=== PATIENT | female | born 1980 | race Caucasian/White ===

== ENCOUNTER 2018-04-30 09:49 | Outpatient (CLI) | payer MEDICARE, MEDICAID, SELFPAY ==
--- NOTE | 2018-04-30 09:32 | DI.RAD_ITS ---
SYMPTOMS/DIAGNOSIS: ACHILLES TENDINITIS, M76.62 LEFT ANKLE: No fracture or ankle mortise widening is seen. No talar dome defect is identified. There is minimal periarticular spurring. IMPRESSION: Minimal degenerative changes.
== END 2018-04-30 10:09 ==
PROVIDERS: PCP Internal Medicine; Visit Provider Nurse Practitioner Family
DX: M76.62 Achilles tendinitis, left leg (principal); M19.072 Primary osteoarthritis, left ankle and foot
CPT/HCPCS: 73610

== ENCOUNTER 2018-05-20 15:01 | Outpatient (REF) | payer MEDICARE, MEDICAID, SELFPAY | END 2018-05-20 15:21 | LOC: NCHCN 15:01 | PROVIDERS: PCP Internal Medicine; Visit Provider Nurse Practitioner Family | DX: M25.532 Pain in left wrist (principal) | CPT/HCPCS: 84550 ==

== ENCOUNTER → 2018-06-18 08:53 | Outpatient (BNVA) | payer MEDICARE, MEDICAID, SELFPAY | PROVIDERS: PCP Internal Medicine; Referring Provider Internal Medicine; Visit Provider Student in an Organized Health Care Education/Training Program | DX: M76.62 Achilles tendinitis, left leg (principal) | CPT/HCPCS: 99204; 99214; L4361 ==

== ENCOUNTER → 2018-07-23 09:30 | Outpatient (BNVA) | payer MEDICARE, MEDICAID, SELFPAY | PROVIDERS: PCP Internal Medicine; Referring Provider Internal Medicine; Visit Provider Student in an Organized Health Care Education/Training Program | DX: M77.52 Other enthesopathy of left foot and ankle (principal); M25.572 Pain in left ankle and joints of left foot | CPT/HCPCS: 99213 ==

== ENCOUNTER 2018-08-06 01:45 | Outpatient (CLI) | payer MEDICARE, MEDICAID, SELFPAY ==
--- NOTE | 2018-08-06 10:53 | DI.MRI_ITS ---
SYMPTOMS/DIAGNOSIS: LT ACHILLES TENDINITIS MRI OF THE LEFT ANKLE: Routine noncontrast examination was performed. The Achilles tendon has a normal appearance. No evidence of a tear is seen. The peroneal tendons are unremarkable as are the extensor and flexor ankle tendons. The anterior and posterior distal tibial and fibular ligaments, anterior posterior talofibular and the calcaneofibular ligaments are all intact. The deltoid and spring ligaments are unremarkable. The muscles show normal signal and size. No significant muscular fatty fatty is seen. There is normal marrow signal. No evidence of an occult fracture or avascular necrosis. No soft tissue mass or suspicious focal fluid collection is seen. The plantar fascia has a normal appearance. IMPRESSION: 1. No evidence of an ankle ligament or tendon tear. 2. No evidence of an occult fracture.
== END 2018-08-06 02:05 ==
PROVIDERS: PCP Internal Medicine; Visit Provider Student in an Organized Health Care Education/Training Program
DX: M76.62 Achilles tendinitis, left leg (principal)
CPT/HCPCS: 73721

== ENCOUNTER 2018-08-08 19:44 | Emergency (ER) | payer MEDICARE, MEDICAID, SELFPAY ==
[2018-08-08 19:43] VITALS: BP 110/61; PULSE 65; RESP 24; TEMP 36.6; O2SAT 97
--- NOTE | 2018-08-08 20:06 | ED.GENADUL_ITS ---
Discharge Plan Disposition Patient Disposition: HOME Condition: Good Discharge Details Chief Complaint: Dizzy/Sync Clinical Impression: Nausea, vomiting and diarrhea, Syncope Reason For Visit: CELENA Primary Care Provider: Zafar Altman ED Provider: Zafar Rodriguez Home Meds and New Rx's Prescriptions: Continued citalopram 20 MG tablet 20 mg PO DAILY RF: 0 nicotine 1 EACH patch 24 hour 1 ea Transdermal DAILY RF: 0 levalbuterol tartrate [Xopenex HFA] 15 GM HFA aerosol inhaler 45 mcg Inhalation Q6H PRN RF: 0 lorazepam 1 MG tablet 1 mg PO PRN RF: 0 Discharge Instructions Instructions: Syncope (ED), Acute Nausea and Vomiting (ED) Additional Instructions: Do not take any more amoxicillin until you discuss with your primary care. Rest and take it easy over the weekend. Decrease your caffeine intake and increase your fluid intake. Return to emergency department if further syncopal events, persistent vomiting, bloody diarrhea, fever, difficulty breathing, or other concerns. Contact primary care on Saturday for follow-up. Stand Alone Forms: Work Release Referrals: Zafar Altman [Primary Care Provider] - Medical Decision Making Patient would appear to have had an allergic type reaction, however, her symptoms completely resolved on their own. Given her complaints of pruritus with syncope and GI symptoms would be classified as anaphylaxis. She did not receive any type of therapy other than fluids and symptoms have resolved on her own. Therefore, unclear to me exactly what happened. She has had amoxicillin before. She has no complaints of now. She has normal vital signs. Nursing had done EKG and labs prior to me seeing her. EKG is normal. Labs are pending. I have decided to observe for a few hours and not treat for anything at this point. Patient has remained stable here. She complains of nausea and does continue to have diarrhea but no vomiting. She is developing a little bit of a migraine headache which is not something new for her. She has been stable otherwise. Her laboratory studies are unremarkable. I am not going to treat for allergic reaction. However, I will hold the amoxicillin and have her discuss with her primary care on Saturday. May be unrelated this may just be part of a gastroenteritis. She will receive a dose of Zofran prior to discharge. Take it easy over the weekend. No more amoxicillin. Follow-up with primary care on Saturday. Return to the ED if any further allergy type symptoms, fever, persistent vomiting, other concerns. Lab Data Lab results reviewed: Yes I reviewed the patient's lab results. ECG Data Attestation: I personally reviewed and interpreted this ECG (s) as follows: Prior ECG tracings: not available for review Interpretation: Normal EKG. Sinus rhythm at 69. Normal axis and intervals. Normal ST segments. HPI General Mode of arrival: EMS . Date/Time Provider Initiated Documentation: 08/08/18 19:56 . Limitations to Documentation: no limitations . Information obtained by: patient, EMS and RN notes reviewed . HPI Narrative: Patient presents to the ED by ambulance after possible allergic reaction. Patient reports that she has been battling URI/sinus symptoms for close to 4 weeks. She was put on amoxicillin by her primary care and took her first dose today. She has been on it previously. Within about 20 minutes of taking this she started to feel itching mostly in the back of her head/neck, arms and hands. She felt hot all over. She started to feel lightheaded and nauseated. She went into the bathroom where she had vomiting and diarrhea. She felt like she was having some difficulty breathing. Apparently there was a syncopal event. On EMS arrival she was awake and alert. She had normal vital signs. She was transported here without intervention other than 500 mL's of saline. She arrives here anxious and upset but reports that all of the other symptoms have seemingly resolved on their own. She no longer has any pruritus. She no longer has nausea or dizziness. She did not feel throat swelling or shortness of breath. Related Data Home Medications Medication Instructions Recorded Confirmed citalopram 20 mg PO DAILY tab-cap NS 07/29/13 07/23/18 levalbuterol tartrate [Xopenex HFA] 45 mcg INHALATION Q6H PRN inhaler 07/29/13 07/23/18 NS nicotine 1 ea TRANSDERMAL DAILY script NS 07/29/13 07/23/18 lorazepam 1 mg PO PRN tab-cap 08/12/13 07/23/18 Allergies Allergy/AdvReac Type Severity Reaction Status Date / Time codeine Allergy Unverified 06/18/18 09:01 aspirin AdvReac Severe Anxiety, Unverified 06/18/18 09:01 sobbing NSAIDS (Non-Steroidal AdvReac GI Unverified 06/18/18 09:01 Anti-Inflamma General Stated Complaint: Dizzy/Sync BHANU: 3 Review of Systems Constitutional Denies fever(s), Denies headache(s) and Reports weakness Eyes Denies eye discharge and Denies eye pain ENT Denies headache(s), Reports nasal congestion, Denies neck pain, Reports sinus pain, Reports sinus pressure, Denies throat swelling and Denies tongue swelling Cardiovascular Denies chest pain, Denies diaphoresis, Reports syncope, Denies edema and Reports dyspnea Respiratory Denies cough, Reports dyspnea, Denies stridor and Denies wheezing Gastrointestinal Denies abdominal pain, Reports diarrhea, Reports nausea and Reports vomiting Genitourinary Denies dysuria and Denies pelvic pain Musculoskeletal Denies back pain, Denies neck pain and Denies numbness Integumentary/Breasts Reports pruritus and Denies rash Neurologic Reports syncope, Denies headache(s), Denies focal weakness, Denies numbness and Reports weakness Allergic/Immunologic Denies throat swelling, Denies tongue swelling and Denies wheezing PFSH Medical History Anxiety (Chronic) Asthma (Chronic) Depression (Chronic) Surgical History H/O laparoscopy (Inactive) Social History Smoking and Tabacco status: Current every day Exam Const General: cooperative, comfortable and no acute distress Nutritional Appearance: obese Orientation: alert and oriented x3 [facility] Head: normocephalic and atraumatic Throat: posterior oropharynx normal, uvula midline and no uvular edema Eyes Conjunctivae: conjunctivae normal Neck Neck: trachea midline and supple Resp Effort & Inspection: normal respiratory effort Auscultation: clear to auscultation bilaterally Cardio Rate: regular rate Rhythm: regular rhythm Heart Sounds: S1 normal and S2 normal GI Palpation: soft, not firm and nontender Skin General skin exam: no erythema Rashes: no rashes Neuro General: alert, oriented x3, moves all extremities, no focal motor deficits and CN's II-XI intact bilaterally Cognition: normal cognition Speech: speech normal Sensory Exam: no sensory deficits noted Extrem General: normal to inspection and no clubbing, cyanosis or edema Course Vital Signs Temperature 97.9 F 08/08/18 19:43 Pulse 65 08/08/18 19:43 Respiratory Rate 24 08/08/18 19:43 Blood Pressure 110/61 03/08/19 19:43 Pulse Oximetry 97 08/08/18 19:43 Temperature 97.9 F 08/08/18 19:43 Temperature Source Skin 08/08/18 19:43 Pulse 65 08/08/18 19:43 Respiratory Rate 24 08/08/18 19:43 Blood Pressure 110/61 08/08/18 19:43 Blood Pressure Position Sitting 08/08/18 19:43 Pulse Oximetry 97 08/08/18 19:43 Oxygen Delivery Method Room Air 08/08/18 19:43 Oxygen Flow Rate 0 08/08/18 19:43
[2018-08-08 20:13] LABS: Abs Immature Grans 0.05 k/cumm (0.0-0.09); Absolute Basophil Count 0.03 k/cumm (0.0-0.2); Absolute Eosinophil Count 0.29 k/cumm (0.0-0.7); Absolute Lymphocyte Count 4.22 k/cumm (1.2-3.4); Absolute Monocyte Count 0.44 k/cumm (0.11-0.7); Absolute Neutrophil Count 6.25 k/cumm (1.2-6.7); Basophils % 0.3; Eosinophils % 2.6; HCT 41.2 % (36.0-46.0); HGB 14.2 g/dL (12.0-15.5); Immature Grans % 0.4; Lymphocytes % 37.4; Mean Corp. HGB Concentration 34.5 g/dL (32.0-36.0); Mean Corpuscular Hemoglobin 31.3 pg (27.0-33.0); Mean Corpuscular Volume 90.7 fL (80-95); Mean Platelet Volume 9.5 fL (8.0-11.0); Monocytes % 3.9; Neutrophils % 55.4; Platelet Count 334 x1000/uL (130-400); RBC 4.54 m/cumm (4.00-5.20); RBC Distribution Width 12.9 % (11.7-14.6); White Blood Cell Count 11.28 k/cumm (4.4-10.8)
[2018-08-08 20:22] LABS: ALT 21 U/L (12-78); AST 16 U/L (15-37); Albumin 3.1 g/dL (3.4-5.0); Alkaline Phosphatase 73 U/L (46-116); Anion Gap 11.2 mmol/L (3-11); BUN 9 mg/dL (7-18); Bilirubin, Total 0.2 mg/dL (0.2-1.0); CO2 26.8 mmol/L (21.0-32.0); CREATININE 0.99 mg/dL (0.55-1.02); Calcium 8.5 mg/dL (8.5-10.1); Chloride 103 mmol/L (98-107); Glucose 113 mg/dL (70-100); Magnesium 1.8 mg/dL (1.8-2.4); Potassium 3.3 mmol/L (3.5-5.1); Sodium 141 mmol/L (136-145); Total Protein 6.4 g/dL (6.4-8.2)
[2018-08-08 20:28] LABS: Troponin I < 0.02 ng/mL (0.00-0.06)
[2018-08-08] MEDS: Ondansetron 4 MG/2 ML VIAL IVP (23:05)
[2018-08-08] MEDS: Lactated Ringers 1,000 ML 1000 ML IV (23:20)
[2018-08-09 00:09] VITALS: BP 104/61; PULSE 65; RESP 24; TEMP 36.6; O2SAT 97
== END 2018-08-09 00:09 | disposition home or self-care (01) ==
PROVIDERS: Emergency Provider Emergency Medicine; PCP Internal Medicine
DX: L29.9 Pruritus, unspecified (principal); R55 Syncope and collapse; R19.7 Diarrhea, unspecified; R11.0 Nausea; I95.9 Hypotension, unspecified; T36.0X5A Adverse effect of penicillins, initial encounter
CPT/HCPCS: 36415; 80053; 93005; 96361; 96374; 99284; 83735; 84484; 85025; 93010; 99285; J2405

== ENCOUNTER 2018-08-21 14:12 | Outpatient (REF) | payer MEDICARE, MEDICAID, SELFPAY ==
[2018-08-21 19:25] LABS: Anion Gap 9.1 mmol/L (3-11); BUN 9 mg/dL (7-18); CO2 25.9 mmol/L (21.0-32.0); CREATININE 0.76 mg/dL (0.55-1.02); Calcium 9.2 mg/dL (8.5-10.1); Chloride 104 mmol/L (98-107); Glucose 91 mg/dL (70-100); Potassium 4.3 mmol/L (3.5-5.1); Sodium 139 mmol/L (136-145)
[2018-08-21 19:54] LABS: HCT 39.3 % (36.0-46.0); HGB 13.7 g/dL (12.0-15.5); Mean Corp. HGB Concentration 34.9 g/dL (32.0-36.0); Mean Corpuscular Hemoglobin 32.2 pg (27.0-33.0); Mean Corpuscular Volume 92.3 fL (80-95); Mean Platelet Volume 9.9 fL (8.0-11.0); Platelet Count 321 x1000/uL (130-400); RBC 4.26 m/cumm (4.00-5.20); RBC Distribution Width 12.7 % (11.7-14.6); White Blood Cell Count 8.12 k/cumm (4.4-10.8)
== END 2018-08-21 14:32 ==
LOC: NCHCN 14:12
PROVIDERS: PCP Internal Medicine; Visit Provider Nurse Practitioner Family
DX: R19.7 Diarrhea, unspecified (principal); I95.9 Hypotension, unspecified
CPT/HCPCS: 80048; 85027; 84443

== ENCOUNTER 2018-12-23 00:34 | Outpatient (CLI) | payer MEDICARE, MEDICAID, SELFPAY ==
--- NOTE | 2018-12-23 11:00 | DI.US_ITS ---
SYMPTOMS/DIAGNOSIS: NECK PAIN, M54.2 ULTRASOUND EVALUATION OF THE RIGHT NECK: No evidence of a subcutaneous fluid collection is seen on the right. The visualized portions of the right common carotid artery, proximal, internal and external carotids are unremarkable. Small benign appearing lymph nodes are seen in the right neck. Incidental note is made of several thyroid nodules. Nonemergent thyroid ultrasound should be considered for further evaluation. IMPRESSION: No evidence of a soft tissue fluid collection or mass.
== END 2018-12-23 00:54 ==
PROVIDERS: PCP Internal Medicine; Visit Provider Nurse Practitioner Family
DX: M54.2 Cervicalgia (principal); R59.0 Localized enlarged lymph nodes; E04.2 Nontoxic multinodular goiter
CPT/HCPCS: 76536

== ENCOUNTER 2018-12-25 10:01 | Outpatient (CLI) | payer MEDICARE, MEDICAID, SELFPAY ==
--- NOTE | 2018-12-25 13:30 | DI.US_ITS ---
SYMPTOMS/DIAGNOSIS: THYROID NODULE, E04.1 THYROID ULTRASOUND: The right lobe of the thyroid measures 1.5 x 1.4 x 5 cm. The left lobe measures 1.3 x 1.6 x 4.9 cm. The overall thyroid echogenicity is mildly heterogeneous. There are several small hypoechoic nodules in both lobes of the thyroid, measuring less than 8 mm in size. There are no suspicious thyroid nodules. IMPRESSION: Normal-sized thyroid. There are multiple small thyroid nodules. No dominant suspicious nodule is identified.
== END 2018-12-25 10:21 ==
PROVIDERS: PCP Internal Medicine; Visit Provider Nurse Practitioner Family
DX: E04.2 Nontoxic multinodular goiter (principal)
CPT/HCPCS: 76536

== ENCOUNTER 2020-03-26 09:27 | Emergency (ER) | payer MEDICARE, MEDICAID, SELFPAY ==
[2020-03-26 09:31] VITALS: BP 119/83; PULSE 80; RESP 20; TEMP 36.6; O2SAT 99
--- NOTE | 2020-03-26 09:32 | ED.GENADUL_ITS ---
Discharge Plan Disposition Patient Disposition: HOME Condition: Good Discharge Details Clinical Impression: Strain of right trapezius muscle Primary Care Provider: Lashawn Mcnally ED Provider: Janet Cerda Home Meds and New Rx's Prescriptions: New metaxalone [Skelaxin] 800 mg tablet 800 mg PO TID PRN (Reason: muscle pain) Qty: 7 RF: 0 celecoxib [Celebrex] 200 mg capsule 200 mg PO BID PRN (Reason: pain) Qty: 14 RF: 0 Continued levalbuterol tartrate [Xopenex HFA] 15 GM HFA aerosol inhaler 45 mcg Inhalation Q6H PRN RF: 0 Discharge Instructions Instructions: Muscle Spasm (ED) Additional Instructions: Please encourage gentle stretching as discussed. Please continue to use the arm as much as possible, with the exception of activities that cause severe pain, as this will help relieve the muscle spasm. However, do not perform any heavy lifting at this may increase her discomfort. please continue with Tylenol 1000 mg 4 times daily to help with pain. Topical patches such as Salonpas or Lidoderm patches may help with discomfort. You may use the Skelaxin as needed to help with muscle spasm. Please not drive will take this medication as it can cause sedation. Keep out of reach of children. You may also use the Celebrex to help with discomfort, please use as directed. Please follow-up with your primary care in 1 week if pain is not resolved. If you develop numbness, tingling, increased pain or other new/worsening symptom please seek care urgently once again Stand Alone Forms: Work Release Referrals: Lashawn Mcnally [Primary Care Provider] - Discharge Data Discharge Date/Time-TO BE ENTERED AT DEPARTURE: 03/26/20 10:35 Medical Decision Making Patient is a 39-year-old [id number] female presented to complaint of right shoulder pain. She reports approximately 1/2 hours prior to arrival she was walking on a hill when she slipped on some mud and fell backwards landing on the right shoulder. She denies any numbness or tingling. Denies other injury the time of the incident. Indicates the upper area as area of maximal discomfort. She does trace the trapezius. She denies any pain in the elbow, wrist, hand. No previous surgeries to the shoulder. Patient status post tubal ligation. On exam, patient appears Nontoxic. She has no midline tenderness with cervical spine palpation. No step-off deformity. She has good range of motion of her neck other this does elicit some discomfort that radiates down the right trapezius but it seems quite lateral and far away from midline. She is forward to motion of the elbow, wrist, hands with no neurological deficits noted. 2+ distal pulses. Patient is unwilling to move her shoulder secondary to discomfort. She has no anterior pain. No Endy deformity. No pain over bicep insertion. No pain along the clavicle. No scapular pain. She does have some mild discomfort laterally at the glenohumeral joint. However, I the pain does seem maximal over the trapezius. She did drive himself here so we will hold off on any muscle relaxants. Will give Tylenol, Lidoderm patch obtain imaging. FINDINGS: Bones/joints: There is no evidence of acute fracture.There is no evidence of malalignment or dislocation. Soft tissues: Normal. IMPRESSION: There is no evidence of acute fracture.There is no evidence of malalignment or dislocation. Discussed his findings with the patient. I advised stretching techniques. Encouraged hydration. We discussed topical and oral options of discomfort. Patient does have a GI upset elicited with NSAIDs. However, she reports that she has been on [place] 2 inhibitors with out issue historically. Will prescribe Celebrex to help with her discomfort. We will also prescribe Skelaxin to help with muscle spasm. Return precautions were discussed. Encourage close follow- up with primary care. Advised massage heat. All of her questions and concerns were addressed and she is agreement this plan. HPI General Mode of arrival: ambulatory . Date/Time Provider Initiated Documentation: 03/26/20 09:32 . Limitations to Documentation: no limitations . Information obtained by: RN notes reviewed . History of Present Illness 39 year old F presents to the emergency department with the chief complaint of right shoulder pain, described as severe, with intensity rated at 9. Quality is described as sharp, and is localized to the right and upper extremity. P atient reports no radiation. Patient started experiencing this hour(s) (2.5) and it has been constant. Immobilization improves symptom(s), Movement worsens symptoms . Patient notes no other symptoms.. Patient did receive the following treatments prior to arrival, none Related Data Home Medications Medication Instructions Recorded Confirmed levalbuterol tartrate [Xopenex HFA] 45 mcg INHALATION Q6H PRN inhaler 07/29/13 03/26/20 NS celecoxib [Celebrex] 200 mg PO BID PRN #14 cap 03/26/20 metaxalone [Skelaxin] 800 mg PO TID PRN #7 tab 03/26/20 Previous Rx's Medication Instructions Recorded celecoxib [Celebrex] 200 mg PO BID PRN #14 cap 03/26/20 metaxalone [Skelaxin] 800 mg PO TID PRN #7 tab 03/26/20 Allergies Allergy/AdvReac Type Severity Reaction Status Date / Time codeine Allergy Unverified 03/26/20 09:36 aspirin AdvReac Severe Anxiety, Unverified 03/26/20 09:36 sobbing NSAIDS (Non-Steroidal AdvReac GI Unverified 03/26/20 09:36 Anti-Inflamma General BHANU: 3 Review of Systems Constitutional Constitutional: Reports as per HPI, Denies chills, Denies fever(s), Denies headache(s) and Denies weakness ENT Ears, Nose, Mouth, and Throat: Denies headache(s) Cardiovascular Cardiovascular: Reports as per HPI Respiratory Respiratory: Reports as per HPI and Denies cough Musculoskeletal Musculoskeletal: Reports as per HPI and Denies tingling Integumentary/Breasts Skin/Breast: Reports as per HPI, Denies rash and Denies wounds Neurologic Neurologic: Reports as per HPI, Denies headache(s), Denies tingling, Denies paresthesias and Denies weakness PFSH Medical History Anxiety Asthma Depression Surgical History H/O laparoscopy Social History Smoking/Tobacco Use Status: Current every day Tobacco Type: cigarettes Alcohol Intake: never Drug use: Never Substance use type: does not use Do you feel safe at home: Yes Do you feel safe in your relationship?: Yes Exam Const General: cooperative, healthy appearing, comfortable, no acute distress, well developed and well groomed Nutritional Appearance: average body habitus and well nourished Orientation: alert and awake [facility] Head: normal to inspection, no palpable skull fracture and atraumatic Neck Neck: normal visual inspection, full ROM, no lymphadenopathy, no meningeal signs and trachea midline Chest Chest: normal inspection of the chest Resp Effort & Inspection: normal respiratory effort, able to speak in complete sentences and no respiratory distress Auscultation: clear to auscultation bilaterally Cardio Rate: regular rate Rhythm: regular rhythm Heart Sounds: S1 normal and S2 normal Back/Spine/Pelvis Back: no CVA tenderness Cervical Spine: normal cervical lordosis, cervical ROM normal, No cervical spin al tenderness and No step off deformity Thoracic/Lumbar Spine: thoracic and lumbar spine normal to inspection and No thoracic spinal tenderness Skin General skin exam: no rashes or lesions noted Lesions: no lesions Rashes: no rashes Trauma: no lacerations or abrasions Neuro General: patient alert and patient awake Cognition: normal cognition Speech: speech normal Gait: normal gait Motor: muscle tone normal throughout Sensory Exam: no sensory deficits noted Extrem General: normal to inspection, capillary refill normal, no joint enlargement, no clubbing, cyanosis or edema and normal gait Right upper extremity: normal to inspection, normal capillary refill, no joint enlargement, shoulder/upper arm Details: normal to inspection, tenderness Location: not of the clavicle, not of the proximal humerus, not of the scapula, not of the mid-shaft humerus and not over the biceps tendon, axillary nerve sensory function normal and abnormal ROM (patient unwilling to move secondary to pain in superior aspect); no swelling, no abrasions, no lacerations, no ecchymosis, no crepitus, no penetrating wound, no deformity and no unusual warmth, elbow/forearm Details: normal to inspection, normal ROM and distal pulses intact; no tenderness, no swelling, no ecchymosis and no deformity and wrist Details: normal to inspection, normal ROM, normal vascular exam and radial pulse present; no tenderness, no swelling, no ecchymosis, no crepitus and no deformity; ROM limited Shoulder/upper arm images: 1. area of discomfort Psych Appearance: grossly normal and well kempt Mental Status: mental status grossly normal Speech and Movement: speech and movement normal
--- NOTE | 2020-03-26 09:45 | DI.RAD_ITS ---
EXAM: XR SHOULDER RT COMPLETE 2+V CLINICAL HISTORY: fall TECHNIQUE: COMPARISON: No exams were available for comparison FINDINGS: Five views were obtained. There is no evidence of acute fracture or dislocation. IMPRESSION: RADIATION DOSE DELIVERED: Total DLP
[2020-03-26] MEDS: Acetaminophen 500 MG TAB 1000 MG PO (09:54)
--- NOTE | 2020-03-26 10:17 | DI.VRAD_ITS ---
PROCEDURE INFORMATION: Exam: XR Right Shoulder Exam date and time: 03/26/2020 10:06 AM Age: 39 years old Clinical indication: Other: Fall on hill TECHNIQUE: Imaging protocol: XR Right shoulder. Views: 2 or more views. COMPARISON: No relevant prior studies available. FINDINGS: Bones/joints: There is no evidence of acute fracture.There is no evidence of malalignment or dislocation. Soft tissues: Normal. IMPRESSION: There is no evidence of acute fracture.There is no evidence of malalignment or dislocation. Dictated and Authenticated by: Quinton Kearns MD. Ordering:SCOTT Gonzales MD
[2020-03-26] MEDS: Lidocaine 5% Patch 1 PATCH TP (10:25)
== END 2020-03-26 10:35 | disposition home or self-care (01) ==
PROVIDERS: Emergency Provider Physician Assistant; PCP Nurse Practitioner Family
DX: S29.012A Strain of muscle and tendon of back wall of thorax, initial encounter (principal); W18.39XA Other fall on same level, initial encounter
CPT/HCPCS: 99283; 73030

== ENCOUNTER 2020-10-23 12:56 | Emergency (ER) | payer MEDICARE, MEDICAID, SELFPAY ==
--- NOTE | 2020-10-23 12:58 | ED.GENADUL_ITS ---
Discharge Plan Disposition Patient Disposition: HOME Condition: Stable Discharge Details Clinical Impression: Tick bite Primary Care Provider: Lashawn Mcnally ED Provider: Jillian Otto Home Meds and New Rx's Prescriptions: Continued levalbuterol tartrate [Xopenex HFA] 15 GM HFA aerosol inhaler 45 mcg Inhalation Q6H PRN RF: 0 metaxalone [Skelaxin] 800 mg tablet 800 mg PO TID PRN (Reason: muscle pain) Qty: 7 RF: 0 celecoxib [Celebrex] 200 mg capsule 200 mg PO BID PRN (Reason: pain) Qty: 14 RF: 0 Discharge Instructions Instructions: Lyme Disease (ED), Tick Bite (ED) Additional Instructions: You were given prophylaxis for Lyme disease, however it is unlikely that this tick bite will result in Lyme disease. Your headache and neck pain may be a result of a local inflammatory reaction at the tick bite site. You were given additional instructions regarding Lyme disease and what to look out for. Drink plenty of fluids and get plenty of rest. Alternate tylenol and motrin as needed and directed for pain. Follow-up with your primary care doctor in 1 week. Return to the emergency department with any worsening or new concerning symptoms fevers, body aches, chills or bull's-eye rash.. Discharge Data Discharge Date/Time-TO BE ENTERED AT DEPARTURE: 10/23/20 13:59 Medical Decision Making 40-year-old female w/ a h/o hysterectomy who presents with tick embedded in the right side of her neck that she noticed this morning. She states she thinks it has been in place for 24 hours but not longer than this . Tick appears consistent with wood tick, does not appear engorged and patient is afebrile without any evidence of bull's-eye rash. Discussed with patient that there did not appear to be significant risk factors for Lyme disease, however as she is complaining of headache and neck pain, will cover with prophylactic dose of doxycycline PO x 1. Discussed that her headache and neck pain could be due to a local inflammatory reaction. Tick was removed completely intact by the tick scoop remover. Area appeared clean and dry without evidence of cellulitis or trauma. Advised to follow up with the primary care doctor for re-evaluation. Usual and customary return precautions given prior to discharge. Medical Records Medical records reviewed: Yes I reviewed the patient's medical records. HPI General Mode of arrival: ambulatory . Date/Time Provider Initiated Documentation: 10/23/20 12:58 . Limitations to Documentation: no limitations . Information obtained by: patient . HPI Narrative: Patient is a 40-year-old female who presents with tick embedded in the right side of her neck. She thinks the tick has been there for the past 24 hours but not longer. She states she does not think it is engorged. She states she noticed it this morning. She states over the past few hours she has had some headache and neck pain. She denies any fever, bodyaches, chills, or rash. Related Data Home Medications Medication Instructions Recorded Confirmed levalbuterol tartrate [Xopenex HFA] 45 mcg INHALATION Q6H PRN inhaler 07/29/13 10/23/20 NS celecoxib [Celebrex] 200 mg PO BID PRN #14 cap 03/26/20 metaxalone [Skelaxin] 800 mg PO TID PRN #7 tab 03/26/20 10/23/20 Previous Rx's Medication Instructions Recorded celecoxib [Celebrex] 200 mg PO BID PRN #14 cap 03/26/20 metaxalone [Skelaxin] 800 mg PO TID PRN #7 tab 03/26/20 Allergies Allergy/AdvReac Type Severity Reaction Status Date / Time codeine Allergy Unverified 03/26/20 09:36 aspirin AdvReac Severe Anxiety, Unverified 03/26/20 09:36 sobbing NSAIDS (Non-Steroidal AdvReac GI Unverified 03/26/20 09:36 Anti-Inflamma General BHANU: 3 Review of Systems All systems reviewed & are unremarkable except as noted in HPI and below Constitutional Constitutional: Reports as per HPI, Denies chills and Denies fever(s) Eyes Eyes: Denies blurry vision ENT Ears, Nose, Mouth, and Throat: Denies dizziness, Denies sore throat and Denies throat swelling Cardiovascular Cardiovascular: Denies chest pain and Denies dyspnea Respiratory Respiratory: Denies cough and Denies dyspnea Gastrointestinal Gastrointestinal: Denies abdominal pain, Denies diarrhea and Denies vomiting Genitourinary Genitourinary: Denies hematuria and Denies dysuria Musculoskeletal Musculoskeletal: Denies back pain and Denies numbness Integumentary/Breasts Skin/Breast: Denies lesions and Denies rash Neurologic Neurologic: Denies dizziness, Denies localized weakness and Denies numbness Allergic/Immunologic Allergic/Immunologic: Denies throat swelling PFSH Medical History Anxiety Asthma Depression Surgical History H/O laparoscopy Social History Smoking/Tobacco Use Status: Current every day Tobacco Type: cigarettes Smoking risk assessment performed?: Yes Alcohol Intake: never Drug use: Never Substance use type: does not use Do you feel safe at home: Yes Do you feel safe in your relationship?: Yes Exam Const General: cooperative, healthy appearing and no acute distress HENMT Head: normal to inspection Mouth: oral mucosae normal Eyes General: appearance normal, both eyes and all related structures Neck Neck: normal visual inspection Neck images: 1. Tick noted embedded in the R lateral base of neck. Tick appears consistent with wood tick and does not appear engorged. There is no surrounding erythema, edema, ecchymosis, induration, fluctuance or crepitus of tissue. Resp Effort & Inspection: normal respiratory effort and able to speak in complete sentences Cardio Rate: regular rate Skin General skin exam: no rashes or lesions noted Neuro General: patient alert, patient awake and patient oriented x3 Motor: muscle tone normal throughout Extrem General: normal to inspection and full ROM Psych Appearance: grossly normal Affect: normal affect
[2020-10-23 13:00] VITALS: BP 119/78; PULSE 88; RESP 18; TEMP 36.3; O2SAT 96
[2020-10-23] MEDS: Doxycycline Hyclate 100 MG CAP 200 MG PO (13:15)
== END 2020-10-23 13:59 | disposition home or self-care (01) ==
LOC: ER 13:13
PROVIDERS: Emergency Provider Physician Assistant; PCP Nurse Practitioner Family
DX: S10.86XA Insect bite of other specified part of neck, initial encounter (principal); W57.XXXA Bitten or stung by nonvenomous insect and other nonvenomous arthropods, initial encounter; R51.9 Headache, unspecified; M54.2 Cervicalgia
CPT/HCPCS: 99283

== ENCOUNTER 2021-01-09 16:49 | Emergency (ER) | payer MEDICARE, MEDICAID, SELFPAY ==
[2021-01-09 17:04] VITALS: BP 111/63; PULSE 78; RESP 16; TEMP 36.3; O2SAT 99
--- NOTE | 2021-01-09 17:44 | ED.GENADUL_ITS ---
Discharge Plan Disposition Patient Disposition: HOME Condition: Good Discharge Details Clinical Impression: Exposure to bat without known bite, Encounter for prophylactic rabies immune globin Primary Care Provider: Lashawn Mcnally ED Provider: Bernadette Carvajal Home Meds and New Rx's Prescriptions: Continued fluoxetine 20 mg capsule 20 mg PO DAILY RF: 0 Discharge Instructions Additional Instructions: Please return for rabies vaccine on day 3, 7, and 14 Should you develop any flulike symptoms, please return for reevaluation Discharge Data Discharge Date/Time-TO BE ENTERED AT DEPARTURE: 01/09/21 18:55 Medical Decision Making Patient appears well, she will receive rabies vaccine and immunoglobulin She will return that day 3, 7, and 14, this was scheduled Discharged home asymptomatic with infusion clinic follow-up HPI General Mode of arrival: ambulatory . Date/Time Provider Initiated Documentation: 01/09/21 17:06 . Limitations to Documentation: no limitations . Information obtained by: patient . HPI Narrative: This 40-year-old female presents with report of waking up in her home 3 days ago with a bat. She called her primary care physician and was told to come to the emergency room for rabies vaccine and immunoglobulin. She is asymptomatic and otherwise feels well. She denies known bite. Related Data Home Medications Medication Instructions Recorded Confirmed fluoxetine 20 mg PO DAILY 01/09/21 01/09/21 Allergies Allergy/AdvReac Type Severity Reaction Status Date / Time amoxicillin Allergy Severe Anaphylaxis Unverified 01/09/21 17:06 codeine Allergy Unverified 03/26/20 09:36 aspirin AdvReac Severe Anxiety, Unverified 03/26/20 09:36 sobbing NSAIDS (Non-Steroidal AdvReac GI Unverified 03/26/20 09:36 Anti-Inflamma General Stated Complaint: AnimalBite BHANU: 4 Review of Systems Narrative: Review of systems negative x3 aside from where indicated in HPI PFSH Medical History Anxiety Asthma Depression Surgical History H/O laparoscopy Social History Smoking/Tobacco Use Status: Current every day Tobacco Type: cigarettes Smoking risk assessment performed?: Yes Alcohol Intake: never Drug use: Never Substance use type: does not use Do you feel safe at home: Yes Do you feel safe in your relationship?: Yes Exam Const General: healthy appearing Resp Effort & Inspection: normal respiratory effort Cardio Rate: regular rate Skin General skin exam: no rashes or lesions noted Neuro General: patient alert and patient oriented x3 Course Vital Signs Vital signs: Vital Signs Temperature 36.3 C L 01/09/21 17:04 Pulse 78 01/09/21 17:04 Respiratory Rate 16 01/09/21 17:04 Blood Pressure 111/63 01/09/21 17:04 Pulse Oximetry 99 01/09/21 17:04 Temperature 36.3 C L 01/09/21 17:04 Temperature Source Temporal Artery Scan 01/09/21 17:04 Pulse 78 01/09/21 17:04 Respiratory Rate 16 01/09/21 17:04 Respiratory Effort Non-Labored 01/09/21 17:07 Blood Pressure 111/63 01/09/21 17:04 Blood Pressure Position Sitting 01/09/21 17:04 Pulse Oximetry 99 01/09/21 17:04 Oxygen Delivery Method Room Air 01/09/21 17:04 Oxygen Flow Rate 0 01/09/21 17:04 Pain Level 0 01/09/21 17:04
[2021-01-09] MEDS: Rabies Immune Globulin 1,500 UNIT/5 ML VIAL 1668 UNITS IM (18:42)
== END 2021-01-09 18:55 | disposition home or self-care (01) ==
PROVIDERS: Emergency Provider Physician Assistant; PCP Nurse Practitioner Family
DX: F41.9 Anxiety disorder, unspecified (principal); Z20.3 Contact with and (suspected) exposure to rabies
CPT/HCPCS: 90471; 96372; 99284; 90675; 99283

== ENCOUNTER 2021-01-10 19:19 | Outpatient (REF) | payer MEDICARE, MEDICAID, SELFPAY ==
[2021-01-12 12:29] LABS: COVID-19 RT-PCR UVMMC Result Negative (Negative)
== END 2021-01-10 19:20 | disposition home or self-care (01) ==
LOC: LBN 19:19
PROVIDERS: PCP Nurse Practitioner Family; Visit Provider Student in an Organized Health Care Education/Training Program
DX: Z20.822 Contact with and (suspected) exposure to COVID-19 (principal); R09.81 Nasal congestion
CPT/HCPCS: U0003

== ENCOUNTER 2021-01-22 16:07 | Emergency (ER) | payer MEDICARE, MEDICAID, SELFPAY ==
[2021-01-22 16:09] VITALS: BP 123/54; PULSE 88; RESP 16; TEMP 36.7; O2SAT 98
--- NOTE | 2021-01-22 16:17 | W.ED.GENAD ---
Discharge Plan Disposition Patient Disposition: HOME Condition: Stable Discharge Details Clinical Impression: Headache Primary Care Provider: Lashawn Mcnally ED Provider: Jillian Otto Home Meds and New Rx's Prescriptions: Continued fluoxetine 20 mg capsule 20 mg PO DAILY RF: 0 Discharge Instructions Instructions: General Headache (ED) Additional Instructions: Drink plenty of fluids and get plenty of rest. Alternate tylenol and motrin as needed and directed for pain. Take the Compazine as needed and directed for nausea and vomiting. Call your neurologist on Saturday morning to schedule a follow-up appointment for reevaluation. Return to the emergency department with any worsening or new concerning symptoms such as worsening or persistent headaches, persistent vomiting or any other concerns. Referrals: Eugenio Hernandez [ NON-[facility] STAFF PHYSICIAN] - Discharge Data Discharge Date/Time-TO BE ENTERED AT DEPARTURE: 01/22/21 19:20 Discharge Physician: Jillian Otto Medical Decision Making 40-year-old female with a history of known right ophthalmic artery aneurysm followed by [facility] neurology presents for a brief episode of pinching right-sided temporal headache now with right occipital headache, dizziness, nausea and right facial numbness that started 1 hour ago. Review of [facility] records note that patient had an MRI angiogram of the head without contrast on 11/02/20 which noted a stable right ophthalmic artery aneurysm Patient appears slightly uncomfortable but nontoxic. Her vitals are within normal limits. She has no focal deficits on exam. No tenderness at the site of the right temporal artery. No meningeal signs. She denies thunderclap quality and the brief episode of pinching type pain does not appear consistent with subarachnoid hemorrhage. History and presentation does not appear consistent with meningitis. Differential diagnosis includes ruptured aneurysm, CVA, dehydration, electrolyte abnormality, migraine headache, tension headache, etc. we will place an IV, bolus IV fluids, screening labs, CTA head and neck and give a dose of IV Tylenol, Decadron and Compazine and reassess. Labs and imaging reviewed and unremarkable. Normal white blood cell count. Potassium 3.4. Troponin negative. CTA head and neck negative for acute findings and do not mention the ophthalmic artery aneurysm. Patient reassessed and she feels better and is requesting to go home. Case discussed with [facility] neurology --presentation does not appear consistent with subarachnoid hemorrhage and the brief episode of pinching type pain does not sound consistent with an acute neurological event. Agrees with plan for discharge to home with follow-up with neurology Dr. Hernandez as outpatient for reevaluation and consideration for repeat MRI brain. Usual and customary return precautions given prior to discharge. Medical Records Medical records reviewed: Yes I reviewed the patient's medical records. Imaging Data Radiologic Study: Radiologist's impression: CT Angiography Head With Contrast, Arteriography Exam date and time: 01/22/2021 4:50 PM Age: 40 years old Clinical indication: Pain; Headache TECHNIQUE: Imaging protocol: Computed tomography angiography of the head with contrast. Exam focused on the arteries. 3D rendering (Not supervised by radiologist): MIP and/or 3D reconstructed images were created by the technologist. COMPARISON: US soft tissue head or neck 12/23/2018 11:38 AM FINDINGS: ANTERIOR CIRCULATION: Right internal carotid artery: Intracranial segment is patent with no significant stenosis. No aneurysm. Right middle cerebral artery: No occlusion or significant stenosis. No aneurysm. Right anterior cerebral artery: No occlusion or significant stenosis. No aneurysm. Left internal carotid artery: Intracranial segment is patent with no significant stenosis. No aneurysm. Left middle cerebral artery: No occlusion or significant stenosis. No aneurysm. Left anterior cerebral artery: No occlusion or significant stenosis. No aneurysm. POSTERIOR CIRCULATION: Right vertebral artery: The intradural right vertebral artery is mildly hypoplastic which is a normal variation. No occlusion or significant stenosis. No aneurysm. Left vertebral artery: No occlusion or significant stenosis. No aneurysm. Basilar artery: No occlusion or significant stenosis. No aneurysm. Right posterior cerebral artery: No occlusion or significant stenosis. No aneurysm. Left posterior cerebral artery: P1 segment of the left posterior cerebral artery is hypoplastic which is a normal variation. Remaining branches of left posterior cerebral arteries are within normal limits. Brain: Briggs-white matter differentiation is normal. There is no mass effect or midline shift. There is no intra-axial hemorrhage. There is no extra-axial fluid collection. Cerebral ventricles: Ventricles, sulci and basal cisterns are within normal limits. Pituitary gland and sella: There is partial empty sella. Bones/joints: Unremarkable. No acute fracture. Soft tissues: Unremarkable. Paranasal sinuses: There is mucous retention cyst or polyp in the posterior cell of the left anterior ethmoidal air cells. IMPRESSION: 1. No acute intracranial abnormality. 2. No major vessel cut off or high-grade stenosis in the arteries of the [id number]. 3. No intracranial aneurysm identified. CT Angiography Neck With Contrast Exam date and time: 01/22/2021 4:50 PM Age: 40 years old Clinical indication: Pain; Headache TECHNIQUE: Imaging protocol: Computed tomography angiography of the neck with contrast. 3D rendering (Not supervised by radiologist): MIP and/or 3D reconstructed images were created by the technologist. COMPARISON: US soft tissue head or neck 12/23/2018 11:38 AM FINDINGS: Right common carotid artery: No stenosis. No dissection or occlusion. Right internal carotid artery: No stenosis of the extracranial segment. No dissection or occlusion. Right external carotid artery: No occlusion or stenosis of the origin. Left common carotid artery: No stenosis. No dissection or occlusion. Left internal carotid artery: No stenosis of the extracranial segment. No dissection or occlusion. Left external carotid artery: No occlusion or stenosis of the origin. Right vertebral artery: No stenosis. No dissection or occlusion. Left vertebral artery: Left vertebral artery is dominant. Cerebral ventricles: Mild prominence of the bilateral laryngeal ventricles noted. Thyroid: There is 6 mm nodule in the left lobe of the thyroid gland. Additional 7 mm nodule suspected in the right lobe. Correlate with the ultrasound of the thyroid gland. Soft tissues: Normal. No significant soft tissue swelling. Bones/joints: No acute fracture. IMPRESSION: No stenosis or occlusion in the internal carotid or vertebral arteries. Lab Data Lab results reviewed: Yes I reviewed the patient's lab results. Labs: Laboratory Tests Range/Units 01/22/21 01/22/21 01/22/21 16:22 16:22 16:22 WBC (4.4-10.8) 10^3/uL 10.22 RBC (3.93-5.22) 10^6/uL 4.19 Hgb (11.2-15.7) g/dL 13.2 Hct (36.0-46.0) % 38.1 MCV (80-95) fL 90.9 MCH (27.0-33.0) pg 31.5 MCHC (32.0-36.0) % 34.6 RDW (11.7-14.6) % 11.9 Plt Count (130-400) 10^3/uL 268 MPV (8.0-11.0) fL 9.2 Immature Gran % 0.2 Neutrophils % 48.7 Lymphocytes % 37.0 Monocytes % 6.4 Eosinophils % 6.7 Basophils % 1.0 Nucleated RBC % % 0 Absolute Neutrophils (1.2-6.7) 10^3/uL 4.99 Absolute Lymphocytes (1.2-3.4) 10^3/uL 3.78 H Absolute Monocytes (0.1-0.8) 10^3/uL 0.65 Absolute Eosinophils (0.0-0.7) 10^3/uL 0.68 Absolute Basophils (0.0-0.2) 10^3/uL 0.10 ESR (0-20) mm/hr 8 Sodium (136-145) mmol/L 140 Potassium (3.5-5.1) mmol/L 3.4 L Chloride (98-107) mmol/L 105 Carbon Dioxide (21.0-32.0) mmol/L 25.8 Anion Gap (3-11) mmol/L 9.2 BUN (7-18) mg/dL 7 Creatinine (0.55-1.02) mg/dL 0.9 Estimated GFR/1.73 m2 (mL/min/1.73m2) >= 60.00 Glucose (74-106) mg/dL 104 Calcium (8.5-10.1) mg/dL 8.4 L Magnesium (1.8-2.4) mg/dL 1.9 Total Bilirubin (0.2-1.0) mg/dL 0.2 AST (15-37) U/L 12 L ALT (14-59) U/L 23 Alkaline Phosphatase (46-116) U/L 72 Troponin I (<0.06) ng/mL < 0.05 C-Reactive Protein (0.0-0.3) mg/dL 0.27 Total Protein (6.4-8.2) g/dL 6.6 Albumin (3.4-5.0) g/dL 3.5 Serum HCG, Qual Range/Units 01/22/ 16:22 WBC (4.4-10.8) 10^3/uL RBC (3.93-5.22) 10^6/uL Hgb (11.2-15.7) g/dL Hct (36.0-46.0) % MCV (80-95) fL MCH (27.0-33.0) pg MCHC (32.0-36.0) % RDW (11.7-14.6) % Plt Count (130-400) 10^3/uL MPV (8.0-11.0) fL Immature Gran % Neutrophils % Lymphocytes % Monocytes % Eosinophils % Basophils % Nucleated RBC % % Absolute Neutrophils (1.2-6.7) 10^3/uL Absolute Lymphocytes (1.2-3.4) 10^3/uL Absolute Monocytes (0.1-0.8) 10^3/uL Absolute Eosinophils (0.0-0.7) 10^3/uL Absolute Basophils (0.0-0.2) 10^3/uL ESR (0-20) mm/hr Sodium (136-145) mmol/L Potassium (3.5-5.1) mmol/L Chloride (98-107) mmol/L Carbon Dioxide (21.0-32.0) mmol/L Anion Gap (3-11) mmol/L BUN (7-18) mg/dL Creatinine (0.55-1.02) mg/dL Estimated GFR/1.73 m2 (mL/min/1.73m2) Glucose (74-106) mg/dL Calcium (8.5-10.1) mg/dL Magnesium (1.8-2.4) mg/dL Total Bilirubin (0.2-1.0) mg/dL AST (15-37) U/L ALT (14-59) U/L Alkaline Phosphatase (46-116) U/L Troponin I (<0.06) ng/mL C-Reactive Protein (0.0-0.3) mg/dL Total Protein (6.4-8.2) g/dL Albumin (3.4-5.0) g/dL Serum HCG, Qual Negative HPI General Mode of arrival: ambulatory. Date/Time Provider Initiated Documentation: 01/22/21 16:17. Limitations to Documentation: no limitations. Information obtained by: patient. HPI Narrative: Patient is a 40-year-old female with a history of right ophthalmic artery aneurysm presents for a brief episode of right-sided temporal headache within the past hour now with posterior headache, dizziness, nausea and right-sided facial tingling. 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 She denies any right-sided headache at present. She does admit to mild posterior occipital pressure of 5/10. She states she feels the right side of her face is tingly and numb. She admits to nausea but denies any vomiting. She states she had been feeling fine prior to onset of this headache. She denies any recent head injury, recent illness, fever, blurry vision, unilateral extremity numbness or weakness. Related Data Home Medications Medication Instructions Recorded Confirmed fluoxetine 20 mg PO DAILY 01/09/21 01/22/21 Allergies Allergy/AdvReac Type Severity Reaction Status Date / Time amoxicillin Allergy Severe Anaphylaxis Unverified 01/22/21 16:13 codeine Allergy Unverified 01/22/21 16:13 aspirin AdvReac Severe Anxiety, Unverified 01/22/21 16:13 sobbing NSAIDS (Non-Steroidal AdvReac GI Unverified 01/22/21 16:13 Anti-Inflamma General Stated Complaint: Headache BHANU: 2 Review of Systems All systems reviewed & are unremarkable except as noted in HPI and below Constitutional Constitutional: Reports as per HPI, Denies chills, Denies fever(s) and Reports headache(s) Eyes Eyes: Denies blurry vision ENT Ears, Nose, Mouth, and Throat: Denies dizziness, Reports headache(s), Denies sore throat and Denies throat swelling Cardiovascular Cardiovascular: Denies chest pain and Denies dyspnea Respiratory Respiratory: Denies cough and Denies dyspnea Gastrointestinal Gastrointestinal: Denies abdominal pain, Denies diarrhea, Reports nausea and Denies vomiting Genitourinary Genitourinary: Denies hematuria and Denies dysuria Musculoskeletal Musculoskeletal: Denies back pain and Denies numbness Integumentary/Breasts Skin/Breast: Denies lesions and Denies rash Neurologic Neurologic: Denies dizziness, Reports headache(s), Denies localized weakness and Denies numbness Allergic/Immunologic Allergic/Immunologic: Denies throat swelling [facility], [facility] Medical History Anxiety Asthma Depression Surgical History H/O laparoscopy Social History Smoking/Tobacco Use Status: Current every day Tobacco Type: cigarettes Smoking risk assessment performed?: Yes Alcohol Intake: never Drug use: Never Substance use type: does not use Do you feel safe at home: Yes Do you feel safe in your relationship?: Yes Exam Const General: cooperative, uncomfortable and no acute distress Orientation: alert, awake and oriented x3 HENMT Head: normal to inspection, normocephalic, atraumatic, no contusions, no scalp tenderness and no temporal artery tenderness Ears: hearing grossly normal bilaterally, external ears normal and TM's normal bilaterally General nose exam: external nose normal Face and sinus: normal facial exam Mouth: oral mucosae normal Throat: posterior oropharynx normal Eyes General: appearance normal, both eyes and all related structures Pupils: PERRL EOM: EOM intact bilaterally Neck Neck: normal visual inspection and No submandibular swelling Lymphatic: no lymphadenopathy noted Chest Chest: normal inspection of the chest and no tenderness Resp Effort & Inspection: normal respiratory effort and able to speak in complete sentences Auscultation: clear to auscultation bilaterally Cardio Rate: regular rate Rhythm: regular rhythm GI Inspection: normal to inspection Palpation: soft, not firm, not rigid and nontender Auscultation: normal bowel sounds Skin General skin exam: no rashes or lesions noted Neuro General: patient alert, patient awake, patient oriented x3, gait normal, moves all extremities, no meningeal signs and no focal motor deficits Cognition: normal cognition Speech: speech normal Motor: muscle tone normal throughout, strength 5/5 throughout and no pronator drift Sensory Exam: no sensory deficits noted Extrem General: normal to inspection, full ROM, capillary refill normal, no calf tenderness bilaterally and no edema Psych Appearance: grossly normal Mental Status: mental status grossly normal Speech and Movement: speech and movement normal Affect: normal affect Course Vital Signs Vital signs: Vital Signs Temperature 98.1 F 01/22/21 16:09 Pulse 88 01/22/21 16:09 Respiratory Rate 16 01/22/21 16:09 Blood Pressure 123/54 L 01/22/21 16:09 Pulse Oximetry 98 01/22/21 16:09 Temperature 98.1 F 01/22/21 16:09 Temperature Source Skin 01/22/21 16:09 Pulse 88 01/22/21 16:09 Respiratory Rate 16 01/22/21 16:09 Respiratory Effort Non-Labored 01/22/21 16:09 Blood Pressure 123/54 L 01/22/21 16:09 Blood Pressure Position Supine 01/22/21 16:09 Pulse Oximetry 98 01/22/21 16:09 Oxygen Delivery Method Room Air 01/22/21 16:09 Oxygen Flow Rate 0 01/22/21 16:09 Pain Level 5 01/22/21 16:09
[2021-01-22 16:30] LABS: Abs Immature Grans 0.02 10^3/uL (0.0-0.06); Absolute Eosinophil Count 0.68 10^3/uL (0.0-0.7); Absolute Lymphocyte Count 3.78 10^3/uL (1.2-3.4); Absolute Monocyte Count 0.65 10^3/uL (0.1-0.8); Absolute Neutrophil Count 4.99 10^3/uL (1.2-6.7); Eosinophils % 6.7; HCT 38.1 % (36.0-46.0); HGB 13.2 g/dL (11.2-15.7); Immature Grans % 0.2; MCH 31.5 pg (27.0-33.0); MCHC 34.6 % (32.0-36.0); MCV 90.9 fL (80-95); MPV 9.2 fL (8.0-11.0); Monocytes % 6.4; Neutrophils % 48.7; Nucleated RBC 0 %; Platelet Count 268 10^3/uL (130-400); RBC 4.19 10^6/uL (3.93-5.22); RDW 11.9 % (11.7-14.6); WBC 10.22 10^3/uL (4.4-10.8)
[2021-01-22 16:34] LABS: ESR 8 mm/hr (0-20)
--- NOTE | 2021-01-22 16:45 | DI.CT_ITS ---
Exam(s) CT BRAIN NECK CTA EXAM: CT BRAIN NECK CTA CLINICAL HISTORY: headache, nausea, r/o cva. TECHNIQUE: Imaging Protocol: Axial CT angiography was performed with multi-slice acquisition and mu lti-planar and/or 3D reconstructions. CONTRAST MATERIAL: Intravenous: Omnipaque 350 Contrast volume:structured data in ml COMPARISON: No exams were available for comparison FINDINGS: CTA Neck W: Aortic arch anatomy: The aortic arch anatomy is conventional. Anterior circulation: Both common carotid arteries ascend with normal luminal diameters. There is no significant atheroscl erotic disease at the carotid bifurcations and proximal internal carotid arteries. No stenosis at th david levels. Above this level internal carotid arteries are patent in both sides the neck although so mewhat tortuous prior to entering the skull base-carotid canals. Posterior circulation: Both vertebral arteries originated conventional fashion off the subclavian arteries and there is no s ignificant stenosis in the subclavian arteries proximal to the vertebral artery takeoff points. Both vertebral arteries are patent in the foramen transverse area, with the left vertebral artery being d ominant. Both vertebral arteries contribute to the formation of the basilar artery at the skull base . No evidence of thrombosis nor dissection of the vertebral arteries. CTA Brain W: Anterior circulation: Both internal carotid arteries are patent in the skull base-carotid canals as well as within the cave rnous sinuses. Supraclinoid aspects are patent. Middle cerebral arteries are patent. Both A1 segme nts are patent. Anterior cerebral arteries are patent. No evidence of aneurysm at the level of the anterior communicating artery. Posterior circulation: Both vertebral arteries contribute to the formation of the basilar artery at the skull base. The bas ilar artery is sends with satisfactory luminal diameter. Distally gives off superior cerebellar star santiago. Above this level gives off patent posterior cerebral artery. Left posterior cerebral artery i s thin proximally and receives inflow from posterior communicating artery on the left side of the cir [id number]. Is no evidence of aneurysm of the tip of the basilar artery nor elsewhere in the [id number]. CT BRAIN: There is no evidence of intracranial hemorrhage, mass effect, or shift of midline structures. There are no extra-axial fluid collections. Ventricles are not enlarged or shifted and there is no blood w ithin the ventricular system nor within the basal cisterns. There are no ring enhancing lesions in t he brain and no abnormal meningeal enhancement. IMPRESSION: 1. No significant atherosclerotic disease in the carotid arteries is the neck. Left vertebral artery is dominant. Both vertebral arteries are patent and both vertebral arteries contribute to the forma tion of the basilar artery at the skull base. 2. Intracranial arteries are patent. No obvious intraluminal thrombus nor obvious cut off sign. No aneurysms evident 3. No ring enhancing lesions in the brain nor abnormal meningeal enhancement. RADIATION DOSE DELIVERED: 2,141.22mGy.cm Total DLP DATA REPOSITORY: All CT scans at this facility are submitted to the National Radiology Data Registry (NRDR) Dose Index Registry (DIR) with the [employer] (ACR). RADIATION OPTIMIZATION: All CT scans at this facility use at least one of these dose optimization te chniques: automated exposure control; mA and/or kV adjustment per patient size (includes targeted exa ms where dose is matched to clinical indication); or iterative reconstruction.
[2021-01-22 16:46] LABS: ALT 23 U/L (14-59); AST 12 U/L (15-37); Albumin 3.5 g/dL (3.4-5.0); Alkaline Phosphatase 72 U/L (46-116); Anion Gap 9.2 mmol/L (3-11); BUN 7 mg/dL (7-18); Bilirubin, Total 0.2 mg/dL (0.2-1.0); C-Reactive Protein 0.27 mg/dL (0.0-0.3); CO2 25.8 mmol/L (21.0-32.0); CREATININE 0.9 mg/dL (0.55-1.02); Calcium 8.4 mg/dL (8.5-10.1); Chloride 105 mmol/L (98-107); Glucose 104 mg/dL (74-106); Magnesium 1.9 mg/dL (1.8-2.4); Potassium 3.4 mmol/L (3.5-5.1); Sodium 140 mmol/L (136-145); Total Protein 6.6 g/dL (6.4-8.2)
[2021-01-22 16:47] LABS: Troponin I < 0.05 ng/mL (<0.06)
[2021-01-22] MEDS: Prochlorperazine 10 MG/2 ML VIAL IVP (17:05)
[2021-01-22] MEDS: Dexamethasone 10 MG/ML VIAL IVP (17:05)
[2021-01-22 17:15] LABS: HCG Qual (Serum) Negative
[2021-01-22] MEDS: Omnipaque 350 MG/ML 100 ML BTL IJ (17:26)
[2021-01-22] MEDS: Normal Saline Flush 10 ML SYR IVP (17:26)
[2021-01-22] MEDS: ACETAMINOPHEN 1,000 MG/100 ML BTL 400 MG IVPB (17:52)
[2021-01-22] MEDS: Normal Saline 1,000 ML 1000 ML IV (17:52)
--- NOTE | 2021-01-22 17:59 | DI.VRAD_ITS ---
PROCEDURE INFORMATION: Exam: CT Angiography Head With Contrast, Arteriography Exam date and time: 01/22/2021 4:50 PM Age: 40 years old Clinical indication: Pain; Headache TECHNIQUE: Imaging protocol: Computed tomography angiography of the head with contrast. Exam focused on the arteries. 3D rendering (Not supervised by radiologist): MIP and/or 3D reconstructed images were created by the technologist. COMPARISON: US soft tissue head or neck 12/23/2018 11:38 AM FINDINGS: ANTERIOR CIRCULATION: Right internal carotid artery: Intracranial segment is patent with no significant stenosis. No aneurysm. Right middle cerebral artery: No occlusion or significant stenosis. No aneurysm. Right anterior cerebral artery: No occlusion or significant stenosis. No aneurysm. Left internal carotid artery: Intracranial segment is patent with no significant stenosis. No aneurysm. Left middle cerebral artery: No occlusion or significant stenosis. No aneurysm. Left anterior cerebral artery: No occlusion or significant stenosis. No aneurysm. POSTERIOR CIRCULATION: Right vertebral artery: The intradural right vertebral artery is mildly hypoplastic which is a normal variation. No occlusion or significant stenosis. No aneurysm. Left vertebral artery: No occlusion or significant stenosis. No aneurysm. Basilar artery: No occlusion or significant stenosis. No aneurysm. Right posterior cerebral artery: No occlusion or significant stenosis. No aneurysm. Left posterior cerebral artery: P1 segment of the left posterior cerebral artery is hypoplastic which is a normal variation. Remaining branches of left posterior cerebral arteries are within normal limits. Brain: Briggs-white matter differentiation is normal. There is no mass effect or midline shift. There is no intra-axial hemorrhage. There is no extra-axial fluid collection. Cerebral ventricles: Ventricles, sulci and basal cisterns are within normal limits. Pituitary gland and sella: There is partial empty sella. Bones/joints: Unremarkable. No acute fracture. Soft tissues: Unremarkable. Paranasal sinuses: There is mucous retention cyst or polyp in the posterior cell of the left anterior ethmoidal air cells. IMPRESSION: 1. No acute intracranial abnormality. 2. No major vessel cut off or high-grade stenosis in the arteries of the [id number]. 3. No intracranial aneurysm identified. PROCEDURE INFORMATION: Exam: CT Angiography Neck With Contrast Exam date and time: 01/22/2021 4:50 PM Age: 40 years old Clinical indication: Pain; Headache TECHNIQUE: Imaging protocol: Computed tomography angiography of the neck with contrast. 3D rendering (Not supervised by radiologist): MIP and/or 3D reconstructed images were created by the technologist. COMPARISON: US soft tissue head or neck 12/23/2018 11:38 AM FINDINGS: Right common carotid artery: No stenosis. No dissection or occlusion. Right internal carotid artery: No stenosis of the extracranial segment. No dissection or occlusion. Right external carotid artery: No occlusion or stenosis of the origin. Left common carotid artery: No stenosis. No dissection or occlusion. Left internal carotid artery: No stenosis of the extracranial segment. No dissection or occlusion. Left external carotid artery: No occlusion or stenosis of the origin. Right vertebral artery: No stenosis. No dissection or occlusion. Left vertebral artery: Left vertebral artery is dominant. Cerebral ventricles: Mild prominence of the bilateral laryngeal ventricles noted. Thyroid: There is 6 mm nodule in the left lobe of the thyroid gland. Additional 7 mm nodule suspected in the right lobe. Correlate with the ultrasound of the thyroid gland. Soft tissues: Normal. No significant soft tissue swelling. Bones/joints: No acute fracture. IMPRESSION: No stenosis or occlusion in the internal carotid or vertebral arteries. REFERENCES: NASCET CRITERIA. The degree of internal carotid artery stenosis is based on NASCET criteria. Normal is no stenosis. Mild is less than 50% stenosis. Moderate is 50-69% stenosis. Severe is 70% to 99% stenosis. Total occlusion is no detectable patent lumen. Dictated and Authenticated by: Bjorn Cochran MD. Ordering:VALERIE Walsh MD
[2021-01-22 18:45] VITALS: BP 101/67; PULSE 64; TEMP 36.6; O2SAT 96
[2021-01-22 19:13] VITALS: BP 106/48; PULSE 54; RESP 16; O2SAT 97
[2021-01-22] MEDS: Prochlorperazine 10 MG TAB 30 MG PO (19:13)
== END 2021-01-22 19:20 | disposition home or self-care (01) ==
PROVIDERS: Emergency Provider Physician Assistant; PCP Nurse Practitioner Family
DX: R51.9 Headache, unspecified (principal); I72.8 Aneurysm of other specified arteries; R11.0 Nausea
CPT/HCPCS: 36415; 70496; 70498; 80053; 85652; 96361; 96365; 96375; 99285; 83735; 84484; 84703; 85025; 86140; 99284; J0131; J0780; J1100; J3490

== ENCOUNTER 2021-01-26 02:29 | Outpatient (RCR) | payer MEDICARE, MEDICAID, SELFPAY | END 2021-01-31 23:59 | disposition home or self-care (01) | LOC: INF 02:29 | PROVIDERS: PCP Nurse Practitioner Family; Visit Provider Physician Assistant | DX: Z20.3 Contact with and (suspected) exposure to rabies (principal); Z23 Encounter for immunization | CPT/HCPCS: 90471; 96372; 90675 ==

== ENCOUNTER 2021-01-31 01:59 | Outpatient (CLI) | payer MEDICARE, MEDICAID, SELFPAY ==
--- NOTE | 2021-01-31 | DI.US_ITS ---
Exam(s) US THYROID EXAM: US THYROID CLINICAL HISTORY: THYROID NODULE, E04.1. TECHNIQUE: Ultrasound thyroid performed using standard protocol. COMPARISON: US US thyroid from 12/25/2018 FINDINGS: ISTHMUS: 3 mm RIGHT LOBE: Size: 5.7 cc by 1.6 AP by 1.8 transverse cm Echogenicity: Normal. Vascularity: Normal. Nodules: There are multiple subcentimeter nodules in the right lobe of the thyroid gland. The larges t nodule measures 0.8 AP by 0.8 transverse by 1.2 cm craniocaudad. It is of mixed echogenicity and i s isoechoic. The margins are well-defined and contains a few echogenic foci. This is consistent wit h a TI-RADS level 4 nodule. LEFT LOBE: Size: 4.9 cc by 1.8 AP by 1.8 transverse cm Echogenicity: Normal. Vascularity: Normal. Nodules: There are multiple subcentimeter nodules in the left lobe of the thyroid gland. In the mid lobe there is a 0.6 AP by 0.8 transverse by 1.1 craniocaudad mixed composition nodule which is hypoec hoic. It has smooth margins and no internal echogenic foci. It is consistent with a TI-RADS level 3 nodule. Inferiorly, there is a 0.7 AP by 1.0 transverse by 1.1 craniocaudad nodule. This is a solid nodule which is isoechoic. There are internal echogenic foci noted. This is consistent with a TI-R ADS level 4 nodule. OTHER FINDINGS: Sonographically benign-appearing lymph are seen in the neck. IMPRESSION: Multinodular thyroid gland. DATA REPOSITORY:
== END 2021-01-31 02:19 ==
PROVIDERS: PCP Nurse Practitioner Family; Visit Provider Nurse Practitioner Family
DX: E04.2 Nontoxic multinodular goiter (principal)
CPT/HCPCS: 76536

== ENCOUNTER 2021-03-29 16:42 | Outpatient (REF) | payer MEDICARE, MEDICAID, SELFPAY ==
[2021-03-31 10:27] LABS: COVID-19 RT-PCR UVMMC Result Negative (Negative)
== END 2021-03-29 16:43 | disposition home or self-care (01) ==
LOC: NCHCN 16:42
PROVIDERS: PCP Nurse Practitioner Family; Visit Provider Nurse Practitioner Family
DX: Z20.822 Contact with and (suspected) exposure to COVID-19 (principal); J06.9 Acute upper respiratory infection, unspecified
CPT/HCPCS: U0003

== ENCOUNTER 2021-05-12 08:07 | Emergency (ER) | payer MEDICARE, MEDICAID, SELFPAY ==
[2021-05-12 08:32] VITALS: BP 109/68; PULSE 69; RESP 18; TEMP 36.9; O2SAT 96
--- NOTE | 2021-05-12 09:18 | ED.GENADUL_ITS ---
Discharge Plan Disposition Patient Disposition: HOME Condition: Stable Discharge Details Clinical Impression: Bronchitis, COVID-19 Primary Care Provider: Lashawn Mcnally ED Provider: Carlos Vaughn Home Meds and New Rx's Prescriptions: New benzonatate 200 mg capsule 200 mg PO TID PRN (Reason: cough) Qty: 30 RF: 0 prednisone 20 mg tablet 40 mg PO DAILY Qty: 8 RF: 0 Continued fluoxetine 20 mg capsule 20 mg PO DAILY RF: 0 Discharge Instructions Instructions: Acute Bronchitis (ED), Viral Syndrome (ED) Additional Instructions: Continue to monitor as discussed. If fever(100) free for 24 hours and symptoms improving patient may be released from [facility] given that it has been more than 10 days of illness. Follow up with PCP if not improving in the next 3-7 days and take meds as prescribed. Discharge Data Discharge Date/Time-TO BE ENTERED AT DEPARTURE: 05/12/21 09:40 Medical Decision Making Pt stable with normal exam beyond fatigue and mildly ill appearance. Suspect Continued Covid recovery and possible early Bronchitis due to Smoking history. plan for steroids and cough med and pt to monitor symptoms. Reassured patient about typical Covid recovery and symptoms to watch out for that would require return. HPI General Mode of arrival: ambulatory . Date/Time Provider Initiated Documentation: 05/12/21 08:09 . Limitations to Documentation: no limitations . Information obtained by: patient . History of Present Illness 40 year old F presents to the emergency department with the chief complaint of Cough, fatigue and chest thightness, described as moderate, with intensity rated at 7. Quality is described as dull, Patient reports no radiation. Patient started experiencing this day(s) (12) and it has been constant. No relieving factors improve symptom(s), Patient notes weakness. Related Data Home Medications Medication Instructions Recorded Confirmed fluoxetine 20 mg PO DAILY 01/09/21 05/12/21 benzonatate 200 mg PO TID PRN #30 cap 05/12/21 prednisone 40 mg PO DAILY #8 tab 05/12/21 Previous Rx's Medication Instructions Recorded benzonatate 200 mg PO TID PRN #30 cap 05/12/21 prednisone 40 mg PO DAILY #8 tab 05/12/21 Allergies Allergy/AdvReac Type Severity Reaction Status Date / Time amoxicillin Allergy Severe Anaphylaxis Unverified 05/12/21 08:41 codeine Allergy Unverified 05/12/21 08:41 aspirin AdvReac Severe Anxiety, Unverified 05/12/21 08:41 sobbing NSAIDS (Non-Steroidal AdvReac GI Unverified 05/12/21 08:41 Anti-Inflamma General Stated Complaint: GenMedical BHANU: 3 Review of Systems Constitutional Constitutional: Reports body ache(s), Denies fever(s), Reports lethargy, Reports malaise and Reports weakness ENT Ears, Nose, Mouth, and Throat: Denies ear discharge, Denies otalgia, Reports nasal congestion, Reports nasal discharge and Denies neck pain Cardiovascular Cardiovascular: Denies chest pain and Denies dyspnea Respiratory Respiratory: Reports cough, Reports pain with cough and Denies dyspnea Musculoskeletal Musculoskeletal: Denies joint swelling and Denies neck pain Integumentary/Breasts Skin/Breast: Denies rash Neurologic Neurologic: Reports weakness PFSH All Active Problems Tick bite (Acute) Exposure to bat without known bite (Acute) Encounter for prophylactic rabies immune globin (Acute) Headache (Acute) Bronchitis (Acute) COVID-19 (Acute) Muscular deconditioning (Acute) Retrocalcaneal bursitis (Acute) Achilles tendinitis, left leg (Chronic) Medical History Anxiety Asthma Depression Surgical History H/O laparoscopy Social History Smoking/Tobacco Use Status: Current every day Tobacco Type: cigarettes Smoking risk assessment performed?: Yes Alcohol Intake: never Drug use: Never Substance use type: does not use Do you feel safe at home: Yes Do you feel safe in your relationship?: Yes Exam Const General: cooperative, comfortable, no acute distress, anxious, disheveled and ill appearing (mild) acutely Orientation: alert and awake [facility] Head: normal to inspection, normocephalic and atraumatic Ears: hearing grossly normal bilaterally and TM's normal bilaterally General nose exam: external nose normal and nasal discharge clear Face and sinus: no erythema Mouth: oral mucosae normal, no drooling, no muffled voice and no trismus Throat: posterior oropharynx normal Neck Neck: normal visual inspection, full ROM, no lymphadenopathy, no meningeal signs, trachea midline and supple Resp Effort & Inspection: normal respiratory effort, able to speak in complete sentences, no cough and not labored Auscultation: clear to auscultation bilaterally Cardio Rate: regular rate Rhythm: regular rhythm Heart Sounds: S1 normal, S2 normal, normal S1 and S2, no click, no gallops, no murmurs and no rubs Skin General skin exam: no rashes or lesions noted and dry skin (warm) Neuro General: patient alert, patient awake, patient oriented x3, gait normal and moves all extremities Cognition: normal cognition Speech: speech normal Course Vital Signs Vital signs: Vital Signs Temperature 36.9 C 05/12/21 08:32 Pulse 69 05/12/21 08:32 Respiratory Rate 18 05/12/21 08:32 Blood Pressure 109/68 05/12/21 08:32 Pulse Oximetry 96 05/12/21 08:32 Temperature 36.9 C 05/12/21 08:32 Temperature Source Temporal Artery Scan 05/12/21 08:32 Pulse 69 05/12/21 08:32 Respiratory Rate 18 05/12/21 08:32 Blood Pressure 109/68 05/12/21 08:32 Blood Pressure Position Sitting 05/12/21 08:32 Pulse Oximetry 96 05/12/21 08:32 Oxygen Delivery Method Room Air 05/12/21 08:32 Oxygen Flow Rate 0 05/12/21 08:32
== END 2021-05-12 09:40 | disposition home or self-care (01) ==
PROVIDERS: Emergency Provider Nurse Practitioner Family; PCP Nurse Practitioner Family
DX: U07.1 COVID-19 (principal); J20.9 Acute bronchitis, unspecified; F17.210 Nicotine dependence, cigarettes, uncomplicated
CPT/HCPCS: 99283

== ENCOUNTER 2021-08-14 02:25 | Outpatient (CLI) | payer MEDICARE, MEDICAID, SELFPAY ==
[2021-08-14 10:48] LABS: BUN 10 mg/dL (7-18); CREATININE 0.7 mg/dL (0.55-1.02); Calcium 8.8 mg/dL (8.5-10.1); Chloride 104 mmol/L (98-107); Glucose 86 mg/dL (74-106); Potassium 4.2 mmol/L (3.5-5.1); Sodium 139 mmol/L (136-145); TSH (W/Ref FT4) 1.02 uIU/mL (0.36-3.74)
[2021-08-15 09:31] LABS: HIV-1/2 Ag & Ab Screen Negative (Negative)
[2021-08-15 10:03] LABS: Hepatitis C Ab w Rflx HCV PCR Negative (Negative)
== END 2021-08-14 02:26 | disposition home or self-care (01) ==
LOC: LBO 02:26
PROVIDERS: PCP Family Medicine; Visit Provider Family Medicine
DX: E04.2 Nontoxic multinodular goiter (principal); Z11.59 Encounter for screening for other viral diseases; Z13.6 Encounter for screening for cardiovascular disorders; U07.1 COVID-19; Z11.4 Encounter for screening for human immunodeficiency virus [HIV]
CPT/HCPCS: 36415; 80048; 80061; 86803; 87389; 84443

== ENCOUNTER 2021-10-26 03:12 | Outpatient (CLI) | payer MEDICARE, MEDICAID, SELFPAY ==
[2021-10-26 13:47] LABS: Magnesium 1.8 mg/dL (1.8-2.4)
[2021-10-26 22:02] LABS: CRP, High Sensitivity 1.64 mg/L (See Note); Rheumatoid Factor <8.6 IU/mL (<12.0)
[2021-10-27 14:16] LABS: ANA Interpretation Negative (Negative)
== END 2021-10-26 03:13 | disposition home or self-care (01) ==
LOC: LBO 03:12
DX: M25.50 Pain in unspecified joint (principal); M79.7 Fibromyalgia; R29.2 Abnormal reflex; F41.8 Other specified anxiety disorders
CPT/HCPCS: 36415; 86141; 83735; 86038; 86431

== ENCOUNTER 2021-12-12 02:54 | Outpatient (CLI) | payer MEDICARE, MEDICAID, SELFPAY | END 2021-12-12 02:55 | disposition home or self-care (01) | LOC: LBO 02:55 ==

== ENCOUNTER 2022-01-10 10:26 | Outpatient (CLI) | payer MEDICARE, MEDICAID, SELFPAY ==
[2022-01-10 08:14] LABS: Calculated LDL 86 mg/dL (<100); Cholesterol 157 mg/dL (<200); HDL Cholesterol 52 mg/dL (40-60); Triglyceride 99 mg/dL (<150)
== END 2022-01-10 10:27 | disposition home or self-care (01) ==
LOC: LBO 01-15 10:26
PROVIDERS: Family Medicine
DX: E04.2 Nontoxic multinodular goiter (principal); Z11.59 Encounter for screening for other viral diseases; Z13.6 Encounter for screening for cardiovascular disorders
CPT/HCPCS: 36415; 80061

== ENCOUNTER 2022-06-19 11:37 | Outpatient (REF) | payer MEDICARE, MEDICAID, SELFPAY ==
[2022-06-19 17:13] LABS: TSH 1.13 uIU/mL (0.36-3.74)
[2022-06-19 22:22] LABS: T3, Total 160 ng/dL (97-169)
== END 2022-06-19 11:38 | disposition home or self-care (01) ==
LOC: NCHCN 11:37
PROVIDERS: Visit Provider Physician Assistant Medical
DX: E04.1 Nontoxic single thyroid nodule (principal)
CPT/HCPCS: 84439; 84443; 84480

== ENCOUNTER 2022-06-29 11:56 | Emergency (ER) | payer MEDICARE, MEDICAID, SELFPAY ==
--- NOTE | 2022-06-29 12:00 | DI.RAD_ITS ---
Exam(s) XR KNEE LT 4V+ EXAM: XR KNEE LT 4V+ CLINICAL HISTORY: pain. TECHNIQUE: 2D digital imaging was performed of the left knee. Four images were obtained. Merchant, AP, lateral and PA tunnel views were obtained. COMPARISON: No exams were available for comparison FINDINGS: BONES: No acute fracture is present. No bony destructive lesion is seen. JOINTS: The knee is normally aligned. No joint effusion is seen. SOFT TISSUE: Normal. IMPRESSION: Normal radiographs of the left knee. DATA REPOSITORY: RADIATION DOSE DELIVERED:
[2022-06-29 12:03] VITALS: BP 106/77; PULSE 74; RESP 18; TEMP 36.8; O2SAT 97
--- NOTE | 2022-06-29 13:10 | W.ED.GENAD ---
Discharge Plan Disposition Patient Disposition: Home Condition: Stable Discharge Details Clinical Impression: Left knee pain Primary Care Provider: Baron Hobson ED Provider: Virgil Wright Home Meds and New Rx's Prescriptions: New methylprednisolone [Medrol (Sabas)] 4 mg tablets,dose pack See Rx Instructions .ROUTE .COMPLEX Qty: 21 0RF Rx Instructions: orally per package directions Continued fluoxetine 20 mg capsule 20 mg PO DAILY Qty: 90 3RF prednisone 20 mg tablet 40 mg PO DAILY Qty: 8 0RF albuterol sulfate [ProAir HFA] 90 mcg/actuation HFA aerosol inhaler 2 puff inhalation Q6H PRN (Reason: shortness of breath or wheezing) Qty: 6.7 0RF lorazepam 0.5 mg tablet 0.5 mg PO DAILY PRN (Reason: anxiety) Qty: 7 0RF epinephrine [EpiPen 2-Sabas] 0.3 mg/0.3 mL auto-injector 0.3 mg IM ONCE Rx Instructions: as a single dose; may repeat once sertraline 25 mg tablet 25 mg PO DAILY Label Comments: TAKE ONE TABLET BY MOUTH EVERY DAY melatonin 1 mg tablet 1 mg PO QHS PRN Discharge Instructions Instructions: Knee Pain (ED) Additional Instructions: X-ray is unremarkable. Given your NSAID allergy, a prescription of Medrol dose pack has been provided, take as directed. Unfortunately we do not have a hinged brace in the appropriate size so instead we opted for a long-leg immobilizer and crutches, use as directed, advance activity as tolerated. Rest, elevate, cool compresses every 2 hours for 20 minutes. Please watch for new or worsening symptoms and return to the ER for any concerns. Lastly, I would like you to follow-up with orthopedics in a week if symptoms not improving with conservative measures. Referrals: David Wallace MD [ [facility] STAFF PHYSICIAN] - Discharge Data Discharge Date/Time-TO BE ENTERED AT DEPARTURE: 06/29/22 14:30 Medical Decision Making 41-year-old female reports a stiff left knee for the past 4 or 5 days, used buot-iwo-vcjrjkk CBD oil and reports overall symptoms improved but now feels more distinct discomfort across the anterior-medial aspect of her knee. Pain is really not at rest, worse with movement or bearing weight. Knee appears stable. No concern for infection. Low suspicion for acute bony etiology as there is no trauma but will obtain screening x-ray. X-ray unremarkable. Emmanuel x-ray findings with patient. Patient would like a brace. Unfortunately we do not have any hinged brace that will fit her properly. Instead we will use a long-leg immobilizer, patient feels as though she would also like crutches with this. Crutches also supplied. Patient reports that she has an allergy to NSAIDs and has done well before with a Medrol Dosepak when she had a shoulder issue. We will also supply her a prescription for a Medrol Dosepak. We will provide her a referral to orthopedics. Standard discharge and return precautions were provided. Patient understands, is agreeable to this plan, and has no additional questions or concerns upon discharge. This documentation was generated using [employer] system, please disregard any oddities of phrase or misspellings. Medical Records Medical records reviewed: Yes I reviewed the patient's medical records. Imaging Data Radiologic Study: Attestation: I personally reviewed and interpreted this imaging study as follows: Imaging: X-Ray Radiologist's impression: Exam(s) XR KNEE LT 4V+ EXAM: XR KNEE LT 4V+ CLINICAL HISTORY: pain. TECHNIQUE: 2D digital imaging was performed of the left knee. Four images were obtained. Merchant,AP, lateral and PA tunnel views were obtained. COMPARISON: No exams were available for comparison FINDINGS: BONES: No acute fracture is present. No bony destructive lesion is seen. JOINTS: The knee is normally aligned. No joint effusion is seen. SOFT TISSUE: Normal. IMPRESSION: Normal radiographs of the left knee. [facility] General Mode of arrival: ambulatory. Date/Time Provider Initiated Documentation: 06/29/22 12:09. Limitations to Documentation: no limitations. Information obtained by: patient. History of Present Illness 41 year old F presents to the emergency department with the chief complaint of L knee pain, described as moderate, with intensity rated at 6. Quality is described as aching, and is localized to the left and lower extremity. Patient reports no radiation. Patient started experiencing this day(s) (5) and it has been constant. Immobilization improves symptom(s), Movement worsens symptoms . Patient notes no other symptoms.. Patient did receive the following treatments prior to arrival, none Related Data Home Medications Medication Instructions Recorded Confirmed epinephrine 0.3 mg/0.3 mL 0.3 mg IM ONCE 07/25/21 06/29/22 injection, auto-injector (EpiPen 2-Sabas) fluoxetine 20 mg capsule 20 mg PO DAILY #90 caps 08/02/21 10/14/21 albuterol sulfate 90 mcg/actuation 2 puff inhalation Q6H PRN 10/14/21 06/29/22 aerosol inhaler (ProAir HFA) shortness of breath or wheezing #6.7 grams prednisone 20 mg tablet 40 mg PO DAILY COVID #8 tabs 10/14/21 10/14/21 lorazepam 0.5 mg tablet 0.5 mg PO DAILY PRN anxiety #7 tabs 10/16/21 06/29/22 melatonin 1 mg tablet 1 mg PO QHS PRN 06/29/22 06/29/22 methylprednisolone 4 mg tablets in See Rx Instructions PO .COMPLEX 06/29/22 a dose pack (Roverrol (3dplusme)) #21 dose pk sertraline 25 mg tablet 25 mg PO DAILY 06/29/22 06/29/22 Previous Rx's Medication Instructions Recorded fluoxetine 20 mg capsule 20 mg PO DAILY #90 caps 08/02/21 albuterol sulfate 90 mcg/actuation 2 puff inhalation Q6H PRN 10/14/21 aerosol inhaler (ProAir HFA) shortness of breath or wheezing #6.7 grams prednisone 20 mg tablet 40 mg PO DAILY COVID #8 tabs 10/14/21 lorazepam 0.5 mg tablet 0.5 mg PO DAILY PRN anxiety #7 tabs 10/16/21 methylprednisolone 4 mg tablets in See Rx Instructions PO .COMPLEX 06/29/22 a dose pack (Medrol (3dplusme)) #21 dose pk Allergies Allergy/AdvReac Type Severity Reaction Status Date / Time amoxicillin Allergy Severe Anaphylaxis Unverified 06/29/22 12:06 varenicline [From Chantix] Allergy Severe Unverified 06/29/22 12:06 bupropion [From Wellbutrin] Allergy Intermediate Unverified 06/29/22 12:06 codeine Allergy Unverified 06/29/22 12:06 aspirin AdvReac Severe Anxiety, Unverified 06/29/22 12:06 sobbing NSAIDS (Non-Steroidal AdvReac GI Unverified 06/29/22 12:06 Anti-Inflamma General Stated Complaint: Orthopedic BHANU: 4 Review of Systems Constitutional Constitutional: Denies fever(s) and Denies weakness Cardiovascular Cardiovascular: Denies chest pain and Denies dyspnea Respiratory Respiratory: Denies dyspnea Musculoskeletal Musculoskeletal: Reports arthralgias, Denies joint swelling, Denies numbness, Reports stiffness and Denies tingling Integumentary/Breasts Skin/Breast: Denies rash Neurologic Neurologic: Denies numbness, Denies tingling and Denies weakness PFSH All Active Problems (Updated 06/29/22 @ 14:07 by HIEN Sainz) Left knee pain (Acute) Hyper-reflexia (Chronic) Arthralgia (Acute) Brain aneurysm (Acute) 2019, 3 mm, right ophthalmic artery, 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 followed by [facility] endocrine - Depression with anxiety (Acute) 10/2021-be associated with panic attack Migraines (Chronic) TMJ dysfunction (Acute) PTSD (post-traumatic stress disorder) (Acute) Aneurysm (Acute) Exposure to bat without known bite (Acute) 2020-possible exposure to bat in house treated with rabies vaccine and immunoglobulin COVID-19 (Acute) 05/2021 URI/bronchitis 10/2021-URI symptoms but triggering anxiety Medical History Anxiety Asthma Breast abscess recurrent Cuboid fracture left Depression Supraumbilical hernia Surgical History H/O dilation and curettage (~07/22/09) H/O laparoscopy (~07/22/09) cholecystectomy History of excision of mass (~07/15/06) paratubal cysts, excision chronic mastitis right breast- 2015 History of hernia repair (~05/28/14) umbilical Tubal ligation status Family History Mother Depression Father , 55 Kidney problem Brother , 27 Depression Son Asthma Son No problems noted. Social History Smoking/Tobacco Use Status: Former Tobacco Use Quit status: considering quitting Second Hand Exposure: Yes Smoking risk assessment performed?: Yes Alcohol Intake: never Drug use: Never Substance use type: does not use Caregiver/Support person: No Household members: children Housing: apartment Do you need help understanding health information?: Never Pets and animals: Yes Pets and animals: cat(s) and hamster(s) Sexually active: No Do you think of yourself as: straight/heterosexual Current gender identity: female What is your relationship status?: never How often do you talk on the phone with friends or family?: decline to answer How often do you get together with friends or relatives?: decline to answer How often do you attend shinto or zoroastrian services?: decline to answer Do you belong to any clubs or organized social groups?: decline to answer Panel score (0-1 are the most socially isolated patients): 0 Seatbelt use: always Helmet use: Yes Helmet use: always Drive intox or ride w/intox special needs bus driver: No Do you feel safe at home: Yes Do you feel safe in your relationship?: Yes Exam Const General: cooperative, healthy appearing, comfortable and no acute distress Orientation: alert and awake [facility] Head: normal to inspection, normocephalic and atraumatic Eyes Conjunctivae: conjunctivae normal Neck Neck: normal visual inspection, full ROM, no meningeal signs, trachea midline and supple Resp Effort & Inspection: normal respiratory effort and able to speak in complete sentences Cardio Rate: regular rate Rhythm: regular rhythm Skin General skin exam: no rashes or lesions noted Neuro General: patient alert, patient awake, moves all extremities and no focal motor deficits Cognition: normal cognition Speech: speech normal Gait: antalgic Motor: muscle tone normal throughout Sensory Exam: no sensory deficits noted Extrem General: full ROM and capillary refill normal Other: Left knee with a normal visual inspection, no obvious swelling, erythema, ecchymosis. Skin is intact. Limited range of motion both extension and flexion secondary to pain. Knee is stable but there is increased discomfort with varus and valgus stress as well as diffuse anterior medial discomfort to palpation. Negative anterior draw sign. Calf unremarkable. Normal capillary refill and dorsalis pedal pulse. Psych Appearance: grossly normal Mental Status: mental status grossly normal Course Vital Signs Vital signs: Vital Signs Temperature 36.8 C 06/29/22 12:03 Pulse 74 06/29/22 12:03 Respiratory Rate 18 06/29/22 12:03 Blood Pressure 106/77 06/29/22 12:03 Pulse Oximetry 97 06/29/22 12:03 Temperature 36.8 C 06/29/22 12:03 Temperature Source Temporal Artery Scan 06/29/22 12:03 Pulse 74 06/29/22 12:03 Respiratory Rate 18 06/29/22 12:03 Respiratory Effort Non-Labored 06/29/22 12:08 Blood Pressure 106/77 06/29/22 12:03 Blood Pressure Position Sitting 06/29/22 12:03 Pulse Oximetry 97 06/29/22 12:03 Oxygen Delivery Method Room Air 06/29/22 12:03 Oxygen Flow Rate 0 06/29/22 12:03
--- NOTE | 2022-07-02 08:35 | NUR.NOTE ---
Nursing Note: Accessed chart for [facility] billing purposes.
== END 2022-06-29 14:30 | disposition home or self-care (01) ==
PROVIDERS: Emergency Provider Physician Assistant; PCP Physician Assistant Medical
DX: M25.562 Pain in left knee (principal); J45.909 Unspecified asthma, uncomplicated; Z79.52 Long term (current) use of systemic steroids
CPT/HCPCS: 99283; 73564; 99284

== ENCOUNTER → 2022-08-30 10:53 | Outpatient (BNVA) | payer MEDICARE, MEDICAID, SELFPAY | PROVIDERS: PCP Physician Assistant Medical; Referring Provider Physician Assistant Medical; Visit Provider Student in an Organized Health Care Education/Training Program | DX: M23.92 Unspecified internal derangement of left knee (principal) | CPT/HCPCS: 99213 ==

== ENCOUNTER 2022-09-19 02:10 | Outpatient (CLI) | payer MEDICARE, MEDICAID, SELFPAY ==
--- NOTE | 2022-09-19 06:45 | DI.MRI_ITS ---
Exam(s) MR LOWER JOINT LT WO EXAM: MR LOWER JOINT LT WO CLINICAL HISTORY: pain,internal derangement lt knee, m23.92. TECHNIQUE: Multiplanar multisequence MRI was performed. COMPARISON: CR XR KNEE LT 4V+ from 06/29/2022 FINDINGS: BONES: There is no fracture or contusion pattern. There is a small subchondral cyst in the anterior a spect of the medial tibial plateau. There is also mild edema seen in the inferior lateral aspect of the patella with thinning of the articular cartilage. JOINTS: Thinning of the articular cartilage in the lateral patellar facet. No effusion is present. TENDONS: Extensor mechanism: Unremarkable. Medial retinaculum: Unremarkable. Lateral retinaculum: Unremarkable. Popliteus: Unremarkable. MUSCLES: Unremarkable. MENISCI: The medial meniscus is unremarkable. The lateral meniscus is unremarkable. SOFT TISSUES: Unremarkable. LIGAMENTS: Anterior Cruciate: Unremarkable. Posterior Cruciate: Unremarkable. Medial Collateral:Unremarkable. Lateral Collateral: Unremarkable. OTHER: IMPRESSION: 1. There is no evidence of a meniscal or ligament tear. 2. Chondromalacia involving the lateral patella. 3. No evidence of a soft tissue mass. DATA REPOSITORY:
== END 2022-09-19 02:30 ==
LOC: DI 02:11
PROVIDERS: PCP Physician Assistant Medical; Visit Provider Student in an Organized Health Care Education/Training Program
DX: M23.92 Unspecified internal derangement of left knee (principal)
CPT/HCPCS: 73721

== ENCOUNTER 2022-09-29 15:19 | Emergency (ER) | payer MEDICARE, MEDICAID, SELFPAY ==
[2022-09-29 15:22] VITALS: BP 118/58; PULSE 76; RESP 16; TEMP 36.8; O2SAT 98
--- NOTE | 2022-09-29 15:45 | DI.RAD_ITS ---
Exam(s) XR KNEE LT 3V AP,LAT,PEPITO EXAM: XR KNEE LT 3V AP,LAT,PEPITO CLINICAL HISTORY: Pain, Swelling. TECHNIQUE: 2D digital imaging was performed of the left knee. Three images were obtained. AP, late ral and PA tunnel views were obtained. COMPARISON: CR XR KNEE LT 4V+ from 06/29/2022 FINDINGS: BONES: No acute fracture is present. No bony destructive lesion is seen. JOINTS: The knee is normally aligned. No joint effusion is seen. SOFT TISSUE: Normal. IMPRESSION: Normal radiographs of the left knee. DATA REPOSITORY: RADIATION DOSE DELIVERED:
--- NOTE | 2022-09-29 15:51 | ED.GENADUL_ITS ---
Discharge Plan Disposition Patient Disposition: Home Condition: Stable Discharge Details Clinical Impression: Knee pain, left Primary Care Provider: Baron Hobson ED Provider: Mariela Barnett Home Meds and New Rx's Prescriptions: Continued fluoxetine 20 mg capsule 20 mg PO DAILY Qty: 90 3RF Patient Comments: not taking albuterol sulfate [ProAir HFA] 90 mcg/actuation HFA aerosol inhaler 2 puff inhalation Q6H PRN (Reason: shortness of breath or wheezing) Qty: 6.7 0RF lknrkfh-vfij-gdhii-oreg-capryl 100 mg-150 mg- 50 mg-150 mg capsule PO cholecalciferol (vitamin D3) 25 mcg (1,000 unit) capsule 25 mcg PO DAILY multivitamin Tablet 1 tab PO DAILY lorazepam 0.5 mg tablet 0.5 mg PO DAILY PRN (Reason: anxiety) Qty: 7 0RF Patient Comments: not taking epinephrine [EpiPen 2-Sabas] 0.3 mg/0.3 mL auto-injector 0.3 mg IM ONCE Rx Instructions: as a single dose; may repeat once cyclobenzaprine 10 mg tablet 10 mg PO PRN PRN Patient Comments: TAKE ONE TABLET BY MOUTH THREE TIMES A DAY NEEDED FOR MUSCLE SPASM. USE SPARINGLY Discharge Instructions Instructions: Knee Pain (ED) Additional Instructions: No evidence of fluid or abnormality noted on the x-ray. Please keep your appointment with orthopedics as scheduled. The MRI shows no meniscus tear. Rest ice compression elevation. Please take Tylenol or Ibuprofen with food every 4-6 hours as needed for pain and swelling. Referrals: Baron Hobson PA [Primary Care Provider] - Return if symptoms worsen Discharge Data Discharge Date/Time-TO BE ENTERED AT DEPARTURE: 09/29/22 16:54 Medical Decision Making Discussed MRI results with patient who verbalized understanding. X-ray ordered to rule out effusion ice pack ordered. X-ray within normal limits no effusion. Patient has a splint that she was instructed to use. Instructed to continue with Tylenol ibuprofen and RICE procedures and keep her upcoming appointment. She verbalized understanding. This text was generated using [employer] system, please disregard any oddities of phrase or misspellings. HPI General Mode of arrival: ambulatory . Date/Time Provider Initiated Documentation: 09/29/22 15:30 . Limitations to Documentation: no limitations . Information obtained by: RN notes reviewed and old records reviewed . HPI Narrative: 42-year-old female presents to the ER with chief complaint of left knee pain and swelling which occurred after stretching this morning. She reports feeling warm liquid going across to her knee. She recently had an MRI about 10 days ago which showed no meniscal tear but some chondromalacia of the patella. She does have a brace and has an upcoming Ortho appointment on October 04. No significant deformity, swelling there is slight warmth noted to the prepatellar area. Distal CMS is intact. She does have a past medical history of obesity, brain aneurysm Gillette's palsy bronchitis, migraines PTSD Related Data Home Medications Medication Instructions Recorded Confirmed epinephrine 0.3 mg/0.3 mL 0.3 mg IM ONCE 07/25/21 09/29/22 injection, auto-injector (EpiPen 2-Sabas) fluoxetine 20 mg capsule 20 mg PO DAILY #90 caps 08/02/21 08/30/22 albuterol sulfate 90 mcg/actuation 2 puff inhalation Q6H PRN 10/14/21 09/29/22 aerosol inhaler (ProAir HFA) shortness of breath or wheezing #6.7 grams lorazepam 0.5 mg tablet 0.5 mg PO DAILY PRN anxiety #7 tabs 10/16/21 08/30/22 cholecalciferol (vitamin D3) 25 25 mcg PO DAILY 08/30/22 09/29/22 mcg (1,000 unit) capsule multivitamin 1 tab PO DAILY 08/30/22 09/29/22 tumeric 100 mg-germán 150 mg-olive cap PO 08/30/22 08/30/22 50 mg-oreg 150 mg-caprylate capsule cyclobenzaprine 10 mg tablet 10 mg PO PRN PRN 09/29/22 09/29/22 Previous Rx's Medication Instructions Recorded fluoxetine 20 mg capsule 20 mg PO DAILY #90 caps 08/02/21 albuterol sulfate 90 mcg/actuation 2 puff inhalation Q6H PRN 10/14/21 aerosol inhaler (ProAir HFA) shortness of breath or wheezing #6.7 grams lorazepam 0.5 mg tablet 0.5 mg PO DAILY PRN anxiety #7 tabs 10/16/21 Allergies Allergy/AdvReac Type Severity Reaction Status Date / Time amoxicillin Allergy Severe Anaphylaxis Unverified 08/30/22 10:55 varenicline [From Chantix] Allergy Severe Unverified 08/30/22 10:55 bupropion [From Wellbutrin] Allergy Intermediate Unverified 08/30/22 10:55 codeine Allergy Unverified 08/30/22 10:55 aspirin AdvReac Severe Anxiety, Unverified 08/30/22 10:55 sobbing NSAIDS (Non-Steroidal AdvReac GI Unverified 08/30/22 10:55 Anti-Inflamma General Stated Complaint: Orthopedic BHANU: 4 Review of Systems All systems reviewed & are unremarkable except as noted in HPI and below Musculoskeletal Musculoskeletal: Reports arthralgias and Reports joint swelling PFSH All Active Problems (Updated 09/29/22 @ 16:32 by Mariela Barnett NP) Knee pain, left (Acute) Internal derangement of left knee (Acute) Hyper-reflexia (Chronic) Arthralgia (Acute) Brain aneurysm (Acute) 2019, 3 mm, right ophthalmic artery, 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-no interval change as of 2021-followed yearly by neurosurgery at [facility]-observed, low risk current status Gillette's palsy (Acute) 2018-resolved Bronchitis with bronchospasm (Acute) Associated with HKH-AZSAR-eluzn apart from acute infection Personal history of nicotine dependence (Acute) 08/2021- 1/2 ppd, about 15 pk yr 08/2021-quit Multinodular thyroid (Acute) 2018- [facility] at [facility] followed by [facility] endocrine - Depression with anxiety (Acute) 10/2021-be associated with panic attack Migraines (Chronic) TMJ dysfunction (Acute) PTSD (post-traumatic stress disorder) (Acute) Aneurysm (Acute) Exposure to bat without known bite (Acute) 2020-possible exposure to bat in house treated with rabies vaccine and immunoglobulin COVID-19 (Acute) 05/2021 URI/bronchitis 10/2021-URI symptoms but triggering anxiety Medical History Anxiety Asthma Breast abscess recurrent Cuboid fracture left Depression Supraumbilical hernia Surgical History H/O dilation and curettage (~07/22/09) H/O laparoscopy (~07/22/09) cholecystectomy History of excision of mass (~07/15/06) paratubal cysts, excision chronic mastitis right breast- 2015 History of hernia repair (~05/28/14) umbilical Tubal ligation status Family History Mother Depression Father , 55 Kidney problem Brother , 27 Depression Son Asthma Son No problems noted. Social History Smoking/Tobacco Use Status: Former Tobacco Use Quit status: considering quitting Second Hand Exposure: Yes Smoking risk assessment performed?: Yes Alcohol Intake: never Drug use: Never Substance use type: does not use Caregiver/Support person: No Household members: children Housing: apartment Do you need help understanding health information?: Never Pets and animals: Yes Pets and animals: cat(s) and hamster(s) Sexually active: No Do you think of yourself as: straight/heterosexual Current gender identity: female What is your relationship status?: never How often do you talk on the phone with friends or family?: decline to answer How often do you get together with friends or relatives?: decline to answer How often do you attend yarsanism or scientology services?: decline to answer Do you belong to any clubs or organized social groups?: decline to answer Panel score (0-1 are the most socially isolated patients): 0 Seatbelt use: always Helmet use: Yes Helmet use: always Drive intox or ride w/intox driver guide: No Do you feel safe at home: Yes Do you feel safe in your relationship?: Yes Exam Extrem General: normal to inspection Right upper extremity: normal to inspection Left upper extremity: normal to inspection Left lower extremity: normal to inspection, normal capillary refill and knee Details: tenderness Location: of the medial joint line and warmth Course Vital Signs Vital signs: Vital Signs Temperature 36.8 C 09/29/22 15:22 Pulse 76 09/29/22 15:22 Respiratory Rate 16 09/29/22 15:22 Blood Pressure 118/58 L 09/29/22 15:22 Pulse Oximetry 98 09/29/22 15:22 Temperature 36.8 C 09/29/22 15:22 Temperature Source Skin 09/29/22 15:22 Pulse 76 09/29/22 15:22 Respiratory Rate 16 09/29/22 15:22 Respiratory Effort Normal 09/29/22 15:30 Blood Pressure 118/58 L 09/29/22 15:22 Blood Pressure Position Sitting 09/29/22 15:22 Pulse Oximetry 98 09/29/22 15:22 Oxygen Delivery Method Room Air 09/29/22 15:22 Oxygen Flow Rate 0 09/29/22 15:22 Pain Level 5 09/29/22 15:22 Comment takes tylenol and tumeric allergy to ibuprofen 09/29/22 15:22
--- NOTE | 2022-09-29 16:29 | DI.VRAD_ITS ---
PROCEDURE INFORMATION: Exam: XR Left Knee Exam date and time: 09/29/2022 4:05 PM Age: 42 years old Clinical indication: Pain; Knee; Left TECHNIQUE: Imaging protocol: Radiologic exam of the left knee. Views: 3 views. COMPARISON: MR LOWER JOINT LT WO 09/19/2022 9:29 AM FINDINGS: Bones/joints: Normal. Soft tissues: Normal. IMPRESSION: No evidence for acute abnormality. Dictated and Authenticated by: Maureen Rueda MD. Ordering:MARIA DEL ROSARIO Sierra MD
== END 2022-09-29 16:54 | disposition home or self-care (01) ==
PROVIDERS: Emergency Provider Registered Nurse Emergency; PCP Physician Assistant Medical
DX: M25.562 Pain in left knee (principal); J45.909 Unspecified asthma, uncomplicated
CPT/HCPCS: 73562; 99283

== ENCOUNTER → 2022-10-04 10:30 | Outpatient (BNVA) | payer MEDICARE, MEDICAID, SELFPAY | PROVIDERS: PCP Physician Assistant Medical; Referring Provider Physician Assistant Medical; Visit Provider Student in an Organized Health Care Education/Training Program | DX: M23.92 Unspecified internal derangement of left knee (principal) | CPT/HCPCS: 20610; J1030 ==

== ENCOUNTER 2022-10-10 14:52 | Outpatient (REF) | payer MEDICARE, MEDICAID, SELFPAY ==
--- NOTE | 2022-10-10 14:30 | PAPFT_PTH ---
PATIENT: Holly Mcnally LOC: [facility]#:[id number] AGE/SX: 42/F ROOM: RE10/10/[address]: Baron Hobson : 1980 BED: DIS: 10/10/2022 SPEC #: [id number] RECD: 10/11/22 13:00 STATUS: EMELY RENAE #: [id number] ANDREY: 10/10/22 14:[address]: Baron Hobson DEPT: [facility] Cytology RECD BY: Tania Falcon Tissues: 1 - CX/ENDOCX FOR PAP SMEARS Procedures: PAP THIN PREP/UVM Screening HPV DNA PROBE Comments: [id number]
== END 2022-10-10 14:53 | disposition home or self-care (01) ==
LOC: NCHCN 14:52
PROVIDERS: PCP Physician Assistant Medical; Visit Provider Physician Assistant Medical
DX: Z11.51 Encounter for screening for human papillomavirus (HPV) (principal); Z01.419 Encounter for gynecological examination (general) (routine) without abnormal findings
CPT/HCPCS: 88142; 87624

== ENCOUNTER 2022-10-15 01:40 | Outpatient (CLI) | payer MEDICARE, MEDICAID, SELFPAY ==
--- NOTE | 2022-10-15 | DI.MAMMO_ITS ---
Exam(s) MAMMO SCREENING EXAM: MAMMO SCREENING CLINICAL HISTORY: SCREENING,Z12.31 TECHNIQUE: Mammograms were interpreted according to the usual protocol including computer analysis w [employer] CAD system, tomosynthesis and C-view imaging. COMPARISON: No exams were available for comparison FINDINGS: The breasts are composed of scattered fibroglandular densities, Breast Density category B. No suspicious masses or suspicious microcalcifications are seen. No skin thickening or abnormal axillary lymph nodes are seen. IMPRESSION: BI-RADS Category 1, Negative mammogram Yearly screening mammography is recommended. Breast Density - Category B, scattered fibroglandular densities. A negative radiographic report should not delay biopsy if a dominant or clinically suspicious mass is present. Up to ten percent of cancers are not identified on mammography. A negative report may reinforce clinical impression. Adenosis and dense breasts may obscure an underlying neoplasm. False positive reports average 6 to 10%. Patient will receive a letter notifying them of these results.
== END 2022-10-15 02:00 ==
LOC: DI 01:42
PROVIDERS: PCP Physician Assistant Medical; Visit Provider Physician Assistant Medical
DX: Z12.31 Encounter for screening mammogram for malignant neoplasm of breast (principal)
CPT/HCPCS: 77063; 77067

== ENCOUNTER 2022-10-19 03:03 | Outpatient (CLI) | payer MEDICARE, MEDICAID, SELFPAY ==
[2022-10-19 12:55] LABS: ALT 28 U/L (14-59); AST 19 U/L (15-37); Albumin 3.4 g/dL (3.4-5.0); Alkaline Phosphatase 68 U/L (46-116); Anion Gap 10.6 mmol/L (3-11); BUN 9 mg/dL (7-18); Bilirubin, Total 0.5 mg/dL (0.2-1.0); CO2 24.4 mmol/L (21.0-32.0); CREATININE 0.8 mg/dL (0.55-1.02); Calcium 8.9 mg/dL (8.5-10.1); Chloride 107 mmol/L (98-107); Estimated GFR 95.46 (mL/min/1.73m2); Glucose 93 mg/dL (74-106); Potassium 3.8 mmol/L (3.5-5.1); Sodium 142 mmol/L (136-145); Total Protein 7.1 g/dL (6.4-8.2); Vitamin B12 362 pg/mL (193-986)
[2022-10-19 13:02] LABS: Vitamin D 25 Total 36.1 ng/mL (30-100)
[2022-10-24 09:13] LABS: Nicotinuric Acid <5.0 ng/mL
[2022-10-24 11:00] LABS: Thiamine (Vitamin B1), WB 162 nmol/L (70-180)
== END 2022-10-19 03:04 | disposition home or self-care (01) ==
LOC: LBO 03:04
PROVIDERS: PCP Physician Assistant Medical; Visit Provider Physician Assistant Medical
DX: F41.8 Other specified anxiety disorders (principal)
CPT/HCPCS: 36415; 80053; 82306; 84591; 82607; 84425

== ENCOUNTER 2022-10-26 19:12 | Emergency (ER) | payer MEDICARE, MEDICAID, SELFPAY ==
[2022-10-26 19:27] VITALS: BP 109/65; PULSE 80; RESP 16; TEMP 37; O2SAT 97
--- NOTE | 2022-10-26 19:31 | ED.GENADUL_ITS ---
Discharge Plan Disposition Patient Disposition: Home Condition: Stable Discharge Details Clinical Impression: Tick bite Primary Care Provider: Baron Hobson ED Provider: Nguyen Jones Home Meds and New Rx's Prescriptions: Continued albuterol sulfate [ProAir HFA] 90 mcg/actuation HFA aerosol inhaler 2 puff inhalation Q6H PRN (Reason: shortness of breath or wheezing) Qty: 6.7 0RF whgqotu-ecra-hzhoe-oreg-capryl 100 mg-150 mg- 50 mg-150 mg capsule PO cholecalciferol (vitamin D3) 25 mcg (1,000 unit) capsule 25 mcg PO DAILY multivitamin Tablet 1 tab PO DAILY vitamin B complex [B Complex-Vitamin B12] Tablet 1 tab PO DAILY lavender oil Oil 1 applic miscellaneous BID-QID PRN epinephrine [EpiPen 2-Sabas] 0.3 mg/0.3 mL auto-injector 0.3 mg IM ONCE Rx Instructions: as a single dose; may repeat once cyclobenzaprine 10 mg tablet 10 mg PO PRN PRN Patient Comments: TAKE ONE TABLET BY MOUTH THREE TIMES A DAY NEEDED FOR MUSCLE SPASM. USE SPARINGLY Discharge Instructions Instructions: Tick Bite (ED) Referrals: Baron Hobson PA [Primary Care Provider] - Discharge Data Discharge Date/Time-TO BE ENTERED AT DEPARTURE: 10/26/22 19:37 Medical Decision Making <Nguyen Jones NP - Last Filed: 10/27/22 20:11> tick removed, doxy given Medical Records Medical records reviewed: Yes I reviewed the patient's medical records. <Chau Rivas MD - Last Filed: 11/07/22 17:39> Note: I did not evaluate this patient. The patient was seen, evaluated, treated and dispositioned independently by PEDRO Jones. HPI <Nguyen Jones NP - Last Filed: 10/27/22 20:11> General Mode of arrival: ambulatory . Date/Time Provider Initiated Documentation: 10/26/22 19:31 . Limitations to Documentation: no limitations . Information obtained by: patient . HPI Narrative: imbedded tick, not engorged, no bullseye. Does not know how long its been attached. No other recent illness or complaints Related Data Home Medications Medication Instructions Recorded Confirmed epinephrine 0.3 mg/0.3 mL 0.3 mg IM ONCE 07/25/21 10/26/22 injection, auto-injector (EpiPen 2-Sabas) albuterol sulfate 90 mcg/actuation 2 puff inhalation Q6H PRN 10/14/21 10/26/22 aerosol inhaler (ProAir HFA) shortness of breath or wheezing #6.7 grams cholecalciferol (vitamin D3) 25 25 mcg PO DAILY 08/30/22 10/26/22 mcg (1,000 unit) capsule multivitamin 1 tab PO DAILY 08/30/22 10/26/22 tumeric 100 mg-germán 150 mg-olive cap PO 08/30/22 10/06/22 50 mg-oreg 150 mg-caprylate capsule cyclobenzaprine 10 mg tablet 10 mg PO PRN PRN 09/29/22 10/26/22 lavender oil 1 applic miscellaneous BID-QID PRN 10/04/22 10/26/22 vitamin B complex (B 1 tab PO DAILY 10/04/22 10/26/22 Complex-Vitamin B12 tablet) Previous Rx's Medication Instructions Recorded albuterol sulfate 90 mcg/actuation 2 puff inhalation Q6H PRN 10/14/21 aerosol inhaler (ProAir HFA) shortness of breath or wheezing #6.7 grams Allergies Allergy/AdvReac Type Severity Reaction Status Date / Time amoxicillin Allergy Severe Anaphylaxis Unverified 10/26/22 19:29 varenicline [From Chantix] Allergy Severe Unverified 10/26/22 19:29 bupropion [From Wellbutrin] Allergy Intermediate Unverified 10/26/22 19:29 codeine Allergy Unverified 10/26/22 19:29 aspirin AdvReac Severe Anxiety, Unverified 10/26/22 19:29 sobbing NSAIDS (Non-Steroidal AdvReac GI Unverified 10/26/22 19:29 Anti-Inflamma General Stated Complaint: RashLesion BHANU: 4 Review of Systems <Nguyen Jones NP - Last Filed: 10/27/22 20:11> All systems reviewed & are unremarkable except as noted in HPI and below PFSH <Nguyen Jones NP - Last Filed: 10/27/22 20:11> All Active Problems (Updated 10/30/22 @ 00:05 by SHAWN GEORGE) Tick bite (Acute) Internal derangement of left knee (Acute) DEPO MEDROL 10/04/20 Hyper-reflexia (Chronic) Arthralgia (Acute) Brain aneurysm (Acute) 2019, 3 mm, right ophthalmic artery, 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-no interval change as of 2021-followed yearly by neurosurgery at [facility]-observed, low risk current status Gillette's palsy (Acute) 2018-resolved Bronchitis with bronchospasm (Acute) Associated with [id number] apart from acute infection Personal history of nicotine dependence (Acute) 08/2021- 1/2 ppd, about 15 pk yr 08/2021-quit Multinodular thyroid (Acute) 2018- US at [facility] followed by [facility] endocrine - Depression with anxiety (Acute) 10/2021-be associated with panic attack Migraines (Chronic) TMJ dysfunction (Acute) PTSD (post-traumatic stress disorder) (Acute) Aneurysm (Acute) Exposure to bat without known bite (Acute) 2020-possible exposure to bat in house treated with rabies vaccine and immunoglobulin COVID-19 (Acute) 05/2021 URI/bronchitis 10/2021-URI symptoms but triggering anxiety Medical History Anxiety Asthma Breast abscess recurrent Cuboid fracture left Depression Supraumbilical hernia Surgical History H/O dilation and curettage (~07/22/09) H/O laparoscopy (~07/22/09) cholecystectomy History of excision of mass (~07/15/06) paratubal cysts, excision chronic mastitis right breast- 2014 History of hernia repair (~05/28/14) umbilical Tubal ligation status Family History Mother Depression Father , 55 Kidney problem Brother , 27 Depression Son Asthma Son No problems noted. Social History Smoking/Tobacco Use Status: Former Tobacco Use Quit status: considering quitting Second Hand Exposure: Yes Smoking risk assessment performed?: Yes Alcohol Intake: never Drug use: Never Substance use type: does not use Caregiver/Support person: No Household members: children Housing: apartment Do you need help understanding health information?: Never Pets and animals: Yes Pets and animals: cat(s) and hamster(s) Sexually active: No Do you think of yourself as: straight/heterosexual Current gender identity: female What is your relationship status?: never How often do you talk on the phone with friends or family?: decline to answer How often do you get together with friends or relatives?: decline to answer How often do you attend alevism or latter day services?: decline to answer Do you belong to any clubs or organized social groups?: decline to answer Panel score (0-1 are the most socially isolated patients): 0 Seatbelt use: always Helmet use: Yes Helmet use: always Drive intox or ride w/intox 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: No Do you feel safe at home: Yes Do you feel safe in your relationship?: Yes Exam <Nguyen Jones NP - Last Filed: 10/27/22 20:11> Const General: cooperative, healthy appearing and comfortable Nutritional Appearance: average body habitus Orientation: alert, awake and oriented x3 Resp Effort & Inspection: normal respiratory effort Cardio Rate: regular rate Rhythm: regular rhythm GI Inspection: normal to inspection Skin General skin exam: no rashes or lesions noted Lesions: other (Tick removed by nursing) Neuro General: patient alert, patient awake and patient oriented x3 Extrem General: normal to inspection and full ROM Course <Nguyen Jones NP - Last Filed: 10/27/22 20:11> Vital Signs Vital signs: Vital Signs Temperature 37.0 C 10/26/22 19:27 Pulse 80 10/26/22 19:27 Respiratory Rate 16 10/26/22 19:27 Blood Pressure 109/65 10/26/22 19:27 Pulse Oximetry 97 10/26/22 19:27 Temperature 37.0 C 10/26/22 19:27 Temperature Source Temporal Artery Scan 10/26/22 19:27 Pulse 80 10/26/22 19:27 Respiratory Rate 16 10/26/22 19:27 Respiratory Effort Normal 10/26/22 19:27 Blood Pressure 109/65 10/26/22 19:27 Blood Pressure Position Sitting 10/26/22 19:27 Pulse Oximetry 97 10/26/22 19:27 Oxygen Delivery Method Room Air 10/26/22 19:27 Oxygen Flow Rate 0 10/26/22 19:27 Pain Level 1 10/26/22 19:27
[2022-10-26] MEDS: Doxycycline Hyclate 100 MG CAP 200 MG PO (19:40)
== END 2022-10-26 19:37 | disposition home or self-care (01) ==
PROVIDERS: Emergency Provider Nurse Practitioner Acute Care; PCP Physician Assistant Medical
DX: S40.862A Insect bite (nonvenomous) of left upper arm, initial encounter (principal); W57.XXXA Bitten or stung by nonvenomous insect and other nonvenomous arthropods, initial encounter
CPT/HCPCS: 99283

== ENCOUNTER 2023-03-24 07:53 | Emergency (ER) | payer MEDICARE, MEDICAID, SELFPAY ==
[2023-03-24 07:56] VITALS: BP 122/51; PULSE 94; RESP 14; TEMP 36.8; O2SAT 96
[2023-03-24 08:02] VITALS: RESP 14
--- NOTE | 2023-03-24 08:02 | W.ED.GENAD ---
Discharge Plan Disposition Patient Disposition: Home Condition: Good Discharge Details Clinical Impression: Edema, peripheral Primary Care Provider: Baron Hobson ED Provider: Anna Barraza Home Meds and New Rx's Prescriptions: Continued albuterol sulfate [ProAir HFA] 90 mcg/actuation HFA aerosol inhaler 2 puff inhalation Q6H PRN (Reason: shortness of breath or wheezing) Qty: 6.7 0RF pfrigrk-bojz-mfxch-oreg-capryl 100 mg-150 mg- 50 mg-150 mg capsule 1 cap PO DAILY cholecalciferol (vitamin D3) 25 mcg (1,000 unit) capsule 25 mcg PO DAILY multivitamin Tablet 1 tab PO DAILY vitamin B complex [B Complex-Vitamin B12] Tablet 1 tab PO DAILY lavender oil Oil 1 applic miscellaneous BID-QID PRN epinephrine [EpiPen 2-Sabas] 0.3 mg/0.3 mL auto-injector 0.3 mg IM ONCE Rx Instructions: as a single dose; may repeat once cyclobenzaprine 10 mg tablet 10 mg PO PRN PRN Patient Comments: TAKE ONE TABLET BY MOUTH THREE TIMES A DAY NEEDED FOR MUSCLE SPASM. USE SPARINGLY Discharge Instructions Instructions: Leg Edema (ED) Additional Instructions: Take 1, 15 mg Xarelto tomorrow morning as instructed. Call radiology after 7 AM tomorrow morning for an appointment time for your left lower extremity ultrasound. This is to rule out deep vein thrombosis in your swollen left lower leg. We will return to the ED following this for additional instructions and test results. Return sooner for severe difficulty breathing or chest discomfort. Medical Decision Making Of note, patient states that she has sensitivity to medicines and requests the ability to stay for 30 minutes after taking the Xarelto. We did talk about Xarelto side effects. She will return tomorrow for a left lower extremity ultrasound. HPI General Date/Time Provider Initiated Documentation: 03/24/23 07:57. HPI Narrative: This 42-year-old female patient presents with a chief complaint of left lower extremity swelling that is been ongoing for the past week. The patient does have a history of knee issues on the left-hand side. She has had prior surgery for same. She says there is an area of pain on her inferior lower calf but she has had this for many years. She says there is no additional pain. She does say she has had a little bit more swelling around her ankle and for this reason decided to come in. She denies chest pain or shortness of breath. She has a little bit of low back pain today that is new. She says she typically has a little bit of left hip pain and this is unchanged. The pain in her calf that is chronic is an ache, mild. Does not radiate anywhere. Related Data Home Medications Medication Instructions Recorded Confirmed epinephrine 0.3 mg/0.3 mL 0.3 mg IM ONCE 07/25/21 03/24/23 injection, auto-injector (EpiPen 2-Sabas) albuterol sulfate 90 mcg/actuation 2 puff inhalation Q6H PRN 10/14/21 03/24/23 aerosol inhaler (ProAir HFA) shortness of breath or wheezing #6.7 grams cholecalciferol (vitamin D3) 25 25 mcg PO DAILY 08/30/22 03/24/23 mcg (1,000 unit) capsule multivitamin 1 tab PO DAILY 08/30/22 03/24/23 tumeric 100 mg-germán 150 mg-olive 1 cap PO DAILY 08/30/22 03/24/23 50 mg-oreg 150 mg-caprylate capsule cyclobenzaprine 10 mg tablet 10 mg PO PRN PRN 09/29/22 03/24/23 lavender oil 1 applic miscellaneous BID-QID PRN 10/04/22 03/24/23 vitamin B complex (B 1 tab PO DAILY 10/04/22 03/24/23 Complex-Vitamin B12 tablet) Previous Rx's Medication Instructions Recorded albuterol sulfate 90 mcg/actuation 2 puff inhalation Q6H PRN 10/14/21 aerosol inhaler (ProAir HFA) shortness of breath or wheezing #6.7 grams Allergies Allergy/AdvReac Type Severity Reaction Status Date / Time amoxicillin Allergy Severe Anaphylaxis Unverified 03/24/23 08:12 varenicline [From Chantix] Allergy Severe Unverified 03/24/23 08:12 bupropion [From Wellbutrin] Allergy Intermediate Unverified 03/24/23 08:12 codeine Allergy Unverified 03/24/23 08:12 aspirin AdvReac Severe Anxiety, Unverified 03/24/23 08:12 sobbing NSAIDS (Non-Steroidal AdvReac GI Unverified 03/24/23 08:12 Anti-Inflamma General Stated Complaint: Vascular BHANU: 4 Review of Systems Constitutional Constitutional: Denies chills, Denies fever(s), Denies headache(s) and Denies weakness Eyes Eyes: Denies diplopia and Reports other (no redness) ENT Ears, Nose, Mouth, and Throat: Denies otalgia, Denies headache(s), Denies nasal congestion, Denies nasal discharge, Denies neck pain and Denies sore throat Cardiovascular Cardiovascular: Denies chest pain, Denies palpitations and Denies dyspnea Respiratory Respiratory: Denies cough and Denies dyspnea Gastrointestinal Gastrointestinal: Denies abdominal pain, Denies diarrhea, Denies nausea and Denies vomiting Genitourinary Genitourinary: Denies dysuria Musculoskeletal Musculoskeletal: Denies myalgias, Denies muscle weakness, Denies neck pain, Denies numbness and Reports other (has LLE edema) Integumentary/Breasts Skin/Breast: Denies change in pigmentation and Denies rash Neurologic Neurologic: Denies headache(s), Denies numbness and Denies weakness Endocrine Endocrine: Denies palpitations PFSH All Active Problems (Updated 03/24/23 @ 08:24 by Anna Barraza MD) Edema, peripheral (Acute) Internal derangement of left knee (Acute) DEPO MEDROL 10/04/20 Hyper-reflexia (Chronic) Arthralgia (Acute) Brain aneurysm (Acute) 2019, 3 mm, right ophthalmic artery, 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-no interval change as of 2021-followed yearly by neurosurgery at [facility]-observed, low risk current status Gillette's palsy (Acute) 2018-resolved Bronchitis with bronchospasm (Acute) Associated with [id number] apart from acute infection Personal history of nicotine dependence (Acute) 08/2021- 06/04 ppd, about 15 pk yr 08/2021-quit Multinodular thyroid (Acute) 2018- US at [facility] followed by [facility] endocrine - Depression with anxiety (Acute) 10/2021-be associated with panic attack Migraines (Chronic) TMJ dysfunction (Acute) PTSD (post-traumatic stress disorder) (Acute) Aneurysm (Acute) Exposure to bat without known bite (Acute) 2020-possible exposure to bat in house treated with rabies vaccine and immunoglobulin COVID-19 (Acute) 05/2021 URI/bronchitis 10/2021-URI symptoms but triggering anxiety Medical History Breast abscess recurrent Cuboid fracture left Supraumbilical hernia Anxiety Asthma Depression Surgical History Tubal ligation status History of hernia repair (~05/28/14) umbilical H/O dilation and curettage (~07/22/09) History of excision of mass (~07/15/06) paratubal cysts, excision chronic mastitis right breast- 2014 H/O laparoscopy (~07/22/09) cholecystectomy Family History Mother Depression Father , 55 Kidney problem Brother , 27 Depression Son Asthma Son No problems noted. Social History Smoking/Tobacco Use Status: Former Tobacco Use Quit status: considering quitting Second Hand Exposure: Yes Smoking risk assessment performed?: Yes Alcohol Intake: never Drug use: Never Substance use type: does not use Caregiver/Support person: No Household members: children Housing: apartment Do you need help understanding health information?: Never Pets and animals: Yes Pets and animals: cat(s) and hamster(s) Sexually active: No Do you think of yourself as: straight/heterosexual Current gender identity: female What is your relationship status?: never How often do you talk on the phone with friends or family?: decline to answer How often do you get together with friends or relatives?: decline to answer How often do you attend voodoo or congregational services?: decline to answer Do you belong to any clubs or organized social groups?: decline to answer Panel score (0-1 are the most socially isolated patients): 0 Seatbelt use: always Helmet use: Yes Helmet use: always Drive intox or ride w/intox regional o[employer] company driver: No Do you feel safe at home: Yes Do you feel safe in your relationship?: Yes Exam Const General: no acute distress, well developed, well groomed and not in acute distress Nutritional Appearance: well nourished Orientation: alert and oriented x3 HENMT Head: normocephalic and atraumatic Ears: external ears normal Mouth: oropharynx normal and moist mucous membranes Throat: posterior oropharynx normal Eyes Conjunctivae: conjunctivae normal Neck Neck: full ROM and supple Chest Chest: normal inspection of the chest Resp Effort & Inspection: normal respiratory effort Auscultation: clear to auscultation bilaterally Cardio Rate: regular rate Rhythm: regular rhythm Heart Sounds: no murmurs and no rubs GI Inspection: normal to inspection Palpation: soft, nontender and other (non distended) Auscultation: normal bowel sounds Skin General skin exam: no rashes or lesions noted and other (pink, warm, dry) Neuro General: patient alert, patient awake and patient oriented x3 Speech: speech normal Motor: other (MOTA) Sensory Exam: no sensory deficits noted ( Sensation intact distally bilateral lower extremities) Extrem General: normal to inspection, full ROM and pedal edema (RLE 48.5, LLE 50.5 cm calf diameter; 2 plus DP pulses B, Feet PWD) Psych Mental Status: mental status grossly normal Speech and Movement: speech and movement normal Affect: normal affect Course Vital Signs Vital signs: Vital Signs Temperature 36.8 C 03/24/23 07:56 Pulse 94 H 03/24/23 07:56 Respiratory Rate 14 03/24/23 07:56 Blood Pressure 122/51 L 03/24/23 07:56 Pulse Oximetry 96 03/24/23 07:56 Temperature 36.8 C 03/24/23 07:56 Temperature Source Oral 03/24/23 07:56 Pulse 94 H 03/24/23 07:56 Respiratory Rate 14 03/24/23 07:56 Respiratory Effort Normal, Non-Labored 03/24/23 08:01 Blood Pressure 122/51 L 03/24/23 07:56 Blood Pressure Position Sitting 03/24/23 07:56 Pulse Oximetry 96 03/24/23 07:56 Oxygen Delivery Method Room Air 03/24/23 07:56 Oxygen Flow Rate 0 03/24/23 07:56 Pain Level 2 03/24/23 07:56
--- NOTE | 2023-03-24 08:22 | NUR.NOTE ---
Pt is being referred to Diagnostic Imaging for an Ultrasound tomorrow due to Left Lower Extremity Swelling, Rule out DVT
[2023-03-24] MEDS: Rivaroxaban 15 MG TABLET 30 MG PO (08:41)
[2023-03-24 09:03] VITALS: BP 108/51; PULSE 76; RESP 16; TEMP 36.9; O2SAT 96
== END 2023-03-24 09:08 | disposition home or self-care (01) ==
PROVIDERS: Emergency Provider Emergency Medicine; PCP Physician Assistant Medical
DX: M79.605 Pain in left leg (principal); R60.0 Localized edema; G89.29 Other chronic pain
CPT/HCPCS: 99283; 99284

== ENCOUNTER 2023-03-25 09:26 | Emergency (ER) | payer MEDICARE, MEDICAID, SELFPAY ==
[2023-03-25 09:30] VITALS: BP 112/78; PULSE 60; RESP 18; TEMP 36.9; O2SAT 97
--- NOTE | 2023-03-25 10:12 | ED.GENADUL_ITS ---
Discharge Plan Disposition Patient Disposition: Home Condition: Good Discharge Details Clinical Impression: Leg swelling Primary Care Provider: Baron Hobson ED Provider: Jenny Wagner Home Meds and New Rx's Prescriptions: No Action albuterol sulfate [ProAir HFA] 90 mcg/actuation HFA aerosol inhaler 2 puff inhalation Q6H PRN (Reason: shortness of breath or wheezing) Qty: 6.7 0RF yoinvho-aqcl-vhans-oreg-capryl 100 mg-150 mg- 50 mg-150 mg capsule 1 cap PO DAILY cholecalciferol (vitamin D3) 25 mcg (1,000 unit) capsule 25 mcg PO DAILY multivitamin Tablet 1 tab PO DAILY vitamin B complex [B Complex-Vitamin B12] Tablet 1 tab PO DAILY lavender oil Oil 1 applic miscellaneous BID-QID PRN epinephrine [EpiPen 2-Sabas] 0.3 mg/0.3 mL auto-injector 0.3 mg IM ONCE Rx Instructions: as a single dose; may repeat once cyclobenzaprine 10 mg tablet 10 mg PO PRN PRN Patient Comments: TAKE ONE TABLET BY MOUTH THREE TIMES A DAY NEEDED FOR MUSCLE SPASM. USE SPARINGLY Discharge Instructions Instructions: Leg Edema (ED) Additional Instructions: Stop taking the blood thinner. Call your PCP today to schedule an appointment within one week to followup on your visit today. Return to the emergency department for new or worsening symptoms including feeling like you are going to pass out, worsening leg swelling, or if you have any other concerns. Referrals: Baron Hobson PA [Primary Care Provider] - Medical Decision Making 42yo F with hx of arthritis, fibromyalgia, PTSD, presenting after DVT ultrasound this morning; has had left leg swelling for several days, today with lightheadedness and left arm weakness. Vital signs and physical exam reassuring, normal neurologic exam. Note from ED visit yesterday reviewed; discharged with anticoagulation, ultrasound planned for today. Given lightheadedness today will check labs/EKG, though event described was positional and seems likely related to bending over. With normal neurologic exam would not further pursue CVA for subjective left arm weakness. EKG NSR, appropriate intervals, no indication of occlusive AL. Labs reviewed as below, CBC & CMP reassuring with no actionable abnormalities, normal TSH. Ultrasound result reviewed, no DVT. On reassessment she remains well appearing. Unclear etiology of symptoms, with reassuring workup here appropriate for PCP followup. Advised to discontinue anticogulation. Discharged home; discharge instructions including return precautions were reviewed with patient who verbalized understanding. All questions were answered and they are in full agreement with the plan. Medical Records Medical records reviewed: Yes I reviewed the patient's medical records. Medical records narrative: ED visit note 03/24/23 Imaging Data Radiologic Study: Imaging: Ultrasound Radiologist's impression: IMPRESSION: 1. No evidence of DVT in the left lower extremity. Lab Data Lab results reviewed: Yes I reviewed the patient's lab results. Labs: Laboratory Tests Range/Units 03/25/23 10:10 WBC (4.4-10.8) 10^3/uL 7.63 RBC (3.93-5.22) 10^6/uL 4.32 Hgb (11.2-15.7) g/dL 13.1 Hct (36.0-46.0) % 37.9 MCV (80-95) fL 88 MCH (27.0-33.0) pg 30.3 MCHC (32.0-36.0) % 34.6 RDW (11.7-14.6) % 12.4 Plt Count (130-400) 10^3/uL 249 MPV (8.0-11.0) fL 8.6 Immature Gran % 0.3 Neutrophils % 52.9 Lymphocytes % 35.1 Monocytes % 6.8 Eosinophils % 4.2 Basophils % 0.7 Nucleated RBC % (0.0-0.3) % 0.0 Absolute Neutrophils (1.2-6.7) 10^3/uL 4.04 Absolute Lymphocytes (1.2-3.4) 10^3/uL 2.68 Absolute Monocytes (0.1-0.8) 10^3/uL 0.52 Absolute Eosinophils (0.0-0.7) 10^3/uL 0.32 Absolute Basophils (0.0-0.2) 10^3/uL 0.05 Sodium (136-145) mmol/L 141 Potassium (3.5-5.1) mmol/L 3.8 Chloride (98-107) mmol/L 106 Carbon Dioxide (21.0-32.0) mmol/L 25.1 Anion Gap (3-11) mmol/L 9.9 BUN (7-18) mg/dL 8 Creatinine (0.55-1.02) mg/dL 0.7 Est GFR (CKD-EPI 2020) (mL/min/1.73m2) 112.05 Glucose (74-106) mg/dL 103 Calcium (8.5-10.1) mg/dL 9.3 Total Bilirubin (0.2-1.0) mg/dL 0.3 AST (15-37) U/L 21 ALT (14-59) U/L 45 Alkaline Phosphatase (46-116) U/L 75 Total Protein (6.4-8.2) g/dL 6.9 Albumin (3.4-5.0) g/dL 3.1 L TSH (0.36-3.74) uIU/mL 0.94 HPI General Mode of arrival: ambulatory . Date/Time Provider Initiated Documentation: 03/25/23 09:36 . Limitations to Documentation: no limitations . Information obtained by: patient . HPI Narrative: 42yo F with hx of arthritis, fibromyalgia, PTSD, presenting after DVT ultrasound this morning. Seen in this ED yesterday evening for left leg swelling and knee pain; started on blood thinner and plan for ultrasound this morning. After ultrasound presented to the ED; also reports this morning her left arm feels weak and she felt woozy when she leaned over. Leg swelling persists as well as worsened knee pain from baseline. No numbness or tingling. No syncope. No shortness of breath or chest pain. She is otherwise in her usual state of health with no fevers, chills, rash, nausea, vomiting, abdominal pain, pleuritic pain, or other concerns. Related Data Home Medications Medication Instructions Recorded Confirmed epinephrine 0.3 mg/0.3 mL 0.3 mg IM ONCE 07/25/21 03/25/23 injection, auto-injector (EpiPen 2-Sabsa) albuterol sulfate 90 mcg/actuation 2 puff inhalation Q6H PRN 10/14/21 03/25/23 aerosol inhaler (ProAir HFA) shortness of breath or wheezing #6.7 grams cholecalciferol (vitamin D3) 25 25 mcg PO DAILY 08/30/22 03/25/23 mcg (1,000 unit) capsule multivitamin 1 tab PO DAILY 08/30/22 03/25/23 tumeric 100 mg-germán 150 mg-olive 1 cap PO DAILY 08/30/22 03/25/23 50 mg-oreg 150 mg-caprylate capsule cyclobenzaprine 10 mg tablet 10 mg PO PRN PRN 09/29/22 03/25/23 lavender oil 1 applic miscellaneous BID-QID PRN 10/04/22 03/25/23 vitamin B complex (B 1 tab PO DAILY 10/04/22 03/25/23 Complex-Vitamin B12 tablet) Previous Rx's Medication Instructions Recorded albuterol sulfate 90 mcg/actuation 2 puff inhalation Q6H PRN 10/14/21 aerosol inhaler (ProAir HFA) shortness of breath or wheezing #6.7 grams Allergies Allergy/AdvReac Type Severity Reaction Status Date / Time amoxicillin Allergy Severe Anaphylaxis Unverified 03/25/23 09:33 varenicline [From Chantix] Allergy Severe Unverified 03/25/23 09:33 bupropion [From Wellbutrin] Allergy Intermediate Unverified 03/25/23 09:33 codeine Allergy Unverified 03/25/23 09:33 aspirin AdvReac Severe Anxiety, Unverified 03/25/23 09:33 sobbing NSAIDS (Non-Steroidal AdvReac GI Unverified 03/25/23 09:33 Anti-Inflamma General Stated Complaint: Recheck BHANU: 3 Review of Systems Narrative: see HPI PFSH All Active Problems (Updated 03/25/23 @ 11:01 by Jenny Wagner MD) Leg swelling (Acute) Edema, peripheral (Acute) Internal derangement of left knee (Acute) DEPO MEDROL 10/04/20 Hyper-reflexia (Chronic) Arthralgia (Acute) Brain aneurysm (Acute) 2018, 3 mm, right ophthalmic artery, 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-no interval change as of 2021-followed yearly by neurosurgery at [facility]-observed, low risk current status Gillette's palsy (Acute) 2019-resolved Bronchitis with bronchospasm (Acute) Associated with [id number] apart from acute infection Personal history of nicotine dependence (Acute) 08/2021- 1/2 ppd, about 15 pk yr 08/2021-quit Multinodular thyroid (Acute) 2019- [facility] at [facility] followed by [facility] - Depression with anxiety (Acute) 10/2021-be associated with panic attack Migraines (Chronic) TMJ dysfunction (Acute) PTSD (post-traumatic stress disorder) (Acute) Aneurysm (Acute) Exposure to bat without known bite (Acute) 2020-possible exposure to bat in house treated with rabies vaccine and immunoglobulin COVID-19 (Acute) 05/2021 URI/bronchitis 10/2021-URI symptoms but triggering anxiety Medical History Breast abscess recurrent Cuboid fracture left Supraumbilical hernia Anxiety Asthma Depression Surgical History Tubal ligation status History of hernia repair (~05/28/14) umbilical H/O dilation and curettage (~07/22/09) History of excision of mass (~07/15/06) paratubal cysts, excision chronic mastitis right breast- 2014 H/O laparoscopy (~07/22/09) cholecystectomy Family History Mother Depression Father , 55 Kidney problem Brother , 27 Depression Son Asthma Son No problems noted. Social History Smoking/Tobacco Use Status: Former Tobacco Use Quit status: considering quitting Second Hand Exposure: Yes Smoking risk assessment performed?: Yes Alcohol Intake: never Drug use: Never Substance use type: does not use Caregiver/Support person: No Household members: children Housing: apartment Do you need help understanding health information?: Never Pets and animals: Yes Pets and animals: cat(s) and hamster(s) Sexually active: No Do you think of yourself as: straight/heterosexual Current gender identity: female What is your relationship status?: never How often do you talk on the phone with friends or family?: decline to answer How often do you get together with friends or relatives?: decline to answer How often do you attend protestant or tenriism services?: decline to answer Do you belong to any clubs or organized social groups?: decline to answer Panel score (0-1 are the most socially isolated patients): 0 Seatbelt use: always Helmet use: Yes Helmet use: always Drive intox or ride w/intox transportation driver: No Do you feel safe at home: Yes Do you feel safe in your relationship?: Yes Exam Narrative Exam Narrative: General: Alert, well appearing, well nourished, in no acute distress. Head: Normocephalic, atraumatic Neck: Trachea midline, Neck supple. Cardiac: RRR, no murmurs appreciated Resp: No respiratory distress. CTAB. Abd: Soft, non-distended, nontender : No suprapubic tenderness. Extremities: No deformities. Symmetric nonpitting peripheral edema. Neuro: GCS 15. PERRL. EOMI. Fluent speech, no dysarthria. Motor- 5/5 strength symmetric bilateral upper and lower extremities Sensation- Intact to light touch and symmetric multiple dermatomes including upper and lower extremities Gait/station: Normal stance. No truncal ataxia. Steady gait with equal normal steps Course Vital Signs Vital signs: Vital Signs Temperature 36.9 C 03/25/23 09:30 Pulse 60 03/25/23 09:30 Respiratory Rate 18 03/25/23 09:30 Blood Pressure 112/78 03/25/23 09:30 Pulse Oximetry 97 03/25/23 09:30 Temperature 36.9 C 03/25/23 09:30 Temperature Source Temporal Artery Scan 03/25/23 09:30 Pulse 60 03/25/23 09:30 Respiratory Rate 18 03/25/23 09:30 Respiratory Effort Normal, Non-Labored 03/25/23 09:34 Blood Pressure 112/78 03/25/23 09:30 Blood Pressure Position Sitting 03/25/23 09:30 Pulse Oximetry 97 03/25/23 09:30 Oxygen Delivery Method Room Air 03/25/23 09:30 Oxygen Flow Rate 0 03/25/23 09:30
--- NOTE | 2023-03-25 10:15 | RT.EKG_ITS ---
APPROVED REPORT Exam: Resting ECG Reason for Exam: lightheaded Patient Location: E HR:64 bpm ECG Measurements Heart Rate 64 AXIS [place] 172 P 35 QRSd 82 QRS 65 QT 397 T 45 QTc 410 Conclusion Sinus rhythm...V-rate 60- [address] segment or T wave abnormalities to suggest occlusive PR
[2023-03-25 10:19] LABS: Abs Immature Grans 0.02 10^3/uL (0.0-0.06); Absolute Basophil Count 0.05 10^3/uL (0.0-0.2); Absolute Eosinophil Count 0.32 10^3/uL (0.0-0.7); Absolute Lymphocyte Count 2.68 10^3/uL (1.2-3.4); Absolute Monocyte Count 0.52 10^3/uL (0.1-0.8); Absolute Neutrophil Count 4.04 10^3/uL (1.2-6.7); Basophils % 0.7; Eosinophils % 4.2; HCT 37.9 % (36.0-46.0); HGB 13.1 g/dL (11.2-15.7); Immature Grans % 0.3; Lymphocytes % 35.1; MCH 30.3 pg (27.0-33.0); MCHC 34.6 % (32.0-36.0); MCV 88 fL (80-95); MPV 8.6 fL (8.0-11.0); Monocytes % 6.8; Neutrophils % 52.9; Platelet Count 249 10^3/uL (130-400); RBC 4.32 10^6/uL (3.93-5.22); RDW 12.4 % (11.7-14.6); WBC 7.63 10^3/uL (4.4-10.8)
[2023-03-25 10:43] LABS: ALT 45 U/L (14-59); AST 21 U/L (15-37); Albumin 3.1 g/dL (3.4-5.0); Alkaline Phosphatase 75 U/L (46-116); Anion Gap 9.9 mmol/L (3-11); BUN 8 mg/dL (7-18); Bilirubin, Total 0.3 mg/dL (0.2-1.0); CO2 25.1 mmol/L (21.0-32.0); CREATININE 0.7 mg/dL (0.55-1.02); Calcium 9.3 mg/dL (8.5-10.1); Chloride 106 mmol/L (98-107); Estimated GFR 112.05 (mL/min/1.73m2); Glucose 103 mg/dL (74-106); Potassium 3.8 mmol/L (3.5-5.1); Sodium 141 mmol/L (136-145); TSH (W/Ref FT4) 0.94 uIU/mL (0.36-3.74); Total Protein 6.9 g/dL (6.4-8.2)
== END 2023-03-25 11:06 | disposition home or self-care (01) ==
PROVIDERS: Emergency Provider Student in an Organized Health Care Education/Training Program; PCP Physician Assistant Medical
DX: R42 Dizziness and giddiness (principal); R22.42 Localized swelling, mass and lump, left lower limb; M79.7 Fibromyalgia; Z87.891 Personal history of nicotine dependence
CPT/HCPCS: 80053; 93005; 99283; 84443; 85025; 93010; 93971

== ENCOUNTER → 2023-03-25 12:55 | Outpatient (CLI) | payer MEDICARE, MEDICAID, SELFPAY ==
--- NOTE | 2023-03-25 | DI.US_ITS ---
Exam(s) US LOWER EXTREMITY VENOUS LT EXAM: US LOWER EXTREMITY VENOUS LT CLINICAL HISTORY: LLE EDEMA, ? DVT TECHNIQUE: Grayscale, color, and doppler imaging of the deep venous system of the left lower extremi ty was performed. COMPARISON: US US THYROID from 01/31/2021 FINDINGS: There is no evidence of intraluminal thrombus and there is normal compression and augmentation demons trated within the common femoral vein, femoral vein, and popliteal vein. In the ipsilateral calf the interrogated veins also exhibit normal compression/ augmentation properti es. The ipsilateral saphenofemoral junction is patent. IMPRESSION: 1. No evidence of DVT in the left lower extremity. DATA REPOSITORY:
== END ==
PROVIDERS: PCP Physician Assistant Medical; Visit Provider Emergency Medicine
DX: R22.42 Localized swelling, mass and lump, left lower limb (principal)
CPT/HCPCS: 93971

== ENCOUNTER 2023-07-02 09:16 | Emergency (ER) | payer MEDICARE, MEDICAID, SELFPAY ==
[2023-07-02 09:28] VITALS: BP 114/78; PULSE 77; RESP 18; TEMP 36.4; O2SAT 97
--- NOTE | 2023-07-02 09:30 | DI.RAD_ITS ---
Exam(s) XR CHEST 2V PA LATERAL EXAM: XR CHEST 2V PA LATERAL CLINICAL HISTORY: cough, eval for pneumonia. TECHNIQUE: 2D digital imaging was performed. COMPARISON: No exams were available for comparison FINDINGS: 2 views: Heart size is normal. The mediastinum is not widened. Lungs are clear. No infiltrates nor pleural effusions. IMPRESSION: No acute pulmonary findings. DATA REPOSITORY: RADIATION DOSE DELIVERED:
--- NOTE | 2023-07-02 09:30 | DI.US_ITS ---
Exam(s) US THYROID EXAM: US THYROID CLINICAL HISTORY: hx nodules, check for worsening thyroid nodules. TECHNIQUE: Ultrasound thyroid performed using standard protocol. COMPARISON: US US LOWER EXTREMITY VENOUS LT from 03/25/2023 FINDINGS: Both thyroid lobes exhibit upper normal size. There are bilateral nodules. RIGHT THYROID LOBE: Measures 1.8 cm AP x 1.6 cm wide x 4.8 cm craniocaudal There is a dominant nodule in the mid right lobe which measures 1.7 x 0.9 x 1.1 cm. Classification o f this nodule is as follows; Composition: Mixed solid cystic-1 point Echogenicity: Solid part of this nodule is relatively isoechoic to surrounding parenchyma-1 point Shape: Wider than taller-0 points Margin: Find-0 points Echogenic Foci: Noted-1 point Total Points for this nodule: 3 ACR Ti-Rads Category: TR3 This nodule can be followed ISTHMUS: Normal thickness. There are no nodules in the isthmus. LEFT THYROID LOBE: Measures 1.8 cm AP x 1.6 wide x 4.8 cm craniocaudal Multiple nodules noted in the left lobe. The 2 largest are discussed here: Nodule #1 this is at the midpole level of the left lobe. Size: Measures 1.1 x 0.7 x 1.0 cm Composition: Solid-2 points Echogenicity: Hypoechoic compared to surrounding parenchyma-2 points Shape: Wider than taller in the transverse plane-0 points Margin: Smooth-0 points Echogenic Foci: None-0 points Total points for this nodule: 4 ACR Ti-Rads Category: 4 This nodule can be followed as it measures less than 1.5 cm Nodule #2 . This nodule is located inferiorly in the left lobe. Size: Measures 1.2 x 1.1 x 1.3 cm Composition: Solid-2 points Echogenicity: Isoechoic-1 point Shape: Wider than taller in the transverse plane-0 points Margin: Irregular-2 points Echogenic Foci: None-0 points Total Points for this nodule: 5 ACR Ti-Rads Category: 4 This nodule can be followed as it measures less than 1.5 cm. LYMPH NODES: There are multiple small lymph nodes in both sides the neck. There is an enlarged lymph node measuring 3.8 x 0.7 x 1.2 cm. This corresponds to a painful area in the right-side of the neck. IMPRESSION: 1. Bilateral thyroid nodules as described above. Graded as above, none of which presently require ult rasound-guided FNA but which require appropriate follow-up repeat ultrasound in 1 year 2. There are multiple slightly enlarged lymph nodes in both sides the neck. 3. Largest lymph node is in the right-side of the neck corresponding to this patient's area of pain a nd this node measures 3.8 x 1.2 x 0.7 cm. Apparently this patient has pharyngitis Called by myself to ER provider. DATA REPOSITORY:
[2023-07-02 09:32] VITALS: BP 114/78; PULSE 77; RESP 18; TEMP 36.4; O2SAT 97
[2023-07-02] MEDS: Acetaminophen 500 MG TAB 1000 MG PO (10:18)
[2023-07-02 10:23] LABS: COVID-19 PCR Negative (Negative); Influenza A PCR Negative (Negative); Influenza B PCR Negative (Negative); RSV PCR Negative (Negative)
[2023-07-02 10:24] LABS: Source Nasopharynx
[2023-07-02 10:34] LABS: Mono Screening Negative (Negative)
--- NOTE | 2023-07-02 10:56 | ED.GENADUL_ITS ---
HPI General Date/Time Provider Initiated Documentation: 07/02/23 09:33 . HPI Narrative: 42-year-old female with a past medical history of thyroid nodules previous brain aneurysm, depression, PTSD, who presents today for evaluation of sore throat. Patient states that she has had a sore throat for the last 3 days. She has had a mild cough. Occasional fever. She admits to mild pain with swallowing and eating. Patient is regularly followed by [facility] for her thyroid nodules. No other complaints at this time. She has taken NSAIDs without significant improvement. No difficulty speaking. No difficulty controlling secretions. Related Data Home Medications Medication Instructions Recorded Confirmed epinephrine 0.3 mg/0.3 mL 0.3 mg IM ONCE 07/25/21 03/25/23 injection, auto-injector (EpiPen 2-Sabas) albuterol sulfate 90 mcg/actuation 2 puff inhalation Q6H PRN 10/14/21 03/25/23 aerosol inhaler (ProAir HFA) shortness of breath or wheezing #6.7 grams cholecalciferol (vitamin D3) 25 25 mcg PO DAILY 08/30/22 03/25/23 mcg (1,000 unit) capsule multivitamin 1 tab PO DAILY 08/30/22 03/25/23 turmeric 100 mg-germán 150 1 cap PO DAILY 08/30/22 03/25/23 mg-olive 50 mg-oreg 150 mg-capryl capsule cyclobenzaprine 10 mg tablet 10 mg PO PRN PRN 09/29/22 03/25/23 lavender oil 1 applic miscellaneous BID-QID PRN 10/04/22 03/25/23 vitamin B complex (B 1 tab PO DAILY 10/04/22 03/25/23 Complex-Vitamin B12 tablet) Previous Rx's Medication Instructions Recorded albuterol sulfate 90 mcg/actuation 2 puff inhalation Q6H PRN 10/14/21 aerosol inhaler (ProAir HFA) shortness of breath or wheezing #6.7 grams Allergies Allergy/AdvReac Type Severity Reaction Status Date / Time amoxicillin Allergy Severe Anaphylaxis Unverified 07/02/23 09:31 varenicline [From Chantix] Allergy Severe Unverified 07/02/23 09:31 bupropion [From Wellbutrin] Allergy Intermediate Unverified 07/02/23 09:31 codeine Allergy Unverified 07/02/23 09:31 aspirin AdvReac Severe Anxiety, Unverified 07/02/23 09:31 sobbing NSAIDS (Non-Steroidal AdvReac GI Unverified 07/02/23 09:31 Anti-Inflamma General Stated Complaint: GenMedical BHANU: 3 Review of Systems All systems reviewed & are unremarkable except as noted in HPI and below Exam Narrative Exam Narrative: 1.Const: Well-nourished, Well-developed, appearing stated age 2.Eyes: PERRL, no conjunctival injection, and symmetrical lids. 3.ENT: Atraumatic external nose and ears. Moist MM. Neck: Symmetric, trachea midline, No thyromegaly. Mild erythema in the posterior oropharynx. No tonsillar enlargement. Uvula is midline. No evidence peritonsillar abscess. No difficulty can drawling secretions. No evidence of angioedema. Minimal bilateral cervical lymphadenopathy, slightly worse on the right than the left. No dental abscesses noted. No evidence of Ludewig's angina. 4.CVS: +S1/S2, No murmurs or gallops. Peripheral pulses 2+ and equal in all extremities. Brisk capillary refill in all extremities. 5.RESP: Unlabored respiratory effort. Clear to auscultation bilaterally. No wheezes rales or rhonchi 6.GI: Soft, Nontender/Nondistended, No hepatosplenomegaly. No guarding or rebound. 7.MSK: Normocephalic/Atraumatic, Extremities w/o deformity or ttp No cyanosis or clubbing, Normal movement of all extremities 8.Skin: Warm, Dry. No rashes or lesions. 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 Sensation grossly intact, no focal neurologic deficits. 10.Psych: (AAO) x3. Appropriate mood and affect Course Vital Signs Vital signs: Vital Signs Temperature 36.4 C L 07/02/23 09:28 Pulse 77 07/02/23 09:28 Respiratory Rate 18 07/02/23 09:28 Blood Pressure 114/78 07/02/23 09:28 Pulse Oximetry 97 07/02/23 09:28 Temperature 36.4 C L 07/02/23 09:32 Temperature Source Temporal Artery Scan 07/02/23 09:32 Pulse 77 07/02/23 09:32 Respiratory Rate 18 07/02/23 09:32 Respiratory Effort Normal, Non-Labored 07/02/23 09:42 Respiratory Depth Normal 07/02/23 09:42 Respiratory Pattern Normal 07/02/23 09:42 Blood Pressure 114/78 07/02/23 09:32 Blood Pressure Position Sitting 07/02/23 09:32 Pulse Oximetry 97 07/02/23 09:32 Oxygen Delivery Method Room Air 07/02/23 09:32 Oxygen Flow Rate 0 07/02/23 09:32 Pain Level 2 07/02/23 10:18 Lab/Test Results Lab/Test Results: 07/02/23 10:09 Tonsil - Not Specified Group A Streptococcus Culture - Pending Laboratory Tests Range/Units 07/02/23 07/02/23 09:34 10:16 COVID-19 Source Nasopharynx SARS-CoV-2 (PCR) (Negative) Negative Monoscreen (Negative) Negative Influenza Type A (PCR) (Negative) Negative Influenza Type B (PCR) (Negative) Negative RSV (PCR) (Negative) Negative POC Strep Test-ANGEL(Rapid) Start: 07/02/23 09:37 Freq: .Rapid Strep Test Status: Active Protocol: Document 07/02/23 10:08 NOHEMI (Rec: 07/02/23 10:08 NOHEMI [id number]) Strep test-ANGEL(Rapid)-POC POC-Strep test-ANGEL (Rapid) Negative POC-Strep test-ANGEL (Rapid) Negative Medical Decision Making 42-year-old female with a past medical history of thyroid nodules previous brain aneurysm, depression, PTSD, who presents today for evaluation of sore throat. Patient states that she has had a sore throat for the last 3 days. She has had a mild cough. Occasional fever. She admits to mild pain with swallowing and eating. Patient is regularly followed by [facility] for her thyroid nodules. No other complaints at this time. She has taken NSAIDs without significant improvement. No difficulty speaking. No difficulty controlling secretions. Physical exam demonstrates mild erythema in the posterior oropharynx. No tonsillar exudate, no tonsillar enlargement. Mild to moderate erythema in the posterior oropharynx. Mild cervical lymphadenopathy bilaterally slightly worse on the right than the left. No evidence of Ludewig's angina. No meningeal signs. No stridor. No hot potato voice. No signs of difficulty controlling se cretions. No nuchal rigidity. No other abnormalities. Physical exam is concerning for pharyngitis, mono is also on the differential. Strep is also obviously of concern. With no signs of airway compromise, I do not see an indication for emergent CT scan. However with her previous thyroid nodules I did discuss further ultrasound imaging with the patient, she is requesting ultrasonography at this time. We will further evaluate her thyroid with this. However on exam I do not see any evidence of mass or lesion that is causing oropharyngeal compromise or other significant compromise. We will give NSAIDs, monitor closely and reassess. 2 PM Laboratory workup demonstrates a negative COVID, flu, RSV, Monospot screen, and strep testing. No indication for antibiotics at this time. Suspect viral etiology. Chest x-ray is negative for any evidence of pneumonia or other abnormalities. Ultrasound of the thyroid neck demonstrates lymphadenopathy bilaterally slightly worse on the right than the left, thyroid nodules are small, and do not meet criterion for additional biopsy. Patient is otherwise stable. Will give a dose of Decadron with 8 mg here, and 4 additional milligrams at home as needed tomorrow if symptoms persist (initial dosing was for 12 mg however patient requested reduced dose now and a small dose tomorrow.) Recommend continued NSAIDs at home. Discussed red flags which to return. Suspect viral pharyngitis. At this time no evidence of peritonsillar abscess, Ludewig's angina, tonsillitis, or other significant acute life-threatening etiology based on current clinical assessment and exam and history. I have extensively reviewed the treatment plan and discharge instructions with the patient. I have addressed all patient concerns at this time. The patient was made aware of what symptoms to monitor for that would warrant a return to the emergency department. Discussed the plan with the patient, they demonstrate verbal understanding and agreement with our assessment and plan at this time. The documentation in this chart was dictated using Haier dictation software. Please excuse any dictation errors. FINDINGS: 2 views: Heart size is normal. The mediastinum is not widened. Lungs are clear. No infiltrates nor pleural effusions. IMPRESSION: No acute pulmonary findings. FINDINGS: Both thyroid lobes exhibit upper normal size. There are bilateral nodules. RIGHT THYROID LOBE: Measures 1.8 cm AP x 1.6 cm wide x 4.8 cm craniocaudal There is a dominant nodule in the mid right lobe which measures 1.7 x 0.9 x 1.1 cm. Classification of this nodule is as follows; Composition: Mixed solid cystic-1 point Echogenicity: Solid part of this nodule is relatively isoechoic to surrounding parenchyma-1 point Shape: Wider than taller-0 points Margin: Find-0 points Echogenic Foci: Noted-1 point Total Points for this nodule: 3 ACR Ti-Rads Category: TR3 This nodule can be followed ISTHMUS: Normal thickness. There are no nodules in the isthmus. LEFT THYROID LOBE: Measures 1.8 cm AP x 1.6 wide x 4.8 cm craniocaudal Multiple nodules noted in the left lobe. The 2 largest are discussed here: Nodule #1 this is at the midpole level of the left lobe. Size: Measures 1.1 x 0.7 x 1.0 cm Composition: Solid-2 points Echogenicity: Hypoechoic compared to surrounding parenchyma-2 points Shape: Wider than taller in the transverse plane-0 points Margin: Smooth-0 points Echogenic Foci: None-0 points Total points for this nodule: 4 ACR Ti-Rads Category: 4 This nodule can be followed as it measures less than 1.5 cm Nodule #2 . This nodule is located inferiorly in the left lobe. Size: Measures 1.2 x 1.1 x 1.3 cm Composition: Solid-2 points Echogenicity: Isoechoic-1 point Shape: Wider than taller in the transverse plane-0 points Margin: Irregular-2 points Echogenic Foci: None-0 points Total Points for this nodule: 5 ACR Ti-Rads Category: 4 This nodule can be followed as it measures less than 1.5 cm. LYMPH NODES: There are multiple small lymph nodes in both sides the neck. There is an enlarged lymph node measuring 3.8 x 0.7 x 1.2 cm. This corresponds to a painful area in the right-side of the neck. IMPRESSION: 1. Bilateral thyroid nodules as described above. Graded as above, none of which presently require ultrasound-guided FNA but which require appropriate follow-up repeat ultrasound in 1 year 2. There are multiple slightly enlarged lymph nodes in both sides the neck. 3. Largest lymph node is in the right-side of the neck corresponding to this patient's area of pain and this node measures 3.8 x 1.2 x 0.7 cm. Apparently this patient has pharyngitis Called by myself to ER provider. 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-followed yearly by neurosurgery at [facility]-observed, low risk current status Gillette's palsy (Acute) 2018-resolved Bronchitis with bronchospasm (Acute) Associated with [id number] apart from acute infection Personal history of nicotine dependence (Acute) 08/2021- 1/2 ppd, about 15 pk yr 08/2021-quit Multinodular thyroid (Acute) 2018- [facility] endocrine - Depression with anxiety (Acute) 10/2021-be associated with panic attack Migraines (Chronic) TMJ dysfunction (Acute) PTSD (post-traumatic stress disorder) (Acute) Aneurysm (Acute) Exposure to bat without known bite (Acute) 2020-possible exposure to bat in house treated with rabies vaccine and immunoglobulin COVID-19 (Acute) 05/2021 URI/bronchitis 10/2021-URI symptoms but triggering anxiety Medical History Breast abscess recurrent Cuboid fracture left Supraumbilical hernia Anxiety Asthma Depression Surgical History Tubal ligation status History of hernia repair (~05/28/14) umbilical H/O dilation and curettage (~07/22/09) History of excision of mass (~07/15/06) paratubal cysts, excision chronic mastitis right breast- 2015 H/O laparoscopy (~07/22/09) cholecystectomy Family History Mother Depression Father , 55 Kidney problem Brother , 27 Depression Son Asthma Son No problems noted. Social History (Reviewed 07/02/23 @ 15:37 by JACQUELIN Masters Smoking/Tobacco Use Status: Former Tobacco Use Quit status: considering quitting Second Hand Exposure: Yes Smoking risk assessment performed?: Yes Alcohol Intake: never Drug use: Never Substance use type: does not use Caregiver/Support person: No Household members: children Housing: apartment Do you need help understanding health information?: Never Pets and animals: Yes Pets and animals: cat(s) and hamster(s) Sexually active: No Do you think of yourself as: straight/heterosexual Current gender identity: female What is your relationship status?: never How often do you talk on the phone with friends or family?: decline to answer How often do you get together with friends or relatives?: decline to answer How often do you attend pentecostalism or christian services?: decline to answer Do you belong to any clubs or organized social groups?: decline to answer Panel score (0-1 are the most socially isolated patients): 0 Seatbelt use: always Helmet use: Yes Helmet use: always Drive intox or ride w/intox medical driver: No Do you feel safe at home: Yes Do you feel safe in your relationship?: Yes Discharge Plan Disposition Patient Disposition: Home Discharge Details Clinical Impression: Lymphadenopathy, Pharyngitis Primary Care Provider: Baron Hobson ED Provider: Wilfred Martinez Home Meds and New Rx's Prescriptions: No Action albuterol sulfate [ProAir HFA] 90 mcg/actuation HFA aerosol inhaler 2 puff inhalation Q6H PRN (Reason: shortness of breath or wheezing) Qty: 6.7 0RF gmcgyqzi-lvpn-oflro-oreg-capry 100 mg-150 mg- 50 mg-150 mg capsule 1 cap PO DAILY cholecalciferol (vitamin D3) 25 mcg (1,000 unit) capsule 25 mcg PO DAILY multivitamin Tablet 1 tab PO DAILY vitamin B complex [B Complex-Vitamin B12] Tablet 1 tab PO DAILY lavender oil Oil 1 applic miscellaneous BID-QID PRN epinephrine [EpiPen 2-Sabas] 0.3 mg/0.3 mL auto-injector 0.3 mg IM ONCE Rx Instructions: as a single dose; may repeat once cyclobenzaprine 10 mg tablet 10 mg PO PRN PRN Patient Comments: TAKE ONE TABLET BY MOUTH THREE TIMES A DAY NEEDED FOR MUSCLE SPASM. USE SPARINGLY Discharge Instructions Instructions: Pharyngitis (ED) Additional Instructions: At this time your chest x-ray is clear and shows no evidence of pneumonia on review by the radiologist. The ultrasound of your neck shows notable stability for all of your thyroid nodules. You do have some lymph nodes which are secondary to the current mild throat infection that you have. Thankfully your strep test is negative, and there is no evidence of bacterial pharyngitis. Your symptoms are likely from a virus. COVID flu and RSV testing was negative. [place] testing was negative. I suspect it is one of the other types of viruses that is causing this. You have been given a dose of steroids which will help with the sore throat and the lymph node pain. Please continue to take 1000 mg of Tylenol every 6 hours as needed for pain. If you notice any worsening of your symptoms, or any new symptoms such as vomiting, diarrhea, fever, chills, shortness of breath, chest pain, numbness, weakness, or fainting , please return immediately to the emergency department for reevaluation. Please follow up with your primary care provider as soon as possible for reassessment and reevaluation. As always, it was a pleasure participating in your medical care today. Referrals: Baron Hobson PA [Primary Care Provider] - Discharge Data Discharge Date/Time-TO BE ENTERED AT DEPARTURE: 07/02/23 11:32
[2023-07-02] MEDS: Dexamethasone 4 MG TAB 12 MG PO (11:25)
== END 2023-07-02 11:32 | disposition home or self-care (01) ==
PROVIDERS: Emergency Provider Student in an Organized Health Care Education/Training Program; PCP Physician Assistant Medical
DX: J02.9 Acute pharyngitis, unspecified (principal); R59.1 Generalized enlarged lymph nodes; Z11.52 Encounter for screening for COVID-19; Z87.891 Personal history of nicotine dependence
CPT/HCPCS: 87637; 87880; 99285; 71046; 76536; 86308; 87081; 99284; J8540

== ENCOUNTER 2023-07-26 01:13 | Outpatient (CLI) | payer MEDICARE, MEDICAID, SELFPAY ==
[2023-08-02 15:36] LABS: Dexamethasone Suppression <1.0 ug/dL (See Note)
== END 2023-07-26 01:14 | disposition home or self-care (01) ==
LOC: LBO 01:13
PROVIDERS: PCP Physician Assistant Medical; Visit Provider Physician Assistant Medical
DX: M79.7 Fibromyalgia (principal)
CPT/HCPCS: 36415; 82533; 83036

== ENCOUNTER → 2023-09-23 04:44 | Outpatient (CLI) | payer MEDICARE, MEDICAID, SELFPAY ==
--- NOTE | 2023-09-23 11:11 | DI.RAD_ITS ---
Exam(s) XR HIP LT COMPLETE AP PELVIS EXAM: XR HIP LT COMPLETE AP PELVIS CLINICAL HISTORY: pain left hip joint m25.552. TECHNIQUE: 2D digital imaging was performed of the left hip. Three views were obtained. AP pelvis and lateral left hip views were obtained. COMPARISON: No exams were available for comparison FINDINGS: BONES: No acute fracture is present. No bony destructive lesion is seen. JOINTS: No dislocation present. The joint spaces are well maintained. SOFT TISSUE: Normal. IMPRESSION: Unremarkable radiographs of the left hip. Unremarkable radiographs of the pelvis DATA REPOSITORY: RADIATION DOSE DELIVERED:
--- NOTE | 2023-09-23 11:11 | DI.RAD_ITS ---
Exam(s) XR ANKLE LT COMPLETE EXAM: XR ANKLE LT COMPLETE CLINICAL HISTORY: PAIN LEFT ANKLE JOINT M25.572 TECHNIQUE: 2D digital imaging was performed of the left ankle. Three images were obtained. AP, lat eral and oblique views were obtained. COMPARISON: CR XR ANKLE LT COMPLETE from 04/30/2018 FINDINGS: BONES: No acute fracture is present. No bony destructive lesion is seen. There is a small plantar leticia caneal spur. There is a small enthesophyte at the posterior calcaneus. JOINTS:The ankle mortise is normally aligned. SOFT TISSUE: Normal. IMPRESSION: Calcaneal spurs. DATA REPOSITORY: RADIATION DOSE DELIVERED:
== END ==
PROVIDERS: PCP Physician Assistant Medical; Visit Provider Physician Assistant Medical
DX: M25.572 Pain in left ankle and joints of left foot (principal); M25.552 Pain in left hip
CPT/HCPCS: 73502; 73610

== ENCOUNTER 2023-10-21 09:28 | Emergency (ER) | payer MEDICARE, MEDICAID, SELFPAY ==
[2023-10-21 09:38] VITALS: BP 125/69; PULSE 68; RESP 20; TEMP 36.7; O2SAT 95
--- NOTE | 2023-10-21 09:45 | DI.RAD_ITS ---
Exam(s) XR HAND LT COMPLETE EXAM: XR HAND LT COMPLETE CLINICAL HISTORY: pain. TECHNIQUE: 2D digital imaging was performed. COMPARISON: No exams were available for comparison FINDINGS: 4 views There is no evidence of acute fracture nor subluxations. Bone density is normal. No osseous lesions . No erosions. No joint space narrowing. Also no degenerative changes at the level the carpal row bones. IMPRESSION: No acute osseous findings in the hand. DATA REPOSITORY: RADIATION DOSE DELIVERED:
--- NOTE | 2023-10-21 09:55 | ED.GENADUL_ITS ---
Discharge Plan Disposition Patient Disposition: Home Condition: Stable Discharge Details Clinical Impression: Arthralgia of hand, left Primary Care Provider: Baron Hobson ED Provider: Lul León Home Meds and New Rx's Prescriptions: New dexamethasone 4 mg tablet 10 mg PO DAILY 1 Days Qty: 3 0RF Continued albuterol sulfate [ProAir HFA] 90 mcg/actuation HFA aerosol inhaler 2 puff inhalation Q6H PRN (Reason: shortness of breath or wheezing) Qty: 6.7 0RF qalluaby-gcyt-gyysn-oreg-capry 100 mg-150 mg- 50 mg-150 mg capsule 1 cap PO DAILY cholecalciferol (vitamin D3) 25 mcg (1,000 unit) capsule 25 mcg PO DAILY multivitamin Tablet 1 tab PO DAILY vitamin B complex [B Complex-Vitamin B12] Tablet 1 tab PO DAILY lavender oil Oil 1 applic miscellaneous BID-QID PRN epinephrine [EpiPen 2-Sabas] 0.3 mg/0.3 mL auto-injector 0.3 mg IM ONCE Rx Instructions: as a single dose; may repeat once cyclobenzaprine 10 mg tablet 10 mg PO PRN PRN Patient Comments: TAKE ONE TABLET BY MOUTH THREE TIMES A DAY NEEDED FOR MUSCLE SPASM. USE SPARINGLY Discharge Instructions Additional Instructions: Your x-ray and labs did not show any concerning finding Follow-up with your primary care provider within 1 to 2 weeks Feel more ill or have any symptoms such as high fevers return to the emergency department for reevaluation HPI General Mode of arrival: ambulatory . Date/Time Provider Initiated Documentation: 10/21/23 09:29 . Limitations to Documentation: no limitations . Information obtained by: patient . History of Present Illness 43 year old F presents to the emergency department with the chief complaint of left hand discomfort, described as moderate, Quality is described as aching, Patient started experiencing this day(s) (3) and it has been constant. No relieving factors improve symptom(s), No exacerbating factors reported . Patient notes no other symptoms.. Patient did receive the following treatments prior to arrival, none Related Data Home Medications Medication Instructions Recorded Confirmed epinephrine 0.3 mg/0.3 mL 0.3 mg IM ONCE 07/25/21 10/21/23 injection, auto-injector (EpiPen 2-Sabas) albuterol sulfate 90 mcg/actuation 2 puff inhalation Q6H PRN 10/14/21 10/21/23 aerosol inhaler (ProAir HFA) shortness of breath or wheezing #6.7 grams cholecalciferol (vitamin D3) 25 25 mcg PO DAILY 08/30/22 10/21/23 mcg (1,000 unit) capsule multivitamin 1 tab PO DAILY 08/30/22 10/21/23 turmeric 100 mg-germán 150 1 cap PO DAILY 08/30/22 10/21/23 mg-olive 50 mg-oreg 150 mg-capryl capsule cyclobenzaprine 10 mg tablet 10 mg PO PRN PRN 09/29/22 10/21/23 lavender oil 1 applic miscellaneous BID-QID PRN 10/04/22 10/21/23 vitamin B complex (B 1 tab PO DAILY 10/04/22 10/21/23 Complex-Vitamin B12 tablet) dexamethasone 4 mg tablet 10 mg (2.5 x 4 mg) PO DAILY 1 day 10/21/23 #3 tabs Previous Rx's Medication Instructions Recorded albuterol sulfate 90 mcg/actuation 2 puff inhalation Q6H PRN 10/14/21 aerosol inhaler (ProAir HFA) shortness of breath or wheezing #6.7 grams dexamethasone 4 mg tablet 10 mg (2.5 x 4 mg) PO DAILY 1 day 10/21/23 #3 tabs Allergies Allergy/AdvReac Type Severity Reaction Status Date / Time amoxicillin Allergy Severe Anaphylaxis Unverified 10/21/23 10:29 varenicline [From Chantix] Allergy Severe Other (See Unverified 10/21/23 10:29 Comment) bupropion [From Wellbutrin] Allergy Intermediate Unknown Unverified 10/21/23 10:29 fluoxetine [From Prozac] Allergy Intermediate depression Unverified 10/21/23 10:29 sertraline [From Zoloft] Allergy Intermediate depression Unverified 10/21/23 10:29 codeine Allergy Other (See Unverified 10/21/23 10:29 Comment) aspirin AdvReac Severe Anxiety, Unverified 10/21/23 10:29 sobbing NSAIDS (Non-Steroidal AdvReac GI Unverified 10/21/23 10:29 Anti-Inflamma General Stated Complaint: Orthopedic BHANU: 3 Review of Systems All systems reviewed & are unremarkable except as noted in HPI and below Constitutional Constitutional: Denies chills, Denies fever(s) and Denies weakness Cardiovascular Cardiovascular: Denies chest pain and Denies dyspnea Respiratory Respiratory: Denies cough and Denies dyspnea Gastrointestinal Gastrointestinal: Denies abdominal pain, Denies nausea and Denies vomiting Musculoskeletal Musculoskeletal: Denies joint swelling Neurologic Neurologic: Denies weakness Exam Const General: no acute distress Orientation: alert HENLA Head: normal to inspection Ears: external ears normal General nose exam: external nose normal Mouth: moist mucous membranes Eyes General: appearance normal, both eyes and all related structures Neck Neck: normal visual inspection Resp Effort & Inspection: normal respiratory effort and able to speak in complete sentences Cardio Rate: regular rate Skin General skin exam: no rashes or lesions noted Neuro General: patient alert and patient oriented x3 Extrem General: full ROM and capillary refill normal Psych Mental Status: mental status grossly normal Course Vital Signs Vital signs: Vital Signs Temperature 36.7 C 10/21/23 09:38 Pulse 68 10/21/23 09:38 Respiratory Rate 20 10/21/23 09:38 Blood Pressure 125/69 10/21/23 09:38 Pulse Oximetry 95 10/21/23 09:38 Temperature 36.7 C 10/21/23 09:38 Temperature Source Temporal Artery Scan 10/21/23 09:38 Pulse 68 10/21/23 09:38 Respiratory Rate 20 10/21/23 09:38 Respiratory Effort Normal, Non-Labored 10/21/23 09:45 Blood Pressure 125/69 10/21/23 09:38 Blood Pressure Position Supine 10/21/23 09:38 Pulse Oximetry 95 10/21/23 09:38 Oxygen Delivery Method Room Air 10/21/23 09:38 Oxygen Flow Rate 0 10/21/23 09:38 Medical Decision Making 43-year-old female history of brain aneurysm, depression, who comes in with complaints of 3 days of pain in her left hand without known trauma. Denies any fevers or chills. No arm swelling. She says that her posterior and over the fifth and fourth digits primarily hurt and she says that she has to flex her fingers to keep her from hurting and when she straightens them and increase the pain. She has no weakness,. She is alert and ambulatory on arrival with a normal gait. She is holding her fingers in flexion but is able to extend them, there is no swelling of the hand, she has intact sensation, normal pulses, normal cap refill. She has normal range of motion of the wrist. She says that she has had similar episodes in the past and was diagnosed with tendinitis and does well with dexamethasone and low-dose Flexeril. Will check a metabolic panel to evaluate for electrolyte abnormalities as a cause of possible spasm. Obtain x-rays though unlikely to have fracture. No findings on exam to suggest infectious etiology given lack of erythema, warmth or swelling. Patient stable, labs and imaging unremarkable. Has had some improvement with dexamethasone. She states that Flexeril is also helped in the past which she has at home. She is stable for discharge, advised to follow-up with her PCP and return precautions given Differential Diagnosis Differential Diagnosis: Carpopedal spasm, tendinitis, carpal tunnel Imaging Data Radiologic Study: Attestation: I personally reviewed and interpreted this imaging study as follows: Imaging: X-Ray Radiologist's impression: No acute findings Lab Data Lab results reviewed: Yes I reviewed the patient's lab results. 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 of 2021-followed yearly by neurosurgery at [facility]-observed, low risk current status Gillette's palsy (Acute) 2018-resolved Bronchitis with bronchospasm (Acute) Associated with [id number] apart from acute infection Personal history of nicotine dependence (Acute) 08/2021- 1 ppd, about 15 pk yr 08/2021-quit Multinodular thyroid (Acute) 2018- US at [facility] followed by [facility] endocrine - Depression with anxiety (Acute) 10/2021-be associated with panic attack Migraines (Chronic) TMJ dysfunction (Acute) PTSD (post-traumatic stress disorder) (Acute) Aneurysm (Acute) Exposure to bat without known bite (Acute) 2020-possible exposure to bat in house treated with rabies vaccine and immunoglobulin COVID-19 (Acute) 05/2021 URI/bronchitis 10/2021-URI symptoms but triggering anxiety Medical History Breast abscess recurrent Cuboid fracture left Supraumbilical hernia Anxiety Asthma Depression Surgical History Tubal ligation status History of hernia repair (~05/28/14) umbilical H/O dilation and curettage (~07/22/09) History of excision of mass (~07/15/06) paratubal cysts, excision chronic mastitis right breast- 2014 H/O laparoscopy (~07/22/09) cholecystectomy Family History Mother Depression Father , 55 Kidney problem Brother , 27 Depression Son Asthma Son No problems noted. Social History Smoking/Tobacco Use Status: Former Tobacco Use Quit status: considering quitting Second Hand Exposure: Yes Smoking risk assessment performed?: Yes Alcohol Intake: never Drug use: Occasionally Substance use type: marijuana Details: CBD gummies Caregiver/Support person: No Household members: children Housing: apartment Do you need help understanding health information?: Never Pets and animals: Yes Pets and animals: cat(s) and hamster(s) Sexually active: No Do you think of yourself as: straight/heterosexual Current gender identity: female What is your relationship status?: never How often do you talk on the phone with friends or family?: decline to answer How often do you get together with friends or relatives?: decline to answer How often do you attend taoist or religion services?: decline to answer Do you belong to any clubs or organized social groups?: decline to answer Panel score (0-1 are the most socially isolated patients): 0 Seatbelt use: always Helmet use: Yes Helmet use: always Drive intox or ride w/intox truck driver 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
[2023-10-21] MEDS: Dexamethasone 4 MG TAB 10 MG PO (10:00)
[2023-10-21 10:25] LABS: Abs Immature Grans 0.01 10^3/uL (0.0-0.06); Absolute Basophil Count 0.05 10^3/uL (0.0-0.2); Absolute Eosinophil Count 0.34 10^3/uL (0.0-0.7); Absolute Lymphocyte Count 2.61 10^3/uL (1.2-3.4); Absolute Monocyte Count 0.52 10^3/uL (0.1-0.8); Absolute Neutrophil Count 3.42 10^3/uL (1.2-6.7); Basophils % 0.7 %; Eosinophils % 4.9 %; HCT 38.4 % (36.0-46.0); Immature Grans % 0.1 %; Lymphocytes % 37.6 %; MCH 30.2 pg (27.0-33.0); MCHC 33.9 % (32.0-36.0); MCV 89 fL (80-95); MPV 8.8 fL (8.0-11.0); Monocytes % 7.5 %; Neutrophils % 49.2 %; Platelet Count 252 10^3/uL (130-400); RDW 12.5 % (11.7-14.6); RDW-SD 40.3 fL; WBC 6.95 10^3/uL (4.4-10.8)
[2023-10-21 10:32] LABS: ALT 46 U/L (14-59); AST 27 U/L (15-37); Albumin 3.3 g/dL (3.4-5.0); Alkaline Phosphatase 86 U/L (46-116); Anion Gap 7.3 mmol/L (3-11); BUN 7 mg/dL (7-18); Bilirubin, Total 0.5 mg/dL (0.2-1.0); CO2 26.7 mmol/L (21.0-32.0); CREATININE 0.8 mg/dL (0.55-1.02); Calcium 8.7 mg/dL (8.5-10.1); Chloride 105 mmol/L (98-107); Estimated GFR 94.87 (mL/min/1.73m2); Glucose 102 mg/dL (74-106); Magnesium 1.9 mg/dL (1.8-2.4); Potassium 3.8 mmol/L (3.5-5.1); Sodium 139 mmol/L (136-145)
== END 2023-10-21 11:30 | disposition home or self-care (01) ==
PROVIDERS: Emergency Provider Emergency Medicine; PCP Physician Assistant Medical
DX: M25.542 Pain in joints of left hand (principal)
CPT/HCPCS: 80053; 99283; 73130; 83735; 85025; J8540

== ENCOUNTER 2023-11-12 11:39 | Emergency (ER) | payer MEDICARE, MEDICAID, SELFPAY ==
[2023-11-12 11:42] VITALS: BP 134/71; PULSE 115; RESP 20; TEMP 36.5; O2SAT 97
[2023-11-12 11:59] VITALS: BP 134/71; PULSE 115; RESP 20; TEMP 36.5; O2SAT 97
--- NOTE | 2023-11-12 12:00 | RT.EKG_ITS ---
APPROVED REPORT Exam: Resting ECG Reason for Exam: Tachycardia, Cramping Patient Location: E HR:98 bpm ECG Measurements Heart Rate 98 AXIS WI 167 P 28 QRSd 86 QRS 17 QT 350 T 23 QTc 446 Conclusion Sinus rhythm...normal P axis, V-rate 60- 99 Low voltage, precordial leads...precordial leads <1.0mV sinus rhythm, normal axis, normal intervals, non ischemic
[2023-11-12 12:25] LABS: Abs Immature Grans 0.03 10^3/uL (0.0-0.06); Absolute Basophil Count 0.04 10^3/uL (0.0-0.2); Absolute Eosinophil Count 0.01 10^3/uL (0.0-0.7); Absolute Lymphocyte Count 0.98 10^3/uL (1.2-3.4); Absolute Monocyte Count 0.08 10^3/uL (0.1-0.8); Basophils % 0.5 %; Eosinophils % 0.1 %; HGB 14.8 g/dL (11.2-15.7); Immature Grans % 0.4 %; Lymphocytes % 12.7 %; MCH 30.6 pg (27.0-33.0); MCHC 35.2 % (32.0-36.0); MCV 87 fL (80-95); MPV 8.9 fL (8.0-11.0); Neutrophils % 85.3 %; Platelet Count 340 10^3/uL (130-400); RBC 4.84 10^6/uL (3.93-5.22); RDW 12.4 % (11.7-14.6); RDW-SD 39.5 fL; WBC 7.74 10^3/uL (4.4-10.8)
--- NOTE | 2023-11-12 12:39 | W.ED.GENAD ---
Discharge Plan Disposition Patient Disposition: Home Condition: Stable Discharge Details Clinical Impression: Arthralgia Primary Care Provider: Baron Hobson ED Provider: Mariela Barnett Home Meds and New Rx's Prescriptions: Continued albuterol sulfate [ProAir HFA] 90 mcg/actuation HFA aerosol inhaler 2 puff inhalation Q6H PRN (Reason: shortness of breath or wheezing) Qty: 6.7 0RF cholecalciferol (vitamin D3) 25 mcg (1,000 unit) capsule 25 mcg PO DAILY lavender oil Oil 1 applic miscellaneous BID-QID PRN epinephrine [EpiPen 2-Sabas] 0.3 mg/0.3 mL auto-injector 0.3 mg IM ONCE Rx Instructions: as a single dose; may repeat once cyclobenzaprine 10 mg tablet 10 mg PO PRN PRN Patient Comments: TAKE ONE TABLET BY MOUTH THREE TIMES A DAY NEEDED FOR MUSCLE SPASM. USE SPARINGLY dexamethasone 4 mg tablet 12 mg PO DAILY PRN Patient Comments: TAKE THREE TABLETS BY MOUTH EVERY DAY FOR 1 DAYS NEEDED furosemide 20 mg tablet 20 mg PO DAILY PRN Patient Comments: TAKE ONE TABLET BY MOUTH EVERY DAY NEEDED FOR SWELLING Discharge Instructions Instructions: Swelling, Joint Pain Additional Instructions: At this time no evidence of infection, I do suspect that you have arthritis or arthralgia which is pain in her joints. Please follow-up with your primary care provider to discuss this. Continue to take your previously scheduled medications as directed. Follow up with primary care provider in 3-5 days. Return to ED sooner if any worsening or concerns. You may apply topical Voltaren cream or diclofenac which you can get [id number]. Thank you for allowing us to care for you today. Referrals: Baron Hobson PA [Primary Care Provider] - 5 days HPI General Mode of arrival: ambulatory. Date/Time Provider Initiated Documentation: 11/12/23 11:53. Limitations to Documentation: no limitations. Information obtained by: patient, RN notes reviewed and old records reviewed. HPI Narrative: 43-year-old female presents to the ER with chief complaint of muscle spasms left arm and left leg, lower back stiffness after taking furosemide on Saturday for bilateral lower extremity edema. She does take Lasix as needed as needed for edema. She is slightly tachycardic upon arrival. Other past medical history includes anxiety asthma depression, Gillette's palsy, PTSD, brain aneurysm. Related Data Home Medications Medication Instructions Recorded Confirmed epinephrine 0.3 mg/0.3 mL 0.3 mg IM ONCE 07/25/21 11/12/23 injection, auto-injector (EpiPen 2-Sabas) albuterol sulfate 90 mcg/actuation 2 puff inhalation Q6H PRN 10/14/21 11/12/23 aerosol inhaler (ProAir HFA) shortness of breath or wheezing #6.7 grams cholecalciferol (vitamin D3) 25 25 mcg PO DAILY 08/30/22 11/12/23 mcg (1,000 unit) capsule cyclobenzaprine 10 mg tablet 10 mg PO PRN PRN 09/29/22 11/12/23 lavender oil 1 applic miscellaneous BID-QID PRN 10/04/22 11/12/23 dexamethasone 4 mg tablet 12 mg PO DAILY PRN 11/12/23 11/12/23 furosemide 20 mg tablet 20 mg PO DAILY PRN 11/12/23 11/12/23 Previous Rx's Medication Instructions Recorded albuterol sulfate 90 mcg/actuation 2 puff inhalation Q6H PRN 10/14/21 aerosol inhaler (ProAir HFA) shortness of breath or wheezing #6.7 grams Allergies Allergy/AdvReac Type Severity Reaction Status Date / Time amoxicillin Allergy Severe Anaphylaxis Unverified 11/12/23 11:48 varenicline [From Chantix] Allergy Severe Other (See Unverified 11/12/23 11:48 Comment) bupropion [From Wellbutrin] Allergy Intermediate Unknown Unverified 11/12/23 11:48 fluoxetine [From Prozac] Allergy Intermediate depression Unverified 11/12/23 11:48 sertraline [From Zoloft] Allergy Intermediate depression Unverified 11/12/23 11:48 codeine Allergy Other (See Unverified 11/12/23 11:48 Comment) aspirin AdvReac Severe Anxiety, Unverified 11/12/23 11:48 sobbing NSAIDS (Non-Steroidal AdvReac GI Unverified 11/12/23 11:48 Anti-Inflamma General Stated Complaint: GenMedical BHANU: 3 Review of Systems All systems reviewed & are unremarkable except as noted in HPI and below Musculoskeletal Musculoskeletal: Reports as per HPI, Reports back pain, Reports myalgias, Reports arthralgias, Reports joint swelling, Denies numbness and Reports stiffness Integumentary/Breasts Skin/Breast: Denies rash Neurologic Neurologic: Denies numbness Exam Narrative Exam Narrative: Constitutional: Alert and oriented x3. Appears stated age. Obese body habitus. Guarded, avoids eye contact, slow to respond. Does appear anxious initially. Head: Normocephalic, no trauma. Eyes: Pupils PERRL, Red reflex noted, EOM's intact. Eyelids symmetrical without lesions, discharge, or swelling. ENT: Bilateral TM's WNL, External ear normal to inspection, no mastoid TTP, swelling, or erythema, Nasal turbinates WNL, no nasal discharge. Normal dentition, Posterior pharynx WNL, no exudate. Chest: RRR, Normal S1, S2, distal pulses intact. Resp: Lungs clear to auscultation bilaterally, no wheezes, rales, or rhonchi. Abdomen: Soft, non-distended, Normoactive bowel sounds all 4 quads. Musculoskeletal: Normal gait, Moves all 4 extremities without difficulty. Nonpitting edema noted to bilateral lower extremities, she does have her left leg wrapped. Distal CMS intact. No obvious deformity or injuries noted. Skin: No suspicious rashes or lesions. Capillary refill less than 2 sec. Neurologic: Cranial nerves II-XII intact. Alert and oriented x 3. Motor: No deficits noted. Sensory: Intact bilaterally all 4 extremities. Hematologic/Lymphatic: No ecchymosis, no lymphadenopathy. Course Vital Signs Vital signs: Vital Signs Temperature 36.5 C 11/12/23 11:42 Pulse 115 H 11/12/23 11:42 Respiratory Rate 20 11/12/23 11:42 Blood Pressure 134/71 11/12/23 11:42 Pulse Oximetry 97 11/12/23 11:42 Temperature 36.5 C 11/12/23 11:59 Temperature Source Temporal Artery Scan 11/12/23 11:59 Pulse 115 H 11/12/23 11:59 Respiratory Rate 20 11/12/23 11:59 Respiratory Effort Normal, Non-Labored 11/12/23 11:47 Blood Pressure 134/71 11/12/23 11:59 Blood Pressure Position Sitting 11/12/23 11:59 Pulse Oximetry 97 11/12/23 11:59 Oxygen Delivery Method Room Air 11/12/23 11:59 Oxygen Flow Rate 0 11/12/23 11:59 Pain Level 4 11/12/23 11:59 Lab/Test Results Lab/Test Results: Laboratory Tests Range/Units 11/12/23 12:15 WBC (4.4-10.8) 10^3/uL 7.74 RBC (3.93-5.22) 10^6/uL 4.84 Hgb (11.2-15.7) g/dL 14.8 Hct (36.0-46.0) % 42.0 MCV (80-95) fL 87 MCH (27.0-33.0) pg 30.6 MCHC (32.0-36.0) % 35.2 RDW (11.7-14.6) % 12.4 Plt Count (130-400) 10^3/uL 340 MPV (8.0-11.0) fL 8.9 Immature Gran % % 0.4 Neutrophils % % 85.3 Lymphocytes % % 12.7 Monocytes % % 1.0 Eosinophils % % 0.1 Basophils % % 0.5 Nucleated RBC % (0.0-0.3) % 0.0 Absolute Neutrophils (1.2-6.7) 10^3/uL 6.60 Absolute Lymphocytes (1.2-3.4) 10^3/uL 0.98 L Absolute Monocytes (0.1-0.8) 10^3/uL 0.08 L Absolute Eosinophils (0.0-0.7) 10^3/uL 0.01 Absolute Basophils (0.0-0.2) 10^3/uL 0.04 Medical Decision Making 43-year-old female presents to the ER with chief complaint of muscle spasms left arm and left leg, lower back stiffness after taking furosemide on Saturday for bilateral lower extremity edema. She does take Lasix as needed as needed for edema. She is slightly tachycardic upon arrival. Other past medical history includes anxiety asthma depression, Gillette's palsy, PTSD, brain aneurysm. Patient is alert and oriented and at baseline at this time. Initial labs including CBC, CMP, troponin EKG ordered. Differential diagnosis includes electrolyte imbalance, anxiety, dehydration, arthritis exacerbation. On further questioning patient denies any nausea vomiting diarrhea, she does have multiple joint tenderness does have a history of arthritis. No significant erythema or swelling noted she does have her left ankle wrapped with a MOMO hose on it which she reports makes it feel better. She is been taking Tylenol with little to no relief. Normal saline 500 cc bolus ordered for tachycardia and possible dehydration. ESR added on. Using well reevaluate and have patient follow-up with PCP. Patient to be discharged home follow-up care for the skin or visit PCP. Patient is taking dexamethasone so steroids is not indicated at this time. Patient is allergic to NSAIDs has been taking Tylenol with little to no relief. At this time we will have patient continue take the medications as previously prescribed. Instructed to take diclofenac topical cream or Voltaren gel which she can get [id number]. Tick and Lyme panel added on. This text was generated using HEXIOation system, please disregard any oddities of phrase or misspellings. Lab Data Lab results reviewed: Yes I reviewed the patient's lab results. Labs: Laboratory Tests Range/Units 11/12/23 12:15 WBC (4.4-10.8) 10^3/uL 7.74 RBC (3.93-5.22) 10^6/uL 4.84 Hgb (11.2-15.7) g/dL 14.8 Hct (36.0-46.0) % 42.0 MCV (80-95) fL 87 MCH (27.0-33.0) pg 30.6 MCHC (32.0-36.0) % 35.2 RDW (11.7-14.6) % 12.4 Plt Count (130-400) 10^3/uL 340 MPV (8.0-11.0) fL 8.9 Immature Gran % % 0.4 Neutrophils % % 85.3 Lymphocytes % % 12.7 Monocytes % % 1.0 Eosinophils % % 0.1 Basophils % % 0.5 Nucleated RBC % (0.0-0.3) % 0.0 Absolute Neutrophils (1.2-6.7) 10^3/uL 6.60 Absolute Lymphocytes (1.2-3.4) 10^3/uL 0.98 L Absolute Monocytes (0.1-0.8) 10^3/uL 0.08 L Absolute Eosinophils (0.0-0.7) 10^3/uL 0.01 Absolute Basophils (0.0-0.2) 10^3/uL 0.04 Sodium (136-145) mmol/L 138 Potassium (3.5-5.1) mmol/L 4.0 Chloride (98-107) mmol/L 102 Carbon Dioxide (21.0-32.0) mmol/L 22.0 Anion Gap (3-11) mmol/L 14.0 H BUN (7-18) mg/dL 13 Creatinine (0.55-1.02) mg/dL 1.0 Est GFR (CKD-EPI 2020) (mL/min/1.73m2) 72.58 Glucose (74-106) mg/dL 144 H Calcium (8.5-10.1) mg/dL 9.6 Magnesium (1.8-2.4) mg/dL 2.0 Total Bilirubin (0.2-1.0) mg/dL 0.4 AST (15-37) U/L 32 ALT (14-59) U/L 60 H Alkaline Phosphatase (46-116) U/L 92 Troponin I (< or =60) ng/L < 50 Total Protein (6.4-8.2) g/dL 7.9 Albumin (3.4-5.0) g/dL 3.7 Quality:SDOH Health Related Social Needs: No Data to Display PFSH All Active Problems (Updated 11/12/23 @ 14:10 by Mariela Barnett NP) Arthralgia of hand, left (Acute) Internal derangement of left knee (Acute) DEPO MEDROL 10/04/20 Hyper-reflexia (Chronic) Arthralgia (Acute) Brain aneurysm (Acute) 2019, 3 mm, right ophthalmic artery, 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-no interval change as of 2021-followed yearly by neurosurgery at [facility]-observed, low risk current status Gillette's palsy (Acute) 2019-resolved Bronchitis with bronchospasm (Acute) Associated with [id number] apart from acute infection Personal history of nicotine dependence (Acute) 08/2021- 1 ppd, about 15 pk yr 08/2021-quit Multinodular thyroid (Acute) 2019- [facility] at [facility] by [facility] endocrine - Depression with anxiety (Acute) 10/2021-be associated with panic attack Migraines (Chronic) TMJ dysfunction (Acute) PTSD (post-traumatic stress disorder) (Acute) Aneurysm (Acute) Exposure to bat without known bite (Acute) 2020-possible exposure to bat in house treated with rabies vaccine and immunoglobulin COVID-19 (Acute) 05/2021 URI/bronchitis 10/2021-URI symptoms but triggering anxiety Medical History Breast abscess recurrent Cuboid fracture left Supraumbilical hernia Anxiety Asthma Depression Surgical History Tubal ligation status History of hernia repair (~05/28/14) umbilical H/O dilation and curettage (~07/22/09) History of excision of mass (~07/15/06) paratubal cysts, excision chronic mastitis right breast- 2014 H/O laparoscopy (~07/22/09) cholecystectomy Family History Mother Depression Father , 55 Kidney problem Brother , 27 Depression Son Asthma Son No problems noted. Social History Smoking/Tobacco Use Status: Former Tobacco Use Quit status: considering quitting Second Hand Exposure: Yes Smoking risk assessment performed?: Yes Alcohol Intake: never Drug use: Occasionally Substance use type: marijuana Details: CBD gummies Caregiver/Support person: No Household members: children Housing: apartment Do you need help understanding health information?: Never Pets and animals: Yes Pets and animals: cat(s) and hamster(s) Sexually active: No Do you think of yourself as: straight/heterosexual Current gender identity: female What is your relationship status?: never How often do you talk on the phone with friends or family?: decline to answer How often do you get together with friends or relatives?: decline to answer How often do you attend restorationism or methodist services?: decline to answer Do you belong to any clubs or organized social groups?: decline to answer Panel score (0-1 are the most socially isolated patients): 0 Seatbelt use: always Helmet use: Yes Helmet use: always Drive intox or ride w/intox spike driver: No Do you feel safe at home: Yes Do you feel safe in your relationship?: Yes
[2023-11-12 12:45] LABS: ALT 60 U/L (14-59); AST 32 U/L (15-37); Albumin 3.7 g/dL (3.4-5.0); Alkaline Phosphatase 92 U/L (46-116); BUN 13 mg/dL (7-18); Bilirubin, Total 0.4 mg/dL (0.2-1.0); Calcium 9.6 mg/dL (8.5-10.1); Chloride 102 mmol/L (98-107); Estimated GFR 72.58 (mL/min/1.73m2); Glucose 144 mg/dL (74-106); Sodium 138 mmol/L (136-145); Total Protein 7.9 g/dL (6.4-8.2)
[2023-11-12 12:46] LABS: Troponin I < 50 ng/L (< or =60)
[2023-11-12] MEDS: Normal Saline 500 ML IV (13:54)
--- NOTE | 2023-11-12 14:33 | NUR.NOTE ---
Referral faxed to [facility] PCP Baron Hobson, for ER follow up-joint pain and swelling in 1 week.
[2023-11-12 14:42] VITALS: BP 116/71; PULSE 97; RESP 16; O2SAT 98
[2023-11-12 14:57] LABS: Lab Add On Test DONE
[2023-11-12 15:02] LABS: ESR 27 mm/hr (0-20)
[2023-11-14 11:59] LABS: Lyme Ab w Rflx to Lyme Confirm Negative (Negative)
[2023-11-15 23:37] LABS: Anaplasma phagocytophilum Negative (Negative); B. miyamotoi PCR Negative (Negative); Babesia divergens/MO-1 Negative (Negative); Babesia duncani Negative (Negative); Babesia microti Negative (Negative); Ehrlichia chaffeensis Negative (Negative); Ehrlichia ewingii/canis Negative (Negative); Ehrlichia muris eauclairensis Negative (Negative)
== END 2023-11-12 14:44 | disposition home or self-care (01) ==
PROVIDERS: Emergency Provider Registered Nurse Emergency; PCP Physician Assistant Medical
DX: M19.09 Primary osteoarthritis, other specified site (principal); M62.838 Other muscle spasm; Z79.899 Other long term (current) drug therapy; Z87.891 Personal history of nicotine dependence
CPT/HCPCS: 80053; 85652; 87798; 93005; 99284; 83735; 84484; 85025; 86618; 93010; 99283

== ENCOUNTER 2023-11-28 15:12 | Outpatient (REF) | payer MEDICARE, MEDICAID, SELFPAY ==
[2023-11-28 16:00] LABS: Anion Gap 12.1 mmol/L (3-11); BUN 10 mg/dL (7-18); CO2 21.9 mmol/L (21.0-32.0); Chloride 105 mmol/L (98-107); Estimated GFR 72.58 (mL/min/1.73m2); Glucose 176 mg/dL (74-106); Magnesium 2.1 mg/dL (1.8-2.4); Potassium 4.1 mmol/L (3.5-5.1); Sodium 139 mmol/L (136-145)
== END 2023-11-28 15:13 | disposition home or self-care (01) ==
LOC: NCHCN 15:12
PROVIDERS: PCP Physician Assistant Medical; Visit Provider Physician Assistant Medical
DX: M79.7 Fibromyalgia (principal); R60.0 Localized edema; R79.89 Other specified abnormal findings of blood chemistry
CPT/HCPCS: 80048; 83735

== ENCOUNTER → 2023-12-17 01:34 | Outpatient (CLI) | payer MEDICARE, MEDICAID, SELFPAY ==
--- NOTE | 2023-12-17 | DI.RAD_ITS ---
Exam(s) XR THORACIC SPINE COMPLETE EXAM: XR THORACIC SPINE COMPLETE CLINICAL HISTORY: THORACIC SPINE PAIN,M54.6. TECHNIQUE: 2D digital imaging was performed. Three views. COMPARISON: No exams were available for comparison FINDINGS: BONES: There is no fracture or destructive lesion. The vertebral bodies and posterior elements are un remarkable. ALIGNMENT: Within normal limits. DISKS: Interverebral disc spaces are maintained. Small endplate osteophytes in the mid thoracic reg ion. SOFT TISSUE: Visualized lungs are clear. Heart size is normal. IMPRESSION: Mild degenerative changes. DATA REPOSITORY: RADIATION DOSE DELIVERED:
--- OUTSIDE RECORDS SUMMARY | 2023-12-17 01:43 | XMS_ITS | Encounter Summary ---
Author Organization [facility] [place] [address] Care Team Providers Care Canadian Bacon Tier Name Role Phone Baron Hobson Primary Care Provider [phone] Encounter Details Date Type Department Care Team (Late st Contact Info) Description 11/08/2023 [place] [address] Bindu Tamayo RN Social History Tobacco Use Types Packs/Day Years Used Date Smoking Tobacco: Former Cigarettes 0.8 22 0 10/28/1998 - 10/28/2020 Smokeless Tobacco: Never Comments:smokes 8-10 cig per day Alcohol Use Standard Drinks/Week Comments Never 0 (1 standard drink = 0.6 oz pur e alcohol) Sex and Gender Information Value Date Recorded Sex Assigned at Not on file Gender Identity Not on file Sexual Orientation Not on file documented as of this encounter Miscellaneous Notes * Telephone Encounter - Bindu Tamayo RN - 11/08/2023 10:30 AM EDT Took a hot call from Holly who was returning my call. 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 She stated she does not want to see that eye Dr again. She reports that in 2020, Dr. Hernandez had her followed by an eye Dr. To monitor vision changes and she had been fine up until a couple months ago when she noticed worsening vision in right eye. Last month she went back to the eye Dr and when they covered her left eye, the vision in her right eye was so blurry that she couldn't see out it. The eye Dr at the time did not mention it a all and she reports that when using both eyes, she doesn't notice the right eye is blurry. I askedwhat her vision was like now but she was was increasingly resistant to answering my questions. She apologized for being frustrated with the whole situation. I asked again about her vision now and shesaid she could see fine because both eyes are open. I asked her to cover her left eye and tell me If the right eye is blurry, she again resisted answering the question and we abruptly got disconnected. I called back immediately and left a message to call back to further discuss what's going on withvision. documented in this encounter Plan of Treatment Upcoming Encounters Date Type Department Care Team (Late st Contact Info) Description 01/01/2024 9:10 AM EDT Office Visit Orthopaedics at [place] [phone] Clinic, Dr Alfaro Team None 01/02/2024 11:10 AM EDT Appointment MRI at [place] [phone] [place] [address] 01/02/2024 2:00 PM EDT Office Visit Neurosurgery at [place] [phone] Dennise Jaimes APRN [place], [place] [id number] 01/10/2024 11:30 AM EDT Office Visit Endocrinology at [place] [phone] Alma Delia Martinez MD [facility] [place] [address] documented as of this encounter Visit Diagnoses Not on filedocumented in this encounter Care Teams Canadian Bacon Tier Relationship Specialty Start Date End Date Baron Hobson PA [address] [place] [address] PCP - General Family Medicine 02/01/23 documented as of this encounter
--- OUTSIDE RECORDS SUMMARY | 2023-12-17 01:43 | XMS_ITS | Encounter Summary ---
Author Organization [facility] [place] [address] Care Team Providers Care Molding Engineer Name Role Phone Baron Hobson Primary Care Provider [phone] Encounter Details Date Type Department Care Team (Latest Contact Info) Description 08/14/2023 Travel Social History Tobacco Use Types Packs/Day Years [...] on file documented as of this encounter Plan of Treatment Upcoming Encounters Date Type Department Care Team (Late st Contact Info) Description 01/01/2024 9:10 AM EDT Office Visit Orthopaedics at [place] [phone] Clinic, Dr Alfaro Team None 01/02/2024 11:10 AM EDT [place]ment [place] [address] Dennise Jaimes LEAVE COORDINATOR [facility] [place] [address] 01/02/2024 2:00 PM EDT Office Visit Neurosurgery at [place] [phone] Dennise Jaimes APRN [facility] [place] [address] 01/10/2024 11:30 AM EDT Office Visit Endocr[place] [address] Alma Delia Martinez MD [facility] [place] [address] documented as of this encounter Visit Diagnoses Not on filedocumented in this encounter Care Teams Molding Engineer Relationship Specialty Start Date End Date Baron Hobson PA [address] [place] [address] PCP - General Family Medicine 02/01/23 documented as of this encounter
--- OUTSIDE RECORDS SUMMARY | 2023-12-17 01:43 | XMS_ITS | Encounter Summary ---
Author Organization [facility] Address [address] [place] [address] Care Team Providers Care Phone Manager Name Role Phone Randell Haji MD Primary Care Provider Encounter Details Date Type Department Care Team (Late st Contact Info) Description 03/25/2015 Results Only [facility] [phone] Cande Tejada MD [address] [place] [phone] Social History Tobacco Use Types Packs/Day Years Used Date Smoking Tobacco: Never Assessed Sex and Gender Information Value Date Recorded Sex Assigned at Not on file Gender Identity Choose not to disclose 13:02 EDT Sexual Orientation Not on file documented as of this encounter Plan of Treatment Upcoming Encounters Date Type Department Care Team (Late st Contact Info) Description 02/11/2024 13:15 EDT Office Visit [facility] Psychiatry - [address] [phone] October, Shabana Vera MD MPH [address] [facility] [address] [place] [phone] Laci Cheema MD [address] [place], [place] [phone] documented as of this encounter Procedures Procedure Name Priority Date/Time Associated Diagnosis Comments SURGICAL PATHOLOGY Routine 03/25/2015 8:36 EDT documented in this encounter Results * SURGICAL PATHOLOGY (03/25/2015 8:36 EDT) Pathology Report: SURGICAL PATHOLOGY REPORT Reports generated via electronic interface contain original data; however they are lacking the format of the original report. Caution should be taken when reading/interpret ing unformatted reports. Name: ? YUNG DAY ? Accession #: ? [id number] ? : ? 1980 (Age: 34) ??F ? Collect Date: ? 03/25/2015 ? Location: ? [facility] ? Receive Date: ? 03/28/2015 ? Provider: CANDE TEJADA MD Copy to: ? Final Pathologic Diagnosis: BREAST, RIGHT, EXCISIONAL BIOPSY: - Benign breast tissue with acute and chronic inflammation and reactive epithelial changes. See comment. Comment: A Brown and Brenn (B&B) stain was performed on block 1 and is negative for bacterial organisms. Control stain for B&B performed appropriately. ??(Dr. Underwood)/ljn Document reviewed and electronically signed by: HEMALATHA SAVAGE MD Report ??Date: 03/31/2015 13:54 By the signature above, the attending physician certifies that he/she has personally conducted a gross and/or microscopic examination of the described specimens and rendered or confirmed the above diagnosis. Specimen(s) Received: Chronic mastitis R breast Clinical History: Chronic mastitis Gross Description: ? Received in formalin labelled with proper patient identification (initials Y, A) and breast chronic mastitis is an unoriented friable portion of fibrofatty tissue (2.9 g, 3.2 x 2.0 x 1.4 cm). The outer surface is inked black. Sectioning reveals pink-salas firm fibrous tissue with an equal amount of yellow lobulated adipose tissue. No masses are identified. Buoy Tender sections are submitted as 1 and 2. Time removed from patient: 1010 hrs on 03/25/2015 Time in formalin: 1100 hrs on 03/25/2015 Time out of formalin: 1900 hrs on 03/28/2015 Ashwini Villa 03/28/2015 11:54 AM End of Report [facility] 03/25/2015 8:36 EDT 03/28/2015 8:36 EDT Cande Tejada MD PATHOLOGY ORDERABLES [facility] [address] [place] [address] documented in this encounter Visit Diagnoses Not on filedocumented in this encounter Care Teams Phone Manager Relationship Specialty Start Date End Date Randell Haji MD [address] [place] [address] PCP - General 04/04/11 12/12/23 documented as of this encounter
--- OUTSIDE RECORDS SUMMARY | 2023-12-17 01:43 | XMS_ITS | Encounter Summary ---
[place] [address] Care Team Providers Care Teacher Drama Name Role Phone Unknown Primary Care Provider Unavailabl e Encounter Details Date Type Department Care Team (Late st Contact Info) Description 12/27/2022 Telephone [place] [phone] Dennise Jaimes APRN [facility] [place] [address] Social History Tobacco Use Types Packs/Day Years [...] encounter Miscellaneous Notes * Telephone Encounter - Veronica Michael - 12/27/2022 9:37 AM EDT 1 yr recall entered in edh ----- Message from Dennise Jaimes APRN sent at 12/26/2022 5:48 PM EDT ----- 1 year MRA head OV with AP documented in this encounter Plan of Treatment Upcoming Encounters Date Type Department Care Team (Late st Contact Info) Description 01/01/2024 9:10 AM EDT Office [place] [phone] Clinic, Dr Alfaro Team None 01/02/2024 11:10 AM EDT Appointment MRI at [place] [address] Dennise Jaimes, SHIPPING AND RECEIVING SUPERVISOR [facility] [place] [address] 01/02/2024 2:00 PM EDT Office Visit Neurosurgery at [place] [phone] Dennise Jaimes, SHIPPING AND [place] [address] 01/10/2024 11:30 AM EDT Office Visit Endocrinology at [place] [phone] Alma Delia Martinez MD [facility] [place] [address] documented as of this encounter Visit Diagnoses Not on filedocumented in this encounter Care Teams Teacher Drama Relationship Specialty Start Date End Date Unknown None PCP - General 02/24/22 01/31/23 documented as of this encounter
--- OUTSIDE RECORDS SUMMARY | 2023-12-17 01:43 | XMS_ITS | Encounter Summary ---
Author Organization Health system Address [address] [place] [address] Care Team Providers Care Furnace Installer Name Role Phone Randell Haji MD Primary Care Provider [phone] Baron Hobson PA-C Primary Care Provider + Encounter Details Date Type Department Care Team (Late st Contact Info) Description 03/30/2021 Lab Requisition [facility] Pathology & Laboratory Medicine - [address] [phone] Outr Resulting Lab, Provider Social History Tobacco Use Types Packs/Day Years Used Date Smoking Tobacco: Never Assessed Sex and Gender Information Value Date Recorded Sex Assigned at Not on file Gender Identity Choose not to disclose 13:02 EDT Sexual Orientation Not on file documented as of this encounter Plan of Treatment Upcoming Encounters Date Type Department Care Team (Late Contact Info) Description 02/11/2024 13:15 EDT Office Visit [facility] Psychiatry - [address] [place] [address] [place], [place] [address] October, Shabana Vera MD MPH [address] [facility] [place], [address] [place] [phone] Laci Cheema MD [address] [place], [place] [address] documented as of this encounter Procedures Procedure Name Priority Date/Time Associated Diagnosis Comments ZZCOVID-19 TEST [facility] PCR Today 03/29/2021 14:30 EDT COVID-19 TESTING Routine 03/29/2021 14:3 0 EDT documented in this encounter Results * COVID-19 TEST [facility] PCR (03/29/2021 14:30 EDT) Swab ENTIRE NASOPHARYNX / Unknown 03/29/2021 14:30 EDT 03/30/2021 17:18 EDT Provider Outr Resulting Lab MICROBIOLOGY - GENERAL ORDERABLES [facility] [address] [place] [address] * COVID-19 TESTING (03/29/2021 14:30 EDT) COVID-19 rt-PCR Result Negative Negative 03/31/2021 10:18 EDT [facility] Comment: This test has not been FDA cleared or approved. This test has been authorized by FDA under an EUA for use by authorized laboratories. This test has been authorized only for detection of nucleic acid from 2019-nCoV, not for any other viruses or pathogens. This test is only authorized for the duration of the declaration that circumstances exist justifying the authorization of emergency use of in vitro diagnostic tests for detection and/or diagnosis of 2019-nCoV under section 564(b)(1) of Act, 21 U.S.C ?? 360bbb-3(b) (1), unless the authorization is terminated or revoked sooner. Negative results do not preclude 2019-nCoV infection and should not be used as the sole basis for treatment or other patient management decisions. Negative results must be combined with clinical observations, patient history, and epidemiological information. Testing was performed using the enoch SARS-CoV-2 assay ([employer] on the Enoch 6800 System Performing Lab Enoch 6800 [facility] 03/31/2021 10:18 EDT [facility] Swab 03/29/2021 14:3 0 EDT 03/30/2021 17:18 EDT Provider Outr Resulting Lab MICROBIOLOGY - GENERAL ORDERABLES [facility] [address] [place] [address] documented in this encounter Visit Diagnoses Not on filedocumented in this encounter Care Teams Furnace Installer Relationship Specialty Start Date End Date Randell Haji MD [address] [place] [address] PCP - General 04/04/11 12/12/23 Baron Hobson PA-C [address] [place] [phone] PCP - General 12/13/23 documented as of this encounter
--- OUTSIDE RECORDS SUMMARY | 2023-12-17 01:43 | XMS_ITS | Encounter Summary ---
Author Organization [facility] Address [address] [place] [address] Care Team Providers Care Animal Herder Name Role Phone Randell Haji MD Primary Care Provider [phone] Baron Hobson PA-C Primary Care Provider + Encounter Details Date Type Department Care Team (Late st Contact Info) Description 11/13/2023 Lab Requisition [facility] Pathology & Laboratory Medicine - [address] [address] Outr Resulting Lab, Provider Social History Tobacco [...] Info) Description 02/11/2024 13:15 EDT Office Visit [facility] Psychiatry - [address] [place] [address] [place], [place] [address] Gl[place], Shabana Vera MD MPH [address] [facility] [place], [address] [place] [phone] Laci Cheema MD [address] [place], [place] [address] documented as of this encounter Procedures Procedure Name Priority Date/Time Associated Diagnosis Comments LYME AB Routine 11/12/2023 12:15 EDT documented in this encounter Results * LYME AB (11/12/2023 12:15 EDT) Lyme Ab Negative Negative 11/14/2023 11:54 EDT [facility] Blood VENOUS BLOOD / Unknown 11/12/2023 12:15 EDT 11/13/2023 16:54 EDT Provider Outr Resulting Lab IMMUNOLOGY A ND SEROLOGY ORDERABLES [facility] [address] [place] [address] documented in this encounter Visit Diagnoses Not on filedocumented in this encounter Care Teams Animal Herder Relationship Specialty Start Date End Date Randell Haji MD [address] [place] [address] PCP - General 04/04/11 12/12/23 Baron Hobson PA-C [address] [place] [address] PCP - General 12/13/23 documented as of this encounter
--- OUTSIDE RECORDS SUMMARY | 2023-12-17 01:43 | XMS_ITS | Encounter Summary ---
Author Organization [facility] Address [address] [place] [address] Care Team Providers Care Efficiency Engineer Name Role Phone Unknown, Provider Primary Care Provider Encounter Details Date Type Department Care Team (Late st Contact Info) Description 07/07/2009 7:41 EST - 07/07/2009 12:38 EST Hospital Encounter [facility] Perioperative Services- [address] [address] Ryan Thompson MD [address] [facility], [address] [place] [phone] Discharge Disposition: Discharged to Other Facility Social History Tobacco Use Types Packs/Day Years Used Date Smoking Tobacco: Never Assessed Sex and Gender Information Value Date Recorded Sex Assigned at Not on file Gender Identity Choose not to disclose 4 13:02 EDT Sexual Orientation Not on file documented as of this encounter Last Filed Vital Signs Vital Sign Reading Time Taken Comments Blood Pressure 129/83 07/07/2009 1215 EST Pulse - - Temperature 37.6 ??C (99.7 ??F) 07/07/2009 1215 EST Respiratory Rate 18 07/07/2009 1215 EST Oxygen Saturation 96% 07/07/2009 1215 EST Inhaled Oxygen Concentration - - Weight - - Height - - Body Mass Index - - documented in this encounter Discharge Disposition Disposition Code Departure Means Destination Discharged to Other Facility documented in this encounter Progress Notes * Susan Meneses - 07/07/2009 1025 EST 1010--Per Dr Winters, present in PACU to see pt, no discharge instructions other than post-procedure orders. Pt to be transported via ambulance back to [facility] 1038--Dr Thomspon in to speak to pt. Pt not required to void [facility] 1100--Phone call from Dr Haji, referred to Dr Thompson fro questions re: Pt's disposition home vs. [facility] 1139--oral care given 1145--taking ice chips 1205--notified Dr Velez of headache, she will write order 1228--report to Amrita Esquivel RN of [facility] who will accompany pt in transport. IV saline locked for fluids in transit. Nose ring and pj pant returned to pt 1238--transferred out of PACU back to [facility] via ambulance service documented in this encounter Procedure Notes * Inpatient, Physician - 07/12/2009 0828 ESTAssociated Order(s): ORDERS - SCANNED * Inpatient, Physician - 07/12/2009 0828 EST * Inpatient, Physician - 07/12/2009 0828 ESTAssociated Order(s): ECG REPORT - SCANNED * Inpatient, Physician - 07/08/2009 1014 EST documented in this encounter OR Notes * Anesthesia Preprocedure Evaluation - Inpatient, Physician - 07/12/2009 0828 EST * Anesthesia Procedure Notes - Inpatient, Physician - 07/07/2009 1009 EST * Anesthesia Procedure Notes - Inpatient, Physician - 07/07/2009 0959 EST documented in this encounter Miscellaneous Notes * Scanned Note-Null - Inpatient, Physician - 07/12/2009 0828 EST * Scanned Note-Null - Inpatient, Physician - 07/12/2009 0828 EST * Brief Op Note - Inpatient, Physician - 07/12/2009 0828 EST documented in this encounter Plan of Treatment Upcoming Encounters Date Type Department Care Team (Late st Contact Info) Description 02/11/2024 13:15 EDT Office Visit [facility] Psychiatry - [address] [place] [address] [place], [place] [address] October, Shabana Vera MD MPH [address] [facility], [address] [place] [phone] Laci Cheema MD [address] [place], [place] [address] documented as of this encounter Procedures Procedure Name Priority Date/Time Associated Diagnosis Comments ECG REPORT - SCANNED 07/12/2009 8:28 EST ORDERS - SCANNED 07/12/2009 8:28 EST FL ERCP BILIARY SYSTEM 07/07/2009 9:54 EST documented in this encounter Results * ECG REPORT - SCANNED (07/12/2009 8:28 EST) 07/12/2009 8:28 EST Narrative 07/12/2009 9:57 EST Ordered by an unspecified provider. Transcriptions Inpatient, Physician - 07/12/2009 8:28 EST Physician Inpatient MD PROCEDURE/MINOR S URGICAL ORDERABLES * ORDERS - SCANNED (07/12/2009 8:28 EST) 07/12/2009 8:28 EST Narrative 07/12/2009 9:57 EST Ordered by an unspecified provider. Transcriptions Inpatient, Physician - 07/12/2009 8:28 EST Physician Inpatient MD ADMISSION ORDERAB LES * FL ERCP BILIARY SYSTEM (07/07/2009 9:54 EST) Anatomical Region Laterality Modality Other 07/07/2009 9:54 EST 07/07/2009 13:36 EST Narrative 07/07/2009 13:36 EST History/Comments: ?? Bile duct stones, obstruction s/p ERCP FL ERCP BILIARY SYSTEM. Findings: Views obtained during ERCP shows opacification of the common bile duct, the common hepatic duct and intrahepatic duct. No evidence of filling defect is seen. No obstruction is identified. Impression: No abnormality of the biliary system is seen on this study. Please correlate with operative findings. Procedure Note 07/07/2009 History/Comments: Bile duct stones, obstruction s/p ERCP FL ERCP BILIARY SYSTEM. Findings: Views obtained during ERCP shows opacification of the common bile duct, the common hepatic duct and intrahepatic duct. No evidence of filling defect is seen. No obstruction is identified. Impression: No abnormality of the biliary system is seen on this study. Please correlate with operative findings. Ryan Thompson MD IMG FLUOROSCOPY OR DERABLES documented in this encounter Visit Diagnoses Not on filedocumented in this encounter Administered Medications Inactive Administered Medications - up to 3 most recent administrations Medication Order MAR Action Action Date Dose Rate Site acetaminophen (TYLENOL) tablet 650 mg 650 mg, oral, EVERY 4 HOURS PRN, Starting on Dasha 2 at 1214, Until Dasha 210 at 1457, Pain, Routine Given 07/07/2009 12:23 EST 650 mg lactated ringers (LR) infusion at 75 mL/hr, intravenous, CONTINUOUS, Starting on Dasha 210 at 1000, Until Dasha 2/10 at 1457, Routine, Recovery (only) New Bag 07/07/2009 11:40 EST 75 mL/hr Rate Documented 07/07/2009 10:01 EST 75 mL/hr documented in this encounter Active and Recently Administered Medications Times are shown in EST. Continuous Medication Order 07/05/2009 07/06/2009 07/07/2009 lactated ringers (LR) infusion (CANCELED) at 75 mL/hr, intravenous, CONTINUOUS, Starting on Dasha 2/4/10 at 1000, Until Dasha 07/07/09 at 1457, Routine, Recovery (only) 1001 (Rate Documente d - Provider: Susan Meneses)1140 (New Bag - Provider: Susan Meneses) PRN Medication Order 07/05/2009 07/06/2009 07/07/2009 acetaminophen (TYLENOL) tablet 650 mg (CANCELED) 650 mg, oral, EVERY 4 HOURS PRN, Starting on Dasha 07/07/09 at 1214, Until Dasha 07/07/09 at 1457, Pain, Routine 1223 (Given - Provid er: Susan Meneses) documented in this encounter Orders Medications Ordered That Jerry ht Not Have Been Administered Count Last Ordered Date First Ordered Date atropine 0.1 mg/mL 10 mL syringe 0.5 mg 1 0 07/07/2009 fentanyl citrate (PF) 50 mcg /mL injection 25-100 mcg 1 07/07/2009 HYDROmorphone (PF) (DILAUDID ) 1 mg/mL injection 0.2 mg 1 07/07/2009 ibuprofen (MOTRIN) tablet 400 mg 1 07/07/19 10 naloxone (NARCAN) injection 0.2 mg 1 2009 Nursing Count Last Ordered Date First Orde red Date APPLY WARMING BLANKET 1 07/07/2009 CARDIAC MONITORING 1 07/07/2009 MONITOR AIRWAY 1 07/07/2009 NOTIFY SERVICE 1 07/07/2009 PULSE OXIMETRY 1 07/07/2009 VITAL SIGNS 1 07/07/2009 Admission Count Last Ordered Date First Orde red Date NOTIFY PPS PATIENT ARRIVAL IN PACU 1 2009 NOTIFY PPS PATIENT DISCHARGED FROM PACU 1 0 07/07/2009 documented in this encounter Care Teams Efficiency Engineer Relationship Specialty Start Date End Date Unknown, Provider, PCP - General 07/06/09 04/03/11 documented as of this encounter
--- OUTSIDE RECORDS SUMMARY | 2023-12-17 01:43 | XMS_ITS | Encounter Summary ---
Author Organization [facility] Address [address] [place] [address] Care Team Providers Care Plastics Worker Name Role Phone Randell Haji MD Primary Care Provider [phone] Baron Hobson PA-C Primary Care Provider + Encounter Details Date Type Department Care Team (Late st Contact Info) Description 06/19/[address] [facility] Pathology & Laboratory Medicine - [address] [id number] Outr Resulting Lab, Provider Social History Tobacco [...] Info) Description 02/11/2024 13:15 EDT Office Visit [facility] Psychiatry - [address] [place], [place] [address] Shabana Cody MD MPH [address] [facility], [place], [address] [place] [phone] Laci Cheema MD [address] [place], [place] [address] documented as of this encounter Procedures Procedure Name Priority Date/Time Associated Diagnosis Comments T3, TOTAL Routine 06/19/2022 11:30 EST documented in this encounter Results * T3, TOTAL (06/19/2022 11:30 EST) T3, Total 160 97 - 169 ng/dL 06/19/2022 22:19 EST [facility] Blood VENOUS BLOOD / Unknown 06/19/2022 11:30 EST 06/19/2022 21:26 EST Provider Outr Resulting Lab CHEMISTRY & BLOOD GAS ORDERABLES [facility] [address] [place] [address] documented in this encounter Visit Diagnoses Not on filedocumented in this encounter Care Teams Plastics Worker Relationship Specialty Start Date End Date Randell Haji MD [address] [place] [id number] PCP - General 04/04/11 12/12/23 Baron Hobson PA-C [address] [place] [address] PCP - General 12/13/23 documented as of this encounter
--- OUTSIDE RECORDS SUMMARY | 2023-12-17 01:43 | XMS_ITS | Data Portability ---
Author Organization [place] [facility], MAIN OFFICE [place] [address] Assessment Encounter Date Assessment Date Assessment LastModified by Organization Details LastModified Time 11/22/2021 11/22/2021 pt pto with anxiety as CC. She has two young boys- with some degree of hyperactivity- diet plays a big role in mood for all- and has strong family history of substance abuse and mental illness- methylation studies suggested but medicaid will not cover so finances are an issue to get tested- other options like 23 and me were discussed to get testing- will support methylationand get bloodwork. I spent a total of 90 minutes face to face time with this patient and 65 minutes of that time was spent in counseling and coordination of care with that patient as described in the progress note and /or: recommended diagnostic studies,rsik factor reduction,importa nce of compliance with treatment plan,and instructions for treatment and follow up. Not available 12/12/2021 16:27:50 12/27/2021 12/27/2021 pt rto for fu on labs which she failed to have done bc she forgot appt. dietr evisited, imporvements in bowels and stomach complaints resolved with dietary changes added kava for ptsd triggers to be used and advised of extra caution. Not available 01/14/2022 17:50:29 Plan of Treatment Reminders Order Date Submit Date Provider Last Modified By Organization Details Last Modified Time Details Appointments None recorded. Lab lipid panel, serum 2021 022 [facility] (Registration ), [address] [place] [address] , [place], [address], 05:00:44 homocystein e, serum or plasma 2021 022 [facility] (Registration ), [address] [place] [address] [place], [address], 3 05:00:44 lipoprotein (a), quant, serum 2021 [facility] (Registration ), [address] [place] [address] [place], [address], 3 05:00:44 HbA1c (hemoglobin A1c), blood 2021 [facility] (Registration ), [address] [place] [address] [place], [address], 3 05:00:44 vitamin D3, 25-hydroxy, serum 2021 [facility] (Registration ), [address] [place] [address] [place], [address], 3 05:00:44 vitamin B6 (pyridoxine ), plasma 2021 [facility] (Registration ), [address] [place] [address] [place], [address], 3 05:00:44 T3, free, serum or plasma 2021 [facility] (Registration ), [address] [place] [address] [place], [address], 3 05:00:44 TSH + free T4, serum 2021 [facility] (Registration ), [address] [place] [address] [place], [address], 3 05:00:44 CMP, serum or plasma 2021 [facility] (Registration ), [address] [place] [address] [place], [address], 3 05:00:44 vitamin B12 + folate, serum or blood 2021 022 [facility] (Registration ), [address] [place] [address] [place], [address], 3 05:00:44 iron + TIBC + ferritin, serum 2021 022 [facility] (Registration ), [address] [place] [address] [place], [address], 3 05:00:44 Referral None recorded. Procedures None recorded. Surgeries None recorded. Imaging None recorded. Medication Orders None recorded. Patient TargetsNo targets recorded. Patient Instructions Encounter Date Encounter Id Patient Instructions Last Modified By Organization Details Last Modified Time 11/22/2021 [id number] 1. neurotransmitter- testing with melatonin 300.00 2. pure-genomics b complex- 1 cap/day 3. bloodwork above sent to [facility]- 4. herbal anxiolytic will discuss after bloodwork- 5. pur gum as sub for regular gum- can be found at [employer] or sometimes [employer] 6. OX bile 1 cap with meals especially if fatty like hamburger or hotdog or eggs and dairy Not available 12/12/2021 16:31:39 12/27/2021 [id number] diarrhea: care instructions Not available 01/14/2022 18:35:38 1 try [facility] for finding healthier gum and continue to make dietary changes to whole foods instead of procesed or frozen packaged foods 2. kava- can potentiate the fluoxetine- take 5 drops when having anxiety or ptsd is triggered once to twice a day for minimum of 3-5 days call to report taking it- and to evaluate possible interactions with fluoxetine etc Not available 01/14/2022 18:35:36 Reason for Referral None Reported. Problems Name Status Onset Date Resolution Date Notes Provider Name and Address Organization Details Recorded Time Depressive disorder Active 11/23/19 22 Romi Eli ND [address] [place] [address], [place], [address] , [place] [facility] 11/22/2021 13:37:53 Anxiety Active 11/23/19 Romi Eli ND [address] [place] [address], [place], [address] , [facility] 11/22/2021 13:50:42 Hyperlipidemia Active 11/23/19 [address], [address] , [facility] 11/22/2021 13:51:07 Vitamin D deficiency Active 11/23/[address], [address] , [facility] 11/22/2021 13:55:38 Fatigue Active 11/23/[address], [address] , [facility] 11/22/2021 13:58:14 Numbness and tingling sensation of skin Active 11/23/[address], [address] , [facility] 11/22/2021 14:14:46 Loose stool Active 01/15/[address], [address] , [facility] 01/14/2022 17:50:44 Problem Notes None recorded. Medical Equipment None Reported. Allergies Allergen ID Allergen Name Allergen Category Reaction Reaction Severity Criticality Documentation Date Start Date Code Code System Note Provider Name and Address Organization Details Recorded Time 3822 amoxicill in medicatio n angioedem a severe high 11/22/2021 723 RxNorm passe d out, vomit ing, took to hospi gilberto- Romi [address], [address], [facility] 2 13:31:00 Medications Name Sig Start Date Stop Date Status Note LastModified by Organization Details LastModified Time benzonatate 200 mg capsule TAKE ONE CAPSULE BY MOUTH THREE TIMES A DAY NEEDED FOR COUGH 11/22 completed Not Available Not Available Not Available prednisone 20 mg tablet TAKE 2 TABLETS ORALLY ONCE DAILY active Not Available Not Available No t Available lorazepam 0.5 mg tablet TAKEONE TABLET BY MOUTH NEEDED active Not Available Not Available No t Available nicotine 21 mg/24 hr daily transdermal patch APPLY 1 PATCH TO SKIN ONCE A DAY active Not Available Not Available No t Available epinephrine 0.3 mg/0.3 mL injection, auto-inject or INJECT CONTENTS OF 1 PEN INTO THE MUSCLE ONCE SINGLE DOSE DIRECTED active Not Available Not Available No t Available albuterol sulfate HFA 90 mcg/actuati on aerosol inhaler INHALE 2 PUFFS EVERY 6 HOURS NEEDED FOR SHORTNESS OF BREATH OR WHEEZING active Not Available Not Available No t Available fluoxetine 20 mg capsule TAKE ONE CAPSULE BY MOUTH EVERY DAY active Not Available Not Available No t Available Vitals Date Recorded Body weight Body mass index (BMI) Body height Heart rate Systolic blood pressure Diastolic blood pressure Provider Name and Address Organization Details Last Updated DateTime 2 78960.9 2 g 34.4 kg/m2 160.02 cm 74 /min 90 mm[Hg] 60 mm[Hg] Romi Eli ND [address] [place] [address], [address], [facility] 2 13:28:34 Social History None recorded. Functional Status None recorded. Mental Status None recorded. Family History Nothing Reported. Medical History No medical history recorded. Gynecological HistoryNo gynecological history recorded. Obstetrics History GPAL:G 0 P 0 0 0 0 Past Encounters Encounter ID Performer Location Encounter Start Date Encounter Closed Date Diagnosis/Indication Diagnosis SNOMED-CT Code [id number] Romi Eli ND MAIN OFFICE [address] [id number] 11/22/2021 13:20:10 12/12/2021 16:31:52 Anxiety 13919068 Hyperlipid emia screening 362639361 Family his tory of diabetes mellitus type 2 853819150 Vitamin D deficiency 347 [address] Fatigue 31519726 Numbness a nd tingling sensation of skin 452983995750 [id number] Romi Eli ND MAIN OFFICE [address] [place] [address] 12/27/2021 12:42:29 01/14/2022 18:35:53 Anxiety 69821198 Loose stool 784171479 Health Concerns Section Related Observation LastModified by Organization Detai ls LastModified Time None Recorded Concern Status LastModified by Organization Details LastModified Time None Recorded Advance Directives Directive None Recorded Payers Encounter Date Sequence Insurance Name Policy Number Policy Brown Covered Member ID Brown Member ID Guarantor Name 11/22/2021 1 [facility] (MEDICAID) Holly Mcnally [id number] Holly Mcnally 12/27/2021 1 [facility] (MEDICAID) Holly Mcnally [id number] Holly Mcnally Notes Date Note Type Note Provider Name and Address Organization Details Recorded Time 11/22/2021 text/html HPI Notes: she i s changing diet and staying away from preservative free and sugar free- 1-2 months to get rid of it all preservative free chips and fresh fruit- she had a severe diarhhea and vomiting to amxicillin an dshe was told it was anxiety- and didnt beieve she lost consciousness but not she doesnt touch it if her son has to take- she has been on disability for dpression and anxiety- hospitalized for suicide once as a child she had anxiety and as both- mother didnt acknowledge it- her grandmother address for her not on meds- she was 22- \ she was put on diability after her brother diesd he was 27 and she was 27 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- meds and stopped 12 yrs ago she quit smoking in August- now she is averse to it- she chews gum alot- she got all her teeth pulled and she never got dentures she has none her teeth were rotting when her mom was 21 her mother lost all of hers- OCD and possibly other things- ptsd- now that she on flutexitine she would cry every day for months- she likes working independantly and not able to get pissed off- she gets structure- not structured with diet- she will not be hungry until 10 am wakes 3 am- she wakes a lot at 3 am ptsd and anxiety- from dad- brother committed suicide- father- triggers- 2019 porbation for 2 yrs- he goes to grandfathers with him- close to aunts and happier with him than she has full custody sleep she takes melatonin- 2 mg- it helps but doesnt cure it- 8:30/9 8pm to bed and she cant stay up past and then she cant go back to fam hx polycystic ovaries as well she gets bouts of diarhhea- she had her gallbladder out and ever since she gets loose stools especially with fats ox bile support discussed Romi Eli ND [address] [facility], [place], [address], [facility] 12/12/2021 16:31:42 12/27/2021 text/html HPI Notes: arslan rogers is much better and has nt had the need to take oxbile she is taking b- vitamins she feels better when she takes them- she will do really good for a week Jan 05 she made a new appt for bloodwork- it was not done for todays appt she is eatign more homecooked meals- bowels are less loose when she eats this way she tried an alternative to dairy and is made her stmoach upset so she will NOT be stopping- coffee increases anxiety so she is trying to quit- she needs a better gum still she will keep looking- she was velarian root- she was having trauma and ptsd induced from her childrens dad- velarian helped but after 3 noghts of it she got headache and cramps- space case she says she took 2 caps and were 550plus milligrams they recommended 4 caps and she took 2 herbs seem to make her have side effects- less is more for her- she us currently off lorazpam she hasnt gone back to docotr to refill- discussed possible interactions and to stop if put back on lorazepam Romi Eli ND [address] [facility], [place], [address], [facility] 01/14/2022 18:35:43 OBGyn Episode No OBEpisode recorded.
--- OUTSIDE RECORDS SUMMARY | 2023-12-17 01:43 | XMS_ITS | Encounter Summary ---
Author Organization [facility] [place] [address] Care Team Providers Care Client Relations Representative Name Role Phone Baron Hobson Primary Care Provider [phone] Reason for Referral * Physical Therapy (Routine) - Authorized Specialty Diagnoses / Procedures Referred By Contac t Referred To Contact Physical Therapy Diagnoses Patellofemoral arthritis of right knee Dmtiriy Earl MD [facility] [address] [place] [address] Referral ID Status Reason Start Date Expiration Date Visits Requested Visits Authorized [id number] Authorized Evaluate and Treat 08/14/2023 02/10/2024 12 12 Reason for Visit * Reason Comments Establish Care NXR LEFT KNEE PAIN NO INJURY 2ND OPINON * Consultation (Routine) - Authorized Specialty Diagnoses / Procedures Referred By Jesika maddox Referred To Contact Orthopaedics Diagnoses Left knee pain, unspecified chronicity Baron Hobson PA [address] [place] [address] [facility] [address] [place] [phone] Referral ID Status Reason Start Date Expiration Date Visits Requested Visits Authorized [id number] Authorized Second Opinion PCP Updated and/or Approved 02/01/2023 02/01/2024 12 12 Encounter Details Date Type Department Care Team (Latest Contact Info) Description 08/14/2023 10:40 AM EDT Office [place] [address] Clinic, Dr Youngblood Team None Patellofemoral arthritis of right knee Social History Tobacco Use Types Packs/Day Years [...] on file documented as of this encounter Progress Notes * Dmitriy Earl MD - 08/14/2023 10:40 AM EDT Images from the original note were not included. Department of Orthopaedics Division of Adult Joint Reconstructive Surgery Subjective: RE: Holly Mcnally CC: Chief Complaint Patient presents with Establish Care NXR LEFT KNEE PAIN NO INJURY 2ND OPINON DIAGNOSIS: RIGHT knee patellofemoral arthritis ARTHROPLASTY PROCEDURES: (mm/dd/yyyy: left/right procedure, hospital, surgeon) None Holly Mcnally was referred from HIEN Sung [address] [place] [id number] HISTORY OF PRESENT ILLNESS: Holly Mcnally who is a 42 y.o. female who has a history of approximately 3 years of right knee pain which started insidiously. She denies any inciting event. She states she noted more knee pain whenshe would walk about a half a mile to the [facility]. It is worse with excessive knee flexion and with increasing activity level. She had previously trialed a steroid injection and occasionally Tylenol which have helped mildly. She did a brief course of physical therapy, but did not go consistently, and states difficulty in her relationship with the PT provider that limited her ability to continue the treatment. She states that she has been struggling with depression for many years, including during the prior PT attempt, and she lacked the motivation that she felt she needed in order to benefit from the PT. She is currently on disability due to mental health comorbidities and lives at home with her children. Anti-inflammatory medication history: None, Tylenol Home exercise/activities: walking Ambulatory capacity: greater than 6 blocks Assistive devices: not using a cane or other assistive device Stair climbing: alternating feet Physical therapy: Yes , brief trial with lack of adherence per pt Weight gain/loss: has been stable Tried or Using a Brace: No Corticosteroid injections, Genicular nerve block, and/or viscosupplementation: Cortisone Patient denies fevers, chills, night sweats, nausea, or vomiting. She does not endorse a history ofDVT/PE or clotting disorder. QUESTIONNAIRE RESPONSES: 09/16/2018 General Health, Prior Treatments, PreExisting Condition, Health Habits, About You PROMIS-10 General Health Fair PROMIS-10 Quality of Life Good PROMIS-10 Physical Health Fair PROMIS-10 Mental Health Good PROMIS-10 Social Activity Good PROMIS-10 Everyday Activities Completely PROMIS-10 Pain 7 PROMIS-10 Fatigue Severe PROMIS-10 Social Roles Fair PROMIS-10 Anxious or Depressed Always PROMIS PHYSICAL SCORE (range 16-68) 37.4 PROMIS MENTAL SCORE (range 21-68) 38.8 Treatments Tried Heat and ice therapy Brace Physical therapy Medicines applied on the skin (topical) Acetaminophen (e.g. Tylenol) Over the counter anti-inflammatory drugs (e.g Advil, Aspirin, Aleve) Alzheimers or dementia No Cirrohosis or liver disease No HIV/AIDS No Pain in more than one joint in legs Yes Back or neck pain Yes Heart attack No Heart failure No Unclog/bypass leg arteries No Asthma Yes Take medication for asthma Yes Stomach ulcers/peptic ulcer disease No Diabetes No Poor kidney function No Rheumatic condtions Yes Take medications for rheumatic conditions Yes Cancer No Weight (lbs) 215 Height (feet) 5 feet Height (Inches) 3 BMI 38.08 (Obese) Ever used tobacco products Yes Tobacco frequency Daily or almost daily WHO - Tobacco Advice 6 (You are at risk of health and other problems from your current pattern of tobacco use.) Ever used alcoholic beverages Yes Alcohol frequency Never WHO - Alcohol Advice 0 (You are at low risk of health and other problems from your current pattern of use.) Live Alone No Marital situation Living with significant other Schooling Some college or 2 - year degree Combined Household Income $20,000 to less than $25,000 # People Supported 4 Taiwanese, , No, not Taiwanese// Race White Health Literacy Extremely Currently working Yes Current job situation Part-time for other reasons Employment status before injury Other Returned to previous employment Yes Working at same capacity as before injury No Spending time in inpatient rehab facility No Rate overall condition today 4 No data to display No data to display ALLERGIES: Allergies Allergen Reactions Amoxicillin Nausea And Vomiting Passed out Aspirin Other Reaction(s): Anxiety, sobbing Prozac [Fluoxetine] Anxiety Zoloft [Sertraline] Anxiety Worsen her mood symptoms Asa Buff (Mag Carb-Al Glyc) [Aspirin, Buffered] Anxiety Codeine Nausea Only Nsaids (Non-Steroidal Anti-Inflammatory Drug) Palpitations Allergies to metals: No SOCIAL HISTORY: reports that she quit smoking about 2 years ago. Her smoking use included cigarettes. She has a 16.50 pack-year smoking history. She has never used smokeless tobacco. She reports thatshe does not drink alcohol and does not use drugs. 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 There is not a family history of bleeding or anesthetic complications. Family History Problem Relation Age of Onset Cancer Maternal Aunt Cancer Maternal Grandmother Osteoporosis Neg Hx REVIEW OF SYSTEMS: A detailed review of systems was performed and is as reviewed with the patient and indicated in thechart. Review of Systems Constitutional: Negative. HENT: Negative. Eyes: Negative. Respiratory: Negative. Negative for shortness of breath. Cardiovascular: Negative for chest pain. Gastrointestinal: Negative. Genitourinary: Negative. Musculoskeletal: Positive for joint pain. Skin: Negative. Neurological: Negative. Endo/Heme/Allergies: Negative. Psychiatric/Behavioral: Negative. All other systems reviewed and are negative. Patient denies fevers, chills, night sweats, nausea, or vomiting. Objective: VITALS: BP Readings from Last 1 Encounters: 01/04/23 104/64 Pulse Readings from Last 1 Encounters: 01/04/23 83 There is no height or weight on file to calculate BMI. PHYSICAL EXAMINATION: Constitution: Holly Mcnally sits in the clinic today alert, appears stated age, and cooperative. She is alert and oriented. I have made the following determinations: Walks with a Normal gait. Knee Exam: RIGHT Prior surgery on this joint: No Knee ROM: Extension:0 Flexion: 120 Alignment: 0-4 degrees Neutral Stability: A/P Translation <5mm. Varus (lateral stability) <5mm Valgus (medial stability) <5mm Extension La degrees or less Patella Tracking: Normal Skin Integrity: Normal Pulses Palpable: Right PT: Yes Right DP:Yes Motor/Sensory: Distal Motor: Normal Distal Sensory: Normal Quadriceps Strength: 5 Knee Effusion: None. Ecchymosis: none Patella: Patellar apprehension test: negative Patellar compression test: positive Tenderness: None IMAGING: I personally reviewed and interpreted the radiographs obtained on 09/2022: X-RAYS: AP, lateral views of the RIGHT knee(s) demonstrate(s) mild valgus angular deformity, mild Patella-Femoral joint space narrowing with subchondral sclerosis. No fractures. RI right knee 09/2022-subchondral cyst in the medial tibial plateau, significant thinning of the cartilage within the lateral patellar facet with mild surrounding edema suggestive of degenerative joint disease. Mild hypoplasia of the lateral femoral condyle. No fractures. REVIEW OF OUTSIDE RECORDS: None Assessment & Plan: IMPRESSION: Ms. Mcnally is a 42 y.o. year old female with mild osteoarthritis of her RIGHT knee patellofemoral joint. We discussed both the natural history and the treatment options with the patient at length today, including both non-operative and operative measures. We reviewed the multiple treatment options available to her for this condition and the hurtful but non-harmful nature of arthritis. Both operative and nonoperative options were discussed as well as the pure elective nature of each. I reviewed the concept of the arthritis ladder with its step-ricks approach, rising in invasiveness based on either previous response or symptom severity/impact on lifestyle. We discussed in more consistent trial of conservative measures with physical therapy in particular and this agapito was very much in agreement with this. She feels she did not trial physical therapy adequately in the past as above. We discussed different points of emphasis during physical therapy including core strengthening, hip abductor strengthening, quad and hamstring strengthening, balance andproprioception, and developing a home exercise treatment regimen for her to continue outside of theoffice. We also discussed trialing Tylenol and anti-inflammatory medications, the latter of which she is unable to use per her PCP, however she will try using Tylenol as needed as well. She will callto schedule follow-up appointment as needed in the future after trialing physical therapy for several months. Potential barriers to total joint arthroplasty: -BMI > 40: No There is no height or weight on file to calculate BMI. -Active Tobacco use: No -Diabetes with hemoglobin A1C > 7.5: No -Other comorbid conditions: See above MEDICAL DECISION MAKING and PLAN: -Trial of physical therapy and OTC pain medications as above for treatment of R knee patellofemoraldegenerative joint disease. PT ordered and prescription provided to patient in clinic today. -Patient to call and schedule follow-up as needed in the future Dmitriy Earl MD 08/14/23 08/14/23 * Llu Youngblood MD - 08/14/2023 10:40 AM EDT I saw and evaluated the patient. I was integral in formulating the plan as outlined. LUL YOUNGBLOOD MD * Lul Youngblood MD - 08/14/2023 10:40 AM EDT I saw and evaluated the patient. I was integral in formulating the plan as outlined. LUL YOUNGBLOOD MD documented in this encounter Plan of Treatment Upcoming Encounters Date Type Department Care Team (Late st Contact Info) Description 01/01/2024 9:10 AM EDT Office [place] [address] Clinic, Dr Youngblood Team None 01/02/2024 11:10 AM ED[place] [phone] [place] [address] 01/02/2024 2:00 PM EDT Office [place] [phone] Dennise Jaimes APRN [facility] [place] [address] 01/10/2024 11:30 AM EDT Office [place] [address] Alma Delia Martinez MD [facility] [place] [address] Scheduled Referrals Name Type Priority Associated Diagnoses Orde r Schedule Referral to Physical Therapy Outpatient Referral Routine Patellofemoral arthritis of right knee Ordered: 08/14/2023 documented as of this encounter Visit Diagnoses Diagnosis Patellofemoral arthritis of right knee documented in this encounter Care Teams Client Relations Representative Relationship Specialty Start Date End Date Baron Hobson PA [address] [place] [address] PCP - General Family Medicine 02/01/23 documented as of this encounter
--- OUTSIDE RECORDS SUMMARY | 2023-12-17 01:43 | XMS_ITS | Encounter Summary ---
Author Organization [facility] [place] [address] Care Team Providers Care Valve Lapper Name Role Phone Baron Hobson Primary Care Provider [phone] Encounter Details Date Type Department Care Team (Late st Contact Info) Description 02/01/2023 Transcribe Orders eDH Incoming Referrals [phone] Baron Hobson PA [address] [place] [address] Social History Tobacco Use Types Packs/Day Years [...] 9:10 AM EDT Office [place] [phone] Dr Angelina Travis Team None 01/02/2024 11:10 AM [place] [phone] Dennise Jaimes APRN [facility] [place] [address] 01/02/2024 2:00 PM EDT Office [place] [address] Dennise Jaimes APRN [facility] [place] [address] 01/10/2024 11:30 AM EDT Office [place] [phone] Alma Delia Martinez MD [facility] [place] [address] documented as of this encounter Visit Diagnoses Not on filedocumented in this encounter Care Teams Valve Lapper Relationship Specialty Start Date End Date Baron Hobson PA [address] [place] [address] PCP - General Family Medicine 02/01/23 documented as of this encounter
--- OUTSIDE RECORDS SUMMARY | 2023-12-17 01:43 | XMS_ITS | Encounter Summary ---
Author Organization [facility] Address [address] [place] [address] Care Team Providers Care Document Management Specialist Name Role Phone Randell Haji MD Primary Care Provider [phone] Baron Hobson PA-C Primary Care Provider + Encounter Details Date Type Department Care Team (Late st Contact Info) Description 08/14/2021 Lab Requisition [facility] Pathology & Laboratory Medicine - [address] [phone] Outr Resulting Lab, Provider Social History Tobacco [...] Info) Description 02/11/2024 13:15 EDT Office Visit [facility] Psychiatry - [address] [place], [place] [address] Glo, Shabana Vera MD MPH 111 [facility], [place], [address] [place] [phone] Laci Cheema MD [address] [place], [place] [address] documented as of this encounter Procedures Procedure Name Priority Date/Time Associated Diagnosis Comments HEPATITIS C AB W REFLEX TO HCV RNA BY PCR Routine 08/14/2021 9:35 EDT documented in this encounter Results * HEPATITIS C AB W REFLEX TO HCV RNA BY PCR (08/14/2021 9:35 EDT) Hep C Antibody Negative Negative 08/15/2021 9:58 EDT [facility] Blood VENOUS BLOOD / Unknown 08/14/2021 9:35 EDT 08/14/2021 17:03 EDT Provider Outr Resulting Lab CHEMISTRY & BLOOD GAS ORDERABLES [facility] [address] [place] [address] documented in this encounter Visit Diagnoses Not on filedocumented in this encounter Care Teams Document Management Specialist Relationship Specialty Start Date End Date Randell Haji MD [address] [place] [address] PCP - General 04/04/11 12/12/23 Baron Hobson PA-C [address] [place] [address] PCP - General 12/13/23 documented as of this encounter
--- OUTSIDE RECORDS SUMMARY | 2023-12-17 01:43 | XMS_ITS | Encounter Summary ---
Author Organization [facility] Address [address] [place] [address] Care Team Providers Care Vapor Coater Name Role Phone Randell Haji MD Primary Care Provider [phone] Baron Hobson PA-C Primary Care Provider + Encounter Details Date Type Department Care Team (Late st Contact Info) Description 01/10/[address] [facility] Pathology & Laboratory Medicine - [address] [address] Outr Resulting Lab, Provider Social History Tobacco [...] Info) Description 02/11/2024 13:[address] [facility] Psychiatry - [address] [place] [address] [place], [place] [address] October, Shabana Vera MD MPH 111 [facility], [place], [address] [place] [phone] Laci Cheema MD [address] [place], [place] [address] documented as of this encounter Procedures Procedure Name Priority Date/Time Associated Diagnosis Comments ZZCOVID-19 TEST [facility] PCR Today 01/10/2021 14:30 EDT COVID-19 TESTING Routine 01/10/2021 14:3 0 EDT documented in this encounter Results * COVID-19 TEST [facility] PCR (01/10/2021 14:30 EDT) Swab ENTIRE NASOPHARYNX / Unknown 01/10/2021 14:30 EDT 01/11/2021 15:40 EDT Provider Outr Resulting Lab MICROBIOLOGY - GENERAL ORDERABLES [facility] [address] [place] [address] * COVID-19 TESTING (01/10/2021 14:30 EDT) COVID-19 rt-PCR Result Negative Negative 01/12/2021 12:23 EDT [facility] Comment: This test has [...] performed using the enoch SARS-CoV-2 assay ([facility] on the Enoch 6800 System Performing Lab [facility] [address] [facility] 01/12/2021 12:23 EDT [facility] Swab 01/10/2021 14:3 0 EDT 01/11/2021 15:40 EDT Provider Outr Resulting Lab MICROBIOLOGY - GENERAL ORDERABLES [facility] [address] [place] [address] documented in this encounter Visit Diagnoses Not on filedocumented in this encounter Care Teams Vapor Coater Relationship Specialty Start Date End Date Randell Haji MD [address] [place] [address] PCP - General 04/04/11 12/12/23 Baron Hobson PA-C [address] [place] [address] PCP - General 12/13/23 documented as of this encounter
--- OUTSIDE RECORDS SUMMARY | 2023-12-17 01:43 | XMS_ITS | Clinical Summary ---
Author Organization [facility] Address [address] [place] [address] Care Team Providers Care Credit Department Manager Name Role Phone Baron Hobson PA-C Primary Care Provider + Allergies No known active allergies Medications No known medications Encounters Date Type Department Care Team Description 11/13/2023 Lab Requisition [facility] Pathology & Laboratory Medicine - [address] [id number] Outr Resulting Lab, Provider from Last 3 Months Social History Tobacco Use Types Packs/Day Years Used Date Smoking Tobacco: Never Assessed Sex and Gender Information Value Date Recorded Sex Assigned at Not on file Gender Identity Choose not to disclose 13:02 EDT Sexual Orientation Not on file Last Filed Vital Signs Vital Sign Reading Time Taken Comments Blood Pressure 129/83 07/07/2009 1215 EST Pulse - - Temperature 37.6 ??C (99.7 ??F) 07/07/2009 1215 EST Respiratory Rate 18 07/07/2009 1215 EST Oxygen Saturation 96% 07/07/2009 1215 EST Inhaled Oxygen Concentration - - Weight - - Height - - Body Mass Index - - Plan of Treatment Upcoming Encounters Date Type Department Care Team (Late st Contact Info) Description 02/11/2024 13:15 EDT Office Visit [facility] Psychiatry - [address] [address] Shabana Cody MD MPH 111 [facility], [place], [address] [place] [phone] Laci Cheema MD [address] [place], [place] [address] Health Maintenance Due Date Last Done Comments Hepatitis B Vaccine (1 of 3 - 19+ 3-dose series) 09/07 COVID-19 Vaccine (2022-24 season) 2023 Hepatitis C Screen Completed 08/14/2021 Procedures Procedure Name Priority Date/Time Associated Diagnosis Comments LYME AB Routine 11/12/2023 12:15 EDT HEPATITIS C AB W REFLEX TO HCV RNA BY PCR Routine 08/14/2021 9:35 EDT from Last 3 Months or Most Recently Relevant to Health Maintenance Results * LYME AB (11/12/2023 12:15 EDT) Lyme Ab Negative Negative 11/14/2023 11:54 EDT [facility] Blood VENOUS BLOOD / Unknown 11/12/2023 12:15 EDT 11/13/2023 16:54 EDT Provider Outr Resulting Lab IMMUNOLOGY A ND SEROLOGY ORDERABLES Performing Organization Address City/[facility]/ZIP Co de Phone Number [facility] [address] [place] [address] * HEPATITIS C AB W REFLEX TO HCV RNA BY PCR (08/14/2021 9:35 EDT) Hep C Antibody Negative Negative 08/15/2021 9:58 EDT [facility] Blood VENOUS BLOOD / Unknown 08/14/2021 9:35 EDT 08/14/2021 17:03 EDT Provider Outr Resulting Lab CHEMISTRY & BLOOD GAS ORDERABLES [facility] [address] [place] [address] from Last 3 Months or Most Recently Relevant to Health Maintenance Care Teams Credit Department Manager Relationship Specialty Start Date End Date Baron Hobson PA-C [address] [place] [phone] PCP - General 12/13/23
--- OUTSIDE RECORDS SUMMARY | 2023-12-17 01:43 | XMS_ITS | Encounter Summary ---
Author Organization [facility] Address [address] [place] [address] Care Team Providers Care Outpatient Interviewing Clerk Name Role Phone Randell Haji MD Primary Care Provider [phone] Encounter Details Date Type Department Care Team (Latest Contact Info) Description 03/25/2015 9:52 EDT - 03/25/2015 23:59 EDT Hospital Encounter [address] [address] Unknown, Provider, Discharge Disposition: Home or Self Care Social History Tobacco Use Types Packs/Day Years Used Date Smoking Tobacco: Never Assessed Sex and Gender Information Value Date Recorded Sex Assigned at Not on file Gender Identity Choose not to disclose 13:02 EDT Sexual Orientation Not on file documented as of this encounter Discharge Disposition Disposition Code Departure Means Destination Home or Self Alf documented in this encounter Plan of Treatment Upcoming Encounters Date Type Department Care Team (Late st Contact Info) Description 02/11/2024 13:15 EDT Office Visit [facility] Psychiatry [address] [address] May, Shabana Vera MD MPH 111 [facility], [place], [address] [place] [address] Laci Cheema MD [address] [place] [address] documented as of this encounter Visit Diagnoses Not on filedocumented in this encounter Care Teams Outpatient Interviewing Clerk Relationship Specialty Start Date End Date Randell Haji MD [address] [place] [address] PCP - General 04/04/11 12/12/23 documented as of this encounter
--- OUTSIDE RECORDS SUMMARY | 2023-12-17 01:43 | XMS_ITS | Encounter Summary ---
Author Organization [facility] Address [address] [place] [address] Care Team Providers Care Platform Attendant Name Role Phone Randell Haji MD Primary Care Provider Baron Hobson PA-C Primary Care Provider + Encounter Details Date Type Department Care Team (Late st Contact Info) Description 07/26/2023 Lab Requisition [facility] Pathology & Laboratory Medicine - [address] [id number] Outr Resulting Lab, Provider Social History Tobacco [...] Info) Description 02/11/2024 13:15 EDT Office Visit [facility] Psychiatry - [address] [place], [place] [address] Shabana Cody MD MPH [address] [facility] [place], [address] [place] [phone] Laci Cheema MD [address] [place], [place] [address] documented as of this encounter Procedures Procedure Name Priority Date/Time Associated Diagnosis Comments DEXAMETHASONE SUPPRESSION TEST Routine 07/26/2023 8:05 EST documented in this encounter Results * DEXAMETHASONE SUPPRESSION TEST (07/26/2023 8:05 EST) Dexamethasone Supp <1.0 See Note ug/dL 07/26/2023 18:13 EST [facility] Comment: Reference Range: >= 1.8 ug/dL = non-suppression < 1.8 ug/dL = suppression (normal) Blood VENOUS BLOOD / Unknown 07/26/2023 8:05 EST 07/26/2023 17:18 EST Narrative [facility] - 07/26/2023 18:13 EST The results of this assay can be falsely elevated due to the consumption of Biotin. Provider Outr Resulting Lab CHEMISTRY & BLOOD GAS ORDERABLES [facility] [address] [place] [address] documented in this encounter Visit Diagnoses Not on filedocumented in this encounter Care Teams Platform Attendant Relationship Specialty Start Date End Date Randell Haji MD [address] [place] [address] PCP - General 04/04/11 12/12/23 Baron Hobson PA-C [address] [place] [address] PCP - General 12/13/23 documented as of this encounter
--- OUTSIDE RECORDS SUMMARY | 2023-12-17 01:43 | XMS_ITS | Encounter Summary ---
[place] [address] Care Team Providers Care Mayonnaise Mixer Name Role Phone Baron Hobson Primary Care Provider [phone]- [phone] Reason for Referral * Consultation (Routine) - Authorized Specialty Diagnoses / Procedures Referred By Jesika t Referred To Contact Orthopaedics Diagnoses Left knee pain, unspecified chronicity Baron Hobson PA [address] [place] [address] [facility] [address] [place] [phone] Referral ID Status Reason Start Date Expiration Date Visits Requested Visits Authorized [id number] Authorized Second Opinion PCP Updated and/or Approved 02/01/2023 02/01/2024 12 12 Encounter Details Date Type Department Care Team (Latest Contact Info) Description 02/01/2023 Transcribe Orders eDH Incoming Referrals [phone] Baron Hobson PA [address] [place], [place] [address] Left knee pain, unspecified chronicity Social History Tobacco Use Types Packs/Day Years [...] 9:10 AM EDT Office Visit Orthopaedics at [place] [phone] Clinic, Dr Alfaro Team None 01/02/2024 11:10 AM EDT Appointment MRI at [address], [place] [address] 01/02/2024 2:00 PM EDT Office Visit Neurosurgery at [place] [phone] [address], [place] [address] 01/10/2024 11:30 AM EDT Office Visit Endocrinology at [place] [address] Alma Delia Martinez MD [facility] [place] [address] Scheduled Referrals Name Type Priority Associated Diagnoses Orde r Schedule Referral to Orthopaedics Outpatient Referral Routine Left knee pain, unspecified chronicity Ordered: 02/01/2023 documented as of this encounter Visit Diagnoses Diagnosis Left knee pain, unspecified chronicity documented in this encounter Care Teams Mayonnaise Mixer Relationship Specialty Start Date End Date Baron Hobson PA [address] [place] [address] PCP - General Family Medicine 02/01/23 documented as of this encounter
--- OUTSIDE RECORDS SUMMARY | 2023-12-17 01:43 | XMS_ITS | Encounter Summary ---
Author Organization [facility] Address [facility] [place] [address] Care Team Providers Care Spa Experience Coordinator Name Role Phone Unknown Primary Care Provider Unavailabl e Encounter Details Date Type Department Care Team (Late st Contact Info) Description 01/04/2023 10:30 AM EDT Office [place] [phone] Darwin Noel MD [facility] [place] [address] Thyroid nodule (Primary Dx) Social History Tobacco Use Types Packs/Day Years [...] Sign Reading Time Taken Comments Blood Pressure 104/64 01/04/2023 10:05 AM EDT Pulse 83 01/04/2023 10:05 AM EDT Temperature - - Respiratory Rate - - Oxygen Saturation 99% 01/04/2023 10: 05 AM EDT Inhaled Oxygen Concentration - - Weight 104.9 kg (231 lb 3.2 oz) 023 10:05 AM EDT Height 162.6 cm (5' 4) 01/04/2023 10:0 5 AM EDT Body Mass Index 39.69 01/04/2023 10:05 AM EDT documented in this encounter Progress Notes * Darwin Noel MD - 01/04/2023 10:30 AM EDT Images from the original note were not included. Endocrinology Outpatient Follow up Name of patient: Holly Mcnally : 1980 Date of visit: 01/04/23 Reason for follow up: thyroid nodule Plan from previous office note on 09/05/21 from Hector Navas DO 40-year-old female presents for evaluation of thyroid nodules. She also has symptoms of decreased appetite with associated weight loss and cold intolerance. She reports that she recently has had thyroid labs checked but we do not have a copy of these. We will try to obtain these from [facility]. Bedside ultrasound today reveals bilateral mixed solid/cystic nodules in either which FNA criteria. Please see separate ultrasound report for details. Recommend repeat ultrasound in 1 year to assess stability. -Repeat thyroid ultrasound in 1 year. A note will be sent to the referring provider Return to clinic in 12 months Interval History: Patient felt that she has a lot of anxiety and depression. She was recently diagnosed with bipolar disorder. Patient felt tired. Gained 30 lbs in a year. Atco something stuck in her throat. Denied dysphagia. Has some intermittent L leg swelling. Denied any neck swelling, neck pain, persistent hoarseness, difficulty breathing. Summary: Holly Mcnally is a 42 y.o. female with significant PMH anxiety/depression, fibromyalgia, and bipolar disorder, here in endocrinology clinic for follow up of thyroid nodule. She does not recall how it was first discovered. She does not have significant compressive symptoms. There is family history of thyroid cancer in her grandmother. She has not been exposed to any radiation that she knows of. Total T3 was 160 in Jun 2022. Thyroid nodule measurement Date R thyroid nodule L thyroid nodule 09/05/2021 Inferior pole 1.1 x 0.6 x 0.7 cm TR4 Mid-inferior pole 1.1 x 0.8 x 1.2 cm TR3 0.6 x 0.2 x 0.5 cm TR4 01/04/2022 Inferior pole 1.2 x 0.7 x 1.0 cm TR4 Superior pole 0.6 x 0.4 x 0.6 cm (spongiform) Mid-inferior pole 1.0 x 0.7 x 1.0 cm TR4 Inferior 0.7 x 0.3 x 0.8 cm TR4 Physical Exam: BP 104/64 Pulse 83 Ht 162.6 cm (5' 4) Wt 104.9 kg (231 lb 3.2 oz) SpO2 99% BMI 39.69 kg/m?? General appearance: No apparent distress, resting comfortably in chair. HEENT: Moist mucous membranes, Neck supple, no palpable thyroid nodule CVS: normal heart rate, regular rhythm Pulmonary: equal chest expansion, no audible wheezing GI: Abdomen soft, no tenderness to palpation, non-distended. Derm: no hyperpigmentation, acanthosis nigricans, ulcers. Neuro: Grossly non focal. MSK: no leg edema Social History: Social History Socioeconomic History Marital status: Single Spouse name: Not on file Number of children: Not on file Years of education: Not on file Highest education level: Not on file Occupational History Not on file Tobacco Use Smoking status: Former Packs/day: 0.75 Years: 22.00 Pack years: 16.50 Types: Cigarettes Quit date: 10/28/2020 Years since quittin.1 Smokeless tobacco: Never Tobacco comments: smokes 8-10 cig per day Vaping Use Vaping Use: Never used Substance and Sexual Activity Alcohol use: Never Drug use: Never Sexual activity: Not on file Other Topics Concern Not on file Social History Narrative Not on file Social Determinants of Health Financial Resource Strain: Not on file Food Insecurity: Not on file Transportation Needs: Not on file Physical Activity: Not on file Housing Stability: Not on file PMH: Past Medical History: Diagnosis Date Anxiety Asthma Bronchitis Cerebral aneurysm Depression Headache PTSD (post-traumatic stress disorder) Family History: Family History Problem Relation Age of Onset Cancer Maternal Aunt Cancer Maternal Grandmother Osteoporosis Neg Hx Allergies: Allergies Allergen Reactions Amoxicillin Nausea And Vomiting Passed out Aspirin Other Reaction(s): Anxiety, sobbing Prozac [Fluoxetine] Anxiety Zoloft [Sertraline] Anxiety Worsen her mood symptoms Asa Buff (Mag Carb-Al Glyc) [Aspirin, Buffered] Anxiety Codeine Nausea Only Nsaids (Non-Steroidal Anti-Inflammatory Drug) Palpitations Current Medications: multivit-min/ferrous fumarate (MULTI VITAMIN ORAL) UNABLE TO FIND albuteroL 90 mcg/actuation HFA Aerosol Inhaler b complex vitamins Capsule ascorbic acid, Vitamin C, (Vitamin C) 250 mg Tablet EPINEPHrine 0.3 mg/0.3 mL Auto-Injector FLUoxetine (PROzac) 20 mg Capsule Xopenex HFA 45 mcg/actuation HFA Aerosol Inhaler Recent Imaging and Labs: Thyroid US 01/04/23 There are 3 TR4 nodules that increases in size comparing to the previous US but do not meet criteria for FNA. No suspicious cervical LN. R thyroid nodule L mid-inferior pole nodule L inferior pole nodule Assessment and Plan: Holly Mcnally is a 42 y.o. female with significant PMH anxiety/depression, fibromyalgia, and bipolar disorder, here in endocrinology clinic for follow up of thyroid nodules. Thyroid nodules Patient has 3 TR4 nodules on both thyroid glands. The nodule size increases over a year but not reaching the cut off for FNA biopsy. We will get the TFT today for baseline as patient felt fatigue andgained weight. We recommend repeat thyroid US in 1 year. - TSH - f/u in 1 year for thyroid US Thank you for allowing us to provide care for your patient. D/W Dr. Adali Noel MD [facility] PGY-5, Fellow Pager #[phone] * Darwin Noel MD - 01/04/2023 10:30 AM EDT ENDOCRINOLOGY THYROID ULTRASOUND REPORT Patient:Holly Mcnally, [id number] Date of exam: 01/04/2023 Indication: thyroid nodules Comparison: thyroid US 09/05/2021 Performed by: Darwin Noel MD Real time images of the thyroid gland were obtained using a BK US machine. All measurements are given as Longitudinal/Sagittal x AP x Transverse. Right Lobe: The right lobe measures 2.5 x 1.6 x 1.9 cm, with heterogeneous echotexture. There is a nodule measuring 1.2 x 0.7 x 1.0 cm, located in the lower pole with the following sonographic pattern: solid hypo echogenicity Ill-defined margins Comet-tail intra-nodular calcifications Wider than tall shape Perinodular blood flow on color doppler Based on TIRADS classification, this nodule represents a TR4 moderately suspicious nodule. Left Lobe: The left lobe measures >3.8 x 1.6 x 1.8 cm, with heterogeneous echotexture. There are 3 nodules. #1 nodule measuring 0.6 x 0.4 x 0.6 cm, located in the upper pole with the following sonographic pattern: spongiform Based on TIRADS classification, this nodule represents a TR1 benign nodule. #2 nodule measuring 1.0 x 0.7 x 1.0 cm, located in the mid-lower pole with the following sonographic pattern: solid hypo echogenicity smooth margins Comet-tail intra-nodular calcifications Wider than tall shape perinodular blood flow on color doppler Based on TIRADS classification, this nodule represents a TR4 moderately suspicious nodule. #3 nodule measuring 0.7 x 0.3 x 0.8 cm, located in the lower pole with the following sonographic pattern: solid hypo echogenicity smooth margins no intra-nodular calcifications Wider than tall shape perinodular blood flow on color doppler Based on TIRADS classification, this nodule represents a TR4 moderately suspicious nodule. Date R thyroid nodule L thyroid nodule 09/05/2021 Inferior pole 1.1 x 0.6 x 0.7 cm TR4 Mid-inferior pole 1.1 x 0.8 x 1.2 cm TR3 0.6 x 0.2 x 0.5 cm TR4 01/04/2022 Inferior pole 1.2 x 0.7 x 1.0 cm TR4 Superior pole 0.6 x 0.4 x 0.6 cm (spongiform) Mid-inferior pole 1.0 x 0.7 x 1.0 cm TR4 Inferior 0.7 x 0.3 x 0.8 cm TR4 Isthmus: The isthmus measures 0.4cm. Lateral neck: I examined the lateral neck regions and saw no morphologically abnormal lymph nodes Impression: There are 3 TR4 nodules that increases in size comparing to the previous US but do not meet criteria for FNA. No suspicious cervical LN. Recommendation: Repeat thyroid US in 1 year. Darwin Noel MD [facility] PGY-4, Fellow Pager #[phone] * EchtFrancisca MD - 01/04/2023 10:30 AM EDT Patient seen with Dr. Noel. I agree with the assessment and plan as documented and was involved in all medical decision making. Based on imaging, do not need to FNA her thyroid nodules but recommend repeat ultrasound in 1 year. Francisca Bro MD Director Of Product Marketingintegrated pest management technician Endocrinology Section [facility] documented in this encounter Plan of Treatment Upcoming Encounters Date Type Department Care Team (Late st Contact Info) Description 01/01/2024 9:10 AM EDT Office Visit Orthopaedics at [place] [phone] Clinic, Dr Alfaro Team None 01/02/2024 11:10 AM EDT Appointment MRI at [place] [id number], [place] [address] 01/02/2024 2:00 PM EDT Office Visit Neurosurgery at [place] [phone] [place] [address] 01/10/2024 11:30 AM EDT Office Visit Endocrinology at [place] [phone] Alma Delia Martinez MD [facility] [place] [address] documented as of this encounter Procedures Procedure Name Priority Date/Time Associated Diagnosis Comments HC VENIPUNCTURE Routine 01/04/2023 11:24 AM EDT Thyroid nodule documented in this encounter Results * TSH Morgan (01/04/2023 11:24 AM EDT) TSH 1.46 0.27 - 4.20 mcIU/mL [facility] Comment: Reference Interval (mcIU/mL): Females: ??First Trimester: 0.23-3.88 ??Second Trimester: 0.22-3.90 ??Third Trimester: 0.44-4.66 Blood 01/04/2023 11:2 4 AM EDT 01/04/2023 11:49 AM EDT Narrative Resulting Agency Comment Spec In Lab Francisca Bro MD CHEMISTRY ORDERABLES [facility] [place] [address] documented in this encounter Visit Diagnoses Diagnosis Thyroid nodule- Primary Nontoxic uninodular goiter documented in this encounter Care Teams Spa Experience Coordinator Relationship Specialty Start Date End Date Unknown None PCP - General 02/24/22 01/31/23 documented as of this encounter
--- OUTSIDE RECORDS SUMMARY | 2023-12-17 01:43 | XMS_ITS | Encounter Summary ---
Author Organization [facility] [place] [address] Care Team Providers Care Cat Dog Or Other Pet Groomer Name Role Phone Baron Hobson Primary Care Provider [phone]- [phone] Reason for Referral * Psychiatric (Routine) - Closed Specialty Diagnoses / Procedures Referred By Contac t Referred To Contact Psychiatry Diagnoses JODIE (generalized anxiety disorder) Post-traumatic stress disorder, unspecified Depression, unspecified depression type Baron Hobson PA [address] [place] [address] [facility] [address] [place] [phone] Referral ID Status Reason Start Date Expiration Date V isits Requested Visits Authorized [id number] Closed Consult, Test & Treat PCP Updated and/or Approved 02/01/2023 02/01/2024 6 6 Encounter Details Date Type Department Care Team (Latest Contact Info) Description 02/01/2023 Transcribe Orders eDH Incoming Referrals [phone] Baron Hobson PA [address] [place] [address] JODIE (generalized anxiety disorder); Post-traumatic stress disorder, unspecified; Depression, unspecified depression type Social History Tobacco Use Types Packs/Day Years [...] 9:10 AM EDT Office Visit Orthopaedics at [place] [address] Clinic, Dr Alfaro Team None 01/02/2024 11:10 AM EDT Appointment MRI at [place] [address] [address], [place] [address] 01/02/2024 2:00 PM EDT Office Visit Neurosurgery at [place] [address] [address], [place] [address] 01/10/2024 11:30 AM EDT Office Visit Endocrinology at [place] [address] [address] [facility] [place] [address] Scheduled Referrals Name Type Priority Associated Diagnoses Orde r Schedule Referral to Psychiatry Outpatient Referral Routine JODIE (generalized anxiety disorder) Post-traumatic stress disorder, unspecified Depression, unspecified depression type Ordered: 02/01/2023 documented as of this encounter Visit Diagnoses Diagnosis JODIE (generalized anxiety disorder) Generalized anxiety disorder Post-traumatic stress disorder, unspecified Depression, unspecified depression type documented in this encounter Care Teams Cat Dog Or Other Pet Groomer Relationship Specialty Start Date End Date Baron Hobson PA [address] [place] [address] PCP - General Family Medicine 02/01/23 documented as of this encounter
--- OUTSIDE RECORDS SUMMARY | 2023-12-17 01:43 | XMS_ITS | Encounter Summary ---
Author Organization [facility] [place] [address] Care Team Providers Care Content Director Name Role Phone Baron Hobson Primary Care Provider +1- [phone] Encounter Details Date Type Department Care Team (Late st Contact Info) Description 11/08/2023 Telephone [place] [address] Bindu Tamayo RN Social History Tobacco Use [...] Encounter - Bindu Tamayo RN - 11/08/2023 10:02 AM EDT Copied from [facility] #[id number]. Topic: Specialty Dept CRMs - Triage >> Nov 08, 2023 8:49 AM Ronaldo Momin wrote: Triage Message Specialist: Dennise Jaimes Relationship (if other than patient-full name): Patient Symptom: Vision changes Has patient experienced symptom before NA If patient has experienced symptom before, when was the last time this occurred 1 month ago Is patient currently having symptom Yes When did symptom begin 1 month ago Additional Comments: Patient called stating she saw her eye doctor last month and has vision changes in her right eye as she could not see the screen very well. Patient was put in reading glasses butvision is still not correct. Patient would like a referral to the eye clinic at if possible. Please contact at [phone]. documented in this encounter Plan of Treatment Upcoming Encounters Date Type Department Care Team (Late st Contact Info) Description 01/01/2024 9:10 AM EDT Office Visit Orthopaedics at [place] [address] Clinic, Dr Alfaro Team None 01/02/2024 11:10 AM EDT Appointment MRI at [place] [address] [address], [place] [address] 01/02/2024 2:00 PM EDT Office Visit Neurosurgery at [place] [address] [address], [place] [address] 01/10/2024 11:30 AM EDT Office [place] [address] Alma Delia Martinez MD [facility] [place] [address] documented as of this encounter Visit Diagnoses Not on filedocumented in this encounter Care Teams Content Director Relationship Specialty Start Date End Date Baron Hobson PA [address] [place] [address] PCP - General Family Medicine 02/01/23 documented as of this encounter
--- OUTSIDE RECORDS SUMMARY | 2023-12-17 01:43 | XMS_ITS | Encounter Summary ---
Author Organization [facility] Address [address] [place] [address] Care Team Providers Care Barometers Calibrator Name Role Phone Randell Haji MD Primary Care Provider [phone] Baron Hobson PA-C Primary Care Provider + Encounter Details Date Type Department Care Team (Late st Contact Info) Description 10/26/2021 Lab Requisition [facility] Pathology & Laboratory Medicine - [address] [address] Outr Resulting Lab, Provider Social History Tobacco [...] Info) Description 02/11/2024 13:15 EDT Office Visit [facility] Psychiatry - [address] [place], [place] [address] Shabana Cody MD MPH 111 [facility] [place], [address] [place] [phone] Laci Cheema MD [address] [place], [place] [address] documented as of this encounter Procedures Procedure Name Priority Date/Time Associated Diagnosis Comments RHEUMATOID FACTOR Routine 10/26/2021 11: 35 EDT HIGH SENSITIVITY C-REACTIVE PROTEIN (CARDIOVASCULAR DISEASE) Routine 10/26/2021 11:35 EDT ANTI NUCLEAR AB (UZIEL), IFA Routine 10/26/2021 11:35 EDT documented in this encounter Results * RHEUMATOID FACTOR (10/26/2021 11:35 EDT) [facility] Rheumatoid Factor <8.6 <12.0 IU/mL 10/26/2021 21:56 EDT [facility] Blood VENOUS BLOOD / Unknown 10/26/2021 11:35 EDT 10/26/2021 21:35 EDT Provider Outr Resulting Lab CHEMISTRY & BLOOD GAS ORDERABLES Performing Organization Address [facility] Co de Phone Number [facility] [address] [place] [address] * ANTI NUCLEAR AB (UZIEL), IFA (10/26/2021 11:35 EDT) [facility] UZIEL Interpretation Negative Negative 2021 14:10 EDT [facility] Comment: Cytoplasmic Pattern Noted, Reticular/Mitochondrion-like No titer performed, UZIEL Screen is negative. Blood VENOUS BLOOD / Unknown 10/26/2021 11:35 EDT 10/26/2021 21:35 EDT Narrative [facility] - 10/27/2021 14:10 EDT Results were obtained with the INOVA NOVA Lite HEp-2 UZIEL Kit by indirect immunofluorescence. Provider Outr Resulting Lab IMMUNOLOGY A ND SEROLOGY ORDERABLES Performing Organization Address [facility] Co de Phone Number [facility] [address] [place] [address] * HIGH SENSITIVITY C-REACTIVE PROTEIN (CARDIOVASCULAR DISEASE) (10/26/2021 11:35 EDT) [facility] High Sensitivity CRP 1.64 See Note mg/L 10/26/2021 21:56 EDT [facility] Comment: Reference Range: ??Low Risk: ? <1.0 mg/L ??Average Risk: ?? 1.0 - 3.0 mg/L ??High Risk: ?>3.0 mg/L ??Indeterminate*: >10.0 mg/L ??*May be an indication of another source of inflammation or infection Blood VENOUS BLOOD / Unknown 10/26/2021 11:35 EDT 10/26/2021 21:35 EDT Provider Outr Resulting Lab CHEMISTRY & BLOOD GAS ORDERABLES [facility] [address] [place] [address] documented in this encounter Visit Diagnoses Not on filedocumented in this encounter Care Teams Barometers Calibrator Relationship Specialty Start Date End Date Randell Haji MD [address] [place] [address] PCP - General 04/04/11 12/12/23 Baron Hobson PA-C [address] [place] [address] PCP - General 12/13/23 documented as of this encounter
--- OUTSIDE RECORDS SUMMARY | 2023-12-17 01:43 | XMS_ITS | Encounter Summary ---
Author Organization [facility] [place] [address] Care Team Providers Care Molecular Genetic Pathologist Name Role Phone Baron Hobson Primary Care Provider [phone] Encounter Details Date Type Department Care Team (Late st Contact Info) Description 07/02/2023 Telephone [place] [address] Darwin Noel MD [facility] [place] [address] Social History Tobacco Use Types Packs/Day Years [...] encounter Miscellaneous Notes * Telephone Encounter - Agatha Betts RN - 07/02/2023 9:02 AM EST Called and spoke with patient, states that she woke up 3 times in the middle of the night having SOB/labored breathing. Patient states she is having a difficult time swallowing. Patient states that she was on her way to the ED. Author let patient know that was the correct course of action, she should get evaluated at nearest ED. Patient states that she is almost there. * Telephone Encounter - Jeniffer Martinez - 07/02/2023 8:47 AM EST Spoke with Patient. She was having shortness of breath. Tenderness on neck. Issues swallowing. Patient stated she was going to [facility] ED. documented in this encounter Plan of Treatment Upcoming Encounters Date Type Department Care Team (Late st Contact Info) Description 01/01/2024 9:10 AM EDT Office [place] [address] Clinic, Dr Alfaro Team None 01/02/2024 11:10 AM EDT Appointment MRI at [place] [phone] Dennise Jaimes, [place] [address] 01/02/2024 2:00 PM EDT Office Visit Neurosurgery at [place] [phone] Dennise Jaimes, [place] [address] 01/10/2024 11:30 AM EDT Office [place] [phone] Alma Delia Martinez MD [facility] [place] [address] documented as of this encounter Visit Diagnoses Not on filedocumented in this encounter Care Teams Molecular Genetic Pathologist Relationship Specialty Start Date End Date Baron Hobson PA [address] [place] [address] PCP - General Family Medicine 02/01/23 documented as of this encounter
--- OUTSIDE RECORDS SUMMARY | 2023-12-17 01:43 | XMS_ITS | Encounter Summary ---
Author Organization [facility] [place] [place] [address] Care Team Providers Care Stretch Press Operator Name Role Phone Baron Hosbon Primary Care Provider [phone]- [phone] Encounter Details Date Type Department Care Team (Late st Contact Info) Description 09/30/2023 [place] [phone] Eugenio Tee, RN Social History Tobacco Use Types Packs/Day [...] encounter Miscellaneous Notes * Telephone Encounter - Eugenio Tee RN - 09/30/2023 9:33 AM EDT Copied from [facility] #[id number]. Topic: Specialty Dept CRMs - Generic Call >> Sep 30, 2023 8:52 AM Orquidea Nunez wrote: Specialist: Dennise Jaimes APRN Relationship (if other than patient-full name): Holly Mcnally Reason for Call: patient is scheduled for her annual follow up, on 01-02-24, is requesting medicationfor the MRI sedation and asking if a script can be sent to [facility], [address] [place] [address] , patient also has a question about WHEN to take the medication, pleasesend instructions through her [facility] portal, patient has someone driving her to this appointment. documented in this encounter Plan of Treatment Upcoming Encounters Date Type Department Care Team (Late st Contact Info) Description 01/01/2024 9:10 AM EDT Office Visit Orthopaedics at [place] [address] Clinic, Dr Alfaro Team None 01/02/2024 11:10 AM EDT [place] [address] Dennise Jaimes, [facility] [place] [address] 01/02/2024 2:00 PM EDT Office Visit Neurosurgery at [place] [address] Dennise Jaimes, [facility] [place] [address] 01/10/2024 11:30 AM EDT Office Visit [place] [address] Alma Delia Martinez MD [facility] [place] [address] documented as of this encounter Visit Diagnoses Not on filedocumented in this encounter Care Teams Stretch Press Operator Relationship Specialty Start Date End Date Baron Hobson PA [address] [place] [address] PCP - General Family Medicine 02/01/23 documented as of this encounter
--- OUTSIDE RECORDS SUMMARY | 2023-12-17 01:43 | XMS_ITS | Encounter Summary ---
Author Organization [facility] Address [address] [place] [address] Care Team Providers Care Nonprofit Director Name Role Phone Randell Haji MD Primary Care Provider [phone] Baron Hobson PA-C Primary Care Provider + Encounter Details Date Type Department Care Team (Latest Contact Info) Description 10/12/2022 Lab Requisition [facility] Pathology & Laboratory Medicine - [facility] [address] [place] [address] Baron Hobson PA-C [address] [place] [address] Encounter for gynecological examination (general) (routine) without abnormal findings Social History Tobacco Use Types Packs/Day Years [...] Info) Description 02/11/2024 13:15 EDT Office Visit [facility] Psychiatry - [address] [id number] October, Shabana Vera MD MPH [address] [facility], [place], [address] [place] [address] Laci Cheema MD [address] [place], [place] [address] documented as of this encounter Procedures Procedure Name Priority Date/Time Associated Diagnosis Comments PAP TEST Today 10/10/2022 14:30 EDT Encounter for gynecological examination (general) (routine) without abnormal findings HPV DNA DETECTION WITH GENOTYPING, PCR Today 10/10/2022 14:30 EDT Encounter for gynecological examination (general) (routine) without abnormal findings documented in this encounter Results * HUMAN PAPILLOMAVIRUS (HPV) DETECTION-HIGH RISK TYPES (10/10/2022 14:30 EDT) HPV other High Risk types, PCR Negative Negative 10/24/2022 16:42 EDT [facility] Comment:No E6 or E7 mRNA is detected from HPV types 16,18,31,33,35,39,45,51,52,56,58,59,66, and 68 by dealer compliance representative mediated amplification. Papanicolaou smear specimen (specimen) CERVIX UTERI STRUCTURE / Unknown 10/10/2022 14:30 EDT 10/23/2022 16:36 EDT Baron Hobson PA-C MICROBIOLOGY - G ENERAL ORDERABLES [facility] [address] [place] [address] * PAP TEST (10/10/2022 14:30 EDT) Specimens A. Cervix and/or Endocervix , ThinPrep Imaging System with Manual Evaluation 10/24/2022 16:42 EDT [facility] Specimen Adequacy Satisfactory for Evaluation - transformation zone component present 10/24/2022 16:42 EDT [facility] General Categorization Negative for intraepithelial lesion or malignancy 10/24/2022 16:42 EDT [facility] Descriptive Diagnosis Reactive cellular changes associated with inflammation present (includes repair). 10/24/2022 16:42 EDT [facility] Attestation By the signature below, the attending physician certifies that they have personally conducted a gross and/or microscopic examination of the described specimens and rendered or confirmed the above diagnosis. 10/24/2022 16:42 EDT [facility] at 1641 Clinical History See below 10/25/19 16:42 EDT [facility] HPV The result for the Human Papillomavirus (HPV) Detection-High Risk Types is Negative. No E6 or E7 mRNA is detected from HPV types 16,18,31,33,35,39 ,45,51,52,56,58,5 9,66, and 68 by dealer compliance representative mediated amplification.Santa ting was performed on specimen [id number] and was resulted on 10/24/2022 1641 EDT by SARA, LAB INSTRUMENT RESULTS IN 10/24/2022 16:42 EDT [facility] Performing Lab [facility] 10/24/2022 16:42 EDT [facility] Scanned Images 10/24/2022 16:42 EDT [facility] Papanicolaou smear specimen (specimen) CERVIX UTERI STRUCTURE / Unknown 10/10/2022 14:30 EDT 10/12/2022 12:37 EDT Baron Hobson PA-C PATHOLOGY ORDERA JACQUELINE [facility] [address] [place] [address] documented in this encounter Visit Diagnoses Diagnosis Encounter for gynecological examination (general) (routine) without abnormal findings documented in this encounter Care Teams Nonprofit Director Relationship Specialty Start Date End Date Randell Haji MD [address] [place] [address] PCP - General 04/04/11 12/12/23 Baron Hobson PA-C [address] [place] [address] PCP - General 12/13/23 documented as of this encounter
--- OUTSIDE RECORDS SUMMARY | 2023-12-17 01:43 | XMS_ITS | Encounter Summary ---
Author Organization [facility] [place] [address] Care Team Providers Care Lobbyist Name Role Phone Baron Hobson Primary Care Provider [phone] Encounter Details Date Type Department Care Team (Late st Contact Info) Description 07/02/2023 Telephone [place] [address] Darwin Noel MD [facility] [place] [address] Social History Tobacco Use Types Packs/Day Years [...] encounter Miscellaneous Notes * Telephone Encounter - Darwin Nole MD - 07/02/2023 2:47 PM EST Return pt call Patient had SOB, difficult breathing and swallowing. She went to the ED and was diagnosed with cold. US neck was normal. She was prescribed steroid for 3 days. She will see if it improves her symptoms. documented in this encounter Plan of Treatment Upcoming Encounters Date Type Department Care Team (Late st Contact Info) Description 01/01/2024 9:10 AM EDT Office Visit Orthopaedics at [place] [address] Clinic, Dr Alfaro Team None 01/02/2024 11:10 AM EDT Appointment MRI at [address] Dennise Jaimes, [facility] [address] 01/02/2024 2:00 PM EDT Office Visit Neurosurgery at [place] [address] Dennise Jaimes, [facility] [address] 01/10/2024 11:30 AM EDT Office [place] [address] Alma Delia Martinez MD [facility] [place] [address] documented as of this encounter Visit Diagnoses Not on filedocumented in this encounter Care Teams Lobbyist Relationship Specialty Start Date End Date Baron Hobson PA [address] [place] [address] PCP - General Family Medicine 02/01/23 documented as of this encounter
--- OUTSIDE RECORDS SUMMARY | 2023-12-17 01:43 | XMS_ITS | Encounter Summary ---
[place] [address] Care Team Providers Care Production Utility Worker Name Role Phone Unknown Primary Care Provider Unavailabl e Reason for Referral * Diagnostic Test (Routine) - Authorized Specialty Diagnoses / Procedures Referred By Jesika maddox Referred To Contact Radiology Diagnoses Aneurysm of ophthalmic artery Procedures MRI Angiogram Head wo Contrast (Generic) [place] [address] [place] [address] Referral ID Status Reason Start Date Expiration Date Visits Requested Visits Authorized [id number] Authorized Specialty Service Requested 12/21/2022 06/23/2024 1 1 Encounter Details Date Type Department Care Team (Late st Contact Info) Description 12/21/2022 1:00 PM EDT [place] [address] [place] [address] Aneurysm of ophthalmic artery Social History Tobacco Use Types Packs/Day Years [...] Sign Reading Time Taken Comments Blood Pressure 103/61 12/21/2022 12:53 PM EDT Pulse 81 12/21/2022 12:53 PM EDT Temperature 36.7 ??C (98 ??F) 12/21/2022 12: 53 PM EDT Respiratory Rate 18 12/21/2022 12:5 3 PM EDT Oxygen Saturation 97% 12/21/2022 12: 53 PM EDT Inhaled Oxygen Concentration - - Weight 105.6 kg (232 lb 12.8 oz) 2022 12:53 PM EDT Height 162.6 cm (5' 4) 12/21/2022 12:5 3 PM EDT Body Mass Index 39.96 12/21/2022 12:53 PM EDT documented in this encounter Progress Notes * Dennise Jaimes, MOLECULAR TECHNOLOGIST - 12/21/2022 1:00 PM EDT ASSESSMENT/PLAN: 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 Characteristics of aneurysm that can be concerning for hemorrhage or growth are family history of cerebral aneurysm, cigarette smoking, hypertension, and size/shape/location of aneurysm. You do not have any of these characteristics in your aneurysm. For an aneurysm of this size, the risk of hemorrhage is approximately 1% every 5 years. In this case, the treatment risk tends to outweigh the risk of aneurysm. You do not need to change your lifestyle or avoid activities because of the aneurysm. While it is extremely unlikely, you should seek emergent attention at your local ER for a sudden, severe headache that is unlike any other you've had before. This headache is often accompanied by neck pain, light sensitivity, and/or nausea and vomiting. We will repeat your MRA in 1 year at [facility]. Please feel free to call in the meantime with any questions or concerning symptoms. I reviewed the imaging studies with the patient. I noted the finding on the left could represent ananeurysm or infundibulum. I distinguished the two clarifying that the former is a pathologic entitywhile the latter is a normal anatomic variant. Regardless of the exact nature of the finding, I noted that the management at this time is the same: continued imaging surveillance. I recommended a follow-up in 1 year with a repeat MRA. 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 Cerebral angiogram 2019, broad necked, would require flow diverting stent. Followed with serial MRA by Dr. Hernandez. 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 Facial droop Chronic pain of left ankle Chronic mastitis of right breast HISTORY: Holly Mcnally Returns in followup with MRA. Feels well with no symptoms referable to aneurysm. Has been happy with observation due to concerns for risk with treatment. PHYSICAL EXAM: No acute distress Awake, Alert, Interactive Pupils equal and reactive Moving all extremities with full strength Gait independent and stable IMAGING & OTHER RESULTS: MRA head today personally reviewed. 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 Characteristics of aneurysm that can be concerning for hemorrhage or growth are family history of cerebral aneurysm, cigarette smoking, hypertension, and size/shape/location of aneurysm. You do not have any of these characteristics in your aneurysm. For an aneurysm of this size, the risk of hemorrhage is approximately 1% every 5 years. In this case, the treatment risk tends to outweigh the risk of aneurysm. You do not need to change your lifestyle or avoid activities because of the aneurysm. While it is extremely unlikely, you should seek emergent attention at your local ER for a sudden, severe headache that is unlike any other you've had before. This headache is often accompanied by neck pain, light sensitivity, and/or nausea and vomiting. We will repeat your MRA in 1 year at [facility]. Please feel free to call in the meantime with any questions or concerning symptoms. I reviewed the imaging studies with the patient. I noted the finding on the left could represent ananeurysm or infundibulum. I distinguished the two clarifying that the former is a pathologic entitywhile the latter is a normal anatomic variant. Regardless of the exact nature of the finding, I noted that the management at this time is the same: continued imaging surveillance. I recommended a follow-up in 1 year with a repeat MRA. documented in this encounter Plan of Treatment Upcoming Encounters Date Type Department Care Team (Late st Contact Info) Description 01/01/2024 9:10 AM EDT Office Visit Orthopaedics at [place] [phone] Clinic, Dr Alfaro Team None 01/02/2024 11:10 AM [place] [phone] [place] [address] 01/02/2024 2:00 PM EDT Office Visit Neurosurgery at [place] [phone] [place] [address] 01/10/2024 11:30 AM EDT Office [place] [address] Alma Delia Martinez MD [facility] [place] [address] Scheduled Orders Name Type Priority Associated Diagnoses Orde r Schedule MRI Angiogram Head wo Contrast (Generic) Imaging Routine Aneurysm of ophthalmic artery Expected: 12/22/2023, Expires: 06/23/2024 documented as of this encounter Visit Diagnoses Diagnosis Aneurysm of ophthalmic artery Cerebral aneurysm, nonruptured documented in this encounter Care Teams Production Utility Worker Relationship Specialty Start Date End Date Unknown None PCP - General 02/24/22 01/31/23 documented as of this encounter
--- OUTSIDE RECORDS SUMMARY | 2023-12-17 01:43 | XMS_ITS | Clinical Summary ---
Author Organization [facility] Address [facility] [place] [address] Care Team Providers Care Business Integration Manager Name Role Phone Baron Hobson Primary Care Provider [phone]- [phone] Allergies Active Allergy Reactions Criticality Noted Date Comments Amoxicillin Nausea And Vomiting High 09/16/2018 Passed out Aspirin, Buffered 10/07/2015 Anxiety Aspirin High 03/26/2020 Other Reaction(s): Anxiety, sobbing Codeine Nausea Only 10/07/2015 Nsaids (Non-Steroidal Anti-Inflammatory Drug) Palpitations 10/07/2015 Fluoxetine Anxiety High 12/21/2022 Sertraline Anxiety High 12/21/2022 Worsen her mood symptoms Medications Medication Sig Dispensed Refills Start Date End Date Status Xopenex HFA 45 mcg/actuation HFA Aerosol Inhaler as needed. 10/08/2019 Active ascorbic acid, Vitamin C, (Vitamin C) 250 mg Tablet Take 250 mg by mouth as needed. When remembered Active albuteroL 90 mcg/actuation HFA Aerosol Inhaler INHALE 2 PUFFS EVERY 6 HOURS NEEDED FOR SHORTNESS OF BREATH OR WHEEZING 10/14/2021 Active b complex vitamins Capsule Take 1 capsule by mouth daily. Active EPINEPHrine 0.3 mg/0.3 mL Auto-Injector as needed. Active multivit-min/ferrous fumarate (MULTI VITAMIN ORAL) Take by mouth daily. Active UNABLE TO FIND 2 times daily. Calm aid.. Active cyclobenzaprine (Flexeril) 5 mg tablet Take 5 mg by mouth nightly as needed (PRN). 05/07/2023 Active diazePAM (Valium) 5 mg tablet 1 tablet 1 hour prior to MRI. Repeat dose with 1 tablet at time of MRI, for total dose of 10mg. 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 Cerebral angiogram 2019, broad necked, would require flow diverting stent. Followed with serial MRA by Dr. Hernandez. 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 Assessment & Plan (12/21/2022 1:45 PM EDT): Your aneurysm has not changed. Characteristics of [...] repeat your MRA in 1 year at [facility]. Please feel free to call in the meantime with any questions or concerning symptoms. I reviewed the imaging studies with the patient. I noted the finding on the left could represent an aneurysm or infundibulum. I distinguished the two clarifying that the former is a pathologic entity while the latter is a normal anatomic variant. Regardless of the exact nature of the finding, I noted that the management at this time is the same: continued imaging surveillance. I recommended a follow-up in 1 year with a repeat MRA. 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 Question of small infundibulum on the L, which we will continue to monitor. Infundibulum is a normal variant, and does not pose risk of rupture. If a true aneurysm on the L, then risk is similar to that on the right and treatment risk of any aneurysms seen on today's scan is higher than aneurysm itself. Repeat MRA 1 year. Facial droop 10/03/2018 Chronic pain of left ankle 09/19/2018 Chronic mastitis of right breast 10/07/2015 Encounters Date Type Department Care Team Description 11/08/2023 [place] [address] Bindu Tamayo RN 11/08/2023 [place] [address] Bindu Tamayo RN 09/30/2023 [place] [address] Eugenio Tee RN from Last 3 Months Family History Medical History Relation Comments Cancer Maternal Aunt Cancer Maternal Grandmother Osteoporosis Neg Hx Relation Status Comments Maternal Aunt Maternal Grandmother Social History Tobacco Use Types Packs/Day Years Used Date Smoking Tobacco: Former Cigarettes 0.8 22 0 10/28/1998 - 10/28/2020 Smokeless Tobacco: Never Tobacco Cessation:Ready to Q uit: Yes; Counseling Given: Yes Comments:smokes 8-10 cig per day Alcohol Use Standard Drinks/Week Comments Never 0 (1 standard drink = 0.6 oz pur e alcohol) Sex and Gender Information Value Date Recorded Sex Assigned at Not on file Gender Identity Not on file Sexual Orientation Not on file Last Filed Vital Signs Vital Sign Reading Time Taken Comments Blood Pressure 104/64 01/04/2023 10:05 AM EDT Pulse 83 01/04/2023 10:05 AM EDT Temperature 36.7 ??C (98 ??F) 12/21/2022 12:53 PM EDT Respiratory Rate 18 12/21/2022 12:53 PM EDT Oxygen Saturation 99% 01/04/2023 10:05 AM EDT Inhaled Oxygen Concentration - - Weight 111.1 kg (245 lb) 09/30/2023 8:38 AM EDT Height 160 cm (5' 3) 09/30/2023 8:38 AM EDT Body Mass Index 43.4 09/30/2023 8:38 AM EDT Plan of Treatment Upcoming Encounters Date Type Department Care Team (Late st Contact Info) Description 01/01/2024 9:10 AM EDT Office [place] [address] Clinic, Dr Alfaro Team None 01/02/2024 11:10 AM [place] [address] Dennise Jaimes, OPTICAL WORKER [facility] [place] [address] 01/02/2024 2:00 PM EDT Office [place] [address] Dennise Jaimes, [place] [address] 01/10/2024 11:30 AM EDT Office [place] [address] Alma Delia Martinez MD [facility] [place] [address] Health Maintenance Due Date Last Done Comments Pneumococcal Vaccine: At-Risk 5-64yrs (1 of 2 - PCV) 0 1988 HIV screen 2000 Hepatitis C Screening 2000 Lipid Screening 2000 Hepatitis B vaccine (0-59 yrs) (1) 2001 Tdap adult 2001 Tetanus vaccine 2001 HPV test 2012 PAP Smear 2012 Breast Cancer Share Decision Needed 2022 Breast Cancer screening 2022 10/07/2015 Diabetes Screening (HgbA1C or Glucose) 2022 Covid-19 Vaccine ( - 2022-24 season) 2023 Influenza (Flu) vaccine (1 o f 1 - Influenza standard series) 02/02/2024 Procedures Procedure Name Priority Date/Time Associated Diagnosis Comments BASIC METABOLIC PANEL (NON-FASTING) STAT 08/12/2018 3:45 PM EDT MAMMO 2D DIGITAL DIAG AKOSUA WITH CAD BILATERAL Routine 10/07/2015 12:51 PM EDT Breast pain from Last 3 Months or Most Recently Relevant to Health Maintenance Results * (ABNORMAL) Basic Metabolic Panel (non-fasting) (08/12/2018 3:45 PM EDT) Glucose Lvl 85 65 - 199 mg/dL [facility] Comment:Diabetes: >=200 mg/d L plus symptoms BUN 7(L) 8 - 18 mg/dL [facility] Creatinine 0.75 0.70 - 1.20 mg/dL [facility] Sodium 143 135 - 145 mmol/L [facility] Potassium 3.9 3.5 - 5.0 mmol/L [facility] Comment: Please note: ??Patients with WBC >100,000 may have falsely elevated Potassium levels. ??For accurate Potassium quantification in these patients send serum separator tube (gold top) for subsequent determinations. ??Contact the Clinical Chemistry Laboratory if there are any questions. Chloride 103 98 - 107 mmol/L [facility] CO2 26 22 - 31 mmol/L [facility] Anion Gap 14 5 - 15 mmol/L [facility] Calcium 10.0 8.5 - 10.5 mg/dL [facility] Estimated GFR 103 >=60 mL/min/1. 73 m?? [facility] Comment: The eGFR was calculated using the CKD-EPI equation. As with all creatinine based estimates of kidney function, eGFR values calculated with the CKD-EPI equation are not accurate in patients with acute kidney failure, extremes of body mass or the acutely ill. [email or web address]/[email or web address] eGFR 120 >=60 mL/min/1. 73 m?? [facility] Comment: The eGFR was calculated using the CKD-EPI equation. As with all creatinine based estimates of kidney function, eGFR values calculated with the CKD-EPI equation are not accurate in patients with acute kidney failure, extremes of body mass or the acutely ill. [email or web address]/[email or web address] Blood specimen (specimen) 08/12/2018 3:45 PM EDT 08/12/2018 4:15 PM EDT Narrative Resulting Agency Comment Spec In Lab Nathaniel Venegas MD CHEMISTRY ORDERABLES [facility] [place] [address] * Mammo Diag Akosua Bilateral (10/07/2015 12:51 PM EDT) Anatomical Region Laterality Modality Breast Bilateral Mammography Impressions 10/07/2015 1:46 PM EDT IMPRESSION: Left breast: BI-RADS 2, benign findings. Right breast: BI-RADS 2, benign findings. Summary BI-RADS: BI-RADS 2, benign findings. RECOMMENDATION: Any further workup to be governed by the clinical scenario. Annual screening mammography in the average risk patient to begin at age 40. If new or localizing symptoms/concern, repeat imaging may be obtained. NOTE: These findings and recommendations were discussed with the patient who concurs. Narrative 10/07/2015 1:46 PM EDT DIAGNOSTIC MAMMOGRAPHY OF THE BILATERAL BREASTS CLINICAL HISTORY: breast pain ??- h/o abscess and mastits.. ??Bilateral nonfocal nonspecific breast pain. Secondary to patient inability to localize pain, and absence of focal findings, no BB was placed. TECHNIQUE AND VIEWS OBTAINED: Images acquired with direct digital capture Bilateral 2-D/3-D digital mammography. ??Tomographic imaging was performed. The exam was evaluated by CAD version 8.3.17. COMPARISONS: None, baseline imaging. BREAST DENSITY: There are scattered areas of fibroglandular density FINDINGS: Left breast: Normal intramammary lymph node. No suspicious calcifications, mass, distortion. Right breast: No suspicious mass, distortion, calcifications. Normal intramammary lymph nodes, and lymph nodes of the right axilla. Melissa Lehman MD IMG MAMMO ORDERABLE S from Last 3 Months or Most Recently Relevant to Health Maintenance Advance Directives * Full Code (Latest Code Status on File) Date Activated Date Inactivated Comments 10/07/2018 7:16 AM 10/08/2018 4:48 AM Question Answer Comments Does patient have capacity to make decision: Yes Care Teams Business Integration Manager Relationship Specialty Start Date End Date Baron Hobson PA [address] [place] [address] PCP - General Family Medicine 02/01/23
--- OUTSIDE RECORDS SUMMARY | 2023-12-17 01:43 | XMS_ITS | Encounter Summary ---
[place] [address] Care Team Providers Care Integration Analyst Name Role Phone Unknown Primary Care Provider Unavailabl e Reason for Referral * Diagnostic Test (Routine) - Closed Specialty Diagnoses / Procedures Referred By Contac t Referred To Contact Radiology Diagnoses Aneurysm of ophthalmic artery Procedures MRI Angiogram Head wo Contrast (Generic) [place] [address] [place] [address] Referral ID Status Reason Start Date Expiration Date V isits Requested Visits Authorized [id number] Closed Specialty Service Requested 11/24/2021 05/26/2023 1 1 Reason for Visit * Diagnostic Test (Routine) - Closed Specialty Diagnoses / Procedures Referred By Contac t Referred To Contact Radiology Diagnoses Aneurysm of ophthalmic artery Procedures MRI Angiogram Head wo Contrast (Generic) [place] [address] [place] [address] Referral ID Status Reason Start Date Expiration Date V isits Requested Visits Authorized [id number] Closed Specialty Service Requested 11/24/2021 05/26/2023 1 1 Encounter Details Date Type Department Care Team (Latest Contact Info) Description 12/21/2022 11:10 AM EDT - 12/21/2022 11:59 PM EDT Hospital [place] [address] Dennise Jaimes APRN [facility] [place] [address] Aneurysm of ophthalmic artery Discharge Disposition: Home Social History Tobacco Use Types Packs/Day Years [...] on file documented as of this encounter Medications at Time of Discharge Medication Sig Dispensed Refills Start Date End Date albuteroL 90 mcg/actuation HFA Aerosol Inhaler INHALE 2 PUFFS EVERY 6 HOURS NEEDED FOR SHORTNESS OF BREATH OR WHEEZING 10/14/2021 b complex vitamins Capsule Take 1 capsule by mouth daily. ascorbic acid, Vitamin C, (Vitamin C) 250 mg Tablet Take 250 mg by mouth as needed. When remembered EPINEPHrine 0.3 mg/0.3 mL Auto-Injector as needed. Xopenex HFA 45 mcg/actuation HFA Aerosol Inhaler as needed. 10/08/2019 FLUoxetine (PROzac) 20 mg Capsule 1 capsule daily. 06/24/2019 08/14/2023 documented as of this encounter Plan of Treatment Upcoming Encounters Date Type Department Care Team (Late st Contact Info) Description 01/01/2024 9:10 AM EDT Office [place] [address] Clinic, Dr Alfaro Team None 01/02/2024 11:10 AM [place] [address] Dennise Jaimes NAVIGATION TEACHER [facility] [place] [address] 01/02/2024 2:00 PM EDT Office [place] [address] [place] [address] 01/10/2024 11:30 AM EDT Office [place] [phone] Alma Delia Martinez MD [facility] [place] [address] documented as of this encounter Procedures Procedure Name Priority Date/Time Associated Diagnosis Comments MRI HEAD ANGIOGRAM WO CONTRAST Routine 12/21/2022 12:08 PM EDT Aneurysm of ophthalmic artery documented in this encounter Results * MRI Angiogram Head wo Contrast (Generic) (12/21/2022 12:08 PM EDT) Anatomical Region Laterality Modality Head Magnetic Resonan ce Impressions 12/21/2022 6:39 PM EDT Stable appearance of right ophthalmic origin aneurysm. Thank you for letting us participate in the care of this patient. ??If you are a health care provider and have any questions regarding this report, please contact the number below. ??For patients who have questions please contact the health home health care coordinator that requested your imaging first. ? Electronically signed by: Nazario Cedillo MD, [facility] ([phone]), at 12/21/2022 6:39 PM Narrative 12/21/2022 6:39 PM EDT EXAMINATION: MRI ANGIOGRAM HEAD WO CONTRAST (GENERIC) CLINICAL HISTORY: Cerebral aneurysm, follow-up R ophthalmic artery aneurysm, possible LICA infundibulum/aneurysm, eval for change TECHNIQUE: MRA of the head performed without contrast. 3-D MIP reconstructions were created. Additional 3-D surface shaded volume rendered targeted reformatted images were performed by myself on the workstation. COMPARISON:. MRA of the cerebral arteries performed on 11/24/2021 and prior angiogram of 10/07/2017. I also have available a MRA study from 11/02/2020 FINDINGS:The posterior circulation shows no abnormalities. Left internal carotid artery, anterior cerebral, middle cerebral and ophthalmic arteries are normal in appearance. Anterior communicator is normal. Posterior communicating arteries are normal. The right internal carotid artery reveals a aneurysm at the origin of the ophthalmic as seen on axial image 71 series 3. There is approximately 3.5 mm in length and 2 mm across its base. It appears generally unchanged from the previous exam. The middle cerebral arteries are normal in appearance bilaterally Procedure Note Nazario Cedillo MD - 12/21/2022 EXAMINATION: MRI ANGIOGRAM HEAD WO CONTRAST (GENERIC) CLINICAL HISTORY: Cerebral aneurysm, follow-up R ophthalmic artery aneurysm, possible LICA infundibulum/aneurysm, evalfor change TECHNIQUE: MRA of the head performed without contrast. 3-D MIP reconstructions were created. Additional 3-D surface shaded volume rendered targetedreformatted images were performed by myself on the workstation. COMPARISON:. MRA of the cerebral arteries performed on 11/24/2021 andprior angiogram of 10/07/2017. I also have available a MRA study from 11/02/2020 FINDINGS:The posterior circulation shows no abnormalities. Left internal carotid artery, anterior cerebral, middle cerebral andophthalmic arteries are normal in appearance. Anterior communicator is normal.Posterior communicating arteries are normal. The right internal carotid artery reveals a aneurysm at the origin ofthe ophthalmic as seen on axial image 71 series 3. There is approximately 3.5mm in length and 2 mm across its base. It appears generally unchanged from the previous exam. The middle cerebral arteries are normal in appearance bilaterally IMPRESSION Stable appearance of right ophthalmic origin aneurysm. Thank you for letting us participate in the care of this patient. If youare a health care provider and have any questions regarding this report,please contact the number below. For patients who have questions please contactthe health home health care coordinator that requested your imaging first. Dennise Jaimes NAVIGATION TEACHER IMG MRI ORDERABLES documented in this encounter Visit Diagnoses Diagnosis Aneurysm of ophthalmic artery Cerebral aneurysm, nonruptured documented in this encounter Care Teams Integration Analyst Relationship Specialty Start Date End Date Unknown None PCP - General 02/24/22 01/31/23 documented as of this encounter
--- OUTSIDE RECORDS SUMMARY | 2023-12-17 01:43 | XMS_ITS | Encounter Summary ---
[place] [address] Care Team Providers Care Trimmer Sawyer Name Role Phone Unknown Primary Care Provider Unavailabl e Encounter Details Date Type Department Care Team (Latest Contact Info) Description 12/21/2022 Travel Social History Tobacco Use Types Packs/Day [...] 9:10 AM EDT Office Visit Orthopaedics at [place] [phone] Clinic, Dr Alfaro Team None 01/02/2024 11:10 AM EDT Appointment MRI at [place] [phone] Dennise Jaimes MANAGER SOCIAL RESPONSIBILITY [facility] [place] [address] 01/02/2024 2:00 PM EDT Office Visit Neurosurgery at [place] [phone] Dennise Jaimes MANAGER SOCIAL RESPONSIBILITY [facility] [place] [address] 01/10/2024 11:30 AM EDT Office [place] [address] Alma Delia Martinez MD [facility] [place] [address] documented as of this encounter Visit Diagnoses Not on filedocumented in this encounter Care Teams Trimmer Sawyer Relationship Specialty Start Date End Date Unknown None PCP - General 02/24/22 01/31/23 documented as of this encounter
--- OUTSIDE RECORDS SUMMARY | 2023-12-17 01:43 | XMS_ITS | Encounter Summary ---
Author Organization [facility] Address [address] [place] [address] Care Team Providers Care 2Nd Pressman Name Role Phone Unknown, Provider Primary Care Provider Encounter Details Date Type Department Care Team (Late st Contact Info) Description 03/15/2011 Results Only Imaging [facility] [phone] Boubacar Hough MD [address] [place] [address] [address] [place], [place] [id number] Social History Tobacco Use Types Packs/Day Years [...] Info) Description 02/11/2024 13:15 EDT Office Visit [facility] Psychiatry - [address] [id number] October, Shabana Vera MD MPH [address] [facility] [address] [place] [address] Laci Cheema MD [address] [place], [place] [phone] documented as of this encounter Procedures Procedure Name Priority Date/Time Associated Diagnosis Comments ALF ULTRASCREEN (INCLUDES SEQUENTIAL SCREEN) 04/04/2011 16:12 EDT documented in this encounter Results * ALF ULTRASCREEN (04/04/2011 16:12 EDT) Anatomical Region Laterality Modality Other 04/04/2011 16:1 2 EDT 04/04/2011 16:48 EDT Narrative 04/04/2011 16:48 EDT Indication: Nuchal translucency screening. History: Age: 30 years. : 2 Para: 0. Previous pregnancies: Abortions: 1. LMP not known. Current : Pre- data: Weight 205 lbs. Height 5 ft 4 ins. BMI 35.2. Dating: Earlier Assessment on: 02/23/2011 EDC: 10/15/2011 GA by earlier assessment: 12w2d Current Scan on: 04/04/2011 EDC: 10/12/2011 GA by current scan: 12w5d Best Overall Assessment: 04/04/2011 EDC: 10/15/2011 Assessed GA: 12w2d The calculation of the gestational age by current scan was based on CRL. The Best Overall Assessment is based on an earlier assessment on 02/23/2011. First Trimester Scan: Etienne gestation. Biometry: CRL 63.8 mm 76th% 12w5d (11w5d to 13w5d) NT 1.60 mm heart activity: Present. heart rate: 159 bpm. Summary of Ultrasound Findings: Transabdominal US. U/S machine: [employer] 9. U/S view: limited by adiposity. Maternal Structures: Right Ovary: Normal w/ simple cyst. Cysts Right Ovary: Cyst 1: Mean value: 36 mm. D1: 33 mm. D2: 35 mm. D3: 39 mm. Volume: 24 ml. Simple cyst. Left Ovary: not examined. Report Summary: Impression: NOTE: This study was ordered as an NT ONLY so maternal and anatomy assessments were not performed. [id number] Nuchal translucency measurement This is a etienne gestation. Nuchal translucency is 1.6 mm. Omphalocele is not present. Note that ACOG Practice Bulletin 77 points out that the inclusion of second trimester serum markers improve detection rates for Down syndrome; however if you wish to combine second trimester analytes, you must send the serum to [facility] at 15-16 weeks'. They will reanalyze the results including both first and second trimester serum as well as nuchal translucency and maternal age. If you do not wish to include second trimester serum for aneuploidy screening, you may still send serum to [facility] for MSAFP alone to screen for neural tube defects and other obstetrics outcomes associated with an elevated MSAFP. A fingerstick blood specimen was collected today for Combined First Trimester Screening. The results should be available in about a week. Recommendations: Follow-up as clinically indicated. Growth Overview: Date GA BPD [mm] HC [mm] AC [mm] FL [mm] HUM [mm] EFW GP 04/04/2011 12 + 2 ... ... ... ... ... ... ... Procedure Note 04/04/2011 Indication: Nuchal translucency screening. History: Age: 30 years. : 2 Para: 0. Previous pregnancies: Abortions: 1. LMP not known. Current : Pre- data: Weight 205 lbs. Height 5 ft 4 ins. BMI 35.2. Dating: Earlier Assessment on: 02/23/2011 EDC: 10/15/2011 GA by earlier assessment: 12w2d Current Scan on: 04/04/2011 EDC: 10/12/2011 GA by current scan: 12w5d Best Overall Assessment: 04/04/2011 EDC: 10/15/2011 Assessed GA: 12w2d The calculation of the gestational age by current scan was based on CRL. The Best Overall Assessment is based on an earlier assessment on 02/23/2011. First Trimester Scan: Etienne gestation. Biometry: CRL 63.8 mm 76th% 12w5d (11w5d to 13w5d) NT 1.60 mm heart activity: Present. heart rate: 159 bpm. Summary of Ultrasound Findings: Transabdominal US. U/S machine: [employer] 9. U/S view: limited by adiposity. Maternal Structures: Right Ovary: Normal w/ simple cyst. Cysts Right Ovary: Cyst 1: Mean value: 36 mm. D1: 33 mm. D2: 35 mm. D3: 39 mm. Volume: 24 ml. Simple cyst. Left Ovary: not examined. Report Summary: Impression: NOTE: This study was ordered as an NT ONLY so maternal and anatomy assessments were not performed. [address]15 Nuchal translucency measurement This is a etienne gestation. Nuchal translucency is 1.6 mm. Omphalocele is not present. Note that ACOG Practice Bulletin 77 points out that the inclusion of second trimester serum markers improve detection rates for Down syndrome; however if you wish to combine second trimester analytes, you must send the serum to [facility] at 15-16 weeks'. They will reanalyze the results including both first and second trimester serum as well as nuchal translucency and maternal age. If you do not wish to include second trimester serum for aneuploidy screening, you may still send serum to [facility] for MSAFP alone to screen for neural tube defects and other obstetrics outcomes associated with an elevated MSAFP. A fingerstick blood specimen was collected today for Combined First Trimester Screening. The results should be available in about a week. Recommendations: Follow-up as clinically indicated. Growth Overview: Date GA BPD [mm] HC [mm] AC [mm] FL [mm] HUM [mm] EFW GP 04/04/2011 12 + 2 ... ... ... ... ... ... ... Boubacar Hough MD IMG ALF ORDERABLE S documented in this encounter Visit Diagnoses Not on filedocumented in this encounter Care Teams 2Nd Pressman Relationship Specialty Start Date End Date Unknown, Provider, PCP - General 07/06/09 04/03/11 documented as of this encounter
--- OUTSIDE RECORDS SUMMARY | 2023-12-17 01:43 | XMS_ITS | Referral Summary ---
Author Organization [facility] Address [address] [place] [address] Care Team Providers Care Esthetician Makeup Artist Name Role Phone Baron Hobson PA-C Primary Care Provider + Encounters Date Type Department Care Team Description 11/13/2023 Lab Requisition [facility] Pathology & Laboratory Medicine - [address] [address] Outr Resulting Lab, Provider from Last 3 Months Allergies No known active allergies Medications No known medications Social History Tobacco Use Types Packs/Day Years [...] 02/11/2024 13:15 EDT Office Visit [facility] Psychiatry - [address] [phone] Shabana Cody MD MPH 111 [facility] [place], Level [address] [place] [phone] Laci Cheema MD [address] [place] [address] Procedures Procedure Name Priority Date/Time Associated Diagnosis Comments LYME AB Routine 11/12/2023 12:15 EDT HEPATITIS C AB W REFLEX TO HCV RNA BY PCR Routine 08/14/2021 9:35 EDT from Last 3 Months or Most Recently Relevant to Health Maintenance Results * LYME AB (11/12/2023 12:15 EDT) Lyme Ab Negative Negative 11/14/2023 11:54 EDT [facility] Blood VENOUS BLOOD / Unknown 11/12/2023 12:15 EDT 11/13/2023 16:54 EDT Provider Outr Resulting Lab IMMUNOLOGY A ND SEROLOGY ORDERABLES Performing Organization Address [facility]/ZIP Co de Phone Number [facility] [address] [place] [address] * HEPATITIS C AB W REFLEX TO HCV RNA BY PCR (08/14/2021 9:35 EDT) Hep C Antibody Negative Negative 08/15/2021 9:58 EDT [facility] Blood VENOUS BLOOD / Unknown 08/14/2021 9:35 EDT 08/14/2021 17:03 EDT Provider Outr Resulting Lab CHEMISTRY & BLOOD GAS ORDERABLES Performing Organization Address [facility]/ZIP Co de Phone Number [facility] [address] [place] [address] from Last 3 Months or Most Recently Relevant to Health Maintenance Care Teams Esthetician Makeup Artist Relationship Specialty Start Date End Date Baron Hobson PA-C [address] [place] [phone] PCP - General 12/13/23
--- OUTSIDE RECORDS SUMMARY | 2023-12-17 01:43 | XMS_ITS | Encounter Summary ---
Author Organization [facility] Address [address] [place] [address] Care Team Providers Care Layer Out Name Role Phone Randell Haji MD Primary Care Provider [phone] Baron Hobson PA-C Primary Care Provider + Encounter Details Date Type Department Care Team (Late st Contact Info) Description 08/14/2021 Lab Requisition [facility] Pathology & Laboratory Medicine - [address] [address] Outr Resulting Lab, Provider Social History Tobacco [...] Info) Description 02/11/2024 13:15 EDT Office Visit [facility] Psychiatry - [address] [place] [address] [place], [place] [address] Shabana Cody MD MPH 111 [facility], [place], [address] [place] [phone] Laci Cheema MD [address] [place], [place] [address] documented as of this encounter Procedures Procedure Name Priority Date/Time Associated Diagnosis Comments HIV 1/2 ANTIGEN AND ANTIBODY, 4TH GENERATION Routine 08/14/2021 9:35 EDT documented in this encounter Results * HIV 1/2 ANTIGEN AND ANTIBODY, 4TH GENERATION (08/14/2021 9:35 EDT) HIV 1 and 2 Antibody/p24 Antigen, 4th Generation Negative Negative 08/15/2021 9:26 EDT [facility] Comment:If acute HIV-1 infec tion is suspected in a high risk patient, submit plasma specimen for HIV-1 RNA quantitation test. Blood VENOUS BLOOD / Unknown 08/14/2021 9:35 EDT 08/14/2021 17:02 EDT Narrative [facility] - 08/15/2021 9:26 EDT Fourth Generation assay performed on the Lexaraaur XPT. Provider Outr Resulting Lab IMMUNOLOGY A ND SEROLOGY ORDERABLES [facility] [address] [place] [address] documented in this encounter Visit Diagnoses Not on filedocumented in this encounter Care Teams Layer Out Relationship Specialty Start Date End Date Randell Haji MD [address] [place] [address] PCP - General 04/04/11 12/12/23 Baron Hobson PA-C [address] [place] [address] PCP - General 12/13/23 documented as of this encounter
--- OUTSIDE RECORDS SUMMARY | 2023-12-17 01:43 | XMS_ITS | Encounter Summary ---
Author Organization [facility] Address [address] [place] [address] Care Team Providers Care Chenille Machine Operator Name Role Phone Randell Haji MD Primary Care Provider [phone] Encounter Details Date Type Department Care Team (Late st Contact Info) Description 04/04/2011 - 04/04/2011 23:59 EDT Hospital Encounter [address] [address] Amira Steen MD [address] [place] [address] 4 [place] [phone] Social History Tobacco Use Types Packs/Day Years Used Date Smoking Tobacco: Never Assessed Sex and Gender Information Value Date Recorded Sex Assigned at Not on file Gender Identity Choose not to disclose 13:02 EDT Sexual Orientation Not on file documented as of this encounter Miscellaneous Notes * Scanned Note-Null - Deli Clerk, Scan - 04/05/2011 1100 EDT documented in this encounter Plan of Treatment Upcoming Encounters Date Type Department Care Team (Late st Contact Info) Description 02/11/2024 13:15 EDT Office Visit [facility] Psychiatry - [address] [address] Shabana Cody MD MPH 111 [facility] 4 [place] [phone] Laci Cheema MD [address] [place] [phone] documented as of this encounter Visit Diagnoses Not on filedocumented in this encounter Care Teams Chenille Machine Operator Relationship Specialty Start Date End Date Randell Haji MD [address] [place], [place] [address] PCP - General 04/04/11 12/12/23 documented as of this encounter
--- OUTSIDE RECORDS SUMMARY | 2023-12-17 01:43 | XMS_ITS | Encounter Summary ---
Author Organization [facility] Address [address] [place] [address] Care Team Providers Care Gynecologist Name Role Phone Unknown, Provider Primary Care Provider Encounter Details Date Type Department Care Team (Late st Contact Info) Description 03/15/2011 Results Only [facility] Laboratory Services - [facility] ([facility]) [address] [place], [place] [address] Rachelle Hough MD [address] [place] [address] 2 [place], [place] [id number] Social History Tobacco Use Types Packs/Day Years [...] Info) Description 02/11/2024 13:15 EDT Office Visit [facility] Psychiatry - [address] [address] May, Shabana Vera MD MPH 111 [facility], [address] [place] [phone] Laci Cheema MD [address] [place], [place] [address] documented as of this encounter Procedures Procedure Name Priority Date/Time Associated Diagnosis Comments PAP TEST- RESULT ONLY Routine 03/15/2011 0:00 EDT documented in this encounter Results * PAP TEST- RESULT ONLY (03/15/2011 0:00 EDT) Pathology Report: CYTOPATHOLOGY REPORT Reports generated via electronic interface contain original data; however they are lacking the format of the original report. Caution should be taken when reading/interpreti ng unformatted reports. Name: ? YOUNG, YUNG ? Accession #: ? [id number] : ? 1980 (Age: 30) ??F ?Collect Date: ? 03/15/2011 Location: ? [facility] ? Receive Date: ? 03/16/2011 Provider: ?RACHELLE HOUGH MD Copy to: ? Specimen/Source: ?Pap Test, Cervix/Endocervix, ThinPrep Imaging System with manual evaluation Last Menstrual Period: ? 12/2010 Menstrual/Pregnanc y Status: ? Other: ? Additional clinical information: pap WNL 12/04 ? SPECIMEN ADEQUACY ? Satisfactory for Evaluation - transformation zone component present GENERAL CATEGORIZATION ? Negative for Intraepithelial Lesion or Malignancy ? Document reviewed and electronically signed by: ? WILL Mcguire(ASCP) ? Report Date: ??03/23/2011 09:18 End of Report DESIREE MONTIEL 03/15/2011 03/16/2011 Rachelle Hough MD PATHOLOGY ORDERABLES DESIREE MONTIEL [address] [place] [address] documented in this encounter Visit Diagnoses Not on filedocumented in this encounter Care Teams Gynecologist Relationship Specialty Start Date End Date Unknown, Provider, PCP - General 07/06/09 04/03/11 documented as of this encounter
--- OUTSIDE RECORDS SUMMARY | 2023-12-17 01:43 | XMS_ITS | Encounter Summary ---
[place] [address] Care Team Providers Care Carriage Setter Name Role Phone Unknown Primary Care Provider Unavailabl e Encounter Details Date Type Department Care Team (Latest Contact Info) Description 01/04/2023 Travel Social History Tobacco Use Types Packs/Day [...] 9:10 AM EDT Office Visit Orthopaedics at [place] [phone] Clinic, Dr Alfaro Team None 01/02/2024 11:10 AM EDT Appointment MRI at [place] [phone] Dennise Jaimes CERTIFIED [facility] [place] [address] 01/02/2024 2:00 PM EDT Office Visit Neurosurgery at [place] [phone] Dennise Jaimes CERTIFIED [facility] [place] [address] 01/10/2024 11:30 AM EDT Office [place] [address] Alma Delia Martinez MD [facility] [place] [address] documented as of this encounter Visit Diagnoses Not on filedocumented in this encounter Care Teams Carriage Setter Relationship Specialty Start Date End Date Unknown None PCP - General 02/24/22 01/31/23 documented as of this encounter
--- OUTSIDE RECORDS SUMMARY | 2023-12-17 01:43 | XMS_ITS | Encounter Summary ---
Author Organization [facility] Address [address] [place] [address] Care Team Providers Care Leather Leveler Name Role Phone Randell Haji MD Primary Care Provider [phone] Encounter Details Date Type Department Care Team (Late st Contact Info) Description 06/16/2014 Results Only [facility] Laboratory Services - [facility] ([facility]) [address] [place], [place] [address] Rachelle Hough MD [address] [place] [address] 2 [place], [place] [phone] Social History Tobacco Use Types Packs/Day Years [...] 02/11/2024 13:15 EDT Office Visit [facility] Psychiatry - [address] [address] Shabana Cody MD MPH 111 [facility] [place], [address] [place] [phone] Laci Cheema MD [address] [place], [place] [address] documented as of this encounter Procedures Procedure Name Priority Date/Time Associated Diagnosis Comments SURGICAL PATHOLOGY Routine 06/16/2014 8:15 EST documented in this encounter Results * SURGICAL PATHOLOGY (06/16/2014 8:15 EST) Pathology Report: SURGICAL PATHOLOGY REPORT Reports generated via electronic interface contain original data; however they are lacking the format of the original report. Caution should be taken when reading/interpret ing unformatted reports. Name: ? YOUNG, YUNG ? Accession #: ? [id number] ? : ? 1980 (Age: 33) ??F ? Collect Date: ? 06/16/2014 ? Location: ? [facility] ? Receive Date: ? 06/17/2014 ? Provider: RACHELLE HOUGH MD Copy to: ? Final Pathologic Diagnosis: A. FALLOPIAN TUBE, LEFT, SALPINGECTOMY: - ??Fallopian tube with no significant pathologic features. See comment. B. FALLOPIAN TUBE, RIGHT, SALPINGECTOMY: - ??Fallopian tube with no significant pathologic features. See comment. Comment: The fallopian tube tissue has been submitted entirely for microscopic evaluation. Document reviewed and electronically signed by: GENET DE LA O MD Report ??Date: 06/22/2014 17:22 By the signature above, the attending physician certifies that he/she has personally conducted a gross and/or microscopic examination of the described specimens and rendered or confirmed the above diagnosis. Specimen(s) Received: A. ??L fallopian tube B. ??R fallopian tube Clinical History: Desires sterilization; risk reduction for ovarian CA Gross Description: A. ?Received in formalin labelled with proper patient identification (initials Y, A) and left fallopian tube is a fimbriated fallopian tube (8.0 cm in length x 0.5 cm in diameter), without associated ovary. ??The serosa is randall-purple and smooth. ??Sectioning reveals a randall-white cut surface with a pinpoint lumen throughout. ??Entirely submitted in A1-A5. B. ?Received in formalin labelled with proper patient identification (initials Y, A) and right fallopian tube is a fimbriated fallopian tube (7.0 cm in length x 0.5 cm in diameter), without associated ovary. ??The serosa is randall-purple and smooth. ??Sectioning reveals a randall-white cut surface with a pinpoint lumen throughout. ??Entirely submitted in B1-B5. Veda Mary 06/17/2014 09:59 AM End of Report [facility] 06/16/2014 8:15 EST 06/17/2014 8:15 EST Rachelle Hough MD PATHOLOGY ORDERABLES Performing Organization Address City/State/[facility] Co de Phone Number [facility] [address] [place] [address] documented in this encounter Visit Diagnoses Not on filedocumented in this encounter Care Teams Leather Leveler Relationship Specialty Start Date End Date Randell Haji MD [address] [place] [address] PCP - General 04/04/11 12/12/23 documented as of this encounter
--- OUTSIDE RECORDS SUMMARY | 2023-12-17 01:43 | XMS_ITS | Encounter Summary ---
Author Organization [facility] Address [address] [place] [address] Care Team Providers Care Puppy Trainer Name Role Phone Randell Haji MD Primary Care Provider [phone] Encounter Details Date Type Department Care Team (Late st Contact Info) Description 06/10/2014 Results Only [facility] Laboratory Services - [facility] ([facility]) [address] [place], [place] [address] Rachelle Hough MD [address] [place] [address] 2 [place], [place] [phone] Social History Tobacco Use Types Packs/Day Years [...] Info) Description 02/11/2024 13:15 EDT Office Visit [facility] Psychiatry - [address] [address] Shabana Cody MD MPH 111 [facility], [address] [place] [phone] Laci Cheema MD [address] [place], [place] [address] documented as of this encounter Procedures Procedure Name Priority Date/Time Associated Diagnosis Comments PAP TEST- RESULT ONLY Routine 06/10/2014 0:00 EST documented in this encounter Results * PAP TEST- RESULT ONLY (06/10/2014 0:00 EST) Pathology Report: CYTOPATHOLOGY REPORT Reports generated via electronic interface contain original data; however they are lacking the format of the original report. Caution should be taken when reading/interpreti ng unformatted reports. Name: ? YOUNG, YUNG ? Accession #: ? [id number] ? : ? 1980 (Age: 33) ??F ?Collect Date: ? 06/10/2014 ? Location: ? [facility] ? Receive Date: ? 06/14/2014 ? Provider: RACHELLE HOUGH MD Copy to: ? Final Report SPECIMEN ADEQUACY ? Satisfactory for Evaluation - transformation zone component present GENERAL CATEGORIZATION ? Negative for Intraepithelial Lesion or Malignancy ?? Last Menstrual Period: 04/24/14 Delivery Menstrual/Pregnanc y Status: ??Post Other: Additional clinical information: Previous Paps WNL: 12/04, 03/13 Specimen/Source: ??Pap Test, Cervix/Endocervix, ThinPrep Imaging System with manual evaluation Document reviewed and electronically signed by: ? WILL Miranda(ASCP) ? Report ??Date: 06/17/2014 10:14 HPV with Pap Test ? Date Ordered: ? 06/17/2014 ? Status: ?? Signed Out ?Date Complete: ? 06/21/2014 ? By: ??System Interface ? Date Reported: ? 06/21/2014 ? Interpretation RESULT: Negative for HPV. No E6 or E7 mRNA is detected from HPV types 16,18,31,33,35, 39,45,51,52,56,58, 59,66, and 68 by toll settlement clerk mediated amplification. Comments Document reviewed and electronically signed by: ? System Interface ? Report date: 06/21/2014 By the signature above, the attending physician certifies that he/she has personally conducted a gross and/or microscopic examination of the described specimens and rendered or confirmed the above diagnosis. End of Report [facility] 06/10/2014 06/14/2014 Rachelle Hough MD PATHOLOGY ORDERABLES Performing Organization Address City/State/[facility] Co de Phone Number [facility] [address] [place] [address] documented in this encounter Visit Diagnoses Not on filedocumented in this encounter Care Teams Puppy Trainer Relationship Specialty Start Date End Date Randell Haji MD [address] [place] [address] PCP - General 04/04/11 12/12/23 documented as of this encounter
--- OUTSIDE RECORDS SUMMARY | 2023-12-17 01:43 | XMS_ITS | Encounter Summary ---
Author Organization [facility] Address [address] [place] [address] Care Team Providers Care Event Crew Technician Name Role Phone Unknown, Provider Primary Care Provider Encounter Details Date Type Department Care Team (Late st Contact Info) Description 12/24/2003 Results Only [facility] - Maple conversion [address] [place] [address] Saurav Barker, BUSHING PRESS OPERATOR Social History Tobacco Use Types Packs/Day Years [...] Info) Description 02/11/2024 13:15 EDT Office Visit [facility] Psychiatry - [address] [address] October, Shabana Vera MD MPH 111 [facility] Level [address] [place] [phone] Laci Cheema MD [address] [place], [place] [address] documented as of this encounter Procedures Procedure Name Priority Date/Time Associated Diagnosis Comments CYTOPATHOLOGY Routine 12/24/2003 0:00 EDT documented in this encounter Results * CYTOPATHOLOGY (12/24/2003 0:00 EDT) Pathology Report: CYTOPATHOLOGY REPORT Reports generated via electronic interface contain original data; however they are lacking the format of the original report. Caution should be taken when reading/interpreti ng unformatted reports. Name: ? YUNG MCNALLY ? Accession #: ? [id number] : ? 1980 (Age: 23) ??F ?Collect Date: ? 12/24/2003 Location: ? [facility] ? Receive Date: ? 12/27/2003 Provider: ?SAURAV BARKER APRN Copy to: ? Specimen/Source: ?ThinPrep Pap Test, Cervix/Endocervix Last Menstrual Period: ? 04/27/03 Hormonal/Contracep tive Status: ? Yes Other: ? HPVA - HPV testing requested if ASC-US on the current ThinPrep Pap test. ? SPECIMEN ADEQUACY ? Satisfactory for Evaluation - transformation zone component present GENERAL CATEGORIZATION ? Negative for Intraepithelial Lesion or Malignancy INTERPRETATION ? Shift in delisa present suggestive of bacterial vaginosis. ? Document reviewed and electronically signed by: ? WILL Simpson(ASCP) ? Report Date: ??12/29/2003 07:30 End of Report DESIREE MONTIEL 12/24/2003 12/27/2003 Saurav Barker APRN PATHOLOGY ORDER ANA DESIREE MONTIEL [address] [place] [address] documented in this encounter Visit Diagnoses Not on filedocumented in this encounter Care Teams Event Crew Technician Relationship Specialty Start Date End Date Unknown, Provider, PCP - General 07/06/09 04/03/11 documented as of this encounter
--- OUTSIDE RECORDS SUMMARY | 2023-12-17 01:44 | XMS_ITS | Encounter Summary ---
Author Organization [facility] [place] [address] Care Team Providers Care Public Utilities Sales Representative Name Role Phone Terri Thrasher NAMRATA Primary Care Provider + Encounter Details Date Type Department Care Team (Late st Contact Info) Description 09/24/2018 12:10 AM EDT Ancillary Procedure [place] [address] Huang Nicole MD [facility] [place] [address] Social History Tobacco Use Types Packs/Day Years Used Date Smoking Tobacco: Every Day Cigarettes 0.8 22 Smokeless Tobacco: Never Comments:smokes 8-10 cig per [...] 9:10 AM EDT Office [place] [address] Clinic, Dr Alfaro Team None 01/02/2024 11:10 [place] [address] [place] [address] 01/02/2024 2:00 PM EDT [place] [address] Dennise Jaimes APRN [facility] [place] [address] 01/10/2024 11:30 AM EDT Office [place] [phone] [facility] [place] [address] documented as of this encounter Procedures Procedure Name Priority Date/Time Associated Diagnosis Comments FILM LIBRARY STORAGE ONLY ULTRASOUND STUDY Routine 09/24/2018 12:10 AM EDT documented in this encounter Results * Film Library- Storage Only Ultrasound Study (09/24/2018 12:10 AM EDT) Narrative [facility] - 11/07/2018 10:31 AM EDT This exam is auto-finalizing. It's purpose is for storage only. Huang Nicole MD IMG FILM LIBRARY ORD ERABLES [place], [place] documented in this encounter Visit Diagnoses Not on filedocumented in this encounter Care Teams Public Utilities Sales Representative Relationship Specialty Start Date End Date Terri Thrasher APRN PCP - General Family Medicine 08/01/18 02/14/21 documented as of this encounter
--- OUTSIDE RECORDS SUMMARY | 2023-12-17 01:44 | XMS_ITS | Encounter Summary ---
Author Organization [facility] [place] [address] Care Team Providers Care Envelope Machine Adjuster Name Role Phone Unknown Primary Care Provider Unavailabl e Encounter Details Date Type Department Care Team (Late st Contact Info) Description 06/29/2022 Ancillary Procedure [place] [address] Baron Hobson PA [address] [place], [place] [address] Social History Tobacco Use Types Packs/Day Years [...] 9:10 AM EDT Office [place] [address] [address] Angelina Travis Team None 01/02/2024 11:10 [place] [address] Dennise Jaimes APRN [facility] [place] [address] 01/02/2024 2:00 PM EDT [place] [address] Dennise Jaimes APRN [facility] [place] [address] 01/10/2024 11:30 AM EDT Office [place] [phone] Alma Delia Martinez MD [facility] [place] [address] documented as of this encounter Procedures Procedure Name Priority Date/Time Associated Diagnosis Comments FILM LIBRARY STORAGE ONLY DX KNEE Routine 06/29/2022 12:00 AM EST documented in this encounter Results * Film Library- Storage Only DX Knee (06/29/2022 12:00 AM EST) Narrative [facility] - 02/11/2023 5:05 AM EDT This exam is auto-finalizing. It's purpose is for storage only. Baron STANFORD IMManish FILM LIBRARY O RDERABLES [place], [place] documented in this encounter Visit Diagnoses Not on filedocumented in this encounter Care Teams Envelope Machine Adjuster Relationship Specialty Start Date End Date Unknown None PCP - General 02/24/22 01/31/23 documented as of this encounter
--- OUTSIDE RECORDS SUMMARY | 2023-12-17 01:44 | XMS_ITS | Encounter Summary ---
Author Organization [facility] [place] [address] Care Team Providers Care Ur Coordinator Name Role Phone Terri Thrasher NAMRATA Primary Care Provider + Encounter Details Date Type Department Care Team (Late st Contact Info) Description 01/22/2021 6:45 PM EDT Ancillary Procedure [place] [address] Timmy Altman MD [facility] [address] [place] [address] Social History Tobacco Use Types Packs/Day Years [...] 9:10 AM EDT Office [place] [address] [address] Angelina Travis Team None 01/02/2024 11:10 AM EDT [place] [address] [place] [address] 01/02/2024 2:00 PM EDT Office [place] [address] Dennise Jaimes APRN [facility] [address] 01/10/2024 11:30 AM EDT Office [place] [address] Alma Delia Martinez MD [facility] [place] [address] documented as of this encounter Procedures Procedure Name Priority Date/Time Associated Diagnosis Comments FILM LIBRARY STORAGE ONLY CT HEAD AND SPINE Routine 01/22/2021 6:43 PM EDT documented in this encounter Results * Film Library- Storage Only CT Head And Spine (01/22/2021 6:43 PM EDT) Narrative [facility] - 01/22/2021 6:43 PM EDT This exam is auto-finalizing. It's purpose is for storage only. Timmy Altman MD IMG FILM LIBRARY ORD ERABLES [place], [place] documented in this encounter Visit Diagnoses Not on filedocumented in this encounter Care Teams Ur Coordinator Relationship Specialty Start Date End Date Terri Thrasher APRN PCP - General Family Medicine 08/01/18 02/14/21 documented as of this encounter
--- OUTSIDE RECORDS SUMMARY | 2023-12-17 01:44 | XMS_ITS | Encounter Summary ---
Author Organization [facility] [place] [address] Care Team Providers Care It Service Manager Name Role Phone Terri Thrasher NAMRATA Primary Care Provider + Reason for Visit * Reason Comments Nicotine Dependence Encounter Details Date Type Department Care Team (Late st Contact Info) Description 10/10/2018 Telephone Thoracic Surgery [facility] [place] [address] Dot Garcia APRN [facility] [place] [address] Nicotine Dependence Social History Tobacco Use Types Packs/Day Years [...] encounter Miscellaneous Notes * Telephone Encounter - Dot Garcia APRN - 10/10/2018 2:53 PM EDT Call to discuss smoking cessation. Holly reports that she tried the patch for about a week and found that it wasn't helpful. She continues to smoke approximately 8-10 cigarettes per day. She also states that she tried the inhaler a couple of times but noted a funny taste in her mouth. She did not use the patch and inhaler at the same time and I encouraged her to try using both together. She voiced understanding and agreed to try. I also encouraged her to use the inhaler a few more times to see if the taste changed as an initial side effect of the inhaler can be a burning sensation which decreases after several uses. We also discussed keeping busy around the house with cleaning, drinking water and using the pop-topwater bottles, focusing on the positive aspects of quitting smoking, and rewarding herself for evenlittle victories. She still has the goal of quitting by her grandmother's birthday, October 29 and I encouraged her that this goal is still possible. She has a follow up appointment scheduled with Lenore Thompson on 10/28/18 and I encouraged her to call in the interim with any questions or concerns. Dot Garcia APRN 10/10/2018 documented in this encounter Plan of Treatment Upcoming Encounters Date Type Department Care Team (Late st Contact Info) Description 01/01/2024 9:10 AM EDT Office Visit Orthopaedics at [address] Clinic, Dr Alfaro Team None 01/02/2024 11:10 AM EDT Appointment MRI at [place] [address] Dnenise Jaimes [employer] [address] 01/02/2024 2:00 PM EDT Office Visit Neurosurgery at [place] [address] [place] [address] 01/10/2024 11:30 AM EDT Office Visit Endocrinology at [place] [phone] Alma Delia Martinez MD [facility] [place] [address] documented as of this encounter Visit Diagnoses Not on filedocumented in this encounter Care Teams It Service Manager Relationship Specialty Start Date End Date Terri Thrasher APRN PCP - General Family Medicine 08/01/18 02/14/21 documented as of this encounter
--- OUTSIDE RECORDS SUMMARY | 2023-12-17 01:44 | XMS_ITS | Encounter Summary ---
[place] [address] Care Team Providers Care Psychologist Personnel Name Role Phone Terir Thrasher APRN Primary Care Provider + Reason for Referral * Diagnostic Test (Routine) - Closed Specialty Diagnoses / Procedures Referred By Contjose t Referred To Contact Radiology Diagnoses Cerebral aneurysm without rupture Procedures MRI Angiogram Head wo Contrast (Generic) Eugenio Hernandez MD [facility] [place] [address] [place] [address] Referral ID Status Reason Start Date Expiration Date V isits Requested Visits Authorized [id number] Closed Specialty Service Requested 11/12/2019 05/13/2021 1 1 Reason for Visit * Reason Comments Follow-up Encounter Details Date Type Department Care Team (Late st Contact Info) Description 11/11/2019 3:30 PM EDT Office [place] [address] Eugenio Hernandez MD [facility] [place] [address] Cerebral aneurysm without rupture Social History Tobacco Use Types Packs/Day Years [...] Sign Reading Time Taken Comments Blood Pressure 102/58 11/11/2019 3:14 PM EDT Pulse 85 11/11/2019 3:14 PM EDT Temperature - - Respiratory Rate - - Oxygen Saturation - - Inhaled Oxygen Concentration - - Weight - - Height - - Body Mass Index - - documented in this encounter Progress Notes * Eugenio Hernandez MD - 11/11/2019 3:30 PM EDT Interventional Neuroradiology Clinic Office Note Note Author: Eugenio Hernandez MD Chief Complaint: Cerebral aneurysm History of present illness: Holly Mcnally is a 39 y.o. woman with an unruptured intracranial aneurysm. The aneurysm was discovered in 2018. It was studied with cerebral angiography at that time. Shehas been doing well with no interval subarachnoid hemorrhage or new neurological symptoms. Current Outpatient Medications on File Prior to Visit Medication Sig Dispense Refill ??? busPIRone (Buspar) 5 mg Tablet 1 tablet daily. ??? FLUoxetine (PROzac) 20 mg Capsule 1 capsule daily. ??? Xopenex HFA 45 mcg/actuation HFA Aerosol Inhaler as needed. ??? cyclobenzaprine (FLEXERIL) 5 mg Tablet Take 1 tablet by mouth nightly. 30 tablet 0 ??? gabapentin (NEURONTIN) 100 mg Capsule 100 mg AM 200 mg HS (Patient not taking: Reported on 11/11/2019) 90 capsule 12 ??? nicotine (NICODERM CQ) 21 mg/24 [address] 1 patch onto the skin daily. See package instructions (Patient not taking: Reported on 11/11/2019) 28 patch 0 ??? nicotine (NICOTROL) 10 mg Cartridge Inhale 1 puff into the lungs as needed for Smoking cessation (No more than 16 cartridges per day). (Patient not taking: Reported on 10/28/2018) 1 each 2 No current facility-administered medications on file prior to visit. Allergies Allergen Reactions ??? Amoxicillin Nausea And Vomiting Passed out ??? Asa Buff (Mag Carb-Al Glyc) [Aspirin, Buffered] Anxiety ??? Codeine Nausea Only ??? Nsaids (Non-Steroidal Anti-Inflammatory Drug) Palpitations Most Recent Vitals: 11/11/19 1514 BP: 102/58 Pulse: 85 Imaging studies: MR angiography shows that the right ophthalmic aneurysm is unchanged in size and configuration, measuring 3.4 mm The radiologist's report from today describes a left ophthalmic aneurysm. When I review the study Ithink this is most likely the ophthalmic artery itself or an infundibulum. 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 Plan: Next follow-up MRA in 1 year. Of this 10 minute visit, 10 minutes was spent in counseling and coordination of care. documented in this encounter Plan of Treatment Upcoming Encounters Date Type Department Care Team (Late st Contact Info) Description 01/01/2024 9:10 AM EDT Office Visit [place] [phone] Clinic, Dr Alfaro Team None 01/02/2024 11:10 AM EDT Appointment MRI at [place] [phone] Dennise Ja[place] [address] 01/02/2024 2:00 PM EDT Office [place] [phone] [place] [address] 01/10/2024 11:30 AM EDT Office Visit Endocrinology at [place] [phone] Alma Delia Martinez MD [facility] [place] [address] documented as of this encounter Results * MRI Angiogram Head wo Contrast (Generic) (11/02/2020 3:33 PM EDT) Anatomical Region Laterality Modality Head Magnetic Resonan ce Impressions 11/02/2020 3:49 PM EDT Stable right ophthalmic artery aneurysm Thank you for letting us participate in the care of this patient. ??If you are a health care provider and have any questions regarding this report, please contact the number below. ??For patients who have questions please contact the health career and transition teacher that requested your imaging first. ? Electronically signed by: Nazario Cedillo MD, [facility] ([phone]), at 11/02/2020 3:49 PM Narrative 11/02/2020 3:49 PM EDT EXAMINATION: MRI ANGIOGRAM HEAD WO CONTRAST (GENERIC) CLINICAL HISTORY: Cerebral aneurysm, follow-up right ophthalmic aneurysm surveillance. Incl. noncon SPACE TECHNIQUE: MRA of the head performed without contrast. 3-D MIP reconstructions were created. Evaluation of mid and axial data images. COMPARISON: Previous MRA 11/11/2019, previous angiogram performed on 11/11/2019 FINDINGS: Some motion artifact limiting the study however the modoc of Garcia is fairly well visualized. The small ophthalmic artery aneurysm on the left appears generally unchanged in size or contour, it measures approximate 3.5 mm in length by 2.5 mm in transverse diameter. The ophthalmic artery arises from the tip of the aneurysm. Considering technical factors this is entirely unchanged since previous exam. Mild prominence is noted at the origin of left ophthalmic artery likely an infundibulum. Evaluation of the middle cerebral arteries and branches is normal. Anterior cerebral arteries and anterior communicating arteries are normal in appearance. There are no posterior communicating aneurysms. Evaluation of the vertebral basilar system reveals no aneurysm. No major occlusion is seen there is no vascular malformation Procedure Note Nazario Cedillo MD - 11/02/2020 EXAMINATION: MRI ANGIOGRAM HEAD WO CONTRAST (GENERIC) CLINICAL HISTORY: Cerebral aneurysm, follow-up right ophthalmic aneurysm surveillance. Incl. noncon SPACE TECHNIQUE: MRA of the head performed without contrast. 3-D MIP reconstructions were created. Evaluation of mid and axial data images. COMPARISON: Previous MRA 11/11/2019, previous angiogram performed on 11/11/2019 FINDINGS: Some motion artifact limiting the study however the modoc of Garcia isfairly well visualized. The small ophthalmic artery aneurysm on the leftappears generally unchanged in size or contour, it measures approximate 3.5 mm inlength by 2.5 mm in transverse diameter. The ophthalmic artery arises from thetip of the aneurysm. Considering technical factors this is entirely unchanged since previousexam. Mild prominence is noted at the origin of left ophthalmic artery likelyan infundibulum. Evaluation of the middle cerebral arteries and branches is normal.Anterior cerebral arteries and anterior communicating arteries are normal inappearance. There are no posterior communicating aneurysms. Evaluation of the vertebral basilar system reveals no aneurysm. No major occlusion is seen there is no vascular malformation IMPRESSION Stable right ophthalmic artery aneurysm Thank you for letting us participate in the care of this patient. If youare a health care provider and have any questions regarding this report,please contact the number below. For patients who have questions please contactthe health career and transition teacher that requested your imaging first. Electronically signed by: Nazario Cedillo MD, [facility]([phone]), at 11/02/2020 3:49 PM Eugenio Hernandez MD IMG MRI ORDERABLES documented in this encounter Visit Diagnoses Diagnosis Cerebral aneurysm without rupture Cerebral aneurysm, nonruptured Cerebral aneurysm without rupture Cerebral aneurysm, nonruptured documented in this encounter Care Teams Psychologist Personnel Relationship Specialty Start Date End Date Terri Thrasher APRN PCP - General Family Medicine 08/01/18 02/14/21 documented as of this encounter
--- OUTSIDE RECORDS SUMMARY | 2023-12-17 01:44 | XMS_ITS | Encounter Summary ---
[place] [address] Care Team Providers Care Pecan Cleaner Name Role Phone Claudia Belle APRN Primary Care Provider Reason for Referral * Consultation (Routine) - Denied Specialty Diagnoses / Procedures Referred By Jesika t Referred To Contact Rheumatology Diagnoses Pain in joint, multiple sites Abnormal reflex Claudia Belle APRN [address] [place] [address] [facility] [address] [place] [phone] Referral ID Status Reason Start Date Expiration Date V isits Requested Visits Authorized [id number] Denied Consult, Test & Treat 11/13/2021 11/13/2022 6 0 Encounter Details Date Type Department Care Team (Late st Contact Info) Description 11/13/2021 Transcribe Orders eDH Incoming Referrals [phone] Claudia Belle APRN [address] [place], [place] [id number] Pain in joint, multiple sites; Abnormal reflex Social History Tobacco Use Types Packs/Day Years [...] 9:10 AM EDT Office Visit Orthopaedics at [place] [phone] Clinic, Dr Alfaro Team None 01/02/2024 11:10 AM EDT Appointment MRI at [address] Dennise Jaimes, FLIGHT ENGINEER PERFORMANCE QUALIFIED [facility] [place] [address] 01/02/2024 2:00 PM EDT Office Visit Neurosurgery at [place] [phone] Dennise Jaimes, FLIGHT ENGINEER [employer] [address] 01/10/2024 11:30 AM EDT Office Visit Endocrinology at [place] [address] Alma Delia Martinez MD [facility] [place] [address] Scheduled Referrals Name Type Priority Associated Diagnoses Order Schedule Referral to Rheumatology Outpatient Referral Routine Pain in joint, multiple sites Abnormal reflex Ordered: 11/13/2021 documented as of this encounter Visit Diagnoses Diagnosis Pain in joint, multiple sites Abnormal reflex documented in this encounter Care Teams Pecan Cleaner Relationship Specialty Start Date End Date Claudia Belle APRN [address] [place] [address] PCP - General Family Medicine 11/11/21 02/23/22 documented as of this encounter
--- OUTSIDE RECORDS SUMMARY | 2023-12-17 01:44 | XMS_ITS | Encounter Summary ---
[place] [address] Care Team Providers Care Clinical Rn Liaison Name Role Phone Barbra Claudia Gabriel APRN Primary Care Provider [phone] Reason for Referral * Diagnostic Test (Routine) - Closed Specialty Diagnoses / Procedures Referred By Jesika maddox Referred To Contact Radiology Diagnoses Cerebral aneurysm Procedures MRI Angiogram Head wo Contrast (Generic) [place] [address] [place] [address] Referral ID Status Reason Start Date Expiration Date V isits Requested Visits Authorized [id number] Closed Specialty Service Requested 10/11/2021 04/12/2023 1 1 Reason for Visit * Diagnostic Test (Routine) - Closed Specialty Diagnoses / Procedures Referred By Contac t Referred To Contact Radiology Diagnoses Cerebral aneurysm Procedures MRI Angiogram Head wo Contrast (Generic) [place] [address] [place] [address] Referral ID Status Reason Start Date Expiration Date V isits Requested Visits Authorized [id number] Closed Specialty Service Requested 10/11/2021 04/12/2023 1 1 Encounter Details Date Type Department Care Team (Latest Contact Info) Description 11/24/2021 9:07 AM EDT - 11/24/2021 9:10 AM EDT [place] [address] Dennise Jaimes APRN [facility] [place] [address] Cerebral aneurysm Discharge Disposition: Home Social History Tobacco Use [...] FOR SHORTNESS OF BREATH OR WHEEZING 10/14/2021 ascorbic acid, Vitamin C, (Vitamin C) 250 mg Tablet Take 250 mg by mouth as needed. When remembered Xopenex HFA 45 mcg/actuation HFA Aerosol Inhaler as needed. 10/08/2019 LORazepam (Ativan) 0.5 mg Tablet TAKEONE TABLET BY MOUTH NEEDED 10/16/2021 12/21/2022 FLUoxetine (PROzac) 20 mg Capsule 1 capsule daily. 06/24/2019 08/14/2023 documented as of this encounter Progress Notes * Hans Ochoa LPN - 11/24/2021 9:20 AM EDT MRI PRE-SEDATION ASSESSMENT NOTE NAME: Holly Contreras Young AGE: 41 y.o. : 1980 [address] [facility] [address] Female [phone] (home) Telephone Information: Claudia Belle APRN No primary care provider on file. Allergies Allergen Reactions ??? Amoxicillin Nausea And Vomiting Passed out ??? Asa Buff (Mag Carb-Al Glyc) [Aspirin, Buffered] Anxiety ??? Codeine Nausea Only ??? Nsaids (Non-Steroidal Anti-Inflammatory Drug) Palpitations Date/Time of call: November 20, 2021/11:50 AM/ PREVIOUS MRI SCAN? Yes, w/o sedation HEIGHT: WEIGHT: SCHEDULED SCAN: MRI HEAD ANGIOGRAM WO CONTRAST [[id number]] Order Questions Answers Where will study be performed? [facility] Radiology [120] Is the patient ? Unknown SUBJECTIVE: Clautrophobia CAN YOU LAY FLAT? Yes AIRWAY/BREATHING ISSUES? No DO YOU HAVE ANY INVOLUNTARY MOVEMENTS? No DO YOU HAVE ANY PAIN? No DO YOU TAKE PAIN MED ON A DAILY BASIS? No ASSESSMENT: OK for PO sedation PLAN: Valium 5-10 mg PO ordered (CHRISTINA ) You must have a class a regional truck driver present when you check in. This patient has been informed that they require a class a regional truck driver to drive them home after this procedure. In the absence of a class a regional truck driver, IR will not be able to sedate for your scan. Pt verbalized understanding of these instructions during the pre-procedure education via phone. Yes Name of class a regional truck driver: Phone number: PRIOR SCAN DATE/S SEDATION TYPE SUCCESSFUL 10/07/18 Diagnostic Cerebral Arteriogram Interventional Radiology ?? [facility] [place] Unknown ?? 11/11/19 MRI Head wo ? 11/24/21 MRI head wo?Valium 5mg PO x 2 ? Revised 10/29/17 documented in this encounter Plan of Treatment Upcoming Encounters Date Type Department Care Team (Late st Contact Info) Description 01/01/2024 9:10 AM EDT Office [place] [address] [address] Angelina Travis Team None 01/02/2024 11:10 AM [place] [address] Dennise Jaimes APRN [facility] [place] [address] 01/02/2024 2:00 PM EDT [place] [phone] Dennise Jaimes APRN [facility] [place] [address] 01/10/2024 11:30 AM EDT Office [place] [address] Alma Delia Martinez MD [facility] [place] [address] documented as of this encounter Procedures Procedure Name Priority Date/Time Associated Diagnosis Comments MRI HEAD ANGIOGRAM WO CONTRAST Routine 11/24/2021 11:20 AM EDT Cerebral aneurysm documented in this encounter Results * MRI Angiogram Head wo Contrast (Generic) (11/24/2021 11:20 AM EDT) Anatomical Region Laterality Modality Head Magnetic Resonan ce Impressions 11/24/2021 2:42 PM EDT Stable right ophthalmic aneurysm. Stable tiny left ophthalmic aneurysm versus infundibulum. Continued follow-up is advised Thank you for letting us participate in the care of this patient. ??If you are a health care provider and have any questions regarding this report, please contact the number below. ??For patients who have questions please contact the health nursing care attendant that requested your imaging first. ? Narrative 11/24/2021 2:42 PM EDT EXAMINATION: MRI ANGIOGRAM HEAD WO CONTRAST (GENERIC) CLINICAL HISTORY: right opthalmic aneurysm TECHNIQUE: MRA of the head performed without contrast. 3-D MIP reconstructions were created. 3-D [id number]. Axial high-resolution T1 imaging through the [place] band of Garcia was also performed COMPARISON: Previous MRA 11/02/2020 11/11/2019 and 10/17/2018 cerebral angiogram. 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 I have measured it on transverse 3-D [id number] data images. It measures about 4 mm in length and 3.3 mm in diameter at its neck it appears unchanged in morphology when compared with the prior study of 11/02/2020 as well as the study of 11/11/2019. Small aneurysm versus infundibulum of the origin of left ophthalmic artery is again identified measuring about 2 mm in diameter. Continued follow-up is advised. No new aneurysms are evident. The anterior communicating artery and posterior communicating arteries appear normal. Middle cerebral trifurcations and posterior circulation shows no additional aneurysms. Procedure Note Nazario Cedillo MD - 11/24/2021 EXAMINATION: MRI ANGIOGRAM HEAD WO CONTRAST (GENERIC) CLINICAL HISTORY: right opthalmic aneurysm TECHNIQUE: MRA of the head performed without contrast. 3-D MIP reconstructions were created. 3-D [id number]. Axial high-resolution T1 imaging through thecircle of Garcia was also performed COMPARISON: Previous MRA 11/02/2020 11/11/2019 and 10/17/2018 cerebral angiogram. FINDINGS: Again noted is a small aneurysm at the origin of the right ophthalmicartery. I have measured it on transverse 3-D ohnc-he-fikfmu data images. It measuresabout 4 mm in length and 3.3 mm in diameter at its neck it appears unchangedin morphology when compared with the prior study of 11/02/2020 as well as thestudy of 11/11/2019. Small aneurysm versus infundibulum of the origin of left ophthalmic artery is again identified measuring about 2 mm in diameter. Continued follow-up is advised. No new aneurysms are evident. The anterior communicating artery andposterior communicating arteries appear normal. Middle cerebral trifurcations and posterior circulation shows no additional aneurysms. IMPRESSION Stable right ophthalmic aneurysm. Stable tiny left ophthalmic aneurysm versus infundibulum. Continuedfollow-up is advised Thank you for letting us participate in the care of this patient. If youare a health care provider and have any questions regarding this report,please contact the number below. For patients who have questions please contactthe health nursing care attendant that requested your imaging first. Dennise Jaimes APRN IMG MRI ORDERABLES documented in this encounter Visit Diagnoses Diagnosis Cerebral aneurysm Cerebral aneurysm, nonruptured documented in this encounter Administered Medications Inactive Administered Medications - up to 3 most recent administrations Medication Order MAR Action Action Date Dose Rate Site diazePAM (Valium) tablet 5 mg 5 mg, Oral, EVERY 30 MIN PRN, 2 doses, Starting on Sat11/24/21 at 0705, Until Sat11/24/21 at 1028, Anxiety, Minimal Sedation per Department of Radiology Adult Minimal Sedation Guidelines: Give 50 minutes prior to scan., Angio/IR (Day of Procedure), Routine Given 11/24/2021 10:28 AM EDT 5 mg Given 11/24/2021 9:45 AM EDT 5 mg documented in this encounter Care Teams Clinical Rn Liaison Relationship Specialty Start Date End Date Claudia Belle APRN [address] [place] [address] PCP - General Family Medicine 11/11/21 02/23/22 documented as of this encounter
--- OUTSIDE RECORDS SUMMARY | 2023-12-17 01:44 | XMS_ITS | Encounter Summary ---
Author Organization [facility] [place] [address] Care Team Providers Care Bushing Press Operator Name Role Phone Terri Thrasher NAMRATA Primary Care Provider + Encounter Details Date Type Department Care Team (Late st Contact Info) Description 09/24/2018 Ancillary Procedure [place] [phone] Huang Nicole MD [facility] [place] [address] Social History Tobacco Use Types Packs/Day Years [...] [place] [address] Dennise Jaimes APRN [facility] [place] [address] 01/02/2024 2:00 PM EDT Office [place] [address] Dennise Jaimes APRN [facility] [address] 01/10/2024 11:30 AM EDT Office [place] [phone] Alma Delia Martinez MD [facility] [place] [address] documented as of this encounter Procedures Procedure Name Priority Date/Time Associated Diagnosis Comments FILM LIBRARY STORAGE ONLY MR HEAD Routine 09/24/2018 12:00 AM EDT documented in this encounter Results * Film Library- Storage Only MR Head (09/24/2018 12:00 AM EDT) Narrative [facility] - 11/07/2018 10:16 AM EDT This exam is auto-finalizing. It's purpose is for storage only. Huang Nicole MD IMG FILM LIBRARY ORD ERABLES [place], [place] documented in this encounter Visit Diagnoses Not on filedocumented in this encounter Care Teams Bushing Press Operator Relationship Specialty Start Date End Date Terri Thrasher APRN PCP - General Family Medicine 08/01/18 02/14/21 documented as of this encounter
--- OUTSIDE RECORDS SUMMARY | 2023-12-17 01:44 | XMS_ITS | Encounter Summary ---
Author Organization [facility] [place] [address] Care Team Providers Care Kennel Aide Name Role Phone Lashawn Mcnally APRN Primary Care Provider Reason for Visit * Consultation (Routine) - Closed Specialty Diagnoses / Procedures Referred By Jesika maddox Referred To Contact Endocrinology Diagnoses Nontoxic single thyroid nodule BILAT THYROID NODULES Lashawn Mcnally APRN [address] [place] [address] [facility] [address] [place] [address] Referral ID Status Reason Start Date Expiration Date V isits Requested Visits Authorized [id number] Closed Consult, Test & Treat Connection Center PCP Updated and/or Approved 02/07/2021 02/07/2022 12 12 Encounter Details Date Type Department Care Team (Late st Contact Info) Description 09/05/2021 11:00 AM EDT Office Visit [place] [address] Hector Navas, [facility] [place] [address] Multinodular goiter Social History Tobacco Use Types Packs/Day Years [...] Sign Reading Time Taken Comments Blood Pressure 103/43 09/05/2021 10:57 AM EDT Pulse 80 09/05/2021 10:57 AM EDT Temperature 37.4 ??C (99.4 ??F) 09/05/2021 10:57 AM E DT Respiratory Rate - - Oxygen Saturation 100% 09/05/2021 10:57 AM EDT Inhaled Oxygen Concentration - - Weight - - Height 162.6 cm (5' 4) 09/05/2021 10:57 AM EDT Body Mass Index - - documented in this encounter Progress Notes * Hector Navas, DO - 09/05/2021 11:00 AM EDT Images from the original note were not included. Ms. Holly Mcnally is an 40 y.o. female who presents in consultation for chief complaint of thyroidnodules Referred by: Lashawn Mcnally APRN 40-year-old female presents for evaluation thyroid nodule. She does not recall how it was first discovered. She does not have significant compressive symptoms. She has some cold intolerance, some decreased appetite with weight loss and fatigue. There is family history of thyroid cancer in her grandmother. She has not been exposed to any radiation that she knows of. Do not have thyroid function labs recently but she reports she thinks these were done just last month at [facility]. Review of Systems: Review of Systems Constitutional: Positive for appetite change, fatigue and unexpected weight change. HENT: Negative for trouble swallowing. Cardiovascular: Negative for palpitations. Gastrointestinal: Negative for constipation and diarrhea. Endocrine: Positive for cold intolerance. Negative for heat intolerance. Genitourinary: Negative for menstrual problem. Neurological: Negative for tremors. Past Medical History: Diagnosis Date ??? Anxiety ??? Asthma ??? Bronchitis ??? Cerebral aneurysm ??? Depression ??? Headache ??? PTSD (post-traumatic stress disorder) Past Surgical History: Procedure Laterality Date ??? BREAST CYST EXCISION Right mar 2015 duct removal ??? CHOLECYSTECTOMY ??? DILATION AND CURETTAGE OF UTERUS ??? HERNIA REPAIR ??? IR ARTERIOGRAM CEREBRAL 10/07/2018 IR Arteriogram Cerebral 10/07/2018 Eugenio Hernandez MD [facility] INTERVENTIONL RAD Social History Socioeconomic History ??? Marital status: Single Spouse name: Not on file ??? Number of children: Not on file ??? Years of education: Not on file ??? Highest education level: Not on file Occupational History ??? Not on file Tobacco Use ??? Smoking status: Former Smoker Packs/day: 0.75 Years: 22.00 Pack years: 16.50 Types: Cigarettes Quit date: 10/28/2020 Years since quittin.8 ??? Smokeless tobacco: Never Used ??? Tobacco comment: smokes 8-10 cig per day Vaping Use ??? Vaping Use: Never used Substance and Sexual Activity ??? Alcohol use: Never ??? Drug use: Never ??? Sexual activity: Not on file Other Topics Concern ??? Not on file Social History Narrative ??? Not on file Social Determinants of Health Financial Resource Strain: Not on file Food Insecurity: Not on file Transportation Needs: Not on file Physical Activity: Not on file Housing Stability: Not on file Family History Problem Relation Age of Onset ??? Cancer Maternal Aunt ??? Cancer Maternal Grandmother ??? Osteoporosis Neg Hx Current Outpatient Medications: ??? multivitamin (THERAGRAN) Tablet, Take 1 tablet by mouth daily. When you remember, Disp: , Rfl: ??? FLUoxetine (PROzac) 20 mg Capsule, 1 capsule daily., Disp: , Rfl: ??? Xopenex HFA 45 mcg/actuation HFA Aerosol Inhaler, as needed., Disp: , Rfl: ??? ascorbic acid, Vitamin C, (Vitamin C) 250 mg Tablet, Take 250 mg by mouth daily. When remembered, Disp: , Rfl: ??? busPIRone (Buspar) 5 mg Tablet, 1 tablet daily., Disp: , Rfl: ??? gabapentin (NEURONTIN) 100 mg Capsule, 100 mg AM 200 mg HS (Patient not taking: No sig reported), Disp: 90 capsule, Rfl: 12 ??? cyclobenzaprine (FLEXERIL) 5 mg Tablet, Take 1 tablet by mouth nightly. (Patient not taking: Nosig reported), Disp: 30 tablet, Rfl: 0 ??? nicotine (NICODERM CQ) 21 mg/24 hr Patch 24 hr, Place 1 patch onto the skin daily. See package instructions (Patient not taking: No sig reported), Disp: 28 patch, Rfl: 0 ??? nicotine (NICOTROL) 10 mg Cartridge, Inhale 1 puff into the lungs as needed for Smoking cessation (No more than 16 cartridges per day). (Patient not taking: No sig reported), Disp: 1 each, Rfl: 2 Allergies Allergen Reactions ??? Amoxicillin Nausea And Vomiting Passed out ??? Asa Buff (Mag Carb-Al Glyc) [Aspirin, Buffered] Anxiety ??? Codeine Nausea Only ??? Nsaids (Non-Steroidal Anti-Inflammatory Drug) Palpitations Physical Exam: Patient Vitals for the past 24 hrs: Temp Pulse BP SpO2 09/05/21 1057 37.4 ??C (99.4 ??F) 80 103/43 100 % General: no acute distress, pleasant, sitting comfortably Eyes: no lid lag; normal eye movements Neck: no supraclavicular fat pads; no thyroid enlargement or palpable masses Lymphatic: no palpable cervical lymph nodes Respiratory: symmetrical chest expansion, breathing comfortably on room air without audible wheeze or stridor Cardiovascular: RRR Musculoskeletal: moving all 4 extremities normally. normal female musculature Skin: normal temperature/texture, no jaundice or pallor Neurological: no tremors, normal gait Psychological: alert/oriented to person, place, time; normal affect; memory intact; normal judgement/insight Radiology Studies: Assessment / Plan: 40-year-old female presents for evaluation of thyroid nodules. She also has symptoms of decreased appetite with associated weight loss and cold intolerance. She reports that she recently has had thyroid labs checked but we do not have a copy of these. We will try to obtain these from [facility]. Bedside ultrasound today reveals bilateral mixed solid/cystic nodules in either which FNA criteria. Please see separate ultrasound report for details. Recommend repeat ultrasound in 1 year to assess stability. -Repeat thyroid ultrasound in 1 year. A note will be sent to the referring provider Return to clinic in 12 months Discussed with attending physician, Dr. Sharp. It was a pleasure to be involved in the care of Holly Mcnally. If you have any questions about themanagement and treatment plan as outlined above, or if I can be of further assistance, please do not hesitate to contact me. Sincerely, Hector Navas, DO Endocrinology Fellow * Hector Navas DO - 09/05/2021 11:00 AM EDT Images from the original note were not included. ENDOCRINOLOGY THYROID ULTRASOUND REPORT Patient:Holly Mcnally, [id number] Date of exam: 09/06/2021 Indication: thyroid nodule Comparison: 01/31/21 Performed by: Hector Navas DO, Real time images of the thyroid gland were obtained using a [employer] US machine. All measurements are given as Longitudinal/Sagittal x AP x Transverse. Right Lobe: The right lobe measures 3.9cm x 1.6cm x 1.8cm. Right sided nodule: Isthmus: The isthmus measures 3mm. Left Lobe: The left lobe measures 4cm x 1.3cm x 1.2cm. Lateral neck: I examined the lateral neck regions and saw no morphologically abnormal lymph nodes. Impression: Right-sided nodule: 1.1cm x 0.6cm x 0.7cm Solid, hypoechoic, wider than tall, ill-defined borders, no calcifications. TR4 Left-sided nodule 1: 1.1cm x 0.8cm x 1.2cm mixed cystic and solid, hypoechoic, wider than tall, smooth border, no calcifications. TR3 Left-sided nodule 2: 0.6cm x 0.2cm x 0.5cm solid, hypoechoic, wider than tall, ill-defined border, no calcifications. TR 4 Multiple nodules as above, not currently meeting FNA criteria. Recommend follow- up ultrasound in 1 year. Discussed with attending, Dr. Sharp. * Yokasta Sharp MD - 09/05/2021 11:00 AM EDT Patient seen and seen and evaluated by me and Dr. Navas. I agree with her above assessment and plan. Thyroid nodules do not meet FNA criteria and TFTs are P (will be sending over). Other as per fellow. Yokasta Sharp MD Professor documented in this encounter Plan of Treatment Upcoming Encounters Date Type Department Care Team (Late st Contact Info) Description 01/01/2024 9:10 AM EDT Office [place] [address] Clinic, Dr Alfaro Team None 01/02/2024 11:10 AM [place] [address] Dennise Jaimes, [facility] [place] [address] 01/02/2024 2:00 PM EDT Office [place] [address] Dennise Jaimes, [place] [address] 01/10/2024 11:30 AM EDT Office [place] [address] Alma Delia Martinez MD [facility] [place] [address] documented as of this encounter Visit Diagnoses Diagnosis Multinodular goiter Nontoxic multinodular goiter documented in this encounter Care Teams Kennel Aide Relationship Specialty Start Date End Date Lashawn Mcnally APRN [address] [place] [address] PCP - General Family Medicine 02/15/21 11/10/21 documented as of this encounter
--- OUTSIDE RECORDS SUMMARY | 2023-12-17 01:44 | XMS_ITS | Encounter Summary ---
[place] [address] Care Team Providers Care Detailer School Photographs Name Role Phone Terri Thrasher NAMRATA Primary Care Provider + Reason for Referral * Diagnostic Test (Routine) - Closed Specialty Diagnoses / Procedures Referred By Jesika maddox Referred To Contact Radiology Diagnoses Cerebral aneurysm without rupture Procedures MRI Angiogram Head wo Contrast (Generic) [facility] [address] [place] [address] [facility] [place] [address] Referral ID Status Reason Start Date Expiration Date V isits Requested Visits Authorized [id number] Closed Specialty Service Requested 08/17/2019 02/16/2021 1 1 Encounter Details Date Type Department Care Team (Late st Contact Info) Description 08/17/2019 Orders [place] [address] Mallory Delgado RN Cerebral aneurysm without rupture Social History Tobacco [...] 9:10 AM EDT Office Visit [place] [address] Clinic, Dr Alfaro Team None 01/02/2024 11:10 AM [place] [address] Dennise Jaimes, FAMILY CENTERED SPECIALIST [facility] [place] [address] 01/02/2024 2:00 PM EDT Office Visit Neurosurgery at [place] [phone] Dennise Jaimes, [place] [address] 01/10/2024 11:30 AM EDT Office Visit [place] [address] Alma Delia Martinez MD [facility] [place] [address] documented as of this encounter Results * MRI Angiogram Head wo Contrast (Generic) (11/11/2019 2:00 PM EDT) Anatomical Region Laterality Modality Head Magnetic Resonan ce Impressions 11/11/2019 3:32 PM EDT Stable bilateral ophthalmic artery origin aneurysms, 4 mm on the right and 2 mm on the left. Thank you for letting us participate in the care of this patient. For questions regarding this report, please contact the number below. ? Electronically signed by: Lillian Farnsworth [facility] ([phone]), at 11/11/2019 3:32 PM Narrative 11/11/2019 3:32 PM EDT EXAMINATION: MRI ANGIOGRAM HEAD WO CONTRAST (GENERIC) CLINICAL HISTORY: Cerebral aneurysm, follow-up. right ophthalmic aneurysm TECHNIQUE: MRA of the head performed without contrast. 3-D MIP reconstructions were created. COMPARISON: MRA head 09/24/2018 FINDINGS: Stable 4 mm aneurysm at the origin of the right ophthalmic artery. Stable 2 mm aneurysm at the origin of the left ophthalmic artery. No additional aneurysm. No vascular malformation, significant arterial stenosis, or arterial cut off. Procedure Note Lillian Farnsworth MD - 11/11/2019 EXAMINATION: MRI ANGIOGRAM HEAD WO CONTRAST (GENERIC) CLINICAL HISTORY: Cerebral aneurysm, follow-up. right ophthalmicaneurysm TECHNIQUE: MRA of the head performed without contrast. 3-D MIP reconstructions were created. COMPARISON: MRA head 09/24/2018 FINDINGS: Stable 4 mm aneurysm at the origin of the right ophthalmic artery. Stable 2 mm aneurysm at the origin of the left ophthalmic artery. No additional aneurysm. No vascular malformation, significant arterialstenosis, or arterial cut off. IMPRESSION Stable bilateral ophthalmic artery origin aneurysms, 4 mm on the right and2 mm on the left. Thank you for letting us participate in the care of this patient. Forquestions regarding this report, please contact the number below. Electronically signed by: ROSETTA Tavares [facility] ([phone]),at 11/11/2019 3:32 PM Eugenio Hernandez MD IMG MRI ORDERABLES documented in this encounter Visit Diagnoses Diagnosis Cerebral aneurysm without rupture Cerebral aneurysm, nonruptured Cerebral aneurysm without rupture Cerebral aneurysm, nonruptured documented in this encounter Care Teams Detailer School Photographs Relationship Specialty Start Date End Date Terri Thrasher APRN PCP - General Family Medicine 08/01/18 02/14/21 documented as of this encounter
--- OUTSIDE RECORDS SUMMARY | 2023-12-17 01:44 | XMS_ITS | Encounter Summary ---
[place] [address] Care Team Providers Care Parts Back Counter Man Name Role Phone Terri Thrasher NAMRATA Primary Care Provider + Encounter Details Date Type Department Care Team (Latest Contact Info) Description 10/07/2018 6:30 AM EDT Laboratory Appointment Lab at [place] [phone] Pre-op testing; Facial droop; Aneurysm Social History Tobacco Use Types Packs/Day Years [...] 9:10 AM EDT Office [place] [address] Clinic, Dr Alfaro Team None 01/02/2024 11:10 [place] [address] Dnenise Jaimes PIANO BENCH ASSEMBLER [facility] [place] [address] 01/02/2024 2:00 PM EDT [place] [address] [place] [address] 01/10/2024 11:30 AM EDT Office [place] [address] Alma Delia Martinez MD [facility] [place] [address] documented as of this encounter Procedures Procedure Name Priority Date/Time Associated Diagnosis Comments APTT STAT 10/07/2018 6:35 AM EDT PROTHROMBIN TIME STAT 10/07/2018 6:35 AM EDT Aneurysm Pre-op testing PLATELET COUNT STAT 10/07/2018 6:35 AM EDT Pre-op testing Facial droop documented in this encounter Results * APTT (10/07/2018 6:35 AM EDT) PTT 29 25 - 37 sec [facility] Comment: The PTT is NOT appropriate for heparin monitoring. Use the Anti-Xa level for heparin monitoring (HEP UFH) or LMWH monitoring (HEP LMW). A PTT less than 37 seconds generally indicates adequate hemostasis. Blood specimen (specimen) Venous Draw / Unknown 10/07/2018 6:35 AM EDT 10/07/2018 7:10 AM EDT Narrative Resulting Agency Comment Spec In Lab Carlos Meraz DO HEMATOLOGY ORDERABLE S [facility] [place] [address] * Prothrombin Time (10/07/2018 6:35 AM EDT) PT 9.9 9.4 - 12.5 sec [facility] INR 0.9 [facility] Comment: An INR <2.0 indicates adequate procoagulant activity for hemostasis in most patients without underlying bleeding disorders, though the INR may not adequately reflect hemostatic capacity in patients with liver disease and synthetic impairment. The recommended target INR range for therapeutic anticoagulation is 2.0 ? 3.0 for most applications, though lower and higher ranges may be appropriate depending on clinical circumstances. Blood specimen (specimen) 10/07/2018 6:35 AM EDT 10/07/2018 7:10 AM EDT Narrative Resulting Agency Comment Spec In Lab Eugenio Hernandez MD HEMATOLOGY ORDERABLE S [facility] [place] [address] * Platelet count (10/07/2018 6:35 AM EDT) Platelets 292 145 - 357 x10(3)/mc L [facility] Plat Immature % 1.5 0.0 - 7.4 % [facility] Comment: Limitation of the Immature Platelet Fraction (IPF)-May be less reliable when the platelet count is less than 26j263/uL due to statistical imprecision. The IPF value provides an assessment of the Bone Marrow production status. ??It is useful in differentiating Thrombocytopenia caused by platelet destruction/consumption versus decreased production. It also helps to determine the imminent release of platelets and can be therefore a helpful parameter in Chemotherapy and Bone marrow transplant patients. ELEVATED IPF value: ?? When the bone marrow is in a state of over production such as when increased destruction and consumption are the underlying issue. ?? When the marrow is recovering post chemotherapy or bone marrow transplant. LOW to NORMAL IPF value: ?? When the bone marrow in not responding and is in a decreased state of production. References: [employer] The Clinical Value of the Immature Platelet Fraction (IPF) in Cell Recovery Document Number [id number] 11/2010 [employer] The Role of the Immature Platelet Fraction (IPF) in the Differential Diagnosis of Thrombocytopenia, Document [id number] V05 P014 Blood specimen (specimen) 10/07/2018 6:35 AM EDT 10/07/2018 7:10 AM EDT Narrative Resulting Agency Comment Spec In Lab Eugenio Hernandez MD HEMATOLOGY ORDERABLE S [facility] [place] [address] documented in this encounter Visit Diagnoses Diagnosis Pre-op testing Preoperative examination, unspecified Facial droop Facial weakness Aneurysm Aneurysm of unspecified site documented in this encounter Care Teams Parts Back Counter Man Relationship Specialty Start Date End Date Terri Thrasher, [employer]SEMBLER PCP - General Family Medicine 08/01/18 02/14/21 documented as of this encounter
--- OUTSIDE RECORDS SUMMARY | 2023-12-17 01:44 | XMS_ITS | Encounter Summary ---
Author Organization [facility] [place] [address] Care Team Providers Care Nursing Assistant Name Role Phone Terri Thrahser NAMRATA Primary Care Provider + Reason for Referral * Consultation (Routine) - Closed Specialty Diagnoses / Procedures Referred By Contac t Referred To Contact Thoracic Surgery Diagnoses Nicotine dependence, cigarettes, uncomplicated Tobacco abuse counseling Eugenio Hernandez MD [facility] [place] [address] Dot Garcia V SUPERVISOR LAUN[employer] [facility] [place] [address] Referral ID Status Reason Start Date Expiration Date V isits Requested Visits Authorized [id number] Closed Consult, Test & Treat 09/03/2018 09/03/2019 1 1 Reason for Visit * Reason Comments Advice Only Right infundibulum v s 4mm outpouching on CTA * Consultation (Routine) - Closed Specialty Diagnoses / Procedures Referred By Contac t Referred To Contact Neurosurgery Diagnoses Right infundibulum vs 4mm outpouching on CTA without corresponding symptoms. Mil Darby MD [facility] [place] [address] Eugenio Hernandez MD [facility] [place] [address] Referral ID Status Reason Start Date Expiration Date V isits Requested Visits Authorized [id number] Closed Consult, Test & Treat 08/12/2018 08/12/2019 1 1 Encounter Details Date Type Department Care Team (Late st Contact Info) Description 09/03/2018 1:00 PM EDT Office Visit Neurosurgery at [facility] [place] [address] Eugenio Hernandez MD [facility] DR [place] [address] Nicotine dependence, cigarettes, uncomplicated; Tobacco abuse counseling; Cerebral aneurysm without rupture Social History Tobacco Use Types Packs/Day Years Used Date Smoking Tobacco: Every Day Cigarettes Smokeless Tobacco: Never Comments:smokes 4-5 cig per day Alcohol Use Standard Drinks/Week Comments Never 0 (1 standard drink = 0.6 oz pur e alcohol) Sex and Gender Information Value Date Recorded Sex Assigned at Not on file Gender Identity Not on file Sexual Orientation Not on file documented as of this encounter Last Filed Vital Signs Vital Sign Reading Time Taken Comments Blood Pressure 118/70 09/03/2018 12:05 PM EDT Pulse 83 09/03/2018 12:05 PM EDT Temperature - - Respiratory Rate - - Oxygen Saturation - - Inhaled Oxygen Concentration - - Weight 99.2 kg (218 lb 11.1 oz) 019 12:05 PM EDT Height 162.6 cm (5' 4) 09/03/2018 12:0 5 PM EDT Body Mass Index 37.54 09/03/2018 12:05 PM EDT documented in this encounter Patient Instructions * Patient Instructions* Eugenio Hernandez MD - 09/03/2018 1:00 PM EDT Tobacco Treatment: Nicotine Replacement Instructions Nicotine patch instructions: Place the patch on your skin in an area that has a minimal amount of hair, typically between the neck and waist or upper arms. Avoid placing it over scars or tattoos. Change the place where you put it on your skin daily. Remove the patch each morning and replace with a new patch. Fold the patch in half, with the sticky sides in and dispose of it safely, keeping it out of reach of children or pets. Some patients experience nightmares or bad dreams on the patch. If this happens you should remove the patch at bedtime and just replace it each morning. The nicotine patch releases a constant amount of nicotine in the body. The nicotine dissolves rightthrough the skin and enters the body. Less nicotine is obtained through the patch than in cigarettes. The patch does NOT contain all the tars and poisonous gases that are found in cigarettes. Side effects from wearing the patch can include: headaches, dizziness, upset stomach, weakness, blurred vision, vivid dreams, mild itching and burning on the skin, and diarrhea. Wearing the nicotine patch decreases the chances of suffering from several of the major smoking withdrawal symptoms such as tenseness, irritability, drowsiness and lack of concentration. The nicotine patch can be combined with other Nicotine Replacement Therapy products such as Nicotine gum or lozenges. Ask your healthcare provider about combination therapy to increase your chances of successfully quitting tobacco for good! The US Food and Drug Administration has recently released a statement that there are no significantrisks associated with the use of Nicotine Replacement Therapy products for longer than the labeled number of weeks of use. If you are still having strong cravings to smoke or are struggling to quit completely while using the Nicotine patch talk with your healthcare provider for additional help. Nicotine gum instructions: Nicotine gum must be used properly in order to be effective. Nicotine from Nicotine gum is absorbedthrough the mucous membranes in your mouth at a certain acidity or pH level. Therefore do not eat or drink anything but water for 15 minutes prior to or during use. It should be chewed until a peppery sensation is felt in the mouth and then parked between the cheek and gum until that sensation is gone, then begin chewing again until the peppery feeling comes back again, parking and chewing as described until all of the peppery sensation has gone from the gum. This may take 20-30 minutes. Try tonot swallow the saliva or it may cause an upset stomach. The gum is to be disposed of carefully in the trash where no pets or young children could get ahold of it, as there is always a small amount of nicotine left in the remains of the gum and could sicken a child or pet. The nicotine gum comes in two strengths, 2 mg and 4 mg. You should use the 2 mg gum if you smoke your first cigarette more than 30 minutes after waking. You should use the 4 mg gum if you smoke your first cigarette less than 30 minutes after waking. Chew enough Nicotine gum to reduce withdrawal symptoms, usually starting by chewing a piece of gum every 1-2 hours for the first few days after quitting. Common side effects from Nicotine gum include mouth soreness, hiccups, upset stomach, jaw ache. These usually do not last long and can be reduced or eliminated by correct use of the gum. Nicotine gum can be combined with Nicotine patches for increased chances of successfully quitting tobacco for good! The US Food and Drug Administration has recently released a statement that there are no significantrisks associated with the use of Nicotine Replacement Therapy products for longer than the labeled number of weeks of use. Maximum dosage is 24 pieces of Nicotine gum/24 hours. Nicotine lozenge instructions: Nicotine lozenges must be used properly in order to be effective. Nicotine from the lozenge is absorbed through the mucous membranes in your mouth at a certain acidity or pH level. Therefore do not eat or drink anything but water for 15 minutes prior to or during use. Place the nicotine lozenge on the tongue or between the cheek and the jaw. Allow the lozenge to dissolve. Do not bite, chew or swallow whole or in pieces. Do not work the lozenge like a hard candy or you may create too much saliva and swallow this extra liquid which may upset your stomach. The most common side effects from Nicotine lozenges are nausea, hiccups and heartburn. This can be reduced by following the instructions for proper use. Nicotine lozenges come in two strengths, 2 mg and 4 mg. You should use the 2 mg lozenge if you smoke your first cigarette more than 30 minutes after waking. You should use the 4 mg lozenge if you smoke your first cigarette less than 30 minutes after waking. Nicotine lozenges can be combined with Nicotine patches for increased chances of successfully quitting tobacco for good! The US Food and Drug Administration has recently released a statement that there are no significantrisks associated with the use of Nicotine Replacement Therapy products for longer than the labeled number of weeks of use. Maximum dose is 20 lozenges/24 hours. Nicotine inhaler instructions: One dose of nicotine from the inhaler consists of a puff or inhalation. Each cartridge delivers a total of 4 mg of nicotine over 80 inhalations. The recommended dosage is 6-16 cartridges a day. The nicotine is delivered in the form of an inhaler. Nicotine from the inhaler is absorbed through the mucous membranes in your mouth at a certain acidity or pH level. Therefore do not eat or drink anything but water for 15 minutes prior to or during use. Delivery of nicotine from the inhaler declines significantly at temperatures below 40 degrees F. Incold weather, the inhaler and cartridges should be kept in an inside pocket or other warm area. Common side effects include local irritation in the mouth and throat. Coughing and runny nose can also occur. These are generally mild and decline with continued use. The US Food and Drug Administration has recently released a statement that there are no significantrisks associated with the use of Nicotine Replacement Therapy products for longer than the labeled number of weeks of use. References: Treating Tobacco Use and Dependence, Clinical Practice Guideline 2008 Update, U.S. Department of Health and Human Services, October 2007 U.S. Food and Drug Administration Recommendations, revised directions for use of Nicotine Replacement Therapy , September 02, 2012: https://www.federalregister.gov/articles//2013-02192/modifications-to- pvpwsgwg-zs-zrwcwnip-cwfkifliohj-kintlxm-kajgapxf-ofc-cejx-fev-zpqgysu-pjhtl-bes documented in this encounter Progress Notes * Eugenio Hernandez MD - 09/03/2018 1:00 PM EDT Interventional Neuroradiology Clinic Initial Visit Office Note Note Author: Eugenio Hernandez MD Chief Complaint: Cerebral aneurysm History of present illness: Holly Mcnally is a 37 y.o. woman with an unruptured cerebral aneurysm,referred for evaluation and possible treatment. The aneurysm was initially discovered on a CTA obtained for evaluation of headache and dizziness. She has not suffered any known subarachnoid hemorrhage or experienced thunderclap headache. FHx: Father with PCKD Allergies Allergen Reactions ??? Asa Buff (Mag Carb-Al Glyc) [Aspirin, Buffered] Anxiety ??? Codeine Nausea Only ??? Nsaids (Non-Steroidal Anti-Inflammatory Drug) Palpitations Physical exam: Most Recent Vitals: 09/03/18 1205 BP: 118/70 Pulse: 83 Alert, pleasant in no acute distress. Alert, oriented x 3 Speech fluent Normal naming, repetition Imaging studies: CTA shows a right-sided 4 mm aneurysm arising both in the carotid cave and in close proximity to a low ophthalmic artery. Its neck measures 3-4 mm. The ophthalmic artery origin is difficult to ascertain with certainty. 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 The estimated 5-year riskof rupture for such an aneurysm is less than 1% every 5 years. We discussed the natural history and treatment options for this aneurysm, including clip occlusion and coil embolization. We discussed the nature of endovascular coiling and its relative merits. Withthis particular aneurysm, coil embolization would be preferred if it is feasible. Risk of longstanding morbidity or mortality with endovascular treatment is approximately 3%. We discussed the specific treatment risks for endovascular options (including bleeding in the head, stroke, , damage toblood vessels, device malfunction, bleeding at groin, infection, adverse reaction to medications). It is not clear whether the ophthalmic artery arises from the aneurysm or its base and this may affect feasiblility of coiling. We could do cerebral angiogram under moderate sedation first or do the procedure with GA and proceed to coiling immediately if feasible in just one procedure. It is likelythat a stent will be needed Either treatment or surveillance are reasonable here. We discussed the many factors that go into making this difficult decision. For surveillance we would do yearly MRA at first. She is a smoker and we discussed the risks of smoking on aneurysm behavior. She is interested in smoking cessation Plan: She will consider her options and call us Smoking cessation Of this 40 minute visit, 40 minutes was spent in counseling and coordination of care. documented in this encounter Plan of Treatment Upcoming Encounters Date Type Department Care Team (Late st Contact Info) Description 01/01/2024 9:10 AM EDT Office [place] [address] Clinic, Dr Alfaro Team None 01/02/2024 11:10 AM [place] [phone] Dennise Jaimes APRN [facility] [place] [address] 01/02/2024 2:00 PM EDT [place] [address] Dennise Jaimes APRN [facility] [place] [address] 01/10/2024 11:30 AM EDT Office [place] [address] Alma Delia Martinez MD [facility] [place] [address] Scheduled Referrals Name Type Priority Associated Diagnoses Orde r Schedule Referral to Smoking Cessation Program Outpatient Referral Routine Nicotine dependence, cigarettes, uncomplicated Tobacco abuse counseling Ordered: 09/03/2018 documented as of this encounter Visit Diagnoses Diagnosis Nicotine dependence, cigarettes, uncomplicated Tobacco abuse counseling Counseling on substance use and abuse Cerebral aneurysm without rupture Cerebral aneurysm, nonruptured documented in this encounter Care Teams Nursing Assistant Relationship Specialty Start Date End Date Terri Thrasher APRN PCP - General Family Medicine 08/01/18 02/14/21 documented as of this encounter
--- OUTSIDE RECORDS SUMMARY | 2023-12-17 01:44 | XMS_ITS | Encounter Summary ---
[facility] Organization [facility] [place] [address] Care Team Providers Care Mallet Cutter Name Role Phone Terri Thrasher GOLF PLAYER ASSISTANT Primary Care Provider + Encounter Details Date Type Department Care Team (Late st Contact Info) Description 09/23/2018 [place] [address] Veronica Michael Social History Tobacco Use Types Packs/Day Years [...] encounter Miscellaneous Notes * Telephone Encounter - Mallory Delgado - 09/25/2018 9:13 AM EDT Relayed the following message from Dr. Hernandez to Holly: Not related to aneurysm. Hope its gone by now. If persisting, would recommend urgent visit to pcp or trip to ER. * Telephone Encounter - Mallory Delgado - 09/23/2018 4:31 PM EDT Date of Call: 09/23/2018 Person Calling: Holly Patient: Holly Mcnally : 1980 Patient ID : [id number] y.o. female, patient of Dr. Hernandez. Reason for call: Symptoms Subjective: Holly calls today w/ lip numbness, face twitching and eye with pulse and twitch. She states these symptoms began yesterday. She denies a headache or other neurological deficits. Assessment/Plan: I have sent a message to Dr. Hernandez asking if he could advise re. Her symptoms. In the meantime I let her know that if she develops a headache or any neurological deficits she needs to go to her local ED for evaluation. She verbalized an understanding of this * Telephone Encounter - Veronica Michael - 09/23/2018 3:52 PM EDT Caller: Patient If not the patient: Name of caller: Relationship to patient: Personal Rep on file?: Best time to reach caller: ILA Best number to reach caller: Reason for call: Pt LM on my old phone stating she has lip numbness, face twitching and eye with pulse and twitch. She is scheduled for 10/[address] Hernandez. Please call to discuss Recent Surgery?: no If before 4:00 pm: Inform caller that the typical expectation for a call back is within 1-2 hours. If after 4:00 pm: Inform caller that if the nurse does not call back by the end of the day, they will be called in the AM of the next business day. documented in this encounter Plan of Treatment Upcoming Encounters Date Type Department Care Team (Late st Contact Info) Description 01/01/2024 9:10 AM EDT Office [place] [phone] Clinic, Dr Alfaro Team None 01/02/2024 11:10 AM [place] [phone] Dennise Jaimes APRN [facility] [place] [address] 01/02/2024 2:00 PM EDT [place] [address] [place] [address] 01/10/2024 11:30 AM EDT Office [place] [address] Alma Delia Martinez MD [facility] [place] [address] documented as of this encounter Visit Diagnoses Not on filedocumented in this encounter Care Teams Mallet Cutter Relationship Specialty Start Date End Date Terri Thrasher APRN PCP - General Family Medicine 08/01/18 02/14/21 documented as of this encounter
--- OUTSIDE RECORDS SUMMARY | 2023-12-17 01:44 | XMS_ITS | Encounter Summary ---
Author Organization [facility] [place] [address] Care Team Providers Care Single Corner Cutter Name Role Phone Terri Thrasher NAMRATA Primary Care Provider + Encounter Details Date Type Department Care Team (Late st Contact Info) Description 09/24/2018 [place] [address] Candace Hollingsworth LOAD TEST MECHANIC [facility] [place] [address] Social History Tobacco Use Types Packs/Day Years [...] encounter Miscellaneous Notes * Telephone Encounter - Candace Hollingsworth APRN - 09/24/2018 2:08 AM EDT Telephone note: Called by Nguyen Jones KEY ENTRY OPERATOR regarding patient Holly Mcnally. Patient had presented to [facility] with c/o headache with visual disturbance (black dots) and RIGHT facial droop. No other neuro deficits. At time of call PEDRO Jones reported that facial droop was improving. Patient was recently diagnosed with a 4 mm aneurysm arising both in the carotid cave and in close proximity to a low ophthalmic artery. She is scheduled for an angiogram on 10/[address] CT performed and is negative for hemorrhage. Case discussed with Dr. Ojeda, with the following recommendations: Perform lumbar puncture to assess for xanthochromia. If positive, we would bring patient in, if negative patient would require a stroke work up. Maintain BP <140 Hold anticoagulation/antiplatelets therapys (not currently on any) KEY ENTRY OPERATOR Robert was agreeable with this plan. We are available for any further questions or concerns. Candace Hollingsworth APRN documented in this encounter Plan of Treatment Upcoming Encounters Date Type Department Care Team (Late st Contact Info) Description 01/01/2024 9:10 AM EDT Office Visit Orthopaedics at [place] [phone] Clinic, Dr Alfaro Team None 01/02/2024 11:10 AM EDT Appointment MRI at [place] [phone] [place] [address] 01/02/2024 2:00 PM EDT Office Visit Neurosurgery at [place] [phone] Dennise Jaimes APRN [place], [place] [id number] 01/10/2024 11:30 AM EDT Office [place] [address] Alma Delia Martinez MD [facility] [place] [address] documented as of this encounter Visit Diagnoses Not on filedocumented in this encounter Care Teams Single Corner Cutter Relationship Specialty Start Date End Date Terri Thrasher APRN PCP - General Family Medicine 08/01/18 02/14/21 documented as of this encounter
--- OUTSIDE RECORDS SUMMARY | 2023-12-17 01:44 | XMS_ITS | Encounter Summary ---
[place] [address] Care Team Providers Care Communication Analyst Name Role Phone Lashawn Mcnally NAMRATA Primary Care Provider [phone] Encounter Details Date Type Department Care Team (Late st Contact Info) Description 01/23/2021 [place] [address] Susan Lees Social History Tobacco Use Types Packs/Day Years [...] encounter Miscellaneous Notes * Telephone Encounter - Susan Lees - 01/23/2021 8:25 AM EDT Caller: Patient Best number to reach caller: [phone] Reason for call: On and off pain in right zoroastrian and neck, pressure in head, right side of head is hot/ not normal Seen yesterday in [facility] ED for similar sx- see Dr. Altman's note Recent Surgery?: no documented in this encounter Plan of Treatment Upcoming Encounters Date Type Department Care Team (Late st Contact Info) Description 01/01/2024 9:10 AM EDT Office [place] [address] Clinic, Dr Alfaro Team None 01/02/2024 11:10 AM EDT Appointment MRI at [place] [address] Dennise Jaimes, [facility] [place] [address] 01/02/2024 2:00 PM EDT Office Visit Neurosurgery at [place] [address] Dennise Jaimes, [facility] [place] [address] 01/10/2024 11:30 AM EDT Office Visit Endocrinology at [place] [phone] Alma Delia Martinez MD [facility] [place] [address] documented as of this encounter Visit Diagnoses Not on filedocumented in this encounter Care Teams Communication Analyst Relationship Specialty Start Date End Date Lashawn Mcnally APRN [address] [place] [address] PCP - General Family Medicine 02/15/21 11/10/21 documented as of this encounter
--- OUTSIDE RECORDS SUMMARY | 2023-12-17 01:44 | XMS_ITS | Encounter Summary ---
Author Organization Formerly [facility] [place] [address] Care Team Providers Care Boiler Water Tester Name Role Phone Terri Thrasher Kartik OTT Primary Care Provider + Reason for Visit * Reason Comments Nicotine Dependence * Consultation (Routine) - Closed Specialty Diagnoses / Procedures Referred By Contjose t Referred To Contact Thoracic Surgery Diagnoses Nicotine dependence, cigarettes, uncomplicated Tobacco abuse counseling Eugenio Hernandez MD [facility] [place] [address] Dot Garcia [place] [address] Referral ID Status Reason Start Date Expiration Date V isits Requested Visits Authorized [id number] Closed Consult, Test & Treat 09/03/2018 09/03/2019 1 1 Encounter Details Date Type Department Care Team (Late st Contact Info) Description 09/16/2018 12:30 PM EDT Office Visit Thoracic Surgery at [facility] [place] [phone] Dot Garcia V TIRE S[place]TER [place] [address] Nicotine dependence, cigarettes, uncomplicated; Tobacco abuse counseling Social History Tobacco Use Types Packs/Day Years Used Date Smoking Tobacco: Every Day Cigarettes 0.8 22 Smokeless Tobacco: Never Tobacco Cessation:Ready to Q [...] Sign Reading Time Taken Comments Blood Pressure 115/66 09/16/2018 12:39 PM EDT Pulse 78 09/16/2018 12:39 PM EDT Temperature 36.6 ??C (97.9 ??F) 09/16/2018 12:39 PM E DT Respiratory Rate 18 09/16/2018 12:39 PM EDT Oxygen Saturation 99% 09/16/2018 12:39 PM EDT Inhaled Oxygen Concentration - - Weight 100.7 kg (222 lb) 09/16/2018 12:39 PM EDT Height 160 cm (5' 2.99) 09/16/2018 12:39 PM EDT Body Mass Index 39.34 09/16/2018 12:39 PM EDT documented in this encounter Patient Instructions * Patient Instructions* Dot Garcia APRN - 09/16/2018 12:30 PM EDT Tobacco Treatment: Nicotine Replacement Instructions [...] Nicotine Replacement Therapy , September 02, 2012: https://www.federalregister.gov/articles//2013-70498/modifications-to- myawuekp-lx-lqestmmj-jcmyhciexrt-gcesbmz-rxezysqy-yoj-rnvs-uix-olfxutw-mftxt-lrf documented in this encounter Progress Notes * Dot Garcia APRN - 09/16/2018 12:30 PM EDT Thoracic Surgery - Tobacco Cessation Consultation Dot Garcia APRN [place] [address] FAX: HPI: Holly Mcnally is a 38 y.o. female who is being seen today for tobacco cessation. Type of tobacco used: () Smokeless tobacco () e-cigarette (x)Cigarettes Brand currently smoking: Axel Elias Current amount: 0.5 ppd (weaned down from 0.75 ppd last week) Age initiated: 16 yrs Years smoked: 22 Most/least smoked: 0.5-0.75 ppd Previous quit attempts and methods: tried Chantix once but reported significant mood swings and feelings of anger, has also tried gum (unable to chew because she does not have teeth) and lozenges butreport significant burning sensation using 2 mg and 4 mg Most recent quit attempt: currently trying to wean down and using the 14 mg nicotine patch for the last week, she reports cravings still significant while using the 14 mg patch Are there other smokers in the home: yes, fiance Are there children in the home: yes, two boys (6 and 8) What will be different this time: I don't want to Positive aspects of smoking: helps with anxiety, anger, and bad time, my crutch Negative aspects of smoking: its going to kill me, kids, smell, taste Reasons for quitting: Kids, health Concerns about quitting: making it over the mental part of quitting smoking Concerns about weight gain: yes Triggers for smoking: driving, first thing in AM, stress/PTSD Ready to set a quit date: Yes, [birth year] (grandma's birthday) Readiness: - Importance scale: 10 (kids, brain aneurysm, poor circulation, lungs) - Confidence scale: 5 (need something to get passed that hold) Support systems include: arnoldo who is also trying to quit She denies f/c/n/v/SOB/CP. She was recently started on the 14 mg Nicotine patch per her neurosurgeon, Dr Hernandez due to recent diagnosis for cerebral aneurysm. Medications: Current Outpatient Medications on File Prior to Visit Medication Sig Dispense Refill ??? [DISCONTINUED] nicotine (NICODERM CQ) 14 mg/[address] 1 patch onto the skin daily. 28 patch 0 No current facility-administered medications on file prior to visit. Allergies: Allergies Allergen Reactions ??? Amoxicillin Nausea And Vomiting Passed out ??? Asa Buff (Mag Carb-Al Glyc) [Aspirin, Buffered] Anxiety ??? Codeine Nausea Only ??? Nsaids (Non-Steroidal Anti-Inflammatory Drug) Palpitations Past Medical History: Patient Active Problem List Diagnosis Date Noted ??? Chronic mastitis of right breast 10/07/2015 History reviewed. No pertinent past medical history. Past Surgical History: Past Surgical History: Procedure Laterality Date ??? BREAST CYST EXCISION Right mar 2015 duct removal Social History: Social History Socioeconomic History ??? Marital status: Single Spouse name: Not on file ??? Number of children: Not on file ??? Years of education: Not on file ??? Highest education level: Not on file Occupational History ??? Not on file Social Needs ??? Financial resource strain: Not on file ??? Food insecurity: Worry: Not on file Inability: Not on file ??? Transportation needs: Medical: Not on file Non-medical: Not on file Tobacco Use ??? Smoking status: Current Every Day Smoker Packs/day: 0.75 Years: 22.00 Pack years: 16.50 Types: Cigarettes ??? Smokeless tobacco: Never Used ??? Tobacco comment: smokes 8-10 cig per day Substance and Sexual Activity ??? Alcohol use: Never Frequency: Never ??? Drug use: Never ??? Sexual activity: Not on file Lifestyle ??? Physical activity: Days per week: Not on file Minutes per session: Not on file ??? Stress: Not on file Relationships ??? Social connections: Talks on phone: Not on file Gets together: Not on file Attends anabaptist service: Not on file Active member of club or organization: Not on file Attends meetings of clubs or organizations: Not on file Relationship status: Not on file ??? Intimate partner violence: Fear of current or ex partner: Not on file Emotionally abused: Not on file Physically abused: Not on file Forced sexual activity: Not on file Other Topics Concern ??? Not on file Social History Narrative ??? Not on file REVIEW OF SYSTEMS: General: Denies fatigue, weight loss, chills, night sweats Neuro: Positive for cerebral aneurysm, Denies current seizure disorder or history of seizures, tremor, paresthesias Psychiatric: Positive for anxiety, depression, PTSD, Denies thoughts of suicide in the past, substance abuse, previous hallucinations, history of eating disorders, other psychiatric diagnoses Cardiovascular: Denies arrythmias, chest pain, palpitations Respiratory: Positive for productive cough, shortness of breath, asthma, Denies wheezing, stridor, hemoptysis, recent respiratory infection GI: Denies nausea, vomiting, diarrhea, constipation, abdominal pain, changes in bowel habits or appetite : Denies urgency, frequency, dysuria, polyuria, denies CKD Hematologic: Denies history of DVT, PE, petechiae Endocrine: Denies diabetes mellitus, denies thyroid disease, other endocrine disorder. Musculoskeletal: Denies fractures, arthritis Integument: Denies skin cancer, rash, new or changing skin lesions Physical Exam: BP 115/66 (Patient Position: Sitting) Pulse 78 Temp 36.6 ??C (97.9 ??F) (Temporal) Resp 18 Ht 160 cm (5' 2.99) Wt 100.7 kg (222 lb) SpO2 99% BMI 39.34 kg/m?? General Appearance: Alert, cooperative, no distress, appears stated age, obese Nk: Supple, symmetrical, trachea midline Lungs: Non-labored breathing on RA Heart: Appears well perfused Extremities: Extremities normal, atraumatic, no cyanosis or edema Assessment: NICOTINE DEPENDENCE ? 0 Points 1Points 2 Points 3 Points Score 1.How soon after you wake do you smoke your first cigarette? After 60 minutes 31-60 minutes minutes 6-30 minutes Within 5 minutes 2 2. Do you find it difficult to refrain from smoking in places where it is forbidden [facility] No Yes ? 0 3. Which cigarette would you hate to give up ? All others The first one in the morning ? 0 4. How many cigarette do you smoke a day ? 10 or less 11-20 21-30 30 or more 1 Do you smoke more frequently during the first hour after waking than the rest of the day? No Yes ? 0 6. Do you smoke if you are so ill that you are in bed all day ? No Yes ? 0 ?? Fagerstrom Score: 3 ?? Classification: ?? 0-2 Very low 3-4 Low 5 Moderate 6-7 High 8-10 Very high Holly Mcnally is a 38 y.o. female seen today for smoking cessation counseling. She is currently smoking 0.5 ppd and does wish to quit at this time. I reviewed the physiology of addiction as well as apparent health risks specific for her including her cerebral aneurysm. I discussed the options for treatment including NRT, Zyban and Chantix. I reviewed possible side effects of therapy. I stressed that medication alone is not optimum but used in conjunction with behavioral counseling will add to success for cessation. Behavioral counseling in addition to pharmacotherapy recommendations were given. Behavioral counseling includes deep breathing, drinking water, delaying, weaning down number of cigarettes per day, and identifying small changes that she can make daily. The patient has opted forstarting 21 mg Nicotine patch for continuous replacement and Nicotrol inhaler as needed from cravings. Stage of Change: Precontemplation: Contemplation: X Preparation: Action: Maintenance: CO level: 13 ppm A Tobacco Treatment packet was given and reviewed with the patient which included the 4D's, Set Yourself Free, When Smokers Quit, the Lung Cancer Screening Information Toolkit, and local resources. 60 minutes were spent with this patient in counseling for tobacco cessation. Plan: Quit Date: 10/29/18 1. Start 21 mg Nicotine patch for continuous replacement and Nicotrol inhaler as needed from cravings, discussed how to use and side effects 2. Discussed behavioral change including deep breathing, drinking water, delaying, weaning down number of cigarettes per day, and identifying small changes that she can make daily 3. 30 minutes of exercise daily 4. Call with any questions or concerns 5. Follow up in 5 weeks, call in 2 weeks to follow up via phone Dot Garcia APRN 09/16/18 Thoracic Surgery - Tobacco Cessation [facility] documented in this encounter Plan of Treatment Upcoming Encounters Date Type Department Care Team (Late st Contact Info) Description 01/01/2024 9:10 AM EDT Office Visit Orthopaedics at [place] [phone] Clinic, Dr Alfaro Team None 01/02/2024 11:10 AM EDT Appointment MRI at [address] Dennise Jaimes TIRE SORTER [facility] [place] [address] 01/02/2024 2:00 PM EDT Office Visit Neurosurgery at [place] [phone] Dennise Ja[place] [address] 01/10/2024 11:30 AM EDT Office Visit Endocrinology at [place] [phone] Alma Delia Martinez MD [facility] [place] [address] documented as of this encounter Visit Diagnoses Diagnosis Nicotine dependence, cigarettes, uncomplicated Tobacco abuse counseling Counseling on substance use and abuse documented in this encounter Care Teams Boiler Water Tester Relationship Specialty Start Date End Date Terri Thrasher APRN PCP - General Family Medicine 08/01/18 02/14/21 documented as of this encounter
--- OUTSIDE RECORDS SUMMARY | 2023-12-17 01:44 | XMS_ITS | Encounter Summary ---
Author Organization [facility] [place] [address] Care Team Providers Care State Auditor Name Role Phone Unknown Primary Care Provider Unavailabl e Encounter Details Date Type Department Care Team (Late st Contact Info) Description 09/19/2022 Ancillary Procedure [place] [address] Baron Hobson PA [address] [place], [place] [address] Social History Tobacco Use Types Packs/Day Years [...] 9:10 AM EDT Office [place] [address] Dr Angelina Travis Team None 01/02/2024 11:10 AM [place] [address] Dennise Jaimes APRN [facility] [place] [address] 01/02/2024 2:00 PM EDT Office [place] [address] Dennies Jaimes APRN [facility] [place] [address] 01/10/2024 11:30 AM EDT Office [place] [phone] [facility] [place] [address] documented as of this encounter Procedures Procedure Name Priority Date/Time Associated Diagnosis Comments FILM LIBRARY STORAGE ONLY MR KNEE Routine 09/19/2022 12:00 AM EDT documented in this encounter Results * Film Library- Storage Only MR Knee (09/19/2022 12:00 AM EDT) Narrative [facility] [place] - 02/11/2023 5:05 AM EDT This exam is auto-finalizing. It's purpose is for storage only. Baron STANFORD IMManish FILM LIBRARY O RDERABLES [place], [place] documented in this encounter Visit Diagnoses Not on filedocumented in this encounter Care Teams State Auditor Relationship Specialty Start Date End Date Unknown None PCP - General 02/24/22 01/31/23 documented as of this encounter
--- OUTSIDE RECORDS SUMMARY | 2023-12-17 01:44 | XMS_ITS | Encounter Summary ---
Author Organization [facility] [place] [address] Care Team Providers Care Sweat Box Attendant Name Role Phone UliLashawn NAMRATA Primary Care Provider [phone] Encounter Details Date Type Department Care Team (Late st Contact Info) Description 04/18/2021 Telephone Neurosurgery at [facility] [place] [phone] Adelso Maravilla Social History Tobacco Use Types Packs/Day Years [...] encounter Miscellaneous Notes * Telephone Encounter - Inocencia Tom RN - 04/18/2021 9:30 AM EST Holly Contreras Uli [id number] Caller: Holly Reason for call: c/o pain off and on in temporal area She has a small right ophthalmic aneurysm discovered in 2019 which hasn't changed per her last MRA done in November 2020. I explained that her aneurysm isn't the cause of the pain in the temporal area and that if it ruptures she would describe having the worst headache of her life. She denies any visual changes. Holly expressed concern with having an aneurysm and feels the pain is a tension headache. Plan: Holly knows to seek emergency care with a sudden severe headache and to notify us if she hasany visual changes. * Telephone Encounter - Adelso Maravilla - 04/18/2021 9:22 AM EST Caller: Patient Best number to reach caller: [phone] Reason for call: Patient calling to advise she has pain in her right restorationism (location of aneurysm) that goes down into her jaw and neck. This is the 2nd or 3rd time this has happened. Recent Surgery?: No documented in this encounter Plan of Treatment Upcoming Encounters Date Type Department Care Team (Late st Contact Info) Description 01/01/2024 9:10 AM EDT Office Visit Orthopaedics at [place] [phone] Clinic, Dr Alfaro Team None 01/02/2024 11:10 AM [place] [address] Dennise Jaimes APRN [facility] [place] [address] 01/02/2024 2:00 PM EDT Office Visit Neurosurgery at [place] [phone] [place] [address] 01/10/2024 11:30 AM EDT Office [place] [phone] Alma Delia Martinez MD [facility] [place] [address] documented as of this encounter Visit Diagnoses Not on filedocumented in this encounter Care Teams Sweat Box Attendant Relationship Specialty Start Date End Date Lashawn Mcnally APRN [address] [place] [address] PCP - General Family Medicine 02/15/21 11/10/21 documented as of this encounter
--- OUTSIDE RECORDS SUMMARY | 2023-12-17 01:44 | XMS_ITS | Encounter Summary ---
Author Organization [facility] [place] [address] Care Team Providers Care Story Editor Name Role Phone Terri Thrasher APRN Primary Care Provider + Encounter Details Date Type Department Care Team (Late st Contact Info) Description 09/04/2018 [place] [address] Veronica Michael Social History Tobacco Use Types [...] * Telephone Encounter - Veronica Michael - 09/08/2018 12:23 PM EDT Scheduling pt for 5/[address] Hernandez, I have requested orders and nicotine patch and plavix needs to be called into [facility] in [place]. Can you put in order too for angio? Veronica Soria * Telephone Encounter - Veronica Michael - 09/04/2018 9:13 AM EDT Spoke to pt she would like to proceed with angio and embo, needs plavix called into [facility] as well requesting order from Dr. Hernandez for 5/6. * Telephone Encounter - Jesi Lunsford - 09/04/2018 9:02 AM EDT [facility] [place] * Telephone Encounter - Veronica Michael - 09/04/2018 8:54 AM EDT LM for pt to call back with which pharmacy she uses. Eugenio Hernandez MD Sent: SatSeptember 03, 2018 ??2:49 PM To: Veronica Michael ?? Message Want to refer to smoking cessation (order placed). I can order nicotine patch but I forgot to get her pharmacy. Can you call her and find that out -- and let her know I put in the smoking cessation referral documented in this encounter Plan of Treatment Upcoming Encounters Date Type Department Care Team (Late st Contact Info) Description 01/01/2024 9:10 AM EDT Office Visit Orthopaedics at [place] [phone] Clinic, Dr Alfaro Team None 01/02/2024 11:10 AM EDT Appointment MRI at [place] [phone] Dennise Jaimes [facility] [place] [address] 01/02/2024 2:00 PM EDT Office [place] [phone] [place] [address] 01/10/2024 11:30 AM EDT Office Visit Endocrinology at [address] Alma Delia Martinez MD [facility] [place] [address] documented as of this encounter Visit Diagnoses Not on filedocumented in this encounter Care Teams Story Editor Relationship Specialty Start Date End Date Terri Thrasher APRN PCP - General Family Medicine 08/01/18 02/14/21 documented as of this encounter
--- OUTSIDE RECORDS SUMMARY | 2023-12-17 01:44 | XMS_ITS | Encounter Summary ---
Author Organization [facility] [place] [address] Care Team Providers Care Cigar Packer And Picker Name Role Phone Unknown Primary Care Provider Unavailabl e Encounter Details Date Type Department Care Team (Late st Contact Info) Description 09/29/2022 Ancillary Procedure [place] [address] Baron Hobson PA [address] [place], [place] [address] Social History Tobacco Use Types Packs/Day Years [...] 9:10 AM EDT Office [place] [address] Dr Angelina Travis Team None 01/02/2024 11:10 AM [place] [address] Dennise Jaimes APRN [facility] [place] [address] 01/02/2024 2:00 PM EDT Office [place] [address] Dennise Jaimes APRN [facility] [place] [address] 01/10/2024 11:30 AM EDT Office [place] [address] Alma Delia Martinez MD [facility] [place] [address] documented as of this encounter Procedures Procedure Name Priority Date/Time Associated Diagnosis Comments FILM LIBRARY STORAGE ONLY DX KNEE Routine 09/29/2022 12:00 AM EDT documented in this encounter Results * Film Library- Storage Only DX Knee (09/29/2022 12:00 AM EDT) Narrative [facility] - 02/11/2023 5:05 AM EDT This exam is auto-finalizing. It's purpose is for storage only. Baron ST[facility] IM[facility]ish FILM LIBRARY O RDERABLES [place], [place] documented in this encounter Visit Diagnoses Not on filedocumented in this encounter Care Teams Cigar Packer And Picker Relationship Specialty Start Date End Date Unknown None PCP - General 02/24/22 01/31/23 documented as of this encounter
--- OUTSIDE RECORDS SUMMARY | 2023-12-17 01:44 | XMS_ITS | Encounter Summary ---
[place] [address] Care Team Providers Care Glass Crusher Name Role Phone Lashawn Mcnally APRN Primary Care Provider [phone] Reason for Referral * Diagnostic Test (Routine) - Closed Specialty Diagnoses / Procedures Referred By Jesika t Referred To Contact Radiology Diagnoses Cerebral aneurysm Procedures MRI Angiogram Head wo Contrast (Generic) [place] [address] [place] [address] Referral ID Status Reason Start Date Expiration Date V isits Requested Visits Authorized [id number] Closed Specialty Service Requested 10/11/2021 04/12/2023 1 1 Encounter Details Date Type Department Care Team (Late Contact Info) Description 10/10/2021 Orders [place] [address] Vanessa Frost RN Anterior cerebral artery aneurysm; Cerebral aneurysm Social History Tobacco Use Types Packs/Day Years [...] 9:10 AM EDT Office [place] [address] Clinic, Dr Alfaro Team None 01/02/2024 11:10 AM EDT [place] [address] Dennise Jaimes, RADIOLOGY DIRECTOR [facility] [place] [address] 01/02/2024 2:00 PM EDT Office Visit [place] [address] Dennise Jaimes, RADIOLOGY DIRECTOR [facility] [place] [address] 01/10/2024 11:30 AM EDT Office [place] [address] Alma Delia Martinez MD [facility] [place] [address] documented as of this encounter Results * [...] who have questions please contact the health human services care specialist that requested your imaging first. ? Electronically signed by: Nazario Cedillo MD, [facility] ([phone]), at 11/24/2021 2:42 PM Narrative 11/24/2021 2:42 PM EDT EXAMINATION: MRI ANGIOGRAM HEAD WO CONTRAST (GENERIC) CLINICAL HISTORY: right opthalmic aneurysm TECHNIQUE: MRA of the head performed without contrast. 3-D MIP reconstructions were created. 3-D pvjp-ff-qmcaqz. Axial high-resolution T1 imaging through [facility] was also performed COMPARISON: Previous MRA 11/02/2020 11/11/2019 and 10/17/2018 cerebral angiogram. 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 I have measured it on transverse 3-D hqsv-kv-higacy data images. It measures about 4 mm [...] contrast. 3-D MIP reconstructions were created. 3-D kwtj-yv-puzjfu. Axial high-resolution T1 imaging [facility] was also performed COMPARISON: Previous MRA 11/02/2020 11/11/2019 and 10/17/2018 cerebral angiogram. FINDINGS: Again noted is a small aneurysm at the origin of the right ophthalmicartery. I have measured it on transverse 3-D wwej-eg-yfgyee data images. It measuresabout 4 mm in [...] patients who have questions please contactthe health human services care specialist that requested your imaging first. Electronically signed by: Nazario Cedillo MD, [facility]([phone]), at 11/24/2021 2:42 PM Dennise Jaimes RADIOLOGY DIRECTOR IMG MRI ORDERABLES documented in this encounter Visit Diagnoses Diagnosis Anterior cerebral artery aneurysm Cerebral aneurysm, nonruptured Cerebral aneurysm Cerebral aneurysm, nonruptured Cerebral aneurysm Cerebral aneurysm, nonruptured documented in this encounter Care Teams Glass Crusher Relationship Specialty Start Date End Date Lashawn Mcnally APRN [address] [place] [address] PCP - General Family Medicine 02/15/21 11/10/21 documented as of this encounter
--- OUTSIDE RECORDS SUMMARY | 2023-12-17 01:44 | XMS_ITS | Encounter Summary ---
Author Organization [facility] [place] [address] Care Team Providers Care Maintenance Millwright Name Role Phone Terri Thrasher APRN Primary Care Provider + Encounter Details Date Type Department Care Team (Late st Contact Info) Description 11/02/2020 3:30 PM EDT Office [place] [phone] Eugenio Hernandez MD [facility] DR DIAGNOSTIC [place] [address] Cerebral aneurysm without rupture Social History Tobacco [...] Sign Reading Time Taken Comments Blood Pressure 97/56 11/02/2020 3:25 PM EDT Pulse 53 11/02/2020 3:25 PM EDT Temperature 36.7 ??C (98 ??F) 11/02/2020 3:25 PM EDT Respiratory Rate - - Oxygen Saturation - - Inhaled Oxygen Concentration - - Weight 97.5 kg (215 lb) 11/02/2020 3:25 PM EDT r eported Height 162.6 cm (5' 4) 11/02/2020 3:25 PM EDT r eported Body Mass Index 36.9 11/02/2020 3:25 PM EDT documented in this encounter Progress Notes * Eugenio Hernandez MD - 11/02/2020 3:30 PM EDT Interventional Neuroradiology Clinic Office Note Note Author: Eugenio Hernandez MD Chief Complaint: Cerebral aneurysm History of present illness: Holly Mcnally is a 40 y.o. woman with an unruptured intracranial aneurysm. The aneurysm was discovered in 2018. The last followup imaging study was in 2019 and showed no change. She has been doing well with no interval subarachnoid hemorrhage. She has intermittently hada sensation of painless pulsing behind her right eye. Current Outpatient Medications on File Prior to Visit Medication Sig Dispense Refill ??? busPIRone (Buspar) 5 mg Tablet 1 tablet daily. ??? FLUoxetine (PROzac) 20 mg Capsule 1 capsule daily. ??? Xopenex HFA 45 mcg/actuation HFA Aerosol Inhaler as needed. ??? gabapentin (NEURONTIN) 100 mg Capsule 100 mg AM 200 mg HS (Patient not taking: Reported on 11/11/2019) 90 capsule 12 ??? cyclobenzaprine (FLEXERIL) 5 mg Tablet Take 1 tablet by mouth nightly. 30 tablet 0 ??? nicotine (NICODERM CQ) 21 mg/24 [...] Only ??? Nsaids (Non-Steroidal Anti-Inflammatory Drug) Palpitations No data found. Imaging studies: MR angiography shows that the right ophthalmic aneurysm is unchanged in size and configuration. 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 We had done a catheter angiogram shortly after its discovery and this showed that the ophthalmic artery arises from the aneurysm base. The aneurysm is very broad- necked. Treatment with flow-diverting stent is possible with a roughly 90% chance of success and 3% chance of complication. However the natural history of a stable small aneurysm at this site is also good with a roughly 0.4% risk of rupture every 5 years. We discussed these considerations at length. Understandably she has worries over both options. For now we will continue to pursue surveillance but she will call if her situation or thoughts change. Plan: Next follow-up MRA in 1 year documented in this encounter Plan of Treatment Upcoming Encounters Date Type Department Care Team (Late st Contact Info) Description 01/01/2024 9:10 AM EDT Office [place] [address] Clinic, Dr Alfaro Team None 01/02/2024 11:10 AM [place] [address] [place] [address] 01/02/2024 2:00 PM EDT Office [place] [address] [place] [address] 01/10/2024 11:30 AM EDT Office Visit Endocrinology at [place] [phone] Alma Delia Martinez MD [facility] [place] [address] documented as of this encounter Visit Diagnoses Diagnosis Cerebral aneurysm without rupture Cerebral aneurysm, nonruptured documented in this encounter Care Teams Maintenance Millwright Relationship Specialty Start Date End Date Terri Thrasher APRN PCP - General Family Medicine 08/01/18 02/14/21 documented as of this encounter
--- OUTSIDE RECORDS SUMMARY | 2023-12-17 01:44 | XMS_ITS | Encounter Summary ---
Author Organization [facility] [place] [address] Care Team Providers Care Executive Services Administrator Name Role Phone Terri Thrasher NAMRATA Primary Care Provider + Encounter Details Date Type Department Care Team (Late st Contact Info) Description 09/24/2018 12:05 AM EDT Ancillary Procedure [place] [address] Huang Nicole MD [facility] [place] [address] Social History Tobacco Use Types Packs/Day Years [...] 9:10 AM EDT Office [place] [address] Clinic, Dr Alfaro Team None 01/02/2024 11:10 AM ED[place] [address] [place] [address] 01/02/2024 2:00 PM EDT Office [place] [address] Dennise Jaimes APRN [facility] [place] [address] 01/10/2024 11:30 AM EDT Office [place] [phone] Alma Delia Martinez MD [facility] [place] [address] documented as of this encounter Procedures Procedure Name Priority Date/Time Associated Diagnosis Comments FILM LIBRARY STORAGE ONLY MR HEAD Routine 09/24/2018 12:05 AM EDT documented in this encounter Results * Film Library- Storage Only MR Head (09/24/2018 12:05 AM EDT) Narrative [facility] - 11/07/2018 10:29 AM EDT This exam is auto-finalizing. It's purpose is for storage only. Huang Nicole MD IMG FILM LIBRARY ORD ERABLES [place], [place] documented in this encounter Visit Diagnoses Not on filedocumented in this encounter Care Teams Executive Services Administrator Relationship Specialty Start Date End Date Terri Thrasher APRN PCP - General Family Medicine 08/01/18 02/14/21 documented as of this encounter
--- OUTSIDE RECORDS SUMMARY | 2023-12-17 01:44 | XMS_ITS | Encounter Summary ---
[place] [address] Care Team Providers Care Pad Making Machine Operator Name Role Phone Terri Thrasher NAMRATA Primary Care Provider + Reason for Referral * Diagnostic Test (Routine) - Closed Specialty Diagnoses / Procedures Referred By Jesika maddox Referred To Contact Radiology Diagnoses Cerebral aneurysm without rupture Procedures IR Arteriogram Cerebral [facility] [address] [place] [address] [facility] [place] [address] Referral ID Status Reason Start Date Expiration Date V isits Requested Visits Authorized [id number] Closed Specialty Service Requested 09/08/2018 09/08/2019 1 1 Encounter Details Date Type Department Care Team (Late st Contact Info) Description 09/08/2018 Orders [place] [address] Mallory Delgado RN Cerebral aneurysm [...] AM EDT Office Visit [place] [address] Clinic, Dr Alfaro Team None 01/02/2024 11:10 AM EDT Appointment MRI at [place] [phone] Dennise Jaimes, SILVICULTURE PROFESSOR [facility] [place] [place] [address] 01/02/2024 2:00 PM EDT Office Visit Neurosurgery at [place] [phone] Dennise Jaimes, [place] [address] 01/10/2024 11:30 AM EDT Office Visit [place] [address] Alma Delia Martinez MD [facility] [place] [address] documented as of this encounter Results * IR Arteriogram Cerebral (10/07/2018 9:08 AM EDT) Anatomical Region Laterality Modality X-Ray Angiograph y Impressions 10/21/2018 5:57 PM EDT Small ??broad-necked aneurysm arising at the ophthalmic origin, with the ophthalmic artery arising from the dome.. Thank you for letting us participate in the care of this patient. For questions regarding this report, please contact the number below. ? Narrative 10/21/2018 5:57 PM EDT EXAMINATION: IR ARTERIOGRAM CEREBRAL CLINICAL HISTORY: unruptured cerebral aneurysm; Exam/Procedure requested: Dx. angiogram TECHNIQUE: OPERATORS: Dr. Chriss Munoz, Dr. Aman Mcleod, Dr. Eugenio Hernandez. Dr. Hernandez present for the entire procedure. PROCEDURE: 1. Cerebral angiogram. 2. Mynx closure of femoral access ANESTHESIA: Moderate sedation performed using split doses of Versed and fentanyl during the continuous monitoring of patient vital signs by angiography nursing. I was present during the intraservice time as documented by the IR Nurse. EBL: <20 ml CONTRAST: Approximately 40 mL Visipaque-320. RADIATION EXPOSURE: A-plane 155 mGy; B plane 17 mGy. MATERIALS: Micropuncture set, 0.035 125 cm Glidewire, 0.035 inch J-wire, 5 [place] sheath, 5Fr vert catheter, Mynx vascular closure device. TECHNIQUE: The patient was brought to the angiography suite. The right groin was sterilely prepped and draped. Using micropuncture set, the femoral artery was accessed and the 5 [place] pinnacle sheath was placed, and double flushed. 5 Burund[place] vert catheter was positioned in the descending aorta over the 3 J-wire, the wire was removed, and the catheter connected to continuous heparinized saline infusion. Catheter was advanced over the aortic arch using the Glidewire, and the right internal carotid artery was selected, biplane and rotational angiography performed. Roadmap angiogram of the right common femoral artery was then performed through the sheath. The sheath was removed with successful deployment of Mynx vascular closure device. FINDINGS: RIGHT INTERNAL CAROTID ARTERY INJECTION: Intracranial internal carotid artery is normal in caliber. Arising at the origin of the ophthalmic artery is a 3 mm aneurysm. This aneurysm has a very broad base with the ophthalmic artery origin arising from the dome of the aneurysm. MCA, JERED, and branches are normal. Common femoral artery roadmap injection: Visualized common femoral artery is normal in caliber. Puncture is above the bifurcation. Procedure Note Eugenio Hernandez MD - 10/21/2018 EXAMINATION: IR ARTERIOGRAM CEREBRAL CLINICAL HISTORY: unruptured cerebral aneurysm; Exam/Procedure requested:Dx. angiogram TECHNIQUE: OPERATORS: Dr. Chriss Munoz, Dr. Aman Mcleod, Dr. Eugenio Hernandez.Dr. Hernandez present for the entire procedure. PROCEDURE: 1. Cerebral angiogram. 2. Mynx closure of femoral access ANESTHESIA: Moderate sedation performed using split doses of Versed andfentanyl during the continuous monitoring of patient vital signs by angiographynursing. I was present during the intraservice time as documented by the IR Nurse. EBL: <20 ml CONTRAST: Approximately 40 mL Visipaque-320. RADIATION EXPOSURE: A-plane 155 mGy; B plane 17 mGy. MATERIALS: Micropuncture set, 0.035 125 cm Glidewire, 0.035 inch J-wire,5 [place] sheath, 5Fr vert catheter, Mynx vascular closure device. TECHNIQUE: The patient was brought to the angiography suite. The rightgroin was sterilely prepped and draped. Using micropuncture set, the femoral arterywas accessed and the 5 Burundian pinnacle sheath was placed, and double flushed.5 Burundian vert catheter was positioned in the descending aorta over the 3J-wire, the wire was removed, and the catheter connected to continuousheparinized saline infusion. Catheter was advanced over the aortic arch using theGlidewire, and the right internal carotid artery was selected, biplane androtational angiography performed. Roadmap angiogram of the right common femoralartery was then performed through the sheath. The sheath was removed withsuccessful deployment of Mynx vascular closure device. FINDINGS: RIGHT INTERNAL CAROTID ARTERY INJECTION: Intracranial internal carotidartery is normal in caliber. Arising at the origin of the ophthalmic artery is a 3mm aneurysm. This aneurysm has a very broad base with the ophthalmic arteryorigin arising from the dome of the aneurysm. MCA, JERED, and branches are normal. Common femoral artery roadmap injection: Visualized common femoral arteryis normal in caliber. Puncture is above the bifurcation. IMPRESSION Small broad-necked aneurysm arising at the ophthalmic origin, with the ophthalmic artery arising from the dome.. Thank you for letting us participate in the care of this patient. Forquestions regarding this report, please contact the number below. Eugenio Hernandez MD IMG IR ORDERABLES documented in this encounter Visit Diagnoses Diagnosis Cerebral aneurysm without rupture Cerebral aneurysm, nonruptured Pre-op testing Preoperative examination, unspecified Facial droop Facial weakness Cerebral aneurysm without rupture Cerebral aneurysm, nonruptured documented in this encounter Care Teams Pad Making Machine Operator Relationship Specialty Start Date End Date Terri Thrasher, SILVICULTURE PROFESSOR PCP - General Family Medicine 08/01/18 02/14/21 documented as of this encounter
--- OUTSIDE RECORDS SUMMARY | 2023-12-17 01:44 | XMS_ITS | Encounter Summary ---
Author Organization [facility] [place] [address] Care Team Providers Care Carpet Floor Layer Apprentice Name Role Phone Terri Thrasher NAMRATA Primary Care Provider + Encounter Details Date Type Department Care Team (Late st Contact Info) Description 09/08/2018 Telephone Neurosurgery at [facility] [place] [address] Jenny Ferrara Social History Tobacco Use Types Packs/Day Years [...] * Telephone Encounter - Mallory Delgado - 09/08/2018 12:43 PM EDT I called Holly back. She states Saturday she began to develop a headache w/ nausea. She has recently cut back on her caffeine consumption. She was drinking 3 cups of coffee in the AM and an afternoon large cup of coffees in the afternoon. She cut back to 2 cups in the AM and a small cup in the afternoon. We recommended aslower taper off of caffeine and see how she does. Also recommended increasing her fluid intake (h20) and adding Tylenol if necessary. She is trying to decide if she should proceed with just angio or with coiling and will speak with Dr. Hernandez about this. I have asked Dr. Hernandez what strength nicotine patch he would like ordered for Holly. * Telephone Encounter - Jenny Ferrara - 09/08/2018 11:26 AM EDT Caller: Patient If not the patient: Name of caller: Relationship to patient: Personal Rep on file?: Best time to reach caller: Not between 12:30 and 1pm - picking up son from school Best number to reach caller: [phone] Reason for call: Pt called to inquire if should wait until Angio is complete prior to scheduling coiling. Also, pt experiencing headaches and nausea and light headedness = please call and discuss. Recent Surgery?: no If before 4:00 pm: [...] 9:10 AM EDT Office Visit Orthopaedics at [address] Clinic, Dr Alfaro Team None 01/02/2024 11:10 AM EDT Appointment MRI at [place] [phone] Dennise Jaimes TRAVEL CONSULTANT [facility] [place] [address] 01/02/2024 2:00 PM EDT Office [place] [address] Dennise Jaimes [place] [address] 01/10/2024 11:30 AM EDT Office Visit Endocrinology at [place] [phone] Alma Delia Martinez MD [facility] [place] [address] documented as of this encounter Visit Diagnoses Not on filedocumented in this encounter Care Teams Carpet Floor Layer Apprentice Relationship Specialty Start Date End Date Terri Thrasher APRN PCP - General Family Medicine 08/01/18 02/14/21 documented as of this encounter
--- OUTSIDE RECORDS SUMMARY | 2023-12-17 01:44 | XMS_ITS | Encounter Summary ---
[place] [address] Care Team Providers Care Landscape Manager Name Role Phone Claudia vance Nery OTT Primary Care Provider [phone] Reason for Visit * Diagnostic Test (Routine) - Closed Specialty Diagnoses / Procedures Referred By Jesika maddox Referred To Contact Radiology Diagnoses Cerebral aneurysm Procedures MRI Angiogram Head wo Contrast (Generic) [place] [address] [place] [address] Referral ID Status Reason Start Date Expiration Date V isits Requested Visits Authorized [id number] Closed Specialty Service Requested 10/11/2021 04/12/2023 1 1 Encounter Details Date Type Department Care Team (Latest Contact Info) Description 11/24/2021 9:11 AM EDT - 11/24/2021 11:59 PM EDT Hospital [place] [address] [place] [address] Discharge Disposition: Home Social History Tobacco Use [...] 9:10 AM EDT Office [place] [address] Clinic, Dr Alfaro Team None 01/02/2024 11:10 AM EDT Appointment MRI at [address] [place] [address] 01/02/2024 2:00 PM EDT Office [place] [address] [place] [address] 01/10/2024 11:30 AM EDT Office Visit Endocrinology at [place] [phone] Alma Delia Martinez MD [facility] [place] [address] documented as of this encounter Procedures Procedure [...] who have questions please contact the health customer care representative that requested your imaging first. ? Electronically signed by: Nazario Cedillo MD, [facility] ([phone]), at 11/24/2021 2:42 PM Narrative 11/24/2021 2:42 PM EDT EXAMINATION: MRI ANGIOGRAM HEAD WO CONTRAST (GENERIC) CLINICAL HISTORY: right opthalmic aneurysm TECHNIQUE: MRA of the head performed without contrast. 3-D MIP reconstructions were created. 3-D [id number]-pctfui. Axial high-resolution T1 imaging through the [place] [facility] [place] was also performed COMPARISON: Previous MRA 11/02/2020 11/11/2019 and 10/17/2018 cerebral angiogram. 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 I have measured it on transverse 3-D [id number] data images. It measures about 4 mm [...] contrast. 3-D MIP reconstructions were created. 3-D chtt-ee-htaped. Axial high-resolution T1 imaging through [facility] [place] was also performed COMPARISON: Previous MRA 11/02/2020 11/11/2019 and 10/17/2018 cerebral angiogram. FINDINGS: Again noted is a small aneurysm at the origin of the right ophthalmicartery. I have measured it on transverse 3-D [id number] data images. It measuresabout 4 mm in [...] patients who have questions please contactthe health customer care representative that requested your imaging first. Electronically signed by: Nazario Cedillo MD, [facility]([phone]), at 11/24/2021 2:42 PM Dennise Jaimes APRN [facility] MRI ORDERABLES documented in this encounter Visit Diagnoses Not on filedocumented in this encounter Care Teams Landscape Manager Relationship Specialty Start Date End Date Claudia Belle APRN [address] [place] [address] PCP - General Family Medicine 11/11/21 02/23/22 documented as of this encounter
--- OUTSIDE RECORDS SUMMARY | 2023-12-17 01:44 | XMS_ITS | Encounter Summary ---
Author Organization Formerly [facility] Address [facility] [place] [address] Care Team Providers Care Wine Steward Name Role Phone Terri Thrasher NAMRATA Primary Care Provider + Reason for Referral * Chiropractic (Routine) - Specialty Diagnoses / Procedures Referred By Jesika maddox Referred To Contact Diagnoses Cervicogenic headache Huang Nicole MD [facility] [place] [address] Referral ID Status Reason Start Date Expiration Date V isits Requested Visits Authorized [id number] Consult, Test & Treat 10/28/2018 04/26/2019 1 1 Reason for Visit * Consultation (Routine) - Closed Specialty Diagnoses / Procedures Referred By Jesika t Referred To Contact Neurology Mil Darby MD [facility] [place] [address] [facility] Neurology [address] [place] [phone] Referral ID Status Reason Start Date Expiration Date V isits Requested Visits Authorized [id number] Closed Consult, Test & Treat 08/12/2018 08/12/2019 1 1 Encounter Details Date Type Department Care Team (Late st Contact Info) Description 10/28/2018 9:45 AM EDT Office [place] [address] Huang Nicole MD [facility] [place] [address] Cervicogenic headache; Gillette palsy; Brain aneurysm Social History Tobacco Use Types Packs/Day [...] as of this encounter Progress Notes * Huang Nicole MD - 10/28/2018 9:45 AM EDT NEUROLOGY CLINIC Formerly [facility] [place] [address] 10/28/2018 Patient name: Holly Mcnally Date of : 1980 Referring provider: Mil Darby MD [facility] [place] [address] HISTORY ?? REASON FOR REFERRAL/CHIEF COMPLAINT: Headache HISTORY OF PRESENTING COMPLAINTS: She was seen in ED in August with headaches and dizziness. She had a CTA done which showed an ICA aneurysm. She saw Dr. Hernandez, hand angiogram done and was found to have 3 mm aneurysm and is planned viraj monitoring. She had a Gillette's palsy in last week on September.She had MRI / CT Scan and ultrasound at [facility] . She feels test results were normal. She still has some symptoms. Her muscles on R side of face still feels painful and spastic. She feels a black dot in the field of her vision on right eye. It resolves when right eye is closed. Her vision is blurry. She still has headaches. Its mostly in the frontal region. She has history of migraines in the past since school years. She gets nauseous and tired during hermigraine episodes. Headaches are happening almost on a daily basis at this time. Takes tylenol or ibuprofen for headaches. She feels pulsing in her eye. PMHx: Past Medical History: Diagnosis Date ??? Anxiety ??? Asthma ??? Bronchitis ??? Cerebral aneurysm ??? Depression ??? Headache ??? PTSD (post-traumatic stress disorder) Migraines. CTS Past Surgical History: Procedure Laterality Date ??? BREAST CYST EXCISION Right mar 2015 duct removal ??? CHOLECYSTECTOMY ??? DILATION AND CURETTAGE OF UTERUS ??? HERNIA REPAIR ??? IR ARTERIOGRAM CEREBRAL 10/07/2018 IR Arteriogram Cerebral 10/07/[address] [facility] INTERVENTIONL RAD Family History: Family History Problem Relation Age of Onset ??? Cancer Maternal Aunt ??? Cancer Maternal Grandmother ??? Osteoporosis Neg Hx No family history of neurologic problems. Father had PCKD Social History: reports that she has been smoking cigarettes. She has a 16.50 pack-year smoking history. She has never used smokeless tobacco. She reports that she does not drink alcohol or use drugs. No flowsheet data found. 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 Smokes 8 cigarettes a day. No alcohol. Lives with 2 children and Review of systems: Constitutional: No fever/chills, fatigue+ Eyes: +vision problems ENT: No nasal symptoms. Ringing in ears + Cardiovascular: No chest pain or palpitations Respiratory: No cough or shortness of breath Gastrointestinal: No nausea, vomiting, diarrhea or constipation Genitourinary: No dysuria, no incontinence Hematologic: No bleeding or bruising Endocrine: No heat or cold intolerance Musculoskeletal: + Joint pains Integumentary: No skin rashes. Neurologic: See HPI Psychiatric: No depression, normal sleep Allergy/ Immunology: Allergy as documented. [x] Review of systems otherwise negative Medications: Current Outpatient Medications on File Prior to Visit Medication Sig Dispense Refill ??? nicotine (NICODERM CQ) 21 mg/24 hr [address] 1 patch onto the skin daily. See package instructions 28 patch 0 ??? nicotine (NICOTROL) 10 mg Cartridge Inhale 1 puff into the lungs as needed for Smoking cessation (No more than 16 cartridges per day). 1 each 2 No current facility-administered medications on file prior to visit. Allergies: Allergies Allergen Reactions ??? Amoxicillin Nausea And Vomiting Passed out ??? Asa Buff (Mag Carb-Al Glyc) [Aspirin, Buffered] Anxiety ??? Codeine Nausea Only ??? Nsaids (Non-Steroidal Anti-Inflammatory Drug) Palpitations EXAMINATION ?? Vitals: There were no vitals taken for this visit. General Examination: Appearance: alert, no distress ENT, Throat: oral mucosa moist. Cardiovascular: Rate regular, S1S2 normal, no murmur Respiratory: Symmetric expansion, lungs clear to auscultation Gastrointestinal: Abdomen soft, nontender Extremity: no edema Skin: No rashes noted Neurological Examination o Higher functions: - Speech: fluent, no aphasia/dysarthria or dysphonia - Alert and oriented. o Cranial Nerves - II-XII: Pupils bilaterally equal and symmetric conjugate gaze, reacting to light. No ptosis/nystagmus. Vision normal. No field deficits. EOMI. Resolving Igllette's palsy R . No weakness of jaw/uvula/ palate - Fundus: Normal vessels and disc margins. o Reflexes - +2 Bilaterally biceps, BR and knee o Motor and Coordination - Normal tone, bulk strength and coordination of right and left sided muscles o Sensory - Normal sensations bilaterally. o Skull and Spine/ Gait - Neck paraspinal tenderness and occipital neuralgia worse on R side. - Cervicogenic dizziness precipitated - Normal gait - Tandem: Minimal imbalance. ?? LABS AND IMAGING ?? Labs GENERAL THYROID: No results found for: TSH, Q7JAHFF, FREET4, TT4, THYROIDAB, THGAB FolateNo results found for: SFOLATE ESRNo results found for: SEDRATE CRPNo results found for: CRP B12No results found for: LDTITGDZ32 CKNo results found for: CK Angiotensin ConvertaseNo results found for: YESENIA INFECTIONS HIVNo results found for: HIV12 HEPATITIS PANELNo results found for: HAV, HEPBSAB, HBEAG, HEPBSAG, HEPCAB AUTOIMMUNE PANEL ANANo results found for: UZIEL DSDNANo results found for: DNAABDS Jef results found for: DAHLIA C3,C4, COMPLEMENTSNo results found for: C3, C4 CARDIOLIPIN, LUPUSNo components found for: CARDIOLIPINANTIBODY, LUPUS, ANTICOAGULANT CELIAC: TTG, GLIADIN, ENDOMYSIALNo components found for: TTRANSGLUTAMINASEANTIBODY ANTIGLIADINANTIBODY VASCULITIS: C,P,ANCA, MPONo results found for: PANCA, CANCA, MYELOP, PR3AB NMONo components found for: NEUROMYELITISOPTICAANTIBODY MG: ACHRAB, Anit MuSK, LEMSNo components found for: ACETYLCHOLINERECEPTORABBINDING, LEMSANTIBODY, ANTISKELETALMUSCLEANTIBODY CRYOGLOBULINSNo components found for: CRYOGLOBULINS METABOLIC CERULOPLASMINNo components found for: CERULOPLASMIN BETA 2 MICROGLOBULINNo results found for: B2MG No results found for: TPROTEINPEP, ALBELECT, ALPHA1, ALPHA2, GAMMAGLOB, APB1 CORTISOLNo results found for: CORTISOL LDH No results found for: LDH NUTRITIONAL VITAMIN DNo results found for: 25OHVITD PRE ALBUMINNo results found for: PREALBUMIN FERRITINNo results found for: IRON COPPERNo results found for: COPPER PERIPHERAL NEUROPATHY HEMOGLOBIN A1CNo results found for: HA1C LIPID PROFILENo results found for: CHLPL, HDL, CHOLHDL, TRIG, LDLCHOL, LDLDIRECT JODIE 65No results found for: PPT18HT ANTI GM1,ANTI SGPG, MAG@RESUFAST (MAGAUTOAB,SGPG,MAGWB,GM1AB)@ HEAVY METAL SCREENNo results found for: LEAD, ARSENIC METHYLMLONIC ACIDNo results found for: METHYLMAL IgA, IGG No results found for: IGA, IGG CSF PANEL No results found for: NUCCELMANCSF, RBCCSFCT, SEGSCSF, LYMPHSCSF, NUMCELLCTCSF, CSFGLUC, CSFPROTEIN, XANTHOCHROM, MCSBFTYPE, MCS, CSFIGGINDEX, LYMEAB, VDRLSCRNCSF, OLIGOCSF, HSVDNA, ARBOWNILECSF, ENTVPCR, VZVPCR PARANEOPLASTIC PANEL No results found for: PARANEOINTRP, ANNA1, ANNA2, ANNA3, AGNA1, PCA1, PCA2, PCATYPETR, AMPHIPHYSIN,ROYW6TBI, STRIATMSCLAB, CACHABPQTYPE, CACHABNTYPE, ACHRBINDAB, NEUROKCHAB, NMDARECEPTOR, [id number] THROMBOSIS HOMEOCYSTEINENo results found for: HOMOCYSTEINE THROMBOSIS PANELNo results found for: ACAIGM, [id number] FACTOR V LEIDEN No components found for: FACTORVLEIDEN PROTEIN C,SNo components found for: PROTEINC, PROTEINS ANTITHROMBIN IIINo components found for: ANTITHROMBINIII Miscellaneous Send outsNo results found for: MISCSENDOUT, MISCMAYO IR Angiogram: 3 mm R ICA aneurysm CT Head: Unremarkable. ASSESSMENT, PLAN & RECOMMENDATIONS ?? ASSESSMENT: 38 Y F with history of migraines, depression, 3mm cerebral aneurysm referred for evaluation of headaches and dizziness. 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 She has vision problem in R eye. On evaluation she has resolving R facial nerve palsy with Gillette's phenomenon. She has R occipital neuralgia and neck paraspinal muscle tenderness. Prior CT head unremarkable. IR angiogram verified 3 mm aneurysm. We do not have reports of recent MRI and othertesting done at [facility]. IMPRESSION: ?? Cervicogenic headaches and migraines ?? R Gillette's Palsy ?? Cerebral aneurysm. PLAN/RECOMMENDATIONS: Headaches and dizziness seems cervicogenic in nature She was given referral for chiropractic therapy of neck. Flexeril HS, Gabapentin 100 AM/ 200 mg HS ordered to help with the symptoms. Neck massages, local applicants, exercises, warmth etc advised. Cerebral aneurysm planned to be followed up through interventional radiology Will try and obtain recent imaging and labs from [facility]. Will consider additional testing as needed based on it. Follow up in 3 months. Huang Nicole MD Department of Neurology [facility] documented in this encounter Plan of Treatment Upcoming Encounters Date Type Department Care Team (Late st Contact Info) Description 01/01/2024 9:10 AM EDT Office [place] [address] Clinic, Dr Alfaro Team None 01/02/2024 11:10 AM EDT [place] [address] Dennise Jaimes APRN [facility] [place] [address] 01/02/2024 2:00 PM EDT Office [place] [address] Dennise Jaimes APRN [facility] [place] [address] 01/10/2024 11:30 AM EDT Office Visit [place] [address] Alma Delia Martinez MD [facility] [place] [address] Scheduled Referrals Name Type Priority Associated Diagnoses Order Schedule Referral to Chiropractic Outpatient Referral Routine Cervicogenic headache Ordered: 10/28/2018 documented as of this encounter Visit Diagnoses Diagnosis Cervicogenic headache Headache Gillette palsy Gillette's palsy Brain aneurysm Cerebral aneurysm, nonruptured documented in this encounter Care Teams Wine Steward Relationship Specialty Start Date End Date Terri Thrasher, MONOMER RECOVERY SUPERVISOR PCP - General Family Medicine 08/01/18 02/14/21 documented as of this encounter
--- OUTSIDE RECORDS SUMMARY | 2023-12-17 01:44 | XMS_ITS | Encounter Summary ---
Author Organization [facility] [place] [address] Care Team Providers Care Concrete Stone Finishing Supervisor Name Role Phone Terri Thrasher COMMERCIAL HVAC TECHNICIAN Primary Care Provider + Encounter Details Date Type Department Care Team (Late st Contact Info) Description 05/22/2019 [place] [address] Jenny Ferrara Social History Tobacco Use Types [...] encounter Miscellaneous Notes * Telephone Encounter - Kasey Mark - 08/18/2019 1:43 PM EDT Scheduled patient and mailed reminder card. * Telephone Encounter - Kasey Mark - 08/17/2019 11:21 AM EDT Spoke with patient and reviewed new safety questions. Ok to schedule in October and call with details. RN, Order expires prior to expected date of appt (10/10/19), please change. * Telephone Encounter - Jenny Ferrara - 05/22/2019 10:25 AM EST Pt called to schedule = updated safety ?s ~~~~~~~~~~~~~~~~~~~~~~~~~~~~~~~~ Wed @ 11 or 11:30am start time for MRI Scheduled when available - call pt to confirm prior to sending appt card Postpone until 07/04/19 - CTE schedule in eDH documented in this encounter Plan of Treatment Upcoming Encounters Date Type Department Care Team (Late st Contact Info) Description 01/01/2024 9:10 AM EDT Office Visit Orthopaedics at [place] [address] Clinic, [address] Alfaro Team None 01/02/2024 11:10 AM EDT Appointment MRI at [place] [address] Dennise Jaimes [employer] [place] [address] 01/02/2024 2:00 PM EDT Office Visit Neurosurgery at [place] [address] [place] [address] 01/10/2024 11:30 AM EDT Office Visit Endocrinology at [place] [phone] Alma Delia Martinez MD [facility] DR ENDOCRINOLOGY [place] [address] documented as of this encounter Visit Diagnoses Not on filedocumented in this encounter Care Teams Concrete Stone Finishing Supervisor Relationship Specialty Start Date End Date Terri Thrasher APRN PCP - General Family Medicine 08/01/18 02/14/21 documented as of this encounter
--- OUTSIDE RECORDS SUMMARY | 2023-12-17 01:44 | XMS_ITS | Encounter Summary ---
[place] [address] Care Team Providers Care Assembler Metal Building Name Role Phone Claudia Belle NAMRATA Primary Care Provider [phone] Encounter Details Date Type Department Care Team (Late st Contact Info) Description 11/24/2021 Telephone [place] [address] Dennise Jaimes APRN [facility] [place] [address] Social History Tobacco Use Types Packs/Day Years [...] * Telephone Encounter - Veronica Michael - 11/24/2021 3:40 PM EDT ----- Message from Dennise Jaimes APRN sent at 11/24/2021 3:28 PM EDT ----- MRA head 1 year documented in this encounter Plan of Treatment Upcoming Encounters Date Type Department Care Team (Late st Contact Info) Description 01/01/2024 9:10 AM EDT Office [place] [address] Clinic, Dr Alfaro Team None 01/02/2024 11:10 AM EDT Appointment MRI at [place] [address] Dennise Jaimes, OYSTER PICKER [facility] [place] [address] 01/02/2024 2:00 PM EDT Office Visit Neurosurgery at [place] [address] Dennise Jaimes, [place] [address] 01/10/2024 11:30 AM EDT Office [place] [address] Alma Delia Martinez MD [facility] [place] [address] documented as of this encounter Visit Diagnoses Not on filedocumented in this encounter Care Teams Assembler Metal Building Relationship Specialty Start Date End Date Claudia Belle APRN [address] [place] [address] PCP - General Family Medicine 11/11/21 02/23/22 documented as of this encounter
--- OUTSIDE RECORDS SUMMARY | 2023-12-17 01:44 | XMS_ITS | Encounter Summary ---
Author Organization [facility] Address [facility] [place] [address] Care Team Providers Care Cook Pressure Name Role Phone Terri Thrasher NAMRATA Primary Care Provider + Encounter Details Date Type Department Care Team (Late st Contact Info) Description 01/22/2021 Notes Only Neurology at [facility] [address] [place] [address] Timmy Altman MD [facility] [place] [address] Social History Tobacco Use Types Packs/Day Years [...] as of this encounter Progress Notes * Timmy Altman MD - 01/22/2021 6:41 PM EDT [facility] Neurology Skin Grader Attending Neurologist note This note is to document a telephone conversation I had with: Dr. Jillian Otto From [facility] On Holly Mcnally 40 y.o. 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 Previously seen in consultation by Dr. Eugenio Hernandez. Most recently seen November 11, 2019 with plan for no intervention and repeat MRA in 1 year. 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 The pain lasted for approximately 5 seconds then abated. It did recur. Subsequently the patient had some low-grade pressure in her head. There was some associated nausea and dizziness. At one point there was tingling in the right face. Routine blood work was normal. ESR and CRP were normal. Patient was hemodynamically stable. Neurological exam was nonfocal. Facial sensation was intact. CT of the head did not reveal any acute changes. 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 There was no mention of the aneurysm on the report. The images nor report were not available for my review. The plan by the referring provider was for discharge home and for patient to contact her provider at [facility], Dr. Eugenio Hernandez, tomorrow. Question(s) from referring provider: Any other recommendations? Impressions: Based on description this is unlikely a thunderclap headache. It is reassuring that the CT and CTA head and neck did not reveal any acute abnormalities. I do not have an answer as to why the aneurysmwas not seen on the most recent CTA study. As previously commented on by Dr. Hernandez the abnormality may represent an infundibulum thus not felt to be an abnormality by the current reading radiologist.I also could not exclude a thrombosed aneurysm. Recommendations: I would not have any further recommendations at the present time. I agree with the plan as outlinedby the referring provider. I will copy the patient's provider here at [facility] with this note. The referring physician was satisfied with the impressions and recommendations. Please note that I have not seen, examined, or evaluated this patient in person or via a video system. Therefore, my impressions and recommendations are based solely on the information received from the referring provider. Jax Altman MD Department of Neurology [facility] documented in this encounter Plan of Treatment Upcoming Encounters Date Type Department Care Team (Late st Contact Info) Description 01/01/2024 9:10 AM EDT Office Visit [place] [address] Clinic, Dr Alfaro Team None 01/02/2024 11:10 AM EDT Appointment MRI at [place] [address] Dennise Jaimes CORPORATE VP ADVERTISING & [employer] [facility] [place] [address] 01/02/2024 2:00 PM EDT Office Visit Neurosurgery at [place] [address] Dennise Jaimes, [place] [address] 01/10/2024 11:30 AM EDT Office Visit Endocrinology at [place] [phone] Alma Delia Martinez MD [facility] [place] [address] documented as of this encounter Visit Diagnoses Not on filedocumented in this encounter Care Teams Cook Pressure Relationship Specialty Start Date End Date Terri Thrasher APRN PCP - General Family Medicine 08/01/18 02/14/21 documented as of this encounter
--- OUTSIDE RECORDS SUMMARY | 2023-12-17 01:44 | XMS_ITS | Encounter Summary ---
Author Organization [facility] [place] [address] Care Team Providers Care Architectural Job Captain Name Role Phone Lashawn Mcnally NAMRATA Primary Care Provider [phone] Encounter Details Date Type Department Care Team (Late st Contact Info) Description 10/10/2021 Telephone Neurosurgery at [facility] [place] [address] Delma Jaimes Social History Tobacco Use Types Packs/Day Years [...] encounter Miscellaneous Notes * Telephone Encounter - Frank Lou - 10/13/2021 4:18 PM EDT LM for pt to confirm appt details MRA Head scheduled on 11/24/2021 to coordinate with 1 yr OV with ALP Mailed appt card Closing encounter * Telephone Encounter - Delma Jaimes - 10/11/2021 11:54 AM EDT Pt returning call to schedule 1yr ov, Cerebral aneurysm without rupture, MRA prior. Screening questions answered, Email sent to to schedule MRA per current protocol. Please verify if a PA is needed then schedule 1yr TOV/OV w/ALP with an early arrival time 09:30am and no appts on , , 31 of October and , , , 21 of November. * Telephone Encounter - Delma Jaimes - 10/10/2021 8:26 AM EDT Caller: Patient Best time to reach caller: Any Best number to reach caller: [phone] Reason for call: Pt calling to schedule appt w/Dr. Hernandez. States that provider requests yearly monitoring. Please advise scheduling instructions. Recent Surgery?: No If before 4:00 pm: Inform caller that the typical expectation for a call back is within 1-2 hours. documented in this encounter Plan of Treatment Upcoming Encounters Date Type Department Care Team (Late st Contact Info) Description 01/01/2024 9:10 AM EDT Office Visit Orthopaedics at [place] [phone] Clinic, Dr Alfaro Team None 01/02/2024 11:10 AM [place] [address] Dennise Jaimes [place] [address] 01/02/2024 2:00 PM EDT Office Visit Neurosurgery at [place] [phone] Dennise Jaimes DIRECT[place] [address] 01/10/2024 11:30 AM EDT Office Visit Endocrinology at [place] [phone] Alma Delia Martinez MD [facility] [address] documented as of this encounter Visit Diagnoses Not on filedocumented in this encounter Care Teams Architectural Job Captain Relationship Specialty Start Date End Date Lashawn Mcnally APRN [address] [place] [address] PCP - General Family Medicine 02/15/21 11/10/21 documented as of this encounter
--- OUTSIDE RECORDS SUMMARY | 2023-12-17 01:44 | XMS_ITS | Encounter Summary ---
Author Organization [place] [address] Care Team Providers Care Algologist Name Role Phone Terri Thrasher NAMRATA Primary Care Provider + Reason for Referral * Diagnostic Test (Routine) - Closed Specialty Diagnoses / Procedures Referred By Contac t Referred To Contact Radiology Diagnoses Cerebral aneurysm without rupture Procedures MRI Angiogram Head wo Contrast (Generic) [facility] Neurosurgery [address] [place] [phone] [place] [address] Referral ID Status Reason Start Date Expiration Date V isits Requested Visits Authorized [id number] Closed Specialty Service Requested 08/17/2019 02/16/2021 1 1 Reason for Visit * Diagnostic Test (Routine) - Closed Specialty Diagnoses / Procedures Referred By Contac t Referred To Contact Radiology Diagnoses Cerebral aneurysm without rupture Procedures MRI Angiogram Head wo Contrast (Generic) [facility] Neurosurgery [address] [place] [phone] [place] [address] Referral ID Status Reason Start Date Expiration Date V isits Requested Visits Authorized [id number] Closed Specialty Service Requested 08/17/2019 02/16/2021 1 1 Encounter Details Date Type Department Care Team (Latest Contact Info) Description 11/11/2019 12:13 PM EDT - 11/11/2019 11:59 PM EDT Hospital [place] [address] Eugenio Hernandez MD [facility] [place] [address] Cerebral aneurysm without rupture Discharge Disposition: Home Social History Tobacco Use [...] Sig Dispensed Refills Start Date End Date Xopenex HFA 45 mcg/actuation HFA Aerosol Inhaler as needed. 10/08/2019 FLUoxetine (PROzac) 20 mg Capsule 1 capsule daily. 06/24/2019 08/14/2023 documented as of this encounter Plan of Treatment Upcoming Encounters Date Type Department Care Team (Late st Contact Info) Description 01/01/2024 9:10 AM EDT Office Visit Orthopaedics at [place] [phone] Clinic, Dr Alfaro Team None 01/02/2024 11:10 [place] [address] Dennise Jaimes MULTI SENSOR OPERATOR [facility] [place] [address] 01/02/2024 2:00 PM EDT [place] [address] Dennise Jaimes MULTI SENSOR OPERATOR [facility] [place] [address] 01/10/2024 11:30 AM EDT Office Visit Endocrinology at [place] [phone] Alma Delia Martinez MD [facility] [place] [address] documented as of this encounter Procedures Procedure Name Priority Date/Time Associated Diagnosis Comments MRI HEAD ANGIOGRAM WO CONTRAST Routine 11/11/2019 2:00 PM EDT Cerebral aneurysm without rupture documented in this encounter Results * MRI [...] the number below. ? Electronically signed by: ROSETTA Tavares [facility] ([phone]), at 11/11/2019 3:32 PM Narrative 11/11/2019 3:32 [...] number below. Electronically signed by: ROSETTA Tavares [facility] ([phone]),at 11/11/2019 3:32 PM Eugenio Hernandez MD IMG MRI ORDERABLES documented in this encounter Visit Diagnoses Diagnosis Cerebral aneurysm without rupture Cerebral aneurysm, nonruptured documented in this encounter Care Teams Algologist Relationship Specialty Start Date End Date Terri Thrasher APRN PCP - General Family Medicine 08/01/18 02/14/21 documented as of this encounter
--- OUTSIDE RECORDS SUMMARY | 2023-12-17 01:44 | XMS_ITS | Encounter Summary ---
Author Organization [facility] [place] [address] Care Team Providers Care Instructor Product Inspection Name Role Phone Terri Thrasher NAMRATA Primary Care Provider + Encounter Details Date Type Department Care Team (Late st Contact Info) Description 10/07/2018 Orders [place] [address] Eugenio Hernandez MD [facility] [place] [address] Cerebral aneurysm without rupture Social [...] 9:10 AM EDT Office [place] [address] Clinic, Dr Alfaro Team None 01/02/2024 11:10 AM [place] [address] Dennise Jaimes APRN [facility] [place] [address] 01/02/2024 2:00 PM EDT Office [place] [address] Dennise Jaimes APRN [facility] [place] [address] 01/10/2024 11:30 AM EDT Office [place] [phone] Alma Delia Martinez MD [facility] [place] [address] documented as of this encounter Visit Diagnoses Diagnosis Cerebral aneurysm without rupture Cerebral aneurysm, nonruptured documented in this encounter Care Teams Instructor Product Inspection Relationship Specialty Start Date End Date Terri Thrasher, NAMRATA PCP - General Family Medicine 08/01/18 02/14/21 documented as of this encounter
--- OUTSIDE RECORDS SUMMARY | 2023-12-17 01:44 | XMS_ITS | Encounter Summary ---
Author Organization [facility] [place] [address] Care Team Providers Care Cordwainer Name Role Phone Terri Thrasher WIND TURBINE ERECTOR Primary Care Provider + Encounter Details Date Type Department Care Team (Late st Contact Info) Description 09/09/2018 Telephone [place] [address] Veronica Michael Social History Tobacco Use Types [...] Telephone Encounter - Veronica Michael - 09/23/2018 3:51 PM EDT Pt called back 09/22 unable to make 09/26 angiogram scheduled for 10/07. * Telephone Encounter - Veronica Michael - 09/22/2018 11:00 AM EDT LM for pt stating angio will have to be canceled for tomorrow, 09/23 rescheduled to Saturday, 09/26 at 8:50 arrival for 9:50 procedure. * Telephone Encounter - Veronica Michael - 09/10/2018 9:57 AM EDT Spoke to patient scheduled for 09/23, letter sent to pt. * Telephone Encounter - Michael, Veronica G - 09/09/2018 11:10 AM EDT Images from the original note were not included. LM for pt to call back to reschedule angio. Eugenio Hernandez MD Fogg, Meredith L, RN; Veronica Michael; Yelitza Nicole Neurosurgery Nurse Caller: Unspecified (5 days ago, ??8:54 AM) ?? For nicotine patch dose, we should start with 14 mg (recommended for 1/2 ppd) She would like to proceed with just angiogram first. We can keep that Saturday she's been offered or move it to another day. I warned her we might move it and she's fine with that. I did tell her we'd call with a final time. The angiogram can be done with moderate sedation. For aspirin, she got anxiety. I'm going to have her try a 1/2 dose (40) mg for a day then 81 mg each day in the week preceding the angiogram. No need for Plavix for just the angiogram. Mohsen documented in this encounter Plan of Treatment Upcoming Encounters Date Type Department Care Team (Late st Contact Info) Description 01/01/2024 9:10 AM EDT Office Visit [place] [phone] Clinic, Dr Alfaro Team None 01/02/2024 11:10 AM EDT [place] [phone] Dennise Jaimes APRN [facility] [place] [address] 01/02/2024 2:00 PM EDT Office [place] [phone] [place] [address] 01/10/2024 11:30 AM EDT Office Visit [place] [phone] Alma Delia Martinez MD [facility] [place] [address] documented as of this encounter Visit Diagnoses Not on filedocumented in this encounter Care Teams Cordwainer Relationship Specialty Start Date End Date Terri Thrasher APRN PCP - General Family Medicine 08/01/18 02/14/21 documented as of this encounter
--- OUTSIDE RECORDS SUMMARY | 2023-12-17 01:44 | XMS_ITS | Encounter Summary ---
Author Organization Formerly [facility] [place] [address] Care Team Providers Care Sanitation Supervisor Name Role Phone Terri Thrasher NAMRATA Primary Care Provider + Encounter Details Date Type Department Care Team (Late st Contact Info) Description 09/23/2018 9:10 PM EDT Ancillary Procedure [place] [address] Leif Hoffman MD [facility] [place] [address] Social History Tobacco Use Types Packs/Day Years [...] 9:10 AM EDT Office [place] [address] Thaddeus, Dr Alfaro Team None 01/02/2024 11:10 [place] [address] [place] [address] 01/02/2024 2:00 PM EDT [place] [address] Dennise Jaimes APRN [facility] [place] [address] 01/10/2024 11:30 AM EDT [place] [phone] Alma Delia Martinez MD [facility] [place] [address] documented as of this encounter Procedures Procedure Name Priority Date/Time Associated Diagnosis Comments FILM LIBRARY STORAGE ONLY CT HEAD Routine 09/23/2018 9:05 PM EDT documented in this encounter Results * Film Library- Storage Only CT Head (09/23/2018 9:05 PM EDT) Narrative [facility] - 09/23/2018 9:05 PM EDT This exam is auto-finalizing. It's purpose is for storage only. Leif Hoffman MD IMG FILM LIBRARY ORD ERABLES [place], [place] documented in this encounter Visit Diagnoses Not on filedocumented in this encounter Care Teams Sanitation Supervisor Relationship Specialty Start Date End Date Terri Thrasher APRN PCP - General Family Medicine 08/01/18 02/14/21 documented as of this encounter
--- OUTSIDE RECORDS SUMMARY | 2023-12-17 01:44 | XMS_ITS | Encounter Summary ---
Author Organization [facility] [place] [address] Care Team Providers Care Sports Nutritionist Name Role Phone Terri Thrasher FEATURE WRITER Primary Care Provider + Reason for Visit * Reason Comments Establish Care NXR Shean Heller Pa in second Opinion * Consultation (Routine) - Closed Specialty Diagnoses / Procedures Referred By Jesika maddox Referred To Contact Orthopaedics Diagnoses LONG STANDING HX OF LEF TSIDED WRIST PAIN, DX WITH DE QUERVAIN'S TENSYNOVITIS Terri Thrasher, FEATURE WRITER [address] [place] [address] [facility] Orthopaedics [address] [place] [phone] Referral ID Status Reason Start Date Expiration Date V isits Requested Visits Authorized [id number] Closed Consult, Test & Treat [facility] 08/01/2018 08/01/2019 1 1 Encounter Details Date Type Department Care Team (Late st Contact Info) Description 09/16/2018 10:20 AM EDT Office [place] [address] Chronic pain of left ankle Social History Tobacco Use Types Packs/Day Years [...] Time Taken Comments Blood Pressure 115/66 09/16/2018 10:13 AM EDT Pulse 78 09/16/2018 10:13 AM EDT Temperature - - Respiratory Rate - - Oxygen Saturation - - Inhaled Oxygen Concentration - - Weight 100.9 kg (222 lb 6.4 oz) 019 10:13 AM EDT Height 160 cm (5' 3) 09/16/2018 10:13 AM EDT Body Mass Index 39.4 09/16/2018 10:13 AM EDT documented in this encounter Progress Notes * Lyndsey Daigle MD - 09/16/2018 10:20 AM EDT PATIENT NAME: Holly Mcnally DATE OF VISIT: 09/16/18 CHIEF COMPLAINT: left posterior ankle pain HPI: Patient is a pleasant 38-year-old female who comes to clinic today with chief complaint of left posterior and lateral ankle pain. The patient reports that she was walking upstairs in March of last year when she felt a pop. She noticed that her posterior ankle above the calcaneal area of the Achilles was red and swollen. She notes that since then is gotten better but she still has pain. She has tried icing, Tylenol, has used a boot, and now wears a lace up ankle brace as needed. She notes thatshe did try physical therapy but that she feels it is making her ankle pain worse. The patient alsodoes endorse diffuse ankle pain. She notes that she feels she may have gout at her first MTP as well as it occasionally becomes swollen and red. This is not currently bothering her. She does also endorse sensation of ankle instability, causing her to wear an ankle brace. Denies any numbness or tingling. Hx cuboid fracture in Jun 2014 Social History: Current tobacco use - 1/2 ppd No alcohol use Works in [employer] Lives in [place], [place]. PMH: Patient Active Problem List Diagnosis Code ??? Chronic mastitis of right breast N60.11 ROS: as per HPI OBJECTIVE: Most Recent Vitals: 09/16/18 1013 BP: 115/66 Pulse: 78 Exam: General: NAD, well appearing LLE: Negative fernandez test (plantarflexion intact) No significant swelling. Anterior distal tibia ecchymosis. Motor intact and no sig pain with eversion and inversion. Mild TTP at Achilles calcaneal insertion. Radiology: No new MRI from earlier this month demonstrates intact Achilles Tendon, No significant edema at insertion.No occult fracture noted. ASSESSMENT and PLAN: 38 y.o. female is here with left ankle pain diffusely and at the calcaneal insertion. Intact plantarflexion and MRI demonstrates intact Achilles tendon. We discussed the patient's clinical exam as well as imaging findings. We discussed that fortunately the patient does not have what appears to be amechanical issue with her ankle-the Achilles is intact and there was no occult fracture identified on MRI. Unfortunately this means that her pain may be coming from irritation that we cannot see on imaging. Additionally we discussed that at this point there we do not see a need for surgical intervention. We would recommend continued conservative therapy as the patient has been doing. Patient reports some improvement with Velcro ankle brace. She does know what appears to be right sided trochanteric bursitis when wearing the walking boot to the brace may be a better option. We also discussed shoe inserts to help protect her heel where she is having some pain plantarly. We also discussed the utility of NSAIDs for pain. Finally we did recommend that she continue doing eccentric physical therapy strengthening exercises. All questions were answered. Lyndsey Daigle MD * Marcial Loera MD - 09/16/2018 10:20 AM EDT I saw the patient in conjunction with Dr. Daigle and agree with her assessment and plan. MRI reveals no significant abnormality of the Achilles, though this is her source of pain. She has been doing PT with eccentric strengthening, But it has been painful and she has had difficulty making progres s. Unfortunately, beyond continued PT, boot immobilization, and antiinflammatories I do not see an anatomic abnormality on imaging or physical exam that I think surgery would make better. I reassuredher that in many cases this will improve with time and the continued interventions she has been purs uing. documented in this encounter Plan of Treatment Upcoming Encounters Date Type Department Care Team (Late st Contact Info) Description 01/01/2024 9:10 AM EDT Office Visit Orthopaedics at [place] [address] Clinic, [address] Alfaro Team None 01/02/2024 11:10 AM EDT Appointment MRI at [address] Dennise Jaimes, FEATURE WRITER [facility] [place] [address] 01/02/2024 2:00 PM EDT Office Visit Neurosurgery at [facility] [place] [address] Dennise Jaimes, FEATURE WRITER [facility] [place] [address] 01/10/2024 11:30 AM EDT Office [place] [address] Alma Delia Martinez MD [facility] DR ENDOCRINOLOGY [place] [address] documented as of this encounter Visit Diagnoses Diagnosis Chronic pain of left ankle documented in this encounter Care Teams Sports Nutritionist Relationship Specialty Start Date End Date Terri Thrasher APRN PCP - General Family Medicine 08/01/18 02/14/21 documented as of this encounter
--- OUTSIDE RECORDS SUMMARY | 2023-12-17 01:44 | XMS_ITS | Encounter Summary ---
Author Organization [facility] [place] [address] Care Team Providers Care Blocking Machine Operator Second Name Role Phone Unknown Primary Care Provider Unavailabl e Encounter Details Date Type Department Care Team (Late st Contact Info) Description 10/04/2022 Telephone [place] [address] Juliet Gutierres RN Social History Tobacco Use Types Packs/Day [...] encounter Miscellaneous Notes * Telephone Encounter - Juliet Gutierres RN - 10/04/2022 1:46 PM EDT Pt called saying that she has a nodule on her right side but is now feeling something on her left side. She has an appt coming up and wants to know if you can do an ultrasound on it then? documented in this encounter Plan of Treatment Upcoming Encounters Date Type Department Care Team (Late st Contact Info) Description 01/01/2024 9:10 AM EDT Office [place] [phone] Clinic, Dr Alfaro Team None 01/02/2024 11:10 AM EDT [place] [phone] [place] [address] 01/02/2024 2:00 PM EDT Office [place] [address] [facility] [place] [address] 01/10/2024 11:30 AM EDT Office Visit Endocrinology at [place] [phone] Alma Delia Martinez MD [facility] [place] [address] documented as of this encounter Visit Diagnoses Not on filedocumented in this encounter Care Teams Blocking Machine Operator Second Relationship Specialty Start Date End Date Unknown None PCP - General 02/24/22 01/31/23 documented as of this encounter
--- OUTSIDE RECORDS SUMMARY | 2023-12-17 01:44 | XMS_ITS | Encounter Summary ---
[place] [address] Care Team Providers Care Seasonal Sales Associate Name Role Phone Lashawn Mcnally NAMRATA Primary Care Provider [phone] Encounter Details Date Type Department Care Team (Late st Contact Info) Description 02/20/2021 Orders [place] [address] Poncho De La Cruz MD [facility] [place] [address] Thyroid nodule Social History Tobacco Use Types Packs/Day Years [...] 9:10 AM EDT Office [place] [address] [address] Angelina Travis Team None 01/02/2024 11:10 AM [place] [address] [place] [address] 01/02/2024 2:00 PM EDT Office [place] [address] [place] [address] 01/10/2024 11:30 AM EDT Office [place] [phone] Alma Delia Martinez MD [facility] [place] [address] documented as of this encounter Visit Diagnoses Diagnosis Thyroid nodule Nontoxic uninodular goiter documented in this encounter Care Teams Seasonal Sales Associate Relationship Specialty Start Date End Date Lashawn Mcnally APRN [address] [place] [address] PCP - General Family Medicine 02/15/21 11/10/21 documented as of this encounter
--- OUTSIDE RECORDS SUMMARY | 2023-12-17 01:44 | XMS_ITS | Encounter Summary ---
[place] [address] Care Team Providers Care Snorkelling Instructor Name Role Phone Terri Thrasher NAMRATA Primary Care Provider + Reason for Referral * Diagnostic Test (Routine) - Closed Specialty Diagnoses / Procedures Referred By Contac t Referred To Contact Radiology Diagnoses Cerebral aneurysm without rupture Procedures IR Arteriogram Cerebral [facility] Neuro[facility] [address] [place] [phone] [facility] [place] [address] Referral ID Status Reason Start Date Expiration Date V isits Requested Visits Authorized [id number] Closed Specialty Service Requested 09/08/2018 09/08/2019 1 1 Reason for Visit * Diagnostic Test (Routine) - Closed Specialty Diagnoses / Procedures Referred By Contac t Referred To Contact Radiology Diagnoses Cerebral aneurysm without rupture Procedures IR Arteriogram Cerebral [facility] Neuro[facility] [address] [place] [phone] [facility] [place] [address] Referral ID Status Reason Start Date Expiration Date V isits Requested Visits Authorized [id number] Closed Specialty Service Requested 09/08/2018 09/08/2019 1 1 Encounter Details Date Type Department Care Team (Latest Contact Info) Description 10/07/2018 6:41 AM EDT - 10/07/2018 11:59 PM EDT Hospital [place] [address] Eugenio Hernandez MD [facility] DR DIAGNOST[place] [address] Pre-op testing; Facial droop; Cerebral aneurysm without rupture Discharge Disposition: Home [...] Sign Reading Time Taken Comments Blood Pressure 109/48 10/07/2018 11:22 AM EDT Pulse 72 10/07/2018 8:50 AM EDT Temperature 35.8 ??C (96.4 ??F) 10/07/2018 9:04 AM ED T Respiratory Rate 16 10/07/2018 11:22 AM EDT Oxygen Saturation 95% 10/07/2018 11:22 AM EDT Inhaled Oxygen Concentration - - Weight - - Height - - Body Mass Index - - documented in this encounter Discharge Instructions * Discharge Instructions* Jaiden Ojeda RN - 10/07/2018 8:39 AM EDT [facility] Interventional Radiology Post Angiography Instructions Procedure: Diagnostic Cerebral Angiogram Puncture Site: Right groin Date: 10/07/2018 Physician: MD Hernandez; MD Mcleod; MD Munoz 1. At home we advise you to rest quietly in bed or on the couch with your hip straight until the next morning. Until the next morning you may get up only to go to the bathroom. 2. Resume your previous diet. Drink 6-8 ounces of fluid per hour for the next 8 hours. Avoid alcoholic or caffeinated beverages for 24 hours. 3. Avoid strenuous activity for the next 48 hours, particularly in the next 24 hours. Stair climbing should be kept to a minimum. Do not lift objects heavier than 10-15 pounds for the next 48 hours Avoid straining for bowel movements as you can pop open the clot that has formed on the artery. 4. If you develop bulging under the skin or bleeding at the puncture site, put direct pressure on the puncture site for 15 minutes and call your doctor. If the bleeding persists, reapply pressure, and go to your local Emergency Department. 5. If you notice a sudden change in the feeling (numbness, tingling and/or pain) of your leg on theside of the puncture call your doctor. 6. You may develop a bruise at the puncture site. This should go away within a week to 10 days. If a bulge develops after the first three days, call your doctor or the Radiology/Vascular Department here. Report signs of infection (redness, swelling, discharge, soreness, or fever) to your doctor. 7. Leave the bandage on for 24-48 hours. You may shower the following day after the procedure. You should NOT swim or tub bathe for [address] for 24 hours after the procedure. Do not sign any important documents or smoke unattended for 24 hours. You may return to work with the above restrictions on . XXX 9. If you have any questions or concerns, please call Interventional Radiology Department at until 6pm. After 6pm, or on weekends or hoildays, call and ask for the resident care aide ribbon cutter. OR Vascular Department at until 4:45pm. After 4:45pm call and ask for the Vascular resident ribbon cutter. 10. If you are a diabetic and take Metformin or Janumet, Do not take it for 2 days after the procedure. XX You have received medication during your procedure to help lesson anxiety and keep you comfortable and which affects judgement and reaction time. We recommend that you do not drive, operate equipment, sign any important documents, or smoke unattended for 24 hours following your procedure. Because of the sedation please be careful on stairs, as you may be unsteady on your feet. You may resume your regular diet as tolerated. IV site -- slight redness, or tenderness is normal, you can use a warm compress. If tenderness and redness increases or foul drainage occurs, please contact your M. D. Revised 06/17/15 documented in this encounter Progress Notes * Lul Munoz MD - 10/07/2018 8:57 AM EDT INTERVENTIONAL RADIOLOGY BRIEF PROCEDURE NOTE Patient Name: Yung Mcnally : 1980 Case Date: 10/07/2018 Operators: Attending: Shani Hernandez Fellow: Tammy Indication: Patient is a 37 y.o. 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 Name of Procedure Performed: Diagnostic cerebral angiography Brief description of the procedure: ?? R MEDIA CONSULTANT OUTSIDE SALES access ?? R ICA selection and cerebral angiography Findings of the procedure: ?? 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 Right leg straight and head of bed <30 degrees x 2 hrs. 2. Discharge to home when meets recovery criteria. FULL PROCEDURE NOTE TO FOLLOW IN IMAGE REPORT Associated attestation - Eugenio Hernandez MD - 10/07/2018 8:20 PM EDT Findings of small right ophthalmic aneurysm discussed with patient and family. Ophthalmic artery arises directly from dome of wide necked 2 x 3 mm aneurysm. This makes endovascular treatment inadvisable. Since it is small, risk of rupture is very low. I have recommended surveillance. Although the aneurysm does make her anxious, she understands and is OK with this plan. MRA in 1 year. * Jaiden Ojeda RN - 10/07/2018 7:45 AM EDT To procedure room 4 via stretcher. Onto table in supine position. All monitors, O2, safety strap inplace. Med's per protocol. Angio only post procedure: Time sheath removed: 0847 Side: RIght Closure device used: Mynx Hematoma present? No Site release time: 08 Anticipated up time: 1051 * Jaiden Ojeda RN - 10/07/2018 7:38 AM EDT ANGIO NURSING DATABASE ?? Name: YUNG MCNALLY Date of : 1980 AGE: 38 y.o. ?? Address: [place] [address] (home) Mobile: Telephone Information: ?? Referring Provider: Eugenio Hernandez REASON FOR VISIT: Diagnostic cerebral angiogram Order Questions Answers Where will study be performed? [facility] [120] Is the patient on anticoagulant / anitplatelet therapy ? Aspirin Reason for exam and clinical history: unruptured cerebral aneurysm Exam/Procedure requested: Dx. angiogram Is the patient ? Unknown ? Allergies Allergen Reactions ??? Amoxicillin Nausea And Vomiting ? Passed out ? Asa Buff (Mag Carb-Al Glyc) [Aspirin, Buffered] ? Anxiety ??? Codeine Nausea Only ??? Nsaids (Non-Steroidal Anti-Inflammatory Drug) Palpitations ? Pertinent PMH: Patient Active Problem List Diagnosis Code ??? Chronic mastitis of right breast N60.11 ? Pertinent PSH: Past??Surgical??History Past Surgical History: Procedure Laterality Date ??? BREAST CYST EXCISION Right mar 2015 ?? duct removal ??? CHOLECYSTECTOMY ? DILATION AND CURETTAGE OF UTERUS ? HERNIA REPAIR ? Date/Procedure Meds given/comments 10/07/2018 Diagnostic Cerebral ?? Fentanyl 125 mcg IV; Versed 1 mg IV; Pt tolerated the procedure very well. ? Laboratory Results: Lab Results Component Value Date ?? CREATININE 0.75 08/12/2018 Lab Results Component Value Date ?? K 3.9 08/12/2018 ?? Lab Results Component Value Date ?? PLATELET 311 08/12/2018 ? Medications: Prior to Admission medications Medication Sig Start Date End Date Taking? Authorizing Provider nicotine (NICODERM CQ) 21 mg/24 hr [address] 1 patch onto the skin daily. See package instructions 09/16/18 ? Dot Garcia APRN nicotine (NICOTROL) 10 mg Cartridge Inhale 1 puff into the lungs as needed for Smoking cessation (No more than 16 cartridges per day). 09/16/18 ? Dot Garcia APRN ? * Lul Munoz MD - 10/07/2018 7:16 AM EDT INTERVENTIONAL RADIOLOGY FOCUSED H&P: Procedure: The patient's history and physical exam have been reviewed and completed. There has been no interval change from that of the pre-operative history and physical exam done within the last 30 days. Physical Exam: Cardiovascular: Regular, Normal Vascular: 2+ femoral pulses, dopplerable pedal pulses Neuro: AOx3, R facial drop (Gillette's palsy), patient reported right sided weakness (both baseline) The planned procedure (and sedation plan if appropriate) , its benefits and risks, and alternativeswere discussed with the patient. The patient consented to the procedure. PRE-SEDATION ASSESSMENT: Sedation Plan: moderate (conscious sedation) ASA: 2: Patient with mild systemic disease Mallampati: II: tonsillar pillars are blocked by the tongue Confirm NPO status: Yes History of anesthetic complications: No Current medications reviewed: Yes Allergies reviewed: Yes documented in this encounter Plan of Treatment Upcoming Encounters Date Type Department Care Team (Late st Contact Info) Description 01/01/2024 9:10 AM EDT Office [place] [address] Thaddeus, Dr Alfaro Team None 01/02/2024 11:10 AM [place] [phone] Dennise Jaimes APRN [facility] [place] [address] 01/02/2024 2:00 PM EDT [place] [phone] Dennise Jaimes APRN [facility] [place] [address] 01/10/2024 11:30 AM EDT Office [place] [address] Alma Delia Martinez MD [facility] [place] [address] documented as of this encounter Procedures Procedure Name Priority Date/Time Associated Diagnosis Comments IR ARTERIOGRAM CEREBRAL Routine 10/07/2018 9:08 AM EDT Cerebral aneurysm without rupture documented in this encounter Results * IR Arteriogram Cerebral [...] 125 cm Glidewire, 0.035 inch J-wire, 5 [place] sheath, 5Fr vert catheter, Mynx vascular closure device. TECHNIQUE: The patient was brought to the angiography suite. The right groin was sterilely prepped and draped. Using micropuncture set, the femoral artery was accessed and the 5 [place] pinnacle sheath was placed, and double flushed. 5 [place] vert catheter was positioned in the descending [...] 0.035 125 cm Glidewire, 0.035 inch J-wire,5 [place] sheath, 5Fr vert catheter, Mynx vascular closure device. TECHNIQUE: The patient was brought to the angiography suite. The rightgroin was sterilely prepped and draped. Using micropuncture set, the femoral arterywas accessed and the 5 [place] pinnacle sheath was placed, and double flushed.5 [place] vert catheter was positioned in the descending [...] the number below. Electronically signed by: ROSETTA Galaviz [facility]([phone]), at 10/21/2018 5:57 PM Eugenio Hernandez MD IMG IR ORDERABLES * Platelet count (10/07/2018 6:35 AM EDT) Platelets 292 145 - 357 x10(3)/mc L [facility] Plat Immature % 1.5 0.0 - 7.4 % [facility] Comment: Limitation of the Immature Platelet Fraction (IPF)-May be less reliable when the platelet count is less than 70x085/uL due to statistical imprecision. The IPF value [...] in a decreased state of production. References: [employer] The Clinical Value of the Immature Platelet Fraction (IPF) in Cell Recovery Document Number 10-1143 11/2010 [employer] The Role of the Immature Platelet Fraction (IPF) in the Differential Diagnosis of Thrombocytopenia, Document [id number] V05 P0514 Blood specimen (specimen) 10/07/2018 6:35 AM EDT 10/07/2018 7:10 AM EDT Narrative Resulting Agency Comment Spec In Lab Eugenio Hernandez MD HEMATOLOGY ORDERABLE S Performing Organization Address City/State/[facility] Co de Phone Number [facility] [place] [address] documented in this encounter Visit Diagnoses Diagnosis Pre-op testing Preoperative examination, unspecified Facial droop Facial weakness Cerebral aneurysm without rupture Cerebral aneurysm, nonruptured documented in this encounter Administered Medications Inactive Administered Medications - up to 3 most recent administrations Medication Order MAR Action Action Date Dose Rate Site acetaminophen (TYLENOL) 325 mg tablet 1 dose, Starting on Sat10/07/18 at 0921, Until Sat10/07/18 at 0930, EMELI RAMOS: cabinet override acetaminophen (TYLENOL) tablet 750 mg 750 mg, Oral, EVERY 6 HOURS PRN, Starting on Sat10/07/18 at 0909, Until Sat10/08/18 at 0443, Pain, Maximum dose of acetaminophen is 4000 mg from all sources in 24 hours., Routine Given 10/07/2018 9:30 AM EDT 650 mg fentaNYL (PF) 50 mcg/mL injection 1 dose, Starting on Sat10/07/18 at 0738, Until Sat10/07/18 at 0755, JAIDEN OJEDA: cabinet override fentaNYL 50 mcg/mL multi-dose injection 25-50 mcg, Intravenous, EVERY 5 MIN PRN, Starting on Sat10/07/18 at 0742, Until Sat10/07/18 at 1135, Pain, per unit protocol, - Start dose 50 mcg (reduce dose to 25 mcg if history of sedation sensitivity). - Titration dose 25-50 mcg IV, (based on patient response) every 3 minutes PRN, to maintain procedural pain less than 2 per pain Scale. Maximum dose: 50 mcg/dose, 250 mcg/hour For use in Interventional Radiology (IR) only for procedural sedation with direct provider supervision and verbal order., Angio/IR (Intra-Procedure), Routine Given 10/07/2018 8:20 AM EDT 25 mcg Given 10/07/2018 8:10 AM EDT 25 mcg Given 10/07/2018 8:05 AM EDT 25 mcg iodixanol (VISIPAQUE) 320 mg iodine/mL injection 150 mL 150 mL, Intra-arterial, ONCE PRN, 1 dose, Starting on Sat10/07/18 at 0805, Until Sat10/07/18 at 0908, Per Protocol, Angio/IR (Intra-Procedure), Routine Given 10/07/2018 9:08 AM EDT 40 mLs lidocaine (XYLOCAINE) 10 mg/mL (1 %) injection 10 mg 10 mg, Subcutaneous, ONCE, 1 dose, On Sat10/07/18 at 0800, For use in Interventional Radiology (IR) only for procedure with direct provider supervision and verbal order., Angio/IR (Intra-Procedure), Routine Given 10/07/2018 8:06 AM EDT 10 mg midazolam (PF) (VERSED) 1 mg/mL injection 1 dose, Starting on Sat10/07/18 at 0738, Until Sat10/07/18 at 0755, JAIDEN OJEDA: cabinet override midazolam (PF) (VERSED) multi-dose injection 0.5-1 mg 0.5-1 mg, Intravenous, EVERY 3 MIN PRN, Starting on Sat10/07/18 at 0742, Until Sat10/07/18 at 1135, Sleep, - Start dose; 1 mg (Reduce dose to 0.5 mg if history of sedation sensitivity). - Titration dose: 0.5 mg - 1 mg (based on patient response) every 3 minutes PRN to obtain RASS score of -3. Maximum dose: 1 mg per dose, 5 mg/hour. For use in Interventional Radiology (IR) only for procedural sedation with direct provider supervision and verbal order., Angio/IR (Intra-Procedure), Routine Given 10/07/2018 8:00 AM EDT 0.5 mg Given 10/07/2018 7:55 AM EDT 0.5 mg sodium chloride 0.9 % flush 5 mL 5 mL, Intravenous, EVERY 12 HOURS, First dose on Sat10/07/18 at 0800, Until Discontinued, Day of Surgery (Day of Procedure), Routine Given 10/07/2018 8:00 AM EDT 5 mLs documented in this encounter Care Teams Snorkelling Instructor Relationship Specialty Start Date End Date Terri Thrasher, NAMRATA PCP - General Family Medicine 08/01/18 02/14/21 documented as of this encounter
--- OUTSIDE RECORDS SUMMARY | 2023-12-17 01:44 | XMS_ITS | Encounter Summary ---
[place] [address] Care Team Providers Care Feed Mixer Name Role Phone Barbra Claudia Gabriel APRN Primary Care Provider [phone] Reason for Referral * Diagnostic Test (Routine) - Closed Specialty Diagnoses / Procedures Referred By Jesika t Referred To Contact Radiology Diagnoses Aneurysm of ophthalmic artery Procedures MRI Angiogram Head wo Contrast (Generic) [place] [address] [place] [address] Referral ID Status Reason Start Date Expiration Date V isits Requested Visits Authorized [id number] Closed Specialty Service Requested 11/24/2021 05/26/2023 1 1 Encounter Details Date Type Department Care Team (Late st Contact Info) Description 11/24/2021 1:00 PM EDT [place] [phone] [place] [address] Aneurysm of ophthalmic artery Social [...] Sign Reading Time Taken Comments Blood Pressure 101/68 11/24/2021 12:47 PM EDT Pulse 82 11/24/2021 12:47 PM EDT Temperature 37.2 ??C (98.9 ??F) 11/24/2021 12:47 PM E DT Respiratory Rate 18 11/24/2021 12:47 PM EDT Oxygen Saturation 98% 11/24/2021 12:47 PM EDT Inhaled Oxygen Concentration - - Weight 88 kg (194 lb) 11/24/2021 12:47 PM EDT Height 162.6 cm (5' 4) 11/24/2021 12:47 PM EDT Body Mass Index 33.3 11/24/2021 12:47 PM EDT documented in this encounter Patient Instructions * Patient Instructions* Dennise Jaimes APRN - 11/24/2021 3:28 PM EDT Hi Holly, You will see on the radiology report that there is mention of infundibulum versus tiny aneurysm on the left side. This is not an uncommon finding. Infundibulums are normal variants that can look likeaneurysm, but they have no risk of rupture. It may have been seen today (and not previously) because of the image quality or the position of your head. It is not a concerning finding and we will justmonitor it as we have your aneurysm. Please let me know any questions. Sincerely, Dennise documented in this encounter Progress Notes * Dennise Jaimes APRN - 11/24/2021 1:00 PM EDT CHIEF COMPLAINT (in bold): Patient Active Problem List Diagnosis ??? 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 Cerebral angiogram 2019, broad necked, would require flow diverting stent. Followed with serial MRA by Dr. Hernandez. ??? Facial droop ??? Chronic pain of left ankle ??? Chronic mastitis of right breast HISTORY: Holly Mcnally Establishing care from Dr. Hernandez, who she last saw 11/2020. Returns in scheduled 1 year followup with MRA. No new headaches or concerns referable to aneurysm. PHYSICAL EXAM: No acute distress Awake, Alert, Interactive No drift Moving all extremities with full strength IMAGING & OTHER RESULTS: MRA head from today personally reviewed. Stable R ophthalmic artery aneurysm. Radiology report reviewed; indicates tiny aneurysm v. Infundibulum L ICA. ASSESSMENT/PLAN: Aneurysm of ophthalmic artery Clinically and radiographically stable R ophthalmic artery [...] than aneurysm itself. Repeat MRA 1 year. documented in this encounter Miscellaneous Notes * Assessment & Plan Note - Dennise Jaimes APRN - 11/24/2021 3:23 PM EDT Associated Problem(s): Aneurysm of ophthalmic artery Clinically and radiographically stable R ophthalmic artery [...] than aneurysm itself. Repeat MRA 1 year. documented in this encounter Plan of Treatment Upcoming Encounters Date Type Department Care Team (Late st Contact Info) Description 01/01/2024 9:10 AM EDT [place] [address] [address] Angelina Travis Team None 01/02/2024 11:10 [place] [address] Dennise Jaimes APRN [facility] [place] [address] 01/02/2024 2:00 PM EDT [place] [address] Dennise Jaimes APRN [facility] [place] [address] 01/10/2024 11:30 AM EDT Office [place] [address] Alma Delia Martinez MD [facility] DR [place] [address] documented as of this encounter [...] who have questions please contact the health healthcare interpreter that requested your imaging first. ? Electronically signed by: Nazario Cedillo MD, [facility] ([phone]), at 12/21/2022 6:39 PM Narrative 12/21/2022 6:39 [...] patients who have questions please contactthe health healthcare interpreter that requested your imaging first. Dennise Jaimes APRN IMG MRI ORDERABLES documented in this encounter Visit Diagnoses Diagnosis Aneurysm of ophthalmic artery Cerebral aneurysm, nonruptured Aneurysm of ophthalmic artery Cerebral aneurysm, nonruptured documented in this encounter Care Teams Feed Mixer Relationship Specialty Start Date End Date Claudia Belle APRN [address] [place] [address] [address] [facility] [address] [place] [address] PCP - General Family Medicine 11/11/21 02/23/22 documented as of this encounter
--- OUTSIDE RECORDS SUMMARY | 2023-12-17 01:44 | XMS_ITS | Encounter Summary ---
[place] [address] Care Team Providers Care Cotton Grower Name Role Phone Terri Thrasher NAMRATA Primary Care Provider + Reason for Referral * Diagnostic Test (Routine) - Closed Specialty Diagnoses / Procedures Referred By Jesika maddox Referred To Contact Radiology Diagnoses Cerebral aneurysm without rupture Procedures MRI Angiogram Head wo Contrast (Generic) Eugenio Hernandez MD [facility] [place] [address] [place] [address] Referral ID Status Reason Start Date Expiration Date V isits Requested Visits Authorized [id number] Closed Specialty Service Requested 11/12/2019 05/13/2021 1 1 Reason for Visit * Diagnostic Test (Routine) - Closed Specialty Diagnoses / Procedures Referred By Contac t Referred To Contact Radiology Diagnoses Cerebral aneurysm without rupture Procedures MRI Angiogram Head wo Contrast (Generic) Eugenio Hernandez MD [facility] [place] [address] [place] [address] Referral ID Status Reason Start Date Expiration Date V isits Requested Visits Authorized [id number] Closed Specialty Service Requested 11/12/2019 05/13/2021 1 1 Encounter Details Date Type Department Care Team (Latest Contact Info) Description 11/02/2020 1:31 PM EDT - 11/02/2020 11:59 PM EDT Hospital Encounter MRI at [place] [id number] Eugenio Hernandez MD [facility] [place] [address] Cerebral aneurysm without rupture Discharge Disposition: Home [...] 9:10 AM EDT Office Visit Orthopaedics at [place] [phone] Clinic, Dr Alfaro Team None 01/02/2024 11:10 AM [place] [address] Dennise Jaimes APRN [facility] [place] [address] 01/02/2024 2:00 PM EDT Office Visit Neurosurgery at [place] [phone] Dennise Jaimes [place] [address] 01/10/2024 11:30 AM EDT Office [place] [address] Alma Delia Martinez MD [facility] [place] [address] documented as of this encounter Procedures Procedure Name Priority Date/Time Associated Diagnosis Comments MRI HEAD ANGIOGRAM WO CONTRAST Routine 11/02/2020 3:33 PM EDT Cerebral aneurysm without rupture documented [...] who have questions please contact the health pediatric critical care nurse that requested your imaging first. ? Electronically signed by: Nazario Cedillo MD, [facility] ([phone]), at 11/02/2020 3:49 PM Narrative 11/02/2020 3:49 [...] motion artifact limiting the study however the [place] is fairly well visualized. The [...] motion artifact limiting the study however the [place] isfairly well visualized. The small [...] patients who have questions please contactthe health pediatric critical care nurse that requested your imaging first. Electronically signed by: Nazario Cedillo MD, [facility]([phone]), at 11/02/2020 3:49 PM Eugenio Hernandez MD IMG MRI ORDERABLES documented in this encounter Visit Diagnoses Diagnosis Cerebral aneurysm without rupture Cerebral aneurysm, nonruptured documented in this encounter Care Teams Cotton Grower Relationship Specialty Start Date End Date Terri Thrasher APRN PCP - General Family Medicine 08/01/18 02/14/21 documented as of this encounter
--- OUTSIDE RECORDS SUMMARY | 2023-12-17 01:44 | XMS_ITS | Encounter Summary ---
[facility] [place] [address] Care Team Providers Care Medical Instrument Cable Fabricator Name Role Phone Terri Thrasher NAMRATA Primary Care Provider + Encounter Details Date Type Department Care Team (Late st Contact Info) Description 10/28/2018 11:30 AM EDT Office Visit [place] [address] Romi Thompson Cigarette nicotine dependence without complication Social History Tobacco Use Types Packs/Day Years [...] Sign Reading Time Taken Comments Blood Pressure 107/68 10/28/2018 11:08 AM EDT Pulse 76 10/28/2018 11:08 AM EDT Temperature 37 ??C (98.6 ??F) 10/28/2018 11:08 AM EDT Respiratory Rate 18 10/28/2018 11:08 AM EDT Oxygen Saturation 99% 10/28/2018 11:08 AM EDT Inhaled Oxygen Concentration - - Weight 100.2 kg (221 lb) 10/28/2018 11:08 AM EDT Height 163 cm (5' 4.17) 10/28/2018 11:08 AM EDT Body Mass Index 37.73 10/28/2018 11:08 AM EDT documented in this encounter Progress Notes * Romi Thompson A - 10/28/2018 11:30 AM EDT Thoracic Surgery - Tobacco Cessation Consultation JARETH Aguero (Kate) [place] [phone] FAX: HPI: Holly Mcnally is a 38 y.o. female who is being seen today for tobacco cessation. Type of tobacco used: () Smokeless tobacco () e-cigarette (X)Cigarettes Brand currently smoking: [place] Current amount: 10 ppd Age initiated: 17 yrs Years smoked:16.5 Previous quit attempts and methods: none Are there children in the home: yes Positive aspects of smoking:It's comforting. Negative aspects of smoking: Impairing circulation Reasons for quitting: kids and health Concerns about quitting: afraid what will happen when she doesn't have her thing He/She denies f/c/n/v/SOB/CP. CO level: 22 ppm 15 minutes were spent with this patient in counseling for tobacco cessation. Plan: Quit Date: Does not have a quit date. 4. Call with any questions or concerns Holly is afraid to quit. She has the nictotrol inhaler and the nicotine patch. I encouraged her to make some practice attempts and begin the process of tapering when she feels comfortable. I also advised her to use the inhaler as her crutch, instead of tobacco. I described the process for using the inhaler and explained that nothing will feel like smoking, with the exception of the inhaler. She is reluctant to begin the process and setting a date is adding to her stress level. I have asked her to email me to report how she's doing and then plan to set up an appointment when she returns in February. She is in agreement. I will email her to begin the conversation. Romi Thompson 10/28/18 Thoracic Surgery - Tobacco Cessation [facility] documented in this encounter Plan of Treatment Upcoming Encounters Date Type Department Care Team (Late st Contact Info) Description 01/01/2024 9:10 AM EDT Office Visit Orthopaedics at [place] [address] Clinic, Dr Alfaro Team None 01/02/2024 11:10 AM EDT Appointment MRI at [place] [address] Dennise Jaimes APRN [facility] [place] [address] 01/02/2024 2:00 PM EDT Office Visit Neurosurgery at [place] [address] [place] [address] 01/10/2024 11:30 AM EDT Office Visit Endocrinology at [place] [address] Alma Delia Martinez MD [facility] [place] [address] documented as of this encounter Visit Diagnoses Diagnosis Cigarette nicotine dependence without complication Tobacco use disorder documented in this encounter Care Teams Medical Instrument Cable Fabricator Relationship Specialty Start Date End Date Terri Thrasher APRN PCP - General Family Medicine 08/01/18 02/14/21 documented as of this encounter
--- OUTSIDE RECORDS SUMMARY | 2023-12-17 01:45 | XMS_ITS | Encounter Summary ---
Author Organization [facility] [place] [address] Care Team Providers Care Director Of Sports Medicine Name Role Phone Randell Haji MD Primary Care Provider [phone] Reason for Visit * Reason Onset Date Comments Follow-up 10/13/2015 Encounter Details Date Type Department Care Team (Late st Contact Info) Description 10/13/2015 Telephone [place] [address] Shabana Rmoo APRN [facility] [place] [address] Follow-up Social History Tobacco Use Types Packs/Day Years Used Date Smoking Tobacco: Every Day Comments:smokes 4-5 cig per day Sex and Gender Information Value Date Recorded Sex Assigned at Not on file Gender Identity Not on file Sexual Orientation Not on file documented as of this encounter Miscellaneous Notes * Telephone Encounter - Shabana Romo APRN - 10/13/2015 10:05 AM EDT Holly called to discuss follow up after her imaging was normal. She is relieved and understands the importance of early treatment with new infections and smoking cessation. She agrees and will call me in the future with any new concerns. documented in this encounter Plan of Treatment Upcoming Encounters Date Type Department Care Team (Late st Contact Info) Description 01/01/2024 9:10 AM EDT Office Visit [place] [address] Clinic, Dr Alfaro Team None 01/02/2024 11:10 AM EDT Appointment MRI at [place] [phone] Dennise Jaimes, [place] [address] 01/02/2024 2:00 PM EDT Office Visit Neurosurgery at [place] [phone] Dennise Jaimes, [place] [address] 01/10/2024 11:30 AM EDT Office Visit [place] [address] Alma Delia Martinez MD [facility] [place] [address] documented as of this encounter Visit Diagnoses Not on filedocumented in this encounter Care Teams Director Of Sports Medicine Relationship Specialty Start Date End Date Randell Haji MD [address] [place] [phone] PCP - General 04/25/10 07/31/18 documented as of this encounter
--- OUTSIDE RECORDS SUMMARY | 2023-12-17 01:45 | XMS_ITS | Encounter Summary ---
[place] [address] Care Team Providers Care Landing Man Name Role Phone Randell Haji MD Primary Care Provider [phone] Encounter Details Date Type Department Care Team (Late st Contact Info) Description 09/15/2015 Orders Only Hematology and Oncology at [place] [phone] Shabana Romo [facility] [place] [address] Breast pain Social History Tobacco Use Types Packs/Day Years [...] 9:10 AM EDT Office Visit Orthopaedics at [place] [phone] Clinic, Dr Alfaro Team None 01/02/2024 11:10 [place] [address] Dennise Jaimes [facility] [place] [address] 01/02/2024 2:00 PM EDT Office Visit Neurosurgery at [place] [phone] Dennise Jaimes SENIOR QUALITY TECHNICIAN [place] [address] 01/10/2024 11:30 AM EDT [place] [address] Alma Delia Martinez MD [facility] [place] [address] documented as of this encounter Visit Diagnoses Diagnosis Breast pain Mastodynia documented in this encounter Care Teams Landing Man Relationship Specialty Start Date End Date Randell Haji MD [address] [place] [phone] PCP - General 04/25/10 07/31/18 documented as of this encounter
--- OUTSIDE RECORDS SUMMARY | 2023-12-17 01:45 | XMS_ITS | Encounter Summary ---
Author Organization [facility] [place] [address] Care Team Providers Care Jewel Stringer Name Role Phone Terri Thrasher APRN Primary Care Provider + Reason for Referral * Consultation (Routine) - Closed Specialty Diagnoses / Procedures Referred By Contac t Referred To Contact Neurology Mil Darby MD [facility] [place] [address] [facility] [address] [place] [id number] Referral ID Status Reason Start Date Expiration Date V isits Requested Visits Authorized [id number] Closed Consult, Test & Treat 08/12/2018 08/12/2019 1 1 * Consultation (Routine) - Closed Specialty Diagnoses / Procedures Referred By Contac t Referred To Contact Neurosurgery Diagnoses Right infundibulum vs 4mm outpouching on CTA without corresponding symptoms. Mil Darby MD [facility] [place] [address] Eugenio Hernandez MD [facility] DIAGNOST[place] [address] Referral ID Status Reason Start Date Expiration Date V isits Requested Visits Authorized [id number] Closed Consult, Test & Treat 08/12/2018 08/12/2019 1 1 Reason for Visit * Reason Comments Dizziness Encounter Details Date Type Department Care Team (Late st Contact Info) Description 08/12/2018 4:33 PM EDT - 08/12/2018 11:26 PM EDT Emergency Emergency Department [facility] [place] [address] Nathaniel Venegas MD [facility] DR [place]ER[place] [address] Dizziness Discharge Disposition: Home Social History Tobacco Use [...] Sign Reading Time Taken Comments Blood Pressure 117/77 08/12/2018 11:00 PM EDT Pulse 80 08/12/2018 3:33 PM EDT Temperature 36.8 ??C (98.2 ??F) 08/12/2018 11:25 PM E DT Respiratory Rate 18 08/12/2018 3:33 PM EDT Oxygen Saturation 97% 08/12/2018 11:00 PM EDT Inhaled Oxygen Concentration - - Weight 96.2 kg (212 lb) 08/12/2018 12:54 PM EDT Height 162.6 cm (5' 4) 08/12/2018 12:54 PM EDT Body Mass Index 36.39 08/12/2018 12:54 PM EDT documented in this encounter Discharge Instructions * Discharge Instructions* Mil Darby MD - 08/12/2018 11:05 PM EDT You were seen in the emergency department for your dizziness and headaches. You had a CT scan of the arteries in your brain which show what looks like a infundibulum which can be a normal variant in your brains vessels. Otherwise the CT scan of your head was normal and reassuring. Additionally your laboratory workup is normal and reassuring. You are being referred to neurologic interventional radiology for follow-up on this CT imaging finding as well as neurology to continue to talk about your headaches and dizziness. If you have worsening of your symptoms please return to the emergency department. * Attachments The following attachments cannot be sent through Care Everywhere. * Dizziness ([place]) * Migraine Headache ([place]) documented in this encounter ED Notes * Dianna Olivas NRP - 08/12/2018 7:55 PM EDT Pt returned from CT. * Wilfred Hu RN - 08/12/2018 7:[address] Venegas at bedside * Mil Darby MD - 08/12/2018 6:18 PM EDT Holly Mcnally is an 37 y.o. female who presents to the ED with: Chief Complaint Patient presents with ??? Dizziness I saw this patient 08/12/2018 at ~ 6:18 PM HPI Holly Mcnally is a 37 y.o. female with a PMH significant for migraines, tobacco abuse who presentsto the Emergency Department with progressively worsening intermittent headaches as well as feeling off balance which she describes as tipsy. She does not describe the room spinning around her. Additionally she had a syncopal episode on Saturday for which she was evaluated outside hospital. She was given fluids and IV medications and then discharged home. She does not think that she had any neuroimaging. Since this time she has not gotten markedly worse but she is gradually worsened and has not noticed any improvement. She states that she had migraines in her early 20s but this is different. She states that she does not always feel off balance but occasionally feels like she is wobbly whenshe walks in a straight line. No blurring of her vision or diplopia however she does intermittentlyblack dots in her left eye. Additionally she feels some occasional throbbing behind her left eye.No syncopal episodes since Saturday. She did not have any chest pain or shortness of breath precedingor proceeding this episode. She is status post bilateral tubal ligation. Last menstrual period was mid July. No abdominal cramping. Social History Socioeconomic History ??? Marital status: Single Spouse name: Not on file ??? Number of children: Not on file ??? Years of education: Not on file ??? Highest education level: Not on file Social Needs ??? Financial resource strain: Not on file ??? Food insecurity - worry: Not on file ??? Food insecurity - inability: Not on file ??? Transportation needs - medical: Not on file ??? Transportation needs - non-medical: Not on file Occupational History ??? Not on file Tobacco Use ??? Smoking status: Current Every Day Smoker Packs/day: 0.50 Types: Cigarettes ??? Smokeless tobacco: Never Used ??? Tobacco comment: smokes 4-5 cig per day Substance and Sexual Activity ??? Alcohol use: Never Frequency: Never ??? Drug use: Never ??? Sexual activity: Not on file Other Topics Concern ??? Not on file Social History Narrative ??? Not on file Review of Systems: Review of Systems Constitutional: Negative for appetite change, diaphoresis and fever. HENT: Negative for hearing loss and sore throat. Eyes: Negative for photophobia and pain. Respiratory: Negative for chest tightness and shortness of breath. Cardiovascular: Negative for chest pain. Gastrointestinal: Negative for abdominal pain. Endocrine: Negative for cold intolerance. Genitourinary: Negative for dysuria. Musculoskeletal: Negative for myalgias and neck pain. Skin: Negative for pallor and rash. Neurological: Positive for dizziness, weakness, light-headedness and headaches. Psychiatric/Behavioral: Negative for confusion. Vital Signs: Patient Vitals for the past 24 hrs: BP Temp Temp src Pulse Resp SpO2 Height Weight 08/12/18 1533 120/86 37 ??C (98.6 ??F) Oral 80 18 97 % -- -- 08/12/18 1254 134/81 36.9 ??C (98.4 ??F) Oral 87 20 97 % 162.6 cm (5' 4) 96.2 kg (212 lb) I have reviewed the vital signs, which demonstrates afebrile, vital signs stable. Physical Exam: Physical Exam Constitutional: She is oriented to person, place, and time. She appears well- developed and well-nourished. No distress. Well-appearing female sitting in no apparent distress. HENT: Head: Normocephalic and atraumatic. Eyes: Pupils are equal, round, and reactive to light. Conjunctivae and EOM are normal. Fundoscopic exam: The right eye shows no papilledema. The left eye shows no papilledema. Neck: Neck supple. Cardiovascular: Normal rate, regular rhythm, normal heart sounds and intact distal pulses. Exam reveals no gallop and no friction rub. No murmur heard. Pulmonary/Chest: Effort normal. No respiratory distress. She has wheezes ( diffuse high pitched expiratory wheezes). Abdominal: Soft. Bowel sounds are normal. She exhibits no distension. There is no tenderness. Musculoskeletal: Normal range of motion. She exhibits no edema. Neurological: She is alert and oriented to person, place, and time. MS: AAOx4, clear language, no dysarthria, follows commands CN: PERRL, EOMI, visual vieira full Facial sensation intact, no facial asymmetry Hearing intact to finger rub Palate elevates symmetrically, tongue protrudes midline SCM and trap strength intact Motor: Normal bulk and tone. UE: 5/5 R, 5/5 L Arm abduction at shoulder 5/5 R, 5/5 L Elbow extension 5/5 R, 5/5 L Elbow flexion 5/5 R, 5/5 [employer] Chair LE: 5/5 R, 5/5 L Hip flexion 5/5 R, 5/5 L Knee extension 5/5 R, 5/5 L Knee flexion 5/5 R, 5/5 L Foot dorsiflexion 5/5 R, 5/5 L Foot plantar flexion Sensation: Intact to light touch, temperature, and vibration throughout Reflexes: Toes - R down, L down Coordination: Finger to nose intact, no dysmetria Rapid alternating movements & finger tapping smooth and symmetric Heel-lambert intact No tremor Gait: Stable, steady Skin: Skin is warm and dry. She is not diaphoretic. Psychiatric: She has a normal mood and affect. Her behavior is normal. Nursing note and vitals reviewed. ED Course: - Patient was evaluated and discussed with Dr. Venegas - Medications, allergies and past medical history reviewed - Nursing notes and vital signs reviewed ED Course as of Aug 13 205 Tue Aug 12, 2018 182 Glucose Lvl: 85 1820 Sodium: 143 0 Potassium: 3.9 0 Chloride: 103 0 POC Urine HCG: Negative 1820 Per oscar note at 12:53 patient ambulating with steady gait 1821 Normal sinus rhythm, normal axis, FL, QRS and QTC are within normal limits. There is no evidence of arrhythmia or ischemic changes. EKG 12 Lead Wed Aug 13, 2018202 Culture Reflexed: No 0204 4 mm outpouching of the right ophthalmic artery origin, question aneurysm versus infundibulum. Normal CTA neck CT Angiogram Carotids & [place] - Medications and fluid administered: Medications acetaminophen (TYLENOL) tablet 1,000 mg (1,000 mg Oral Given 08/12/181832) lactated Ringers 1,000 mL IV bolus ( Intravenous Stopped 08/12/182102) iohexol (OMNIPAQUE) 350 mg/mL solution 0-200 mL (120 mLs Intravenous Given 08/12/181944) - I have reviewed the labs, which are significant for: Recent Results (from the past 24 hour(s)) POCT urine Result Value Ref Range POC Urine HCG Negative Negative - Negative POC Control Internal Controls Acceptable Urinalysis with reflex Culture Result Value Ref Range Glucose UA Negative Negative mg/dL Protein UA Negative Negative mg/dL Bilirubin UA Negative Negative mg/dL Urobilinogen UA Normal Normal mg/dL pH UA 6.0 5.0 - 8.0 Blood UA Small (A) Negative mg/dL Ketones UA Negative Negative mg/dL Nitrite UA Negative Negative Leukocytes UA Negative Negative mcL Appearance UA Clear Clear Spec Paia UA 1.013 1.002 - 1.030 Color UA Yellow Yellow Culture Reflexed No Urinalysis Microscopic Exam Result Value Ref Range RBC UA 3 0 - 4 /HPF WBC UA 0 0 - 5 /HPF Basic Metabolic Panel (non-fasting) Result Value Ref Range Glucose Lvl 85 65 - 199 mg/dL BUN 7 (L) 8 - 18 mg/dL Creatinine 0.75 0.70 - 1.20 mg/dL Sodium 143 135 - 145 mmol/L Potassium 3.9 3.5 - 5.0 mmol/L Chloride 103 98 - 107 mmol/L CO2 26 22 - 31 mmol/L Anion Gap 14 5 - 15 mmol/L Calcium 10.0 8.5 - 10.5 mg/dL eGFR 103 >=60 mL/min/1.73 m?? eGFR 120 >=60 mL/min/1.73 m?? Hemogram Result Value Ref Range WBC 10.0 (H) 4.0 - 9.5 x10(3)/mcL RBC 4.70 4.00 - 5.21 x10(6)/mcL Hemoglobin 14.5 11.7 - 15.5 gm/dL Hematocrit 42.4 35.7 - 45.8 % MCV 90.2 82.6 - 94.4 fL MCH 30.9 27.1 - 32.0 pg MCHC 34.2 31.7 - 35.0 gm/dL Platelets 311 145 - 357 x10(3)/mcL RDWSD 40.9 37.0 - 46.0 fL RDWCV 12.5 11.5 - 14.1 % MPV 9.2 7.6 - 12.9 fL nRBC % Auto 0.0 % nRBC Abs Auto 0.000 0.000 - 0.000 x10(3)/mcL Differential, Automated Result Value Ref Range Neutrophils % 46.9 % Neutr Abs (ANC) 4.68 1.70 - 6.10 x10(3)/mcL Lymphocytes % 38.9 % Lymphocytes Abs 3.9 (H) 0.9 - 3.2 x10(3)/mcL Monocytes % 6.9 % Monocyte Abs 0.7 0.3 - 0.9 x10(3)/mcL Eosinophils % 6.1 % Eosinophils Abs 0.6 (H) 0.0 - 0.4 x10(3)/mcL Basophils % 0.9 % Basophils Abs 0.1 0.0 - 0.1 x10(3)/mcL Immature Gran % 0.30 % Saima Gran Abs 0.03 0.00 - 0.04 x10(3)/mcL Blue Tube HOLD Result Value Ref Range Blue Hold Sample in lab. - I have reviewed the imaging, which is significant for: CT Angiogram Carotids & [place] Final Result 4 mm outpouching of the right ophthalmic artery origin, question aneurysm versus infundibulum. Normal CTA neck. Thank you for letting us participate in the care of this patient. For questions regarding this report, please contact the number below. Head wo Contrast (Generic) Final Result No acute hemorrhage or mass effect. Thank you for letting us participate in the care of this patient. For questions regarding this report, please contact the number below. - I have reviewed the EKG, which is significant for: As above Assessment and Plan: MDM: In the ED patient does not complain of headache more than 2 out of 10. This resolved with Tylenol. Based on the fact that she has had multiple ED visits and worsening of her symptoms as well as perceived gait disturbance more so with tandem gait walking on her toes on my initial assessment I have ordered a CT CTA of her head to assess for intracranial pathology including posterior circulation abnormalities. She had the findings listed above which do not correspond to her symptoms. I spoke with Carmen Vang from the neurosurgery service about the findings on the patient's CTA. She reviewed these with her team and they recommend outpatient follow-up with neuro interventional radiology as well as neurology follow-up for the patient's nondescript symptoms but do not feel that there is any needfor intervention or further workup at this time based on the findings of her CTA. The patient subsequently was able to ambulate several times during the ED with steady gait. She has some resolution of her headache. She is comfortable with the plan to go home and follow-up with neuro interventional r adiology as well as neurology and patient basis. She will take Tylenol for headaches in the meantime. In the setting of syncope I considered: High Risk Features: 1. Age of the patient (elderly at greater risk) 2. Syncope during exertion 3. Family history of sudden The [place] Syncope Rule: 1. History of CHF 2. Hct<30 3. EKG abnormalities 4. Present SOB 5. SBP<90 [place] Syncope Criteria, ([facility] Emerg Med. 2005;47(5):455-6. Epub 2005Jun 20.): Cardiac arrhythmias/EKG abnormalities considered: 1. ACS: No ST changes 2. Tachy-faiza: No blocks 3. WPW: No delta wave 4. [place]: No RSR'; R-bundle appearance 5. HCM: No LVH; needle Qs/ T-wave inversions 6. Short/ Long QT: 300 < QTc < 500; no family hx 7. Arrhythmogenic Right Ventricular Dysplasia: No epsilon wave, no inverted Ts in anterior precordium Patient denied personal and family history of heart disease as well as family history of sudden cardiac . Syncope was nonexertional which is reassuring. She has been advised to seek medical careif she has another syncopal episode. I do not think that any further syncope workup needs to be done here as she is Alfredito been evaluated at another ED after having a syncopal episode and has not had another one since. She may need further outpatient workup including echocardiogram on an outpatient basis. This is been communicated to the patient who agrees. I spoke with the patient at length about the diagnostic uncertainty surrounding her symptoms as well as the possible next steps. While I do not feel that she is currently demonstrating emergent pathology necessitating further workup in the ED or admission to the hospital I am not sure what is causing her symptoms. We discussed a plan to manage her symptoms as well as discussed in depth return precautions so that she knows when she should contact health care provider in response to worrisome changes. All questions were answered for the patient prior to discharge. Return precautions were verbally discussed with the patient. The patient expressed understanding that they could come back to the ED at any time and agreed to the follow-up plan. Plan: - Discharge home - Follow up with PCP -Referral to neurology and neuro interventional radiology - Return precautions were discussed with the pt Mil Darby MD EM Resident, PGY-2 08/12/18 6:18 PM Mil Darby MD Resident 08/13/18 0209 Associated attestation - Nathaniel Venegas MD - 08/14/2018 1:04 PM EDT ED ATTENDING ATTESTATION NOTE The patient was seen in conjunction with Dr. Darby, the resident physician. I have independently performed the calixto portions of the history and physical exam. I have reviewed all diagnostic studies personally including labs showing an unremarkable CBC and electolytes, imaging studies showing no acute intracranial pathology and EKG showing SB with no acute ST or Tw abnormalities. I have discussed the details of the case with the resident and agree with the assessment and plan as described in theresident note above unless noted otherwise below. Brief Summary: 37 yo f who presents with a variety of somewhat non-specific symptoms of intermittent mild SCHNEIDER, fogginess, and unsteady gait. On my exam, she was non-toxic and well appearing. I foundno abnormalities on my independent neuro exam including CN 2-8 grossly intact; no VF deficits; normal motor/sensory exam and DTRs, normal MANUEL and normal gait. Her discs were sharp. Based on the history, physical exam, and CT scan I see nothing to suggest that this is due to meningitis, encephalitis, abscess temporal arteritis, a subarachnoid hemorrhage, IIH, or another acute intracranial emergency such as a subdural or epidural hematoma. As a result, I feel it is appropriate for this patient viraj discharged with precautions for which to return. I feel that the abnormality read on her CTA is an incidental finding not related to her current symptomatology. The patient was informed of our impression and current diagnosis. They were given an opportunity to have their questions answered. Theywere provided with relevant discharge instructions and recommendations with respect to need and timing of outpatient follow-up. documented in this encounter Miscellaneous Notes * Med Student Progress Note - Amira Oseguera - 08/12/2018 5:53 PM EDT ED NOTE Holly Mcnally is an 37 y.o. female who presents to the ED with: Chief Complaint Patient presents with ??? Dizziness I saw this patient 08/12/2018 at ~ 5:53 PM HPI Holly Mcnally is a 37 y.o. female with PMH significant for asthma, depression, anxiety, arthritis who presents to the Emergency Department with complaints of lightheadedness and headache. She has been lightheaded, tipsy, and off balance for 1-2 weeks. She describes feeling unsteady onher feet and having a pre syncopal episode 3 days ago while standing. She has also had daily headaches described as pain and pressure at her skull base with pulsating behind her L eye for the same duration as her lightheadedness symptoms. She has been taking 2 tabs of tylenol and 4 advil once or twice daily for her headaches which helps somewhat. She does have a history of migraines, but this headache is different. She reports some black spots in her vision today and endorses some intermittent nausea. She reports an episode of syncope w/ amnesia to the event on Saturday where she fell in the bathroom hitting her head on the floor and reports LOC x1 minute per her s/o who was present. However, she attributes this episode to a reaction to amoxicillin which she had from PCP for sinusitis. This episode was accompanied by burning in her hands, dizziness, and vomiting after she regained consciousness. She was seen in the ED at [facility] and received IV fluids, reports that she had hypotension there to 80/40. Her sx resolved within about 30 minutes. Denies any recent trauma preceding the onset of these symptoms and no new medications. Has had chronic sinusitis and cough since June. No recent fevers or chills. No vomiting except one episode onFriday as described above, no diarrhea, numbness, weakness, or tingling. She is sexually active with her , no contraception but had tubes tied. LMP was mid July. Social Lives in [facility] w/ and 2 children (7 and 4). Tobacco: 0.5ppd x20 years EtOH: none Recreational drugs: none Review of Symptoms: General: No fever, chills, malaise HEENT: No sore throat, +nasal congestion (not new) +headache +retroorbital pain Visual Acuity: L eye 20/20, R eye 20/15 Neck: No neck pain Pulm: No SOB, no hemoptysis +cough (not new) Card: No chest pain Abd: No abd pain, vomiting +nausea : No dysuria, urgency Skin: No rashes, wounds Neuro: No weakness, numbness +lightheadedness +balance problems MSK: No back pain, joint pain Psych: No confusion Physical Exam: Nursing notes and vitals were reviewed Most Recent Vitals: 08/12/18 1533 BP: 120/86 Pulse: 80 Resp: 18 Temp: 37 ??C (98.6 ??F) SpO2: 97% I have reviewed the vital signs, which demonstrate: normal vital signs General: Well appearing, mildly anxious, no acute distress HEENT: PERRLA, EOMI, moist mucous membranes, no teeth, anicteric/non injected sclera, oropharynx w/out erythema/exudate Neck: Supple, no midline ttp Pulm: mild scattered wheezes in L lower lung field, otherwise clear without crackles, normal WOB Cardiac: regular rate and rhythm, no murmurs/gallops Abd: soft, ND, non tender, no rebound/guarding Skin: No rashes or petechiae Neuro: A&O x 3, CN2-12 intact, 5/5 strength bilaterally in upper and lower extremities, normal kbayia-in-choa bilaterally, mild intention tremor close to target, intact heel to lambert bilaterally, slow gait, negative romberg w/out pronator drift. Moving all extremities appropriately and no focal deficits MSK: No lower extremity swelling or tenderness Psych: Normal mood, thought and affect ED Course: Medications, allergies and past medical history reviewed Labwork was reviewed by me: Recent Results (from the past 24 hour(s)) POCT urine Result Value Ref Range POC Urine HCG Negative Negative - Negative POC Control Internal Controls Acceptable Urinalysis with reflex Culture Result Value Ref Range Glucose UA Negative Negative mg/dL Protein UA Negative Negative mg/dL Bilirubin UA Negative Negative mg/dL Urobilinogen UA Normal Normal mg/dL pH UA 6.0 5.0 - 8.0 Blood UA Small (A) Negative mg/dL Ketones UA Negative Negative mg/dL Nitrite UA Negative Negative Leukocytes UA Negative Negative mcL Appearance UA Clear Clear Spec Paia UA 1.013 1.002 - 1.030 Color UA Yellow Yellow Culture Reflexed No Urinalysis Microscopic Exam Result Value Ref Range RBC UA 3 0 - 4 /HPF WBC UA 0 0 - 5 /HPF Basic Metabolic Panel (non-fasting) Result Value Ref Range Glucose Lvl 85 65 - 199 mg/dL BUN 7 (L) 8 - 18 mg/dL Creatinine 0.75 0.70 - 1.20 mg/dL Sodium 143 135 - 145 mmol/L Potassium 3.9 3.5 - 5.0 mmol/L Chloride 103 98 - 107 mmol/L CO2 26 22 - 31 mmol/L Anion Gap 14 5 - 15 mmol/L Calcium 10.0 8.5 - 10.5 mg/dL eGFR 103 >=60 mL/min/1.73 m?? eGFR 120 >=60 mL/min/1.73 m?? Hemogram Result Value Ref Range WBC 10.0 (H) 4.0 - 9.5 x10(3)/mcL RBC 4.70 4.00 - 5.21 x10(6)/mcL Hemoglobin 14.5 11.7 - 15.5 gm/dL Hematocrit 42.4 35.7 - 45.8 % MCV 90.2 82.6 - 94.4 fL MCH 30.9 27.1 - 32.0 pg MCHC 34.2 31.7 - 35.0 gm/dL Platelets 311 145 - 357 x10(3)/mcL RDWSD 40.9 37.0 - 46.0 fL RDWCV 12.5 11.5 - 14.1 % MPV 9.2 7.6 - 12.9 fL nRBC % Auto 0.0 % nRBC Abs Auto 0.000 0.000 - 0.000 x10(3)/mcL Differential, Automated Result Value Ref Range Neutrophils % 46.9 % Neutr Abs (ANC) 4.68 1.70 - 6.10 x10(3)/mcL Lymphocytes % 38.9 % Lymphocytes Abs 3.9 (H) 0.9 - 3.2 x10(3)/mcL Monocytes % 6.9 % Monocyte Abs 0.7 0.3 - 0.9 x10(3)/mcL Eosinophils % 6.1 % Eosinophils Abs 0.6 (H) 0.0 - 0.4 x10(3)/mcL Basophils % 0.9 % Basophils Abs 0.1 0.0 - 0.1 x10(3)/mcL Immature Gran % 0.30 % Saima Gran Abs 0.03 0.00 - 0.04 x10(3)/mcL Blue Tube HOLD Result Value Ref Range Blue Hold Sample in lab. EKG was reviewed by me: Sinus bradycardia (59) with no acute ST or T wave changes Imaging EXAMINATION: CT ANGIOGRAM CAROTIDS AND [place] OF [place] ?? FINDINGS: CTA neck: Great vessel origins are widely patent. Subclavian arteries are normal. Bilateral common and internal carotid arteries are normal course and caliber. The vertebral arteries are normal. ?? CTA HEAD: 4 mm outpouching at the origin of the right ophthalmic artery. Probable infundibulum of the left ophthalmic artery origin. The MCAs, director of food and nutrition services, and ACAs are normal. Complete [place] of [place]. Intradural vertebral arteries, basilar artery, and hemorrhage branches are normal... ?? IMPRESSION 4 mm outpouching of the right ophthalmic artery origin, question aneurysm versus Infundibulum. Normal CTA neck. ?? EXAMINATION: CT HEAD WO CONTRAST (GENERIC) ?? FINDINGS: No acute hemorrhage, mass, mass effect. The ventricles and extra axial spaces are normal. The calvarium and extra calvarial soft tissues are unremarkable. Bilateral maxillary sinus mucosal disease. ?? IMPRESSION No acute hemorrhage or mass effect. ?? MDM: Holly Mcnally is a 37 y.o. female who presents to the Emergency Department with complaints of new onset lightheadedness, feeling off balance, and headache x 2 weeks. Story is concerning for intracranial pathology such as Idiopathic Intracranial Hypertension but her neuro exam is non focal and optic disk margins were sharp on fundoscopic exam by attending. Other things to r/o are intracranial mass, aneurysm, cva. With 2 weeks of worsening symptoms and this being her 2nd ED visit will get CTH and angiogram to r/o these possibilities. Other etiologies to consider include atypical migraine headache, orthostatic hypotension, cardiac arrythmia. Normal EKG and BP while in the ED today. She does have a hx of migraine headaches. CTH was negative except for b/l maxillary sinus disease. 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 Visual acuity was normal. Consulted neurosurgery who recommended outpatient follow up with Neuro IR for further evaluation/management of this ophthalmic artery abnormality and referral to neurology for headaches. She was amenable to this plan. Return precautions were verbally discussed with the patient. The patient expressed understanding that they could come back to the ED at any time and agreed to the follow-up plan. Diagnosis: headache Plan: - Discharge home - please drink lots of fluids - outpatient referral to Neurology - outpatient referral to Neuro IR - Follow up with PCP within 1-2 days - Return Precautions discussed with patient Associated attestation - Nathaniel Venegas MD - 08/14/2018 1:05 PM EDT ED ATTENDING NOTE: This note was written by a medical student participating in this patient's care. The student's noteis reviewed for educational purposes. The medical student note is not used for clinical or billing purposes. My cosignature attests to my educational involvement with the student and is not an endorsement of the clinical validity of the note. * ED Triage - Wilfred Hu RN - 08/12/2018 12:53 PM EDT C/o migraine, dizziness, and fatigue since Saturday. Endorses nausea, denies VD. Denies SOB. Ambulating with steady gait. A+O, skin PWD. documented in this encounter Plan of Treatment Upcoming Encounters Date Type Department Care Team (Late st Contact Info) Description 01/01/2024 9:10 AM EDT Office Visit Orthopaedics at [place] [phone] Clinic, Dr Alfaro Team None 01/02/2024 11:10 AM [place] [address] Dennise Jaimes, [place] [address] 01/02/2024 2:00 PM EDT [place] [address] Dennise Jaimes, [place] [address] 01/10/2024 11:30 AM EDT [place] [address] Alma Delia Martinez MD [facility] [place] [address] Scheduled Referrals Name Type Priority Associated Diagnoses Order Schedule Referral to Neuro Interventional Radiology Outpatient Referral Routine Ordered: 08/12/2018 Referral to Neurology Outpatient Referral Routine Ordered: 08/12/2018 documented as of this encounter Procedures Procedure Name Priority Date/Time Associated Diagnosis Comments CT CAROTIDS AND [place] W CONTRAST STAT 08/12/2018 7:[address] HEAD WO CONTRAST (GENERIC) STAT 08/12/2018 7:57 PM EDT EKG 12-LEAD STAT 08/12/2018 4:19 PM EDT HEMOGRAM STAT 08/12/2018 3:45 PM EDT DIFFERENTIAL, AUTOMATED STAT 08/12/2018 3:45 PM EDT BLUE TUBE HOLD STAT 08/12/2018 3:45 PM EDT CBC (WITH DIFF) STAT 08/12/2018 3:45 PM EDT BASIC METABOLIC PANEL (NON-FASTING) STAT 08/12/2018 3:45 PM EDT URINALYSIS MICROSCOPIC EXAM STAT 08/12/2018 3:43 PM EDT URINALYSIS WITH REFLEX CULTURE STAT 08/12/2018 3:43 PM EDT POCT URINE STAT 08/12/2018 documented in this encounter Results * CT Angiogram Carotids & [place] of [place] (08/12/2018 7:57 PM EDT) Anatomical Region Laterality Modality Neck, Head Computed Tomogra phy Impressions 08/12/2018 8:40 PM EDT 4 mm outpouching of the right ophthalmic artery origin, question aneurysm versus infundibulum. Normal CTA neck. Thank you for letting us participate in the care of this patient. For questions regarding this report, please contact the number below. ? Narrative 08/12/2018 8:40 PM EDT EXAMINATION: CT ANGIOGRAM CAROTIDS AND [place] CLINICAL HISTORY: patient off balance, unable to perform tandem gait, slight right dysmetria with finger to nose, ?posterior circulation abnormality TECHNIQUE: CTA of the head and neck performed after the intravenous administration of 65 cc of Omnipaque 350. MIP and 3-D volumetric reconstructions were created. COMPARISON: None FINDINGS: CTA neck: Great vessel origins are widely patent. Subclavian arteries are normal. Bilateral common and internal carotid arteries are normal course and caliber. The vertebral arteries are normal. CTA HEAD: 4 mm outpouching at the origin of the right ophthalmic artery. Probable infundibulum of the left ophthalmic artery origin. The MCAs, director of food and nutrition services, and ACAs are normal. Complete [place] of [place]. Intradural vertebral arteries, basilar artery, and hemorrhage branches are normal... Procedure Note Mily De Anda MD - 08/12/2018 EXAMINATION: CT ANGIOGRAM CAROTIDS AND [place] CLINICAL HISTORY: patient off balance, unable to perform tandem gait,slight right dysmetria with finger to nose, ?posterior circulation abnormality TECHNIQUE: CTA of the head and neck performed after the intravenous administration of65 cc of Omnipaque 350. MIP and 3-D volumetric reconstructions were created. COMPARISON: None FINDINGS: CTA neck: Great vessel origins are widely patent. Subclavian arteriesare normal. Bilateral common and internal carotid arteries are normal courseand caliber. The vertebral arteries are normal. CTA HEAD: 4 mm outpouching at the origin of the right ophthalmic artery. Probable infundibulum of the left ophthalmic artery origin. The MCAs,director of food and nutrition services, and ACAs are normal. Complete [place] of [place]. Intradural vertebralarteries, basilar artery, and hemorrhage branches are normal... IMPRESSION 4 mm outpouching of the right ophthalmic artery origin, question aneurysmversus infundibulum. Normal CTA neck. Thank you for letting us participate in the care of this patient. Forquestions regarding this report, please contact the number below. Nathaniel Venegas MD [facility] ORDERABLES * CT Head wo Contrast (Generic) (08/12/2018 7:57 PM EDT) Anatomical Region Laterality Modality Head Computed Tomogra phy Impressions 08/12/2018 8:34 PM EDT No acute hemorrhage or mass effect. Thank you for letting us participate in the care of this patient. For questions regarding this report, please contact the number below. ? Narrative 08/12/2018 8:34 PM EDT EXAMINATION: CT HEAD WO CONTRAST (GENERIC) CLINICAL HISTORY: off balance, worsening headache TECHNIQUE: CT head performed without intravenous contrast administration. COMPARISON: None FINDINGS: No acute hemorrhage, mass, mass effect. The ventricles and extra axial spaces are normal. The calvarium and extra calvarial soft tissues are unremarkable. Bilateral maxillary sinus mucosal disease. Procedure Note Mily De Anda MD - 08/12/2018 EXAMINATION: CT HEAD WO CONTRAST (GENERIC) CLINICAL HISTORY: off balance, worsening headache TECHNIQUE: CT head performed without intravenous contrast administration. COMPARISON: None FINDINGS: No acute hemorrhage, mass, mass effect. The ventricles and extra axialspaces are normal. The calvarium and extra calvarial soft tissues areunremarkable. Bilateral maxillary sinus mucosal disease. IMPRESSION No acute hemorrhage or mass effect. Thank you for letting us participate in the care of this patient. Forquestions regarding this report, please contact the number below. Nathaniel Venegas MD IMG CT ORDERABLES * EKG 12 Lead (08/12/2018 4:19 PM EDT) Ventricular rate 59 BPM MUSE SYSTEM Atrial Rate 59 BPM MUSE SYSTEM P-R Interval 150 ms MUSE SYSTEM QRS Duration 84 ms MUSE SYSTEM Q-T Interval 394 ms MUSE SYSTEM QTC Calculated (Bezet) 390 ms MUSE SYSTEM Calculated P [place] 27 degrees MUSE SYSTEM Calculated R [place] 27 degrees MUSE SYSTEM Calculated T [place] 29 degrees MUSE SYSTEM INTERPRETATION Sinus bradycardia Otherwise normal ECG No previous ECGs available Confirmed by MD CHANDRIKA, DERREK ([id number]) on 08/12/2018 11:07:51 PM MUSE SYSTEM 08/12/2018 4:19 PM EDT 08/12/2018 11:07 PM EDT Nathaniel Venegas MD ECG ORDERABLES Performing Organization Address City/[facility]/ZIP Co de Phone Number MUSE SYSTEM * Blue Tube HOLD (08/12/2018 3:45 PM EDT) Pathologist [facility] Blue Hold Sample in lab. [facility] Blood specimen (specimen) Venous Draw / Unknown 08/12/2018 3:45 PM EDT 08/12/2018 4:15 PM EDT Mack Kirk MD HEMATOLOGY ORDERABLE S [facility] [place] [place] [address] * (ABNORMAL) Differential, Automated (08/12/2018 3:45 PM EDT) Pathologist [facility] Neutrophils % 46.9 % [facility] Neutr Abs (ANC) 4.68 1.70 - 6.10 x10(3)/mc L [facility] Lymphocytes % 38.9 % [facility] Lymphocytes Abs 3.9(H) 0.9 - 3.2 x10(3)/mc L [facility] Monocytes % 6.9 % [facility] Monocyte Abs 0.7 0.3 - 0.9 x10(3)/mc L [facility] Eosinophils % 6.1 % [facility] Eosinophils Abs 0.6(H) 0.0 - 0.4 x10(3)/[facility] Basophils % 0.9 % [facility] Basophils Abs 0.1 0.0 - 0.1 x10(3)/[facility] LABORATORY Immature Gran % 0.30 % [facility] Comment: Immature granulocytes(IG's)percentage and absolute count will include metamyelocytes, myelocytes, and promyelocytes. Blood smears from CBCs yielding IG's will be scanned manually for concordance. If this scan disagrees with the automated IG or if promyelocytes are noted, a manual differential will be performed. Saima Gran Abs 0.03 0.00 - 0.04 x10(3)/[facility] LAB[facility] Blood specimen (specimen) 08/12/2018 3:45 PM EDT 08/12/2018 4:15 PM EDT Narrative Resulting Agency Comment Spec In Lab Mack Kirk MD HEMATOLOGY ORDERABLE S [facility] [place] [address] * (ABNORMAL) Hemogram (08/12/2018 3:45 PM EDT) WBC 10.0(H) 4.0 - 9.5 x10(3)/[facility] RBC 4.70 4.00 - 5.21 x10(6)/[facility] Hemoglobin 14.5 11.7 - 15.5 gm/dL [facility] Hematocrit 42.4 35.7 - 45.8 % [facility] MCV 90.2 82.6 - 94.4 fL [facility] MCH 30.9 27.1 - 32.0 pg [facility] MCHC 34.2 31.7 - 35.0 gm/dL [facility] Platelets 311 145 - 357 x10(3)/[facility] RDWSD 40.9 37.0 - 46.0 [facility] RDWCV 12.5 11.5 - 14.1 % [facility] MPV 9.2 7.6 - 12.9 [facility] nRBC % Auto 0.0 % [facility] nRBC Abs Auto 0.000 0.000 - 0.000 x10(3)/[facility] Blood specimen (specimen) 08/12/2018 3:45 PM EDT 08/12/2018 4:15 PM EDT Narrative Resulting Agency Comment Spec In Lab Mack Kirk MD HEMATOLOGY ORDERABLE S [facility] [place] [address] * (ABNORMAL) Basic Metabolic Panel (non-fasting) (08/12/2018 3:45 PM EDT) Glucose Lvl 85 65 - 199 mg/dL [facility] Comment:Diabetes: >=200 mg/d L plus symptoms BUN 7(L) 8 - 18 mg/dL [facility] Creatinine 0.75 0.70 - 1.20 mg/dL [facility] Sodium 143 135 - 145 mmol/L [facility] Potassium 3.9 3.5 - 5.0 mmol/L [facility] Comment: Please note: ??Patients with WBC >100,000 may have falsely elevated Potassium levels. ??For accurate Potassium quantification in these patients send serum separator tube (gold top) for subsequent determinations. ??Contact the Clinical Chemistry Laboratory if there are any questions. Chloride 103 98 - 107 mmol/L [facility] CO2 26 22 - 31 mmol/L [facility] Anion Gap 14 5 - 15 mmol/L [facility] Calcium 10.0 8.5 - 10.5 mg/dL [facility] Estimated GFR 103 >=60 mL/min/1. 73 m?? [facility] Comment: The eGFR was calculated using the CKD-EPI equation. As with all creatinine based estimates of kidney function, eGFR values calculated with the CKD-EPI equation are not accurate in patients with acute kidney failure, extremes of body mass or the acutely ill. http://[facility] [place] eGFR 120 >=60 mL/min/1. 73 m?? [facility] Comment: The eGFR was calculated using the CKD-EPI equation. As with all creatinine based estimates of kidney function, eGFR values calculated with the CKD-EPI equation are not accurate in patients with acute kidney failure, extremes of body mass or the acutely ill. http://[facility] Blood specimen (specimen) 08/12/2018 3:45 PM EDT 08/12/2018 4:15 PM EDT Narrative Resulting Agency Comment Spec In Lab Nathaniel Venegas MD CHEMISTRY ORDERABLES [facility] [place] [address] * Urinalysis Microscopic Exam (08/12/2018 3:43 PM EDT) RBC UA 3 0 - 4 /HPF [facility] WBC UA 0 0 - 5 /HPF [facility] Urine specimen obtained by clean catch procedure (specimen) 08/12/2018 3:43 PM EDT 08/12/2018 4:18 PM EDT Narrative Resulting Agency Comment Spec In Lab Mack Kirk MD URINE ORDERABLES [facility] [place] [address] * (ABNORMAL) Urinalysis with reflex Culture (08/12/2018 3:43 PM EDT) Glucose UA Negative Negative mg/dL [facility] Protein UA Negative Negative mg/dL [facility] Bilirubin UA Negative Negative mg/dL [facility] Comment: Clinical correlation required for positive Urine Bilirubin results as false positive may occur with some drugs and drug related products. If a false positive is suspected a serum total bilirubin should be considered if clinically indicated. Urobilinogen UA Normal Normal mg/dL M [facility] pH UA 6.0 5.0 - 8.0 [facility] Blood UA Small(A) Negative mg/dL [facility] Ketones UA Negative Negative mg/dL [facility] Nitrite UA Negative Negative [facility] Leukocytes UA Negative Negative mcL MAR Y [facility] Appearance UA Clear Clear [facility] Spec Paia UA 1.013 1.002 - 1.030 [facility] Color UA Yellow Yellow [facility] Culture Reflexed No [facility] Urine specimen obtained by clean catch procedure (specimen) 08/12/2018 3:43 PM EDT 08/12/2018 4:18 PM EDT Narrative Resulting Agency Comment Spec In Lab Nathaniel Venegas MD URINE ORDERABLES [facility] [place] [address] * POCT urine (08/12/2018) POC Urine HCG Negative Negative - Negative POC Control Internal Controls Acceptable 08/12/2018 Nathaniel Venegas MD POINT OF CARE TEST O RDERABLES documented in this encounter Visit Diagnoses Diagnosis Dizziness Dizziness and giddiness documented in this encounter Administered Medications Inactive Administered Medications - up to 3 most recent administrations Medication Order MAR Action Action Date Dose Rate Site acetaminophen (TYLENOL) tablet 1,000 mg 1,000 mg, Oral, ONCE, 1 dose, On Sat08/12/18 at 1809, Maximum dose of acetaminophen is 4000 mg from all sources in 24 hours., STAT Given 08/12/2018 6:33 PM EDT 1,000 mg iohexol (OMNIPAQUE) 350 mg/mL solution 0-200 mL 0-200 mL, Intravenous, ONCE PRN, 1 dose, Starting on e 08/12/18 at 1944, Until Sat08/12/18 at 1945, Per Protocol, Warning Vesicant/Irritant Medication , Radiology Contrast, Routine Given 08/12/2018 7:45 PM EDT 120 mLs lactated Ringers 1,000 mL IV bolus at 2,000 mL/hr, Intravenous, ONCE, 1 dose, On Sat08/12/18 at 1856 New Bag 08/12/2018 6:56 PM EDT 2000 mL/hr documented in this encounter Active and Recently Administered Medications Due to Daylight Saving Time, this section may contain times in both EST and EDT. Scheduled Medication Order 08/10/2018 08/11/2018 08/12/2018 acetaminophen (TYLENOL) tablet 1,000 mg (COMPLETED) 1,000 mg, Oral, ONCE, 1 dose, On Sat08/12/18 at 1809, Maximum dose of acetaminophen is 4000 mg from all sources in 24 hours., STAT 1833 (Given - Provid er: Joan Palencia, NANYC) lactated Ringers 1,000 mL IV bolus (COMPLETED) at 2,000 mL/hr, Intravenous, ONCE, 1 dose, On e 08/12/18 at 1856 1856 (New Bag - Prov ider: Wilfred Hu RN)2103 (Stopped - Provider: Dianna Olivas NRP) sodium chloride 0.9% 500 mL IV bolus Intravenous, ONCE, 1 dose, On Sat08/12/18 at 1809 1903 (Not Given - Pr ovider: Joan Palencia RN - Reason: See comment - Comment: LR ordered) PRN Medication Order 08/10/2018 08/11/2018 08/12/2018 iohexol (OMNIPAQUE) 350 mg/mL solution 0-200 mL (COMPLETED) 0-200 mL, Intravenous, ONCE PRN, 1 dose, Starting on e 08/12/18 at 1944, Until Sat08/12/18 at 1945, Per Protocol, Warning Vesicant/Irritant Medication , Radiology Contrast, Routine 1944 (Given - Provid er: Jamal Brady) documented in this encounter Care Teams Jewel Stringer Relationship Specialty Start Date End Date Terri Thrasher APRN PCP - General Family Medicine 08/01/18 02/14/21 documented as of this encounter
--- OUTSIDE RECORDS SUMMARY | 2023-12-17 01:45 | XMS_ITS | Encounter Summary ---
Author Organization [facility] [place] [address] Care Team Providers Care [employer] Principal Name Role Phone Randell Haji MD Primary Care Provider Encounter Details Date Type Department Care Team (Late st Contact Info) Description 06/08/2016 Ancillary Procedure [place] [address] Eh Brunner PA [address] [place], [place] [id number] Social History Tobacco Use Types Packs/Day Years [...] 9:10 AM EDT Office [place] [address] Clinic, Dr Alfaro Team None 01/02/2024 11:10 AM [place] [address] Dennise Jaimes MACHINE [facility] [place] [address] 01/02/2024 2:00 PM EDT [place] [address] [place] [address] 01/10/2024 11:30 AM EDT Office [place] [address] Alma Delia Martinez MD [facility] [place] [address] documented as of this encounter Procedures Procedure Name Priority Date/Time Associated Diagnosis Comments FILM LIBRARY STORAGE ONLY DX WRIST Routine 06/08/2016 12:00 AM EST documented in this encounter Results * Film Library- Storage Only DX Wrist (06/08/2016 12:00 AM EST) Narrative RAD - 08/05/2018 2:05 PM EST This exam is for storage only and is auto-finalizing. Eh [facility] FILM LIBRARY ORD ERABLES [place], [place] documented in this encounter Visit Diagnoses Not on filedocumented in this encounter Care Teams [employer] Estate [employer] Principal Relationship Specialty Start Date End Date Randell Haji MD [address] [place] [phone] PCP - General 04/25/10 07/31/18 documented as of this encounter
--- OUTSIDE RECORDS SUMMARY | 2023-12-17 01:45 | XMS_ITS | Encounter Summary ---
Author Organization [facility] [place] [address] Care Team Providers Care Quality Assurance Advisor Name Role Phone Randell Haji MD Primary Care Provider [phone] Reason for Visit * Reason Comments Follow-up Encounter Details Date Type Department Care Team (Late st Contact Info) Description 02/27/2017 11:00 AM EDT Office Visit [place] [address] Shabana Romo SAFETY DEPOSIT CLERK [facility] [address] Chronic mastitis, unspecified laterality Social History Tobacco Use Types Packs/Day Years Used Date Smoking Tobacco: Every Day Comments:smokes 4-5 cig per day Sex and Gender Information Value Date Recorded Sex Assigned at Not on file Gender Identity Not on file Sexual Orientation Not on file documented as of this encounter Progress Notes * Shabana Romo APRN - 02/27/2017 11:00 AM EDT Ms. Mcnally is a 36 y.o. year-old patient who returns today to evaluate right breast pain in the faceof right gary ductal mastitis. Her pain has been present for several weeks and is in her lateral right breast and felt superiorly at 1200, radiating centrally. She had another episode of mastitis in October, successfully treated with Abx. She is trying to quit smoking,on the patch but she is still smoking, hoping to start wellbutrin. She is very frustrated and wants a mammogram. Worried that her mgm and mat aunt have breast cancer. Her mother has not had breast cancer. I met Holly in October of 2015 to discuss management of care home right gary ductal mastitis. On exam she had no sign of active infection and her imaging was normal. She is an active smoker andwas counseled about smoking cessation as it relates to gary ductal mastitis recurrance. (By way of history, about a year ago she developed fullness in her right breast which prompted her to apply pressure to her right nipple. She was able to express yellow discharge. She then developed a painful, red mass adjacent to the areolar. Over the course of the year she was treated off and on with antibiotics, I&D and warm compresses. When her symptoms did not improve she was referred toa surgeon ( Dr Tejada) who ( according to the pt) underwent right breast gary areolar excision ofthe infected tissue (?duct excision). Despite surgery her symptoms have not completely resolved and she has had several infections since surgery) Reproductive History:P2 , had her first child at the age of 31 and Did nurse her children. Menarche began at 14.Her LMP was 2 weeks ago. HRT/OC: none Family History: Negative for ovarian cancer. 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 She does smoke (she andher plan to quit). Past Medical History: Anxiety, depression, PTSD Past Surgical History: right breast WLE/?duct excision 2014 Physical Exam: She looks well and is in no apparent distress. Her skin is anicteric with good turgor. Sclera are anicteric. Her head and neck are without masses or adenopathy. Her arms have good ROM without any evidence of lymphedema. Her breasts are symmetric. Her nipples are everted. There is no axillary adenopathy on the right or the left. There are no skin changes or dimpling noted in either breast. The right breast is notable for generally homogenous breast tissue. Along the inferior edge of the areolar there is a well healed incision with slight tethering. Adjacent to that there are two pin holes,no drainage, erythema or fluctuance.The remainder of the breast tissue is soft,without masses. Her left breast exam is similar in character to her right breast,without discrete masses. Assessment: Clinical breast exam notable for fibrocystic breast tissue with history and physical findings consistent with gary ductal mastitis and two fistula tracts.. Quiescent today. Pain multifactoral: scar,hormonal, large breast size and musculoskeletal. May benefit from duct excision. No indication for breast imaging today. Plan: I have discussed my assessment and recommendations with Ms. Mcnally to include occasional self-breast exams and annual clinical breast exams. I will refer her to surgery to discuss duct excision. We discussed the role of smoking in the development and persistence of gary ductal mastitis. She understands that without smoking cessation, she has at least a 50% chance of have recurrent symptoms despite surgical intervention. This risk will drop to 10-20% if she does stop smoking. She does agree to speak with her mother about updates on her family history and that her mother could consider an appt with genetics. Ms. Mcnally agrees to this plan. Randell Haji MD documented in this encounter Plan of Treatment Upcoming Encounters Date Type Department Care Team (Late st Contact Info) Description 01/01/2024 9:10 AM EDT Office Visit Orthopaedics at [place] [phone] Clinic, Dr Alfaro Team None 01/02/2024 11:10 AM EDT Appointment MRI at [address] Dennise Jaimes APRN [facility] [place] [address] 01/02/2024 2:00 PM EDT Office [place] [address] [place] [address] 01/10/2024 11:30 AM EDT Office Visit Endocrinology at [place] [phone] Alma Delia Martinez MD [facility] [place] [address] documented as of this encounter Visit Diagnoses Diagnosis Chronic mastitis, unspecified laterality documented in this encounter Care Teams Quality Assurance Advisor Relationship Specialty Start Date End Date Randell Haji MD [address] [place] [phone] PCP - General 04/25/10 07/31/18 documented as of this encounter
--- OUTSIDE RECORDS SUMMARY | 2023-12-17 01:45 | XMS_ITS | Encounter Summary ---
Author Organization [facility] [place] [address] Care Team Providers Care Berry Grower Name Role Phone Nathen Duffy MD Primary Care Provider [phone] Reason for Visit * Reason Comments Breast Problem * Consultation (Routine) - Closed Specialty Diagnoses / Procedures Referred By Contac t Referred To Contact Hematology and Oncology Diagnoses Breast pain Nathen Duffy MD [address] [place] [phone] [facility] [address] [place] [address] Referral ID Status Reason Start Date Expiration Date Visits Re quested Visits Authorized [id number] Closed 09/15/2015 09/14/2016 1 1 Encounter Details Date Type Department Care Team (Late st Contact Info) Description 10/07/2015 11:00 AM EDT Office Visit [place] [phone] Shabana Romo, RAILROAD SHOP INSPECTOR [facility] [place] [address] Chronic mastitis of right breast Social History Tobacco Use Types Packs/Day Years Used Date Smoking Tobacco: Every Day Comments:smokes 4-5 cig per day Sex and Gender Information Value Date Recorded Sex Assigned at Not on file Gender Identity Not on file Sexual Orientation Not on file documented as of this encounter Last Filed Vital Signs Vital Sign Reading Time Taken Comments Blood Pressure 119/76 10/07/2015 10:28 AM EDT Pulse 79 10/07/2015 10:28 AM EDT Temperature - - Respiratory Rate 16 10/07/2015 10:28 AM EDT Oxygen Saturation 99% 10/07/2015 10:28 AM EDT Inhaled Oxygen Concentration - - Weight 103 kg (227 lb 1.2 oz) 10/07/2015 10:28 A M EDT Height 162.5 cm (5' 3.98) 10/07/2015 10:28 AM E DT Body Mass Index 39.01 10/07/2015 10:28 AM EDT documented in this encounter Progress Notes * Shabana Romo, RAILROAD SHOP INSPECTOR - 10/07/2015 12:45 PM EDT Ms. Mcnally is a 35 y.o. year-old patient who I am seeing at the request of Dr Denney to evaluate chronic right mastitis. By way of history, about a year ago she developed fullness in her right breast which prompted her to apply pressure to her right nipple. She was able to express yellow discharge. She then developed apainful, red mass adjacent to the areolar. Over the course of the year she was treated off and on with antibiotics, I&D and warm compresses. When her symptoms did not improve she was referred to a surgeon ( Dr Tejada) who ( according to the pt) underwent right breast gary areolar excision of the infected tissue (?duct excision). Despite surgery her symptoms have not resolved and she has had at least one infection since surgery,last time she was on antibiotics was a few weeks ago. She has never had breast imaging as part of her work up. She is scheduled for imaging at later today. Today she says that her breast is on the quiet side but she remains frustrated by the chronic and unpredictable nature of this problem. She still feels a lump near the scar. She denies any newskin changes, new breast masses, breast trauma or bloody nipple discharge. She does not have a history of cystic breast tissue and has not had cysts aspirated or breast biopsies in the past. She does occasional self-breast exams. Weight stable. She has no new or concerning complaints of fatigue, cardiovascular or respiratory symptoms. All other ROS are negative. Reproductive History:P2 , had her first child at the age of 31 and Did nurse her children. Menarche began at 14.Her LMP was 2 weeks ago. HRT/OC: none Family History: Negative for ovarian cancer. Positive for breast cancer: mgm in her 70's Social History: She is at home with her kids/disabled/PTSD/anxiety/depression. She does smoke (she and her plan to quit). Past Medical History: Anxiety, [...] with slight tethering. Adjacent to that there is fullness under the areolar.The remainder of the breast tissue is soft,without masses. Her left breast exam is similar in character to her right breast,without discrete masses. Assessment: Clinical breast exam notable for fibrocystic breast tissue with history and physical findings consistent with gary ductal mastitis. Quiescent today but will obtain imaging to rule out a possible undrained fluid collection and or a solid component. Plan: I have discussed my assessment and recommendations with Ms. Mcnally to include occasional self-breast exams and annual clinical breast exams. I will call her after her breast imaging which will be done later today to further evaluate findingon physical exam. Will have her outside mammogram reviewed at [facility]. Surgical follow up based on outcome of imaging. We discussed the role of smoking in the development and persistence of gary ductal mastitis. She understands that without smoking cessation, she has at least a 50% chance of have recurrent symptoms despite surgical intervention. This risk will drop to 10-20% if she does stop smoking. Ms. Mcnally agrees to this plan. NATHEN DUFFY MD documented in this encounter Plan of Treatment Upcoming Encounters Date Type Department Care Team (Late st Contact Info) Description 01/01/2024 9:10 AM EDT Office [place] [address] Clinic, Dr Alfaro Team None 01/02/2024 11:10 AM EDT Appointment MRI at [place] [address] Dennise Jaimes, RAILROAD SHOP INSPECTOR [facility] [place] [address] 01/02/2024 2:00 PM EDT Office Visit Neurosurgery at [place] [address] Dennise Jaimes, [place] [address] 01/10/2024 11:30 AM EDT Office [place] [address] Alma Delia Martinez MD [facility] [place] [address] documented as of this encounter Visit Diagnoses Diagnosis Chronic mastitis of right breast documented in this encounter Care Teams Berry Grower Relationship Specialty Start Date End Date Nathen Duffy MD [address] [place] [phone] PCP - General 04/25/10 07/31/18 documented as of this encounter
--- OUTSIDE RECORDS SUMMARY | 2023-12-17 01:45 | XMS_ITS | Encounter Summary ---
Author Organization Formerly [facility] [place] [address] Care Team Providers Care Music Therapy Specialist Name Role Phone Randell Haji MD Primary Care Provider [phone] Reason for Visit * Reason Onset Date Comments Follow-up 10/12/2015 Encounter Details Date Type Department Care Team (Late st Contact Info) Description 10/12/2015 Telephone [place] [address] Shabana Romo APRN [facility] [place] [address] Follow-up Social History Tobacco Use Types Packs/Day Years Used Date Smoking Tobacco: Every Day Comments:smokes 4-5 cig per day Sex and Gender Information Value Date Recorded Sex Assigned at Not on file Gender Identity Not on file Sexual Orientation Not on file documented as of this encounter Miscellaneous Notes * Telephone Encounter - Shabana Romo APRN - 10/12/2015 8:16 AM EDT I have made several calls to Holly to discuss follow up,without any success. I have left a message asking her to call me with any questions and have recommended PRN surgical follow up. She has my number and my business card should she wish to contact me. documented in this encounter Plan of Treatment Upcoming Encounters Date Type Department Care Team (Late st Contact Info) Description 01/01/2024 9:10 AM EDT Office [place] [address] Clinic, Dr Alfaro Team None 01/02/2024 11:10 AM EDT Appointment MRI at [place] [address] Dennise Jaimes, MEDIA RELATIONS ASSOCIATE [facility] [place] [address] 01/02/2024 2:00 PM EDT Office Visit Neurosurgery at [place] [address] Dennise Jaimes, [place] [address] 01/10/2024 11:30 AM EDT Office Visit Endocrinology at [place] [phone] Alma Delia Martinez MD [facility] [place] [address] documented as of this encounter Visit Diagnoses Not on filedocumented in this encounter Care Teams Music Therapy Specialist Relationship Specialty Start Date End Date Randell Haji MD [address] [place] [phone] PCP - General 04/25/10 07/31/18 documented as of this encounter
--- OUTSIDE RECORDS SUMMARY | 2023-12-17 01:45 | XMS_ITS | Encounter Summary ---
Author Organization [facility]ly [facility] [place] [address] Care Team Providers Care Service Parts Driver Name Role Phone Randell Haji MD Primary Care Provider [phone] Encounter Details Date Type Department Care Team (Late st Contact Info) Description 04/30/2018 Ancillary Procedure [place]iology [place] [phone] Terri Thrasher, PLANT PHYSIOLOGIST [address] [place] [address] Social History Tobacco Use Types Packs/Day Years [...] 9:10 AM EDT Office [place] [address] Clinic, Dr Alfaro Team None 01/02/2024 11:10 AM ED[place] [address] Dennise Jaimes APRN [facility] [place] [address] 01/02/2024 2:00 PM EDT Office [place] [address] Dennise [place] [address] 01/10/2024 11:30 AM EDT Office [place] [address] Alma Delia Martinez MD [facility] [place] [address] documented as of this encounter Procedures Procedure Name Priority Date/Time Associated Diagnosis Comments FILM LIBRARY STORAGE ONLY DX ANKLE Routine 04/30/2018 12:00 AM EST documented in this encounter Results * Film Library- Storage Only DX Ankle (04/30/2018 12:00 AM EST) Narrative RAD - 08/05/2018 2:00 PM EST This exam is for storage only and is auto-finalizing. Terri Thrasher APRN IMG FILM LIBRARY ORD ERABLES [place], [place] documented in this encounter Visit Diagnoses Not on filedocumented in this encounter Care Teams Service Parts Driver Relationship Specialty Start Date End Date Randell Haji MD [address] [place] [phone] PCP - General 04/25/10 07/31/18 documented as of this encounter
--- OUTSIDE RECORDS SUMMARY | 2023-12-17 01:45 | XMS_ITS | Encounter Summary ---
Author Organization [facility] [place] [address] Care Team Providers Care Container Repairer Name Role Phone Terri Thrasher NAMRATA Primary Care Provider + Encounter Details Date Type Department Care Team (Latest Contact Info) Description 08/12/2018 10:45 AM EDT - 08/12/2018 4:32 PM EDT Hospital Encounter XRay at [address] [place] [phone] Jaden Richter MD [facility] [place] [address] Left wrist pain Discharge Disposition: Home Social History Tobacco Use [...] 9:10 AM EDT Office [place] [address] Clinic, Dr Alfaro Team None 01/02/2024 11:10 AM [place] [address] [place] [address] 01/02/2024 2:00 PM EDT Office [place] [address] Dennise Jaimes APRN [facility] NEUROSURGERY [place], [place] [phone] 01/10/2024 11:30 AM EDT Office [place] [address] Alma Delia Martinez MD [facility] [place] [address] documented as of this encounter Procedures Procedure Name Priority Date/Time Associated Diagnosis Comments XR WRIST 3 VIEWS LEFT Routine 08/12/2018 11:25 AM EDT Left wrist pain documented in this encounter Results * XR Wrist Complete Min 3 views Left (Generic) (08/12/2018 11:25 AM EDT) Anatomical Region Laterality Modality Left Digital Radiogra phy Impressions 08/12/2018 1:28 PM EDT 1. ??No fracture seen. 2. ??Scapholunate interval at upper limits of normal. If concern for ligament injury remains high, consider additional radiographic view or cross-sectional imaging. Thank you for letting us participate in the care of this patient. For questions regarding this report, please contact the number below. ? Narrative 08/12/2018 1:28 PM EDT EXAMINATION: XR WRIST COMPLETE MIN 3 VIEWS LEFT (GENERIC) CLINICAL HISTORY: chronic left wrist pain, , ??entered by ordering service TECHNIQUE: 3 views left wrist COMPARISON: Radiographs June 08, 2016 FINDINGS: Bones: No fractures seen. Joints: Normal alignment and no dislocation. The scapholunate interval is at upper limits of normal, 3 mm. More prominent on today's exam than 2017. Soft tissues: Normal. Procedure Note Leena Parker MD - 08/12/2018 EXAMINATION: XR WRIST COMPLETE MIN 3 VIEWS LEFT (GENERIC) CLINICAL HISTORY: chronic left wrist pain, , entered by orderingservice TECHNIQUE: 3 views left wrist COMPARISON: Radiographs June 08, 2016 FINDINGS: Bones: No fractures seen. Joints: Normal alignment and no dislocation. The scapholunate interval is at upper limits of normal, 3 mm. Moreprominent on today's exam than 2017. Soft tissues: Normal. IMPRESSION 1. No fracture seen. 2. Scapholunate interval at upper limits of normal. If concern forligament injury remains high, consider additional radiographic view orcross-sectional imaging. Thank you for letting us participate in the care of this patient. Forquestions regarding this report, please contact the number below. Jaden Richter MD IMG DX ORDERABLES documented in this encounter Visit Diagnoses Diagnosis Left wrist pain Pain in joint, forearm documented in this encounter Care Teams Container Repairer Relationship Specialty Start Date End Date Terri Thrasher APRN PCP - General Family Medicine 08/01/18 02/14/21 documented as of this encounter
--- OUTSIDE RECORDS SUMMARY | 2023-12-17 01:45 | XMS_ITS | Encounter Summary ---
Author Organization [facility] [place] [address] Care Team Providers Care Dry Pan Operator Name Role Phone Terri Thrasher APRN Primary Care Provider + Encounter Details Date Type Department Care Team (Late st Contact Info) Description 08/06/2018 Ancillary Procedure [place] [address] Terri Thrasher, SENIOR SOLUTIONS ENGINEER [address] [place] [address] Social History Tobacco Use Types Packs/Day Years [...] 9:10 AM EDT Office [place] [address] Clinic, Dr Alfaro Team None 01/02/2024 11:10 [place] [address] [place] [address] 01/02/2024 2:00 PM EDT Office Visit Neurosurgery at [place] [phone] [place] [address] 01/10/2024 11:30 AM EDT Office [place] [address] Alma Delia Martinez MD [facility] [place] [address] documented as of this encounter Procedures Procedure Name Priority Date/Time Associated Diagnosis Comments FILM LIBRARY STORAGE ONLY MR ANKLE Routine 08/06/2018 12:00 AM EST documented in this encounter Results * Film Library- Storage Only MR Ankle (08/06/2018 12:00 AM EST) Narrative [facility] - 08/11/2018 3:05 AM EDT This exam is for storage only and is auto-finalizing. Terri Thrasher APRN Man[facility] FILM LIBRARY ORD ERABLES [place], [place] documented in this encounter Visit Diagnoses Not on filedocumented in this encounter Care Teams Dry Pan Operator Relationship Specialty Start Date End Date Terri Thrasher APRN PCP - General Family Medicine 08/01/18 02/14/21 documented as of this encounter
--- OUTSIDE RECORDS SUMMARY | 2023-12-17 01:45 | XMS_ITS | Encounter Summary ---
Author Organization [facility] [place] [address] Care Team Providers Care Pad Making Machine Operator Name Role Phone Randell Haji MD Primary Care Provider [phone] Encounter Details Date Type Department Care Team (Latest Contact Info) Description 10/07/2015 12:31 PM EDT - 10/07/2015 11:59 PM EDT Hospital [place] [address] Melissa Lehman MD [facility] [place] [address] Breast pain Discharge Disposition: Home Social History Tobacco [...] 9:10 AM EDT Office [place] [address] Clinic, Dr Alfaro Team None 01/02/2024 11:10 AM [place] [address] Dennise Jaimes APRN [facility] [place] [place] [address] 01/02/2024 2:00 PM EDT [place] [phone] [place] [address] 01/10/2024 11:30 AM EDT Office [place] [address] Alma Delia Martinez MD [facility] DR ENDOCRINOLOGY DEPT [place], [place] [phone] documented as of this encounter Procedures Procedure Name Priority Date/Time Associated Diagnosis Comments MAMMO 2D DIGITAL DIAG KENDELL WITH CAD BILATERAL Routine 10/07/2015 12:51 PM EDT Breast pain documented in this encounter Results * Mammo Diag Kendell Bilateral (10/07/2015 12:51 PM EDT) Anatomical Region [...] Melissa Lehman MD IMG MAMMO ORDERABLE S documented in this encounter Visit Diagnoses Diagnosis Breast pain Mastodynia documented in this encounter Care Teams Pad Making Machine Operator Relationship Specialty Start Date End Date Randell Haji MD [address] [place] [phone] PCP - General 04/25/10 07/31/18 documented as of this encounter
--- OUTSIDE RECORDS SUMMARY | 2023-12-17 01:45 | XMS_ITS | Encounter Summary ---
Author Organization [facility] Address [place] [address] Care Team Providers Care Bottom Loader Name Role Phone Terri Thrasher CAMPUS REP Primary Care Provider + Reason for Visit * Reason Comments Establish Care left wrist pain * Consultation (Routine) - Closed Specialty Diagnoses / Procedures Referred By Jesika maddox Referred To Contact Orthopaedics Diagnoses Achilles tendinitis, left leg LEFT ACHILLES TENDINITIS Terri Thrasher, CAMPUS REP [address] [place] [address] [facility] [address] [place] [phone] Referral ID Status Reason Start Date Expiration Date V isits Requested Visits Authorized [id number] Closed Consult, Test & Treat Connection Center 08/01/2018 08/01/2019 1 1 Encounter Details Date Type Department Care Team (Late st Contact Info) Description 08/12/2018 11:00 AM EDT Office Visit [place] [phone] Agatha Barragan PA [facility] [place] [address] Carpal tunnel syndrome on left Social History Tobacco Use Types Packs/Day Years [...] Reading Time Taken Comments Blood Pressure 118/70 08/12/2018 11:38 AM EDT Pulse 94 08/12/2018 11:38 AM EDT Temperature - - Respiratory Rate - - Oxygen Saturation - - Inhaled Oxygen Concentration - - Weight 98 kg (216 lb) 08/12/2018 11:38 AM EDT me asured Height 162.6 cm (5' 4) 08/12/2018 11:38 AM EDT verbal Body Mass Index 37.08 08/12/2018 11:38 AM EDT documented in this encounter Progress Notes * Agatha Barragan PA - 08/12/2018 11:00 AM EDT PATIENT NAME: Holly Mcnally AGE: 37 y.o. MR#: [id number] DATE OF VISIT: 08/12/2018 CHIEF COMPLAINT: New pt, left sided chronic wrist pain HISTORY OF PRESENT ILLNESS: Ms. Mcnally is a 37 y.o. female who comes into clinic today for evaluation of the left nondominant wrist. She reports that this pain has been present since high school with no known trauma though she does admit to a sprain of the ring and small finger during middle school in which she was placed in a wooden splint and wrap. She describes pain at the basilar joint as well as pain in the small through middle finger. She does experience some numbness and tingling into the middle through the small finger. This is most significant on wakening in the morning. 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 Past medical history: Patient Active Problem List Diagnosis Date Noted ??? Chronic mastitis of right breast 10/07/2015 Medications: No current outpatient medications on file. Allergies: Allergies Allergen Reactions ??? Asa Buff (Mag Carb-Al Glyc) [Aspirin, Buffered] Anxiety ??? Codeine Nausea Only ??? Nsaids (Non-Steroidal Anti-Inflammatory Drug) Palpitations Social history: Social History Tobacco Use ??? Smoking status: Current Every Day Smoker Packs/day: 0.50 Types: Cigarettes ??? Smokeless tobacco: Never Used ??? Tobacco comment: smokes 4-5 cig per day Substance Use Topics ??? Alcohol use: Never Frequency: Never Review of systems: No chest pain or shortness of breath No fevers, night sweats or chills Vital signs: Most Recent Vitals: 08/12/18 1138 BP: 118/70 Pulse: 94 Physical exam: Ms. Mcnally is a 37 y.o. female who is alert and oriented. She is in no acute discomfort and is resting comfortably in the exam room. Wrist extension: 75?? Wrist flexion: 80?? Radial deviation: 20?? Ulnar deviation: 30?? Palpation: Tenderness noted about the IP: No tenderness, swelling, bony enlargement DIP 2-5: No tenderness, swelling, bony enlargement PIP 2-5: No tenderness, swelling, bony enlargement MCP 2-5: No swelling, squeeze test results in no pain MCP 1, No swelling. Pain with palpation as well as with grind test Palmar fascia: No nodularity noted Flexor tendon: No localized tenderness over the A1 verena, no cyst formation Demonstrates ability to open and close hand smoothly Strength: Demonstrates ability to resist flexion and extension of MCP, PIP, DIP and isolation Call Center Operator strength: Comparable to contralateral side + tinnels at the wrist. Neuro: Median: pad of 2cd digit intact to sensation, finger PIP flexion, index DIP flexion; motor intact Radial: dorsal aspect of thenar eminence intact to sensation; thumb extension, motor intact Ulnar: pad of 5th, intact to sensation, finger abduction: motor intact Imaging studies: No fracture or dislocation noted.Moderate joint space narrowing of the basilar joint. 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 We had a long discussion regarding the nature of Holly Mcnally's chief complaint. We reviewed the imaging together which is described above. Clinically Holly Mcnally has good ROM however discomfortabout the basilar joint with palpation as well as with the grind test. She also has a positive Tinel's of the wrist. We discussed management with NSAIDs if she is able to take these, paraffin wax baths as well as splinting at night for the carpal tunnel. I have placed an order for a volar wrist splint. This plan was discussed with the patient and they are in agreement. All of the patient's questions were answered. The patient understand to contact us if they have any other questions or concerns. FU: TANYA Barragan PA-C The above dictation was made with voice recogonition software documented in this encounter Plan of Treatment Upcoming Encounters Date Type Department Care Team (Late st Contact Info) Description 01/01/2024 9:10 AM EDT Office Visit Orthopaedics at [place] [phone] Clinic, Dr Alfaro Team None 01/02/2024 11:10 AM EDT Appointment MRI at [place] [phone] Dennise Jaimes CAMPUS REP [facility] [place] [address] 01/02/2024 2:00 PM EDT Office Visit Neurosurgery at [place] [phone] Dennise Jaimes, CAMPUS REP [facility] [place] [address] 01/10/2024 11:30 AM EDT Office Visit Endocrinology at [place] [phone] Alma Delia Martinez MD [facility] [place] [address] documented as of this encounter Visit Diagnoses Diagnosis Carpal tunnel syndrome on left Carpal tunnel syndrome documented in this encounter Care Teams Bottom Loader Relationship Specialty Start Date End Date Terri Thrasher APRN PCP - General Family Medicine 08/01/18 02/14/21 documented as of this encounter
--- OUTSIDE RECORDS SUMMARY | 2023-12-17 01:45 | XMS_ITS | Encounter Summary ---
Author Organization [facility] [place] [address] Care Team Providers Care Web Development Instructor Name Role Phone Randell Haij MD Primary Care Provider [phone] Encounter Details Date Type Department Care Team (Late st Contact Info) Description 02/11/2017 Telephone [place] [address] Lola Kumar Social History Tobacco Use Types Packs/Day Years Used Date Smoking Tobacco: Every Day Comments:smokes 4-5 cig per day Sex and Gender Information Value Date Recorded Sex Assigned at Not on file Gender Identity Not on file Sexual Orientation Not on file documented as of this encounter Miscellaneous Notes * Telephone Encounter - Lola Kumar - 02/11/2017 2:20 PM EDT Today I left 2nd message requesting call back to schedule appt. documented in this encounter Plan of Treatment Upcoming Encounters Date Type Department Care Team (Late st Contact Info) Description 01/01/2024 9:10 AM EDT Office [place] [address] Clinic, Dr Alfaro Team None 01/02/2024 11:10 [place] [address] [place] [address] 01/02/2024 2:00 PM EDT [place] [address] Dennise Jaimes APRN [facility] [place] [address] 01/10/2024 11:30 AM EDT Office [place] [phone] Alma Delia Martinez MD [facility] DR [place] [address] documented as of this encounter Visit Diagnoses Not on filedocumented in this encounter Care Teams Web Development Instructor Relationship Specialty Start Date End Date Randell Haji MD [address] [place] [phone] PCP - General 04/25/10 07/31/18 documented as of this encounter
--- NOTE | 2023-12-17 11:32 | DI.RAD_ITS ---
Exam(s) XR LUMBAR SPINE COMPLETE EXAM: XR LUMBAR SPINE COMPLETE CLINICAL HISTORY: LOW BACK PAIN, M54.50. TECHNIQUE: 2D digital imaging was performed. Five views. COMPARISON: No exams were available for comparison FINDINGS: BONES: No fracture or destructive lesion. Vertebral body heights are maintained. Mild facet hypertro phy identified at L4-5 and L5-S1.. DISKS: Intervertebral disc spaces are maintained. Small endplate osteophytes. ALIGNMENT: Lumbar spinal alignment is within normal limits. SOFT TISSUE: Right upper quadrant surgical clips. Metallic densities are to related to hernia repair noted in the upper pelvis. IMPRESSION: Mild degenerative changes. DATA REPOSITORY: RADIATION DOSE DELIVERED:
== END ==
PROVIDERS: PCP Physician Assistant Medical; Visit Provider Physician Assistant Medical
DX: M54.6 Pain in thoracic spine (principal); M54.50 Low back pain, unspecified
CPT/HCPCS: 72072; 72110

== ENCOUNTER → 2024-01-06 02:22 | Outpatient (CLI) | payer MEDICARE, MEDICAID, SELFPAY ==
--- OUTSIDE RECORDS SUMMARY | 2024-01-06 02:34 | XMS_ITS | Data Portability ---
Author Organization [place] - [facility], MAIN OFFICE [place] [address] Assessment Encounter Date Assessment Date Assessment LastModified [...] recorded. Lab lipid panel, serum 2021 022 [facility] (Registration ), [address] [place] [address] , [place], [address], 05:00:44 homocystein e, serum or plasma 2021 022 [facility] (Registration ), [address] [place] [address] [place], [address], 3 05:00:44 lipoprotein (a), quant, serum 2021 [facility] (Registration ), [address] [place] [address] [place], [address], 3 05:00:44 HbA1c (hemoglobin A1c), blood 2021 [facility] (Registration ), [address] [place] [address] [place], [address], 3 05:00:44 vitamin D3, 25-hydroxy, serum 2021 [facility] (Registration ), [address] [place] [address] [place], [address], 3 05:00:44 vitamin B6 (pyridoxine ), plasma 2021 [facility] (Registration ), [address] [place] [address] [place], [address], 3 05:00:44 T3, free, serum or plasma 2021 [facility] (Registration ), [address] [place] [address] [place], [address], 3 05:00:44 TSH + free T4, serum 2021 [facility] (Registration ), [address] [place] [address] [place], [address], 3 05:00:44 CMP, serum or plasma 2021 [facility] (Registration ), [address] [place] [address] [place], [address], 3 05:00:44 vitamin B12 + folate, serum or blood 2021 022 [facility] (Registration ), [address] [place] [address] [place], [address], 3 05:00:44 iron + TIBC + ferritin, serum 2021 022 [facility] (Registration ), [address] [place] [address] [place], [address], 3 05:00:44 Referral None recorded. Procedures None recorded. Surgeries None recorded. Imaging None recorded. Medication Orders None recorded. Patient TargetsNo targets recorded. Patient Instructions Encounter Date Encounter Id Patient Instructions Last Modified By Organization Details Last Modified Time 11/22/2021 [id number] 1. neurotransmitter- testing with melatonin 300.00 2. pure-genomics b complex- 1 cap/day 3. bloodwork above sent to [facility]- 4. herbal anxiolytic will discuss after bloodwork- 5. pur gum as sub for regular gum- can be found at [email or web address] or sometimes [employer] 6. OX bile 1 cap with meals especially if fatty like hamburger or hotdog or eggs and dairy Not available 12/12/2021 16:31:39 12/27/2021 [id number] diarrhea: care instructions Not available 01/14/2022 18:35:38 1 try [facility] for finding healthier gum and continue to [...] disorder Active 11/23/19 22 Romi Eli ND [address] [place] [address], [place], [address] , [place] - [facility] [employer] [facility] 11/22/2021 13:37:53 Anxiety Active 11/23/19 Romi Eli ND [address] [place] [address], [place], [address] , formerly [facility] 11/22/2021 13:50:42 Hyperlipidemia Active 11/23/19 Romi Eli [address], [address] , [facility] 11/22/2021 13:51:07 Vitamin D deficiency Active 11/23/[address], [address] , [facility] 11/22/2021 13:55:38 Fatigue Active 11/23/[address], [address] , [facility] 11/22/2021 13:58:14 Numbness and tingling sensation of skin Active 11/23/[address], [address] , [facility] 11/22/2021 14:14:46 Loose stool Active 01/15/[address], [address] , [facility] 01/14/2022 17:50:44 Problem Notes None recorded. Medical Equipment None Reported. Allergies Allergen ID Allergen Name Allergen Category Reaction Reaction Severity Criticality Documentation Date Start Date Code Code System Note Provider Name and Address Organization Details Recorded Time 3822 amoxicill in medicatio n angioedem a severe high 11/22/2021 723 RxNorm passe d out, vomit ing, took to hospi gilberto- Romi [address], [address], [facility] 2 13:31:00 Medications Name Sig [...] Address Organization Details Last Updated DateTime 2 01902.9 2 g 34.4 kg/m2 160.02 cm 74 /min 90 mm[Hg] 60 mm[Hg] Romi Eli ND [address] [place] [address], [address], [facility] 2 13:28:34 Social History None recorded. Functional Status None recorded. Mental Status None recorded. Family History Nothing Reported. Medical History No medical history recorded. Gynecological HistoryNo gynecological history recorded. Obstetrics History GPAL:G 0 P 0 0 0 0 Past Encounters Encounter ID Performer Location Encounter Start Date Encounter Closed Date Diagnosis/Indication Diagnosis SNOMED-CT Code [id number] Romi Eli ND MAIN OFFICE [address] [place] [id number] 11/22/2021 13:20:10 12/12/2021 16:31:52 Anxiety 52984417 Hyperlipid emia screening 177988170 Family his tory of diabetes mellitus type 2 862790045 Vitamin D deficiency 347 70339 Fatigue 08322854 Numbness a nd tingling sensation of skin 942266816361 [id number] Romi Eli ND MAIN OFFICE [address] [place] [id number] 12/27/2021 12:42:29 01/14/2022 18:35:53 Anxiety 51360420 Loose stool 820963575 Health Concerns Section Related Observation LastModified by Organization Detai ls LastModified Time None Recorded Concern Status LastModified by Organization Details LastModified Time None Recorded Advance Directives Directive None Recorded Payers Encounter Date Sequence Insurance Name Policy Number Policy Brown Covered Member ID Brown Member ID Guarantor Name 11/22/2021 1 [facility] (MEDICAID) Holly Mcnally [id number] Holly Mcnally 12/27/2021 1 [facility] (MEDICAID) Holly Mcnally [id number] Holly Mcnally Notes Date Note Type Note [...] was 27 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
--- OUTSIDE RECORDS SUMMARY | 2024-01-06 02:34 | XMS_ITS | Encounter Summary ---
Author Organization [facility] [place] [address] Care Team Providers Care Urology Physician Assistant Name Role Phone Baron Hobson Primary Care Provider [phone] Encounter Details Date Type Department Care Team (Late st Contact Info) Description 07/02/2023 Telephone [place] [address] Darwin Noel MD [facility] [place] [address] Social History Tobacco Use Types Packs/Day Years [...] Miscellaneous Notes * Telephone Encounter - Darwin Noel MD - 07/02/2023 2:47 PM EST Return [...] Care Team (Late st Contact Info) Description 01/10/2024 11:30 AM EDT Office Visit Endocrinology at [address] Alma Delia Martinez MD [facility] [place] [address] 01/17/2024 11:50 AM EDT Appointment MRI at [place] [phone] Dennise Jaimes, [facility] [place] [address] 01/17/2024 1:40 PM EDT Office [place] [address] Dennise Jaimes, [facility] [place] [address] 02/26/2024 11:00 AM EDT Office Visit Orthopaedics at [place] [phone] Clinic, Dr Alfaro Team None documented as of this encounter Visit Diagnoses Not on filedocumented in this encounter Care Teams Urology Physician Assistant Relationship Specialty Start Date End Date Baron Hobson PA [address] [place] [address] PCP - General Family Medicine 02/01/23 documented as of this encounter
--- OUTSIDE RECORDS SUMMARY | 2024-01-06 02:34 | XMS_ITS | Encounter Summary ---
Author Organization [facility] Address [address] [place] [address] Care Team Providers Care Customer Assistance Representative Name Role Phone Randell Haji MD Primary Care Provider [phone] Encounter Details Date Type Department Care Team (Late st Contact Info) Description 06/16/2014 Results Only [facility] [place] Laboratory Services - [facility] [address] [place], [place] [address] Rachelle Hough MD [address] [place] [address] 2 [place], [place] [phone] Social History Tobacco Use Types Packs/Day Years [...] Info) Description 02/11/2024 13:15 EDT Office Visit [facility] [place] Psychiatry - [address] [phone] Shabana Cody MD MPH 111 [facility] [place], [address] [place] [phone] Laci Cheema MD [address] [place], [place] [address] documented as of this encounter Procedures Procedure [...] ? YOUNG, YUNG ? Accession #: ? [id number] ? : ? 1980 (Age: 33) ??F [...] Mary 06/17/2014 09:59 AM End of Report [facility] 06/16/2014 8:15 EST 06/17/2014 8:15 EST Rachelle Hough MD PATHOLOGY ORDERABLES Performing Organization Address City/State/[facility] Co de Phone Number [facility] [address] [place] [address] documented in this encounter Visit Diagnoses Not on filedocumented in this encounter Care Teams Customer Assistance Representative Relationship Specialty Start Date End Date Randell Haji MD [address] [place] [address] PCP - General 04/04/11 12/12/23 documented as of this encounter
--- OUTSIDE RECORDS SUMMARY | 2024-01-06 02:34 | XMS_ITS | Encounter Summary ---
Author Organization [facility] Address [address] [place] [address] Care Team Providers Care Rn Womens Health Name Role Phone Randell Haji MD Primary Care Provider [phone] Baron Hobson PA-C Primary Care Provider + Encounter Details Date Type Department Care Team (Late st Contact Info) Description 03/30/2021 Lab Requisition [facility] Pathology & Laboratory Medicine - [address] [id number] Outr Resulting Lab, Provider Social History Tobacco [...] Info) Description 02/11/2024 13:15 EDT Office Visit [facility] Psychiatry - [address] [place], [place] [address] October, Shabana Vera MD MPH [address] [facility], [place], [address] [place] [phone] Laci Cheema MD [address] [place], [place] [address] documented as of this encounter Procedures Procedure Name Priority Date/Time Associated Diagnosis Comments ZZCOVID-19 TEST [facility] PCR Today 03/29/2021 14:30 EDT COVID-19 TESTING Routine 03/29/2021 14:3 0 EDT documented in this encounter Results * COVID-19 TEST [facility] PCR (03/29/2021 14:30 EDT) Swab ENTIRE NASOPHARYNX / Unknown 03/29/2021 14:30 EDT 03/30/2021 17:18 EDT Provider Outr Resulting Lab MICROBIOLOGY - GENERAL ORDERABLES [facility] [address] [place] [address] * COVID-19 TESTING (03/29/2021 14:30 EDT) COVID-19 rt-PCR Result Negative Negative 03/31/2021 10:18 EDT [facility] Comment: This test has not [...] performed using the enoch SARS-CoV-2 assay ([employer] on the Enoch 6800 System Performing Lab Enoch 6800 [facility] 03/31/2021 10:18 EDT [facility] Swab 03/29/2021 14:3 0 EDT 03/30/2021 17:18 EDT Provider Outr Resulting Lab MICROBIOLOGY - GENERAL ORDERABLES [facility] [address] [place] [address] documented in this encounter Visit Diagnoses Not on filedocumented in this encounter Care Teams Rn Womens Health Relationship Specialty Start Date End Date Randell Haji MD [address] [place] [address] PCP - General 04/04/11 12/12/23 Baron Hobson PA-C [address] [place] [address] PCP - General 12/13/23 documented as of this encounter
--- OUTSIDE RECORDS SUMMARY | 2024-01-06 02:34 | XMS_ITS | Encounter Summary ---
Author Organization [facility] Address [address] [place] [address] Care Team Providers Care Director Ship Name Role Phone Randell Haji MD Primary Care Provider [phone] Encounter Details Date Type Department Care Team (Late st Contact Info) Description 03/25/[address] [facility] [phone] Cande Tejada MD [address] [place] [phone] Social History Tobacco Use Types Packs/Day [...] Description 02/11/2024 13:[address] [facility] Psychiatry - [address] [phone] October, Shabana Vera MD MPH [address] [facility] [address] [place] [phone] Laci Cheema MD [address] [place] [address] documented as of this encounter Procedures Procedure [...] ? YUNG DAY ? Accession #: ? [id number] ? : ? 1980 (Age: 34) ??F [...] lobulated adipose tissue. No masses are identified. Nitroglycerin Distributor sections are submitted as 1 and 2. Time removed from patient: 1010 hrs on 03/25/2015 Time in formalin: 1100 hrs on 03/25/2015 Time out of formalin: 1900 hrs on 03/28/2015 Ashwini Villa 03/28/2015 11:54 AM End of Report [facility] 03/25/2015 8:36 EDT 03/28/2015 8:36 EDT Cande Tejada MD PATHOLOGY ORDERABLES [facility] [address] [place] [address] documented in this encounter Visit Diagnoses Not on filedocumented in this encounter Care Teams Director Ship Relationship Specialty Start Date End Date Randell Haji MD [address] [place] [address] PCP - General 04/04/11 12/12/23 documented as of this encounter
--- OUTSIDE RECORDS SUMMARY | 2024-01-06 02:34 | XMS_ITS | Encounter Summary ---
Author Organization [facility] Address [address] [place] [address] Care Team Providers Care Nanotechnologist Name Role Phone Randell Haji MD Primary Care Provider [phone] Encounter Details Date Type Department Care Team (Late st Contact Info) Description 04/04/2011 - 04/04/2011 23:59 EDT Hospital Encounter [address] [address] Amira Steen MD [address] [place] [address] [address] [place] [phone] Social History Tobacco Use Types Packs/Day Years Used Date Smoking Tobacco: Never Assessed Sex and Gender Information Value Date Recorded Sex Assigned at Not on file Gender Identity Choose not to disclose 13:02 EDT Sexual Orientation Not on file documented as of this encounter Miscellaneous Notes * Scanned Note-Null - Configuration Analyst, Scan - 04/05/2011 1100 EDT documented in this encounter Plan of Treatment Upcoming Encounters Date Type Department Care Team (Late st Contact Info) Description 02/11/2024 13:15 EDT Office Visit [facility] Psychiatry - S [address] [address] Shabana Cody MD MPH 111 [facility] 4 [place] [phone] Laci Cheema MD [address] [place] [address] documented as of this encounter Visit Diagnoses Not on filedocumented in this encounter Care Teams Nanotechnologist Relationship Specialty Start Date End Date Randell Haji MD [address] [place], [place] [address] PCP - General 04/04/11 12/12/23 documented as of this encounter
--- OUTSIDE RECORDS SUMMARY | 2024-01-06 02:34 | XMS_ITS | Encounter Summary ---
Author Organization [facility] [place] [address] Care Team Providers Care Post Framer Name Role Phone aBron Hobson Primary Care Provider [phone] Encounter Details Date Type Department Care Team (Late st Contact Info) Description 02/01/2023 Transcribe Orders eDH Incoming Referrals [phone] Baron Hobson PA [address] [place] [address] Social History Tobacco Use Types [...] 11:30 AM EDT Office [place] [address] Alma Delia Martinez MD [facility] ENDOCRINOLOGY DEPT [place], [place] [id number] 01/17/2024 11:50 AM EDT [place] [phone] Dennise Jaimes APRN [facility] [place] [address] 01/17/2024 1:40 PM EDT Office [place] [address] Dennise Jaimes APRN [facility] [place] [address] 02/26/2024 11:00 AM EDT Office [place] [address] Clinic, Dr Alfaro Team None documented as of this encounter Visit Diagnoses Not on filedocumented in this encounter Care Teams Post Framer Relationship Specialty Start Date End Date Baron Hobson [address] [place] [address] PCP - General Family Medicine 02/01/23 documented as of this encounter
--- OUTSIDE RECORDS SUMMARY | 2024-01-06 02:34 | XMS_ITS | Encounter Summary ---
[place] [address] Care Team Providers Care Lace Roller Operator Name Role Phone Baron Hobson Primary Care Provider [phone]- [phone] Reason for Referral * Consultation (Routine) - Authorized Specialty Diagnoses / Procedures Referred By Jesika t Referred To Contact Orthopaedics Diagnoses Left knee pain, unspecified chronicity Baron Hobson PA [address] [place] [address] [facility] Orthopaedics [address] [place] [phone] Referral ID Status Reason Start Date Expiration Date Visits Requested Visits Authorized [id number] Authorized Second Opinion PCP Updated and/or Approved 02/01/2023 02/01/2024 12 12 Encounter Details Date Type Department Care Team (Latest Contact Info) Description 02/01/2023 Transcribe Orders eDH Incoming Referrals [phone] Baron Hobson PA [address] [place], [place] [address] Left knee pain, unspecified chronicity Social History [...] 11:30 AM EDT Office Visit Endocrinology at [place] [phone] Alma Delia Martinez MD [facility] [place] [address] 01/17/2024 11:50 AM EDT Appointment MRI at [address] Dennise Jaimes, [facility] [place] [address] 01/17/2024 1:40 PM EDT Office [place] [address] Dennise Jaimes, [facility] [place] [address] 02/26/2024 11:00 AM EDT Office Visit Orthopaedics at [place] [phone] Clinic, Dr Alfaro Team None Scheduled Referrals Name Type Priority Associated Diagnoses Orde r Schedule Referral to Orthopaedics Outpatient Referral Routine Left knee pain, unspecified chronicity Ordered: 02/01/2023 documented as of this encounter Visit Diagnoses Diagnosis Left knee pain, unspecified chronicity documented in this encounter Care Teams Lace Roller Operator Relationship Specialty Start Date End Date Baron Hobson PA [address] [place] [address] PCP - General Family Medicine 02/01/23 documented as of this encounter
--- OUTSIDE RECORDS SUMMARY | 2024-01-06 02:34 | XMS_ITS | Encounter Summary ---
Author Organization [facility] Address [address] [place] [address] Care Team Providers Care Machine Operator Hop Worker Name Role Phone Randell Haji MD Primary Care Provider [phone] Baron Hobson PA-C Primary Care Provider + Encounter Details Date Type Department Care Team (Late st Contact Info) Description 08/14/2021 Lab Requisition [facility] Pathology & Laboratory Medicine - [address] [address] Outr Resulting Lab, Provider Social History Tobacco [...] Info) Description 02/11/2024 13:15 EDT Office Visit [facility] Psychiatry - [address] [place] [address] [place], [place] [address] Shabana Cody MD MPH 111 [facility], Level [address] [place] [phone] Laci Cheema MD [address] [place], [place] [address] documented as of this encounter Procedures Procedure Name Priority Date/Time Associated Diagnosis Comments HIV 1/2 ANTIGEN AND ANTIBODY, 4TH GENERATION Routine 08/14/2021 9:35 EDT documented in this encounter Results * HIV 1/2 ANTIGEN AND ANTIBODY, 4TH GENERATION (08/14/2021 9:35 EDT) HIV 1 and 2 Antibody/p24 Antigen, 4th Generation Negative Negative 08/15/2021 9:26 EDT [facility] Comment:If acute HIV-1 infec tion is suspected in a high risk patient, submit plasma specimen for HIV-1 RNA quantitation test. Blood VENOUS BLOOD / Unknown 08/14/2021 9:35 EDT 08/14/2021 17:02 EDT Narrative [facility] - 08/15/2021 9:26 EDT Fourth Generation assay performed on the [employer] XPT. Provider Outr Resulting Lab IMMUNOLOGY A ND SEROLOGY ORDERABLES [facility] [address] [place] [address] documented in this encounter Visit Diagnoses Not on filedocumented in this encounter Care Teams Machine Operator Hop Worker Relationship Specialty Start Date End Date Randell Haji MD [address] [place] [address] PCP - General 04/04/11 12/12/23 Baron Hobson PA-C [address] [place] [address] PCP - General 12/13/23 documented as of this encounter
--- OUTSIDE RECORDS SUMMARY | 2024-01-06 02:34 | XMS_ITS | Encounter Summary ---
Author Organization [facility] [place] [address] Care Team Providers Care Aeronautical Drafter Name Role Phone Baron Hobson Primary Care Provider [phone]- [phone] Encounter Details Date Type Department Care Team (Late st Contact Info) Description 11/08/2023 Telephone [place] [address] Bindu Tamayo RN Social History Tobacco Use [...] 11:30 AM EDT Office [place] [address] Alma Delia Martinez MD [facility] [place] [address] 01/17/2024 11:50 AM EDT Appointment MRI at [address]1000 Dennise Jaimes [facility] [address] 01/17/2024 1:40 PM EDT Office Visit Neurosurgery at [address]1000 Dennise Jaimes STEEL LOADER [facility] [place] [address] 02/26/2024 11:00 AM EDT Office Visit Orthopaedics at [place] [phone] Clinic, Dr Alfaro Team None documented as of this encounter Visit Diagnoses Not on filedocumented in this encounter Care Teams Aeronautical Drafter Relationship Specialty Start Date End Date Baron Hobson PA [address] [place] [address] PCP - General Family Medicine 02/01/23 documented as of this encounter
--- OUTSIDE RECORDS SUMMARY | 2024-01-06 02:34 | XMS_ITS | Encounter Summary ---
Author Organization [facility] Address [address] [place] [address] Care Team Providers Care Warehouse Director Name Role Phone Randell Haji MD Primary Care Provider [phone] Encounter Details Date Type Department Care Team (Late st Contact Info) Description 06/10/2014 Results Only [facility] Laboratory Services - [facility] [address] [place], [place] [address] Rachelle Hough MD [address] [place] [address] 2 [place], [place] [id number] Social History Tobacco Use Types Packs/Day Years [...] [facility] Psychiatry - [address] 251751 Shabana Cody MD MPH 111 [facility], Level [address] [place] [phone] Laci Cheema MD [address] [place], [place] [address] documented as of this encounter Procedures Procedure [...] types 16,18,31,33,35, 39,45,51,52,56,58, 59,66, and 68 by hooker inspector mediated amplification. Comments Document reviewed and electronically signed by: ? System Interface ? Report date: 06/21/2014 By the signature above, the attending physician certifies that he/she has personally conducted a gross and/or microscopic examination of the described specimens and rendered or confirmed the above diagnosis. End of Report [facility] 06/10/2014 06/14/2014 Rachelle Hough MD PATHOLOGY ORDERABLES Performing Organization Address City/State/[facility] Co de Phone Number [facility] [address] [place] [address] documented in this encounter Visit Diagnoses Not on filedocumented in this encounter Care Teams Warehouse Director Relationship Specialty Start Date End Date Randell Haji MD [address] [place] [address] PCP - General 04/04/11 12/12/23 documented as of this encounter
--- OUTSIDE RECORDS SUMMARY | 2024-01-06 02:34 | XMS_ITS | Encounter Summary ---
Author Organization [facility] [place] [address] Care Team Providers Care Oleomargarine Maker Name Role Phone Baron Hobson Primary Care Provider [phone] Reason for Referral * Physical Therapy (Routine) - Authorized Specialty Diagnoses / Procedures Referred By Contac t Referred To Contact Physical Therapy Diagnoses Patellofemoral arthritis of right knee Dmitriy Earl MD [facility] [place] [address] Referral ID Status Reason Start Date Expiration Date Visits Requested Visits Authorized [id number] Authorized Evaluate and Treat 08/14/2023 02/10/2024 12 12 Reason for Visit * Reason Comments Establish Care NXR LEFT KNEE PAIN NO INJURY 2ND OPINON * Consultation (Routine) - Authorized Specialty Diagnoses / Procedures Referred By Jesika maddox Referred To Contact Orthopaedics Diagnoses Left knee pain, unspecified chronicity Baron Hobson PA [address] [place] [address] [facility] [address] [place] [phone] Referral ID Status Reason Start Date Expiration Date Visits Requested Visits Authorized [id number] Authorized Second Opinion PCP Updated and/or Approved 02/01/2023 02/01/2024 12 12 Encounter Details Date Type Department Care Team (Latest Contact Info) Description 08/14/2023 10:40 AM EDT Office [place] [address] Clinic, Dr Youngblood Team None Patellofemoral arthritis [...] was referred from HIEN Sung [address] [place] [address] HISTORY OF PRESENT ILLNESS: Holly Mcnally who is a 42 y.o. female who has a history of approximately 3 years of right knee pain which started insidiously. She denies any inciting event. She states she noted more knee pain whenshe would walk about a half a mile to the [facility]. It is worse with excessive knee flexion [...] less than $25,000 # People Supported 4 Cypriot, , No, not Cypriot// Race White Health Literacy Extremely Currently working [...] IR Arteriogram Cerebral 10/07/2018 Eugenio Hernandez MD [facility] INTERVENTIONL RAD FAMILY HISTORY: Family history [...] future Dmitriy Earl MD 08/14/23 08/14/23 * Lul Youngblood MD - 08/14/2023 10:40 [...] 11:30 AM EDT Office [place] [address] Alma Delia Martinez MD [facility] [place] [address] 01/17/2024 11:50 [place] [address] Dennise Jaimes, MANAGER [employer] [facility] [place] [address] 01/17/2024 1:40 PM EDT [place] [address] Dennise Jaimes, [facility] [place] [address] 02/26/2024 11:00 AM EDT Office [place] [address] Clinic, Dr Youngblood Team None Scheduled Referrals Name Type Priority Associated Diagnoses Orde r Schedule Referral to Physical Therapy Outpatient Referral Routine Patellofemoral arthritis of right knee Ordered: 08/14/2023 documented as of this encounter Visit Diagnoses Diagnosis Patellofemoral arthritis of right knee documented in this encounter Care Teams Oleomargarine Maker Relationship Specialty Start Date End Date Baron Hobson PA [address] [place] [address] PCP - General Family Medicine 02/01/23 documented as of this encounter
--- OUTSIDE RECORDS SUMMARY | 2024-01-06 02:34 | XMS_ITS | Encounter Summary ---
Author Organization [facility] [place] [address] Care Team Providers Care Real Estate Valuer Name Role Phone Baron Hobson Primary Care Provider [phone]- [phone] Encounter Details Date Type Department Care Team (Late st Contact Info) Description 07/02/2023 Tele[place] [address] Darwin Noel MD [facility] [place] [address] Social History Tobacco Use Types Packs/Day Years [...] swallowing. Patient stated she [facility] to [facility] ED. documented in this encounter Plan of Treatment Upcoming Encounters Date Type Department Care Team (Late st Contact Info) Description 01/10/2024 11:30 AM EDT Office [place] [address] Alma Delia Martinez MD [facility] [place] [address] 01/17/2024 11:50 AM EDT Appointment MRI at [place] [phone] Dennise Jaimes, [facility] [place] [address] 01/17/2024 1:40 PM EDT Office Visit Neurosurgery at [place] [phone] Dennise Jaimes [facility] [place] [address] 02/26/2024 11:00 AM EDT Office [place] [address] Clinic, Dr Alfaro Team None documented as of this encounter Visit Diagnoses Not on filedocumented in this encounter Care Teams Real Estate Valuer Relationship Specialty Start Date End Date Baron Hobson PA [address] [place] [address] PCP - General Family Medicine 02/01/23 documented as of this encounter
--- OUTSIDE RECORDS SUMMARY | 2024-01-06 02:34 | XMS_ITS | Encounter Summary ---
Author Organization [facility] [place] [address] Care Team Providers Care Matrix Drier Tender Name Role Phone Baron Hobson Primary Care Provider [phone] Reason for Referral * Psychiatric (Routine) - Closed Specialty Diagnoses / Procedures Referred By Contac t Referred To Contact Psychiatry Diagnoses JODIE (generalized anxiety disorder) Post-traumatic stress disorder, unspecified Depression, unspecified depression type Baron Hobson PA [address] [place] [address] [facility] [address] [place] [phone] Referral ID Status Reason Start Date Expiration Date V isits Requested Visits Authorized [id number] Closed Consult, Test & Treat PCP Updated and/or Approved 02/01/2023 02/01/2024 6 6 Encounter Details Date Type Department Care Team (Latest Contact Info) Description 02/01/2023 Transcribe Orders eDH Incoming Referrals [phone] Baron Hobson PA [address] [place] [address] JODIE (generalized anxiety disorder); Post-traumatic [...] 11:30 AM EDT Office Visit Endocrinology at [place] [address] Alma Delia Martinez MD [facility] [place] [address] 01/17/2024 11:50 AM EDT Appointment MRI at [address]1000 Dennise Jaimes, [facility] [place] [address] 01/17/2024 1:40 PM EDT Office Visit Neurosurgery at [place] [address] Dennise Jaimes, [facility] [place] [address] 02/26/2024 11:00 AM EDT Office Visit Orthopaedics at [place] [address] Clinic, Dr Alfaro Team None Scheduled Referrals [...] type documented in this encounter Care Teams Matrix Drier Tender Relationship Specialty Start Date End Date Baron Hobson PA [address] [place] [address] PCP - General Family Medicine 02/01/23 documented as of this encounter
--- OUTSIDE RECORDS SUMMARY | 2024-01-06 02:34 | XMS_ITS | Clinical Summary ---
Author Organization [facility] Address [address] [place] [address] Care Team Providers Care Grievance And Appeals Specialist Name Role Phone Baron Hobson PA-C Primary Care Provider + Allergies No known active allergies Medications No known medications Encounters Date Type Department Care Team Description 11/13/2023 Lab Requisition [facility] Pathology & Laboratory Medicine - [address] [id number] Outr Resulting Lab, Provider from Last 3 [...] Info) Description 02/11/2024 13:15 EDT Office Visit [facility] Psychiatry - S [address] [address] Shabana Cody MD MPH 111 [facility] [place], Level [address] [place] [phone] Laci Cheema MD [address] [place], [place] [address] Health Maintenance Due Date Last Done Comments [...] Lyme Ab Negative Negative 11/14/2023 11:54 EDT [facility] Blood VENOUS BLOOD / Unknown 11/12/2023 12:15 EDT 11/13/2023 16:54 EDT Provider Outr Resulting Lab IMMUNOLOGY A ND SEROLOGY ORDERABLES Performing Organization Address City/[facility]/ZIP Co de Phone Number [facility] [address] [place] [address] * HEPATITIS C AB W REFLEX TO HCV RNA BY PCR (08/14/2021 9:35 EDT) Hep C Antibody Negative Negative 08/15/2021 9:58 EDT [facility] Blood VENOUS BLOOD / Unknown 08/14/2021 9:35 EDT 08/14/2021 17:03 EDT Provider Outr Resulting Lab CHEMISTRY & BLOOD GAS ORDERABLES [facility] [address] [place] [address] from Last 3 Months or Most Recently Relevant to Health Maintenance Care Teams Grievance And Appeals Specialist Relationship Specialty Start Date End Date Baron Hobson PA-C [address] [place] [phone] PCP - General 12/13/23
--- OUTSIDE RECORDS SUMMARY | 2024-01-06 02:34 | XMS_ITS | Encounter Summary ---
Author Organization [facility] Address [address] [place] [address] Care Team Providers Care Supply Aide Name Role Phone Randell Haji MD Primary Care Provider [phone] Baron Hobson PA-C Primary Care Provider + Encounter Details Date Type Department Care Team (Late st Contact Info) Description 11/13/2023 Lab Requisition [facility] Pathology & Laboratory Medicine - [address] [address] Outr Resulting Lab, Provider Social History Tobacco [...] Info) Description 02/11/2024 13:15 EDT Office Visit [facility] Psychiatry - [address] [place] [address] [place], [place] [address] Shabana Cody MD MPH 111 [facility] [place], Level 4 [place] [phone] Laci Cheema MD [address] [place], [place] [address] documented as of this encounter Procedures Procedure Name Priority Date/Time Associated Diagnosis Comments LYME AB Routine 11/12/2023 12:15 EDT documented in this encounter Results * LYME AB (11/12/2023 12:15 EDT) Lyme Ab Negative Negative 11/14/2023 11:54 EDT [facility] Blood VENOUS BLOOD / Unknown 11/12/2023 12:15 EDT 11/13/2023 16:54 EDT Provider Outr Resulting Lab IMMUNOLOGY A ND SEROLOGY ORDERABLES [facility] [address] [place] [address] documented in this encounter Visit Diagnoses Not on filedocumented in this encounter Care Teams Supply Aide Relationship Specialty Start Date End Date Randell Haji MD [address] [place] [address] PCP - General 04/04/11 12/12/23 Baron Hobson PA-C [address] [place] [address] PCP - General 12/13/23 documented as of this encounter
--- OUTSIDE RECORDS SUMMARY | 2024-01-06 02:34 | XMS_ITS | Encounter Summary ---
Author Organization [facility] [place] [address] Care Team Providers Care Semiconductor Bonder Name Role Phone Baron Hobson Primary Care Provider [phone] Encounter Details Date Type Department Care Team (Late st Contact Info) Description 11/08/2023 [place] [address] Bindu Tamayo RN Social History Tobacco Use [...] - 11/08/2023 10:02 AM EDT Copied from [facility] #[id number]. Topic: Specialty Dept CRMs - Triage >> [...] clinic at if possible. Please contact at [phone]. documented in this encounter Plan of Treatment Upcoming Encounters Date Type Department Care Team (Late st Contact Info) Description 01/10/2024 11:30 AM EDT Office Visit Endocrinology at [place] [phone] Alma Delia Martinez MD [facility] [place] [address] 01/17/2024 11:50 AM EDT Appointment MRI at [place] [phone] Dennise Jaimes, [facility] [place] [address] 01/17/2024 1:40 PM EDT Office Visit Neurosurgery at [address]1000 Dennise Jaimes, [facility] [place] [address] 02/26/2024 11:00 AM EDT Office Visit Orthopaedics at [place] [address] Clinic, Dr Alfaro Team None documented as of this encounter Visit Diagnoses Not on filedocumented in this encounter Care Teams Semiconductor Bonder Relationship Specialty Start Date End Date Baron Hobson PA [address] [place] [address] PCP - General Family Medicine 02/01/23 documented as of this encounter
--- OUTSIDE RECORDS SUMMARY | 2024-01-06 02:34 | XMS_ITS | Encounter Summary ---
Author Organization [facility] Address [address] [place] [address] Care Team Providers Care Chemical Packager Name Role Phone Randell Haji MD Primary Care Provider [phone] Baron Hobson PA-C Primary Care Provider + Encounter Details Date Type Department Care Team (Late st Contact Info) Description 06/19/2022 Lab Requisition [facility] Pathology & Laboratory Medicine - [address] [id number] Outr Resulting Lab, Provider Social History Tobacco [...] Info) Description 02/11/2024 13:15 EDT Office Visit [facility] Psychiatry - [address] [place], [place] [address] Shabana Cody MD MPH 111 [facility], [place], Level 4 [place] [phone] Laci Cheema MD [address] [place], [place] [address] documented as of this encounter Procedures Procedure Name Priority Date/Time Associated Diagnosis Comments T3, TOTAL Routine 06/19/2022 11:30 EST documented in this encounter Results * T3, TOTAL (06/19/2022 11:30 EST) T3, Total 160 97 - 169 ng/dL 06/19/2022 22:19 EST [facility] Blood VENOUS BLOOD / Unknown 06/19/2022 11:30 EST 06/19/2022 21:26 EST Provider Outr Resulting Lab CHEMISTRY & BLOOD GAS ORDERABLES [facility] [address] [place] [address] documented in this encounter Visit Diagnoses Not on filedocumented in this encounter Care Teams Chemical Packager Relationship Specialty Start Date End Date Randell Haji MD [address] [place] [address] PCP - General 04/04/11 12/12/23 Baron Hobson PA-C [address] [place] [address] PCP - General 12/13/23 documented as of this encounter
--- OUTSIDE RECORDS SUMMARY | 2024-01-06 02:34 | XMS_ITS | Encounter Summary ---
Author Organization [facility] [place] [address] Care Team Providers Care Manager Art Name Role Phone Baron Hobson Primary Care Provider [phone] Encounter Details Date Type Department Care Team (Late st Contact Info) Description 09/30/2023 [place] [phone] Eugenio Tee, RN Social History Tobacco Use [...] - 09/30/2023 9:33 AM EDT Copied from [facility] #[id number]. Topic: Specialty Dept CRMs - Generic Call >> Sep 30, 2023 8:52 AM Orquidea Nunez wrote: Specialist: Dennise Jaimes APRN Relationship (if other than patient-full name): Holly Mcnally Reason for Call: patient is scheduled for her annual follow up, on 01-02-24, is requesting medicationfor the MRI sedation and asking if a script can be sent to [facility], [address] [place] [address] , patient also has a question about WHEN to take the medication, pleasesend instructions through her [facility] portal, patient has someone driving her to this appointment. documented in this encounter Plan of Treatment Upcoming Encounters Date Type Department Care Team (Late st Contact Info) Description 01/10/2024 11:30 AM EDT Office Visit Endocrinology at [place] [phone] Alma Delia Martinez MD [facility] [place] [address] 01/17/2024 11:50 AM EDT Appointment MRI at [address] Dennise Jaimes, [facility] [place] [address] 01/17/2024 1:40 PM EDT Office Visit Neurosurgery at [address] Dennise Jaimes, [facility] [place] [address] 02/26/2024 11:00 AM EDT Office Visit Orthopaedics at [place] [phone] Clinic, Dr Alfaro Team None documented as of this encounter Visit Diagnoses Not on filedocumented in this encounter Care Teams Manager Art Relationship Specialty Start Date End Date Baron Hobson PA [address] [place] [address] PCP - General Family Medicine 02/01/23 documented as of this encounter
--- OUTSIDE RECORDS SUMMARY | 2024-01-06 02:34 | XMS_ITS | Encounter Summary ---
Author Organization [facility] Address [address] [place] [address] Care Team Providers Care Electric Motor Assembler Name Role Phone Randell Haji MD Primary Care Provider [phone] Baron Hobson PA-C Primary Care Provider + Encounter Details Date Type Department Care Team (Late st Contact Info) Description 01/10/2021 Lab Requisition [facility] Pathology & Laboratory Medicine - [address] [id number] Outr Resulting Lab, Provider Social History Tobacco [...] Info) Description 02/11/2024 13:15 EDT Office Visit [facility] Psychiatry - [address] [place], [place] [address] October, Shabana Vera MD MPH 111 [facility], [place], [address] [place] [phone] Laci Cheema MD [address] [place], [place] [address] documented as of this encounter Procedures Procedure Name Priority Date/Time Associated Diagnosis Comments ZZCOVID-19 TEST [facility] PCR Today 01/10/2021 14:30 EDT COVID-19 TESTING Routine 01/10/2021 14:3 0 EDT documented in this encounter Results * COVID-19 TEST [facility] PCR (01/10/2021 14:30 EDT) Swab ENTIRE NASOPHARYNX / Unknown 01/10/2021 14:30 EDT 01/11/2021 15:40 EDT Provider Outr Resulting Lab MICROBIOLOGY - GENERAL ORDERABLES [facility] [address] [place] [address] * COVID-19 TESTING (01/10/2021 14:30 EDT) COVID-19 rt-PCR Result Negative Negative 01/12/2021 12:23 EDT [facility] Comment: This test has [...] performed using the enoch SARS-CoV-2 assay ([employer] on the Enoch 6800 System Performing Lab Enoch 6800 [facility] 01/12/2021 12:23 EDT [facility] Swab 01/10/2021 14:3 0 EDT 01/11/2021 15:40 EDT Provider Outr Resulting Lab MICROBIOLOGY - GENERAL ORDERABLES [facility] [address] [place] [address] documented in this encounter Visit Diagnoses Not on filedocumented in this encounter Care Teams Electric Motor Assembler Relationship Specialty Start Date End Date Randell Haji MD [address] [place] [address] PCP - General 04/04/11 12/12/23 Baron Hobson PA-C [address] [place] [address] PCP - General 12/13/23 documented as of this encounter
--- OUTSIDE RECORDS SUMMARY | 2024-01-06 02:34 | XMS_ITS | Encounter Summary ---
Author Organization [facility] Address [address] [place] [address] Care Team Providers Care Drywall Stripper Helper Name Role Phone Unknown, Provider Primary Care Provider Encounter Details Date Type Department Care Team (Late st Contact Info) Description 03/15/2011 Results Only [facility] Laboratory Services - [facility] [address] [place], [place] [address] Rachelle Hough MD [address] [place] [address] 2 [place], [place] [phone] Social History Tobacco Use Types Packs/Day Years [...] Office Visit [facility] Psychiatry - [address] [address] May, Shabana Vera MD MPH 111 [facility], [address] [place] [phone] Laci Cheema MD [address] [place], [place] [address] documented as of this encounter Procedures Procedure [...] ? YOUNG, YUNG ? Accession #: ? [id number] : ? 1980 (Age: 30) ??F ?Collect [...] Hough MD PATHOLOGY ORDERABLES DESIREE MONTIEL [address] [place] [address] documented in this encounter Visit Diagnoses Not on filedocumented in this encounter Care Teams Drywall Stripper Helper Relationship Specialty Start Date End Date Unknown, Provider, PCP - General 07/06/09 04/03/11 documented as of this encounter
--- OUTSIDE RECORDS SUMMARY | 2024-01-06 02:34 | XMS_ITS | Encounter Summary ---
Author Organization [facility] Address [address] [place] [address] Care Team Providers Care Magazine Designer Name Role Phone Unknown, Provider Primary Care Provider Encounter Details Date Type Department Care Team (Late st Contact Info) Description 12/24/2003 Results Only [facility] [address] [place] [address] Saurav Barker, DRIVER'S LICENSE REVIEWING OFFICER Social History Tobacco Use Types Packs/Day Years [...] 13:15 EDT Office Visit [facility] Psychiatry - [address] [address] October, Shabana Vera MD MPH 111 [facility] Level [address] [place] [phone] Laci Cheema MD [address] [place], [place] [address] documented as of this encounter Procedures Procedure [...] ? YUNG MCNALLY ? Accession #: ? [id number] : ? 1980 (Age: 23) ??F ?Collect [...] APRN PATHOLOGY ORDER ANA DESIREE MONTIEL [address] [place] [address] documented in this encounter Visit Diagnoses Not on filedocumented in this encounter Care Teams Magazine Designer Relationship Specialty Start Date End Date Unknown, Provider, PCP - General 07/06/09 04/03/11 documented as of this encounter
--- OUTSIDE RECORDS SUMMARY | 2024-01-06 02:34 | XMS_ITS | Referral Summary ---
Author Organization [facility] Address [address] [place] [address] Care Team Providers Care Baggagemaster Name Role Phone Baron Hobson PA-C Primary Care Provider + Encounters Date Type Department Care Team Description 11/13/2023 Lab Requisition [facility] Pathology & Laboratory Medicine - [address] [address] Outr Resulting Lab, Provider from Last 3 [...] Info) Description 02/11/2024 13:15 EDT Office Visit [facility] Psychiatry - [address] [address] Shabana Cody MD MPH 111 [facility] [place], Level [address] [place] [phone] Laci Cheema MD [address] [place] [address] Procedures Procedure Name Priority Date/Time Associated Diagnosis Comments LYME AB Routine 11/12/2023 12:15 EDT HEPATITIS C AB W REFLEX TO HCV RNA BY PCR Routine 08/14/2021 9:35 EDT from Last 3 Months or Most Recently Relevant to Health Maintenance Results * LYME AB (11/12/2023 12:15 EDT) Lyme Ab Negative Negative 11/14/2023 11:54 EDT [facility] Blood VENOUS BLOOD / Unknown 11/12/2023 12:15 EDT 11/13/2023 16:54 EDT Provider Outr Resulting Lab IMMUNOLOGY A ND SEROLOGY ORDERABLES Performing Organization Address [facility]/ZIP Co de Phone Number [facility] [address] [place] [address] * HEPATITIS C AB W REFLEX TO HCV RNA BY PCR (08/14/2021 9:35 EDT) Hep C Antibody Negative Negative 08/15/2021 9:58 EDT [facility] Blood VENOUS BLOOD / Unknown 08/14/2021 9:35 EDT 08/14/2021 17:03 EDT Provider Outr Resulting Lab CHEMISTRY & BLOOD GAS ORDERABLES Performing Organization Address [facility]/ZIP Co de Phone Number [facility] [address] [place] [address] from Last 3 Months or Most Recently Relevant to Health Maintenance Care Teams Baggagemaster Relationship Specialty Start Date End Date Baron Hobson PA-C [address] [place] [phone] PCP - General 12/13/23
--- OUTSIDE RECORDS SUMMARY | 2024-01-06 02:34 | XMS_ITS | Encounter Summary ---
Author Organization [facility] [place] [address] Care Team Providers Care Farm Reporter Name Role Phone Baron Hobson Primary Care Provider [phone] Encounter Details Date Type Department Care Team [...] 11:30 AM EDT Office [place] [phone] Al[place] Delia Martinez MD [facility] [place] [address] 01/17/2024 11:50 [place] [address] Dennise Jaimes APRN [facility] [place] [address] 01/17/2024 1:40 PM EDT [place] [phone] Dennise Jaimes APRN [facility] [place] [address] 02/26/2024 11:00 AM EDT Office [place] [phone] Clinic, Dr Alfaro Team None documented as of this encounter Visit Diagnoses Not on filedocumented in this encounter Care Teams Farm Reporter Relationship Specialty Start Date End Date Baron Hboson PA [address] [place] [address] PCP - General Family Medicine 02/01/23 documented as of this encounter
--- OUTSIDE RECORDS SUMMARY | 2024-01-06 02:34 | XMS_ITS | Encounter Summary ---
Author Organization [facility] Address [address] [place] [address] Care Team Providers Care Customer Service Cashier Name Role Phone Unknown, Provider Primary Care Provider [phone] Encounter Details Date Type Department Care Team (Late st Contact Info) Description 07/07/2009 7:41 EST - 07/07/2009 12:38 EST Hospital Encounter [facility] Perioperative Services- [address] [address] Ryan Thompson MD [address] [facility], [address] [place] [phone] Discharge Disposition: Discharged to Other Facility Social [...] back to [facility] 1038--Dr Thompson in to speak to pt. Pt not [...] Info) Description 02/11/2024 13:15 EDT Office Visit [facility] Psychiatry - [address] [place] [address] [place], [place] [address] October, Shabana Vera MD MPH 111 [facility], [address] [place] [phone] Laci Cheema MD 111 [place], [place] [address] documented as of this encounter Procedures Procedure [...] 07/07/2009 documented in this encounter Care Teams Customer Service Cashier Relationship Specialty Start Date End Date Unknown, Provider, PCP - General 07/06/09 04/03/11 documented as of this encounter
--- OUTSIDE RECORDS SUMMARY | 2024-01-06 02:34 | XMS_ITS | Encounter Summary ---
Author Organization [facility] Address [address] [place] [address] Care Team Providers Care Mending Carrier Name Role Phone Randell Haji MD Primary Care Provider [phone] Baron Hobson PA-C Primary Care Provider + Encounter Details Date Type Department Care Team (Late st Contact Info) Description 08/14/2021 Lab Requisition [facility] Pathology & Laboratory Medicine - [address] [address] Outr Resulting Lab, Provider Social History Tobacco [...] Info) Description 02/11/2024 13:15 EDT Office Visit [facility] Psychiatry - [address] [place] [address] [place], [place] [address] October, Shabana Vera MD MPH 111 [facility] [place], Level [address] [place] [phone] Laci Cheema MD [address] [place], [place] [address] documented as of this encounter Procedures Procedure Name Priority Date/Time Associated Diagnosis Comments HEPATITIS C AB W REFLEX TO HCV RNA BY PCR Routine 08/14/2021 9:35 EDT documented in this encounter Results * HEPATITIS C AB W REFLEX TO HCV RNA BY PCR (08/14/2021 9:35 EDT) Hep C Antibody Negative Negative 08/15/2021 9:58 EDT [facility] Blood VENOUS BLOOD / Unknown 08/14/2021 9:35 EDT 08/14/2021 17:03 EDT Provider Outr Resulting Lab CHEMISTRY & BLOOD GAS ORDERABLES [facility] [address] [place] [address] documented in this encounter Visit Diagnoses Not on filedocumented in this encounter Care Teams Mending Carrier Relationship Specialty Start Date End Date Randell Haji MD [address] [place] [address] PCP - General 04/04/11 12/12/23 Baron Hobson PA-C [address] [place] [address] PCP - General 12/13/23 documented as of this encounter
--- OUTSIDE RECORDS SUMMARY | 2024-01-06 02:34 | XMS_ITS | Encounter Summary ---
Author Organization [facility] Address [address] [place] [address] Care Team Providers Care Truck Cleaner Name Role Phone Randell Haji MD Primary Care Provider [phone] Baron Hobson PA-C Primary Care Provider + Encounter Details Date Type Department Care Team (Latest Contact Info) Description 10/12/2022 Lab Requisition [facility] Pathology & Laboratory Medicine - [facility] [address] [place] [address] Baron Hobson PA-C [address] [place] [address] Encounter for gynecological examination (general) (routine) without [...] Description 02/11/2024 13:15 EDT Office Visit [facility] Psychiatry - S [address] [address] October, Shabana Vera MD MPH 111 [facility] [place], Level [address] [place] [address] Laci Cheema MD [address] [place], [place] [address] documented as of this encounter Procedures Procedure [...] types, PCR Negative Negative 10/24/2022 16:42 EDT [facility] Comment:No E6 or E7 mRNA is detected from HPV types 16,18,31,33,35,39,45,51,52,56,58,59,66, and 68 by evp mediated amplification. Papanicolaou smear specimen (specimen) CERVIX UTERI STRUCTURE / Unknown 10/10/2022 14:30 EDT 10/23/2022 16:36 EDT Baron Hobson PA-C MICROBIOLOGY - G ENERAL ORDERABLES [facility] [address] [place] [address] * PAP TEST (10/10/2022 14:30 EDT) Specimens A. Cervix and/or Endocervix , ThinPrep Imaging System with Manual Evaluation 10/24/2022 16:42 EDT [facility] Specimen Adequacy Satisfactory for Evaluation - transformation zone component present 10/24/2022 16:42 EDT [facility] General Categorization Negative for intraepithelial lesion or malignancy 10/24/2022 16:42 EDT [facility] Descriptive Diagnosis Reactive cellular changes associated with inflammation present (includes repair). 10/24/2022 16:42 EDT [facility] Attestation By the signature below, the attending physician certifies that they have personally conducted a gross and/or microscopic examination of the described specimens and rendered or confirmed the above diagnosis. 10/24/2022 16:42 EDT [facility] at 1641 Clinical History See below 10/25/19 16:42 EDT [facility] HPV The result for the Human Papillomavirus (HPV) Detection-High Risk Types is Negative. No E6 or E7 mRNA is detected from HPV types 16,18,31,33,35,39 ,45,51,52,56,58,5 9,66, and 68 by evp mediated amplification.Santa ting was performed on specimen [id number] and was resulted on 10/24/2022 1641 EDT by SARA, LAB INSTRUMENT RESULTS IN 10/24/2022 16:42 EDT [facility] Performing Lab [facility] 10/24/2022 16:42 EDT [facility] Scanned Images 10/24/2022 16:42 EDT [facility] Papanicolaou smear specimen (specimen) CERVIX UTERI STRUCTURE / Unknown 10/10/2022 14:30 EDT 10/12/2022 12:37 EDT Baron Hobson PA-C PATHOLOGY ORDERA JACQUELINE [facility] [address] [place] [address] documented in this encounter Visit Diagnoses Diagnosis Encounter for gynecological examination (general) (routine) without abnormal findings documented in this encounter Care Teams Truck Cleaner Relationship Specialty Start Date End Date Randell Haji MD [address] [place] [address] PCP - General 04/04/11 12/12/23 Baron Hobson PA-C [address] [place] [address] PCP - General 12/13/23 documented as of this encounter
--- OUTSIDE RECORDS SUMMARY | 2024-01-06 02:34 | XMS_ITS | Encounter Summary ---
Author Organization [facility] Address [address] [place] [address] Care Team Providers Care Safety Sitter Name Role Phone Randell Haji MD Primary Care Provider [phone] Encounter Details Date Type Department Care Team (Latest Contact Info) Description 03/25/2015 9:52 EDT - 03/25/2015 23:59 EDT Hospital Encounter [address] [address] Unknown, Provider, Discharge Disposition: Home or Self Care Social History Tobacco Use Types Packs/Day Years Used Date Smoking Tobacco: Never Assessed Sex and Gender Information Value Date Recorded Sex Assigned at Not on file Gender Identity Choose not to disclose 13:02 EDT Sexual Orientation Not on file documented as of this encounter Discharge Disposition Disposition Code Departure Means Destination Home or Self Assisted documented in this encounter Plan of Treatment Upcoming Encounters Date Type Department Care Team (Late st Contact Info) Description 02/11/2024 13:15 EDT Office Visit [facility] Psychiatry [address] [address] May, Shabana Vera MD MPH 111 [facility] [place], [address] [place] [address] Laci Cheema MD [address] [place] [address] documented as of this encounter Visit Diagnoses Not on filedocumented in this encounter Care Teams Safety Sitter Relationship Specialty Start Date End Date Randell Haji MD [address] [place] [address] PCP - General 04/04/11 12/12/23 documented as of this encounter
--- OUTSIDE RECORDS SUMMARY | 2024-01-06 02:34 | XMS_ITS | Encounter Summary ---
Author Organization [facility] Address [address] [place] [address] Care Team Providers Care Clinical Editor Name Role Phone Randell Haji MD Primary Care Provider [phone] Baron Hobson PA-C Primary Care Provider + Encounter Details Date Type Department Care Team (Late st Contact Info) Description 10/26/2021 Lab Requisition [facility] Pathology & Laboratory Medicine - [address] [id number] Outr Resulting Lab, Provider Social History Tobacco [...] Info) Description 02/11/2024 13:15 EDT Office Visit [facility] Psychiatry - [address] [place], [place] [address] Shabana Cody MD MPH 111 [facility], [place], [address] [place] [phone] Laci Cheema MD [address] [place], [place] [address] documented as of this encounter Procedures Procedure Name Priority Date/Time Associated Diagnosis Comments RHEUMATOID FACTOR Routine 10/26/2021 11: 35 EDT HIGH SENSITIVITY C-REACTIVE PROTEIN (CARDIOVASCULAR DISEASE) Routine 10/26/2021 11:35 EDT ANTI NUCLEAR AB (UZIEL), IFA Routine 10/26/2021 11:35 EDT documented in this encounter Results * RHEUMATOID FACTOR (10/26/2021 11:35 EDT) [facility] Rheumatoid Factor <8.6 <12.0 IU/mL 10/26/2021 21:56 EDT [facility] Blood VENOUS BLOOD / Unknown 10/26/2021 11:35 EDT 10/26/2021 21:35 EDT Provider Outr Resulting Lab CHEMISTRY & BLOOD GAS ORDERABLES Performing Organization Address [facility] Co de Phone Number [facility] [address] [place] [address] * ANTI NUCLEAR AB (UZIEL), IFA (10/26/2021 11:35 EDT) [facility] UZIEL Interpretation Negative Negative 2021 14:10 EDT [facility] Comment: Cytoplasmic Pattern Noted, Reticular/Mitochondrion-like No titer performed, UZIEL Screen is negative. Blood VENOUS BLOOD / Unknown 10/26/2021 11:35 EDT 10/26/2021 21:35 EDT Narrative [facility] - 10/27/2021 14:10 EDT Results were obtained with the INOVA NOVA Lite HEp-2 UZIEL Kit by indirect immunofluorescence. Provider Outr Resulting Lab IMMUNOLOGY A ND SEROLOGY ORDERABLES Performing Organization Address [facility] Co de Phone Number [facility] [address] [place] [address] * HIGH SENSITIVITY C-REACTIVE PROTEIN (CARDIOVASCULAR DISEASE) (10/26/2021 11:35 EDT) [facility] High Sensitivity CRP 1.64 See Note mg/L 10/26/2021 21:56 EDT [facility] Comment: Reference Range: ??Low Risk: ? <1.0 mg/L ??Average Risk: ?? 1.0 - 3.0 mg/L ??High Risk: ?>3.0 mg/L ??Indeterminate*: >10.0 mg/L ??*May be an indication of another source of inflammation or infection Blood VENOUS BLOOD / Unknown 10/26/2021 11:35 EDT 10/26/2021 21:35 EDT Provider Outr Resulting Lab CHEMISTRY & BLOOD GAS ORDERABLES [facility] [address] [place] [address] documented in this encounter Visit Diagnoses Not on filedocumented in this encounter Care Teams Clinical Editor Relationship Specialty Start Date End Date Randell Haji MD [address] [place] [address] PCP - General 04/04/11 12/12/23 Baron Hobson PA-C [address] [place] [address] PCP - General 12/13/23 documented as of this encounter
--- OUTSIDE RECORDS SUMMARY | 2024-01-06 02:34 | XMS_ITS | Encounter Summary ---
Author Organization [facility] Address [address] [place] [address] Care Team Providers Care Farm Machinery Mechanic Name Role Phone Randell Haji MD Primary Care Provider [phone] Baron Hobson PA-C Primary Care Provider + Encounter Details Date Type Department Care Team (Late st Contact Info) Description 07/26/2023 Lab Requisition [facility] Pathology & Laboratory Medicine - [address] [address] Outr Resulting Lab, Provider Social History Tobacco [...] Info) Description 02/11/2024 13:15 EDT Office Visit [facility] Psychiatry - [address] [place], [place] [address] Shabana Cody MD MPH 111 [facility], [place], [address] [place] [phone] Laci Cheema MD [address] [place], [place] [address] documented as of this encounter Procedures Procedure Name Priority Date/Time Associated Diagnosis Comments DEXAMETHASONE SUPPRESSION TEST Routine 07/26/2023 8:05 EST documented in this encounter Results * DEXAMETHASONE SUPPRESSION TEST (07/26/2023 8:05 EST) Dexamethasone Supp <1.0 See Note ug/dL 07/26/2023 18:13 EST [facility] Comment: Reference Range: >= 1.8 ug/dL = non-suppression < 1.8 ug/dL = suppression (normal) Blood VENOUS BLOOD / Unknown 07/26/2023 8:05 EST 07/26/2023 17:18 EST Narrative [facility] - 07/26/2023 18:13 EST The results of this assay can be falsely elevated due to the consumption of Biotin. Provider Outr Resulting Lab CHEMISTRY & BLOOD GAS ORDERABLES [facility] [address] [place] [address] documented in this encounter Visit Diagnoses Not on filedocumented in this encounter Care Teams Farm Machinery Mechanic Relationship Specialty Start Date End Date Randell Haji MD [address] [place] [address] PCP - General 04/04/11 12/12/23 Baron Hobson PA-C [address] [place] [address] PCP - General 12/13/23 documented as of this encounter
--- OUTSIDE RECORDS SUMMARY | 2024-01-06 02:34 | XMS_ITS | Clinical Summary ---
Author Organization [facility] Address [facility] [place] [address] Care Team Providers Care Construction Project Assistant Name Role Phone Baron Hobson Primary Care Provider [phone] Allergies Active Allergy Reactions Criticality Noted Date [...] repeat your MRA in 1 year at [facility]. Please feel free to call in the [...] Care Team Description 11/08/2023 [place] [address] Bindu Tamayo RN 11/08/2023 [place] [address] Bindu Tamayo RN from Last 3 Months Family History [...] 11:30 AM EDT Office [place] [address] Alma Delia Martinez MD [facility] [place] [address] 01/17/2024 11:50 [place] [address] Dennise Jaimes, [facility] [place] [address] 01/17/2024 1:40 PM EDT [place] [address] Dennise Jaimes, [facility] [place] [address] 02/26/2024 11:00 AM EDT Office [place] [address] Clinic, Dr Alfaro Team None Health Maintenance Due Date Last Done Comments [...] or Glucose) 2022 Covid-19 Vaccine ( - season) 2023 Influenza (Flu) vaccine (1 o f 1 - Influenza standard series) 02/02/2024 Procedures Procedure Name Priority Date/Time Associated Diagnosis Comments BASIC METABOLIC PANEL STAT 08/12/2018 3:45 PM EDT MAMMO 2D DIGITAL DIAG KENDELL WITH CAD BILATERAL Routine 10/07/2015 12:51 PM EDT Breast pain from Last 3 Months or Most Recently Relevant to Health Maintenance Results * (ABNORMAL) Basic Metabolic Panel (non-fasting) (08/12/2018 3:45 PM EDT) Glucose 85 65 - 199 mg/dL [facility] Comment:Diabetes: >=200 mg/d L plus symptoms Blood Urea Nitrogen 7(L) 8 - 18 mg/dL [facility] Creatinine 0.75 0.70 - 1.20 mg/dL [facility] Sodium 143 135 - 145 mmol/L [facility] Potassium 3.9 3.5 - 5.0 mmol/L [facility] Comment: Please note: ??Patients with WBC >100,000 may have falsely elevated Potassium levels. ??For accurate Potassium quantification in these patients send serum separator tube (gold top) for subsequent determinations. ??Contact the Clinical Chemistry Laboratory if there are any questions. Chloride 103 98 - 107 mmol/L [facility] Carbon Dioxide 26 22 - 31 mmol/L [facility] Anion Gap 14 5 - 15 mmol/L [facility] Calcium 10.0 8.5 - 10.5 mg/dL [facility] Est Glomerular Filtration Rate 103 >=60 mL/min/1. 73 m?? [facility] Comment: The eGFR was calculated using the CKD-EPI equation. As with all creatinine based estimates of kidney function, eGFR values calculated with the CKD-EPI equation are not accurate in patients with acute kidney failure, extremes of body mass or the acutely ill. http://[employer]/[facility] eGFR 120 >=60 mL/min/1. 73 m?? [facility] Comment: The eGFR was calculated using the CKD-EPI equation. As with all creatinine based estimates of kidney function, eGFR values calculated with the CKD-EPI equation are not accurate in patients with acute kidney failure, extremes of body mass or the acutely ill. http://[employer]/[facility] Blood specimen (specimen) 08/12/2018 3:45 PM EDT 08/12/2018 4:15 PM EDT Narrative Resulting Agency Comment Spec In Lab Nathaniel Venegas MD CHEMISTRY ORDERABLES [facility] [place] [address] * Mammo Diag Kendell Bilateral (10/07/2015 12:51 [...] capacity to make decision: Yes Care Teams Construction Project Assistant Relationship Specialty Start Date End Date Baron Hobson PA [address] [place] [address] PCP - General Family Medicine 02/01/23
--- OUTSIDE RECORDS SUMMARY | 2024-01-06 02:34 | XMS_ITS | Encounter Summary ---
Author Organization [facility] [place] [address] Care Team Providers Care Hide Salter Name Role Phone Unknown Primary Care Provider [...] 11:30 AM EDT Office Visit Endocrinology at [place] [phone] Alma Delia Martinez MD [facility] [place]OCRINOLOG[place] [address] 01/17/2024 11:50 AM EDT Appointment MRI at [place] [phone] Dennise Jaimes APRN [facility] [place] [address] 01/17/2024 1:40 PM EDT Office Visit Neurosurgery at [place] [phone] Dennise Jaimes APRN [facility] [place] [place] [address] 02/26/2024 11:00 AM EDT Office [place] [address] Clinic, Dr Alfaro Team None documented as of this encounter Visit Diagnoses Not on filedocumented in this encounter Care Teams Hide Salter Relationship Specialty Start Date End Date Unknown None PCP - General 02/24/22 01/31/23 documented as of this encounter
--- OUTSIDE RECORDS SUMMARY | 2024-01-06 02:34 | XMS_ITS | Encounter Summary ---
Author Organization [facility] Address [facility] [place] [address] Care Team Providers Care Inbound Customer Service Agent Name Role Phone Unknown Primary Care Provider Unavailabl e Encounter Details Date Type Department Care Team (Late st Contact Info) Description 01/04/2023 10:30 AM EDT Office [place] [phone] Darwin Noel MD [facility] DR ENDOCRINOLOG[place] [address] Thyroid nodule (Primary Dx) Social History Tobacco [...] We will try to obtain these from [facility]. Bedside ultrasound today reveals bilateral mixed solid/cystic [...] tired. Gained 30 lbs in a year. [place] something stuck in her throat. Denied dysphagia. [...] your patient. D/W Dr. Adali Noel MD [facility] Endocrinology PGY-5, Fellow Pager #[phone] * Darwin Noel MD - 01/04/2023 10:30 AM EDT ENDOCRINOLOGY THYROID ULTRASOUND REPORT Patient:Holly Mcnally, [id number] Date of exam: 01/04/2023 Indication: thyroid nodules [...] US in 1 year. Darwin Noel MD [facility] Endocrinology PGY-4, Fellow Pager #[phone] * EchtFrancisca MD - 01/04/2023 10:30 AM EDT Patient seen with Dr. Noel. I agree with the assessment and plan as documented and was involved in all medical decision making. Based on imaging, do not need to FNA her thyroid nodules but recommend repeat ultrasound in 1 year. Francisca Bro MD [employer] Salvage Processorventilator specialist Endocrinology Section [facility] documented in this encounter Plan of Treatment Upcoming Encounters Date Type Department Care Team (Late st Contact Info) Description 01/10/2024 11:30 AM EDT Office Visit Endocrinology at [place] [phone] Alma Delia Martinez MD [facility] [place] [address] 01/17/2024 11:50 AM EDT Appointment MRI at [place] [phone] Dennise Jaimes, [facility] [place] [address] 01/17/2024 1:40 PM EDT Office Visit Neurosurgery at [place] [phone] Dennise Jaimes, [facility] [place] [address] 02/26/2024 11:00 AM EDT Office Visit Orthopaedics at [place] [phone] Clinic, Dr Alfaro Team None documented as of this encounter Procedures Procedure Name Priority Date/Time Associated Diagnosis Comments TSH CASCADE Routine 01/04/2023 11:24 AM EDT Thyroid nodule documented in this encounter Results * TSH [place] (01/04/2023 11:24 AM EDT) Thyroid Stimulating Hormone 1.46 0.27 - 4.20 mcIU/mL [facility] Comment: Reference Interval (mcIU/mL): Females: ??First Trimester: 0.23-3.88 ??Second Trimester: 0.22-3.90 ??Third Trimester: 0.44-4.66 Blood 01/04/2023 11:2 4 AM EDT 01/04/2023 11:49 AM EDT Narrative Resulting Agency Comment Spec In Lab Francisca Bro MD CHEMISTRY ORDERABLES [facility] [place] [address] documented in this encounter Visit Diagnoses Diagnosis Thyroid nodule- Primary Nontoxic uninodular goiter documented in this encounter Care Teams Inbound Customer Service Agent Relationship Specialty Start Date End Date Unknown None PCP - General 02/24/22 01/31/23 documented as of this encounter
--- OUTSIDE RECORDS SUMMARY | 2024-01-06 02:34 | XMS_ITS | Encounter Summary ---
Author Organization [facility] Address [address] [place] [address] Care Team Providers Care Optomechanical Technician Name Role Phone Unknown, Provider Primary Care Provider Encounter Details Date Type Department Care Team (Late st Contact Info) Description 03/15/2011 Results Only Imaging [facility] [phone] Boubacar Hough MD [address] [place] [address] [address] [place], [place] [phone] Social History Tobacco Use Types Packs/Day Years [...] Info) Description 02/11/2024 13:15 EDT Office Visit [facility] Psychiatry - [address] [phone] October, Shabana Vera MD MPH 111 [facility] Level 4 [place] [address] Laci Cheema MD [address] [place], [place] [phone] documented as of this encounter Procedures Procedure Name Priority Date/Time Associated Diagnosis Comments SHELTER ULTRASCREEN (INCLUDES SEQUENTIAL SCREEN) 04/04/2011 16:12 EDT documented in this encounter Results * SHELTER ULTRASCREEN (04/04/2011 16:12 EDT) Anatomical Region Laterality [...] of Ultrasound Findings: Transabdominal US. U/S machine: Suvaco 9. U/S view: limited by adiposity. Maternal Structures: Right Ovary: Normal w/ simple cyst. Cysts Right Ovary: Cyst 1: Mean value: 36 mm. D1: 33 mm. D2: 35 mm. D3: 39 mm. Volume: 24 ml. Simple cyst. Left Ovary: not examined. Report Summary: Impression: NOTE: This study was ordered as an NT ONLY so maternal and anatomy assessments were not performed. [id number] Nuchal translucency measurement This is a etienne [...] screening, you may still send serum to [facility] for MSAFP alone to screen for neural [...] of Ultrasound Findings: Transabdominal US. U/S machine: Suvaco 9. U/S view: limited by adiposity. Maternal Structures: Right Ovary: Normal w/ simple cyst. Cysts Right Ovary: Cyst 1: Mean value: 36 mm. D1: 33 mm. D2: 35 mm. D3: 39 mm. Volume: 24 ml. Simple cyst. Left Ovary: not examined. Report Summary: Impression: NOTE: This study was ordered as an NT ONLY so maternal and anatomy assessments were not performed. [id number] Nuchal translucency measurement This is a etienne [...] screening, you may still send serum to [facility] for MSAFP alone to screen for neural [...] ... ... ... Boubacar Hough MD IMG SHELTER ORDERABLE S documented in this encounter Visit Diagnoses Not on filedocumented in this encounter Care Teams Optomechanical Technician Relationship Specialty Start Date End Date Unknown, Provider, PCP - General 07/06/09 04/03/11 documented as of this encounter
--- OUTSIDE RECORDS SUMMARY | 2024-01-06 02:35 | XMS_ITS | Encounter Summary ---
Author Organization [facility] [place] [address] Care Team Providers Care Seam Feller Name Role Phone Unknown Primary Care Provider Unavailabl e Encounter Details Date Type Department Care Team (Late st Contact Info) Description 12/27/2022 [place] [address] Dennise Jaimes APRN [facility] [place] [address] Social History Tobacco Use Types Packs/Day Years [...] 11:30 AM EDT Office [place] [address] Alma Delia Martinez MD [facility] DR [place] [address] 01/17/2024 11:50 AM EDT Appointment MRI at [address] Dennise Jaimes, SENIOR COLDFUSION DEVELOPER [facility] [place] [address] 01/17/2024 1:40 PM EDT [place] [address] Dennise Jaimes, SENIOR COLDFUSION DEVELOPER [facility] [place] [address] 02/26/2024 11:00 AM EDT Office Visit Orthopaedics at [place] [phone] Clinic, Dr Alfaro Team None documented as of this encounter Visit Diagnoses Not on filedocumented in this encounter Care Teams Seam Feller Relationship Specialty Start Date End Date Unknown None PCP - General 02/24/22 01/31/23 documented as of this encounter
--- OUTSIDE RECORDS SUMMARY | 2024-01-06 02:35 | XMS_ITS | Encounter Summary ---
[place] [address] Care Team Providers Care Gaming Table Operator Name Role Phone BarbraLucasClaudiatony Gabriel APRN Primary Care Provider [phone] Reason for Referral * Diagnostic Test (Routine) - Closed Specialty Diagnoses / Procedures Referred By Janisac t Referred To Contact Radiology Diagnoses Cerebral aneurysm Procedures MRI Angiogram Head wo Contrast (Generic) Dennise Jaimes APRN [facility] [place] [address] [place] [address] Referral ID Status Reason Start Date Expiration Date V isits Requested Visits Authorized [id number] Closed Specialty Service Requested 10/11/2021 04/12/2023 1 1 Reason for Visit * Diagnostic Test (Routine) - Closed Specialty Diagnoses / Procedures Referred By Contac t Referred To Contact Radiology Diagnoses Cerebral aneurysm Procedures MRI Angiogram Head wo Contrast (Generic) Dennise Jaimes APRN [facility] [place] [address] [place] [address] Referral ID Status Reason Start Date Expiration Date V isits Requested Visits Authorized [id number] Closed Specialty Service Requested 10/11/2021 04/12/2023 1 1 Encounter Details Date Type Department Care Team (Latest Contact Info) Description 11/24/2021 9:07 AM EDT - 11/24/2021 9:10 AM EDT Hospital Encounter MRI at [facility] [place] [place] [address] Dennise Jaimes APRN [facility] [place] [address] Cerebral aneurysm Discharge Disposition: Home Social History [...] 41 y.o. : 1980 [address] [facility] [address] Female [phone] (home) Telephone Information: Claudia Belle APRN No primary care provider on file. Allergies Allergen Reactions ??? Amoxicillin Nausea And Vomiting Passed out ??? Asa Buff (Mag Carb-Al Glyc) [Aspirin, Buffered] Anxiety ??? Codeine Nausea Only ??? Nsaids (Non-Steroidal Anti-Inflammatory Drug) Palpitations Date/Time of call: November 20, 2021/11:50 AM/ PREVIOUS MRI SCAN? Yes, w/o sedation HEIGHT: WEIGHT: SCHEDULED SCAN: MRI HEAD ANGIOGRAM WO CONTRAST [[id number]] Order Questions Answers Where will study be performed? [facility] Radiology [120] Is the patient ? Unknown SUBJECTIVE: Clautrophobia CAN YOU LAY FLAT? Yes AIRWAY/BREATHING ISSUES? No DO YOU HAVE ANY INVOLUNTARY MOVEMENTS? No DO YOU HAVE ANY PAIN? No DO YOU TAKE PAIN MED ON A DAILY BASIS? No ASSESSMENT: OK for PO sedation PLAN: Valium 5-10 mg PO ordered (CHRISTINA ) You must have a special needs bus driver present when you check in. This patient has been informed that they require a special needs bus driver to drive them home after this procedure. In the absence of a special needs bus driver, IR will not be able to sedate for your scan. Pt verbalized understanding of these instructions during the pre-procedure education via phone. Yes Name of special needs bus driver: Phone number: PRIOR SCAN DATE/S SEDATION TYPE SUCCESSFUL 10/07/18 Diagnostic Cerebral Arteriogram Interventional Radiology ?? [facility] [place] Unknown ?? 11/11/19 MRI Head wo ? 11/24/21 MRI head wo?Valium 5mg PO x 2 ? Revised 10/29/17 documented in this encounter Plan of Treatment Upcoming Encounters Date Type Department Care Team (Late st Contact Info) Description 01/10/2024 11:30 AM EDT Office [place] [phone] Alma Delia Martinez MD [facility] [place] [address] 01/17/2024 11:50 AM ED[place] [phone] Dennise Jaimes APRN [facility] [place] [address] 01/17/2024 1:40 PM EDT Office [place] [address] Dennise Jaimes APRN [facility] [place] [address] 02/26/2024 11:00 AM EDT Office [place] [address] Clinic, Dr Alfaro Team None [...] questions please contact the health customer care consultant that requested your imaging first. ? Narrative 11/24/2021 2:42 PM EDT EXAMINATION: MRI ANGIOGRAM HEAD WO CONTRAST (GENERIC) CLINICAL HISTORY: right opthalmic aneurysm TECHNIQUE: MRA of the head performed without contrast. 3-D MIP reconstructions were created. 3-D estx-kf-ohukcu. Axial high-resolution T1 imaging through the [place] [facility] [place] was also performed COMPARISON: Previous MRA 11/02/2020 11/11/2019 and 10/17/2018 cerebral angiogram. 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 I have measured it on transverse 3-D fnza-wi-ecuivc data images. It measures about 4 mm [...] contrast. 3-D MIP reconstructions were created. 3-D npkx-fb-oxutyk. Axial high-resolution T1 imaging through the[place] [facility] [place] was also performed COMPARISON: Previous MRA 11/02/2020 11/11/2019 and 10/17/2018 cerebral angiogram. FINDINGS: Again noted is a small aneurysm at the origin of the right ophthalmicartery. I have measured it on transverse 3-D mibz-vm-ysglsv data images. It measuresabout 4 mm in [...] have questions please contactthe health customer care consultant that requested your imaging first. Dennise Jaimes [...] mg documented in this encounter Care Teams Gaming Table Operator Relationship Specialty Start Date End Date Claudia Belle APRN [address] [place] [address] [place] [address] PCP - General Family Medicine 11/11/21 02/23/22 documented as of this encounter
--- OUTSIDE RECORDS SUMMARY | 2024-01-06 02:35 | XMS_ITS | Encounter Summary ---
Author Organization [facility] [place] [address] Care Team Providers Care Handbag Stitcher Name Role Phone Terri Thrasher NAMRATA Primary Care Provider + Encounter Details Date Type Department Care Team (Late st Contact Info) Description 09/24/2018 [place] [address] Candace Hollingsworth JOB FORWARDER [facility] [place] [address] Social History Tobacco Use Types Packs/Day Years [...] EDT Telephone note: Called by Nguyen Jones ECONOMIC FORECASTER regarding patient Holly Mcnally. Patient had presented to [facility] with c/o headache with visual disturbance (black [...] Hold anticoagulation/antiplatelets therapys (not currently on any) ECONOMIC FORECASTER Robert was agreeable with this plan. We are available for any further questions or concerns. Candace Hollingsworth APRN documented in this encounter Plan of Treatment Upcoming Encounters Date Type Department Care Team (Late st Contact Info) Description 01/10/2024 11:30 AM EDT Office Visit Endocrinology at [place] [phone] Alma Delia Martinez MD [facility] [place] [address] 01/17/2024 11:50 AM [place] [address] Dennise Jaimes [facility] [address] 01/17/2024 1:40 PM EDT Office Visit Neurosurgery at [place] [phone] Dennise Jaimes JOB FORWARDER [facility] [place] [address] 02/26/2024 11:00 AM EDT Office [place] [phone] Clinic, Dr Alfaro Team None documented as of this encounter Visit Diagnoses Not on filedocumented in this encounter Care Teams Handbag Stitcher Relationship Specialty Start Date End Date Terri Thrasher APRN PCP - General Family Medicine 08/01/18 02/14/21 documented as of this encounter
--- OUTSIDE RECORDS SUMMARY | 2024-01-06 02:35 | XMS_ITS | Encounter Summary ---
Author Organization [facility] [place] [address] Care Team Providers Care Filenet Architect Name Role Phone Terri Thrasher NAMRATA Primary Care Provider + Encounter Details Date Type Department Care Team (Late st Contact Info) Description 10/07/2018 [place] [address] Eugenio Hernandez MD [facility] [place] [address] Cerebral aneurysm without rupture Social [...] 11:30 AM EDT Office [place] [address] Alma Delia Martinez MD [facility] [place] [address] 01/17/2024 11:50 [place] [address] Dennise Jaimes APRN [facility] [address] 01/17/2024 1:40 PM EDT [place] [phone] Dennise Jaimes APRN [facility] [address] 02/26/2024 11:00 AM EDT Office [place] [phone] Clinic, Dr Alfaro Team None documented as of this encounter Visit Diagnoses Diagnosis Cerebral aneurysm without rupture Cerebral aneurysm, nonruptured documented in this encounter Care Teams Filenet Architect Relationship Specialty Start Date End Date Terri Thrasher APRN PCP - General Family Medicine 08/01/18 02/14/21 documented as of this encounter
--- OUTSIDE RECORDS SUMMARY | 2024-01-06 02:35 | XMS_ITS | Encounter Summary ---
Author Organization [facility] [place] [address] Care Team Providers Care Bilingual Research Interviewer Name Role Phone Lashawn Mcnally NAMRATA Primary Care Provider [phone] Encounter Details Date Type Department Care Team (Late st Contact Info) Description 02/20/2021 Orders [place] [phone] Poncho De La Cruz MD [facility] ENDOCRINOLOGY [place], [place] [phone] Thyroid nodule Social History Tobacco Use Types [...] 11:30 AM EDT Office [place] [address] Alma Delia Martinez MD [facility] [place] [address] 01/17/2024 11:50 [place] [address] Jaimes, Dennise L, [facility] [place] [address] 01/17/2024 1:40 PM EDT [place] [phone] Dennise Jaimes [facility] [place] [address] 02/26/2024 11:00 AM EDT Office [place] [phone] Clinic, Dr Alfaro Team None documented as of this encounter Visit Diagnoses Diagnosis Thyroid nodule Nontoxic uninodular goiter documented in this encounter Care Teams Bilingual Research Interviewer Relationship Specialty Start Date End Date Lashawn Mcnally APRN [address] [place] [address] PCP - General Family Medicine 02/15/21 11/10/21 documented as of this encounter
--- OUTSIDE RECORDS SUMMARY | 2024-01-06 02:35 | XMS_ITS | Encounter Summary ---
Author Organization [facility] [place] [address] Care Team Providers Care Dietitian Consultant Name Role Phone Terri Thrasher NAMRATA Primary Care Provider + Encounter Details Date Type Department Care Team (Late st Contact Info) Description 09/24/2018 Ancillary Procedure [place] [phone] Huang Nicole MD [facility] [place] [address] Social History Tobacco Use Types Packs/Day Years [...] 11:30 AM EDT Office [place] [phone] Alma Delia Martinez MD [facility] ENDOCRINOLOGY DEPT [place], [place] [phone] 01/17/2024 11:50 [place] [address] Dennise Jaimes APRN [facility] [place] [address] 01/17/2024 1:40 PM EDT [place] [address] Dennise Jaimes, FIELD RING ASSEMBLER [facility] [place] [address] 02/26/2024 11:00 AM EDT Office [place] [address] Clinic, Dr Alfaro Team None documented as of this encounter Procedures Procedure Name Priority Date/Time Associated Diagnosis Comments FILM LIBRARY STORAGE ONLY MR HEAD Routine 09/24/2018 12:00 AM EDT documented in this encounter Results * Film Library- Storage Only MR Head (09/24/2018 12:00 AM EDT) Narrative [facility] - 11/07/2018 10:16 AM EDT This exam is auto-finalizing. It's purpose is for storage only. Huang Nicole MD IMG FILM LIBRARY ORD ERABLES [place], [place] documented in this encounter Visit Diagnoses Not on filedocumented in this encounter Care Teams Dietitian Consultant Relationship Specialty Start Date End Date Terri Thrasher, FIELD RING ASSEMBLER PCP - General Family Medicine 08/01/18 02/14/21 documented as of this encounter
--- OUTSIDE RECORDS SUMMARY | 2024-01-06 02:35 | XMS_ITS | Encounter Summary ---
Author Organization [facility] [place] [address] Care Team Providers Care Lace Machine Operator Name Role Phone Terri Thrasher NAMRATA Primary Care Provider + Encounter Details Date Type Department Care Team (Late st Contact Info) Description 09/24/2018 12:10 AM EDT Ancillary Procedure [place] [phone] Haung Nicole MD [facility] [place] [address] Social History Tobacco Use Types Packs/Day Years [...] 11:30 AM EDT Office [place] [phone] Alma Delia Martinez MD [facility] [address] 01/17/2024 11:50 [place] [address] Dennise Jiames APRN [facility] [address] 01/17/2024 1:40 PM EDT [place] [address] Dennise Jaimes OUTPATIENT SCHEDULER [facility] [place] [address] 02/26/2024 11:00 AM EDT Office [place] [address] Clinic, Dr Alfaro Team None documented as of this encounter Procedures Procedure Name Priority Date/Time Associated Diagnosis Comments FILM LIBRARY STORAGE ONLY ULTRASOUND STUDY Routine 09/24/2018 12:10 AM EDT documented in this encounter Results * Film Library- Storage Only Ultrasound Study (09/24/2018 12:10 AM EDT) Narrative [facility] - 11/07/2018 10:31 AM EDT This exam is auto-finalizing. It's purpose is for storage only. Huang Nicole MD IMG FILM LIBRARY ORD ERABLES [place], [place] documented in this encounter Visit Diagnoses Not on filedocumented in this encounter Care Teams Lace Machine Operator Relationship Specialty Start Date End Date Terri Thrasher APRN PCP - General Family Medicine 08/01/18 02/14/21 documented as of this encounter
--- OUTSIDE RECORDS SUMMARY | 2024-01-06 02:35 | XMS_ITS | Encounter Summary ---
Author Organization [facility] [address] Care Team Providers Care Hydraulic Strainer Operator Name Role Phone Terri Thrasher APRN Primary Care Provider + Encounter Details Date Type Department Care Team (Late st Contact Info) Description 11/02/2020 3:30 PM EDT [place] [phone] Eugenio Hernandez MD [facility] [place] [address] Cerebral aneurysm without rupture Social History Tobacco [...] 11:30 AM EDT Office Visit Endocrinology at [place] [phone] Alma Delia Martinez MD [facility] [place] [address] 01/17/2024 11:50 AM EDT Appointment MRI at [address] Dennise Jaimes SERVICE OBSERVER [facility] [place] [address] 01/17/2024 1:40 PM EDT Office Visit Neurosurgery at [address] Dennise Jaimes SERVICE OBSERVER [facility] [place] [address] 02/26/2024 11:00 AM EDT Office Visit Orthopaedics at [place] [phone] Clinic, Dr Alfaro Team None documented as of this encounter Visit Diagnoses Diagnosis Cerebral aneurysm without rupture Cerebral aneurysm, nonruptured documented in this encounter Care Teams Hydraulic Strainer Operator Relationship Specialty Start Date End Date Terri Thrasher APRN PCP - General Family Medicine 08/01/18 02/14/21 documented as of this encounter
--- OUTSIDE RECORDS SUMMARY | 2024-01-06 02:35 | XMS_ITS | Encounter Summary ---
Author [facility] [place] [address] Care Team Providers Care Clinical Resource Coordinator Name Role Phone Terri Thrasher [employer] DEAN Primary Care Provider + Encounter Details Date Type Department Care Team (Late st Contact Info) Description 09/23/2018 [place] [address] Veronica Michael Social History Tobacco Use Types [...] 11:30 AM EDT Office [place] [address] Alma Delia Martinez MD [facility] [place] [address] 01/17/2024 11:50 [place] [address] Dennise Jaimes APRN [facility] [address] 01/17/2024 1:40 PM EDT [place] [address] Dennise Jaimes APRN [facility] [place] [address] 02/26/2024 11:00 AM EDT Office [place] [address] Clinic, Dr Alfaro Team None documented as of this encounter Visit Diagnoses Not on filedocumented in this encounter Care Teams Clinical Resource Coordinator Relationship Specialty Start Date End Date Terri Thrasher APRN PCP - General Family Medicine 08/01/18 02/14/21 documented as of this encounter
--- OUTSIDE RECORDS SUMMARY | 2024-01-06 02:35 | XMS_ITS | Encounter Summary ---
[place] [address] Care Team Providers Care Service Manager Name Role Phone Claudia vance Nery OTT Primary Care Provider [phone] Reason for Visit * Diagnostic Test (Routine) - Closed Specialty Diagnoses / Procedures Referred By Jesika maddox Referred To Contact Radiology Diagnoses Cerebral aneurysm Procedures MRI Angiogram Head wo Contrast (Generic) Dennise Jaimes APRN [facility] [place] [address] [place] [address] Referral ID Status Reason Start Date Expiration Date V isits Requested Visits Authorized [id number] Closed Specialty Service Requested 10/11/2021 04/12/2023 1 1 Encounter Details Date Type Department Care Team (Latest Contact Info) Description 11/24/2021 9:11 AM EDT - 11/24/2021 11:59 PM EDT Hospital [place] [address] Dennise Jaimes APRN [facility] [place] [address] Discharge Disposition: Home Social History Tobacco Use [...] 11:30 AM EDT Office [place] [address] Alma Delia Martinez MD [facility] [place] [address] 01/17/2024 11:50 [place] [address] Dennise Jaimes APRN [facility] [place] [address] 01/17/2024 1:40 PM EDT Office Visit Neurosurgery at [place] [phone] Dennise Jaimes APRN [facility] [place] [address] 02/26/2024 11:00 AM EDT Office Visit Orthopaedics at [place] [phone] Clinic, Dr Alfaro Team None documented as [...] have questions please contact the health healthcare consulting manager that requested your imaging first. ? Electronically signed by: Nazario Cedillo MD, [facility] ([phone]), at 11/24/2021 2:42 PM Narrative 11/24/2021 2:42 PM EDT EXAMINATION: MRI ANGIOGRAM HEAD WO CONTRAST (GENERIC) CLINICAL HISTORY: right opthalmic aneurysm TECHNIQUE: MRA of the head performed without contrast. 3-D MIP reconstructions were created. 3-D [id number]. Axial high-resolution T1 imaging through the [place] was also performed COMPARISON: Previous MRA 11/02/2020 11/11/2019 and 10/17/2018 cerebral angiogram. 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 I have measured it on transverse 3-D hjjw-[id number] data images. It measures about 4 mm [...] contrast. 3-D MIP reconstructions were created. 3-D fhsc-ft-fpkaco. Axial high-resolution T1 imaging through the[place] was also performed COMPARISON: Previous MRA 11/02/2020 11/11/2019 and 10/17/2018 cerebral angiogram. FINDINGS: Again noted is a small aneurysm at the origin of the right ophthalmicartery. I have measured it on transverse 3-D wyhi-qu-gaigpu data images. It measuresabout 4 mm in [...] who have questions please contactthe health healthcare consulting manager that requested your imaging first. Electronically signed by: Nazario Cedillo MD, [facility]([phone]), at 11/24/2021 2:42 PM Dennise Jaimes APRN [facility] ORDER[facility] documented in this encounter Visit Diagnoses Not on filedocumented in this encounter Care Teams Service Manager Relationship Specialty Start Date End Date Claudia Belle APRN [address] [place] [address] PCP - General Family Medicine 11/11/21 02/23/22 documented as of this encounter
--- OUTSIDE RECORDS SUMMARY | 2024-01-06 02:35 | XMS_ITS | Encounter Summary ---
Author Organization [facility] [place] [address] Care Team Providers Care Business Banking Manager Name Role Phone Lashawn Mcnally APRN Primary Care Provider [phone] Reason for Visit * Consultation (Routine) - Closed Specialty Diagnoses / Procedures Referred By Jesika maddox Referred To Contact Endocrinology Diagnoses Nontoxic single thyroid nodule BILAT THYROID NODULES Lashawn Mcnally APRN [address] [place] [address] [facility] Endocrinology [address] [place] [address] Referral ID Status Reason Start Date Expiration Date V isits Requested Visits Authorized [id number] Closed Consult, Test & Treat Connection [facility] PCP Updated and/or Approved 02/07/2021 02/07/2022 12 12 Encounter Details Date Type Department Care Team (Late st Contact Info) Description 09/05/2021 11:00 AM EDT Office Visit [place] [address] Hector Navas, [facility] [place] [address] Multinodular goiter Social History Tobacco Use Types [...] these were done just last month at [facility]. Review of Systems: Review of Systems [...] IR Arteriogram Cerebral 10/07/2018 Eugenio Hernandez MD [facility] RAD Social History Socioeconomic History ??? [...] We will try to obtain these from [facility]. Bedside ultrasound today reveals bilateral mixed [...] included. ENDOCRINOLOGY THYROID ULTRASOUND REPORT Patient:Holly Mcnally, [id number] Date of exam: 09/06/2021 Indication: thyroid nodule Comparison: 01/31/21 Performed by: Hector Navas DO, Real time images of the thyroid gland were obtained using a Hachiko US machine. All measurements are given as [...] 11:30 AM EDT Office Visit Endocrinology at [place] [phone] Alma Delia Martinez MD [facility] [place] [address] 01/17/2024 11:50 AM EDT Appointment MRI at [place] [phone] Dennise Jaimes, [facility] [place] [address] 01/17/2024 1:40 PM EDT Office Visit Neurosurgery at [place] [phone] Dennise Jaimes, [facility] [place] [address] 02/26/2024 11:00 AM EDT Office Visit Orthopaedics at [place] [phone] Clinic, Dr Alfaro Team None documented as of this encounter Visit Diagnoses Diagnosis Multinodular goiter Nontoxic multinodular goiter documented in this encounter Care Teams Business Banking Manager Relationship Specialty Start Date End Date Lashawn Mcnally APRN [address] [place] [address] PCP - General Family Medicine 02/15/21 11/10/21 documented as of this encounter
--- OUTSIDE RECORDS SUMMARY | 2024-01-06 02:35 | XMS_ITS | Encounter Summary ---
Author Organization [facility] [place] [address] Care Team Providers Care Hoop Cutter Name Role Phone Lashawn Mcnally NAMRATA Primary Care Provider [phone] Encounter Details Date Type Department Care Team (Late st Contact Info) Description 10/10/2021 Telephone Neurosurgery at [facility] [place] [address] Delma Jaimes Social History Tobacco Use Types [...] caller: Any Best number to reach caller: [phone] Reason for call: Pt calling to schedule [...] 11:30 AM EDT Office Visit Endocrinology at [place] [phone] Alma eDlia Martinez MD [facility] [place] [address] 01/17/2024 11:50 [place] [address] Dennise Jaimes APRN [facility] [place] [address] 01/17/2024 1:40 PM EDT Office Visit Neurosurgery at [place] [phone] Dennise Jaimes APRN [facility] [place] [address] 02/26/2024 11:00 AM EDT Office [place] [address] Clinic, Dr Alfaro Team None documented as of this encounter Visit Diagnoses Not on filedocumented in this encounter Care Teams Hoop Cutter Relationship Specialty Start Date End Date Lashawn Mcnally APRN [address] [place] [address] PCP - General Family Medicine 02/15/21 11/10/21 documented as of this encounter
--- OUTSIDE RECORDS SUMMARY | 2024-01-06 02:35 | XMS_ITS | Encounter Summary ---
Author Organization [facility] [place] [address] Care Team Providers Care Product Transfer Pumper Name Role Phone Unknown Primary Care Provider Unavailabl e Encounter Details Date Type Department Care Team (Late st Contact Info) Description 10/04/2022 Telephone [place] [address] Juleit Gutierres RN Social History Tobacco Use Types [...] 11:30 AM EDT Office [place] [address] Alma Delia Martinez MD [facility] [place] [address] 01/17/2024 11:50 AM EDT [place] [address] Dennise Jaimes, [facility] [place] [address] 01/17/2024 1:40 PM EDT Office Visit Neurosurgery at [place] [phone] Dennise Jaimes, [facility] [place] [address] 02/26/2024 11:00 AM EDT Office Visit Orthopaedics at [place] [phone] Clinic, Dr Alfaro Team None documented as of this encounter Visit Diagnoses Not on filedocumented in this encounter Care Teams Product Transfer Pumper Relationship Specialty Start Date End Date Unknown None PCP - General 02/24/22 01/31/23 documented as of this encounter
--- OUTSIDE RECORDS SUMMARY | 2024-01-06 02:35 | XMS_ITS | Encounter Summary ---
[place] [address] Care Team Providers Care Swimming Instructor Name Role Phone Unknown Primary Care Provider Unavailabl e Reason for Referral * Diagnostic Test (Routine) - Authorized Specialty Diagnoses / Procedures Referred By Jesika maddox Referred To Contact Radiology Diagnoses Aneurysm of ophthalmic artery Procedures MRI Angiogram Head wo Contrast (Generic) Dennise Jaimes APRN [facility] [place] [place] [address] [place] [address] Referral ID Status Reason Start Date Expiration Date Visits Requested Visits Authorized [id number] Authorized Specialty Service Requested 12/21/2022 06/23/2024 1 1 Encounter Details Date Type Department Care Team (Late st Contact Info) Description 12/21/2022 1:00 PM EDT [place] [address] Dennise Jaimes APRN [facility] [place] [place] [address] Aneurysm of ophthalmic artery Social [...] this encounter Progress Notes * Dennise Jaimes, BATTER SCALER - 12/21/2022 1:00 PM EDT ASSESSMENT/PLAN: Aneurysm [...] repeat your MRA in [address] [facility]. Please feel free to call in the [...] repeat your MRA in [address] [facility]. Please feel free to call in the [...] 11:30 AM EDT Office Visit Endocrinology at [place] [phone] Alma Delia Martinez MD [facility] [place] [address] 01/17/2024 11:50 AM [place] [address] Dennise Jaimes APRN [facility] [place] [address] 01/17/2024 1:40 PM EDT Office [place] [address] Dennise Jaimes APRN [facility] [place] [address] 02/26/2024 11:00 AM EDT Office [place] [address] Clinic, Dr Alfaro Team None Scheduled Orders Name Type Priority Associated Diagnoses Orde r Schedule MRI Angiogram Head wo Contrast (Generic) Imaging Routine Aneurysm of ophthalmic artery Expected: 12/22/2023, Expires: 06/23/2024 documented as of this encounter Visit Diagnoses Diagnosis Aneurysm of ophthalmic artery Cerebral aneurysm, nonruptured documented in this encounter Care Teams Swimming Instructor Relationship Specialty Start Date End Date Unknown None PCP - General 02/24/22 01/31/23 documented as of this encounter
--- OUTSIDE RECORDS SUMMARY | 2024-01-06 02:35 | XMS_ITS | Encounter Summary ---
[place] [address] Care Team Providers Care Supervisor Product Inspection Name Role Phone Unknown Primary Care Provider Unavailabl e Reason for Referral * Diagnostic Test (Routine) - Closed Specialty Diagnoses / Procedures Referred By Contac t Referred To Contact Radiology Diagnoses Aneurysm of ophthalmic artery Procedures MRI Angiogram Head wo Contrast (Generic) Dennise Jaimes APRN [facility] [place] [address] [place] [address] Referral ID Status Reason Start Date Expiration Date V isits Requested Visits Authorized [id number] Closed Specialty Service Requested 11/24/2021 05/26/2023 1 1 Reason for Visit * Diagnostic Test (Routine) - Closed Specialty Diagnoses / Procedures Referred By Contac t Referred To Contact Radiology Diagnoses Aneurysm of ophthalmic artery Procedures MRI Angiogram Head wo Contrast (Generic) Dennise Jaimes APRN [facility] [place] [address] [place] [address] Referral ID Status Reason Start Date Expiration Date V isits Requested Visits Authorized [id number] Closed Specialty Service Requested 11/24/2021 05/26/2023 1 1 Encounter Details Date Type Department Care Team (Latest Contact Info) Description 12/21/2022 11:10 AM EDT - 12/21/2022 11:59 PM EDT [place] [phone] Dennise Jaimes APRN [facility] [place] [address] Aneurysm of ophthalmic artery Discharge Disposition: Home [...] Sig Dispensed Refills Start Date End Date EPINEPHrine 0.3 mg/0.3 mL Auto-Injector as needed. albuteroL 90 mcg/actuation HFA Aerosol Inhaler INHALE [...] 11:30 AM EDT Office [place] [phone] Alma Delia Martinez MD [facility] [place] [address] 01/17/2024 11:50 [place] [address] Dennise Jaimes APRN [facility] [place] [address] 01/17/2024 1:40 PM EDT Office [place] [address] Dennise Jaimes APRN [facility] [place] [address] 02/26/2024 11:00 AM EDT Office [place] [address] Clinic, Dr Alfaro Team None [...] who have questions please contact the health direct care provider that requested your imaging first. ? Narrative 12/21/2022 6:39 PM EDT EXAMINATION: MRI [...] patients who have questions please contactthe health direct care provider that requested your imaging first. Dennise Jaimes POWER TRUCK DRIVER IMG MRI ORDERABLES documented in this encounter Visit Diagnoses Diagnosis Aneurysm of ophthalmic artery Cerebral aneurysm, nonruptured documented in this encounter Care Teams Supervisor Product Inspection Relationship Specialty Start Date End Date Unknown None PCP - General 02/24/22 01/31/23 documented as of this encounter
--- OUTSIDE RECORDS SUMMARY | 2024-01-06 02:35 | XMS_ITS | Encounter Summary ---
Author Organization [facility] [place] [address] Care Team Providers Care Ore Crushing Dust Collector Name Role Phone Terri Thrasher NAMRATA Primary Care Provider + Encounter Details Date Type Department Care Team (Latest Contact Info) Description 10/07/2018 6:30 AM EDT Laboratory Appointment Lab at [place] [phone] Pre-op testing; Facial droop; Aneurysm Social History [...] 11:30 AM EDT Office [place] [address] Alma Delia Martinez MD [facility] [place] [address] 01/17/2024 11:50 AM [place] [address] Dennise Jaimes APRN [facility] [place] [address] 01/17/2024 1:40 PM EDT Office [place] [address] Dennise Jaimes, LOAN COUNSELOR [facility] [place] [address] 02/26/2024 11:00 AM EDT Office [place] [address] Clinic, Dr Alfaro Team None documented as of this encounter Procedures Procedure Name Priority Date/Time Associated Diagnosis Comments APTT STAT 10/07/2018 6:35 AM EDT PROTHROMBIN TIME STAT 10/07/2018 6:35 AM EDT Aneurysm Pre-op testing PLATELET COUNT STAT 10/07/2018 6:35 AM EDT Pre-op testing Facial droop documented in this encounter Results * APTT (10/07/2018 6:35 AM EDT) Partial Thromboplastin Time 29 25 - 37 sec [facility] HEMATOLOGY ORDERABLE S [facility] [place] [address] * Prothrombin Time (10/07/2018 6:35 AM EDT) Prothrombin Time 9.9 9.4 - 12.5 sec [facility] International Normalization Ratio 0.9 [facility] Comment: An INR <2.0 indicates [...] HEMATOLOGY ORDERABLE S [facility] [place] [address] * Platelet count (10/07/2018 6:35 AM EDT) Platelet 292 145 - 357 x10(3)/mc L [facility] Immature Plt % 1.5 0.0 - 7.4 % [facility] Comment: Limitation of the Immature Platelet Fraction (IPF)-May be less reliable when the platelet count is less than 96b616/uL due to statistical imprecision. The IPF value [...] in a decreased state of production. References: [employer] The Clinical Value of the Immature Platelet Fraction (IPF) in Cell Recovery Document Number 10-1143 11/2010 [employer] The Role of the Immature Platelet Fraction (IPF) in the Differential Diagnosis of Thrombocytopenia, Document [id number] V05 P05/14 Blood specimen (specimen) 10/07/2018 6:35 AM EDT 10/07/2018 7:10 AM EDT Narrative Resulting Agency Comment Spec In Lab Eugenio Hernandez MD HEMATOLOGY ORDERABLE S [facility] [place] [address] documented in this encounter Visit Diagnoses Diagnosis Pre-op testing Preoperative examination, unspecified Facial droop Facial weakness Aneurysm Aneurysm of unspecified site documented in this encounter Care Teams Ore Crushing Dust Collector Relationship Specialty Start Date End Date Terri Thrasher, LOAN COUNSELOR PCP - General Family Medicine 08/01/18 02/14/21 documented as of this encounter
--- OUTSIDE RECORDS SUMMARY | 2024-01-06 02:35 | XMS_ITS | Encounter Summary ---
Author Organization [facility] Address [facility] [place] [address] Care Team Providers Care Soil Science Teacher Name Role Phone Terri Thrasher NAMRATA Primary Care Provider + Reason for Referral * Chiropractic (Routine) - Specialty Diagnoses / Procedures Referred By Jesika maddox Referred To Contact Diagnoses Cervicogenic headache Huang Nicole MD [facility] [place] [address] Referral ID Status Reason Start Date Expiration Date V isits Requested Visits Authorized [id number] Consult, Test & Treat 10/28/2018 04/26/2019 1 1 Reason for Visit * Consultation (Routine) - Closed Specialty Diagnoses / Procedures Referred By Jesika t Referred To Contact Neurology Mil Darby MD [facility] [place] [address] [facility] [address] [place] [phone] Referral ID Status Reason Start Date Expiration Date V isits Requested Visits Authorized [id number] Closed Consult, Test & Treat 08/12/2018 08/12/2019 1 1 Encounter Details Date Type Department Care Team (Late st Contact Info) Description 10/28/2018 9:45 AM EDT Office [place] [address] Huang Nicole MD [facility] [place] [place] [address] Cervicogenic headache; Gillette palsy; Brain aneurysm Social [...] - 10/28/2018 9:45 AM EDT NEUROLOGY CLINIC [facility] [place] [address] 10/28/2018 Patient name: Holly Mcnally Date of : 1980 Referring provider: Mil Darby MD [facility] [place] [address] HISTORY ?? REASON FOR REFERRAL/CHIEF COMPLAINT: Headache [...] MRI / CT Scan and ultrasound at [facility] . She feels test results were normal. 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 Smokes 8 cigarettes a day. No alcohol. [...] Vision normal. No field deficits. EOMI. Resolving Gillette's palsy R . No weakness of jaw/uvula/ [...] GENERAL THYROID: No results found for: TSH, P7PFCPO, FREET4, TT4, THYROIDAB, THGAB FolateNo results found for: SFOLATE ESRNo results found for: SEDRATE CRPNo results found for: CRP B12No results found for: DZHGWSSE50 CKNo results found for: CK Angiotensin ConvertaseNo [...] LDLCHOL, LDLDIRECT JODIE 65No results found for: USB40QW ANTI GM1,ANTI SGPG, MAG@RESUFAST (MAGAUTOAB,SGPG,MAGWB,GM1AB)@ HEAVY METAL [...] ANNA1, ANNA2, ANNA3, AGNA1, PCA1, PCA2, PCATYPETR, AMPHIPHYSIN,IZRH1KTG, STRIATMSCLAB, CACHABPQTYPE, CACHABNTYPE, ACHRBINDAB, NEUROKCHAB, NMDARECEPTOR, QQL63CD THROMBOSIS HOMEOCYSTEINENo results found for: HOMOCYSTEINE THROMBOSIS PANELNo results found for: ACAIGM, [id number] FACTOR V LEIDEN No components found for: [...] of recent MRI and othertesting done at [facility]. IMPRESSION: ?? Cervicogenic headaches and migraines ?? [...] and obtain recent imaging and labs from [facility]. Will consider additional testing as needed based on it. Follow up in 3 months. Huang Nicole MD Department of Neurology [facility] documented in this encounter Plan of Treatment Upcoming Encounters Date Type Department Care Team (Late st Contact Info) Description 01/10/2024 11:30 AM EDT Office Visit [place] [phone] Alma Delia Martinez MD [facility] [place] [address] 01/17/2024 11:50 AM EDT [place] [address] Dennise Jaimes APRN [facility] [place] [address] 01/17/2024 1:40 PM EDT Office [place] [address] Dennise Jaimes, COTTON EXPERT [facility] [place] [address] 02/26/2024 11:00 AM EDT Office Visit [place] [phone] Clinic, Dr Alfaro Team None Scheduled Referrals Name Type Priority Associated Diagnoses Order Schedule Referral to Chiropractic Outpatient Referral Routine Cervicogenic headache Ordered: 10/28/2018 documented as of this encounter Visit Diagnoses Diagnosis Cervicogenic headache Headache Gillette palsy Gillette's palsy Brain aneurysm Cerebral aneurysm, nonruptured documented in this encounter Care Teams Soil Science Teacher Relationship Specialty Start Date End Date Terri Thrasher APRN PCP - General Family Medicine 08/01/18 02/14/21 documented as of this encounter
--- OUTSIDE RECORDS SUMMARY | 2024-01-06 02:35 | XMS_ITS | Encounter Summary ---
[place] [address] Care Team Providers Care Business Center Manager Name Role Phone Terri Thrasher NAMRATA Primary Care Provider + Reason for Referral * Diagnostic Test (Routine) - Closed Specialty Diagnoses / Procedures Referred By Jesika maddox Referred To Contact Radiology Diagnoses Cerebral aneurysm without rupture Procedures IR Arteriogram Cerebral [facility] Neurosurgery [address] [place] [address] [facility] [place] [address] Referral ID Status Reason Start Date Expiration Date V isits Requested Visits Authorized [id number] Closed Specialty Service Requested 09/08/2018 09/08/2019 1 1 Encounter Details Date Type Department Care Team (Late st Contact Info) Description 09/08/2018 Orders [place] [address] Mallory Delgado RN Cerebral aneurysm [...] 11:30 AM EDT Office [place] [phone] Alma Delia Martinez MD [facility] [place] [address] 01/17/2024 11:50 AM [place] [address] Dennise Jaimes, CRYSTALLIZER OPERATOR [facility] [place] [address] 01/17/2024 1:40 PM EDT Office [place] [address] Dennise Jaimes, [facility] [place] [place] [address] 02/26/2024 11:00 AM EDT Office [place] [address] Clinic, Dr Alfaro Team None documented as of this encounter Results * [...] 125 cm Glidewire, 0.035 inch J-wire, 5 [place] sheath, 5Fr vert catheter, Mynx vascular closure device. TECHNIQUE: The patient was brought to the angiography suite. The right groin was sterilely prepped and draped. Using micropuncture set, the femoral artery was accessed and the 5 [place] pinnacle sheath was placed, and double flushed. 5 [place] vert catheter was positioned in the descending [...] 0.035 125 cm Glidewire, 0.035 inch J-wire,5 [place] sheath, 5Fr vert catheter, Mynx vascular closure device. TECHNIQUE: The patient was brought to the angiography suite. The rightgroin was sterilely prepped and draped. Using micropuncture set, the femoral arterywas accessed and the 5 [place] pinnacle sheath was placed, and double flushed.5 [place] vert catheter was positioned in the descending [...] nonruptured documented in this encounter Care Teams Business Center Manager Relationship Specialty Start Date End Date Terri Thrasher, CRYSTALLIZER OPERATOR PCP - General Family Medicine 08/01/18 02/14/21 documented as of this encounter
--- OUTSIDE RECORDS SUMMARY | 2024-01-06 02:35 | XMS_ITS | Encounter Summary ---
Author Organization [facility] [place] [address] Care Team Providers Care Automatic Lehr Operator Name Role Phone Terri Thrasher FLOOR COVERING LAYER Primary Care Provider + Encounter Details Date Type Department Care Team (Late st Contact Info) Description 09/09/2018 Telephone [place] [address] Veronica Michael Social History Tobacco Use Types [...] sent to pt. * Telephone Encounter - Veronica Michael Manish - 09/09/2018 11:10 AM EDT Images from [...] 11:30 AM EDT Office [place] [address] Alma Delia Martinez MD [facility] [place] [address] 01/17/2024 11:50 AM ED[place] [address] Dennise Jaimes APRN [facility] [place] [address] 01/17/2024 1:40 PM EDT Office [place] [address] Dennise Jaimes APRN [facility] [place] [address] 02/26/2024 11:00 AM EDT Office [place] [address] Clinic, Dr Alfaro Team None documented as of this encounter Visit Diagnoses Not on filedocumented in this encounter Care Teams Automatic Lehr Operator Relationship Specialty Start Date End Date Terri Thrasher APRN PCP - General Family Medicine 08/01/18 02/14/21 documented as of this encounter
--- OUTSIDE RECORDS SUMMARY | 2024-01-06 02:35 | XMS_ITS | Encounter Summary ---
Author Organization [facility] [place] [address] Care Team Providers Care Order Detailer Name Role Phone Terri Thrasher ARCHITECTURE TECHNICIAN Primary Care Provider + Reason for Visit * Reason Comments Establish Care NXR Shena Heller Pa in second Opinion * Consultation (Routine) - Closed Specialty Diagnoses / Procedures Referred By Jesika maddox Referred To Contact Orthopaedics Diagnoses LONG STANDING HX OF LEF TSIDED WRIST PAIN, DX WITH DE QUERVAIN'S TENSYNOVITIS Terri Thrasher, ARCHITECTURE TECHNICIAN [address] [place] [address] [facility] Orthopa[facility]ics [address] [place] [phone] Referral ID Status Reason Start Date Expiration Date V isits Requested Visits Authorized [id number] Closed Consult, Test & Treat Connection Center 08/01/2018 08/01/2019 1 1 Encounter Details Date Type Department Care Team (Late st Contact Info) Description 09/16/2018 10:20 AM EDT Office [place] [address] Chronic pain of left ankle [...] 1/2 ppd No alcohol use Works in [employer] Lives in [place], [place]. PMH: Patient Active Problem List Diagnosis [...] 11:30 AM EDT Office Visit [place] [address] Alma Delia Martinez MD [facility] [place] [address] 01/17/2024 11:50 AM EDT Appointment MRI at [place] [phone] Dennise Jaimes, ARCHITECTURE TECHNICIAN [facility] [place] [address] 01/17/2024 1:40 PM EDT Office [place] [address] Dennise Jaimes, ARCHITECTURE TECHNICIAN [facility] [place] [address] 02/26/2024 11:00 AM EDT Office Visit [place] [address] Clinic, Dr Alfaro Team None documented as of this encounter Visit Diagnoses Diagnosis Chronic pain of left ankle documented in this encounter Care Teams Order Detailer Relationship Specialty Start Date End Date Terri Thrasher APRN PCP - General Family Medicine 08/01/18 02/14/21 documented as of this encounter
--- OUTSIDE RECORDS SUMMARY | 2024-01-06 02:35 | XMS_ITS | Encounter Summary ---
[place] [address] Care Team Providers Care Flatwork Tier Name Role Phone Terri Thrasher NAMRATA Primary Care Provider + Reason for Referral * Diagnostic Test (Routine) - Closed Specialty Diagnoses / Procedures Referred By Jesika maddox Referred To Contact Radiology Diagnoses Cerebral aneurysm without rupture Procedures MRI Angiogram Head wo Contrast (Generic) Eugenio Hernandez MD [facility] [place] [address] [place] [address] Referral ID Status Reason Start Date Expiration Date V isits Requested Visits Authorized [id number] Closed Specialty Service Requested 11/12/2019 05/13/2021 1 1 Reason for Visit * Diagnostic Test (Routine) - Closed Specialty Diagnoses / Procedures Referred By Contac t Referred To Contact Radiology Diagnoses Cerebral aneurysm without rupture Procedures MRI Angiogram Head wo Contrast (Generic) Eugenio Hernandez MD [facility] [place] [address] [place] [address] Referral ID Status Reason Start Date Expiration Date V isits Requested Visits Authorized [id number] Closed Specialty Service Requested 11/12/2019 05/13/2021 1 1 Encounter Details Date Type Department Care Team (Latest Contact Info) Description 11/02/2020 1:31 PM EDT - 11/02/2020 11:59 PM EDT Hospital Encounter MRI at [address] Eugenio Hernandez MD [facility] [place] [address] Cerebral aneurysm without rupture Discharge Disposition: Home [...] 11:30 AM EDT Office Visit Endocrinology at [address] Alma Delia Martinez MD [facility] [place] [address] 01/17/2024 11:50 AM EDT [place] [address] Dennise Jaimes APRN [facility] [place] [address] 01/17/2024 1:40 PM EDT Office Visit Neurosurgery at [place] [phone] Dennise Jaimes APRN [facility] [place] [address] 02/26/2024 11:00 AM EDT Office Visit [place] [address] Clinic, Dr Alfaro Team None [...] please contact the health home health care physician that requested your imaging first. ? Narrative 11/02/2020 3:49 PM EDT EXAMINATION: MRI ANGIOGRAM HEAD WO CONTRAST (GENERIC) CLINICAL HISTORY: Cerebral aneurysm, follow-up right ophthalmic aneurysm surveillance. Incl. noncon SPACE TECHNIQUE: MRA of the head performed without contrast. 3-D MIP reconstructions were created. Evaluation of mid and axial data images. COMPARISON: Previous MRA 11/11/2019, previous angiogram performed on 11/11/2019 FINDINGS: Some motion artifact limiting the study however the [place] is fairly well visualized. The [...] motion artifact limiting the study however the [place] isfairly well visualized. The small [...] questions please contactthe health home health care physician that requested your imaging first. Eugenio Hernandez MD IMG MRI ORDERABLES documented in this encounter Visit Diagnoses Diagnosis Cerebral aneurysm without rupture Cerebral aneurysm, nonruptured documented in this encounter Care Teams Flatwork Tier Relationship Specialty Start Date End Date Terri Thrasher APRN PCP - General Family Medicine 08/01/18 02/14/21 documented as of this encounter
--- OUTSIDE RECORDS SUMMARY | 2024-01-06 02:35 | XMS_ITS | Encounter Summary ---
[place] [address] Care Team Providers Care Machine I Engraver Name Role Phone Lashawn Mcnally NAMRATA Primary Care Provider [phone] Encounter Details Date Type Department Care Team (Late st Contact Info) Description 01/23/2021 Tele[place] [address] Susan Lees Social History Tobacco [...] Caller: Patient Best number to reach caller: [phone] Reason for call: On and off pain in right quaker and neck, pressure in head, right side of head is hot/ not normal Seen yesterday in [facility] ED for similar sx- see Dr. Altman's note Recent Surgery?: no documented in this encounter Plan of Treatment Upcoming Encounters Date Type Department Care Team (Late st Contact Info) Description 01/10/2024 11:30 AM EDT Office [place] [address] Alma Delia Martinez MD [facility] [place] [address] 01/17/2024 11:50 AM EDT Appointment MRI at [place] [address] Dennise Jaimes, [facility] [place] [address] 01/17/2024 1:40 PM EDT Office Visit Neurosurgery at [place] [address] Dennise Jaimes, [facility] [place] [address] 02/26/2024 11:00 AM EDT Office Visit Orthopaedics at [place] [address] Clinic, Dr Alfaro Team None documented as of this encounter Visit Diagnoses Not on filedocumented in this encounter Care Teams Machine I Engraver Relationship Specialty Start Date End Date Lashawn Mcnally APRN [address] [place] [address] PCP - General Family Medicine 02/15/21 11/10/21 documented as of this encounter
--- OUTSIDE RECORDS SUMMARY | 2024-01-06 02:35 | XMS_ITS | Encounter Summary ---
Author Organization [facility] [place] [address] Care Team Providers Care Patented Hogshead Assembler Name Role Phone Terri Thrasher NAMRATA Primary Care Provider + Encounter Details Date Type Department Care Team (Late st Contact Info) Description 09/23/2018 9:10 PM EDT Ancillary Procedure [place] [phone] Leif Hoffman MD [facility] [place] [address] Social History Tobacco Use Types Packs/Day Years [...] 11:30 AM EDT Office Visit [place] [phone] Alma Delia Martinez MD [facility] [place] [address] 01/17/2024 11:50 AM EDT [place] [phone] Dennise Jaimes APRN [facility] [place] [address] 01/17/2024 1:40 PM EDT Office [place] [address] Dennise Jaimes, MILL ROLL OPERATOR [facility] [place] [address] 02/26/2024 11:00 AM EDT Office [place] [address] Clinic, Dr Alfaro Team None documented as of this encounter Procedures Procedure Name Priority Date/Time Associated Diagnosis Comments FILM LIBRARY STORAGE ONLY CT HEAD Routine 09/23/2018 9:05 PM EDT documented in this encounter Results * Film Library- Storage Only CT Head (09/23/2018 9:05 PM EDT) Narrative [facility] - 09/23/2018 9:05 PM EDT This exam is auto-finalizing. It's purpose is for storage only. Leif Hoffman MD IMG FILM LIBRARY ORD ERABLES [place], [place] documented in this encounter Visit Diagnoses Not on filedocumented in this encounter Care Teams Patented Hogshead Assembler Relationship Specialty Start Date End Date Terri Thrasher APRN PCP - General Family Medicine 08/01/18 02/14/21 documented as of this encounter
--- OUTSIDE RECORDS SUMMARY | 2024-01-06 02:35 | XMS_ITS | Encounter Summary ---
Author Organization [facility] [place] [address] Care Team Providers Care Welt Stitch Cleaner Name Role Phone Terri Thrasher SURVEYOR HYDROGRAPHIC Primary Care Provider + Encounter Details Date Type Department Care Team (Late st Contact Info) Description 05/22/2019 [place] [address] Jenny Ferrara Social History Tobacco Use Types [...] 11:30 AM EDT Office [place] [address] Alma Delia Martinez MD [facility] [place] [address] 01/17/2024 11:50 [place] [address] Dennise Jaimes [facility] [place] [address] 01/17/2024 1:40 PM EDT Office Visit Neurosurgery at [place] [phone] Dennise Jaimes [facility] [place] [address] 02/26/2024 11:00 AM EDT Office Visit Orthopaedics at [place] [phone] Clinic, Dr Alfaro Team None documented as of this encounter Visit Diagnoses Not on filedocumented in this encounter Care Teams Welt Stitch Cleaner Relationship Specialty Start Date End Date Terri Thrasher APRN PCP - General Family Medicine 08/01/18 02/14/21 documented as of this encounter
--- OUTSIDE RECORDS SUMMARY | 2024-01-06 02:35 | XMS_ITS | Encounter Summary ---
Author Organization [facility] [address] Care Team Providers Care Location Manager Name Role Phone Terri Thrasher NAMRATA Primary Care Provider + Reason for Visit * Reason Comments Nicotine Dependence Encounter Details Date Type Department Care Team (Late st Contact Info) Description 10/10/2018 Telephone [place] [address] Dot Garcia APRN [facility] [place] [address] Nicotine Dependence Social History Tobacco Use Types [...] EDT Office Visit Endocrinology at [place] [phone] Alma Delia Martinez MD [facility] [place] [address] 01/17/2024 11:50 AM EDT Appointment MRI at [place] [phone] Dennise Jaimes APRN [facility] [place] [address] 01/17/2024 1:40 PM EDT Office Visit Neurosurgery at [place] [phone] Dennise Jaimes APRN [facility] [place] [address] 02/26/2024 11:00 AM EDT Office Visit Orthopaedics at [place] [phone] Clinic, Dr Alfaro Team None documented as of this encounter Visit Diagnoses Not on filedocumented in this encounter Care Teams Location Manager Relationship Specialty Start Date End Date Terri Thrasher, NAMRATA PCP - General Family Medicine 08/01/18 02/14/21 documented as of this encounter
--- OUTSIDE RECORDS SUMMARY | 2024-01-06 02:35 | XMS_ITS | Encounter Summary ---
Author Organization [facility] [place] [address] Care Team Providers Care Municipal Clerk Name Role Phone Terri Thrasher NAMRATA Primary Care Provider + Reason for Referral * Diagnostic Test (Routine) - Closed Specialty Diagnoses / Procedures Referred By Contac t Referred To Contact Radiology Diagnoses Cerebral aneurysm without rupture Procedures MRI Angiogram Head wo Contrast (Generic) [facility] Neurosurgery [address] [place] [phone] [place] [address] Referral ID Status Reason Start Date Expiration Date V isits Requested Visits Authorized [id number] Closed Specialty Service Requested 08/17/2019 02/16/2021 1 1 Reason for Visit * Diagnostic Test (Routine) - Closed Specialty Diagnoses / Procedures Referred By Contac t Referred To Contact Radiology Diagnoses Cerebral aneurysm without rupture Procedures MRI Angiogram Head wo Contrast (Generic) [facility] Neurosurgery [address] [place] [phone] [place] [address] Referral ID Status Reason Start Date Expiration Date V isits Requested Visits Authorized [id number] Closed Specialty Service Requested 08/17/2019 02/16/2021 1 1 Encounter Details Date Type Department Care Team (Latest Contact Info) Description 11/11/2019 12:13 PM EDT - 11/11/2019 11:59 PM EDT Hospital [place] [address] Eugenio Hernandez MD [facility] [place] [address] Cerebral aneurysm without rupture Discharge Disposition: Home [...] 11:30 AM EDT Office Visit Endocrinology at [place] [phone] Alma Delia Martinez MD [facility] [place] [address] 01/17/2024 11:50 AM EDT [place] [phone] Dennise Jaimes APRN [facility] [place] [address] 01/17/2024 1:40 PM EDT Office Visit Neurosurgery at [place] [phone] Dennise Jaimes APRN [facility] [place] [place] [address] 02/26/2024 11:00 AM EDT Office Visit Orthopaedics at [place] [phone] Clinic, Dr Alfaro Team None documented as [...] please contact the number below. ? Narrative 11/11/2019 3:32 PM EDT EXAMINATION: MRI [...] number below. Electronically signed by: ROSETTA Tavares [facility] ([phone]),at 11/11/2019 3:32 PM Eugenio Hernandez MD IMG MRI ORDERABLES documented in this encounter Visit Diagnoses Diagnosis Cerebral aneurysm without rupture Cerebral aneurysm, nonruptured documented in this encounter Care Teams Municipal Clerk Relationship Specialty Start Date End Date Terri Thrasher APRN PCP - General Family Medicine 08/01/18 02/14/21 documented as of this encounter
--- OUTSIDE RECORDS SUMMARY | 2024-01-06 02:35 | XMS_ITS | Encounter Summary ---
Author Organization [facility] [place] [address] Care Team Providers Care Silk Conditioner Name Role Phone Terri Thrasher NAMRATA Primary Care Provider + Encounter Details Date Type Department Care Team (Late st Contact Info) Description 10/28/2018 11:30 AM EDT Office Visit [place] [address] Romi Thompson Cigarette nicotine dependence without complication [...] - Tobacco Cessation Consultation JARETH Aguero (Kate) [place], [place] [address] FAX: HPI: Holly Mcnally is a 38 y.o. female who is being seen today for tobacco cessation. Type of tobacco used: () Smokeless tobacco () e-cigarette (X)Cigarettes Brand currently smoking: Axel Current amount: 10 ppd Age initiated: 17 [...] Thompson 10/28/18 Thoracic Surgery - Tobacco Cessation [facility] documented in this encounter Plan of Treatment Upcoming Encounters Date Type Department Care Team (Late st Contact Info) Description 01/10/2024 11:30 AM EDT Office Visit Endocrinology at [place] [phone] Alma Delia Martinez MD [facility] [place] [address] 01/17/2024 11:50 [place] [address] Dennise Jaimes, OIL FIELD EQUIPMENT MECHANIC [facility] [place] [address] 01/17/2024 1:40 PM EDT Office [place] [address] Dennise Jaimes, OIL FIELD EQUIPMENT MECHANIC [facility] [place] [address] 02/26/2024 11:00 AM EDT Office Visit Orthopaedics at [place] [phone] Clinic, Dr Alfaro Team None documented as of this encounter Visit Diagnoses Diagnosis Cigarette nicotine dependence without complication Tobacco use disorder documented in this encounter Care Teams Silk Conditioner Relationship Specialty Start Date End Date Terri Thrasher APRN PCP - General Family Medicine 08/01/18 02/14/21 documented as of this encounter
--- OUTSIDE RECORDS SUMMARY | 2024-01-06 02:35 | XMS_ITS | Encounter Summary ---
Author Organization [facility] Address [facility] [place] [address] Care Team Providers Care Municipal Bond Trader Name Role Phone Terri Thrasher NAMRATA Primary Care Provider + Encounter Details Date Type Department Care Team (Late st Contact Info) Description 01/22/2021 Notes Only Neurology at [facility] [address] [place] [address] Timmy Altman MD [facility] [place] [address] Social History Tobacco Use Types Packs/Day Years [...] Altman MD - 01/22/2021 6:41 PM EDT [facility] Conservation Coordinator Attending Neurologist note This note is to document a telephone conversation I had with: Dr. Jillian Otto From [facility] On Holly Mcnally 40 y.o. female 1980 [id number] Information Received: 40-year-old female with known left [...] for patient to contact her provider at [facility], Dr. Eugenio Hernandez, tomorrow. Question(s) from referring [...] will copy the patient's provider here at [facility] with this note. The referring physician was satisfied with the impressions and recommendations. Please note that I have not seen, examined, or evaluated this patient in person or via a video system. Therefore, my impressions and recommendations are based solely on the information received from the referring provider. Jax Altman MD Department of Neurology [facility] documented in this encounter Plan of Treatment Upcoming Encounters Date Type Department Care Team (Late st Contact Info) Description 01/10/2024 11:30 AM EDT Office [place] [phone] Alma Delia Martinez MD [facility] [place] [address] 01/17/2024 11:50 AM EDT Appointment MRI at [address] Dennise Jaimes, NAMRATA [facility] [place] [address] 01/17/2024 1:40 PM EDT Office Visit Neurosurgery at [address] Dennise Jaimes, NAMRATA [facility] [place] [address] 02/26/2024 11:00 AM EDT Office Visit Orthopaedics at [place] [phone] Clinic, Dr Alfaro Team None documented as of this encounter Visit Diagnoses Not on filedocumented in this encounter Care Teams Municipal Bond Trader Relationship Specialty Start Date End Date Terri Thrasher APRN PCP - General Family Medicine 08/01/18 02/14/21 documented as of this encounter
--- OUTSIDE RECORDS SUMMARY | 2024-01-06 02:35 | XMS_ITS | Encounter Summary ---
[place] [address] Care Team Providers Care Seating Captain Name Role Phone Terri Thrasher NAMRATA Primary Care Provider + Reason for Referral * Diagnostic Test (Routine) - Closed Specialty Diagnoses / Procedures Referred By Contac t Referred To Contact Radiology Diagnoses Cerebral aneurysm without rupture Procedures IR Arteriogram Cerebral [facility] Neurosurgery [address] [place] [phone] [facility] [address] Referral ID Status Reason Start Date Expiration Date V isits Requested Visits Authorized [id number] Closed Specialty Service Requested 09/08/2018 09/08/2019 1 1 Reason for Visit * Diagnostic Test (Routine) - Closed Specialty Diagnoses / Procedures Referred By Contac t Referred To Contact Radiology Diagnoses Cerebral aneurysm without rupture Procedures IR Arteriogram Cerebral [facility] Neurosurgery [address] [place] [phone] [facility] [address] Referral ID Status Reason Start Date Expiration Date V isits Requested Visits Authorized [id number] Closed Specialty Service Requested 09/08/2018 09/08/2019 1 1 Encounter Details Date Type Department Care Team (Latest Contact Info) Description 10/07/2018 6:41 AM EDT - 10/07/2018 11:59 PM EDT Hospital [place] [address] Eugenio Hernandez MD [facility] [place] [address] Pre-op testing; Facial droop; Cerebral aneurysm without [...] Ojeda RN - 10/07/2018 8:39 AM EDT [facility] Interventional Radiology Post Angiography Instructions Procedure: [...] or hoildays, call and ask for the vice president sales accounting professional. OR Vascular Department at until 4:45pm. After 4:45pm call and ask for the Vascular resident accounting professional. 10. If you are a diabetic and [...] Brief description of the procedure: ?? R COMMUNICATIONS SENIOR ASSOCIATE access ?? R ICA selection and cerebral [...] : 1980 AGE: 38 y.o. ?? Address: [place] [address] (home) Mobile: Telephone Information: ?? Referring Provider: Eugenio Hernandez REASON FOR VISIT: Diagnostic cerebral angiogram Order Questions Answers Where will study be performed? [facility] [120] Is the patient on anticoagulant [...] EDT Office [place] [address] Alma Delia Martinez MD [facility] [place] [address] 01/17/2024 11:50 AM [place] [address] Dennise Jaimes APRN [facility] [place] [address] 01/17/2024 1:40 PM EDT Office Visit [facility] [place] [address] Dennise Jaimes, ASSOCIATE PROFESSOR OF MANAGEMENT [facility] [place] [address] 02/26/2024 11:00 AM EDT Office Visit Orthopaedics [...] the number below. ? Electronically signed by: Eugenio Hernandez [facility] ([phone]), at 10/21/2018 5:57 PM Narrative 10/21/2018 5:57 PM EDT EXAMINATION: IR [...] 125 cm Glidewire, 0.035 inch J-wire, 5 Welsh Byron sheath, 5Fr vert catheter, Mynx vascular closure device. TECHNIQUE: The patient was brought to the angiography suite. The right groin was sterilely prepped and draped. Using micropuncture set, the femoral artery was accessed and the 5 Welsh pinnacle sheath was placed, and double flushed. 5 Welsh vert catheter was positioned in the descending [...] 0.035 125 cm Glidewire, 0.035 inch J-wire,5 Welsh Byron sheath, 5Fr vert catheter, Mynx vascular closure device. TECHNIQUE: The patient was brought to the angiography suite. The rightgroin was sterilely prepped and draped. Using micropuncture set, the femoral arterywas accessed and the 5 Welsh pinnacle sheath was placed, and double flushed.5 Welsh vert catheter was positioned in the descending [...] number below. Electronically signed by: ROSETTA Galaviz [facility]([phone]), at 10/21/2018 5:57 PM Eugenio Hernandez MD IMG IR ORDERABLES * Platelet count (10/07/2018 6:35 AM EDT) Platelet 292 145 - 357 x10(3)/mc L [facility] Immature Plt % 1.5 0.0 - 7.4 % [facility] Comment: Limitation of the Immature Platelet Fraction (IPF)-May be less reliable when the platelet count is less than 99w939/uL due to statistical imprecision. The IPF value [...] in a decreased state of production. References: [employer] The Clinical Value of the Immature Platelet Fraction (IPF) in Cell Recovery Document Number 10-1143 11/2010 [employer] The Role of the Immature Platelet Fraction (IPF) in the Differential Diagnosis of Thrombocytopenia, Document MKT-10-1209 V05 P0514 Blood specimen (specimen) 10/07/2018 6:35 AM EDT 10/07/2018 7:10 AM EDT Narrative Resulting Agency Comment Spec In Lab Eugenio Hernandez MD HEMATOLOGY ORDERABLE S Performing Organization Address City/State/[facility] Co de Phone Number [facility] [place] [address] documented in this encounter Visit Diagnoses Diagnosis [...] mLs documented in this encounter Care Teams Seating Captain Relationship Specialty Start Date End Date Terri Thrasher, NAMRATA PCP - General Family Medicine 08/01/18 02/14/21 documented as of this encounter
--- OUTSIDE RECORDS SUMMARY | 2024-01-06 02:35 | XMS_ITS | Encounter Summary ---
Author Organization [facility] [place] [address] Care Team Providers Care Furniture Upholsterer Name Role Phone Terri Thrasher NAMRATA Primary Care Provider + Encounter Details Date Type Department Care Team (Late st Contact Info) Description 09/24/2018 12:05 AM EDT Ancillary Procedure [place] [phone] Huang Nicole MD [facility] [place] [address] Social History Tobacco Use Types Packs/Day Years [...] AM EDT Office Visit [place] [phone] Alma Delia Martinez MD [facility] [place] [address] 01/17/2024 11:50 AM EDT [place] [address] Dennise Jaimes APRN [facility] [place] [address] 01/17/2024 1:40 PM EDT Office [place] [address] Dennise Jaimes CHARGE HAND [facility] NEUROSURGERY [place], [place] [phone] 02/26/2024 11:00 AM EDT Office Visit [place] [address] Clinic, Dr Alfaro Team None documented as of this encounter Procedures Procedure Name Priority Date/Time Associated Diagnosis Comments FILM LIBRARY STORAGE ONLY MR HEAD Routine 09/24/2018 12:05 AM EDT documented in this encounter Results * Film Library- Storage Only MR Head (09/24/2018 12:05 AM EDT) Narrative [facility] - 11/07/2018 10:29 AM EDT This exam is auto-finalizing. It's purpose is for storage only. Huang Nicole MD IMG FILM LIBRARY ORD ERABLES [place], [place] documented in this encounter Visit Diagnoses Not on filedocumented in this encounter Care Teams Furniture Upholsterer Relationship Specialty Start Date End Date Terri Thrasher APRN PCP - General Family Medicine 08/01/18 02/14/21 documented as of this encounter
--- OUTSIDE RECORDS SUMMARY | 2024-01-06 02:35 | XMS_ITS | Encounter Summary ---
Author Organization [facility] [place] [address] Care Team Providers Care Critical Care Paramedic Name Role Phone Terri Thrasher APRN Primary Care Provider + Encounter Details Date Type Department Care Team (Late st Contact Info) Description 01/22/2021 6:45 PM EDT Ancillary Procedure [place] [phone] Timmy Altman MD [facility] [address] [place] [address] Social History Tobacco Use Types Packs/Day Years [...] 11:30 AM EDT Office [place] [address] Alma Delia Martinez MD [facility] [place] [address] 01/17/2024 11:50 [place] [address] Dennise Jaimes APRN [facility] [place] [address] 01/17/2024 1:40 PM EDT [place] [phone] Dennise Jaimes APRN [facility] [place] [address] 02/26/2024 11:00 AM EDT Office [place] [address] Clinic, Dr Alfaro Team None documented as of this encounter Procedures Procedure Name Priority Date/Time Associated Diagnosis Comments FILM LIBRARY STORAGE ONLY CT HEAD AND SPINE Routine 01/22/2021 6:43 PM EDT documented in this encounter Results * Film Library- Storage Only CT Head And Spine (01/22/2021 6:43 PM EDT) Narrative [facility] - 01/22/2021 6:43 PM EDT This exam is auto-finalizing. It's purpose is for storage only. Timmy Altman MD IMG FILM LIBRARY ORD ERABLES [place], [place] documented in this encounter Visit Diagnoses Not on filedocumented in this encounter Care Teams Critical Care Paramedic Relationship Specialty Start Date End Date Terri Thrasher APRN PCP - General Family Medicine 08/01/18 02/14/21 documented as of this encounter
--- OUTSIDE RECORDS SUMMARY | 2024-01-06 02:35 | XMS_ITS | Encounter Summary ---
Author Organization [facility] [place] [address] Care Team Providers Care Barge Hand Name Role Phone Claudia vance NAMRATA Primary Care Provider [phone] Encounter Details Date Type Department Care Team (Late st Contact Info) Description 11/24/2021 Telephone [place] [address] Dennise Jaimes APRN [facility] [place] [address] Social History Tobacco Use Types Packs/Day Years [...] 11:30 AM EDT Office Visit [place] [phone] Alma Delia Martinez MD [facility] DR ENDOCRIN[place] [address] 01/17/2024 11:50 AM EDT Appointment MRI at [place] [address] Dennise Jaimes, ERECTING CRANE OPERATOR [facility] [place] [address] 01/17/2024 1:40 PM EDT Office Visit Neurosurgery at [place] [address] Dennise Jaimes, [facility] [place] [address] 02/26/2024 11:00 AM EDT Office Visit Orthopaedics at [place] [address] Clinic, Dr Alfaro Team None documented as of this encounter Visit Diagnoses Not on filedocumented in this encounter Care Teams Barge Hand Relationship Specialty Start Date End Date Claudia Belle APRN [address] [place] [address] PCP - General Family Medicine 11/11/21 02/23/22 documented as of this encounter
--- OUTSIDE RECORDS SUMMARY | 2024-01-06 02:35 | XMS_ITS | Encounter Summary ---
[place] [address] Care Team Providers Care Basic Acoustic Analyst Name Role Phone Lashawn Mcnally APRN Primary Care Provider [phone] Reason for Referral * Diagnostic Test (Routine) - Closed Specialty Diagnoses / Procedures Referred By Jesika t Referred To Contact Radiology Diagnoses Cerebral aneurysm Procedures MRI Angiogram Head wo Contrast (Generic) Dennise Jaimes APRN [facility] [place] [address] [place] [address] Referral ID Status Reason Start Date Expiration Date V isits Requested Visits Authorized [id number] Closed Specialty Service Requested 10/11/2021 04/12/2023 1 1 Encounter Details Date Type Department Care Team (Late Contact Info) Description 10/10/2021 [place] [address] Vanessa Frost RN Anterior cerebral [...] 11:30 AM EDT Office Visit Endocrinology at [place] [phone] Alma Delia Martinez MD [facility] [place] [address] 01/17/2024 11:50 AM EDT Appointment MRI at [place] [phone] Dennise Jaimes, [facility] [place] [address] 01/17/2024 1:40 PM EDT Office [place] [address] Dennise Jaimes, [facility] [place] [address] 02/26/2024 11:00 AM EDT Office [place] [address] Clinic, Dr Alfaro Team None [...] who have questions please contact the health care transition coordinator that requested your imaging first. ? Electronically signed by: Nazario Cedillo MD, [facility] ([phone]), at 11/24/2021 2:42 PM Narrative 11/24/2021 2:42 PM EDT EXAMINATION: MRI ANGIOGRAM HEAD WO CONTRAST (GENERIC) CLINICAL HISTORY: right opthalmic aneurysm TECHNIQUE: MRA of the head performed without contrast. 3-D MIP reconstructions were created. 3-D dnkh-el-axpgon. Axial high-resolution T1 imaging through the [place] was also performed COMPARISON: Previous MRA 11/02/2020 11/11/2019 and 10/17/2018 cerebral angiogram. 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 I have measured it on transverse 3-D zpuk-xn-ybjhjn data images. It measures about 4 mm [...] contrast. 3-D MIP reconstructions were created. 3-D wrou-uz-qjidyw. Axial high-resolution T1 imaging through the[place] was also performed COMPARISON: Previous MRA 11/02/2020 11/11/2019 and 10/17/2018 cerebral angiogram. FINDINGS: Again noted is a small aneurysm at the origin of the right ophthalmicartery. I have measured it on transverse 3-D bvws-na-nqdput data images. It measuresabout 4 mm in [...] patients who have questions please contactthe health care transition coordinator that requested your imaging first. Electronically signed by: Nazario Cedillo MD, [facility]([phone]), at 11/24/2021 2:42 PM Dennise Jaimes LEAD PROGRAMMER IMG MRI ORDERABLES documented in this encounter Visit Diagnoses Diagnosis Anterior cerebral artery aneurysm Cerebral aneurysm, nonruptured Cerebral aneurysm Cerebral aneurysm, nonruptured Cerebral aneurysm Cerebral aneurysm, nonruptured documented in this encounter Care Teams Basic Acoustic Analyst Relationship Specialty Start Date End Date Lashawn Mcnally APRN [address] [place] [address] PCP - General Family Medicine 02/15/21 11/10/21 documented as of this encounter
--- OUTSIDE RECORDS SUMMARY | 2024-01-06 02:35 | XMS_ITS | Encounter Summary ---
Author Organization [facility] [place] [address] Care Team Providers Care Drawbridge Operator Name Role Phone UliLashawn NAMRATA Primary Care Provider [phone] Encounter Details Date Type Department Care Team (Late st Contact Info) Description 04/18/2021 Telephone Neurosurgery at [facility] [place] [phone] Adelso Maravilla Social History Tobacco Use Types [...] 04/18/2021 9:30 AM EST Holly Contreras Uli [id number] Caller: Holly Reason for call: c/o [...] hasany visual changes. * Telephone Encounter - Kmken Adelso L - 04/18/2021 9:22 AM EST Caller: Patient Best number to reach caller: [phone] Reason for call: Patient calling to advise she has pain in her right voodoo (location of aneurysm) that goes down into her jaw and neck. This is the 2nd or 3rd time this has happened. Recent Surgery?: No documented in this encounter Plan of Treatment Upcoming Encounters Date Type Department Care Team (Late st Contact Info) Description 01/10/2024 11:30 AM EDT Office Visit Endocrinology at [place] [phone] Alma Delia Martinez MD [facility] [place] [address] 01/17/2024 11:50 AM EDT Appointment MRI at [address] Dennise Jaimes [facility] [place] [address] 01/17/2024 1:40 PM EDT [place] [address] Dennise Jaimes SKILLED LABOR [facility] [place] [address] 02/26/2024 11:00 AM EDT Office Visit Orthopaedics at [place] [phone] Clinic, Dr Alfaro Team None documented as of this encounter Visit Diagnoses Not on filedocumented in this encounter Care Teams Drawbridge Operator Relationship Specialty Start Date End Date Lashawn Mcnally APRN [address] [place] [address] PCP - General Family Medicine 02/15/21 11/10/21 documented as of this encounter
--- OUTSIDE RECORDS SUMMARY | 2024-01-06 02:35 | XMS_ITS | Encounter Summary ---
[place] [address] Care Team Providers Care Toggle Press Folder And Feeder Name Role Phone Claudia Belle APRN Primary Care Provider [phone] Reason for Referral * Consultation (Routine) - Denied Specialty Diagnoses / Procedures Referred By Jesika t Referred To Contact Rheumatology Diagnoses Pain in joint, multiple sites Abnormal reflex Claudia Belle APRN [address] [place] [address] [facility] Rheumatology [address] [place] [phone] Referral ID Status Reason Start Date Expiration Date V isits Requested Visits Authorized [id number] Denied Consult, Test & Treat 11/13/2021 11/13/2022 6 0 Encounter Details Date Type Department Care Team (Late st Contact Info) Description 11/13/2021 Transcribe Orders eDH Incoming Referrals [phone] Claudia Belle APRN [address] [place], [place] [id number] Pain in joint, multiple sites; Abnormal reflex [...] 11:30 AM EDT Office Visit Endocrinology at [place] [phone] Alma Delia Martinez MD [facility] [place] [address] 01/17/2024 11:50 AM EDT Appointment MRI at [place] [address] Dennise Jaimes, [facility] [place] [address] 01/17/2024 1:40 PM EDT Office Visit Neurosurgery at [place] [address] Dennise Jaimes, [facility] [place] [address] 02/26/2024 11:00 AM EDT Office Visit Orthopaedics at [place] [phone] Clinic, Dr Alfaro Team None Scheduled Referrals Name Type Priority Associated Diagnoses Order Schedule Referral to Rheumatology Outpatient Referral Routine Pain in joint, multiple sites Abnormal reflex Ordered: 11/13/2021 documented as of this encounter Visit Diagnoses Diagnosis Pain in joint, multiple sites Abnormal reflex documented in this encounter Care Teams Toggle Press Folder And Feeder Relationship Specialty Start Date End Date Claudia Belle APRN [address] [place] [address] [address] [place] [address] PCP - General Family Medicine 11/11/21 02/23/22 documented as of this encounter
--- OUTSIDE RECORDS SUMMARY | 2024-01-06 02:35 | XMS_ITS | Encounter Summary ---
[place] [address] Care Team Providers Care Supervisor Production Department Name Role Phone Terri Thrasher NAMRATA Primary Care Provider + Reason for Referral * Diagnostic Test (Routine) - Closed Specialty Diagnoses / Procedures Referred By Jesika maddox Referred To Contact Radiology Diagnoses Cerebral aneurysm without rupture Procedures MRI Angiogram Head wo Contrast (Generic) [facility] [address] [place] [address] [facility] [place] [address] Referral ID Status Reason Start Date Expiration Date V isits Requested Visits Authorized [id number] Closed Specialty Service Requested 08/17/2019 02/16/2021 1 1 Encounter Details Date Type Department Care Team (Late st Contact Info) Description 08/17/2019 Orders [place] [address] Mallory Delgado RN Cerebral aneurysm [...] 11:30 AM EDT Office Visit [place] [phone] Alma Delia Martinez MD [facility] [place] [address] 01/17/2024 11:50 AM EDT Appointment MRI at [place] [phone] Dennise Jaimes, [employer] [facility] [place] [address] 01/17/2024 1:40 PM EDT Office Visit Neurosurgery at [place] [phone] Dennise Jaimes, [facility] [place] [address] 02/26/2024 11:00 AM EDT Office Visit [place] [address] Clinic, Dr Alfaro Team None [...] below. ? Electronically signed by: Lillian Farnsworth [facility] ([phone]), at 11/11/2019 3:32 PM Narrative 11/11/2019 3:32 [...] number below. Electronically signed by: ROSETTA Tavares [facility] ([phone]),at 11/11/2019 3:32 PM Eugenio Hernandez MD IMG MRI ORDERABLES documented in this encounter Visit Diagnoses Diagnosis Cerebral aneurysm without rupture Cerebral aneurysm, nonruptured Cerebral aneurysm without rupture Cerebral aneurysm, nonruptured documented in this encounter Care Teams Supervisor Production Department Relationship Specialty Start Date End Date Terri Thrasher APRN PCP - General Family Medicine 08/01/18 02/14/21 documented as of this encounter
--- OUTSIDE RECORDS SUMMARY | 2024-01-06 02:35 | XMS_ITS | Encounter Summary ---
Author Organization [facility] [place] [address] Care Team Providers Care Title Examiner Name Role Phone Unknown Primary Care Provider Unavailabl e Encounter Details Date Type Department Care Team (Late st Contact Info) Description 09/19/2022 Ancillary Procedure [place]iology [place] [address] Baron Hobson PA [address] [place], [place] [address] Social History Tobacco Use Types Packs/Day Years [...] 11:30 AM EDT Office [place] [address] Alma Delia Martinez MD [facility] [place] [address] 01/17/2024 11:50 AM [place] [address] Dennise Jaimes APRN [facility] [place] [address] 01/17/2024 1:40 PM EDT Office [place] [address] Dennise Jaimes APRN [facility] [place] [address] 02/26/2024 11:00 AM EDT Office [place] [address] Clinic, Dr Alfaro Team None documented as of this encounter Procedures Procedure Name Priority Date/Time Associated Diagnosis Comments FILM LIBRARY STORAGE ONLY MR KNEE Routine 09/19/2022 12:00 AM EDT documented in this encounter Results * Film Library- Storage Only MR Knee (09/19/2022 12:00 AM EDT) Narrative [facility] - 02/11/2023 5:05 AM EDT This exam is auto-finalizing. It's purpose is for storage only. Baron STANFORD IMManish FILM LIBRARY O RDERABLES [place], [place] documented in this encounter Visit Diagnoses Not on filedocumented in this encounter Care Teams Title Examiner Relationship Specialty Start Date End Date Unknown None PCP - General 02/24/22 01/31/23 documented as of this encounter
--- OUTSIDE RECORDS SUMMARY | 2024-01-06 02:35 | XMS_ITS | Encounter Summary ---
[place] [address] Care Team Providers Care Auxiliary Engineer Name Role Phone Terri Thrasher APRN Primary Care Provider + Reason for Referral * Diagnostic Test (Routine) - Closed Specialty Diagnoses / Procedures Referred By Contjose t Referred To Contact Radiology Diagnoses Cerebral aneurysm without rupture Procedures MRI Angiogram Head wo Contrast (Generic) Eugenio Hernandez MD [facility] [place] [address] [place] [address] Referral ID Status Reason Start Date Expiration Date V isits Requested Visits Authorized [id number] Closed Specialty Service Requested 11/12/2019 05/13/2021 1 1 Reason for Visit * Reason Comments Follow-up Encounter Details Date Type Department Care Team (Late st Contact Info) Description 11/11/2019 3:30 PM EDT Office [place] [address] Eugenio Hernandez MD [facility] [place] [address] Cerebral aneurysm without rupture Social [...] 11:30 AM EDT Office Visit Endocrinology at [place] [phone] Alma Delia Martienz MD [facility] [place] [address] 01/17/2024 11:50 AM [place] [address] Dennise Jaimes [facility] [place] [address] 01/17/2024 1:40 PM EDT Office Visit Neurosurgery at [place] [phone] Dennise Jaimes [facility] [place] [address] 02/26/2024 11:00 AM EDT Office Visit Orthopaedics at [place] [phone] Clinic, Dr Alfaro Team None documented as [...] who have questions please contact the health adult live in caregiver that requested your imaging first. ? Electronically signed by: Nazario Cedillo MD, [facility] ([phone]), at 11/02/2020 3:49 PM Narrative 11/02/2020 3:49 [...] motion artifact limiting the study however the [place] is fairly well visualized. The [...] motion artifact limiting the study however the [place] isfairly well visualized. The small [...] patients who have questions please contactthe health adult live in caregiver that requested your imaging first. Eugenio Hernandez MD IMG MRI ORDERABLES documented in this encounter Visit Diagnoses Diagnosis Cerebral aneurysm without rupture Cerebral aneurysm, nonruptured Cerebral aneurysm without rupture Cerebral aneurysm, nonruptured documented in this encounter Care Teams Auxiliary Engineer Relationship Specialty Start Date End Date Terri Thrasher APRN PCP - General Family Medicine 08/01/18 02/14/21 documented as of this encounter
--- OUTSIDE RECORDS SUMMARY | 2024-01-06 02:35 | XMS_ITS | Encounter Summary ---
[place] [address] Care Team Providers Care Customer Experience Associate Name Role Phone Claudia vance Nery OTT Primary Care Provider [phone] Reason for Referral * Diagnostic Test (Routine) - Closed Specialty Diagnoses / Procedures Referred By Jesika t Referred To Contact Radiology Diagnoses Aneurysm of ophthalmic artery Procedures MRI Angiogram Head wo Contrast (Generic) Dennise Jaimes APRN [facility] [place] [address] [place] [address] Referral ID Status Reason Start Date Expiration Date V isits Requested Visits Authorized [id number] Closed Specialty Service Requested 11/24/2021 05/26/2023 1 1 Encounter Details Date Type Department Care Team (Late st Contact Info) Description 11/24/2021 1:00 PM EDT [place] [address] Dennise Jaimes APRN [facility] [place] [address] Aneurysm of ophthalmic artery Social History Tobacco [...] 11:30 AM EDT [place] [address] Alma Delia Martinez MD [facility] [place] [address] 01/17/2024 11:50 [place] [address] Dennise Jaimes, PRESCHOOL TEACHER ASSISTANT [facility] [place] [address] 01/17/2024 1:40 PM EDT [place] [address] Dennise Jaimes APRN [facility] [place] [address] 02/26/2024 11:00 AM EDT [place] [address] Clinic, Dr Alfaro Team None [...] who have questions please contact the health acute care nurse that requested your imaging first. ? Narrative [...] patients who have questions please contactthe health acute care nurse that requested your imaging first. Dennise Jaimes APRN IMG MRI ORDERABLES documented in this encounter Visit Diagnoses Diagnosis Aneurysm of ophthalmic artery Cerebral aneurysm, nonruptured Aneurysm of ophthalmic artery Cerebral aneurysm, nonruptured documented in this encounter Care Teams Customer Experience Associate Relationship Specialty Start Date End Date Claudia Belle APRN [address] [place] [address] [address] [facility] [[email or web address] [address] [place] [address] PCP - General Family Medicine 11/11/21 02/23/22 documented as of this encounter
--- OUTSIDE RECORDS SUMMARY | 2024-01-06 02:35 | XMS_ITS | Encounter Summary ---
Author Organization [facility] [place] [address] Care Team Providers Care Senior Electronics Technician Name Role Phone Unknown Primary Care Provider Unavailabl e Encounter Details Date Type Department Care Team (Late st Contact Info) Description 09/29/2022 Ancillary Procedure [place] [address] Baron Hobson PA [address] [place], [place] [address] Social History Tobacco Use Types Packs/Day Years [...] 11:30 AM EDT Office [place] [address] Alma Delia Martinez MD [facility] [place] [address] 01/17/2024 11:50 AM [place] [address] Dennise Jaimes APRN [facility] [place] [address] 01/17/2024 1:40 PM EDT Office [place] [address] Dennise Jaimes APRN [facility] [place] [address] 02/26/2024 11:00 AM EDT Office [place] [address] Clinic, Dr Alfaro Team None documented as of this encounter Procedures Procedure Name Priority Date/Time Associated Diagnosis Comments FILM LIBRARY STORAGE ONLY DX KNEE Routine 09/29/2022 12:00 AM EDT documented in this encounter Results * Film Library- Storage Only DX Knee (09/29/2022 12:00 AM EDT) Narrative [facility] - 02/11/2023 5:05 AM EDT This exam is auto-finalizing. It's purpose is for storage only. Baron DORADO FILM LIBRARY O RDERABLES [place], [place] documented in this encounter Visit Diagnoses Not on filedocumented in this encounter Care Teams Senior Electronics Technician Relationship Specialty Start Date End Date Unknown None PCP - General 02/24/22 01/31/23 documented as of this encounter
--- OUTSIDE RECORDS SUMMARY | 2024-01-06 02:35 | XMS_ITS | Encounter Summary ---
Author Organization [facility] [place] [address] Care Team Providers Care Account Services Coordinator Name Role Phone Unknown Primary Care Provider Unavailabl e Encounter Details Date Type Department Care Team (Late st Contact Info) Description 06/29/2022 Ancillary Procedure [place] [address] Baron Hobson PA [address] [place], [place] [address] Social History Tobacco Use Types Packs/Day Years [...] 11:30 AM EDT Office [place] [address] Alma Delia Martinez MD [facility] [place] [address] 01/17/2024 11:50 AM [place] [address] Dennise Jaimes APRN [facility] [place] [address] 01/17/2024 1:40 PM EDT Office [place] [address] Dennise Jaimes APRN [facility] [place] [address] 02/26/2024 11:00 AM EDT Office [place] [address] Clinic, Dr Alfaro Team None documented as of this encounter Procedures Procedure Name Priority Date/Time Associated Diagnosis Comments FILM LIBRARY STORAGE ONLY DX KNEE Routine 06/29/2022 12:00 AM EST documented in this encounter Results * Film Library- Storage Only DX Knee (06/29/2022 12:00 AM EST) Narrative [facility] - 02/11/2023 5:05 AM EDT This exam is auto-finalizing. It's purpose is for storage only. Baron STANFORD IMManish FILM LIBRARY O RDERABLES [place], [place] documented in this encounter Visit Diagnoses Not on filedocumented in this encounter Care Teams Account Services Coordinator Relationship Specialty Start Date End Date Unknown None PCP - General 02/24/22 01/31/23 documented as of this encounter
--- OUTSIDE RECORDS SUMMARY | 2024-01-06 02:35 | XMS_ITS | Encounter Summary ---
Author Organization [facility] [place] [address] Care Team Providers Care Audio Recording Engineer Name Role Phone Terri Thrasher NAMRATA Primary Care Provider + Reason for Visit * Reason Comments Nicotine Dependence * Consultation (Routine) - Closed Specialty Diagnoses / Procedures Referred By Contac t Referred To Contact Thoracic Surgery Diagnoses Nicotine dependence, cigarettes, uncomplicated Tobacco abuse counseling Eugenio Hernandez MD [facility] DI[place] [address] Dot Garcia APRN [facility] CARDIOTHORACIC [place] [address] Referral ID Status Reason Start Date Expiration Date V isits Requested Visits Authorized [id number] Closed Consult, Test & Treat 09/03/2018 09/03/2019 1 1 Encounter Details Date Type Department Care Team (Late st Contact Info) Description 09/16/2018 12:30 PM EDT Office [place] [address] Dot Garcia APRN [facility] CARDIOTHORACIC [place] [address] Nicotine dependence, cigarettes, uncomplicated; Tobacco abuse counseling [...] Nicotine Replacement Therapy , September 02, 2012: https://www.federalregister.gov/articles//2013-38976/modifications-to- pavrixgp-mo-mnjtmcnr-aeadcnmvscb-diyfumb-ngovyxhr-hpi-iyth-tvt-qeavqvd-ycxqd-ghm documented in this encounter Progress Notes * Dot Garcia APRN - 09/16/2018 12:30 PM EDT Thoracic Surgery - Tobacco Cessation Consultation Dot Garcia APRN [place] [address] FAX: HPI: Holly Mcnally is a 38 [...] file Gets together: Not on file Attends hindu service: Not on file Active member of [...] in places where it is forbidden ex [facility] No Yes ? 0 3. Which cigarette [...] APRN 09/16/18 Thoracic Surgery - Tobacco Cessation [facility] documented in this encounter Plan of Treatment Upcoming Encounters Date Type Department Care Team (Late st Contact Info) Description 01/10/2024 11:30 AM EDT Office Visit Endocrinology at [place] [phone] Alma Delia Martinez MD [facility] [place] [address] 01/17/2024 11:50 AM EDT Appointment MRI at [place] [phone] Dennise Jaimes [facility] [place] [address] 01/17/2024 1:40 PM EDT Office Visit Neurosurgery at [place] [phone] Dennise Jaimes [facility] [place] [address] 02/26/2024 11:00 AM EDT Office Visit Orthopaedics at [place] [phone] Clinic, Dr Alfaro Team None documented as of this encounter Visit Diagnoses Diagnosis Nicotine dependence, cigarettes, uncomplicated Tobacco abuse counseling Counseling on substance use and abuse documented in this encounter Care Teams Audio Recording Engineer Relationship Specialty Start Date End Date Terri Thrasher APRN PCP - General Family Medicine 08/01/18 02/14/21 documented as of this encounter
--- OUTSIDE RECORDS SUMMARY | 2024-01-06 02:35 | XMS_ITS | Encounter Summary ---
Author Organization [facility] [place] [address] Care Team Providers Care Tube Operator Name Role Phone Unknown Primary Care Provider [...] 11:30 AM EDT Office Visit Endocrinology at [place] [phone] Alma Delia Martinez MD [facility] [place] [address] 01/17/2024 11:50 AM EDT Appointment MRI at [place] [phone] Dennise Jaimes APRN [facility] [place] [address] 01/17/2024 1:40 PM EDT Office Visit Neurosurgery at [place] [phone] Dennise Jaimes APRN [facility] [place] [address] 02/26/2024 11:00 AM EDT Office [place] [address] Clinic, Dr Alfaro Team None documented as of this encounter Visit Diagnoses Not on filedocumented in this encounter Care Teams Tube Operator Relationship Specialty Start Date End Date Unknown None PCP - General 02/24/22 01/31/23 documented as of this encounter
--- OUTSIDE RECORDS SUMMARY | 2024-01-06 02:36 | XMS_ITS | Encounter Summary ---
Author Organization [facility] [place] [address] Care Team Providers Care Hat Lining Paster Name Role Phone Terri Thrasher NAMRATA Primary Care Provider + Encounter Details Date Type Department Care Team (Late st Contact Info) Description 09/08/2018 Telephone [place] [address] Jenny Ferrara Social History Tobacco Use Types [...] from school Best number to reach caller: [phone] Reason for call: Pt called to inquire [...] 11:30 AM EDT Office Visit Endocrinology at [place] [address] Alma Delia Martinez MD [facility] [place] [address] 01/17/2024 11:50 [place] [phone] Dennise Jaimes APRN [facility] [place] [address] 01/17/2024 1:40 PM EDT Office Visit Neurosurgery at [address] Dennise Jaimes APRN [facility] [place] [address] 02/26/2024 11:00 AM EDT Office Visit [place] [phone] Clinic, Dr Alfaro Team None documented as of this encounter Visit Diagnoses Not on filedocumented in this encounter Care Teams Hat Lining Paster Relationship Specialty Start Date End Date Terri Thrasher APRN PCP - General Family Medicine 08/01/18 02/14/21 documented as of this encounter
--- OUTSIDE RECORDS SUMMARY | 2024-01-06 02:36 | XMS_ITS | Encounter Summary ---
Author Organization [facility] [place] [address] Care Team Providers Care Manager Of Global Name Role Phone Randell Haji MD Primary Care Provider [phone] Reason for Visit * Reason Comments Follow-up Encounter Details Date Type Department Care Team (Late st Contact Info) Description 02/27/2017 11:00 AM EDT Office [place] [address] Shabana Romo AIR TRANSPORTATION PROVIDER [facility] [place] [address] Chronic mastitis, unspecified laterality Social History Tobacco [...] October of 2015 to discuss management of mcc right gary ductal mastitis. 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 She does smoke (she andher plan [...] EDT Office Visit Endocrinology at [place] [phone] Alma Delia Martinez MD [facility] [place] [address] 01/17/2024 11:50 AM EDT Appointment MRI at [place] [phone] Dennise Jaimes APRN [facility] [place] [address] 01/17/2024 1:40 PM EDT Office Visit Neurosurgery at [place] [phone] Dennise Jaimes APRN [facility] [place] [address] 02/26/2024 11:00 AM EDT Office Visit Orthopaedics at [place] [phone] Clinic, Dr Alfaro Team None documented as of this encounter Visit Diagnoses Diagnosis Chronic mastitis, unspecified laterality documented in this encounter Care Teams Manager Of Global Relationship Specialty Start Date End Date Randell Haji MD [address] [place] [phone] PCP - General 04/25/10 07/31/18 documented as of this encounter
--- OUTSIDE RECORDS SUMMARY | 2024-01-06 02:36 | XMS_ITS | Encounter Summary ---
Author Organization [facility] [place] [address] Care Team Providers Care Cutting Tool Sharpener Name Role Phone Randell Haji MD Primary Care Provider [phone] Encounter Details Date Type Department Care Team (Latest Contact Info) Description 10/07/2015 12:31 PM EDT - 10/07/2015 11:59 PM EDT Hospital [place] [address] Melissa Lehman MD [facility] [place] [address] Breast pain Discharge Disposition: Home Social History [...] 11:30 AM EDT Office Visit Endocrinology at [place] [phone] Alma Delia Martinez MD [facility] [place] [address] 01/17/2024 11:50 [place] [address] Dennise Jaimes APRN [facility] [place] [address] 01/17/2024 1:40 PM EDT [place] [address] Dennise Jaimes APRN [facility] [place] [address] 02/26/2024 11:00 AM EDT Office [place] [address] Clinic, Dr Alfaro Team None [...] Mastodynia documented in this encounter Care Teams Cutting Tool Sharpener Relationship Specialty Start Date End Date Randell Haji MD [address] [place] [phone] PCP - General 04/25/10 07/31/18 documented as of this encounter
--- OUTSIDE RECORDS SUMMARY | 2024-01-06 02:36 | XMS_ITS | Encounter Summary ---
Author Organization [facility] Address [facility] [place] [address] Care Team Providers Care Welder Tool And Die Name Role Phone Terri Thrasher WASTEWATER ENGINEER Primary Care Provider + Reason for Visit * Reason Comments Establish Care left wrist pain * Consultation (Routine) - Closed Specialty Diagnoses / Procedures Referred By Jesika maddox Referred To Contact Orthopaedics Diagnoses Achilles tendinitis, left leg LEFT ACHILLES TENDINITIS Terri Thrasher, WASTEWATER ENGINEER [address] [place] [address] [facility] Orthopaedics [address] [place] [phone] Referral ID Status Reason Start Date Expiration Date V isits Requested Visits Authorized [id number] Closed Consult, Test & Treat Connection Center 08/01/2018 08/01/2019 1 1 Encounter Details Date Type Department Care Team (Late st Contact Info) Description 08/12/2018 11:00 AM EDT Office [place] [phone] Agatha Barragan PA [facility] [place] [address] Carpal tunnel syndrome on left Social History [...] NAME: Holly Mcnally AGE: 37 y.o. MR#: [id number] DATE OF VISIT: 08/12/2018 CHIEF COMPLAINT: New [...] extension of MCP, PIP, DIP and isolation Freezer Worker strength: Comparable to contralateral side + tinnels [...] 11:30 AM EDT Office [place] [phone] Alma Delia Martinez MD [facility] [place] [address] 01/17/2024 11:50 AM EDT Appointment MRI at [place] [phone] Dennise Jaimes, [facility] [address] 01/17/2024 1:40 PM EDT Office Visit Neurosurgery at [place] [phone] Dennise Jaimes, [facility] [place] [address] 02/26/2024 11:00 AM EDT Office Visit Orthopaedics at [place] [phone] Clinic, Dr Alfaro Team None documented as of this encounter Visit Diagnoses Diagnosis Carpal tunnel syndrome on left Carpal tunnel syndrome documented in this encounter Care Teams Welder Tool And Die Relationship Specialty Start Date End Date Terri Thrasher APRN PCP - General Family Medicine 08/01/18 02/14/21 documented as of this encounter
--- OUTSIDE RECORDS SUMMARY | 2024-01-06 02:36 | XMS_ITS | Encounter Summary ---
Author Organization [facility] [place] [address] Care Team Providers Care Administrative Services Coordinator Name Role Phone Terri Thrasher NAMRATA Primary Care Provider + Reason for Referral * Consultation (Routine) - Closed Specialty Diagnoses / Procedures Referred By Contac t Referred To Contact Thoracic Surgery Diagnoses Nicotine dependence, cigarettes, uncomplicated Tobacco abuse counseling Eugenio Hernandez MD [facility] [place] [address] Dot Garcia APRN [facility] [place] [address] Referral ID Status Reason Start Date Expiration Date V isits Requested Visits Authorized [id number] Closed Consult, Test & Treat 09/03/2018 09/03/2019 1 1 Reason for Visit * Reason Comments Advice Only Right infundibulum v s 4mm outpouching on CTA * Consultation (Routine) - Closed Specialty Diagnoses / Procedures Referred By Contac t Referred To Contact Neurosurgery Diagnoses Right infundibulum vs 4mm outpouching on CTA without corresponding symptoms. Mil Darby MD [facility] [place] [address] Eugenio Hernandez MD [facility] [place] [address] Referral ID Status Reason Start Date Expiration Date V isits Requested Visits Authorized [id number] Closed Consult, Test & Treat 08/12/2018 08/12/2019 1 1 Encounter Details Date Type Department Care Team (Late st Contact Info) Description 09/03/2018 1:00 PM EDT Office Visit Neurosurgery at [facility] [place] [address] Eugenio Hernandez MD [facility] [place] [address] Nicotine dependence, cigarettes, uncomplicated; Tobacco abuse counseling; [...] Nicotine Replacement Therapy , September 02, 2012: https://www.federalregister.gov/articles//2013-00741/modifications-to- bkgpwmba-oy-miqeexmg-nicqmdkhrzr-rvtjyrv-ybrfrwfb-nxl-wekf-aps-iymuxwb-aqhbz-wev documented in this encounter Progress Notes * Eugenio Hernandez MD - 09/03/2018 1:00 PM EDT Interventional Neuroradiology Clinic Initial Visit Office Note Note Author: Eugneio Hernandez MD Chief Complaint: Cerebral aneurysm History [...] 11:30 AM EDT Office [place] [address] Alma Delia Martinez MD [facility] [place] [address] 01/17/2024 11:50 [place] [address] Jaimes, Dennise L, [facility] [place] [address] 01/17/2024 1:40 PM EDT Office [place] [phone] Dennise Jaimes, [facility] [place] [address] 02/26/2024 11:00 AM EDT Office [place] [phone] Clinic, Dr Alfaro Team None Scheduled Referrals [...] nonruptured documented in this encounter Care Teams Administrative Services Coordinator Relationship Specialty Start Date End Date Terri Thrasher APRN PCP - General Family Medicine 08/01/18 02/14/21 documented as of this encounter
--- OUTSIDE RECORDS SUMMARY | 2024-01-06 02:36 | XMS_ITS | Encounter Summary ---
Author Organization [facility] [place] [address] Care Team Providers Care Anthropometrist Name Role Phone Terri Thrasher APRN Primary Care Provider + Encounter Details Date Type Department Care Team (Late st Contact Info) Description 09/04/2018 Telephone [place] [address] Veronica Michael Social History Tobacco Use Types [...] to be called into [facility] in [place]. Can you put in order too for angio? Veronica Soria * Telephone Encounter - Veronica Michael - 09/04/2018 9:13 AM EDT Spoke to pt she would like to proceed with angio and embo, needs plavix called into [facility] as well requesting order from Dr. Hernandez for 5/6. * Telephone Encounter - Jesi Lunsford - 09/04/2018 9:02 AM EDT [facility] [place] * Telephone Encounter - Veronica Michael [...] 11:30 AM EDT Office Visit [place] [address] Alma Delia Martinez MD [facility] [place] [address] 01/17/2024 11:50 AM EDT [place] [address] Dennise Jaimes APRN [facility] [place] [address] 01/17/2024 1:40 PM EDT Office [place] [phone] Dennise Jaimes APRN [facility] [place] [address] 02/26/2024 11:00 AM EDT Office Visit [place] [address] Clinic, Dr Alfaro Team None documented as of this encounter Visit Diagnoses Not on filedocumented in this encounter Care Teams Anthropometrist Relationship Specialty Start Date End Date Terri Thrasher APRN PCP - General Family Medicine 08/01/18 02/14/21 documented as of this encounter
--- OUTSIDE RECORDS SUMMARY | 2024-01-06 02:36 | XMS_ITS | Encounter Summary ---
Author Organization [facility] [place] [address] Care Team Providers Care Scroll Saw Operator Name Role Phone Randell Haji MD Primary Care Provider [phone] Encounter Details Date Type Department Care Team (Late st Contact Info) Description 02/11/2017 Telephone [place] [phone] Lola Kumar Social History Tobacco Use Types [...] 11:30 AM EDT Office [place] [phone] Alma Delia Martinez MD [facility] [place] [address] 01/17/2024 11:50 AM [place] [address] Jaimes, Dennise L, [facility] [place] [address] 01/17/2024 1:40 PM EDT Office [place] [phone] Dennise Jaimes, [facility] [place] [address] 02/26/2024 11:00 AM EDT Office [place] [address] Clinic, Dr Alfaro Team None documented as of this encounter Visit Diagnoses Not on filedocumented in this encounter Care Teams Scroll Saw Operator Relationship Specialty Start Date End Date Randell Haji MD [address] [place] [phone] PCP - General 04/25/10 07/31/18 documented as of this encounter
--- OUTSIDE RECORDS SUMMARY | 2024-01-06 02:36 | XMS_ITS | Encounter Summary ---
Author Organization [facility] [place] [address] Care Team Providers Care Coastal Tug Mate Name Role Phone Terri Thrasher APRN Primary Care Provider + Encounter Details Date Type Department Care Team (Late st Contact Info) Description 08/06/2018 Ancillary Procedure [place] [phone] Terri Thrasher, NAMRATA [address] [place] [address] Social History Tobacco Use Types Packs/Day Years [...] 11:30 AM EDT Office Visit Endocr[place]ology [place] [phone] Alma Delia Martinez MD [facility] [place] [address] 01/17/2024 11:50 AM EDT Appointment [place] [address] Dennise Jaimes APRN [facility] [place] [address] 01/17/2024 1:40 PM EDT Office Visit Neurosurgery [place] [address] Dennise Jaimes APRN [facility] [place] [address] 02/26/2024 11:00 AM EDT Office Visit Orthopaedics [place] [address] Clinic, Dr Alfaro Team None documented as of this encounter Procedures Procedure Name Priority Date/Time Associated Diagnosis Comments FILM LIBRARY STORAGE ONLY MR ANKLE Routine 08/06/2018 12:00 AM EST documented in this encounter Results * Film Library- Storage Only MR Ankle (08/06/2018 12:00 AM EST) Narrative RAD - 08/11/2018 3:05 AM EDT This exam is for storage only and is auto-finalizing. Terri Thrasher APRN [facility] FILM LIBRARY ORD ERABLES [place], [place] documented in this encounter Visit Diagnoses Not on filedocumented in this encounter Care Teams Coastal Tug Mate Relationship Specialty Start Date End Date Terri Thrasher APRN PCP - General Family Medicine 08/01/18 02/14/21 documented as of this encounter
--- OUTSIDE RECORDS SUMMARY | 2024-01-06 02:36 | XMS_ITS | Encounter Summary ---
Author Organization [place] [address] Care Team Providers Care Cord Cutter Name Role Phone Nathen Duffy MD Primary Care Provider [phone] Reason for Visit * Reason Comments Breast Problem * Consultation (Routine) - Closed Specialty Diagnoses / Procedures Referred By Contac t Referred To Contact Hematology and Oncology Diagnoses Breast pain Nathen Duffy MD [address] [place] [phone] [facility] On[facility] [address] [place] [address] Referral ID Status Reason Start Date Expiration Date Visits Re quested Visits Authorized [id number] Closed 09/15/2015 09/14/2016 1 1 Encounter Details Date Type Department Care Team (Late st Contact Info) Description 10/07/2015 11:00 AM EDT Office [place] [phone] Shabana Romo, ORCHID TRANSPLANTER [facility] [place] [address] Chronic mastitis of right breast Social History [...] this encounter Progress Notes * Shabana Romo, ORCHID TRANSPLANTER - 10/07/2015 12:45 PM EDT Ms. Mcnally [...] Will have her outside mammogram reviewed at [facility]. Surgical follow up based on outcome of [...] 11:30 AM EDT Office [place] [address] Alma Delia Martinez MD [facility] [place] [address] 01/17/2024 11:50 AM EDT Appointment MRI at [place] [address] Dennise Jaimes, [facility] [place] [address] 01/17/2024 1:40 PM EDT Office Visit Neurosurgery at [place] [address] Dennise Jaimes, [facility] [place] [address] 02/26/2024 11:00 AM EDT Office Visit Orthopaedics at [place] [address] Clinic, Dr Alfaro Team None documented as of this encounter Visit Diagnoses Diagnosis Chronic mastitis of right breast documented in this encounter Care Teams Cord Cutter Relationship Specialty Start Date End Date Nathen Duffy MD [address] [place] [phone] PCP - General 04/25/10 07/31/18 documented as of this encounter
--- OUTSIDE RECORDS SUMMARY | 2024-01-06 02:36 | XMS_ITS | Encounter Summary ---
Author Organization [facility] [place] [address] Care Team Providers Care Business Management Consultant Name Role Phone Terri Thrasher APRN Primary Care Provider + Encounter Details Date Type Department Care Team (Latest Contact Info) Description 08/12/2018 10:45 AM EDT - 08/12/2018 4:32 PM EDT Hospital Encounter XRay at [address] [place] [phone] Jaden Richter MD [facility] [place] [address] Left wrist pain Discharge Disposition: Home Social [...] 11:30 AM EDT Office Visit [place] [address] Alma Delia Martinez MD [facility] [place] [address] 01/17/2024 11:50 AM EDT [place] [address] Dennise Jaimes BAR ROLLER [facility] [place] [address] 01/17/2024 1:40 PM EDT Office [place] [phone] Dennise Jaimes BAR ROLLER [facility] [place] [address] 02/26/2024 11:00 AM EDT Office [place] [address] Clinic, Dr Alfaro Team None [...] forearm documented in this encounter Care Teams Business Management Consultant Relationship Specialty Start Date End Date Terri Thrasher APRN PCP - General Family Medicine 08/01/18 02/14/21 documented as of this encounter
--- OUTSIDE RECORDS SUMMARY | 2024-01-06 02:36 | XMS_ITS | Encounter Summary ---
Author Organization [facility] [place] [address] Care Team Providers Care Theatrical Trouper Name Role Phone Randell Haji MD Primary Care Provider [phone] Reason for Visit * Reason Onset Date Comments Follow-up 10/13/2015 Encounter Details Date Type Department Care Team (Late st Contact Info) Description 10/13/2015 Telephone [place] [address] Shabana Romo APRN [facility] [place] [address] Follow-up Social History Tobacco Use Types Packs/Day [...] 11:30 AM EDT Office Visit [place] [address] Alma Delia Martinez MD [facility] [place] [address] 01/17/2024 11:50 AM EDT [place] [address] Dennise Jaimes, NURSE HEAD [facility] [place] [address] 01/17/2024 1:40 PM EDT Office [place] [address] Dennise Jaimes, [facility] [place] [address] 02/26/2024 11:00 AM EDT Office Visit Orthopaedics at [place] [phone] Clinic, Dr Alfaro Team None documented as of this encounter Visit Diagnoses Not on filedocumented in this encounter Care Teams Theatrical Trouper Relationship Specialty Start Date End Date Randell Haji MD [address] [place] [phone] PCP - General 04/25/10 07/31/18 documented as of this encounter
--- OUTSIDE RECORDS SUMMARY | 2024-01-06 02:36 | XMS_ITS | Encounter Summary ---
Author Organization [facility] [place] [address] Care Team Providers Care Window Machine Operator Name Role Phone Randell Haji MD Primary Care Provider [phone] Reason for Visit * Reason Onset Date Comments Follow-up 10/12/2015 Encounter Details Date Type Department Care Team (Late st Contact Info) Description 10/12/2015 Telephone [place] [address] Shabana Romo APRN [facility] [place] [address] Follow-up Social History Tobacco Use Types Packs/Day [...] 11:30 AM EDT Office [place] [phone] Alma Delia Martinez MD [facility] [place] [address] 01/17/2024 11:50 AM EDT Appointment MRI at [place] [address] Dennise Jaimes, LAW FIRM RECEPTIONIST [facility] [place] [address] 01/17/2024 1:40 PM EDT Office Visit Neurosurgery at [place] [address] Dennise Jaimes, [facility] [place] [address] 02/26/2024 11:00 AM EDT Office Visit Orthopaedics at [address] Clinic, Dr Alfaro Team None documented as of this encounter Visit Diagnoses Not on filedocumented in this encounter Care Teams Window Machine Operator Relationship Specialty Start Date End Date Randell Haji MD [address] [place] [phone] PCP - General 04/25/10 07/31/18 documented as of this encounter
--- OUTSIDE RECORDS SUMMARY | 2024-01-06 02:36 | XMS_ITS | Encounter Summary ---
Author Organization [facility] [place] [address] Care Team Providers Care Hardscape Foreman Name Role Phone Terri Thrasher APRN Primary Care Provider + Reason for Referral * Consultation (Routine) - Closed Specialty Diagnoses / Procedures Referred By Contac t Referred To Contact Neurology Mil Darby MD [facility] [place] [address] [facility] Neurology [address] [place] [phone] Referral ID Status Reason Start Date Expiration Date V isits Requested Visits Authorized [id number] Closed Consult, Test & Treat 08/12/2018 08/12/2019 1 1 * Consultation (Routine) - Closed Specialty Diagnoses / Procedures Referred By Contac t Referred To Contact Neurosurgery Diagnoses Right infundibulum vs 4mm outpouching on CTA without corresponding symptoms. Mil Darby MD [facility] [place] [address] Eugenio Hernandez MD [facility] [place] [address] Referral ID Status Reason Start Date Expiration Date V isits Requested Visits Authorized [id number] Closed Consult, Test & Treat 08/12/2018 08/12/2019 1 1 Reason for Visit * Reason Comments Dizziness Encounter Details Date Type Department Care Team (Late st Contact Info) Description 08/12/2018 4:33 PM EDT - 08/12/2018 11:26 PM EDT Emergency Emergency Department [facility] [place] [address] Nathaniel Venegas MD [facility] [place] [address] Dizziness Discharge Disposition: Home Social History Tobacco [...] be sent through Care Everywhere. * Dizziness (Belarusian) * Migraine Headache (Belarusian) documented in this encounter ED Notes * [...] L Elbow flexion 5/5 R, 5/5 L Personnel Research Psychologist LE: 5/5 R, 5/5 L Hip flexion [...] gait 1821 Normal sinus rhythm, normal axis, [place], QRS and QTC are within normal limits. There is no evidence of arrhythmia or ischemic changes. EKG 12 Lead Wed Aug 13, 2018202 Culture Reflexed: No 0204 4 mm outpouching of the right ophthalmic artery origin, question aneurysm versus infundibulum. Normal CTA neck CT Angiogram [place] & [place] - Medications and fluid administered: [...] Negative mcL Appearance UA Clear Clear Spec [place] UA 1.013 1.002 - 1.030 Color UA [...] is significant for: CT Angiogram [place] & [place] Final Result 4 mm outpouching [...] exertion 3. Family history of sudden The [place] Syncope Rule: 1. History of CHF 2. Hct<30 3. EKG abnormalities 4. Present SOB 5. SBP<90 [place] Syncope Criteria, ([facility]astity Emerg Med. 2005;47(5):455-6. Epub [...] Return precautions were discussed with the pt iMl Darby MD EM Resident, PGY-2 08/12/18 6:18 [...] She was seen in the ED at [facility] and received IV fluids, reports that she [...] LMP was mid July. Social Lives in [facility]) w/ and 2 children (7 and 4). [...] bilaterally in upper and lower extremities, normal wccrcy-au-cvya bilaterally, mild intention tremor close to target, [...] Negative mcL Appearance UA Clear Clear Spec [place] UA 1.013 1.002 - 1.030 Color UA [...] changes Imaging EXAMINATION: CT ANGIOGRAM [place] AND [place] ?? FINDINGS: CTA neck: Great vessel origins are widely patent. Subclavian arteries are normal. Bilateral common and internal carotid arteries are normal course and caliber. The vertebral arteries are normal. ?? CTA HEAD: 4 mm outpouching at the origin of the right ophthalmic artery. Probable infundibulum of the left ophthalmic artery origin. The MCAs, real estate account executive, and ACAs are normal. Complete [place]. Intradural vertebral arteries, basilar artery, [...] acute hemorrhage or mass effect. ?? MDM: Hloly Mcnally is a 37 y.o. female who [...] 11:30 AM EDT Office Visit Endocrinology at [place] [phone] Alma Delia Martinez MD [facility] [place] [address] 01/17/2024 11:50 AM EDT Appointment MRI at [place] [phone] Dennise Jaimes, [facility] [place] [address] 01/17/2024 1:40 PM EDT [place] [address] Dennise Jaimes, [facility] [place] [address] 02/26/2024 11:00 AM EDT Office Visit Orthopaedics at [place] [phone] Clinic, Dr Alfaro Team None Scheduled Referrals Name Type Priority Associated Diagnoses Order Schedule Referral to Neuro Interventional Radiology Outpatient Referral Routine Ordered: 08/12/2018 Referral to Neurology Outpatient Referral Routine Ordered: 08/12/2018 documented as of this encounter Procedures Procedure Name Priority Date/Time Associated Diagnosis Comments CT CAROTIDS AND [place] W CONTRAST STAT 08/12/2018 7:[address] HEAD WO CONTRAST (GENERIC) STAT 08/12/2018 7:57 PM EDT EKG 12-LEAD STAT 08/12/2018 4:19 PM EDT HEMOGRAM STAT 08/12/2018 3:45 PM EDT DIFFERENTIAL, AUTOMATED STAT 08/12/2018 3:45 PM EDT BLUE TUBE HOLD STAT 08/12/2018 3:45 PM EDT CBC (WITH DIFF) STAT 08/12/2018 3:45 PM EDT BASIC METABOLIC PANEL STAT 08/12/2018 3:45 PM EDT URINALYSIS MICROSCOPIC EXAM STAT 08/12/2018 3:43 PM EDT URINALYSIS WITH REFLEX CULTURE STAT 08/12/2018 3:43 PM EDT POCT URINE STAT 08/12/2018 documented in this encounter Results * CT Angiogram [place] (08/12/2018 7:57 PM EDT) Anatomical Region Laterality Modality Neck, Head Computed Tomogra phy Impressions 08/12/2018 8:40 PM EDT 4 mm outpouching of the right ophthalmic artery origin, question aneurysm versus infundibulum. Normal CTA neck. Thank you for letting us participate in the care of this patient. For questions regarding this report, please contact the number below. ? Electronically signed by: Mily De Anda [facility] ([phone]), at 08/12/2018 8:40 PM Narrative 08/12/2018 8:40 PM EDT EXAMINATION: CT ANGIOGRAM [place] AND [place] CLINICAL HISTORY: patient off balance, [...] the left ophthalmic artery origin. The MCAs, real estate account executive, and ACAs are normal. Complete [place]. Intradural vertebral arteries, basilar artery, and hemorrhage branches are normal... Procedure Note Mily De Anda MD - 08/12/2018 EXAMINATION: CT ANGIOGRAM [place] CLINICAL HISTORY: patient off balance, [...] of the left ophthalmic artery origin. The MCAs,real estate account executive, and ACAs are normal. Complete [place]. Intradural vertebralarteries, basilar artery, and hemorrhage branches are normal... IMPRESSION 4 mm outpouching of the right ophthalmic artery origin, question aneurysmversus infundibulum. Normal CTA neck. Thank you for letting us participate in the care of this patient. Forquestions regarding this report, please contact the number below. Nathaniel Venegas MD IMG CT ORDERABLES * CT Head wo Contrast (Generic) (08/12/2018 7:57 PM EDT) Anatomical Region Laterality Modality Head Computed Tomogra phy Impressions 08/12/2018 8:34 PM EDT No acute hemorrhage or mass effect. Thank you for letting us participate in the care of this patient. For questions regarding this report, please contact the number below. ? Electronically signed by: Mily De Anda [facility] ([phone]), at 08/12/2018 8:34 PM Narrative 08/12/2018 8:34 PM EDT EXAMINATION: CT [...] (Bezet) 390 ms MUSE SYSTEM Calculated P [place] 27 degrees MUSE SYSTEM Calculated R [place] 27 degrees MUSE SYSTEM Calculated T [place] 29 degrees MUSE SYSTEM INTERPRETATION Sinus bradycardia Otherwise normal ECG No previous ECGs available Confirmed by MD CHANDRIKA, DERREK ([id number]) on 08/12/2018 11:07:51 PM MUSE SYSTEM 08/12/2018 4:19 PM EDT 08/12/2018 11:07 PM EDT Nathaniel Venegas MD ECG ORDERABLES Performing Organization Address City/[facility]/ZIP Co de Phone Number MUSE SYSTEM * Blue Tube HOLD (08/12/2018 3:45 PM EDT) Pathologist [facility] Blue Hold Sample in lab. [facility] Blood specimen (specimen) Venous Draw / Unknown 08/12/2018 3:45 PM EDT 08/12/2018 4:15 PM EDT Mack Kirk MD HEMATOLOGY ORDERABLE S [facility] [place] [address] * (ABNORMAL) Differential, Automated (08/12/2018 3:45 PM EDT) Pathologist [facility] Neutrophil % 46.9 % [facility] Neutrophil Absolute 4.68 1.70 - 6.10 x10(3)/mc L [facility] Lymph % 38.9 % [facility] Lymphocytes Abs 3.9(H) 0.9 - 3.2 x10(3)/mc L [facility] Monocyte % 6.9 % [facility] Monocyte Abs 0.7 0.3 - 0.9 x10(3)/mc L [facility] Eos % 6.1 % [facility] Eosinophils Abs 0.6(H) 0.0 - 0.4 x10(3)/ L [facility] Basophil % 0.9 % [facility] Baso Absolute 0.1 0.0 - 0.1 x10(3)/ L [facility] Immature Gran % 0.30 % [facility] Comment: Immature granulocytes(IG's)percentage and absolute count will include metamyelocytes, myelocytes, and promyelocytes. Blood smears from CBCs yielding IG's will be scanned manually for concordance. If this scan disagrees with the automated IG or if promyelocytes are noted, a manual differential will be performed. Immature Gran Absolute 0.03 0.00 - 0.04 x10(3)/[facility] Blood specimen (specimen) 08/12/2018 3:45 PM EDT 08/12/2018 4:15 PM EDT Narrative Resulting Agency Comment Spec In Lab Mack Kirk MD HEMATOLOGY ORDERABLE S [facility] [place] [address] * (ABNORMAL) Hemogram (08/12/2018 3:45 PM EDT) White Blood Cell 10.0(H) 4.0 - 9.5 x10(3)/ L [facility] Red Blood Cell 4.70 4.00 - 5.21 x10(6)/ L [facility] Hemoglobin 14.5 11.7 - 15.5 gm/dL [facility] Hematocrit 42.4 35.7 - 45.8 % [facility] Mean Cell Volume 90.2 82.6 - 94.4 fL [facility] Mean Cell Hemoglobin 30.9 27.1 - 32.0 pg [facility] Mean Cell Hemoglobin Concentration 34.2 31.7 - 35.0 gm/dL [facility] Platelet 311 145 - 357 x10(3)/mc L [facility] RDW Standard Deviation 40.9 37.0 - 46.0 fL [facility] RDW coefficient of variation 12.5 11.5 - 14.1 % [facility] Mean Platelet Volume 9.2 7.6 - 12.9 fL [facility] NRBC% auto 0.0 % [facility] NRBC Absolute 0.000 0.000 - 0.000 x10(3)/mc L [facility] Blood specimen (specimen) 08/12/2018 3:45 PM EDT 08/12/2018 4:15 PM EDT Narrative Resulting Agency Comment Spec In Lab Mack Kirk MD HEMATOLOGY ORDERABLE S Performing Organization Address City/State/[facility] Co de Phone Number [facility] [place] [address] * (ABNORMAL) Basic Metabolic Panel (non-fasting) (08/12/2018 3:45 PM EDT) Glucose 85 65 - 199 mg/dL [facility] Comment:Diabetes: >=200 mg/d L plus symptoms Blood Urea Nitrogen 7(L) 8 - 18 mg/dL [facility] Creatinine 0.75 0.70 - 1.20 mg/dL [facility] Sodium 143 135 - 145 mmol/L [facility] Potassium 3.9 3.5 - 5.0 mmol/L [facility] Comment: Please note: ??Patients with WBC >100,000 may have falsely elevated Potassium levels. ??For accurate Potassium quantification in these patients send serum separator tube (gold top) for subsequent determinations. ??Contact the Clinical Chemistry Laboratory if there are any questions. Chloride 103 98 - 107 mmol/L [facility] Carbon Dioxide 26 22 - 31 mmol/L [facility] Anion Gap 14 5 - 15 mmol/L [facility] Calcium 10.0 8.5 - 10.5 mg/dL [facility] Est Glomerular Filtration Rate 103 >=60 mL/min/1. 73 m?? [facility] Comment: The eGFR was calculated using the CKD-EPI equation. As with all creatinine based estimates of kidney function, eGFR values calculated with the CKD-EPI equation are not accurate in patients with acute kidney failure, extremes of body mass or the acutely ill. http://[employer]/[facility]nkf eGFR 120 >=60 mL/min/1. 73 m?? [facility] Comment: The eGFR was calculated using the CKD-EPI equation. As with all creatinine based estimates of kidney function, eGFR values calculated with the CKD-EPI equation are not accurate in patients with acute kidney failure, extremes of body mass or the acutely ill. http://[employer]/[facility] Blood specimen (specimen) 08/12/2018 3:45 PM EDT 08/12/2018 4:15 PM EDT Narrative Resulting Agency Comment Spec In Lab Nathaniel Venegas MD CHEMISTRY ORDERABLES Performing Organization Address City/[facility]/ZIP Co de Phone Number [facility] [place] [address] * Urinalysis Microscopic Exam (08/12/2018 3:43 PM EDT) RBC, Urine 3 0 - 4 /HPF [facility] WBC, Urine 0 0 - 5 /HPF [facility] Urine specimen obtained by clean catch procedure (specimen) 08/12/2018 3:43 PM EDT 08/12/2018 4:18 PM EDT Narrative Resulting Agency Comment Spec In Lab Mack Kirk MD URINE ORDERABLES Performing Organization Address City/[facility]/ZIP Co de Phone Number [facility] [place] [address] * (ABNORMAL) Urinalysis with reflex Culture (08/12/2018 3:43 PM EDT) Glucose, Urine Dipstick Negative Negative mg/dL [facility] Protein, Urine Dipstick Negative Negative mg/dL [facility] Bilirubin, Urine Dipstick Negative Negative mg/dL [facility] Comment: Clinical correlation required for positive Urine Bilirubin results as false positive may occur with some drugs and drug related products. If a false positive is suspected a serum total bilirubin should be considered if clinically indicated. Urobilinogen, Urine Dipstick Normal Normal mg/dL [facility] pH, Urn (dipstick) 6.0 5.0 - 8.0 [facility] Blood, Urine Dipstick Small(A) Negative mg/dL [facility] Ketone, Urine Dipstick Negative Negative mg/dL [facility] Nitrite, Urine Dipstick Negative Negative [facility] Leukocytes, Urine Dipstick Negative Negative [facility] Appearance, Urine Dipstick Clear Clear [facility] Specific [place] Urine Automated 1.013 1.002 - 1.030 [facility] Color, Urine Dipstick Yellow Yellow [facility] Reflex to Culture No [facility] Urine specimen obtained by clean catch procedure (specimen) 08/12/2018 3:43 PM EDT 08/12/2018 4:18 PM EDT Narrative Resulting Agency Comment Spec In Lab Nathaniel Venegas MD URINE ORDERABLES [facility] [place] [place] [address] * POCT urine (08/12/2018) POC Urine HCG [...] 1,000 mg, Oral, ONCE, 1 dose, On e 08/12/18 at 1809, Maximum dose of acetaminophen is 4000 mg from all sources in 24 hours., STAT Given 08/12/2018 6:33 PM EDT 1,000 mg iohexol (OMNIPAQUE) 350 mg/mL solution 0-200 mL 0-200 mL, Intravenous, ONCE PRN, 1 dose, Starting on e 08/12/18 at 1944, Until e 08/12/18 at 1945, Per Protocol, Warning Vesicant/Irritant Medication [...] 1,000 mg, Oral, ONCE, 1 dose, On e 08/12/18 at 1809, Maximum dose of acetaminophen is 4000 mg from all sources in 24 hours., STAT 1833 (Given - Provid er: Joan Palencia RN) lactated Ringers 1,000 mL IV bolus (COMPLETED) at 2,000 mL/hr, Intravenous, ONCE, 1 dose, On e 08/12/18 at 1856 1856 (New Bag - Prov ider: Wilfred Hu RN)2103 (Stopped - Provider: Dianna Olivas NRP) sodium chloride 0.9% 500 mL IV bolus Intravenous, ONCE, 1 dose, On e 08/12/18 at 1809 1903 (Not Given - Pr ovider: Joan Palencia RN - Reason: See comment - Comment: LR ordered) PRN Medication Order 08/10/2018 08/11/2018 08/12/2018 iohexol (OMNIPAQUE) 350 mg/mL solution 0-200 mL (COMPLETED) 0-200 mL, Intravenous, ONCE PRN, 1 dose, Starting on Sat08/12/18 at 1944, Until Tu08/12/18 at 194, Per Protocol, Warning Vesicant/Irritant Medication , Radiology Contrast, Routine 1944 (Given - Provid er: Jamal Brady) documented in this encounter Care Teams Hardscape Foreman Relationship Specialty Start Date End Date Terri Thrasher APRN PCP - General Family Medicine 08/01/18 02/14/21 documented as of this encounter
--- OUTSIDE RECORDS SUMMARY | 2024-01-06 02:36 | XMS_ITS | Encounter Summary ---
Author Organization [facility] [place] [address] Care Team Providers Care Cell Operation Supervisor Name Role Phone Randell Haji MD Primary Care Provider [phone] Encounter Details Date Type Department Care Team (Late st Contact Info) Description 06/08/2016 Ancillary Procedure [place] [phone] Eh Brunner PA [address] [place], [place] [address] Social History Tobacco Use Types Packs/Day Years [...] 11:30 AM EDT Office [place] [phone] Alma Delia Martinez MD [facility] [place] [address] 01/17/2024 11:50 [place] [phone] Dennise Jaimes APRN [facility] [place] [address] 01/17/2024 1:40 PM EDT [place] [phone] Dennise Jaimes, SIXTH GRADE TEACHER [facility] [place] [address] 02/26/2024 11:00 AM EDT [place] [address] Clinic, Dr Alfaro Team None [...] Eh [facility] FILM LIBRARY ORD ERABLES [place], [place] documented in this encounter Visit Diagnoses Not on filedocumented in this encounter Care Teams Cell Operation Supervisor Relationship Specialty Start Date End Date Randell Haji MD [address] [place] [phone] PCP - General 04/25/10 07/31/18 documented as of this encounter
--- OUTSIDE RECORDS SUMMARY | 2024-01-06 02:36 | XMS_ITS | Encounter Summary ---
Author Organization [facility] [place] [address] Care Team Providers Care Construction Project Engineer Name Role Phone Randell Haji MD Primary Care Provider [phone] Encounter Details Date Type Department Care Team (Late st Contact Info) Description 09/15/2015 Orders Only Hematology and Oncology at [place] [phone] Shabana Romo [facility] [place] [address] Breast pain Social History Tobacco Use Types [...] 11:30 AM EDT Office Visit Endocrinology at [place] [phone] Alma Delia Martinez MD [facility] [place] [address] 01/17/2024 11:50 AM EDT Appointment MRI at [place] [phone] Dennise Jaimes [facility] [place] [address] 01/17/2024 1:40 PM EDT Office [place] [address] Dennise Jaimes APRN [facility] [place] [address] 02/26/2024 11:00 AM EDT Office [place] [phone] Clinic, Dr Alfaro Team None documented as of this encounter Visit Diagnoses Diagnosis Breast pain Mastodynia documented in this encounter Care Teams Construction Project Engineer Relationship Specialty Start Date End Date Randell Haji MD [address] [place] [phone] PCP - General 04/25/10 07/31/18 documented as of this encounter
--- OUTSIDE RECORDS SUMMARY | 2024-01-06 02:36 | XMS_ITS | Encounter Summary ---
Author Organization [facility] [place] [address] Care Team Providers Care Crop Specialist Name Role Phone Randell Haji MD Primary Care Provider [phone] Encounter Details Date Type Department Care Team (Late st Contact Info) Description 04/30/2018 Ancillary Procedure [place] [phone] Terri Thrasher, DESIGN TECHNICIAN [address] [place] [phone] Social History Tobacco Use Types Packs/Day Years [...] 11:30 AM EDT Office [place] [phone] Alma Delia Martinez MD [facility] [place] [address] 01/17/2024 11:50 [place] [address] Dennise Jaimes, DESIGN TECHNICIAN [facility] [place] [address] 01/17/2024 1:40 PM EDT [place] [address] Dennise Jaimes APRN [facility] [place] [address] 02/26/2024 11:00 AM EDT Office [place] [address] Clinic, Dr Alfaro Team None [...] Thrasher APRN IMG FILM LIBRARY ORD ERABLES [place], [place] documented in this encounter Visit Diagnoses Not on filedocumented in this encounter Care Teams Crop Specialist Relationship Specialty Start Date End Date Randell Haji MD [address] [place] [phone] PCP - General 04/25/10 07/31/18 documented as of this encounter
--- NOTE | 2024-01-06 11:55 | DI.RAD_ITS ---
Exam(s) XR FOOT LT COMPLETE EXAM: XR FOOT LT COMPLETE CLINICAL HISTORY: Left foot pain,m79.672. TECHNIQUE: 2D digital imaging was performed. COMPARISON: CR XR FOOT RT COMPLETE from 01/06/2024 FINDINGS: 3 views No evidence of acute fracture or diastasis of the Lisfranc joint. Bone density is normal. No osseou s lesions nor erosions evident. Tiny inferior calcaneal spur noted. There is dorsal soft tissue swe lling over the metatarsals but no fractures. No radiopaque foreign body. IMPRESSION: No acute osseous findings in the foot. DATA REPOSITORY: RADIATION DOSE DELIVERED:
--- NOTE | 2024-01-06 11:55 | DI.RAD_ITS ---
Exam(s) XR FOOT RT COMPLETE EXAM: XR FOOT RT COMPLETE CLINICAL HISTORY: Right foot pain,m79.671. TECHNIQUE: 2D digital imaging was performed. COMPARISON: CR XR FOOT LT COMPLETE from 01/06/2024 FINDINGS: 3 views No evidence of fracture or diastasis of the Lisfranc joint. Great toe metatarsophalangeal joint appe ars unremarkable. Bone density normal. No osseous lesions. No erosions at the articulations of the foot. IMPRESSION: No acute osseous findings in the foot. DATA REPOSITORY: RADIATION DOSE DELIVERED:
== END ==
PROVIDERS: PCP Physician Assistant Medical; Visit Provider Podiatrist
DX: M79.672 Pain in left foot (principal); M79.671 Pain in right foot
CPT/HCPCS: 73630

== ENCOUNTER → 2024-01-27 12:44 | Outpatient (BNVA) | payer MEDICARE, MEDICAID, SELFPAY | PROVIDERS: PCP Physician Assistant Medical; Referring Provider Physician Assistant Medical; Visit Provider Podiatrist | DX: M25.572 Pain in left ankle and joints of left foot (principal); M76.72 Peroneal tendinitis, left leg; M72.2 Plantar fascial fibromatosis; M67.02 Short Achilles tendon (acquired), left ankle | CPT/HCPCS: 99213 ==

== ENCOUNTER 2024-01-29 02:01 | Outpatient (CLI) | payer MEDICARE, MEDICAID, SELFPAY ==
--- OUTSIDE RECORDS SUMMARY | 2024-01-29 02:20 | XMS_ITS | Encounter Summary ---
Author Organization [facility] [place] [address] Care Team Providers Care Computer System Specialist Name Role Phone Baron Hobson Primary Care Provider [phone]- [phone] Encounter Details Date Type Department Care Team (Late st Contact Info) Description 11/08/2023 Telephone [place] [address] Bindu Tamayo RN Social History Tobacco Use [...] 10:02 AM EDT Copied from [facility] #[id number]. Topic: Specialty Dept CRMs - Triage >> [...] clinic at if possible. Please contact at [phone]. documented in this encounter Plan of Treatment Upcoming Encounters Date Type Department Care Team (Late st Contact Info) Description 02/26/2024 10:10 AM EDT Appointment MRI at [place] [phone] Dennise Jaimes, [facility] [address] 02/26/2024 11:00 AM EDT Office Visit Orthopaedics at [place] [phone] Clinic, Dr Alfaro Team None 03/05/2024 9:40 AM EDT TH Visit (TeleHealth) Neurosurgery at [place] [phone] Dennise Jaimes, [facility] [address] documented as of this encounter Visit Diagnoses Not on filedocumented in this encounter Care Teams Computer System Specialist Relationship Specialty Start Date End Date Baron Hobson PA [address] [place] [address] PCP - General Family Medicine 02/01/23 documented as of this encounter
--- OUTSIDE RECORDS SUMMARY | 2024-01-29 02:20 | XMS_ITS | Encounter Summary ---
Author Organization [facility] [place] [address] Care Team Providers Care Histology Tech Name Role Phone Baron Hobson Primary Care Provider [phone]- [phone] Encounter Details Date Type Department Care Team (Late st Contact Info) Description 02/01/2023 Transcribe Orders eDH Incoming Referrals [phone] Baron Hobson PA [address] [place] [address] Social History Tobacco Use Types [...] 02/26/2024 10:10 [place] [phone] Dennise Jaimes APRN [facility] [place] [address] 02/26/2024 11:00 AM EDT Office [place] [address] Thaddeus, Dr Alfaro Team None 03/05/2024 9:40 AM EDT TH Visit (TeleHealth) [place] [address] Dennise Jaimes APRN [facility] [place] [address] documented as of this encounter Visit Diagnoses Not on filedocumented in this encounter Care Teams Histology Tech Relationship Specialty Start Date End Date Baron Hobson PA [address] [place] [address] PCP - General Family Medicine 02/01/23 documented as of this encounter
--- OUTSIDE RECORDS SUMMARY | 2024-01-29 02:20 | XMS_ITS | Encounter Summary ---
Author Organization [facility] Address [address] [place] [address] Care Team Providers Care Health Director Name Role Phone Randell Haji MD Primary Care Provider [phone] Encounter Details Date Type Department Care Team (Late st Contact Info) Description 04/04/2011 - 04/04/2011 23:59 EDT Hospital Encounter [address] [address] Amira Steen MD [address] [facility], [address] [place] [phone] Social History Tobacco Use Types Packs/Day Years Used Date Smoking Tobacco: Never Assessed Sex and Gender Information Value Date Recorded Sex Assigned at Not on file Gender Identity Choose not to disclose 13:02 EDT Sexual Orientation Not on file documented as of this encounter Miscellaneous Notes * Scanned Note-Null - Healthcare Risk Control Consultant, Scan - 04/05/2011 1100 EDT documented in this encounter Plan of Treatment Upcoming Encounters Date Type Department Care Team (Late st Contact Info) Description 02/11/2024 13:15 EDT Office Visit [facility] Psychiatry - [address] [phone] Zafar Sutton MD [address] [place] [address], [address] [place] [phone] Jax Brown MD [address] [place] [phone] documented as of this encounter Visit Diagnoses Not on filedocumented in this encounter Care Teams Health Director Relationship Specialty Start Date End Date Randell Haji MD [address] [place] [address] PCP - General 04/04/11 12/12/23 documented as of this encounter
--- OUTSIDE RECORDS SUMMARY | 2024-01-29 02:20 | XMS_ITS | Encounter Summary ---
Author Organization [facility] [place] [address] Care Team Providers Care Laborer Shellfish Processing Name Role Phone Unknown Primary Care Provider Unavailabl e Encounter Details Date Type Department Care Team (Late st Contact Info) Description 12/27/2022 [place] [address] Dennise Jaimes APRN [facility] [place] [address] Social History Tobacco Use Types [...] 02/26/2024 10:10 [place] [address] Dennise Jaimes, [facility] [place] [address] 02/26/2024 11:00 AM EDT [place] [phone] Clinic, Dr Alfaro Team None 03/05/2024 9:40 AM EDT TH Visit (TeleHealth) [place] [address] Dennise Jaimes, [facility] [place] [address] documented as of this encounter Visit Diagnoses Not on filedocumented in this encounter Care Teams Laborer Shellfish Processing Relationship Specialty Start Date End Date Unknown None PCP - General 02/24/22 01/31/23 documented as of this encounter
--- OUTSIDE RECORDS SUMMARY | 2024-01-29 02:20 | XMS_ITS | Encounter Summary ---
Author Organization [facility] [place] [address] Care Team Providers Care Automation Engineer Name Role Phone Baron Hobson Primary Care Provider [phone] Encounter Details Date Type Department Care Team [...] 02/26/2024 10:10 AM [place] [address] Dennise Jaimes APRN [facility] [place] [address] 02/26/2024 11:00 AM EDT Office [place] [address] Clinic, Dr Alfaro Team None 03/05/2024 9:40 AM EDT TH Visit (TeleHealth) [place] [address] Dennise Jaimes APRN [facility] [place] [address] documented as of this encounter Visit Diagnoses Not on filedocumented in this encounter Care Teams Automation Engineer Relationship Specialty Start Date End Date Baron Hobson PA [address] [place] [address] PCP - General Family Medicine 02/01/23 documented as of this encounter
--- OUTSIDE RECORDS SUMMARY | 2024-01-29 02:20 | XMS_ITS | Encounter Summary ---
Author Organization [facility] Address [address] [place] [address] Care Team Providers Care Gym Manager Name Role Phone Unknown, Provider Primary Care Provider [phone] Encounter Details Date Type Department Care Team (Late st Contact Info) Description 03/15/2011 Results Only Imaging [facility] [phone] Boubacar Hough MD [address] [place] [address] [address] [place], [place] [phone] Social History Tobacco Use Types Packs/Day Years [...] Info) Description 02/11/2024 13:15 EDT Office Visit [facility] Psychiatry - S [address] 7[address] Zafar Sutton MD [address] [place] [address], [address] [place] [address] Jax Brown MD [address] [place] [address] documented as of this encounter Procedures Procedure Name Priority Date/Time Associated Diagnosis Comments GROUP HOME ULTRASCREEN (INCLUDES SEQUENTIAL SCREEN) 04/04/2011 16:12 EDT documented in this encounter Results * GROUP HOME ULTRASCREEN (04/04/2011 16:12 EDT) Anatomical Region Laterality [...] of Ultrasound Findings: Transabdominal US. U/S machine: [employer] 9. U/S view: limited by adiposity. Maternal Structures: Right Ovary: Normal w/ simple cyst. Cysts Right Ovary: Cyst 1: Mean value: 36 mm. D1: 33 mm. D2: 35 mm. D3: 39 mm. Volume: 24 ml. Simple cyst. Left Ovary: not examined. Report Summary: Impression: NOTE: This study was ordered as an NT ONLY so maternal and anatomy assessments were not performed. 30175 Nuchal translucency measurement This is a etienne [...] screening, you may still send serum to [facility] for MSAFP alone to screen for neural [...] of Ultrasound Findings: Transabdominal US. U/S machine: [employer] 9. U/S view: limited by adiposity. Maternal Structures: Right Ovary: Normal w/ simple cyst. Cysts Right Ovary: Cyst 1: Mean value: 36 mm. D1: 33 mm. D2: 35 mm. D3: 39 mm. Volume: 24 ml. Simple cyst. Left Ovary: not examined. Report Summary: Impression: NOTE: This study was ordered as an NT ONLY so maternal and anatomy assessments were not performed. [address]201 Nuchal translucency measurement This is a etienne [...] screening, you may still send serum to [facility] for MSAFP alone to screen for neural [...] ... ... ... Boubacar Hough MD IMG GROUP HOME ORDERABLE S documented in this encounter Visit Diagnoses Not on filedocumented in this encounter Care Teams Gym Manager Relationship Specialty Start Date End Date Unknown, Provider, PCP - General 07/06/09 04/03/11 documented as of this encounter
--- OUTSIDE RECORDS SUMMARY | 2024-01-29 02:20 | XMS_ITS | Encounter Summary ---
Author Organization [facility] Address [address] [place] [address] Care Team Providers Care Cryogenics Repairer Name Role Phone Randell Haji MD Primary Care Provider [phone] Baron Hobson PA-C Primary Care Provider + Encounter Details Date Type Department Care Team (Late st Contact Info) Description 01/10/2021 Lab Requisition [facility] [address] [place] [address] Outr Resulting Lab, Provider Social History Tobacco [...] Description 02/11/2024 13:15 EDT Office Visit [facility] - S [place] [address] [place], [place] [address] Zafar Sutton MD [address] [place] [address], [address] [place] [address] Jax Brown MD [address] [place] [address] documented as of this encounter Procedures Procedure Name Priority Date/Time Associated Diagnosis Comments ZZCOVID-19 TEST [facility] PCR Today 01/10/2021 14:30 EDT COVID-19 TESTING Routine 01/10/2021 14:3 0 EDT documented in this encounter Results * COVID-19 TEST [facility] PCR (01/10/2021 14:30 EDT) Swab ENTIRE NASOPHARYNX / Unknown 01/10/2021 14:30 EDT 01/11/2021 15:40 EDT Provider Outr Resulting Lab MICROBIOLOGY - GENERAL ORDERABLES [facility] [address] [place] [address] * COVID-19 TESTING (01/10/2021 14:30 EDT) COVID-19 rt-PCR Result Negative Negative 01/12/2021 12:23 EDT [facility] Comment: This test has not [...] performed using the enoch SARS-CoV-2 assay ([employer] on the Enoch 6800 System Performing Lab Enoch 6800 [facility] 01/12/2021 12:23 EDT [facility] Swab 01/10/2021 14:3 0 EDT 01/11/2021 15:40 EDT Provider Outr Resulting Lab MICROBIOLOGY - GENERAL ORDERABLES [facility] [address] [place] [address] documented in this encounter Visit Diagnoses Not on filedocumented in this encounter Care Teams Cryogenics Repairer Relationship Specialty Start Date End Date Randell Haji MD [address] [place] [address] PCP - General 04/04/11 12/12/23 Baron Hobson PA-C [address] [place] [address] PCP - General 12/13/23 documented as of this encounter
--- OUTSIDE RECORDS SUMMARY | 2024-01-29 02:20 | XMS_ITS | Encounter Summary ---
Author Organization [facility] Address [address] [place] [address] Care Team Providers Care Inserter Operator Name Role Phone Unknown, Provider Primary Care Provider [phone] Encounter Details Date Type Department Care Team (Late st Contact Info) Description 12/24/2003 Results Only [facility] [address] [place] [address] Saurav Barker, ACTING SECTION CHIEF Social History Tobacco Use Types Packs/Day Years [...] Info) Description 02/11/2024 13:15 EDT Office Visit [facility] Psychiatry - S [address] [address] Zafar Sutton MD [address] [place] [address], [address] [place] [address] Jax Brown MD [address] [place] [address] documented as of this encounter Procedures Procedure Name Priority Date/Time Associated Diagnosis Comments CYTOPATHOLOGY Routine 12/24/2003 0:00 EDT documented in this encounter Results * CYTOPATHOLOGY (12/24/2003 0:00 EDT) Pathology Report: CYTOPATHOLOGY REPORT Reports generated via electronic interface contain original data; however they are lacking the format of the original report. Caution should be taken when reading/interpreti ng unformatted reports. Name: ? YUNG DAY ? Accession #: ? [id number] : ? 1980 (Age: 23) ??F ?Collect [...] APRN PATHOLOGY ORDER ANA DESIREE MONTIEL [address] [place] [address] documented in this encounter Visit Diagnoses Not on filedocumented in this encounter Care Teams Inserter Operator Relationship Specialty Start Date End Date Unknown, Provider, PCP - General 07/06/09 04/03/11 documented as of this encounter
--- OUTSIDE RECORDS SUMMARY | 2024-01-29 02:20 | XMS_ITS | Encounter Summary ---
Author Organization [facility] [place] [address] Care Team Providers Care Mr Teacher Name Role Phone Baron Hobson Primary Care Provider [phone] Encounter Details Date Type Department Care Team (Latest Contact Info) Description 01/10/2024 1:25 PM EDT Laboratory Appointment Lab [address] [place] [address] Thyroid nodule Social History Tobacco Use Types [...] 02/26/2024 10:10 AM [place] [address] Dennise Jaimes APRN [facility] [place] [address] 02/26/2024 11:00 AM EDT Office [place] [address] Clinic, Dr Alfaro Team None 03/05/2024 9:40 AM EDT TH Visit (TeleHealth) [place] [address] Dennise Jaimes APRN [facility] [place] [address] documented as of this encounter Procedures Procedure Name Priority Date/Time Associated Diagnosis Comments TSH CASCADE Routine 01/10/2024 12:20 PM EDT Thyroid nodule documented in this encounter Results * TSH Pickett (01/10/2024 12:20 PM EDT) Thyroid Stimulating Hormone 1.80 0.27 - 4.20 mcIU/mL 01/10/2024 1:18 PM EDT [facility] Comment: Reference Interval (mcIU/mL): ?? Females: ? First Trimester: 0.23-3.88 ? Second Trimester: 0.22-3.90 ? Third Trimester: 0.44-4.66 Blood VENOUS BLOOD SPECIMEN / Unknown Venipuncture / Unknown 01/10/2024 12:20 PM EDT 01/10/2024 12:20 PM EDT Poncho De La Cruz MD CHEMISTRY ORDERABLES [facility] [place] [address] documented in this encounter Visit Diagnoses Diagnosis Thyroid nodule Nontoxic uninodular goiter documented in this encounter Care Teams Mr Teacher Relationship Specialty Start Date End Date Baron Hobson PA [address] [place] [address] PCP - General Family Medicine 02/01/23 documented as of this encounter
--- OUTSIDE RECORDS SUMMARY | 2024-01-29 02:20 | XMS_ITS | Encounter Summary ---
Author Organization [facility] [place] [address] Care Team Providers Care Environmental Services Attendant Name Role Phone Baron Hobson Primary Care Provider [phone]- [phone] Encounter Details Date Type Department Care Team (Latest Contact Info) Description 01/10/2024 Travel Social History Tobacco Use Types Packs/Day [...] 02/26/2024 10:10 AM ED[place] [address] Dennise Jaimes APRN [facility] [place] [address] 02/26/2024 11:00 AM EDT Office [place] [address] Clinic, Dr Alfaro Team None 03/05/2024 9:40 AM EDT TH Visit (TeleHealth) [place] [address] Dennise Jaimes APRN [facility] [place] [address] documented as of this encounter Visit Diagnoses Not on filedocumented in this encounter Care Teams Environmental Services Attendant Relationship Specialty Start Date End Date Baron Hobson PA [address] [place] [address] PCP - General Family Medicine 02/01/23 documented as of this encounter
--- OUTSIDE RECORDS SUMMARY | 2024-01-29 02:20 | XMS_ITS | Encounter Summary ---
Author Organization [facility] Address [address] [place] [address] Care Team Providers Care Police Investigator Name Role Phone Randell Haji MD Primary Care Provider [phone] Encounter Details Date Type Department Care Team (Late st Contact Info) Description 03/25/2015 Results Only [facility] [phone] Cande Tejada MD [address] [place] [phone] Social History Tobacco Use Types Packs/Day [...] Info) Description 02/11/2024 13:15 EDT Office Visit [facility] Psychiatry - S [address] [address] Zafar Sutton MD [address] [place] [address], [address] [place] [address] Jax Brown MD [address] [place] [address] documented as of this encounter Procedures Procedure [...] reading/interpret ing unformatted reports. Name: ? YUNG MCNALLY ? Accession #: ? [id number] ? : ? 1980 (Age: 34) ??F [...] lobulated adipose tissue. No masses are identified. Lead Database Developer sections are submitted as 1 and 2. Time removed from patient: 1010 hrs on 03/25/2015 Time in formalin: 1100 hrs on 03/25/2015 Time out of formalin: 1900 hrs on 03/28/2015 Ashwini Villa 03/28/2015 11:54 AM End of Report [facility] 03/25/2015 8:36 EDT 03/28/2015 8:36 EDT Cande Tejada MD PATHOLOGY ORDERABLES [facility] [address] [place] [address] documented in this encounter Visit Diagnoses Not on filedocumented in this encounter Care Teams Police Investigator Relationship Specialty Start Date End Date Randell Haji MD [address] [place] [address] PCP - General 04/04/11 12/12/23 documented as of this encounter
--- OUTSIDE RECORDS SUMMARY | 2024-01-29 02:20 | XMS_ITS | Encounter Summary ---
Author Organization [facility] [place] [address] Care Team Providers Care Kitchen Clerk Name Role Phone Baron Hobson Primary Care Provider [phone] Encounter Details Date Type Department Care Team (Late st Contact Info) Description 11/08/2023 [place] [address] Bindu Tamayo RN Social History Tobacco Use [...] 02/26/2024 10:10 AM EDT Appointment MRI at [place] [phone] Dennise Jaimes APRN [facility] [place] [address] 02/26/2024 11:00 AM EDT Office [place] [address] Clinic, Dr Alfaro Team None 03/05/2024 9:40 AM EDT TH Visit (TeleHealth) [place] [address] Dennise Jaimes NUTRITION PROGRAM INSTRUCTOR [facility] [place] [place] [address] documented as of this encounter Visit Diagnoses Not on filedocumented in this encounter Care Teams Kitchen Clerk Relationship Specialty Start Date End Date Baron Hobson PA [address] [place] [address] PCP - General Family Medicine 02/01/23 documented as of this encounter
--- OUTSIDE RECORDS SUMMARY | 2024-01-29 02:20 | XMS_ITS | Encounter Summary ---
Author Organization [facility] Address [address] [place] [address] Care Team Providers Care Sole Leveler Machine Name Role Phone Unknown, Provider Primary Care Provider Encounter Details Date Type Department Care Team (Late st Contact Info) Description 07/07/2009 7:41 EST - 07/07/2009 12:38 EST Hospital Encounter [facility] Perioperative Services- [address] [address] Ryan Thompson MD [address] [facility], Level 5 [place] [phone] Discharge Disposition: Discharged to Other Facility Social [...] to be transported via ambulance back to [facility]. 1038--Dr Thompson in to speak to pt. Pt not required to void [facility]. 1100--Phone call from Dr Haji, referred to Dr Thompson fro questions re: Pt's disposition home vs. [facility] 1139--oral care given 1145--taking ice chips 1205--notified Dr Velez of headache, she will write order 1228--report to Amrita Esquivel RN of [facility] who will accompany pt in transport. IV saline locked for fluids in transit. Nose ring and pj pant returned to pt 1238--transferred out of PACU back to [facility] via ambulance service documented in this encounter [...] Info) Description 02/11/2024 13:15 EDT Office Visit [facility] Psychiatry - S [place] [address] [place], [place] [address] Zafar Sutton MD 1 [facility], Level [address] [place] [phone] Jax Brown MD [address] [place] [phone] documented as of this encounter Procedures Procedure [...] 07/07/2009 documented in this encounter Care Teams Sole Leveler Machine Relationship Specialty Start Date End Date Unknown, Provider, PCP - General 07/06/09 04/03/11 documented as of this encounter
--- OUTSIDE RECORDS SUMMARY | 2024-01-29 02:20 | XMS_ITS | Data Portability ---
Author Organization [place] - [facility], MAIN [place]ICE [place] [address] Assessment Encounter Date Assessment Date Assessment LastModified [...] recorded. Lab lipid panel, serum 2021 022 [facility] (Registration ), [address] [place] [address] , [place], [address], 05:00:44 homocystein e, serum or plasma 2021 022 [facility] (Registration ), [address] [place] [address] [place], [address], 3 05:00:44 lipoprotein (a), quant, serum 2021 [facility] (Registration ), [address] [place] [address] [place], [address], 3 05:00:44 HbA1c (hemoglobin A1c), blood 2021 [facility] (Registration ), [address] [place] [address] [place], [address], 3 05:00:44 vitamin D3, 25-hydroxy, serum 2021 [facility] (Registration ), [address] [place] [address] [place], [address], 3 05:00:44 vitamin B6 (pyridoxine ), plasma 2021 [facility] (Registration ), [address] [place] [address] [place], [address], 3 05:00:44 T3, free, serum or plasma 2021 [facility] (Registration ), [address] [place] [address] [place], [address], 3 05:00:44 TSH + free T4, serum 2021 [facility] (Registration ), [address] [place] [address] [place], [address], 3 05:00:44 CMP, serum or plasma 2021 [facility] (Registration ), [address] [place] [address] [place], [address], 3 05:00:44 vitamin B12 + folate, serum or blood 2021 022 [facility] (Registration ), [address] [place] [address] [place], [address], 3 05:00:44 iron + TIBC + ferritin, serum 2021 022 [facility] (Registration ), [address] [place] [address] [place], [address], 3 05:00:44 Referral None recorded. Procedures None recorded. Surgeries None recorded. Imaging None recorded. Medication Orders None recorded. Patient TargetsNo targets recorded. Patient Instructions Encounter Date Encounter Id Patient Instructions Last Modified By Organization Details Last Modified Time 11/22/2021 [id number] 1. neurotransmitter- testing with melatonin 300.00 2. pure-genomics b complex- 1 cap/day 3. bloodwork above sent to [facility]- 4. herbal anxiolytic will discuss after bloodwork- 5. pur gum as sub for regular gum- can be found at [employer] or sometimes [facility] 6. OX bile 1 cap with meals especially if fatty like hamburger or hotdog or eggs and dairy Not available 12/12/2021 16:31:39 12/27/2021 [id number] diarrhea: care instructions Not available 01/14/2022 18:35:38 1 try [facility] for finding healthier gum and continue to [...] Reason for Referral None Reported. Problems Name Problem SNOMED Code Status Onset Date Resolution Date Notes Provider Name and Address Organization Details Recorded Time Depressive disorder 87796386 Active 2021 Romi Eli ND [address] [place] [address], [place], [address], [facility] 2 13:37:53 Anxiety 06025266 Active 2021 Romi Eli ND [address] [place] [address], [address], [facility] 2 13:50:42 Hyperlipide live 40962827 Active 2021 Romi Eli [address], [address], [facility] 2 13:51:07 Vitamin D deficiency 02815573 Active 2021 Romi Eli [address], [address], [facility] 2 13:55:38 Fatigue 74917698 Active 2021 [place] [address] 1, [facility] 2 13:58:14 Numbness and tingling sensation of skin 968277650890 Active 2021 Romi Eli [place] [address], [facility] 2 14:14:46 Loose stool 663269993 Active [address], [address] [place] [address] 1, [facility] 2 17:50:44 Problem Notes None recorded. Medical Equipment None Reported. Allergies Allergen ID Allergen Name Allergen Category Reaction Reaction Severity Criticality Documentation Date Start Date Code Code System Note Provider Name and Address Organization Details Recorded Time 3822 amoxicill in medicatio n angioedem a severe high 11/22/2021 723 RxNorm passe d out, vomit ing, took to hospi gilberto- Romi Eli[address], [address], [facility] 2 13:31:00 Medications Name Sig Start Date [...] Address Organization Details Last Updated DateTime 2 32725.9 2 g 34.4 kg/m2 160.02 cm 74 /min 90 mm[Hg] 60 mm[Hg] Romi Eli ND [address] [place] [address], [address] [place] [address] 2 13:28:34 Social History None recorded. Functional Status None recorded. Mental Status None recorded. Family History Nothing Reported. Medical History No medical history recorded. Gynecological HistoryNo gynecological history recorded. Obstetrics History GPAL:G 0 P 0 0 0 0 Past Encounters Encounter ID Performer Location Encounter Start Date Encounter Closed Date Diagnosis/Indication Diagnosis SNOMED-CT Code [id number] Romi Eli ND MAIN OFFICE [address] [place] [address] 11/22/2021 13:20:10 12/12/2021 16:31:52 Anxiety 71655846 Hyperlipid emia screening 777890684 Family his tory of diabetes mellitus type 2 994568614 Vitamin D deficiency 347 95822 Fatigue 55575879 Numbness a nd tingling sensation of skin 704938100546 [id number] Romi Eli ND MAIN OFFICE [address] [place] [address] 12/27/2021 12:42:29 01/14/2022 18:35:53 Anxiety 42888826 Loose stool 354907058 Health Concerns Section Related Observation LastModified by Organization Detai ls LastModified Time None Recorded Concern Status LastModified by Organization Details LastModified Time None Recorded Advance Directives Directive None Recorded Payers Encounter Date Sequence Insurance Name Policy Number Policy Brown Covered Member ID Brown Member ID Guarantor Name 11/22/2021 1 [facility] (MEDICAID) Holly Mcnally [id number] Holly Mcnally 12/27/2021 1 [facility] (MEDICAID) Holly Mcnally [id number] Holly Mcnally Notes Date Note Type Note [...] was 27 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
--- OUTSIDE RECORDS SUMMARY | 2024-01-29 02:20 | XMS_ITS | Encounter Summary ---
Author Organization [facility] Address [address] [place] [address] Care Team Providers Care Animal Behaviourist Name Role Phone Randell Haji MD Primary Care Provider [phone] Encounter Details Date Type Department Care Team (Late st Contact Info) Description 06/16/2014 Results Only [facility] Laboratory Services - [facility] ([facility]) [address] [place], [place] [address] Rachelle Hough MD [address] [place] [address] 2 [place], [place] [id number] Social History Tobacco Use Types Packs/Day Years [...] 13:15 EDT Office Visit [facility] Psychiatry - [facility] 1 [place], [place] [address] Zafar Sutton MD 1 [facility], Level [address] [place] [address] Jax Brown MD [address] [place] [address] documented as of this encounter Procedures Procedure [...] ? YOUNG, YUNG ? Accession #: ? [id number] ? : ? 1980 (Age: 33) ??F [...] Mary 06/17/2014 09:59 AM End of Report [facility] 06/16/2014 8:15 EST 06/17/2014 8:15 EST Rachelle Hough MD PATHOLOGY ORDERABLES Performing Organization Address City/State/[facility] Co de Phone Number [facility] [address] [place] [address] documented in this encounter Visit Diagnoses Not on filedocumented in this encounter Care Teams Animal Behaviourist Relationship Specialty Start Date End Date Randell Haji MD [address] [place] [address] PCP - General 04/04/11 12/12/23 documented as of this encounter
--- OUTSIDE RECORDS SUMMARY | 2024-01-29 02:20 | XMS_ITS | Encounter Summary ---
Author Organization [facility] Address [address] [place] [address] Care Team Providers Care Pool Installer Name Role Phone Randell Haji MD Primary Care Provider [phone] Baron Hobson PA-C Primary Care Provider + Encounter Details Date Type Department Care Team (Late st Contact Info) Description 11/13/2023 Lab Requisition [facility] Pathology & Laboratory Medicine - [facility] [address] [place] [address] Outr Resulting Lab, Provider Social History Tobacco [...] Info) Description 02/11/2024 13:15 EDT Office Visit [facility] Psychiatry - [address] [place] [address] [place], [place] [address] Zafar Sutton MD [address] [place] [address], [address] [place] [address] Jax Brown MD [address] [place] [address] documented as of this encounter Procedures Procedure Name Priority Date/Time Associated Diagnosis Comments LYME AB Routine 11/12/2023 12:15 EDT documented in this encounter Results * LYME AB (11/12/2023 12:15 EDT) Lyme Ab Negative Negative 11/14/2023 11:54 EDT [facility] Blood VENOUS BLOOD / Unknown 11/12/2023 12:15 EDT 11/13/2023 16:54 EDT Provider Outr Resulting Lab IMMUNOLOGY A ND SEROLOGY ORDERABLES [facility] [address] [place] [address] documented in this encounter Visit Diagnoses Not on filedocumented in this encounter Care Teams Pool Installer Relationship Specialty Start Date End Date Randell Haji MD [address] [place] [address] PCP - General 04/04/11 12/12/23 Baron Hobson PA-C [address] [place] [address] PCP - General 12/13/23 documented as of this encounter
--- OUTSIDE RECORDS SUMMARY | 2024-01-29 02:20 | XMS_ITS | Encounter Summary ---
Author Organization [facility] [place] [address] Care Team Providers Care Pharmacovigilance Scientist Name Role Phone Baron Hobson Primary Care Provider [phone] Reason for Referral * Psychiatric (Routine) - Closed Specialty Diagnoses / Procedures Referred By Contac t Referred To Contact Psychiatry Diagnoses JODIE (generalized anxiety disorder) Post-traumatic stress disorder, unspecified Depression, unspecified depression type Baron Hobson PA [address] [place] [address] [facility] [address] [place] [id number] Referral ID Status Reason Start Date Expiration Date V isits Requested Visits Authorized [id number] Closed Consult, Test & Treat PCP Updated and/or Approved 02/01/2023 02/01/2024 6 6 Encounter Details Date Type Department Care Team (Latest Contact Info) Description 02/01/2023 Transcribe Orders eDH Incoming Referrals [phone] Baron Hobson PA [address] [place] [address] JODIE (generalized anxiety disorder); Post-traumatic [...] 02/26/2024 10:10 AM EDT Appointment MRI [place] [address] Dennise Jaimes, [facility] [place] [address] 02/26/2024 11:00 AM EDT Office [place] [address] Clinic, Dr Alfaro Team None 03/05/2024 9:40 AM EDT TH Visit (TeleHealth) [place] [address] Dennise Jaimes, [facility] [place] [address] Scheduled Referrals Name Type Priority Associated Diagnoses Orde r Schedule Referral to Psychiatry Outpatient Referral Routine JODIE (generalized anxiety disorder) Post-traumatic stress disorder, unspecified Depression, unspecified depression type Ordered: 02/01/2023 documented as of this encounter Visit Diagnoses Diagnosis JODIE (generalized anxiety disorder) Generalized anxiety disorder Post-traumatic stress disorder, unspecified Depression, unspecified depression type documented in this encounter Care Teams Pharmacovigilance Scientist Relationship Specialty Start Date End Date Baron Hobson PA [address] [place] [address] PCP - General Family Medicine 02/01/23 documented as of this encounter
--- OUTSIDE RECORDS SUMMARY | 2024-01-29 02:20 | XMS_ITS | Encounter Summary ---
Author Organization [facility] Address [address] [place] [address] Care Team Providers Care Passenger Vessel Chef Name Role Phone Randell Haji MD Primary Care Provider [phone] Encounter Details Date Type Department Care Team (Latest Contact Info) Description 03/25/2015 9:52 EDT - 03/25/2015 23:59 EDT Hospital Encounter [address] [address] Unknown, ProviderMD Discharge Disposition: Home or Self Care Social [...] Description 02/11/2024 13:15 EDT Office Visit [facility] Psychiatry [address] [address] Zafar Sutton MD 1 [facility], [address] [place] [address] Jax Brown MD [address] [place] [address] documented as of this encounter Visit Diagnoses Not on filedocumented in this encounter Care Teams Passenger Vessel Chef Relationship Specialty Start Date End Date Randell Haji MD [address] [place] [address] PCP - General 04/04/11 12/12/23 documented as of this encounter
--- OUTSIDE RECORDS SUMMARY | 2024-01-29 02:20 | XMS_ITS | Encounter Summary ---
Author Organization [facility] Address [address] [place] [address] Care Team Providers Care Taker Out Name Role Phone Randell Haji MD Primary Care Provider [phone] Baron Hobson PA-C Primary Care Provider + Encounter Details Date Type Department Care Team (Late st Contact Info) Description 06/19/2022 Lab Requisition [facility] Pathology & Laboratory Medicine - [facility] [address] [place] [address] Outr Resulting Lab, Provider Social History Tobacco [...] Description 02/11/2024 13:15 EDT Office Visit [facility] Psychiatry - [address] [place] [address] [place], [place] [address] Zafar Sutton MD [address] [place] [address], [address] [place] [address] Jax Brown MD [address] [place] [address] documented as of this encounter Procedures Procedure Name Priority Date/Time Associated Diagnosis Comments T3, TOTAL Routine 06/19/2022 11:30 EST documented in this encounter Results * T3, TOTAL (06/19/2022 11:30 EST) T3, Total 160 97 - 169 ng/dL 06/19/2022 22:19 EST [facility] Blood VENOUS BLOOD / Unknown 06/19/2022 11:30 EST 06/19/2022 21:26 EST Provider Outr Resulting Lab CHEMISTRY & BLOOD GAS ORDERABLES [facility] [address] [place] [address] documented in this encounter Visit Diagnoses Not on filedocumented in this encounter Care Teams Taker Out Relationship Specialty Start Date End Date Randell Haji MD [address] [place] [address] PCP - General 04/04/11 12/12/23 Baron Hobson PA-C [address] [place] [address] PCP - General 12/13/23 documented as of this encounter
--- OUTSIDE RECORDS SUMMARY | 2024-01-29 02:20 | XMS_ITS | Encounter Summary ---
Author Organization [facility] Address [address] [place] [address] Care Team Providers Care Power Lineman Technician Name Role Phone Randell Haji MD Primary Care Provider [phone] Baron Hobson PA-C Primary Care Provider + Encounter Details Date Type Department Care Team (Late st Contact Info) Description 08/14/2021 Lab Requisition [facility] Pathology & Laboratory Medicine - [facility] [address] [place], [place] [address] Outr Resulting Lab, Provider Social History Tobacco [...] 02/11/2024 13:15 EDT Office Visit [facility] Psychiatry - [address] [address] Zafar Sutton MD [address] [place] [address], [address] [place] [address] Jax Brown MD [address] [place] [address] documented as of this encounter Procedures Procedure Name Priority Date/Time Associated Diagnosis Comments HEPATITIS C AB W REFLEX TO HCV RNA BY PCR Routine 08/14/2021 9:35 EDT documented in this encounter Results * HEPATITIS C AB W REFLEX TO HCV RNA BY PCR (08/14/2021 9:35 EDT) Hep C Antibody Negative Negative 08/15/2021 9:58 EDT [facility] Blood VENOUS BLOOD / Unknown 08/14/2021 9:35 EDT 08/14/2021 17:03 EDT Provider Outr Resulting Lab CHEMISTRY & BLOOD GAS ORDERABLES [facility] [address] [place] [address] documented in this encounter Visit Diagnoses Not on filedocumented in this encounter Care Teams Power Lineman Technician Relationship Specialty Start Date End Date Randell Haji MD [address] [place] [address] PCP - General 04/04/11 12/12/23 Baron Hobson PA-C [address] [place] [address] PCP - General 12/13/23 documented as of this encounter
--- OUTSIDE RECORDS SUMMARY | 2024-01-29 02:20 | XMS_ITS | Encounter Summary ---
Author Organization [facility] Address [address] [place] [address] Care Team Providers Care Winery Cellar Hand Name Role Phone Unknown, Provider Primary Care Provider [phone] Encounter Details Date Type Department Care Team (Late st Contact Info) Description 03/15/2011 Results Only [facility] Laboratory Services - [facility] ([facility]) [address] [place] [address] Rachelle Hough MD [address] [place] [address] 2 [place], [place] [id number] Social History Tobacco Use Types Packs/Day Years [...] Info) Description 02/11/2024 13:15 EDT Office Visit [facility] Psychiatry - [address] [place] [address] [place], [place] [address] Zafar Sutton MD [address] [place] [address], [address] [place] [address] Jax Brown MD [address] [place] [address] documented as of this encounter Procedures Procedure [...] ? YOUNG, YUNG ? Accession #: ? [id number] : ? 1980 (Age: 30) ??F ?Collect [...] Hough MD PATHOLOGY ORDERABLES DESIREE MONTIEL [address] [place] [address] documented in this encounter Visit Diagnoses Not on filedocumented in this encounter Care Teams Winery Cellar Hand Relationship Specialty Start Date End Date Unknown, Provider, PCP - General 07/06/09 04/03/11 documented as of this encounter
--- OUTSIDE RECORDS SUMMARY | 2024-01-29 02:20 | XMS_ITS | Encounter Summary ---
Author Organization [facility] Address [address] [place] [address] Care Team Providers Care Paper Folding Machine Operator Name Role Phone Randell Haji MD Primary Care Provider [phone] Encounter Details Date Type Department Care Team (Late st Contact Info) Description 06/10/2014 Results Only [facility] Laboratory Services - [facility] ([facility]) [address] [place], [place] [address] Rachelle Hough MD [address] [place] [address] 2 [place], [place] [phone] Social History Tobacco Use Types Packs/Day Years [...] Office Visit [facility] Psychiatry - [facility] 1 [place], [place] [address] Zafar Sutton MD 1 [facility], [address] [place] [address] Jax Brown MD [address] [place] [address] documented as of this encounter Procedures Procedure [...] types 16,18,31,33,35, 39,45,51,52,56,58, 59,66, and 68 by senior software development manager mediated amplification. Comments Document reviewed and electronically signed by: ? System Interface ? Report date: 06/21/2014 By the signature above, the attending physician certifies that he/she has personally conducted a gross and/or microscopic examination of the described specimens and rendered or confirmed the above diagnosis. End of Report [facility] 06/10/2014 06/14/2014 Rachelle Hough MD PATHOLOGY ORDERABLES Performing Organization Address City/State/[facility] Co de Phone Number [facility] [address] [place] [address] documented in this encounter Visit Diagnoses Not on filedocumented in this encounter Care Teams Paper Folding Machine Operator Relationship Specialty Start Date End Date Randell Haji MD [address] [place] [address] PCP - General 04/04/11 12/12/23 documented as of this encounter
--- OUTSIDE RECORDS SUMMARY | 2024-01-29 02:20 | XMS_ITS | Encounter Summary ---
Author Organization [facility] [place] [address] Care Team Providers Care Prime Broker Name Role Phone Baron Hobson Primary Care Provider [phone] Encounter Details Date Type Department Care Team (Late st Contact Info) Description 09/30/2023 Telephone [place] [phone] Eugenio Tee, RN Social History Tobacco Use [...] 09/30/2023 9:33 AM EDT Copied from [facility] #[id number]. Topic: Specialty Dept CRMs - Generic Call >> Sep 30, 2023 8:52 AM Orquidea Nunez wrote: Specialist: Dennise Jaimes APRN Relationship (if other than patient-full name): Holly Mcnally Reason for Call: patient is scheduled for her annual follow up, on 01-02-24, is requesting medicationfor the MRI sedation and asking if a script can be sent to [facility], [address] [place] [address] , patient also has a question about WHEN to take the medication, pleasesend instructions through her [facility] portal, patient has someone driving her to this appointment. documented in this encounter Plan of Treatment Upcoming Encounters Date Type Department Care Team (Late st Contact Info) Description 02/26/2024 10:10 AM [place] [address] Dennise Jaimes, QUILTING MACHINE OPERATOR [facility] [place] [address] 02/26/2024 11:00 AM EDT Office [place] [address] Clinic, Dr Alfaro Team None 03/05/2024 9:40 AM EDT TH Visit (TeleHealth) [place] [address] Dennise Jaimes, QUILTING MACHINE OPERATOR [facility] [place] [address] documented as of this encounter Visit Diagnoses Not on filedocumented in this encounter Care Teams Prime Broker Relationship Specialty Start Date End Date Baron Hobson PA [address] [place] [address] PCP - General Family Medicine 02/01/23 documented as of this encounter
--- OUTSIDE RECORDS SUMMARY | 2024-01-29 02:20 | XMS_ITS | Encounter Summary ---
Author Organization [facility] [place] [address] Care Team Providers Care Tailer In Name Role Phone Baron Hobson Primary Care Provider [phone]- [phone] Encounter Details Date Type Department Care Team (Late st Contact Info) Description 01/10/2024 11:30 AM EDT Office [place] [phone] Alma Delia Martinez MD [facility] [place] [address] Thyroid nodule Social History Tobacco Use Types [...] Sign Reading Time Taken Comments Blood Pressure 108/57 01/10/2024 11:19 AM EDT Pulse 87 01/10/2024 11:19 AM EDT Temperature 36.5 ??C (97.7 ??F) 01/10/2024 1 1:19 AM EDT Respiratory Rate - - Oxygen Saturation 97% 01/10/2024 11: 19 AM EDT Inhaled Oxygen Concentration - - Weight 111.9 kg (246 lb 9.6 oz) 024 11:19 AM EDT Height 162.6 cm (5' 4) 01/10/2024 11:1 9 AM EDT Body Mass Index 42.33 01/10/2024 11:19 AM EDT documented in this encounter Progress Notes * Alma Delia Martinez MD - 01/10/2024 11:30 AM EDT Endocrinology Outpatient Follow up Name of patient: Holly Mcnally : 1980 Date of visit: 01/10/24 Reason for follow up: thyroid nodules HPI: Holly Mcnally is a 43 y.o. female with PMH anxiety/depression, fibromyalgia, and bipolar disorder, here in endocrinology clinic for follow up of thyroid nodules. She states that thyroid nodules first discovered ~5-7 years ago. She does not remember how they were first discovered, but does not recall compressive symptoms. She started following in our clinic [id number]. She has 3 TR4 nodules that we are following and has not required FNA. Today, she reports tremor associated with anxiety and weight gain. Denies dysphagia, dyspnea, goiter, anterior neck pain, palpitations. ROS: See HPI. PMH: Past Medical History: Diagnosis Date Anxiety Asthma Bronchitis Cerebral aneurysm Depression Headache Multiple thyroid nodules PTSD (post-traumatic stress disorder) Allergies: Allergies Allergen Reactions Amoxicillin Nausea And Vomiting Passed out Aspirin Other Reaction(s): Anxiety, sobbing Prozac [Fluoxetine] Anxiety Zoloft [Sertraline] Anxiety Worsen her mood symptoms Asa Buff (Mag Carb-Al Glyc) [Aspirin, Buffered] Anxiety Codeine Nausea Only Medrol [Methylprednisolone] Steroid pack Nsaids (Non-Steroidal Anti-Inflammatory Drug) Palpitations Current Medications: LORazepam (Ativan) 0.5 mg tablet diazePAM (Valium) 5 mg tablet cyclobenzaprine (Flexeril) 5 mg tablet EPINEPHrine 0.3 mg/0.3 mL Auto-Injector albuteroL 90 mcg/actuation HFA Aerosol Inhaler Xopenex HFA 45 mcg/actuation HFA Aerosol Inhaler multivit-min/ferrous fumarate (MULTI VITAMIN ORAL) UNABLE TO FIND b complex vitamins Capsule ascorbic acid, Vitamin C, (Vitamin C) 250 mg Tablet Physical Exam: Patient Vitals for the past 24 hrs: Temp Pulse BP SpO2 01/10/24 1119 36.5 ??C (97.7 ??F) 87 108/57 97 % General appearance: No apparent distress, resting comfortably in chair. HEENT: Moist mucous membranes, Neck supple, no palpable thyroid nodule Pulmonary: no respiratory distress Neuro: Grossly non focal. Recent Imaging and Labs: 01/04/23 TSH: 1.46 ENDOCRINOLOGY THYROID ULTRASOUND REPORT Patient:Holly Mcnally, [id number] Date of exam: 01/10/2024 Comparison: 01/2023 Real time images of the thyroid gland were obtained and saved using a [employer] US machine. All measurements are given as Longitudinal/Sagittal x AP x Transverse. Right Lobe: The right lobe measures 3.7 x 1.4 x 2.5 cm. Nodule 1: 0.9 x 0.7 x 1.1 cm. Solid, hypoechoic, smooth margins, wider than tall, none or large comet tail artifacts. TR4. Isthmus: The isthmus measures 3mm. Left Lobe: The left lobe measures 3.8 x 1.5 x 2.9 cm. Nodule 1 (upper lobe): 0.6 x 0.4 x 0.7 cm. TR1 benign nodule. Nodule 2 (mid pole): 1.1 x 0.9 x 1 cm. Solid, hypoechoic, smooth, wider than tall, no calcifications. TR4. Nodule 3 (lower pole): 0.8 x 0.8 x 0.9 cm. Solid, hypoechoic, smooth, wider than tall, no calcifications. TR4. Lateral neck: I examined the lateral neck regions and saw no morphologically abnormal lymph nodes Impression: There are 3 TR4 nodules with overall stable size compared to previous ultrasound. Do not meet criteria for FNA. Recommend repeat thyroid US in 1 year. Assessment and Plan: Holly Mcnally is a 43 y.o. female with PMH anxiety/depression, fibromyalgia, and bipolar disorder,here in endocrinology clinic for follow up of thyroid nodules. Thyroid nodules There are 3 TR4 nodules that are overall stable compared to the previous US and do not meet criteria for FNA. No suspicious cervical LN. For a TR4 nodule, US should be done at 1, 2, 3, and 5 years. Imaging can stop at 5 years if there is no change in size, as stability reflects benign behavior. Recommendation: -Repeat thyroid US in 1 year (year 3) -TSH cascade Discussed with Dr. Comi. Alma Delia Martinez PGY-5 [facility] Endocrine Fellow * Alma Delia Martinez MD - 01/10/2024 11:30 AM EDT ENDOCRINOLOGY THYROID ULTRASOUND REPORT Patient:Holly Mcnally, [id number] Date of exam: 01/10/2024 Comparison: 01/2023 Real time images of the thyroid gland were obtained and saved using a [employer] US machine. All measurements are given as Longitudinal/Sagittal x AP x Transverse. Right Lobe: The right lobe measures 3.7 x 1.4 x 2.5 cm. Nodule 1: 0.9 x 0.7 x 1.1 cm. Solid, hypoechoic, smooth margins, wider than tall, none or large comet tail artifacts. TR4. Isthmus: The isthmus measures 3mm. Left Lobe: The left lobe measures 3.8 x 1.5 x 2.9 cm. Nodule 1 (upper lobe): 0.6 x 0.4 x 0.7 cm. TR1 benign nodule. Nodule 2 (mid pole): 1.1 x 0.9 x 1 cm. Solid, hypoechoic, smooth, wider than tall, no calcifications. TR4. Nodule 3 (lower pole): 0.8 x 0.8 x 0.9 cm. Solid, hypoechoic, smooth, wider than tall, no calcifications. TR4. Lateral neck: I examined the lateral neck regions and saw no morphologically abnormal lymph nodes Impression: There are 3 TR4 nodules with overall stable size compared to previous ultrasound. Do not meet criteria for FNA. Recommend repeat thyroid US in [address] De La Cruz was present during the ultrasound procedure. Alma Delia Martinez PGY-5. [facility] Endocrinology. * Poncho De La Cruz MD - 01/10/2024 11:30 AM EDT I saw this patient with Dr Martinez . I reviewed the calixto portions of the history and physical exam, and reviewed pertinent lab data. I was present for and confirmed these ultrasound findings. I answered all patient questions. I was involved in all medical decision making and agree with this plan. documented in this encounter Plan of Treatment Upcoming Encounters Date Type Department Care Team (Late st Contact Info) Description 02/26/2024 10:10 AM EDT Appointment MRI at [place] [phone] Dennise Jaimes APRN [facility] [place] [address] 02/26/2024 11:00 AM EDT Office [place] [address] Clinic, Dr Alfaro Team None 03/05/2024 9:40 AM EDT TH Visit (TeleHealth) [place] [address] Dennise Jaimes, FULLER BRUSH MAN [facility] [place] [address] documented as of this encounter Results * TSH [place] (01/10/2024 12:20 PM EDT) Thyroid Stimulating Hormone 1.80 0.27 - 4.20 mcIU/mL 01/10/2024 1:18 PM EDT [facility] Comment: Reference Interval (mcIU/mL): ?? Females: ? First Trimester: 0.23-3.88 ? Second Trimester: 0.22-3.90 ? Third Trimester: 0.44-4.66 Blood VENOUS BLOOD SPECIMEN / Unknown Venipuncture / Unknown 01/10/2024 12:20 PM EDT 01/10/2024 12:20 PM EDT Poncho De La Cruz MD CHEMISTRY ORDERABLES [facility] [place] [address] documented in this encounter Visit Diagnoses Diagnosis Thyroid nodule Nontoxic uninodular goiter documented in this encounter Care Teams Tailer In Relationship Specialty Start Date End Date Baron Hobson PA [address] [place] [address] PCP - General Family Medicine 02/01/23 documented as of this encounter
--- OUTSIDE RECORDS SUMMARY | 2024-01-29 02:20 | XMS_ITS | Encounter Summary ---
Author Organization [facility] [place] [address] Care Team Providers Care Manager Metal Name Role Phone Baron Hobson Primary Care Provider [phone]- [phone] Encounter Details Date Type Department Care Team (Late st Contact Info) Description 07/02/2023 Telephone [place] [address] Darwin Noel MD [facility] [place] [address] Social History Tobacco Use Types Packs/Day Years [...] swallowing. Patient stated she was going [facility] ED. documented in this encounter Plan of Treatment Upcoming Encounters Date Type Department Care Team (Late st Contact Info) Description 02/26/2024 10:10 [place] [address] Dennise Jaimes, NAMRATA [facility] [address] 02/26/2024 11:00 AM EDT Office [place] [phone] Clinic, Dr Alfaro Team None 03/05/2024 9:40 AM EDT TH Visit (TeleHealth) [place] [phone] Dennise Jaimes [facility] [place] [place] [address] documented as of this encounter Visit Diagnoses Not on filedocumented in this encounter Care Teams Manager Metal Relationship Specialty Start Date End Date Baron Hobson PA [address] [place] [address] PCP - General Family Medicine 02/01/23 documented as of this encounter
--- OUTSIDE RECORDS SUMMARY | 2024-01-29 02:20 | XMS_ITS | Encounter Summary ---
Author Organization [facility] [place] [address] Care Team Providers Care Ironing Worker Name Role Phone Unknown Primary Care [...] 02/26/2024 10:10 AM EDT [place] [address] Dennise Jaimes APRN [facility] [place] [address] 02/26/2024 11:00 AM EDT Office [place] [address] Clinic, Dr Alfaro Team None 03/05/2024 9:40 AM EDT TH Visit (TeleHealth) [place] [address] Dennise Jaimes APRN [facility] [place] [address] documented as of this encounter Visit Diagnoses Not on filedocumented in this encounter Care Teams Ironing Worker Relationship Specialty Start Date End Date Unknown None PCP - General 02/24/22 01/31/23 documented as of this encounter
--- OUTSIDE RECORDS SUMMARY | 2024-01-29 02:20 | XMS_ITS | Encounter Summary ---
Author Organization [facility] Address [address] [place] [address] Care Team Providers Care Engine Repairer Production Name Role Phone Randell Haji MD Primary Care Provider [phone] Baron Hobson PA-C Primary Care Provider + Encounter Details Date Type Department Care Team (Late st Contact Info) Description 03/30/2021 Lab Requisition [facility] Pathology & Laboratory Medicine - [facility] [address] [place] [address] Outr Resulting Lab, Provider Social History Tobacco [...] [facility] Psychiatry - [address] [place], [place] [address] Zafar Sutton MD [address] [place] [address], [address] [place] [address] Jax Brown MD [address] [place] [address] documented as of this encounter Procedures Procedure Name Priority Date/Time Associated Diagnosis Comments ZZCOVID-19 TEST [facility] PCR Today 03/29/2021 14:30 EDT COVID-19 TESTING Routine 03/29/2021 14:3 0 EDT documented in this encounter Results * COVID-19 TEST [facility] PCR (03/29/2021 14:30 EDT) Swab ENTIRE NASOPHARYNX / Unknown 03/29/2021 14:30 EDT 03/30/2021 17:18 EDT Provider Outr Resulting Lab MICROBIOLOGY - GENERAL ORDERABLES [facility] [address] [place] [address] * COVID-19 TESTING (03/29/2021 14:30 EDT) COVID-19 rt-PCR Result Negative Negative 03/31/2021 10:18 EDT [facility] Comment: This test has not [...] performed using the enoch SARS-CoV-2 assay ([employer] on the Enoch 6800 System Performing Lab E[address]ch [address] [facility] 03/31/2021 10:18 EDT [facility] Swab 03/29/2021 14:3 0 EDT 03/30/2021 17:18 EDT Provider Outr Resulting Lab MICROBIOLOGY - GENERAL ORDERABLES [facility] [address] [place] [address] documented in this encounter Visit Diagnoses Not on filedocumented in this encounter Care Teams Engine Repairer Production Relationship Specialty Start Date End Date Randell Haji MD [address] [place] [address] PCP - General 04/04/11 12/12/23 Baron Hobson PA-C [address] [place] [address] PCP - General 12/13/23 documented as of this encounter
--- OUTSIDE RECORDS SUMMARY | 2024-01-29 02:20 | XMS_ITS | Encounter Summary ---
Author Organization [facility] Address [address] [place] [address] Care Team Providers Care Back Up Machine Operator Name Role Phone Randell Haji MD Primary Care Provider [phone] Baron Hobson PA-C Primary Care Provider + Encounter Details Date Type Department Care Team (Latest Contact Info) Description 10/12/[address] [facility] Pathology & Laboratory Medicine - [facility] [address] [place] [address] Baron Hobson PA-C [address] [place] [phone] Encounter for gynecological examination (general) (routine) without [...] Description 02/11/2024 13:[address] [facility] Psychiatry - [address] [id number] Zafar Sutton MD [address] [place] [address], [address] [place] [address] Jax Brown MD [address] [place] [address] documented as of this encounter Procedures Procedure [...] types, PCR Negative Negative 10/24/2022 16:42 EDT [facility] Comment:No E6 or E7 mRNA is detected from HPV types 16,18,31,33,35,39,45,51,52,56,58,59,66, and 68 by dust sampler mediated amplification. Papanicolaou smear specimen (specimen) CERVIX UTERI STRUCTURE / Unknown 10/10/2022 14:30 EDT 10/23/2022 16:36 EDT Baron Hobson PA-C MICROBIOLOGY - G ENERAL ORDERABLES [facility] [address] [place] [address] * PAP TEST (10/10/2022 14:30 EDT) Specimens A. Cervix and/or Endocervix , ThinPrep Imaging System with Manual Evaluation 10/24/2022 16:42 EDT [facility] Specimen Adequacy Satisfactory for Evaluation - transformation zone component present 10/24/2022 16:42 EDT [facility] General Categorization Negative for intraepithelial lesion or malignancy 10/24/2022 16:42 EDT [facility] Descriptive Diagnosis Reactive cellular changes associated with inflammation present (includes repair). 10/24/2022 16:42 EDT [facility] Attestation By the signature below, the attending physician certifies that they have personally conducted a gross and/or microscopic examination of the described specimens and rendered or confirmed the above diagnosis. 10/24/2022 16:42 EDT [facility] at 1641 Clinical History See below 10/25/19 16:42 EDT [facility] HPV The result for the Human Papillomavirus (HPV) Detection-High Risk Types is Negative. No E6 or E7 mRNA is detected from HPV types 16,18,31,33,35,39 ,45,51,52,56,58,5 9,66, and 68 by dust sampler mediated amplification.Santa ting was performed on specimen [id number] and was resulted on 10/24/2022 1641 EDT by SARA, LAB INSTRUMENT RESULTS IN 10/24/2022 16:42 EDT [facility] Performing Lab [facility] 10/24/2022 16:42 EDT [facility] Scanned Images 10/24/2022 16:42 EDT [facility] Papanicolaou smear specimen (specimen) CERVIX UTERI STRUCTURE / Unknown 10/10/2022 14:30 EDT 10/12/2022 12:37 EDT Baron Hobson PA-C PATHOLOGY ORDERA JACQUELINE [facility] [address] [place] [address] documented in this encounter Visit Diagnoses Diagnosis Encounter for gynecological examination (general) (routine) without abnormal findings documented in this encounter Care Teams Back Up Machine Operator Relationship Specialty Start Date End Date Randell Haji MD [address] [place] [address] PCP - General 04/04/11 12/12/23 Baron Hobson PA-C [address] [place] [address] PCP - General 12/13/23 documented as of this encounter
--- OUTSIDE RECORDS SUMMARY | 2024-01-29 02:20 | XMS_ITS | Clinical Summary ---
Author Organization [facility] Address [address] [place] [address] Care Team Providers Care Translation Director Name Role Phone Baron Hobson PA-C Primary Care Provider + Allergies No known active allergies Medications No known medications Encounters Date Type Department Care Team Description 11/13/2023 Lab Requisition [facility] Pathology & Laboratory Medicine - [facility] [address] [place] [address] Outr Resulting Lab, Provider from Last 3 [...] Info) Description 02/11/2024 13:15 EDT Office Visit [facility] Psychiatry - [address] [phone] Zafar Sutton MD [address] [place] [address], [address] [place] [phone] Jax Brown MD [address] [place] [phone] Health Maintenance Due Date Last Done Comments Hepatitis B Vaccine (1 of 3 - 19+ 3-dose series) 09/07 COVID-19 Vaccine (2022- season) 2023 Hepatitis C Screen Completed 08/14/2021 Procedures Procedure Name Priority Date/Time Associated Diagnosis Comments LYME AB Routine 11/12/2023 12:15 EDT HEPATITIS C AB W REFLEX TO HCV RNA BY PCR Routine 08/14/2021 9:35 EDT from Last 3 Months or Most Recently Relevant to Health Maintenance Results * LYME AB (11/12/2023 12:15 EDT) Lyme Ab Negative Negative 11/14/2023 11:54 EDT [facility] Blood VENOUS BLOOD / Unknown 11/12/2023 12:15 EDT 11/13/2023 16:54 EDT Provider Outr Resulting Lab IMMUNOLOGY A ND SEROLOGY ORDERABLES Performing Organization Address City/[facility]/ZIP Co de Phone Number [facility] [address] [place] [address] * HEPATITIS C AB W REFLEX TO HCV RNA BY PCR (08/14/2021 9:35 EDT) Hep C Antibody Negative Negative 08/15/2021 9:58 EDT [facility] Blood VENOUS BLOOD / Unknown 08/14/2021 9:35 EDT 08/14/2021 17:03 EDT Provider Outr Resulting Lab CHEMISTRY & BLOOD GAS ORDERABLES [facility] [address] [place] [address] from Last 3 Months or Most Recently Relevant to Health Maintenance Care Teams Translation Director Relationship Specialty Start Date End Date Baron Hobson PA-C [address] [place] [phone] PCP - General 12/13/23
--- OUTSIDE RECORDS SUMMARY | 2024-01-29 02:20 | XMS_ITS | Encounter Summary ---
[place] [address] Care Team Providers Care Family Resource Specialist Name Role Phone Baron Hobson Primary Care Provider [phone] Reason for Referral * Consultation (Routine) - Authorized Specialty Diagnoses / Procedures Referred By Jesika t Referred To Contact Orthopaedics Diagnoses Left knee pain, unspecified chronicity Baron Hobson PA [address] [place] [address] [facility] Orthopaedics [address] [place] [phone] Referral ID Status Reason Start Date Expiration Date Visits Requested Visits Authorized [id number] Authorized Second Opinion PCP Updated and/or Approved 02/01/2023 02/01/2024 12 12 Encounter Details Date Type Department Care Team (Latest Contact Info) Description 02/01/2023 Transcribe Orders eDH Incoming Referrals [phone] Baron Hobson PA [address] [place], [place] [address] Left knee pain, unspecified chronicity Social History [...] 02/26/2024 10:10 AM [place] [phone] Dennise Jaimes APRN [facility] [place] [address] 02/26/2024 11:00 AM EDT Office [place] [address] Clinic, Dr Alfaro Team None 03/05/2024 9:40 AM EDT TH Visit (TeleHealth) [place] [address] Dennise Jaimes, BATTERY TECHNICIAN [facility] [place] [address] Scheduled Referrals Name Type Priority Associated Diagnoses Orde r Schedule Referral to Orthopaedics Outpatient Referral Routine Left knee pain, unspecified chronicity Ordered: 02/01/2023 documented as of this encounter Visit Diagnoses Diagnosis Left knee pain, unspecified chronicity documented in this encounter Care Teams Family Resource Specialist Relationship Specialty Start Date End Date Baron Hobson PA [address] [place] [address] PCP - General Family Medicine 02/01/23 documented as of this encounter
--- OUTSIDE RECORDS SUMMARY | 2024-01-29 02:20 | XMS_ITS | Encounter Summary ---
Author Organization [facility] [place] [address] Care Team Providers Care Abrasive Mixer Name Role Phone Baron Hobson Primary Care Provider [phone] Reason for Referral * Physical Therapy (Routine) - Authorized Specialty Diagnoses / Procedures Referred By Contac t Referred To Contact Physical Therapy Diagnoses Patellofemoral arthritis of right knee Dmitriy Earl MD [facility] [place] [address] Referral ID Status Reason Start Date Expiration Date Visits Requested Visits Authorized [id number] Authorized Evaluate and Treat 08/14/2023 02/10/2024 12 12 Reason for Visit * Reason Comments Establish Care NXR LEFT KNEE PAIN NO INJURY 2ND OPINON * Consultation (Routine) - Authorized Specialty Diagnoses / Procedures Referred By Jesika maddox Referred To Contact Orthopaedics Diagnoses Left knee pain, unspecified chronicity Baron Hobson PA [address] [place] [address] [facility] Orthopaedics [address] [place] [phone] Referral ID Status Reason Start Date Expiration Date Visits Requested Visits Authorized [id number] Authorized Second Opinion PCP Updated and/or Approved 02/01/2023 02/01/2024 12 12 Encounter Details Date Type Department Care Team (Latest Contact Info) Description 08/14/2023 10:40 AM EDT Office [place] [address] Clinic, Dr Youngblood Team None Patellofemoral arthritis [...] was referred from HIEN Sung [address] [place] [id number] HISTORY OF PRESENT ILLNESS: Holly Mcnally who is a 42 y.o. female who has a history of approximately 3 years of right knee pain which started insidiously. She denies any inciting event. She states she noted more knee pain whenshe would walk about a half a mile to the [facility]. It is worse with excessive knee [...] less than $25,000 # People Supported 4 Kuwaiti, , No, not Kuwaiti// Race White Health Literacy Extremely Currently working [...] IR Arteriogram Cerebral 10/07/2018 Eugenio Hernandez MD [facility] INTERVENTION[facility] RAD FAMILY HISTORY: Family history [...] 02/26/2024 10:10 [place] [phone] Dennise Jaimes APRN [facility] [place] [address] 02/26/2024 11:00 AM EDT Office [place] [phone] Clinic, Dr Youngblood Team None 03/05/2024 9:40 AM EDT TH Visit (TeleHealth) [place] [address] Dennise aJimes APRN [facility] [place] [address] Scheduled Referrals Name Type Priority Associated Diagnoses Orde r Schedule Referral to Physical Therapy Outpatient Referral Routine Patellofemoral arthritis of right knee Ordered: 08/14/2023 documented as of this encounter Visit Diagnoses Diagnosis Patellofemoral arthritis of right knee documented in this encounter Care Teams Abrasive Mixer Relationship Specialty Start Date End Date Baron Hobson [address] [place] [address] PCP - General Family Medicine 02/01/23 documented as of this encounter
--- OUTSIDE RECORDS SUMMARY | 2024-01-29 02:20 | XMS_ITS | Clinical Summary ---
Author Organization [facility] Address [facility] [place] [address] Care Team Providers Care Outreach Manager Name Role Phone Baron Hobson Primary Care Provider [phone] Allergies Active Allergy Reactions Criticality Noted Date Comments Amoxicillin Nausea And Vomiting High 09/16/2018 Passed out Aspirin, Buffered 10/07/2015 Anxiety Aspirin High 03/26/2020 Other Reaction(s): Anxiety, sobbing Codeine Nausea Only 10/07/2015 Methylprednisolone 01/10/2024 Steroid pack Nsaids (Non-Steroidal Anti-Inflammatory Drug) Palpitations 10/07/2015 Fluoxetine [...] dose of 10mg. 2 tablet 10/03/2023 Active LORazepam (Ativan) 0.5 mg tablet Take 0.5 mg by mouth as needed for Anxiety. 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 Please feel free to call in [...] Encounters Date Type Department Care Team Description 01/10/2024 1:25 PM EDT Laboratory Appointment Lab [address] [place] [address] Thyroid nodule 01/10/2024 11:30 AM EDT Office [place] [phone] Alma Delia Martinez MD Thyroid nodule 01/10/2024 Travel 11/08/2023 [place] [address] Bindu Tamayo, RN 11/08/2023 [place] [address] Bindu Tamayo, RN from Last 3 Months Family History [...] 01/10/2024 1 1:19 AM EDT Respiratory Rate 18 12/21/2022 12:5 3 PM EDT Oxygen Saturation 97% 01/10/2024 11: 19 AM EDT Inhaled Oxygen Concentration - - Weight 111.9 kg (246 lb 9.6 oz) 024 11:19 AM EDT Height 162.6 cm (5' 4) 01/10/2024 11:1 9 AM EDT Body Mass Index 42.33 01/10/2024 11:19 AM EDT Plan of Treatment Upcoming Encounters Date Type Department Care Team (Late st Contact Info) Description 02/26/2024 10:10 AM [place] [address] Dennise Jaimes, [facility] [place] [address] 02/26/2024 11:00 AM EDT Office [place] [address] Clinic, Dr Alfaro Team None 03/05/2024 9:40 AM EDT TH Visit (TeleHealth) [place] [address] Dennise Jaimes, [facility] [place] [address] Health Maintenance Due Date Last Done Comments [...] Routine 01/10/2024 12:20 PM EDT Thyroid nodule BASIC METABOLIC PANEL STAT 08/12/2018 3:45 PM EDT MAMMO 2D DIGITAL DIAG KENDELL WITH CAD BILATERAL Routine 10/07/2015 12:51 PM EDT Breast pain from Last 3 Months or Most Recently Relevant to Health Maintenance Results * TSH [place] (01/10/2024 12:20 PM EDT) Thyroid Stimulating Hormone [...] Cruz MD CHEMISTRY ORDERABLES [facility] [place] [address] * (ABNORMAL) Basic Metabolic Panel (non-fasting) (08/12/2018 3:45 PM EDT) Glucose 85 65 - 199 mg/dL [facility] Comment:Diabetes: >=200 mg/d L plus symptoms Blood Urea Nitrogen 7(L) 8 - 18 mg/dL [facility] Creatinine 0.75 0.70 - 1.20 mg/dL [facility] Sodium 143 135 - 145 mmol/L [facility] Potassium 3.9 3.5 - 5.0 mmol/L [facility] Comment: Please note: ??Patients with WBC >100,000 may have falsely elevated Potassium levels. ??For accurate Potassium quantification in these patients send serum separator tube (gold top) for subsequent determinations. ??Contact the Clinical Chemistry Laboratory if there are any questions. Chloride 103 98 - 107 mmol/L [facility] Carbon Dioxide 26 22 - 31 mmol/L [facility] Anion Gap 14 5 - 15 mmol/L [facility] Calcium 10.0 8.5 - 10.5 mg/dL [facility] Est Glomerular Filtration Rate 103 >=60 mL/min/1. 73 m?? [facility] Comment: The eGFR was calculated using the CKD-EPI equation. As with all creatinine based estimates of kidney function, eGFR values calculated with the CKD-EPI equation are not accurate in patients with acute kidney failure, extremes of body mass or the acutely ill. [email or web address] [email or web address] eGFR 120 >=60 mL/min/1. 73 m?? [facility] Comment: The eGFR was calculated using the CKD-EPI equation. As with all creatinine based estimates of kidney function, eGFR values calculated with the CKD-EPI equation are not accurate in patients with acute kidney failure, extremes of body mass or the acutely ill. [email or web address] Blood specimen (specimen) 08/12/2018 3:45 PM EDT 08/12/2018 4:15 PM EDT Narrative Resulting Agency Comment Spec In Lab Nathaniel Venegas MD CHEMISTRY ORDERABLES Performing Organization Address City/State/[facility] Co de Phone Number [facility] [place] [address] * Mammo Diag [place] Bilateral (10/07/2015 12:51 [...] capacity to make decision: Yes Care Teams Outreach Manager Relationship Specialty Start Date End Date Baron Hobson PA [address] [place] [address] PCP - General Family Medicine 02/01/23
--- OUTSIDE RECORDS SUMMARY | 2024-01-29 02:20 | XMS_ITS | Encounter Summary ---
Author Organization [facility] Address [address] [place] [address] Care Team Providers Care Cream Hauler Name Role Phone Randell Haji MD Primary Care Provider [phone] Baron Hobson PA-C Primary Care Provider + Encounter Details Date Type Department Care Team (Late st Contact Info) Description 07/26/2023 Lab Requisition [facility] Pathology & Laboratory Medicine - [facility] [address] [place] [address] Outr Resulting Lab, Provider Social History Tobacco [...] Info) Description 02/11/2024 13:15 EDT Office Visit [facility] Psychiatry - [address] [place], [place] [phone] Zafar Sutton MD [address] [place] [address], [address] [place] [address] Jax Brown MD [address] [place] [address] documented as of this encounter Procedures Procedure Name Priority Date/Time Associated Diagnosis Comments DEXAMETHASONE SUPPRESSION TEST Routine 07/26/2023 8:05 EST documented in this encounter Results * DEXAMETHASONE SUPPRESSION TEST (07/26/2023 8:05 EST) Dexamethasone Supp <1.0 See Note ug/dL 07/26/2023 18:13 EST [facility] Comment: Reference Range: >= 1.8 ug/dL = non-suppression < 1.8 ug/dL = suppression (normal) Blood VENOUS BLOOD / Unknown 07/26/2023 8:05 EST 07/26/2023 17:18 EST Narrative [facility] - 07/26/2023 18:13 EST The results of this assay can be falsely elevated due to the consumption of Biotin. Provider Outr Resulting Lab CHEMISTRY & BLOOD GAS ORDERABLES [facility] [address] [place] [address] documented in this encounter Visit Diagnoses Not on filedocumented in this encounter Care Teams Cream Hauler Relationship Specialty Start Date End Date Randell Haji MD [address] [place] [address] PCP - General 04/04/11 12/12/23 Baron Hobson PA-C [address] [place] [address] PCP - General 12/13/23 documented as of this encounter
--- OUTSIDE RECORDS SUMMARY | 2024-01-29 02:20 | XMS_ITS | Encounter Summary ---
Author Organization [facility] [place] [address] Care Team Providers Care Chief Legal Officer Name Role Phone Baron Hobson Primary Care Provider [phone] Encounter Details Date Type Department Care Team (Late st Contact Info) Description 07/02/2023 Telephone [place] [address] Darwin Noel MD [facility] [place] [address] Social History Tobacco Use Types Packs/Day Years [...] 02/26/2024 10:10 AM ED[place] [address]1000 Dennise Jaimes, [facility] [place] [address] 02/26/2024 11:00 AM EDT Office [place] [address] Clinic, Dr Alfaro Team None 03/05/2024 9:40 AM EDT TH Visit (TeleHealth) [place] [address] Dennise Jaimes, [facility] [place] [address] documented as of this encounter Visit Diagnoses Not on filedocumented in this encounter Care Teams Chief Legal Officer Relationship Specialty Start Date End Date Baron Hobson PA [address] [place] [address] PCP - General Family Medicine 02/01/23 documented as of this encounter
--- OUTSIDE RECORDS SUMMARY | 2024-01-29 02:20 | XMS_ITS | Encounter Summary ---
Author Organization [facility] Address [facility] [place] [address] Care Team Providers Care Tv News Director Name Role Phone Unknown Primary Care Provider Unavailabl e Encounter Details Date Type Department Care Team (Late st Contact Info) Description 01/04/2023 10:30 AM EDT Office Visit [place] [phone] Darwin Noel MD [facility] DR [place]OCRIN[place] [address] Thyroid nodule (Primary Dx) Social History Tobacco [...] We will try to obtain these from [facility]. Bedside ultrasound today reveals bilateral mixed solid/cystic [...] tired. Gained 30 lbs in a year. [place] something stuck in her throat. Denied dysphagia. [...] your patient. D/W Dr. Adali Noel MD [facility] [place] PGY-5, Fellow Pager #[phone] * Darwin Noel MD - 01/04/2023 10:30 AM EDT ENDOCRINOLOGY THYROID ULTRASOUND REPORT Patient:Holly Mcnally, [id number] Date of exam: 01/04/2023 Indication: thyroid nodules [...] US in 1 year. Darwin Noel MD [facility] [place]ocrinology PGY-4, Fellow Pager #[phone] * EchtFrancisca MD - 01/04/2023 10:30 AM EDT Patient seen with Dr. Noel. I agree with the assessment and plan as documented and was involved in all medical decision making. Based on imaging, do not need to FNA her thyroid nodules but recommend repeat ultrasound in 1 year. Francisca Bro MD Voice Coachdesign inserter Endocrinology Section [facility] documented in this encounter Plan of Treatment Upcoming Encounters Date Type Department Care Team (Late st Contact Info) Description 02/26/2024 10:10 AM EDT [place] [address] Dennise Jaimes, [facility] [place] [address] 02/26/2024 11:00 AM EDT Office Visit Orthopaedics at [place] [phone] Clinic, Dr Alfaro Team None 03/05/2024 9:40 AM EDT TH Visit (TeleHealth) Neurosurgery at [place] [phone] Dennise Jaimes, [facility] [place] [address] documented as of this encounter Procedures Procedure Name Priority Date/Time Associated Diagnosis Comments TSH [place] Routine 01/04/2023 11:24 AM EDT Thyroid nodule documented in this encounter Results * TSH [place] (01/04/2023 11:24 AM EDT) Thyroid Stimulating Hormone 1.46 0.27 - 4.20 mcIU/mL [facility] Comment: Reference Interval (mcIU/mL): Females: ??First Trimester: 0.23-3.88 ??Second Trimester: 0.22-3.90 ??Third Trimester: 0.44-4.66 Blood 01/04/2023 11:2 4 AM EDT 01/04/2023 11:49 AM EDT Narrative Resulting Agency Comment Spec In Lab Francisca Bro MD CHEMISTRY ORDERABLES [facility] [place] [address] documented in this encounter Visit Diagnoses Diagnosis Thyroid nodule- Primary Nontoxic uninodular goiter documented in this encounter Care Teams Tv News Director Relationship Specialty Start Date End Date Unknown None PCP - General 02/24/22 01/31/23 documented as of this encounter
--- OUTSIDE RECORDS SUMMARY | 2024-01-29 02:20 | XMS_ITS | Referral Summary ---
Author Organization [facility] Address [address] [place] [address] Care Team Providers Care Transit Authority Police Officer Name Role Phone Baron Hobson PA-C Primary Care Provider + Encounters Date Type Department Care Team Description 11/13/2023 Lab Requisition [facility] Pathology & Laboratory Medicine - [facility] [address] [place] [address] Outr Resulting Lab, Provider from Last 3 [...] Info) Description 02/11/2024 13:15 EDT Office Visit [facility] Psychiatry - [address] [phone] Zafar Sutton MD [address] [place] [address], [address] [place] [address] Jax Brown MD [address] [place] [address] Procedures Procedure Name Priority Date/Time Associated Diagnosis Comments LYME AB Routine 11/12/2023 12:15 EDT HEPATITIS C AB W REFLEX TO HCV RNA BY PCR Routine 08/14/2021 9:35 EDT from Last 3 Months or Most Recently Relevant to Health Maintenance Results * LYME AB (11/12/2023 12:15 EDT) Lyme Ab Negative Negative 11/14/2023 11:54 EDT [facility] Blood VENOUS BLOOD / Unknown 11/12/2023 12:15 EDT 11/13/2023 16:54 EDT Provider Outr Resulting Lab IMMUNOLOGY A ND SEROLOGY ORDERABLES Performing Organization Address [facility]/ZIP Co de Phone Number [facility] [address] [place] [address] * HEPATITIS C AB W REFLEX TO HCV RNA BY PCR (08/14/2021 9:35 EDT) Hep C Antibody Negative Negative 08/15/2021 9:58 EDT [facility] Blood VENOUS BLOOD / Unknown 08/14/2021 9:35 EDT 08/14/2021 17:03 EDT Provider Outr Resulting Lab CHEMISTRY & BLOOD GAS ORDERABLES Performing Organization Address [facility]/ZIP Co de Phone Number [facility] [address] [place] [address] from Last 3 Months or Most Recently Relevant to Health Maintenance Care Teams Transit Authority Police Officer Relationship Specialty Start Date End Date Baron Hobson PA-C [address] [place] [address] PCP - General 12/13/23
--- OUTSIDE RECORDS SUMMARY | 2024-01-29 02:20 | XMS_ITS | Encounter Summary ---
Author Organization [facility] Address [address] [place] [address] Care Team Providers Care Freight Sorter Name Role Phone Randell Haji MD Primary Care Provider [phone] Baron Hobson PA-C Primary Care Provider + Encounter Details Date Type Department Care Team (Late st Contact Info) Description 10/26/2021 Lab Requisition [facility] Pathology & Laboratory Medicine - [facility] [address] [place], [place] [address] Outr Resulting Lab, Provider Social History Tobacco [...] Description 02/11/2024 13:15 EDT Office Visit [facility] Psychiatry - [address] [place] [address] [place], [place] [address] Zafar Sutton MD [address] [place] [address], [address] [place] [address] Jax Brown MD [address] [place] [address] documented as of this encounter Procedures Procedure Name Priority Date/Time Associated Diagnosis Comments RHEUMATOID FACTOR Routine 10/26/2021 11: 35 EDT HIGH SENSITIVITY C-REACTIVE PROTEIN (CARDIOVASCULAR DISEASE) Routine 10/26/2021 11:35 EDT ANTI NUCLEAR AB (UZIEL), IFA Routine 10/26/2021 11:35 EDT documented in this encounter Results * RHEUMATOID FACTOR (10/26/2021 11:35 EDT) [facility] Rheumatoid Factor <8.6 <12.0 IU/mL 10/26/2021 21:56 EDT [facility] Blood VENOUS BLOOD / Unknown 10/26/2021 11:35 EDT 10/26/2021 21:35 EDT Provider Outr Resulting Lab CHEMISTRY & BLOOD GAS ORDERABLES Performing Organization Address [facility] Co de Phone Number [facility] [address] [place] [address] * ANTI NUCLEAR AB (UZIEL), IFA (10/26/2021 11:35 EDT) [facility] UZIEL Interpretation Negative Negative 2021 14:10 EDT [facility] Comment: Cytoplasmic Pattern Noted, Reticular/Mitochondrion-like No titer performed, UZIEL Screen is negative. Blood VENOUS BLOOD / Unknown 10/26/2021 11:35 EDT 10/26/2021 21:35 EDT Narrative [facility] - 10/27/2021 14:10 EDT Results were obtained with the INOVA NOVA Lite HEp-2 UZIEL Kit by indirect immunofluorescence. Provider Outr Resulting Lab IMMUNOLOGY A ND SEROLOGY ORDERABLES Performing Organization Address [facility] Co de Phone Number [facility] [address] [place] [address] * HIGH SENSITIVITY C-REACTIVE PROTEIN (CARDIOVASCULAR DISEASE) (10/26/2021 11:35 EDT) [facility] High Sensitivity CRP 1.64 See Note mg/L 10/26/2021 21:56 EDT [facility] Comment: Reference Range: ??Low Risk: ? <1.0 mg/L ??Average Risk: ?? 1.0 - 3.0 mg/L ??High Risk: ?>3.0 mg/L ??Indeterminate*: >10.0 mg/L ??*May be an indication of another source of inflammation or infection Blood VENOUS BLOOD / Unknown 10/26/2021 11:35 EDT 10/26/2021 21:35 EDT Provider Outr Resulting Lab CHEMISTRY & BLOOD GAS ORDERABLES [facility] [address] [place] [address] documented in this encounter Visit Diagnoses Not on filedocumented in this encounter Care Teams Freight Sorter Relationship Specialty Start Date End Date Randell Haji MD [address] [place] [address] PCP - General 04/04/11 12/12/23 Baron Hobson PA-C [address] [place] [address] PCP - General 12/13/23 documented as of this encounter
--- OUTSIDE RECORDS SUMMARY | 2024-01-29 02:20 | XMS_ITS | Encounter Summary ---
Author Organization [facility] Address [address] [place] [address] Care Team Providers Care Knot Tying Operator Name Role Phone Randell Haji MD Primary Care Provider [phone] Baron Hobson PA-C Primary Care Provider + Encounter Details Date Type Department Care Team (Late st Contact Info) Description 08/14/2021 Lab Requisition [facility] Pathology & Laboratory Medicine - [facility] [address] [place] [address] Outr Resulting Lab, Provider Social History Tobacco [...] [facility] Psychiatry - [address] [place] [address] [place], [place] [address] Zafar Sutton MD [address] [place] [address], [address] [place] [address] Jax Brown MD [address] [place] [address] documented as of this encounter Procedures Procedure Name Priority Date/Time Associated Diagnosis Comments HIV 1/2 ANTIGEN AND ANTIBODY, 4TH GENERATION Routine 08/14/2021 9:35 EDT documented in this encounter Results * HIV 1/2 ANTIGEN AND ANTIBODY, 4TH GENERATION (08/14/2021 9:35 EDT) HIV 1 and 2 Antibody/p24 Antigen, 4th Generation Negative Negative 08/15/2021 9:26 EDT [facility] Comment:If acute HIV-1 infec tion is suspected in a high risk patient, submit plasma specimen for HIV-1 RNA quantitation test. Blood VENOUS BLOOD / Unknown 08/14/2021 9:35 EDT 08/14/2021 17:02 EDT Narrative [facility] - 08/15/2021 9:26 EDT Fourth Generation assay performed on the [employer] XPT. Provider Outr Resulting Lab IMMUNOLOGY A ND SEROLOGY ORDERABLES [facility] [address] [place] [address] documented in this encounter Visit Diagnoses Not on filedocumented in this encounter Care Teams Knot Tying Operator Relationship Specialty Start Date End Date Randell Haji MD [address] [place] [address] PCP - General 04/04/11 12/12/23 Baron Hobson PA-C [address] [place] [address] PCP - General 12/13/23 documented as of this encounter
--- OUTSIDE RECORDS SUMMARY | 2024-01-29 02:21 | XMS_ITS | Encounter Summary ---
Author Organization [facility] [place] [address] Care Team Providers Care Campus Administrative Assistant Name Role Phone Terri Thrasher Kartik OTT Primary Care Provider + Encounter Details Date Type Department Care Team (Latest Contact Info) Description 10/07/2018 6:30 AM EDT Laboratory [place] [address] Pre-op testing; Facial droop; Aneurysm Social History [...] 02/26/2024 10:10 AM ED[place] [address] Dennise Jaimes APRN [facility] [place] [address] 02/26/2024 11:00 AM EDT Office [place] [address] Clinic, Dr Alfaro Team None 03/05/2024 9:40 AM EDT TH Visit (TeleHealth) [place] [address] Dennise Jaimes APRN [facility] [place] [address] documented as of this encounter Procedures Procedure Name Priority Date/Time Associated Diagnosis Comments APTT STAT 10/07/2018 6:35 AM EDT PROTHROMBIN TIME STAT 10/07/2018 6:35 AM EDT Aneurysm Pre-op testing PLATELET COUNT STAT 10/07/2018 6:35 AM EDT Pre-op testing Facial droop documented in this encounter Results * APTT (10/07/2018 6:35 AM EDT) Partial Thromboplastin Time 29 25 - 37 sec [facility] Comment: The PTT is NOT appropriate for heparin monitoring. Use the Anti-Xa level for heparin monitoring (HEP UFH) or LMWH monitoring (HEP LMW). A PTT less than 37 seconds generally indicates adequate hemostasis. Blood specimen (specimen) Venous Draw / Unknown 10/07/2018 6:35 AM EDT 10/07/2018 7:10 AM EDT Narrative Resulting Agency Comment Spec In Lab Carlos Meraz DO HEMATOLOGY ORDERABLE S [facility] [place] [address] * Prothrombin Time (10/07/2018 6:35 AM EDT) Prothrombin Time 9.9 9.4 - 12.5 sec [facility] International Normalization Ratio 0.9 [facility] Comment: An INR <2.0 indicates [...] MD HEMATOLOGY ORDERABLE S Performing Organization Address City/[facility]/ZIP Co de Phone Number [facility] [place] [address] * Platelet count (10/07/2018 6:35 AM EDT) Platelet 292 145 - 357 x10(3)/mc L [facility] Immature Plt % 1.5 0.0 - 7.4 % [facility] Comment: Limitation of the Immature Platelet Fraction (IPF)-May be less reliable when the platelet count is less than 97s642/uL due to statistical imprecision. The IPF value [...] in a decreased state of production. References: [employer] The Clinical Value of the Immature Platelet Fraction (IPF) in Cell Recovery Document Number 10-1143 11/2010 [employer] The Role of the Immature Platelet Fraction (IPF) in the Differential Diagnosis of Thrombocytopenia, Document [id number] V05/05/16 P0514 Blood specimen (specimen) 10/07/2018 6:35 AM EDT 10/07/2018 7:10 AM EDT Narrative Resulting Agency Comment Spec In Lab Eugenio Hernandez MD HEMATOLOGY ORDERABLE S Performing Organization Address City/[facility]/ZIP Co de Phone Number [facility] [place] [address] documented in this encounter Visit Diagnoses Diagnosis Pre-op testing Preoperative examination, unspecified Facial droop Facial weakness Aneurysm Aneurysm of unspecified site documented in this encounter Care Teams Campus Administrative Assistant Relationship Specialty Start Date End Date Terri Thrasher APRN PCP - General Family Medicine 08/01/18 02/14/21 documented as of this encounter
--- OUTSIDE RECORDS SUMMARY | 2024-01-29 02:21 | XMS_ITS | Encounter Summary ---
[place] [address] Care Team Providers Care Bench Machine Operator Name Role Phone Terri Thrasher APRN Primary Care Provider + Reason for Referral * Diagnostic Test (Routine) - Closed Specialty Diagnoses / Procedures Referred By Contjose t Referred To Contact Radiology Diagnoses Cerebral aneurysm without rupture Procedures MRI Angiogram Head wo Contrast (Generic) Eugenio Hernandez MD [facility] [place] [address] [place] [address] Referral ID Status Reason Start Date Expiration Date V isits Requested Visits Authorized [id number] Closed Specialty Service Requested 11/12/2019 05/13/2021 1 1 Reason for Visit * Reason Comments Follow-up Encounter Details Date Type Department Care Team (Late st Contact Info) Description 11/11/2019 3:30 PM EDT Office [place] [address] Eugenio Hernandez MD [facility] [place] [address] Cerebral aneurysm without rupture Social [...] 02/26/2024 10:10 AM EDT Appointment MRI at [place] [phone] Dennise Jaimes [facility] [place] [address] 02/26/2024 11:00 AM EDT Office Visit Orthopaedics at [place] [phone] Clinic, Dr Alfaro Team None 03/05/2024 9:40 AM EDT TH Visit (TeleHealth) Neurosurgery at [place] [phone] Dennise Jaimes [facility] [facility] [place] [address] documented as of this encounter Results * [...] who have questions please contact the health patient care that requested your imaging first. ? Electronically signed by: Nazario Cedillo MD, [facility] ([phone]), at 11/02/2020 3:49 PM Narrative 11/02/2020 3:49 [...] motion artifact limiting the study however the [place] of Garcia is fairly well visualized. The [...] motion artifact limiting the study however the [place] of [place] isfairly well visualized. The small [...] patients who have questions please contactthe health patient care that requested your imaging first. Electronically signed by: Nazario Cedlilo MD, [facility]([phone]), at 11/02/2020 3:49 PM Eugenio Hernandez MD IMG MRI ORDERABLES documented in this encounter Visit Diagnoses Diagnosis Cerebral aneurysm without rupture Cerebral aneurysm, nonruptured Cerebral aneurysm without rupture Cerebral aneurysm, nonruptured documented in this encounter Care Teams Bench Machine Operator Relationship Specialty Start Date End Date Terri Thrasher APRN PCP - General Family Medicine 08/01/18 02/14/21 documented as of this encounter
--- OUTSIDE RECORDS SUMMARY | 2024-01-29 02:21 | XMS_ITS | Encounter Summary ---
Author Organization [facility] [place] [address] Care Team Providers Care Insecticide Mixer Name Role Phone Terri Thrasher NAMRATA Primary Care Provider + Encounter Details Date Type Department Care Team (Late st Contact Info) Description 09/24/2018 12:10 AM EDT Ancillary Procedure [place] [phone] Huang Nicole MD [facility] [place] [address] Social History Tobacco Use Types Packs/Day Years [...] 02/26/2024 10:10 AM [place] [address] Dennise Jaimes APRN [facility] [place] [address] 02/26/2024 11:00 AM EDT Office [place] [address] Clinic, Dr Alfaro Team None 03/05/2024 9:40 AM EDT TH Visit (TeleHealth) [place] [address] Dennise Jaimes APRN [facility] [place] [address] documented as of this encounter Procedures Procedure Name Priority Date/Time Associated Diagnosis Comments FILM LIBRARY STORAGE ONLY ULTRASOUND STUDY Routine 09/24/2018 12:10 AM EDT documented in this encounter Results * Film Library- Storage Only Ultrasound Study (09/24/2018 12:10 AM EDT) Narrative [facility] - 11/07/2018 10:31 AM EDT This exam is auto-finalizing. It's purpose is for storage only. Huang Nicole MD IMG FILM LIBRARY ORD ERABLES Performing Organization Address City/State/[facility] Co de Phone Number [place], [place] documented in this encounter Visit Diagnoses Not on filedocumented in this encounter Care Teams Insecticide Mixer Relationship Specialty Start Date End Date Terri Thrasher APRN PCP - General Family Medicine 08/01/18 02/14/21 documented as of this encounter
--- OUTSIDE RECORDS SUMMARY | 2024-01-29 02:21 | XMS_ITS | Encounter Summary ---
[place] [address] Care Team Providers Care Shoe Sewing Machine Operator And Tender Name Role Phone Terri Thrasher NAMRATA Primary Care Provider + Reason for Referral * Diagnostic Test (Routine) - Closed Specialty Diagnoses / Procedures Referred By Contac t Referred To Contact Radiology Diagnoses Cerebral aneurysm without rupture Procedures IR Arteriogram Cerebral [facility] Neurosurgery [address] [place] [phone] [facility] [place] [address] Referral ID Status Reason Start Date Expiration Date V isits Requested Visits Authorized [id number] Closed Specialty Service Requested 09/08/2018 09/08/2019 1 1 Reason for Visit * Diagnostic Test (Routine) - Closed Specialty Diagnoses / Procedures Referred By Contac t Referred To Contact Radiology Diagnoses Cerebral aneurysm without rupture Procedures IR Arteriogram Cerebral [facility] Neurosurgery [address] [place] [phone] [facility] [place] [address] Referral ID Status Reason Start Date Expiration Date V isits Requested Visits Authorized [id number] Closed Specialty Service Requested 09/08/2018 09/08/2019 1 1 Encounter Details Date Type Department Care Team (Latest Contact Info) Description 10/07/2018 6:41 AM EDT - 10/07/2018 11:59 PM EDT Hospital [place] [address] Eugenio Hernandez MD [facility] [place] [address] Pre-op testing; Facial droop; Cerebral aneurysm without [...] Ojeda RN - 10/07/2018 8:39 AM EDT [facility] Interventional Radiology Post Angiography Instructions Procedure: Diagnostic [...] or hoildays, call and ask for the residential lawn specialist cotton seed culler. OR Vascular Department at until 4:45pm. After 4:45pm call [phone] and ask for the Vascular resident cotton seed culler. 10. If you are a diabetic and [...] Brief description of the procedure: ?? R [employer] access ?? R ICA selection and cerebral [...] : 1980 AGE: 38 y.o. ?? Address: [place] [address] (home) Mobile: Telephone Information: ?? Referring Provider: Eugenio Hernandez REASON FOR VISIT: Diagnostic cerebral angiogram Order Questions Answers Where will study be performed? [facility] [120] Is the patient on anticoagulant [...] 02/26/2024 10:10 AM [place] [phone] Dennise Jaimes APRN [facility] [place] [address] 02/26/2024 11:00 AM EDT Office [place] [phone] Clinic, Dr Aflaro Team None 03/05/2024 9:40 AM EDT TH Visit (TeleHealth) [place] [address] Dennise Jaimes APRN [facility] [place] [address] documented as of this encounter Procedures Procedure [...] 125 cm Glidewire, 0.035 inch J-wire, 5 St Helenian [place] sheath, 5Fr vert catheter, Mynx vascular closure device. TECHNIQUE: The patient was brought to the angiography suite. The right groin was sterilely prepped and draped. Using micropuncture set, the femoral artery was accessed and the 5 St Helenian pinnacle sheath was placed, and double flushed. 5 St Helenian vert catheter was positioned in the descending [...] 0.035 125 cm Glidewire, 0.035 inch J-wire,5 St Helenian [place] sheath, 5Fr vert catheter, Mynx vascular closure device. TECHNIQUE: The patient was brought to the angiography suite. The rightgroin was sterilely prepped and draped. Using micropuncture set, the femoral arterywas accessed and the 5 St Helenian pinnacle sheath was placed, and double flushed.5 St Helenian vert catheter was positioned in the descending [...] contact the number below. Eugenio Hernandez MD [facility] IR ORDERABLES * Platelet count (10/07/2018 6:35 AM EDT) Platelet 292 145 - 357 x10(3)/mc L [facility] Immature Plt % 1.5 0.0 - 7.4 % [facility] Comment: Limitation of the Immature Platelet Fraction (IPF)-May be less reliable when the platelet count is less than 48k701/uL due to statistical imprecision. The IPF value [...] in a decreased state of production. References: [employer] The Clinical Value of the Immature Platelet Fraction (IPF) in Cell Recovery Document Number [id number] 11/2010 [employer] The Role of the Immature Platelet Fraction (IPF) in the Differential Diagnosis of Thrombocytopenia, Document [id number] V05 P05/14 Blood specimen (specimen) 10/07/2018 6:35 AM EDT 10/07/2018 7:10 AM EDT Narrative Resulting Agency Comment Spec In Lab Eugenio Hernandez MD HEMATOLOGY ORDERABLE S [facility] [place] [address] documented in this encounter Visit Diagnoses Diagnosis [...] mLs documented in this encounter Care Teams Shoe Sewing Machine Operator And Tender Relationship Specialty Start Date End Date Terri Thrasher APRN PCP - General Family Medicine 08/01/18 02/14/21 documented as of this encounter
--- OUTSIDE RECORDS SUMMARY | 2024-01-29 02:21 | XMS_ITS | Encounter Summary ---
[place] [address] Care Team Providers Care Professor Of Biostatistics Name Role Phone Claudia Belle APRN Primary Care Provider Reason for Referral * Consultation (Routine) - Denied Specialty Diagnoses / Procedures Referred By Jesika t Referred To Contact Rheumatology Diagnoses Pain in joint, multiple sites Abnormal reflex Claudia Belle APRN [address] [place] [address] [facility] Rheumatology [address] [place] [phone] Referral ID Status Reason Start Date Expiration Date V isits Requested Visits Authorized [id number] Denied Consult, Test & Treat 11/13/2021 11/13/2022 6 0 Encounter Details Date Type Department Care Team (Late st Contact Info) Description 11/13/2021 Transcribe Orders eDH Incoming Referrals [phone] Claudia Belle APRN [address] [place], [place] [phone] Pain in joint, multiple sites; Abnormal reflex [...] 02/26/2024 10:10 AM [place] [address] Dennise Jaimes, NAMRATA [facility] [place] [address] 02/26/2024 11:00 AM EDT Office [place] [address] Clinic, Dr Alfaro Team None 03/05/2024 9:40 AM EDT TH Visit (TeleHealth) Neurosurgery at [place] [phone] Dennise Jaimes APRN [facility] [place] [address] Scheduled Referrals Name Type Priority Associated Diagnoses Order Schedule Referral to Rheumatology Outpatient Referral Routine Pain in joint, multiple sites Abnormal reflex Ordered: 11/13/2021 documented as of this encounter Visit Diagnoses Diagnosis Pain in joint, multiple sites Abnormal reflex documented in this encounter Care Teams Professor Of Biostatistics Relationship Specialty Start Date End Date Claudia Belle APRN [address] [place] [address] PCP - General Family Medicine 11/11/21 02/23/22 documented as of this encounter
--- OUTSIDE RECORDS SUMMARY | 2024-01-29 02:21 | XMS_ITS | Encounter Summary ---
Author Organization [facility] Address [facility] [place] [address] Care Team Providers Care Security Lead Name Role Phone Terri Thrasher NAMRATA Primary Care Provider + Encounter Details Date Type Department Care Team (Late st Contact Info) Description 01/22/2021 Notes Only Neurology at [facility] [address] [place] [address] Timmy Altman MD [facility] [place] [address] Social History Tobacco Use Types Packs/Day Years [...] Altman MD - 01/22/2021 6:41 PM EDT [facility] Neurology Surgery Aid Attending Neurologist note This note is to document a telephone conversation I had with: Dr. Jillian Otto From [facility] On [place] Mcn[place] 40 y.o. female 1980 [id number] Information Received: 40-year-old female with known left [...] for patient to contact her provider at [facility], Dr. Eugenio Hernandez, tomorrow. Question(s) from referring [...] will copy the patient's provider here at [facility] with this note. The referring physician was satisfied with the impressions and recommendations. Please note that I have not seen, examined, or evaluated this patient in person or via a video system. Therefore, my impressions and recommendations are based solely on the information received from the referring provider. Jax Altman MD Department of Neurology [facility] documented in this encounter Plan of Treatment Upcoming Encounters Date Type Department Care Team (Late st Contact Info) Description 02/26/2024 10:10 AM [place] [address] Dennise Jaimes APRN [facility] [place] [address] 02/26/2024 11:00 AM EDT Office [place] [phone] Clinic, Dr Alfaro Team None 03/05/2024 9:40 AM EDT TH Visit (TeleHealth) [place] [address] Dennise Jaimes DISTRIBUTION CLERK [facility] [place] [address] documented as of this encounter Visit Diagnoses Not on filedocumented in this encounter Care Teams Security Lead Relationship Specialty Start Date End Date Terri Thrasher APRN PCP - General Family Medicine 08/01/18 02/14/21 documented as of this encounter
--- OUTSIDE RECORDS SUMMARY | 2024-01-29 02:21 | XMS_ITS | Encounter Summary ---
Author Organization [facility] [place] [address] Care Team Providers Care Radio Electronics Officer Name Role Phone Terri Thrasher APRN Primary Care Provider + Encounter Details Date Type Department Care Team (Late st Contact Info) Description 11/02/2020 3:30 PM EDT [place] [phone] Eugenio Hernandez MD [facility] [place] [address] Cerebral aneurysm without rupture Social History Tobacco [...] 02/26/2024 10:10 [place] [address] Dennise Jaimes, PLANT MAINTENANCE SUPERVISOR [facility] [place] [address] 02/26/2024 11:00 AM EDT Office [place] [phone] Clinic, Dr Alfaro Team None 03/05/2024 9:40 AM EDT TH Visit (TeleHealth) [place] [address] Dennise Jaimes, PLANT MAINTENANCE SUPERVISOR [facility] [place] [address] documented as of this encounter Visit Diagnoses Diagnosis Cerebral aneurysm without rupture Cerebral aneurysm, nonruptured documented in this encounter Care Teams Radio Electronics Officer Relationship Specialty Start Date End Date Terri Thrasher APRN PCP - General Family Medicine 08/01/18 02/14/21 documented as of this encounter
--- OUTSIDE RECORDS SUMMARY | 2024-01-29 02:21 | XMS_ITS | Encounter Summary ---
[place] [address] Care Team Providers Care Sewer Tapper Name Role Phone Terri Thrasher NAMRATA Primary Care Provider + Reason for Referral * Diagnostic Test (Routine) - Closed Specialty Diagnoses / Procedures Referred By Jesika maddox Referred To Contact Radiology Diagnoses Cerebral aneurysm without rupture Procedures MRI Angiogram Head wo Contrast (Generic) Eugenio Hernandez MD [facility] DR [place] [address] [place] [address] Referral ID Status Reason Start Date Expiration Date V isits Requested Visits Authorized [id number] Closed Specialty Service Requested 11/12/2019 05/13/2021 1 1 Reason for Visit * Diagnostic Test (Routine) - Closed Specialty Diagnoses / Procedures Referred By Contac t Referred To Contact Radiology Diagnoses Cerebral aneurysm without rupture Procedures MRI Angiogram Head wo Contrast (Generic) Eugenio Hernandez MD [facility] [place] [address] [place] [address] Referral ID Status Reason Start Date Expiration Date V isits Requested Visits Authorized [id number] Closed Specialty Service Requested 11/12/2019 05/13/2021 1 1 Encounter Details Date Type Department Care Team (Latest Contact Info) Description 11/02/2020 1:31 PM EDT - 11/02/2020 11:59 PM EDT Hospital Encounter MRI at [place] [phone] Eugenio Hernandez MD [facility] [place] [address] Cerebral aneurysm without rupture Discharge Disposition: Home [...] 02/26/2024 10:10 AM EDT Appointment MRI at [place] [phone] Dennise Jaimes APRN [facility] [place] [place] [address] 02/26/2024 11:00 AM EDT Office [place] [address] Clinic, Dr Alfaro Team None 03/05/2024 9:40 AM EDT TH Visit (TeleHealth) [place] [address] Dennise Jaimes KERRICK KLEANER OPERATOR [facility] [place] [address] documented as of this encounter Procedures Procedure [...] ? Electronically signed by: Nazario Cedillo MD, [facility] ([phone]), at 11/02/2020 3:49 PM Narrative 11/02/2020 3:49 [...] motion artifact limiting the study however the [place] of [place] is fairly well visualized. The [...] motion artifact limiting the study however the [place] of [place] isfairly well visualized. The small [...] first. Electronically signed by: Nazario Cedillo MD, [facility]([phone]), at 11/02/2020 3:49 PM Eugenio Hernandez MD IMG MRI ORDERABLES documented in this encounter Visit Diagnoses Diagnosis Cerebral aneurysm without rupture Cerebral aneurysm, nonruptured documented in this encounter Care Teams Sewer Tapper Relationship Specialty Start Date End Date Terri Thrasher APRN PCP - General Family Medicine 08/01/18 02/14/21 documented as of this encounter
--- OUTSIDE RECORDS SUMMARY | 2024-01-29 02:21 | XMS_ITS | Encounter Summary ---
Author Organization [facility] [place] [address] Care Team Providers Care Windows Infrastructure Engineer Name Role Phone Terri Thrasher NAMRATA Primary Care Provider + Reason for Visit * Reason Comments Nicotine Dependence * Consultation (Routine) - Closed Specialty Diagnoses / Procedures Referred By Contac t Referred To Contact Thoracic Surgery Diagnoses Nicotine dependence, cigarettes, uncomplicated Tobacco abuse counseling Eugenio Hernandez MD [facility] [place] [address] Dot Garcia APRN [facility] C[place]IOTH[place]ACIC [place] [address] Referral ID Status Reason Start Date Expiration Date V isits Requested Visits Authorized [id number] Closed Consult, Test & Treat 09/03/2018 09/03/2019 1 1 Encounter Details Date Type Department Care Team (Late st Contact Info) Description 09/16/2018 12:30 PM EDT Office Visit [place] [address] Dot Garcia APRN [facility] [place] [address] Nicotine dependence, cigarettes, uncomplicated; Tobacco abuse counseling [...] Nicotine Replacement Therapy , September 02, 2012: https://www.federalregister.gov/articles//2013-62978/modifications-to- dgckzyyb-aw-uticpskf-rnuvrrufvsg-plfijaq-eepkliou-aaq-dsvs-bsy-agkgkax-oqrkf-psv documented in this encounter Progress Notes * Dot Garcia APRN - 09/16/2018 12:30 PM EDT Thoracic Surgery - Tobacco Cessation Consultation Dot Garcia APRN [place] [address] FAX: HPI: Holly Mcnally is a 38 [...] file Gets together: Not on file Attends bahai service: Not on file Active member of [...] in places where it is forbidden ex [facility] No Yes ? 0 3. Which [...] APRN 09/16/18 Thoracic Surgery - Tobacco Cessation [facility] documented in this encounter Plan of Treatment Upcoming Encounters Date Type Department Care Team (Late st Contact Info) Description 02/26/2024 10:10 AM EDT [place] [address] Dennise Jaimes APRN [facility] [place] [address] 02/26/2024 11:00 AM EDT Office Visit Orthopaedics at [place] [phone] Clinic, Dr Alfaro Team None 03/05/2024 9:40 AM EDT TH Visit (TeleHealth) [place] [address] Dennise Jaimes SERVICE PORTER [facility] [place] [address] documented as of this encounter Visit Diagnoses Diagnosis Nicotine dependence, cigarettes, uncomplicated Tobacco abuse counseling Counseling on substance use and abuse documented in this encounter Care Teams Windows Infrastructure Engineer Relationship Specialty Start Date End Date Terri Thrasher APRN PCP - General Family Medicine 08/01/18 02/14/21 documented as of this encounter
--- OUTSIDE RECORDS SUMMARY | 2024-01-29 02:21 | XMS_ITS | Encounter Summary ---
[place] [address] Care Team Providers Care Supervisor Last Model Department Name Role Phone Claudia vance Nery OTT Primary Care Provider [phone] Reason for Referral * Diagnostic Test (Routine) - Closed Specialty Diagnoses / Procedures Referred By Jesika t Referred To Contact Radiology Diagnoses Aneurysm of ophthalmic artery Procedures MRI Angiogram Head wo Contrast (Generic) Dennise Jaimes APRN [facility] [place] [address] [place] [address] Referral ID Status Reason Start Date Expiration Date V isits Requested Visits Authorized [id number] Closed Specialty Service Requested 11/24/2021 05/26/2023 1 1 Encounter Details Date Type Department Care Team (Late st Contact Info) Description 11/24/2021 1:00 PM EDT Office Visit [place] [address] Dennise Jaimes APRN [facility] [place] [address] Aneurysm of ophthalmic artery Social History Tobacco [...] 02/26/2024 10:10 AM EDT [place]ment [place] [phone] Dennise Jaimes APRN [facility] [place] [address] 02/26/2024 11:00 AM EDT Office Visit [place] [address] Clinic, Dr Alfaro Team None 03/05/2024 9:40 AM EDT TH Visit (TeleHealth) [place] [address] Dennise Jaimes, NAMRATA [facility] [place] [address] documented as of this encounter Results * [...] questions please contact the health customer care agent that requested your imaging first. ? Electronically signed by: Nazario Cedillo MD, [facility] ([phone]), at 12/21/2022 6:39 PM Narrative 12/21/2022 6:39 [...] have questions please contactthe health customer care agent that requested your imaging first. Dennise Kartik Theodore OTT [facility] MRI ORDERABLES documented in this encounter Visit Diagnoses Diagnosis Aneurysm of ophthalmic artery Cerebral aneurysm, nonruptured Aneurysm of ophthalmic artery Cerebral aneurysm, nonruptured documented in this encounter Care Teams Supervisor Last Model Department Relationship Specialty Start Date End Date Claudia Belle, TAX SERVICES MANAGER [address] [place] [address] PCP - General Family Medicine 11/11/21 02/23/22 documented as of this encounter
--- OUTSIDE RECORDS SUMMARY | 2024-01-29 02:21 | XMS_ITS | Encounter Summary ---
Author Organization [facility] [place] [address] Care Team Providers Care Diesel Pile Hammer Operator Name Role Phone Terri Thrasher NAMRATA Primary Care Provider + Encounter Details Date Type Department Care Team (Late st Contact Info) Description 09/23/2018 9:10 PM EDT Ancillary Procedure [place] [phone] Leif Hoffman MD [facility] [place] [address] Social History Tobacco Use Types Packs/Day Years [...] 02/26/2024 10:10 [place] [address] Dennise Jaimes APRN [facility] [place] [address] 02/26/2024 11:00 AM EDT Office [place] [address] Clinic, Dr Alfaro Team None 03/05/2024 9:40 AM EDT TH Visit (TeleHealth) [place] [address] Dennise Jaimes APRN [facility] [place] [address] documented as of this encounter Procedures Procedure Name Priority Date/Time Associated Diagnosis Comments FILM LIBRARY STORAGE ONLY CT HEAD Routine 09/23/2018 9:05 PM EDT documented in this encounter Results * Film Library- Storage Only CT Head (09/23/2018 9:05 PM EDT) Narrative [facility] - 09/23/2018 9:05 PM EDT This exam is auto-finalizing. It's purpose is for storage only. Leif Hoffman MD IMG FILM LIBRARY ORD ERABLES Performing Organization Address City/State/[facility] Co de Phone Number [place], [place] documented in this encounter Visit Diagnoses Not on filedocumented in this encounter Care Teams Diesel Pile Hammer Operator Relationship Specialty Start Date End Date Terri Thrasher APRN PCP - General Family Medicine 08/01/18 02/14/21 documented as of this encounter
--- OUTSIDE RECORDS SUMMARY | 2024-01-29 02:21 | XMS_ITS | Encounter Summary ---
Author Organization [facility] [place] [address] Care Team Providers Care Disease Case Manager Rn Name Role Phone Unknown Primary Care Provider Unavailabl e Encounter Details Date Type Department Care Team (Late st Contact Info) Description 10/04/2022 Tele[place] [address] Juliet Gutierres, RN Social History Tobacco Use Types Packs/Day [...] 02/26/2024 10:10 [place] [address] Dennise Jaimes, HOME CONNECT LPN [facility] [place] [address] 02/26/2024 11:00 AM EDT [place] [address] Clinic, Dr Alfaro Team None 03/05/2024 9:40 AM EDT TH Visit (TeleHealth) [place] [phone] Dennise Jaimes APRN [facility] [place] [address] documented as of this encounter Visit Diagnoses Not on filedocumented in this encounter Care Teams Disease Case Manager Rn Relationship Specialty Start Date End Date Unknown None PCP - General 02/24/22 01/31/23 documented as of this encounter
--- OUTSIDE RECORDS SUMMARY | 2024-01-29 02:21 | XMS_ITS | Encounter Summary ---
Author Organization [facility] [place] [address] Care Team Providers Care Extrusion Press Operator Name Role Phone Terri Thrasher NAMRATA Primary Care Provider + Encounter Details Date Type Department Care Team (Late st Contact Info) Description 09/24/2018 Ancillary Procedure [place] [phone] Huang Nicole MD [facility] [place] [address] Social History Tobacco Use Types Packs/Day Years [...] 02/26/2024 10:10 [place] [address] Dennise Jaimes APRN [facility] [place] [address] 02/26/2024 11:00 AM EDT Office [place] [address] Clinic, Dr Alfaro Team None 03/05/2024 9:40 AM EDT TH Visit (TeleHealth) [place] [address] Dennise Jaimes APRN [facility] [place] [address] documented as of this encounter Procedures Procedure Name Priority Date/Time Associated Diagnosis Comments FILM LIBRARY STORAGE ONLY MR HEAD Routine 09/24/2018 12:00 AM EDT documented in this encounter Results * Film Library- Storage Only MR Head (09/24/2018 12:00 AM EDT) Narrative [facility] - 11/07/2018 10:16 AM EDT This exam is auto-finalizing. It's purpose is for storage only. Huang Nicole MD IMG FILM LIBRARY ORD ERABLES [place], [place] documented in this encounter Visit Diagnoses Not on filedocumented in this encounter Care Teams Extrusion Press Operator Relationship Specialty Start Date End Date Terri Thrasher APRN PCP - General Family Medicine 08/01/18 02/14/21 documented as of this encounter
--- OUTSIDE RECORDS SUMMARY | 2024-01-29 02:21 | XMS_ITS | Encounter Summary ---
Author Organization [facility] [place] [address] Care Team Providers Care Renewable Energy Engineer Name Role Phone Terri Thrasher NAMRATA Primary Care Provider + Encounter Details Date Type Department Care Team (Late st Contact Info) Description 09/08/2018 Telephone Neurosurgery at [facility] [place] [address] Jenny Ferrara Social History Tobacco Use Types [...] from school Best number to reach caller: [phone] Reason for call: Pt called to inquire [...] 02/26/2024 10:10 AM EDT Appointment MRI at [address] Dennise Jaimes APRN [facility] [place] [address] 02/26/2024 11:00 AM EDT Office Visit Orthopaedics at [place] [phone] Clinic, Dr Alfaro Team None 03/05/2024 9:40 AM EDT TH Visit (TeleHealth) Neurosurgery at [place] [phone] Dennise Jaimes APRN [facility] [place] [address] documented as of this encounter Visit Diagnoses Not on filedocumented in this encounter Care Teams Renewable Energy Engineer Relationship Specialty Start Date End Date Terri Thrasher APRN PCP - General Family Medicine 08/01/18 02/14/21 documented as of this encounter
--- OUTSIDE RECORDS SUMMARY | 2024-01-29 02:21 | XMS_ITS | Encounter Summary ---
[place] [address] Care Team Providers Care Manager Rn Name Role Phone Terri Thrasher NAMRATA Primary Care Provider + Reason for Referral * Diagnostic Test (Routine) - Closed Specialty Diagnoses / Procedures Referred By Jesika maddox Referred To Contact Radiology Diagnoses Cerebral aneurysm without rupture Procedures IR Arteriogram Cerebral [facility] [address] [place] [address] [facility] [place] [address] Referral ID Status Reason Start Date Expiration Date V isits Requested Visits Authorized [id number] Closed Specialty Service Requested 09/08/2018 09/08/2019 1 1 Encounter Details Date Type Department Care Team (Late st Contact Info) Description 09/08/2018 Orders [place] [address] Mallory Delgado RN Cerebral aneurysm [...] 02/26/2024 10:10 AM EDT [place] [address] Dennise Jaimes, MARKETING PROJECT SPECIALIST [facility] [place] [address] 02/26/2024 11:00 AM EDT Office Visit [place] [address] Clinic, Dr Alfaro Team None 03/05/2024 9:40 AM EDT TH Visit (TeleHealth) [place] [address] Dennise Jaimes APRN [facility] [place] [address] documented as of this encounter Results * [...] below. ? Electronically signed by: Eugenio Hernandez [facility] ([phone]), at 10/21/2018 5:57 PM Narrative 10/21/2018 5:57 [...] 125 cm Glidewire, 0.035 inch J-wire, 5 Ghanaian [place] sheath, 5Fr vert catheter, Mynx vascular closure device. TECHNIQUE: The patient was brought to the angiography suite. The right groin was sterilely prepped and draped. Using micropuncture set, the femoral artery was accessed and the 5 Ghanaian pinnacle sheath was placed, and double flushed. 5 Ghanaian vert catheter was positioned in the descending [...] 0.035 125 cm Glidewire, 0.035 inch J-wire,5 Ghanaian Lakes[place] sheath, 5Fr vert catheter, Mynx vascular closure device. TECHNIQUE: The patient was brought to the angiography suite. The rightgroin was sterilely prepped and draped. Using micropuncture set, the femoral arterywas accessed and the 5 Ghanaian pinnacle sheath was placed, and double flushed.5 Ghanaian vert catheter was positioned in the descending [...] Electronically signed by: ROSETTA Galaviz [facility]([phone]), at 10/21/2018 5:57 PM Eugenio Hernandez MD IMG IR ORDERABLES documented in this encounter Visit Diagnoses Diagnosis Cerebral aneurysm without rupture Cerebral aneurysm, nonruptured Pre-op testing Preoperative examination, unspecified Facial droop Facial weakness Cerebral aneurysm without rupture Cerebral aneurysm, nonruptured documented in this encounter Care Teams Manager Rn Relationship Specialty Start Date End Date Terri Thrasher APRN PCP - General Family Medicine 08/01/18 02/14/21 documented as of this encounter
--- OUTSIDE RECORDS SUMMARY | 2024-01-29 02:21 | XMS_ITS | Encounter Summary ---
Author Organization [facility] [place] [address] Care Team Providers Care Test Facility Engineer Name Role Phone UliLashawn NAMRATA Primary Care Provider [phone] Encounter Details Date Type Department Care Team (Late st Contact Info) Description 02/20/2021 Orders [place] [address] Poncho De La Cruz MD [facility] [place] [address] Thyroid nodule Social History Tobacco Use Types [...] 02/26/2024 10:10 AM [place] [address] Dennise Jaimes APRN [facility] [place] [address] 02/26/2024 11:00 AM EDT Office [place] [address] Clinic, Dr Alfaro Team None 03/05/2024 9:40 AM EDT TH Visit (TeleHealth) [place] [address] Dennise Jaimes APRN [facility] [place] [address] documented as of this encounter Visit Diagnoses Diagnosis Thyroid nodule Nontoxic uninodular goiter documented in this encounter Care Teams Test Facility Engineer Relationship Specialty Start Date End Date Lashawn Mcnally APRN [address] [place] [address] PCP - General Family Medicine 02/15/21 11/10/21 documented as of this encounter
--- OUTSIDE RECORDS SUMMARY | 2024-01-29 02:21 | XMS_ITS | Encounter Summary ---
[place] [address] Care Team Providers Care Medical Psychotherapist Name Role Phone Terri Thrasher NAMRATA Primary Care Provider + Reason for Referral * Diagnostic Test (Routine) - Closed Specialty Diagnoses / Procedures Referred By Jesika maddox Referred To Contact Radiology Diagnoses Cerebral aneurysm without rupture Procedures MRI Angiogram Head wo Contrast (Generic) [facility] [address] [place] [address] [facility] [place] [address] Referral ID Status Reason Start Date Expiration Date V isits Requested Visits Authorized [id number] Closed Specialty Service Requested 08/17/2019 02/16/2021 1 1 Encounter Details Date Type Department Care Team (Late st Contact Info) Description 08/17/2019 Orders [place] [address] Mallory Delgado RN Cerebral aneurysm [...] 02/26/2024 10:10 AM ED[place] [address] Dennise Jaimes, CONTINUOUS PICKLING LINE PICKLER HELPER [facility] [place] [address] 02/26/2024 11:00 AM EDT Office [place] [address] Clinic, Dr Alfaro Team None 03/05/2024 9:40 AM EDT TH Visit (TeleHealth) [place] [address] Dennise Jaimes APRN [facility] [place] [address] documented as of this encounter Results * [...] number below. Electronically signed by: ROSETTA Tavares [facility] ([phone]),at 11/11/2019 3:32 PM Eugenio Hernandez MD IMG MRI ORDERABLES documented in this encounter Visit Diagnoses Diagnosis Cerebral aneurysm without rupture Cerebral aneurysm, nonruptured Cerebral aneurysm without rupture Cerebral aneurysm, nonruptured documented in this encounter Care Teams Medical Psychotherapist Relationship Specialty Start Date End Date Terri Thrasher APRN PCP - General Family Medicine 08/01/18 02/14/21 documented as of this encounter
--- OUTSIDE RECORDS SUMMARY | 2024-01-29 02:21 | XMS_ITS | Encounter Summary ---
[facility] [place] [address] Care Team Providers Care Multiple Cut Off Saw Operator Name Role Phone Terri Thrasher MONOTYPE KEYBOARD OPERATOR Primary Care Provider + Encounter Details Date Type Department Care Team (Late st Contact Info) Description 09/23/2018 [place] [address] Veronica Michael Social History Tobacco Use Types [...] 02/26/2024 10:10 AM [place] [address] Dennise Jaimes APRN [facility] [place] [address] 02/26/2024 11:00 AM EDT Office [place] [address] Clinic, Dr Alfaro Team None 03/05/2024 9:40 AM EDT TH Visit (TeleHealth) [place] [address] Dennise Jaimes APRN [facility] [place] [address] documented as of this encounter Visit Diagnoses Not on filedocumented in this encounter Care Teams Multiple Cut Off Saw Operator Relationship Specialty Start Date End Date Terri Thrasher APRN PCP - General Family Medicine 08/01/18 02/14/21 documented as of this encounter
--- OUTSIDE RECORDS SUMMARY | 2024-01-29 02:21 | XMS_ITS | Encounter Summary ---
Author Organization [facility] [place] [address] Care Team Providers Care Criminalist Name Role Phone Unknown Primary Care Provider Unavailabl e Encounter Details Date Type Department Care Team (Late st Contact Info) Description 09/19/2022 Ancillary Procedure [place] [address] Baron Hobson PA [address] [place], [place] [address] Social History Tobacco Use Types Packs/Day Years [...] 02/26/2024 10:10 AM ED[place] [address] Dennise Jaimes APRN [facility] [place] [address] 02/26/2024 11:00 AM EDT Office [place] [address] Clinic, Dr Alfaro Team None 03/05/2024 9:40 AM EDT TH Visit (TeleHealth) [place] [address] Dennise Jaimes APRN [facility] [place] [address] documented as of this encounter Procedures Procedure Name Priority Date/Time Associated Diagnosis Comments FILM LIBRARY STORAGE ONLY MR KNEE Routine 09/19/2022 12:00 AM EDT documented in this encounter Results * Film Library- Storage Only MR Knee (09/19/2022 12:00 AM EDT) Narrative [facility] - 02/11/2023 5:05 AM EDT This exam is auto-finalizing. It's purpose is for storage only. Baron STANFORD IMG FILM LIBRARY O RDERABLES [place], [place] documented in this encounter Visit Diagnoses Not on filedocumented in this encounter Care Teams Criminalist Relationship Specialty Start Date End Date Unknown None PCP - General 02/24/22 01/31/23 documented as of this encounter
--- OUTSIDE RECORDS SUMMARY | 2024-01-29 02:21 | XMS_ITS | Encounter Summary ---
Author Organization [facility] [place] [address] Care Team Providers Care Inside Sales Specialist Name Role Phone Terri Thrasher OXYGEN THERAPY TECHNICIAN Primary Care Provider + Encounter Details Date Type Department Care Team (Late st Contact Info) Description 09/09/2018 [place] [address] Veronica Michael Social History Tobacco Use Types [...] 02/26/2024 10:10 [place] [address] Dennise Jaimes APRN [facility] [place] [place] [address] 02/26/2024 11:00 AM EDT [place] [address] Clinic, Dr Alfaro Team None 03/05/2024 9:40 AM EDT TH Visit (TeleHealth) [place] [address] Dennise Jaimes APRN [facility] [place] [address] documented as of this encounter Visit Diagnoses Not on filedocumented in this encounter Care Teams Inside Sales Specialist Relationship Specialty Start Date End Date Terri Thrasher APRN PCP - General Family Medicine 08/01/18 02/14/21 documented as of this encounter
--- OUTSIDE RECORDS SUMMARY | 2024-01-29 02:21 | XMS_ITS | Encounter Summary ---
Author Organization [facility] [place] [address] Care Team Providers Care Sales Operations Assistant Name Role Phone Terri Thrasher NAMRATA Primary Care Provider + Reason for Referral * Diagnostic Test (Routine) - Closed Specialty Diagnoses / Procedures Referred By Contac t Referred To Contact Radiology Diagnoses Cerebral aneurysm without rupture Procedures MRI Angiogram Head wo Contrast (Generic) [facility] [address] [place] [id number] [place] [address] Referral ID Status Reason Start Date Expiration Date V isits Requested Visits Authorized [id number] Closed Specialty Service Requested 08/17/2019 02/16/2021 1 1 Reason for Visit * Diagnostic Test (Routine) - Closed Specialty Diagnoses / Procedures Referred By Contac t Referred To Contact Radiology Diagnoses Cerebral aneurysm without rupture Procedures MRI Angiogram Head wo Contrast (Generic) [facility] [address] [place] [phone] [place] [address] Referral ID Status Reason Start Date Expiration Date V isits Requested Visits Authorized [id number] Closed Specialty Service Requested 08/17/2019 02/16/2021 1 1 Encounter Details Date Type Department Care Team (Latest Contact Info) Description 11/11/2019 12:13 PM EDT - 11/11/2019 11:59 PM EDT Hospital [place] [address] Eugenio Hernandez MD [facility] [place] [address] Cerebral aneurysm without rupture Discharge Disposition: Home [...] 02/26/2024 10:10 AM ED[place] [address] Dennise Jaimes APRN [facility] [place] [address] 02/26/2024 11:00 AM EDT Office [place] [address] Clinic, Dr Alfaro Team None 03/05/2024 9:40 AM EDT TH Visit (TeleHealth) [place] [address] Dennise Jaimes APRN [facility] [place] [address] documented as of this encounter Procedures Procedure [...] contact the number below. Electronically signed by: Lillian Farnsworth [facility] [place] ([phone]),at 11/11/2019 3:32 PM Eugenio Hernandez MD IMG MRI ORDERABLES documented in this encounter Visit Diagnoses Diagnosis Cerebral aneurysm without rupture Cerebral aneurysm, nonruptured documented in this encounter Care Teams Sales Operations Assistant Relationship Specialty Start Date End Date Terri Thrasher, TOW MOTOR DRIVER PCP - General Family Medicine 08/01/18 02/14/21 documented as of this encounter
--- OUTSIDE RECORDS SUMMARY | 2024-01-29 02:21 | XMS_ITS | Encounter Summary ---
[place] [address] Care Team Providers Care Septic Tank Servicer Name Role Phone BarbraLucasClaudiatony Gabriel APRN Primary Care Provider [phone] Reason for Referral * Diagnostic Test (Routine) - Closed Specialty Diagnoses / Procedures Referred By Contac t Referred To Contact Radiology Diagnoses Cerebral aneurysm Procedures MRI Angiogram Head wo Contrast (Generic) Dennise Jaiems APRN [facility] [place] [address] [place] [address] Referral ID Status Reason Start Date Expiration Date V isits Requested Visits Authorized [id number] Closed Specialty Service Requested 10/11/2021 04/12/2023 1 1 Reason for Visit * Diagnostic Test (Routine) - Closed Specialty Diagnoses / Procedures Referred By Contac t Referred To Contact Radiology Diagnoses Cerebral aneurysm Procedures MRI Angiogram Head wo Contrast (Generic) Dennise Jaimes APRN [facility] [place] [address] [place] [address] Referral ID Status Reason Start Date Expiration Date V isits Requested Visits Authorized [id number] Closed Specialty Service Requested 10/11/2021 04/12/2023 1 1 Encounter Details Date Type Department Care Team (Latest Contact Info) Description 11/24/2021 9:07 AM EDT - 11/24/2021 9:10 AM EDT Hospital Encounter MRI [facility] [place] [address] Dennise Jaimes APRN [facility] [place] [address] Cerebral aneurysm Discharge Disposition: Home Social History [...] y.o. : 1980 [address] [facility] [address] Female [phone] (home) Telephone Information: Claudia Belle APRN No primary care provider on file. Allergies Allergen Reactions ??? Amoxicillin Nausea And Vomiting Passed out ??? Asa Buff (Mag Carb-Al Glyc) [Aspirin, Buffered] Anxiety ??? Codeine Nausea Only ??? Nsaids (Non-Steroidal Anti-Inflammatory Drug) Palpitations Date/Time of call: November 20, 2021/11:50 AM/ PREVIOUS MRI SCAN? Yes, w/o sedation HEIGHT: WEIGHT: SCHEDULED SCAN: MRI HEAD ANGIOGRAM WO CONTRAST [[id number]] Order Questions Answers Where will study be performed? [facility] Radiology [120] Is the patient ? Unknown SUBJECTIVE: Clautrophobia CAN YOU LAY FLAT? Yes AIRWAY/BREATHING ISSUES? No DO YOU HAVE ANY INVOLUNTARY MOVEMENTS? No DO YOU HAVE ANY PAIN? No DO YOU TAKE PAIN MED ON A DAILY BASIS? No ASSESSMENT: OK for PO sedation PLAN: Valium 5-10 mg PO ordered (CHRISTINA ) You must have a corrugated fastener driver present when you check in. This patient has been informed that they require a corrugated fastener driver to drive them home after this procedure. In the absence of a corrugated fastener driver, IR will not be able to sedate for your scan. Pt verbalized understanding of these instructions during the pre-procedure education via phone. Yes Name of corrugated fastener driver: Phone number: PRIOR SCAN DATE/S SEDATION TYPE SUCCESSFUL 10/07/18 Diagnostic Cerebral Arteriogram Interventional Radiology ?? O[facility] [place] Unknown ?? 11/11/19 MRI Head wo ? 11/24/21 MRI head wo?Valium 5mg PO x 2 ? Revised 10/29/17 documented in this encounter Plan of Treatment Upcoming Encounters Date Type Department Care Team (Late st Contact Info) Description 02/26/2024 10:10 AM EDT [place] [address] Dennise Jaimes APRN [facility] [place] [address] 02/26/2024 11:00 AM EDT Office [place] [address] Thaddeus, Dr Alfaro Team None 03/05/2024 9:40 AM EDT TH Visit (TeleHealth) [place] [address] Dennise Jaimes, NAMRATA [facility] [place] [address] documented as of this encounter Procedures Procedure [...] have questions please contact the health care nurse rn that requested your imaging first. ? Narrative 11/24/2021 2:42 PM EDT EXAMINATION: MRI ANGIOGRAM HEAD WO CONTRAST (GENERIC) CLINICAL HISTORY: right opthalmic aneurysm TECHNIQUE: MRA of the head performed without contrast. 3-D MIP reconstructions were created. 3-D ohhv-ek-voscid. Axial high-resolution T1 imaging through the [place] [facility] [place] was also performed COMPARISON: Previous MRA 11/02/2020 11/11/2019 and 10/17/2018 cerebral angiogram. 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 I have measured it on transverse 3-D ttlr-uu-sgrasu data images. It measures about 4 mm [...] contrast. 3-D MIP reconstructions were created. 3-D mnec-ki-exwbrv. Axial high-resolution T1 imaging through the[facility] of [place] was also performed COMPARISON: Previous MRA 11/02/2020 11/11/2019 and 10/17/2018 cerebral angiogram. FINDINGS: Again noted is a small aneurysm at the origin of the right ophthalmicartery. I have measured it on transverse 3-D gwon-te-nvruii data images. It measuresabout 4 mm in [...] who have questions please contactthe health care nurse rn that requested your imaging first. Dennise Kartik Theodore SPINNERET PERSON IMG MRI ORDERABLES documented in this encounter [...] mg documented in this encounter Care Teams Septic Tank Servicer Relationship Specialty Start Date End Date Claudia Belle APRN [address] [place] [address] PCP - General Family Medicine 11/11/21 02/23/22 documented as of this encounter
--- OUTSIDE RECORDS SUMMARY | 2024-01-29 02:21 | XMS_ITS | Encounter Summary ---
Author Organization [facility] Address [facility] [place] [address] Care Team Providers Care Science Job Titles Name Role Phone Terri Thrasher NAMRATA Primary Care Provider + Reason for Referral * Chiropractic (Routine) - Specialty Diagnoses / Procedures Referred By Jesika maddox Referred To Contact Diagnoses Cervicogenic headache Huang Nicole MD [facility] [place] [address] Referral ID Status Reason Start Date Expiration Date V isits Requested Visits Authorized [id number] Consult, Test & Treat 10/28/2018 04/26/2019 1 1 Reason for Visit * Consultation (Routine) - Closed Specialty Diagnoses / Procedures Referred By Jesika t Referred To Contact Neurology Mil Darby MD [facility] [place] [address] [facility] Neurology [address] [place] [phone] Referral ID Status Reason Start Date Expiration Date V isits Requested Visits Authorized [id number] Closed Consult, Test & Treat 08/12/2018 08/12/2019 1 1 Encounter Details Date Type Department Care Team (Late st Contact Info) Description 10/28/2018 9:45 AM EDT Office [place] [address] [facility] [place] [address] Cervicogenic headache; Gillette palsy; Brain aneurysm Social [...] NEUROLOGY CLINIC [facility] [place] [address] 10/28/2018 Patient name: Holly Mcnally Date of : 1980 Referring provider: Mil Darby MD [facility] [place] [address] HISTORY ?? REASON FOR REFERRAL/CHIEF COMPLAINT: Headache [...] MRI / CT Scan and ultrasound at [facility] . 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 Smokes 8 cigarettes a day. No alcohol. [...] GENERAL THYROID: No results found for: TSH, U1CISZF, FREET4, TT4, THYROIDAB, THGAB FolateNo results found for: SFOLATE ESRNo results found for: SEDRATE CRPNo results found for: CRP B12No results found for: FCOFOLWC41 CKNo results found for: CK Angiotensin ConvertaseNo [...] LDLCHOL, LDLDIRECT JODIE 65No results found for: JEX12QL ANTI GM1,ANTI SGPG, MAG@RESUFAST (MAGAUTOAB,SGPG,MAGWB,GM1AB)@ HEAVY METAL [...] ANNA1, ANNA2, ANNA3, AGNA1, PCA1, PCA2, PCATYPETR, AMPHIPHYSIN,KOUM2EMK, STRIATMSCLAB, CACHABPQTYPE, CACHABNTYPE, ACHRBINDAB, NEUROKCHAB, NMDARECEPTOR, CTP76AB THROMBOSIS HOMEOCYSTEINENo results found for: HOMOCYSTEINE THROMBOSIS PANELNo results found for: ACAIGM, J7OXAQVICHE FACTOR V LEIDEN No components found for: [...] of recent MRI and othertesting done at [facility]. IMPRESSION: ?? Cervicogenic headaches and migraines [...] and obtain recent imaging and labs from [facility]. Will consider additional testing as needed based on it. Follow up in 3 months. Huang Nicole MD Department of Neurology [facility] documented in this encounter Plan of Treatment Upcoming Encounters Date Type Department Care Team (Late st Contact Info) Description 02/26/2024 10:10 AM EDT [place] [address] Dennise Jaimes APRN [facility] [place] [address] 02/26/2024 11:00 AM EDT Office [place] [address] Clinic, Dr Alfaro Team None 03/05/2024 9:40 AM EDT TH Visit (TeleHealth) [place] [address] Dennise Jaimes APRN [facility] [place] [address] Scheduled Referrals Name Type Priority Associated Diagnoses Order Schedule Referral to Chiropractic Outpatient Referral Routine Cervicogenic headache Ordered: 10/28/2018 documented as of this encounter Visit Diagnoses Diagnosis Cervicogenic headache Headache Gillette palsy Gillette's palsy Brain aneurysm Cerebral aneurysm, nonruptured documented in this encounter Care Teams Science Job Titles Relationship Specialty Start Date End Date Terri Thrasher APRN PCP - General Family Medicine 08/01/18 02/14/21 documented as of this encounter
--- OUTSIDE RECORDS SUMMARY | 2024-01-29 02:21 | XMS_ITS | Encounter Summary ---
Author Organization [facility] [place] [address] Care Team Providers Care Senior Underwriting Assistant Name Role Phone Unknown Primary Care Provider Unavailabl e Encounter Details Date Type Department Care Team (Late st Contact Info) Description 09/29/2022 Ancillary Procedure [place] [address] Baron Hobson PA [address] [place], [place] [address] Social History Tobacco Use Types Packs/Day Years [...] 02/26/2024 10:10 AM ED[place] [address] Dennise Jaimes APRN [facility] [place] [address] 02/26/2024 11:00 AM EDT Office [place] [address] Clinic, Dr Alfaro Team None 03/05/2024 9:40 AM EDT TH Visit (TeleHealth) [place] [address] Dennise Jaimes APRN [facility] [place] [address] documented as of this encounter Procedures Procedure Name Priority Date/Time Associated Diagnosis Comments FILM LIBRARY STORAGE ONLY DX KNEE Routine 09/29/2022 12:00 AM EDT documented in this encounter Results * Film Library- Storage Only DX Knee (09/29/2022 12:00 AM EDT) Narrative [facility] - 02/11/2023 5:05 AM EDT This exam is auto-finalizing. It's purpose is for storage only. Baron [facility] IMG FILM LIBRARY O RDERABLES [place], [place] documented in this encounter Visit Diagnoses Not on filedocumented in this encounter Care Teams Senior Underwriting Assistant Relationship Specialty Start Date End Date Unknown None PCP - General 02/24/22 01/31/23 documented as of this encounter
--- OUTSIDE RECORDS SUMMARY | 2024-01-29 02:21 | XMS_ITS | Encounter Summary ---
Author Organization [facility] [place] [address] Care Team Providers Care Ventilation Mechanic Name Role Phone Terri Thrasher BUSH HOG OPERATOR Primary Care Provider + Encounter Details Date Type Department Care Team (Late st Contact Info) Description 05/22/2019 [place] [address] Jenny Ferrara Social History Tobacco Use Types [...] 02/26/2024 10:10 AM EDT Appointment MRI at [place] [phone] Dennise Jaimes BUSH HOG OPERATOR [facility] [place] [address] 02/26/2024 11:00 AM EDT Office Visit Orthopaedics at [place] [phone] Clinic, Dr Alfaro Team None 03/05/2024 9:40 AM EDT TH Visit (TeleHealth) Neurosurgery at [place] [phone] Dennise Jaimes BUSH HOG OPERATOR [facility] [place] [address] documented as of this encounter Visit Diagnoses Not on filedocumented in this encounter Care Teams Ventilation Mechanic Relationship Specialty Start Date End Date Terri Thrasher APRN PCP - General Family Medicine 08/01/18 02/14/21 documented as of this encounter
--- OUTSIDE RECORDS SUMMARY | 2024-01-29 02:21 | XMS_ITS | Encounter Summary ---
Author Organization [facility] [place] [address] Care Team Providers Care Ocean Clam Boat Captain Name Role Phone Terri Thrasher NAMRATA Primary Care Provider + Reason for Referral * Consultation (Routine) - Closed Specialty Diagnoses / Procedures Referred By Contac t Referred To Contact Thoracic Surgery Diagnoses Nicotine dependence, cigarettes, uncomplicated Tobacco abuse counseling Eugenio Hernandez MD [facility] [place] [address] Dot Garcia APRN [facility] CARDIOTHORACIC [place] [address] Referral ID Status Reason Start Date Expiration Date V isits Requested Visits Authorized [id number] Closed Consult, Test & Treat 09/03/2018 09/03/2019 1 1 Reason for Visit * Reason Comments Advice Only Right infundibulum v s 4mm outpouching on CTA * Consultation (Routine) - Closed Specialty Diagnoses / Procedures Referred By Contac t Referred To Contact Neurosurgery Diagnoses Right infundibulum vs 4mm outpouching on CTA without corresponding symptoms. Mil Darby MD [facility] DR EMERGENC[place] [address] Eugenio Hernandez MD [facility] [place]NOSTIC [place] [address] Referral ID Status Reason Start Date Expiration Date V isits Requested Visits Authorized [id number] Closed Consult, Test & Treat 08/12/2018 08/12/2019 1 1 Encounter Details Date Type Department Care Team (Late st Contact Info) Description 09/03/2018 1:00 PM EDT Office Visit Neurosurgery at [facility] [place] [address] Eugenio Hernandez MD [facility] DR DIAGNOSTIC [place] [address] Nicotine dependence, cigarettes, uncomplicated; Tobacco abuse counseling; [...] Nicotine Replacement Therapy , September 02, 2012: https://www.federalregister.gov/articles//2013-27316/modifications-to- avpesylx-zk-mnguilhu-qksdmlzfifd-znbzljv-pbkiagcm-goj-cxha-zsl-amzawax-whflr-tws documented in this encounter Progress Notes * [...] 02/26/2024 10:10 AM [place] [address] Dennise Jaimes APRN [facility] [place] [place] [address] 02/26/2024 11:00 AM EDT Office [place] [address] Clinic, Dr Alfaro Team None 03/05/2024 9:40 AM EDT TH Visit (TeleHealth) [place] [address] Dennise Jaimes APRN [facility] [place] [place] [address] Scheduled Referrals Name Type Priority Associated Diagnoses Orde r Schedule Referral to Smoking Cessation Program Outpatient Referral Routine Nicotine dependence, cigarettes, uncomplicated Tobacco abuse counseling Ordered: 09/03/2018 documented as of this encounter Visit Diagnoses Diagnosis Nicotine dependence, cigarettes, uncomplicated Tobacco abuse counseling Counseling on substance use and abuse Cerebral aneurysm without rupture Cerebral aneurysm, nonruptured documented in this encounter Care Teams Ocean Clam Boat Captain Relationship Specialty Start Date End Date Terri Thrasher APRN PCP - General Family Medicine 08/01/18 02/14/21 documented as of this encounter
--- OUTSIDE RECORDS SUMMARY | 2024-01-29 02:21 | XMS_ITS | Encounter Summary ---
Author Organization [facility] [place] [address] Care Team Providers Care Business Functional Analyst Name Role Phone UliLashawn NAMRATA Primary Care Provider [phone] Encounter Details Date Type Department Care Team (Late st Contact Info) Description 04/18/2021 Telephone Neurosurgery at [facility] [place] [address] Adelso Maravilla Social History Tobacco Use Types [...] 04/18/2021 9:30 AM EST Holly Contreras Uli [id number] 1980 Caller: Holly Reason for call: c/o [...] Caller: Patient Best number to reach caller: [phone] Reason for call: Patient calling to advise she has pain in her right yazdanism (location of aneurysm) that goes down into her jaw and neck. This is the 2nd or 3rd time this has happened. Recent Surgery?: No documented in this encounter Plan of Treatment Upcoming Encounters Date Type Department Care Team (Late st Contact Info) Description 02/26/2024 10:10 AM [place] [address] Dennise Jaimes TECHNICAL ASSISTANCE CONSULTANT [facility] [place] [address] 02/26/2024 11:00 AM EDT Office Visit Orthopaedics at [place] [phone] Clinic, Dr Alfaro Team None 03/05/2024 9:40 AM EDT TH Visit (TeleHealth) [place] [address] Dennise Jaimes [facility] [address] documented as of this encounter Visit Diagnoses Not on filedocumented in this encounter Care Teams Business Functional Analyst Relationship Specialty Start Date End Date Lashawn Mcnally APRN [address] [place] [address] PCP - General Family Medicine 02/15/21 11/10/21 documented as of this encounter
--- OUTSIDE RECORDS SUMMARY | 2024-01-29 02:21 | XMS_ITS | Encounter Summary ---
Author Organization [facility] [place] [address] Care Team Providers Care Fruit Farmworker Name Role Phone Terri Thrasher NAMRATA Primary Care Provider + Encounter Details Date Type Department Care Team (Late st Contact Info) Description 09/24/2018 [place] [address] Candace Hollingsworth CAUSTIC PURIFICATION OPERATOR [facility] [place] [address] Social History Tobacco Use Types Packs/Day Years [...] EDT Telephone note: Called by Nguyen Jones DRIVING SCHOOL INSTRUCTOR regarding patient Holly Mcnally. Patient had presented to [facility] with c/o headache with visual disturbance (black [...] Hold anticoagulation/antiplatelets therapys (not currently on any) DRIVING SCHOOL INSTRUCTOR Robert was agreeable with this plan. We are available for any further questions or concerns. Candace Hollingsworth APRN documented in this encounter Plan of Treatment Upcoming Encounters Date Type Department Care Team (Late st Contact Info) Description 02/26/2024 10:10 [place] [address] Dennise Jaimes APRN [facility] [place] [place] [address] 02/26/2024 11:00 AM EDT Office [place] [phone] Clinic, Dr Alfaro Team None 03/05/2024 9:40 AM EDT TH Visit (TeleHealth) [place] [address] Dennise Jaimes APRN [facility] [place] [place] [address] documented as of this encounter Visit Diagnoses Not on filedocumented in this encounter Care Teams Fruit Farmworker Relationship Specialty Start Date End Date Terri Thrasher APRN PCP - General Family Medicine 08/01/18 02/14/21 documented as of this encounter
--- OUTSIDE RECORDS SUMMARY | 2024-01-29 02:21 | XMS_ITS | Encounter Summary ---
Author Organization [facility] [place] [address] Care Team Providers Care Library Circulation Department Chief Name Role Phone Lashawn Mcnally NAMRATA Primary Care Provider [phone] Encounter Details Date Type Department Care Team (Late st Contact Info) Description 10/10/2021 Telephone Neurosurgery at [facility] [place] [address] Delma Jaimes Social History Tobacco Use Types [...] caller: Any Best number to reach caller: [phone] Reason for call: Pt calling to schedule [...] 02/26/2024 10:10 AM [place] [address] Dennise Jaimes CHUTE TENDER [facility] [place] [address] 02/26/2024 11:00 AM EDT Office [place] [address] Clinic, Dr Alfaro Team None 03/05/2024 9:40 AM EDT TH Visit (TeleHealth) [place] [address] Dennise Jaimes CHUTE TENDER [facility] [place] [address] documented as of this encounter Visit Diagnoses Not on filedocumented in this encounter Care Teams Library Circulation Department Chief Relationship Specialty Start Date End Date Lashawn Mcnally APRN [address] [place] [address] PCP - General Family Medicine 02/15/21 11/10/21 documented as of this encounter
--- OUTSIDE RECORDS SUMMARY | 2024-01-29 02:21 | XMS_ITS | Encounter Summary ---
[place] [address] Care Team Providers Care Elevator Attendant Name Role Phone Unknown Primary Care Provider Unavailabl e Reason for Referral * Diagnostic Test (Routine) - Closed Specialty Diagnoses / Procedures Referred By Contac t Referred To Contact Radiology Diagnoses Aneurysm of ophthalmic artery Procedures MRI Angiogram Head wo Contrast (Generic) Dennise Jaimes APRN [facility] [place] [address] [place] [address] Referral ID Status Reason Start Date Expiration Date V isits Requested Visits Authorized [id number] Closed Specialty Service Requested 11/24/2021 05/26/2023 1 1 Reason for Visit * Diagnostic Test (Routine) - Closed Specialty Diagnoses / Procedures Referred By Contac t Referred To Contact Radiology Diagnoses Aneurysm of ophthalmic artery Procedures MRI Angiogram Head wo Contrast (Generic) Dennise Jaimes APRN [facility] [place] [address] [place] [address] Referral ID Status Reason Start Date Expiration Date V isits Requested Visits Authorized [id number] Closed Specialty Service Requested 11/24/2021 05/26/2023 1 1 Encounter Details Date Type Department Care Team (Latest Contact Info) Description 12/21/2022 11:10 AM EDT - 12/21/2022 11:59 PM EDT [place] [address] Dennise Jaimes APRN [facility] [address] [place] [id number] Aneurysm of ophthalmic artery Discharge Disposition: Home [...] 02/26/2024 10:10 [place] [address] Dennise Jaimes GAS REGULATOR REPAIRER [facility] [place] [address] 02/26/2024 11:00 AM EDT [place] [address] Clinic, Dr Alfaro Team None 03/05/2024 9:40 AM EDT TH Visit (TeleHealth) [place] [address] Dennise Jaimes, GAS REGULATOR REPAIRER [facility] [place] [address] documented as of this encounter Procedures Procedure [...] have questions please contact the health healthcare advisory services manager that requested your imaging first. ? Narrative [...] who have questions please contactthe health healthcare advisory services manager that requested your imaging first. Dennise Jaimes APRN IMG MRI ORDERABLES documented in this encounter Visit Diagnoses Diagnosis Aneurysm of ophthalmic artery Cerebral aneurysm, nonruptured documented in this encounter Care Teams Elevator Attendant Relationship Specialty Start Date End Date Unknown None PCP - General 02/24/22 01/31/23 documented as of this encounter
--- OUTSIDE RECORDS SUMMARY | 2024-01-29 02:21 | XMS_ITS | Encounter Summary ---
Author Organization [facility] [address] Care Team Providers Care Php Magento Developer Name Role Phone Lashawn Mcnally APRN Primary Care Provider [phone] Reason for Visit * Consultation (Routine) - Closed Specialty Diagnoses / Procedures Referred By Jesika maddox Referred To Contact Endocrinology Diagnoses Nontoxic single thyroid nodule BILAT THYROID NODULES Lashawn Mcnally APRN [address] [place] [address] [facility] [address] [place] [address] Referral ID Status Reason Start Date Expiration Date V isits Requested Visits Authorized [id number] Closed Consult, Test & Treat Connection Center PCP Updated and/or Approved 02/07/2021 02/07/2022 12 12 Encounter Details Date Type Department Care Team (Late st Contact Info) Description 09/05/2021 11:00 AM EDT Office Visit [place] [address] Hector Navas, [facility] [place] [address] Multinodular goiter Social History Tobacco Use Types [...] these were done just last month at [facility]. Review of Systems: Review of Systems Constitutional: [...] IR Arteriogram Cerebral 10/07/2018 Eugenio Hernandez MD [facility] RAD Social History Socioeconomic History [...] We will try to obtain these from [facility]. Bedside ultrasound today reveals bilateral [...] included. ENDOCRINOLOGY THYROID ULTRASOUND REPORT Patient:Holly Mcnally, [id number] Date of exam: 09/06/2021 Indication: thyroid nodule Comparison: 01/31/21 Performed by: Hector Navas DO, Real time images of the thyroid gland were obtained using a [employer] US machine. All measurements are given as [...] year. Discussed with attending, Dr. Sharp. * Yokatsa Sharp MD - 09/05/2021 11:00 AM EDT [...] 02/26/2024 10:10 AM EDT [place] [address] Dennise Jaimes, HIGH LIFT MULE OPERATOR [facility] [place] [place] [address] 02/26/2024 11:00 AM EDT Office Visit [place] [address] Clinic, Dr Alfaro Team None 03/05/2024 9:40 AM EDT TH Visit (TeleHealth) [place] [address] Dennise Jaimes, HIGH LIFT MULE OPERATOR [facility] [place] [address] documented as of this encounter Visit Diagnoses Diagnosis Multinodular goiter Nontoxic multinodular goiter documented in this encounter Care Teams Php Magento Developer Relationship Specialty Start Date End Date Lashawn Mcnally APRN [address] [place] [address] PCP - General Family Medicine 02/15/21 11/10/21 documented as of this encounter
--- OUTSIDE RECORDS SUMMARY | 2024-01-29 02:21 | XMS_ITS | Encounter Summary ---
Author Organization [facility] [place] [address] Care Team Providers Care Donor Relations Officer Name Role Phone Terri Thrasher NAMRATA Primary Care Provider + Encounter Details Date Type Department Care Team (Late st Contact Info) Description 09/24/2018 12:05 AM EDT Ancillary Procedure [place] [address] Huang Nicole MD [facility] [place] [address] Social History Tobacco Use Types Packs/Day Years [...] 02/26/2024 10:10 [place] [address] Dennise Jaimes APRN [facility] [place] [address] 02/26/2024 11:00 AM EDT [place] [address] Clinic, Dr Alfaro Team None 03/05/2024 9:40 AM EDT TH Visit (TeleHealth) [place] [address] Dennise Jaimes APRN [facility] [place] [address] documented as of this encounter Procedures Procedure Name Priority Date/Time Associated Diagnosis Comments FILM LIBRARY STORAGE ONLY MR HEAD Routine 09/24/2018 12:05 AM EDT documented in this encounter Results * Film Library- Storage Only MR Head (09/24/2018 12:05 AM EDT) Narrative [facility] - 11/07/2018 10:29 AM EDT This exam is auto-finalizing. It's purpose is for storage only. Huang Nicole MD IMG FILM LIBRARY ORD ERABLES Performing Organization Address City/State/[facility] Co de Phone Number [place], [place] documented in this encounter Visit Diagnoses Not on filedocumented in this encounter Care Teams Donor Relations Officer Relationship Specialty Start Date End Date Terri Thrasher APRN PCP - General Family Medicine 08/01/18 02/14/21 documented as of this encounter
--- OUTSIDE RECORDS SUMMARY | 2024-01-29 02:21 | XMS_ITS | Encounter Summary ---
Author Organization [facility] [place] [address] Care Team Providers Care Hat Designer Name Role Phone Terri Thrasher NAMRATA Primary Care Provider + Encounter Details Date Type Department Care Team (Late st Contact Info) Description 01/22/2021 6:45 PM EDT Ancillary Procedure [place] [address] Timmy Altman MD [facility] [place] [address] Social History Tobacco Use Types Packs/Day Years [...] 02/26/2024 10:10 AM [place] [address] Dennise Jaimes APRN [facility] [place] [address] 02/26/2024 11:00 AM EDT Office [place] [address] Clinic, Dr Alfaro Team None 03/05/2024 9:40 AM EDT TH Visit (TeleHealth) [place] [address] Dennise Jaimes APRN [facility] [place] [place] [address] documented as of this encounter Procedures Procedure Name Priority Date/Time Associated Diagnosis Comments FILM LIBRARY STORAGE ONLY CT HEAD AND SPINE Routine 01/22/2021 6:43 PM EDT documented in this encounter Results * Film Library- Storage Only CT Head And Spine (01/22/2021 6:43 PM EDT) Narrative [facility] - 01/22/2021 6:43 PM EDT This exam is auto-finalizing. It's purpose is for storage only. Timmy Altman MD G FILM LIBRARY ORD ERABLES Performing Organization Address City/State/[facility] Co de Phone Number [place], [place] documented in this encounter Visit Diagnoses Not on filedocumented in this encounter Care Teams Hat Designer Relationship Specialty Start Date End Date Terri Thrasher APRN PCP - General Family Medicine 08/01/18 02/14/21 documented as of this encounter
--- OUTSIDE RECORDS SUMMARY | 2024-01-29 02:21 | XMS_ITS | Encounter Summary ---
Author Organization [facility] [place] [address] Care Team Providers Care Wildlife Refuge Specialist Name Role Phone Unknown Primary Care Provider Unavailabl e Encounter Details Date Type Department Care Team (Late st Contact Info) Description 06/29/2022 Ancillary Procedure [place] [address] Baron Hobson PA [address] [place], [place] [address] Social History Tobacco Use Types Packs/Day Years [...] 02/26/2024 10:10 AM [place] [address] Dennise Jaimes APRN [facility] [place] [address] 02/26/2024 11:00 AM EDT Office [place] [address] Clinic, Dr Alfaro Team None 03/05/2024 9:40 AM EDT TH Visit (TeleHealth) [place] [address] Dennise Jaimes APRN [facility] [place] [address] documented as of this encounter Procedures Procedure Name Priority Date/Time Associated Diagnosis Comments FILM LIBRARY STORAGE ONLY DX KNEE Routine 06/29/2022 12:00 AM EST documented in this encounter Results * Film Library- Storage Only DX Knee (06/29/2022 12:00 AM EST) Narrative [facility] - 02/11/2023 5:05 AM EDT This exam is auto-finalizing. It's purpose is for storage only. Baron STANFORD IMG FILM LIBRARY O RDERABLES [place], [place] documented in this encounter Visit Diagnoses Not on filedocumented in this encounter Care Teams Wildlife Refuge Specialist Relationship Specialty Start Date End Date Unknown None PCP - General 02/24/22 01/31/23 documented as of this encounter
--- OUTSIDE RECORDS SUMMARY | 2024-01-29 02:21 | XMS_ITS | Encounter Summary ---
[place] [address] Care Team Providers Care Service Restorer Emergency Name Role Phone Lashawn Mcnally APRN Primary Care Provider Reason for Referral * Diagnostic Test (Routine) - Closed Specialty Diagnoses / Procedures Referred By Jesika t Referred To Contact Radiology Diagnoses Cerebral aneurysm Procedures MRI Angiogram Head wo Contrast (Generic) Dennise Jaimes APRN [facility] [place] [address] [place] [address] Referral ID Status Reason Start Date Expiration Date V isits Requested Visits Authorized [id number] Closed Specialty Service Requested 10/11/2021 04/12/2023 1 1 Encounter Details Date Type Department Care Team (Late Contact Info) Description 10/10/2021 [place] [address] Vanessa Frost RN Anterior cerebral [...] 02/26/2024 10:10 AM [place] [address] Dennise Jaimes, EMBOSSING MACHINE TENDER [facility] [place] [address] 02/26/2024 11:00 AM EDT Office [place] [address] Clinic, Dr Alfaro Team None 03/05/2024 9:40 AM EDT TH Visit (TeleHealth) [place] [address] Dennise Jaimes, [facility] [place] [address] documented as of this encounter [...] have questions please contact the health career manager that requested your imaging first. ? Electronically signed by: Nazario Cedillo MD, [facility] ([phone]), at 11/24/2021 2:42 PM Narrative 11/24/2021 2:42 PM EDT EXAMINATION: MRI ANGIOGRAM HEAD WO CONTRAST (GENERIC) CLINICAL HISTORY: right opthalmic aneurysm TECHNIQUE: MRA of the head performed without contrast. 3-D MIP reconstructions were created. 3-D keix-df-wfgpcd. Axial high-resolution T1 imaging through the ak chin of Garcia was also performed COMPARISON: Previous MRA 11/02/2020 11/11/2019 and 10/17/2018 cerebral angiogram. 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 I have measured it on transverse 3-D smrs-wx-lfuhyo data images. It measures about 4 mm [...] contrast. 3-D MIP reconstructions were created. 3-D tnou-tr-svkvpj. Axial high-resolution T1 imaging through thecircle of Garcia was also performed COMPARISON: Previous MRA 11/02/2020 11/11/2019 and 10/17/2018 cerebral angiogram. FINDINGS: Again noted is a small aneurysm at the origin of the right ophthalmicartery. I have measured it on transverse 3-D zuif-vy-hdgoup data images. It measuresabout 4 mm in [...] who have questions please contactthe health career manager that requested your imaging first. Electronically signed by: Nazario Cedillo MD, [facility]([phone]), at 11/24/2021 2:42 PM Dennise Jaimes EMBOSSING MACHINE TENDER IMG MRI ORDERABLES documented in this encounter Visit Diagnoses Diagnosis Anterior cerebral artery aneurysm Cerebral aneurysm, nonruptured Cerebral aneurysm Cerebral aneurysm, nonruptured Cerebral aneurysm Cerebral aneurysm, nonruptured documented in this encounter Care Teams Service Restorer Emergency Relationship Specialty Start Date End Date Lashawn Mcnally APRN [address] [place] [address] PCP - General Family Medicine 02/15/21 11/10/21 documented as of this encounter
--- OUTSIDE RECORDS SUMMARY | 2024-01-29 02:21 | XMS_ITS | Encounter Summary ---
[place] [address] Care Team Providers Care Picture Frame Maker Name Role Phone Unknown Primary Care Provider Unavailabl e Reason for Referral * Diagnostic Test (Routine) - Authorized Specialty Diagnoses / Procedures Referred By Jesika maddox Referred To Contact Radiology Diagnoses Aneurysm of ophthalmic artery Procedures MRI Angiogram Head wo Contrast (Generic) Dennise Jaimes APRN [facility] [place] [address] [place] [address] Referral ID Status Reason Start Date Expiration Date Visits Requested Visits Authorized [id number] Authorized Specialty Service Requested 12/21/2022 06/23/2024 1 1 Encounter Details Date Type Department Care Team (Late st Contact Info) Description 12/21/2022 1:00 PM EDT [place] [address] Dennise Jaimes APRN [facility] [place] [address] Aneurysm of ophthalmic artery Social [...] this encounter Progress Notes * Dennise Jaimes, PLASTIC PROCESS TECHNICIAN - 12/21/2022 1:00 PM EDT ASSESSMENT/PLAN: Aneurysm [...] repeat your MRA in 1 year at [facility]. Please feel free to call in [...] repeat your MRA in 1 year at [facility]. Please feel free to call in [...] 02/26/2024 10:10 AM EDT Appointment MRI at [place] [phone] Dennise Jaimes APRN [facility] [place] [address] 02/26/2024 11:00 AM EDT Office Visit Orthopaedics at [place] [phone] Clinic, Dr Alfaro Team None 03/05/2024 9:40 AM EDT TH Visit (TeleHealth) Neurosurgery at [place] [address] Dennise Jaimes APRN [facility] [place] [address] Scheduled Orders Name Type Priority Associated Diagnoses Orde r Schedule MRI Angiogram Head wo Contrast (Generic) Imaging Routine Aneurysm of ophthalmic artery Expected: 12/22/2023, Expires: 06/23/2024 documented as of this encounter Visit Diagnoses Diagnosis Aneurysm of ophthalmic artery Cerebral aneurysm, nonruptured documented in this encounter Care Teams Picture Frame Maker Relationship Specialty Start Date End Date Unknown None PCP - General 02/24/22 01/31/23 documented as of this encounter
--- OUTSIDE RECORDS SUMMARY | 2024-01-29 02:21 | XMS_ITS | Encounter Summary ---
Author Organization [facility] [place] [address] Care Team Providers Care Animal Control Officer Name Role Phone Unknown Primary Care Provider [...] 02/26/2024 10:10 AM EDT [place] [address] Dennise Jaimes APRN [facility] [place] [address] 02/26/2024 11:00 AM EDT Office Visit [place] [address] Clinic, Dr Alfaro Team None 03/05/2024 9:40 AM EDT TH Visit (TeleHealth) [place] [address] Dennise Jaimes APRN [facility] [place] [address] documented as of this encounter Visit Diagnoses Not on filedocumented in this encounter Care Teams Animal Control Officer Relationship Specialty Start Date End Date Unknown None PCP - General 02/24/22 01/31/23 documented as of this encounter
--- OUTSIDE RECORDS SUMMARY | 2024-01-29 02:21 | XMS_ITS | Encounter Summary ---
[place] [address] Care Team Providers Care Strap Cutter Name Role Phone Lashawn Mcnally NAMRATA Primary Care Provider [phone] Encounter Details Date Type Department Care Team (Late st Contact Info) Description 01/23/2021 Telephone [place] [address] Susan Lees Social History Tobacco [...] Caller: Patient Best number to reach caller: [phone] Reason for call: On and off pain in right confucianist and neck, pressure in head, right side of head is hot/ not normal Seen yesterday in [facility] ED for similar sx- see Dr. Altman's note Recent Surgery?: no documented in this encounter Plan of Treatment Upcoming Encounters Date Type Department Care Team (Late st Contact Info) Description 02/26/2024 10:10 AM EDT [place] [address] Dennise Jaimes, [facility] [place] [address] 02/26/2024 11:00 AM EDT Office [place] [address] Clinic, Dr Alfaro Team None 03/05/2024 9:40 AM EDT TH Visit (TeleHealth) [place] [address] Dennise Jaimes, [facility] [place] [address] documented as of this encounter Visit Diagnoses Not on filedocumented in this encounter Care Teams Strap Cutter Relationship Specialty Start Date End Date Lashawn Mcnally APRN [address] [place] [address] PCP - General Family Medicine 02/15/21 11/10/21 documented as of this encounter
--- OUTSIDE RECORDS SUMMARY | 2024-01-29 02:21 | XMS_ITS | Encounter Summary ---
Author Organization [facility] [place] [address] Care Team Providers Care Lime Sludge Kiln Operator Name Role Phone Terri Thrsaher SUPERVISOR POST WAVE Primary Care Provider + Reason for Visit * Reason Comments Establish Care NXR Shena Heller Pa in second Opinion * Consultation (Routine) - Closed Specialty Diagnoses / Procedures Referred By Jesika maddox Referred To Contact Orthopaedics Diagnoses LONG STANDING HX OF LEF TSIDED WRIST PAIN, DX WITH DE QUERVAIN'S TENSYNOVITIS Terri Thrasher, SUPERVISOR POST WAVE [address] [place] [address] [facility] [address] [place] [phone] Referral ID Status Reason Start Date Expiration Date V isits Requested Visits Authorized [id number] Closed Consult, Test & Treat Connection Center 08/01/2018 08/01/2019 1 1 Encounter Details Date Type Department Care Team (Late st Contact Info) Description 09/16/2018 10:20 AM EDT Office Visit [place] [address] Chronic pain of left ankle [...] 1/2 ppd No alcohol use Works in [employer] Lives in [place], [place]. PMH: Patient Active Problem List Diagnosis [...] 02/26/2024 10:10 AM EDT [place]ment [place] [address] Dennise Jaimes APRN [facility] [place] [address] 02/26/2024 11:00 AM EDT Office Visit [place]ics [place] [address] Clinic, Dr Alfaro Team None 03/05/2024 9:40 AM EDT TH Visit (TeleHealth) [place] [address] Dennise Jaimes, NAMRATA [facility] [place] [address] documented as of this encounter Visit Diagnoses Diagnosis Chronic pain of left ankle documented in this encounter Care Teams Lime Sludge Kiln Operator Relationship Specialty Start Date End Date Terri Thrasher APRN PCP - General Family Medicine 08/01/18 02/14/21 documented as of this encounter
--- OUTSIDE RECORDS SUMMARY | 2024-01-29 02:21 | XMS_ITS | Encounter Summary ---
[place] [address] Care Team Providers Care Manager Environmental Name Role Phone Claudia vance Nery OTT Primary Care Provider [phone] Reason for Visit * Diagnostic Test (Routine) - Closed Specialty Diagnoses / Procedures Referred By Jesika maddox Referred To Contact Radiology Diagnoses Cerebral aneurysm Procedures MRI Angiogram Head wo Contrast (Generic) Dennise Jaimes APRN [facility] [place] [address] [place] [address] Referral ID Status Reason Start Date Expiration Date V isits Requested Visits Authorized [id number] Closed Specialty Service Requested 10/11/2021 04/12/2023 1 1 Encounter Details Date Type Department Care Team (Latest Contact Info) Description 11/24/2021 9:11 AM EDT - 11/24/2021 11:59 PM EDT [place] [address] Dennise Jaimes APRN [facility] [place] [address] Discharge Disposition: Home Social History Tobacco Use [...] 02/26/2024 10:10 AM [place] [address] [address] [facility] [place] [address] 02/26/2024 11:00 AM EDT Office [place] [address] Clinic, Dr Alfaro Team None 03/05/2024 9:40 AM EDT TH Visit (TeleHealth) [place] [address] [address]ennise Ja[address] [facility] [place] [address] documented as of this encounter Procedures Procedure [...] who have questions please contact the health coronary care unit nurse that requested your imaging first. ? Electronically signed by: Nazario Cedillo MD, [facility] ([phone]), at 11/24/2021 2:42 PM Narrative 11/24/2021 2:42 PM EDT EXAMINATION: MRI ANGIOGRAM HEAD WO CONTRAST (GENERIC) CLINICAL HISTORY: right opthalmic aneurysm TECHNIQUE: MRA of the head performed without contrast. 3-D MIP reconstructions were created. 3-D tmmb-rm-knhdgj. Axial high-resolution T1 imaging through the [place] of Garcia was also performed COMPARISON: Previous MRA 11/02/2020 11/11/2019 and 10/17/2018 cerebral angiogram. 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 I have measured it on transverse 3-D qgla-kp-whjyik data images. It measures about 4 mm [...] contrast. 3-D MIP reconstructions were created. 3-D wvxf-kp-cqsbil. Axial high-resolution T1 imaging through thecircle of Garcia was also performed COMPARISON: Previous MRA 11/02/2020 11/11/2019 and 10/17/2018 cerebral angiogram. FINDINGS: Again noted is a small aneurysm at the origin of the right ophthalmicartery. I have measured it on transverse 3-D thil-nb-mgxgae data images. It measuresabout 4 mm in [...] patients who have questions please contactthe health coronary care unit nurse that requested your imaging first. Dennise Jaimes APRN IMG MRI ORDERABLES documented in this encounter Visit Diagnoses Not on filedocumented in this encounter Care Teams Manager Environmental Relationship Specialty Start Date End Date Claudia Belle APRN [address] [place], [place] [address] [place] [address] PCP - General Family Medicine 11/11/21 02/23/22 documented as of this encounter
--- OUTSIDE RECORDS SUMMARY | 2024-01-29 02:21 | XMS_ITS | Encounter Summary ---
Author Organization [facility] [place] [address] Care Team Providers Care Dial Equipment Engineer Name Role Phone Terri Thrasher APRN Primary Care Provider + Encounter Details Date Type Department Care Team (Late st Contact Info) Description 09/04/2018 [place] [address] Veronica Michael Social History Tobacco Use Types [...] to be called into [facility] in [place]. Can you put in order too for angio? Veronica Soria * Telephone Encounter - Veronica Michael - 09/04/2018 9:13 AM EDT Spoke to pt she would like to proceed with angio and embo, needs plavix called into [facility] as well requesting order from Dr. Hernandez for 5/6. * Telephone Encounter - Jesi Lunsford - 09/04/2018 9:02 AM EDT [facility] [place] * Telephone Encounter - Veronica Michael [...] 02/26/2024 10:10 [place] [address] Dennise Jaimes CARBIDE TOOL MAKER [facility] [address] [place] [id number] 02/26/2024 11:00 AM EDT Office [place] [address] Clinic, Dr Alfaro Team None 03/05/2024 9:40 AM EDT TH Visit (TeleHealth) [place] [address] Dennise Jaimes CARBIDE TOOL MAKER [facility] [place] [address] documented as of this encounter Visit Diagnoses Not on filedocumented in this encounter Care Teams Dial Equipment Engineer Relationship Specialty Start Date End Date Terri Thrasher APRN PCP - General Family Medicine 08/01/18 02/14/21 documented as of this encounter
--- OUTSIDE RECORDS SUMMARY | 2024-01-29 02:21 | XMS_ITS | Encounter Summary ---
Author Organization [facility] [place] [address] Care Team Providers Care Farm Equipment Engineer Name Role Phone Terri Thrasher NAMRATA Primary Care Provider + Reason for Visit * Reason Comments Nicotine Dependence Encounter Details Date Type Department Care Team (Late st Contact Info) Description 10/10/2018 Telephone [place] [address] Dot Garcia APRN [facility] [address] C[place] [address] Nicotine Dependence Social History Tobacco Use Types [...] 02/26/2024 10:10 AM [place] [phone] Dennise Jaimes HARDWARE MANAGER [facility] [place] [address] 02/26/2024 11:00 AM EDT Office [place] [phone] Clinic, Dr Alfaro Team None 03/05/2024 9:40 AM EDT TH Visit (TeleHealth) [place] [phone] Dennise Jaimes HARDWARE MANAGER [facility] [place] [address] documented as of this encounter Visit Diagnoses Not on filedocumented in this encounter Care Teams Farm Equipment Engineer Relationship Specialty Start Date End Date Terri Thrasher APRN PCP - General Family Medicine 08/01/18 02/14/21 documented as of this encounter
--- OUTSIDE RECORDS SUMMARY | 2024-01-29 02:21 | XMS_ITS | Encounter Summary ---
Author Organization [facility] [place] [address] Care Team Providers Care Superintendent Maintenance Name Role Phone Terri Thrasher NAMRATA Primary Care Provider + Encounter Details Date Type Department Care Team (Late st Contact Info) Description 10/07/2018 Orders [place] [address] Eugenio Hernandez MD [facility] [place] [address] Cerebral aneurysm without rupture Social [...] 10:10 AM ED[place] [address] Dennise Jaimes APRN [facility] [place] [address] 02/26/2024 11:00 AM EDT Office [place] [address] Thaddeus, Dr Alfaro Team None 03/05/2024 9:40 AM EDT TH Visit (TeleHealth) [place] [address] Dennise Jaimes APRN [facility] [place] [address] documented as of this encounter Visit Diagnoses Diagnosis Cerebral aneurysm without rupture Cerebral aneurysm, nonruptured documented in this encounter Care Teams Superintendent Maintenance Relationship Specialty Start Date End Date Terri Thrasher, NAMRATA PCP - General Family Medicine 08/01/18 02/14/21 documented as of this encounter
--- OUTSIDE RECORDS SUMMARY | 2024-01-29 02:21 | XMS_ITS | Encounter Summary ---
Author Organization [facility] [place] [address] Care Team Providers Care Contract Negotiator Name Role Phone Claudia vance NAMRATA Primary Care Provider [phone] Encounter Details Date Type Department Care Team (Late st Contact Info) Description 11/24/2021 [place] [address] Dennise Jaimes APRN [facility] [place] [address] Social History Tobacco Use Types [...] 02/26/2024 10:10 [place] [address] Dennise Jaimes APRN [facility] [place] [address] 02/26/2024 11:00 AM EDT Office [place] [phone] Clinic, Dr Alfaro Team None 03/05/2024 9:40 AM EDT TH Visit (TeleHealth) [place] [address] Dennise Jaimes, NEWS CORRESPONDENT [facility] [place] [address] documented as of this encounter Visit Diagnoses Not on filedocumented in this encounter Care Teams Contract Negotiator Relationship Specialty Start Date End Date Claudia Belle APRN [address] [place] [address] [address] [place] [address] PCP - General Family Medicine 11/11/21 02/23/22 documented as of this encounter
--- OUTSIDE RECORDS SUMMARY | 2024-01-29 02:21 | XMS_ITS | Encounter Summary ---
Author Organization [facility] [place] [address] Care Team Providers Care Chief Underwriter Name Role Phone Terri Thrasher NAMRATA Primary Care Provider + Encounter Details Date Type Department Care Team (Late st Contact Info) Description 10/28/2018 11:30 AM EDT Office Visit [place] [address] Romi Thompson Cigarette nicotine dependence without complication [...] - Tobacco Cessation Consultation JARETH Aguero (Kate) [place], [place] [address] FAX: HPI: Holly Mcnally is a 38 y.o. female who is being seen today for tobacco cessation. Type of tobacco used: () Smokeless tobacco () e-cigarette (X)Cigarettes Brand currently smoking: [place] Current amount: 10 ppd Age initiated: 17 [...] Thompson 10/28/18 Thoracic Surgery - Tobacco Cessation [facility] documented in this encounter Plan of Treatment Upcoming Encounters Date Type Department Care Team (Late st Contact Info) Description 02/26/2024 10:10 AM EDT [place] [address] Dennise Jaimes APRN [facility] [address] 02/26/2024 11:00 AM EDT Office Visit Orthopaedics at [place] [phone] Clinic, Dr Alfaro Team None 03/05/2024 9:40 AM EDT TH Visit (TeleHealth) [place] [address] Dennise Jaimes, NAMRATA [facility] [place] [address] documented as of this encounter Visit Diagnoses Diagnosis Cigarette nicotine dependence without complication Tobacco use disorder documented in this encounter Care Teams Chief Underwriter Relationship Specialty Start Date End Date Terri Thrasher APRN PCP - General Family Medicine 08/01/18 02/14/21 documented as of this encounter
--- OUTSIDE RECORDS SUMMARY | 2024-01-29 02:22 | XMS_ITS | Encounter Summary ---
Author Organization [facility] [place] [address] Care Team Providers Care Raker Buffing Wheel Name Role Phone Terri Thrasher APRN Primary Care Provider + Encounter Details Date Type Department Care Team (Late st Contact Info) Description 08/06/2018 Ancillary Procedure [place] [address] Terri Thrasher, NAMRATA [address] [place] [address] Social History Tobacco Use Types Packs/Day Years [...] 02/26/2024 10:10 [place] [address] Dennise Jaimes [facility] [place] [address] 02/26/2024 11:00 AM EDT [place] [address] Clinic, Dr Alfaro Team None 03/05/2024 9:40 AM EDT TH Visit (TeleHealth) [place] [address] Dennise Jaimes APRN [facility] [place] [place] [address] documented as of this encounter Procedures Procedure Name Priority Date/Time Associated Diagnosis Comments FILM LIBRARY STORAGE ONLY MR ANKLE Routine 08/06/2018 12:00 AM EST documented in this encounter Results * Film Library- Storage Only MR Ankle (08/06/2018 12:00 AM EST) Narrative [facility] - 08/11/2018 3:05 AM EDT This exam is for storage only and is auto-finalizing. Terri Thrasher APRN [facility] FILM LIBRARY ORD ERABLES [place], [place] documented in this encounter Visit Diagnoses Not on filedocumented in this encounter Care Teams Raker Buffing Wheel Relationship Specialty Start Date End Date Terri Thrasher APRN PCP - General Family Medicine 08/01/18 02/14/21 documented as of this encounter
--- OUTSIDE RECORDS SUMMARY | 2024-01-29 02:22 | XMS_ITS | Encounter Summary ---
Author Organization [facility] [place] [address] Care Team Providers Care Public Policy Associate Name Role Phone Randell Haji MD Primary Care Provider [phone] Encounter Details Date Type Department Care Team (Late st Contact Info) Description 04/30/2018 Ancillary Procedure [place] [address] Terri Thrasher, NAMRATA [address] [place] [address] Social History Tobacco Use Types Packs/Day [...] 02/26/2024 10:10 AM [place] [address] Dennise Jaimes APRN [facility] [place] [address] 02/26/2024 11:00 AM EDT Office [place] [address] Clinic, Dr Alfaro Team None 03/05/2024 9:40 AM EDT TH Visit (TeleHealth) [place] [address] Dennise Jaimes APRN [facility] [place] [address] documented as of this encounter Procedures Procedure Name Priority Date/Time Associated Diagnosis Comments FILM LIBRARY STORAGE ONLY DX ANKLE Routine 04/30/2018 12:00 AM EST documented in this encounter Results * Film Library- Storage Only DX Ankle (04/30/2018 12:00 AM EST) Narrative [facility] - 08/05/2018 2:00 PM EST This exam is for storage only and is auto-finalizing. Terri Thrasher APRN IMG FILM LIBRARY ORD ERABLES [place], [place] documented in this encounter Visit Diagnoses Not on filedocumented in this encounter Care Teams Public Policy Associate Relationship Specialty Start Date End Date Randell Haji MD [address] [place] [phone] PCP - General 04/25/10 07/31/18 documented as of this encounter
--- OUTSIDE RECORDS SUMMARY | 2024-01-29 02:22 | XMS_ITS | Encounter Summary ---
Author Organization [facility] [place] [address] Care Team Providers Care Private Duty Nurse Name Role Phone Terri Thrasher MOTOR ELECTRICIAN Primary Care Provider + Reason for Visit * Reason Comments Establish Care left wrist pain * Consultation (Routine) - Closed Specialty Diagnoses / Procedures Referred By Jesika maddox Referred To Contact Orthopaedics Diagnoses Achilles tendinitis, left leg LEFT ACHILLES TENDINITIS Terri Thrasher, MOTOR ELECTRICIAN [address] [place] [address] [facility] [address] [place] [phone] Referral ID Status Reason Start Date Expiration Date V isits Requested Visits Authorized [id number] Closed Consult, Test & Treat [facility] 08/01/2018 08/01/2019 1 1 Encounter Details Date Type Department Care Team (Late st Contact Info) Description 08/12/2018 11:00 AM EDT Office [place] [phone] Agatha Barragan PA [facility] [place] [address] Carpal tunnel syndrome on left Social History [...] NAME: Holly Mcnally AGE: 37 y.o. MR#: [id number] DATE OF VISIT: 08/12/2018 CHIEF COMPLAINT: New [...] extension of MCP, PIP, DIP and isolation Vp Training strength: Comparable to contralateral side + tinnels [...] 02/26/2024 10:10 AM [place] [address] Dennise Jaimes APRN [facility] [place] [address] 02/26/2024 11:00 AM EDT Office [place] [address] Clinic, Dr Alfaro Team None 03/05/2024 9:40 AM EDT TH Visit (TeleHealth) [place] [address] Dennise Jaimes MOTOR ELECTRICIAN [facility] [place] [address] documented as of this encounter Visit Diagnoses Diagnosis Carpal tunnel syndrome on left Carpal tunnel syndrome documented in this encounter Care Teams Private Duty Nurse Relationship Specialty Start Date End Date Terri Thrasher APRN PCP - General Family Medicine 08/01/18 02/14/21 documented as of this encounter
--- OUTSIDE RECORDS SUMMARY | 2024-01-29 02:22 | XMS_ITS | Encounter Summary ---
Author Organization [facility] [place] [address] Care Team Providers Care Operations Tech Name Role Phone Randell Haji MD Primary Care Provider [phone] Encounter Details Date Type Department Care Team (Late st Contact Info) Description 06/08/2016 Ancillary Procedure [place] [address] Eh Brunner PA [address] [place], [place] [address] Social History Tobacco Use Types Packs/Day Years [...] 02/26/2024 10:10 [place] [address] Dennise Jaimes APRN [facility] [place] [address] 02/26/2024 11:00 AM EDT Office [place] [address] Clinic, Dr Alfaro Team None 03/05/2024 9:40 AM EDT TH Visit (TeleHealth) [place] [address] Dennise Jaimes APRN [facility] [place] [address] documented as of this encounter Procedures Procedure Name Priority Date/Time Associated Diagnosis Comments FILM LIBRARY STORAGE ONLY DX WRIST Routine 06/08/2016 12:00 AM EST documented in this encounter Results * Film Library- Storage Only DX Wrist (06/08/2016 12:00 AM EST) Narrative [facility] - 08/05/2018 2:05 PM EST This exam is for storage only and is auto-finalizing. Eh [place] IMG FILM LIBRARY ORD ERABLES [place], [place] documented in this encounter Visit Diagnoses Not on filedocumented in this encounter Care Teams Operations Tech Relationship Specialty Start Date End Date Randell Haji MD [address] [place] [phone] PCP - General 04/25/10 07/31/18 documented as of this encounter
--- OUTSIDE RECORDS SUMMARY | 2024-01-29 02:22 | XMS_ITS | Encounter Summary ---
Author Organization [facility] [place] [address] Care Team Providers Care Home Visitor Home Base Head Start Name Role Phone Randell Haji MD Primary Care Provider Reason for Visit * Reason Onset Date Comments Follow-up 10/12/2015 Encounter Details Date Type Department Care Team (Late st Contact Info) Description 10/12/2015 Telephone [place] [address] Shabana Romo APRN [facility] DR GENERAL SURGERY [address] Follow-up Social History Tobacco Use Types Packs/Day [...] 02/26/2024 10:10 AM [place] [address] Dennise Jaimes, NAMRATA [facility] [place] [address] 02/26/2024 11:00 AM EDT Office Visit Orthopaedics at [place] [phone] Clinic, Dr Alfaro Team None 03/05/2024 9:40 AM EDT TH Visit (TeleHealth) [place] [address] Dennise Jaimes, FORMULA CLERK [facility] [place] [address] documented as of this encounter Visit Diagnoses Not on filedocumented in this encounter Care Teams Home Visitor Home Base Head Start Relationship Specialty Start Date End Date Randell Haji MD [address] [place] [phone] PCP - General 04/25/10 07/31/18 documented as of this encounter
--- OUTSIDE RECORDS SUMMARY | 2024-01-29 02:22 | XMS_ITS | Encounter Summary ---
Author Organization [facility] [place] [address] Care Team Providers Care Director Of Instruction Name Role Phone Randell Haji MD Primary Care Provider [phone] Encounter Details Date Type Department Care Team (Latest Contact Info) Description 10/07/2015 12:31 PM EDT - 10/07/2015 11:59 PM EDT Hospital [place] [address] Melissa Lehman MD [facility] [place] [address] Breast pain Discharge Disposition: Home Social History [...] 02/26/2024 10:10 AM [place] [address] Dennise Jaimes APRN [facility] [place] [address] 02/26/2024 11:00 AM EDT Office [place] [address] Clinic, Dr Alfaro Team None 03/05/2024 9:40 AM EDT TH Visit (TeleHealth) [place] [address] Dennise Jaimes APRN [facility] [place] [address] documented as of this encounter Procedures Procedure [...] Mastodynia documented in this encounter Care Teams Director Of Instruction Relationship Specialty Start Date End Date Randell Haji MD [address] [place] [phone] PCP - General 04/25/10 07/31/18 documented as of this encounter
--- OUTSIDE RECORDS SUMMARY | 2024-01-29 02:22 | XMS_ITS | Encounter Summary ---
Author Organization [facility] [place] [address] Care Team Providers Care Prescriptionist Name Role Phone Nathen Duffy MD Primary Care Provider [phone] Reason for Visit * Reason Comments Breast Problem * Consultation (Routine) - Closed Specialty Diagnoses / Procedures Referred By Contac t Referred To Contact Hematology and Oncology Diagnoses Breast pain Nathen Duffy MD [address] [place] [phone] [facility] [address] [place] [address] Referral ID Status Reason Start Date Expiration Date Visits Re quested Visits Authorized [id number] Closed 09/15/2015 09/14/2016 1 1 Encounter Details Date Type Department Care Team (Late st Contact Info) Description 10/07/2015 11:00 AM EDT Office Visit [place] [address] Shabana Romo, BRAKE SPECIALIST [facility] DR GENERAL [place] [address] Chronic mastitis of right breast Social History [...] this encounter Progress Notes * Shabana Romo, BRAKE SPECIALIST - 10/07/2015 12:45 PM EDT Ms. Mcnally [...] Will have her outside mammogram reviewed at [facility]. Surgical follow up based on outcome of [...] 02/26/2024 10:10 AM [place] [address] Dennise Jaimes, [facility] [place] [address] 02/26/2024 11:00 AM EDT Office Visit Orthopaedics at [place] [phone] Clinic, Dr Alfaro Team None 03/05/2024 9:40 AM EDT TH Visit (TeleHealth) [place] [address] Dennise Jaimes, [facility] [address] documented as of this encounter Visit Diagnoses Diagnosis Chronic mastitis of right breast documented in this encounter Care Teams Prescriptionist Relationship Specialty Start Date End Date Nathen Duffy MD [address] [place] [phone] PCP - General 04/25/10 07/31/18 documented as of this encounter
--- OUTSIDE RECORDS SUMMARY | 2024-01-29 02:22 | XMS_ITS | Encounter Summary ---
Author Organization [facility] [place] [address] Care Team Providers Care Flavor Room Worker Name Role Phone Terri Thrasher APRN Primary Care Provider + Reason for Referral * Consultation (Routine) - Closed Specialty Diagnoses / Procedures Referred By Contac t Referred To Contact Neurology Mil Darby MD [facility] [place] [address] [facility] [address] [place] [phone] Referral ID Status Reason Start Date Expiration Date V isits Requested Visits Authorized [id number] Closed Consult, Test & Treat 08/12/2018 08/12/2019 1 1 * Consultation (Routine) - Closed Specialty Diagnoses / Procedures Referred By Contac t Referred To Contact Neurosurgery Diagnoses Right infundibulum vs 4mm outpouching on CTA without corresponding symptoms. Mil Darby MD [facility] [place] [address] Eugenio Hernandez MD [facility] [place] [address] Referral ID Status Reason Start Date Expiration Date V isits Requested Visits Authorized [id number] Closed Consult, Test & Treat 08/12/2018 08/12/2019 1 1 Reason for Visit * Reason Comments Dizziness Encounter Details Date Type Department Care Team (Late st Contact Info) Description 08/12/2018 4:33 PM EDT - 08/12/2018 11:26 PM EDT Emergency Emergency Department [facility] [place] [address] Nathaniel Venegas MD [facility] [place] [address] Dizziness Discharge Disposition: Home Social History Tobacco [...] be sent through Care Everywhere. * Dizziness (Portuguese) * Migraine Headache (Portuguese) documented in this encounter ED Notes * [...] L Elbow flexion 5/5 R, 5/5 L Value Stream Manager LE: 5/5 R, 5/5 L Hip flexion [...] gait 1821 Normal sinus rhythm, normal axis, OR, QRS and QTC are within normal limits. There is no evidence of arrhythmia or ischemic changes. EKG 12 Lead Wed Aug 13, 2018202 Culture Reflexed: No 0204 4 mm outpouching of the right ophthalmic artery origin, question aneurysm versus infundibulum. Normal CTA neck CT Angiogram Carotids & [place] - Medications and fluid administered: [...] Negative mcL Appearance UA Clear Clear Spec [place] UA 1.013 1.002 - 1.030 Color UA [...] is significant for: CT Angiogram Carotids & [place] Final Result 4 mm outpouching [...] exertion 3. Family history of sudden The [place] Syncope Rule: 1. History of CHF 2. Hct<30 3. EKG abnormalities 4. Present SOB 5. SBP<90 Irion Syncope Criteria, (Chastity Emerg Med. 2005;47(5):455-6. Epub [...] She was seen in the ED at [facility] and received IV fluids, reports that she [...] LMP was mid July. Social Lives in [facility]) w/ and 2 children (7 and 4). [...] bilaterally in upper and lower extremities, normal [id number] bilaterally, mild intention tremor close to target, [...] Negative mcL Appearance UA Clear Clear Spec [place] UA 1.013 1.002 - 1.030 Color UA [...] the left ophthalmic artery origin. The MCAs, purler, and ACAs are normal. Complete [place]. Intradural vertebral arteries, basilar artery, [...] 02/26/2024 10:10 AM [place] [phone] Dennise Jaimes, SUPERVISOR [employer] [facility] [place] [place] [address] 02/26/2024 11:00 AM EDT Office [place] [address] Clinic, Dr Alfaro Team None 03/05/2024 9:40 AM EDT TH Visit (TeleHealth) [place] [phone] Dennise Jaimes, [facility] [place] [address] Scheduled Referrals Name Type Priority Associated Diagnoses [...] encounter Results * CT Angiogram Carotids & [place] (08/12/2018 7:57 PM EDT) Anatomical [...] ? Electronically signed by: Mily De Anda [facility] ([phone]), at 08/12/2018 8:40 PM Narrative 08/12/2018 8:40 [...] the left ophthalmic artery origin. The MCAs, purler, and ACAs are normal. Complete [place]. Intradural vertebral arteries, basilar artery, [...] of the left ophthalmic artery origin. The MCAs,purler, and ACAs are normal. Complete [place]. Intradural vertebralarteries, basilar artery, and hemorrhage branches are normal... IMPRESSION 4 mm outpouching of the right ophthalmic artery origin, question aneurysmversus infundibulum. Normal CTA neck. Thank you for letting us participate in the care of this patient. Forquestions regarding this report, please contact the number below. Electronically signed by: Mily De Anda [facility]([phone]), at 08/12/2018 8:40 PM Nathaniel Venegas MD IMG CT ORDERABLES * [...] ? Electronically signed by: Mily De Anda [facility] ([phone]), at 08/12/2018 8:34 PM Narrative 08/12/2018 8:34 [...] (Bezet) 390 ms MUSE SYSTEM Calculated P [place] 27 degrees MUSE SYSTEM Calculated R [place] 27 degrees MUSE SYSTEM Calculated T [place] 29 degrees MUSE SYSTEM INTERPRETATION Sinus bradycardia Otherwise normal ECG No previous ECGs available Confirmed by MD CHANDRIKA, DERREK ([id number]) on 08/12/2018 11:07:51 PM MUSE SYSTEM 08/12/2018 4:19 PM EDT 08/12/2018 11:07 PM EDT Nathaniel Venegas MD ECG ORDERABLES MUSE SYSTEM * Blue Tube HOLD (08/12/2018 3:45 PM EDT) Pathologist [facility] [place] Blue Hold Sample in lab. [facility] Blood specimen (specimen) Venous Draw / Unknown 08/12/2018 3:45 PM EDT 08/12/2018 4:15 PM EDT Mack Kirk MD HEMATOLOGY ORDERABLE S [facility] [place] [address] * (ABNORMAL) Differential, Automated (08/12/2018 3:45 PM EDT) Pathologist [facility] [place] Neutrophil % 46.9 % [facility] Neutrophil Absolute 4.68 1.70 - 6.10 x10(3)/mc L [facility] Lymph % 38.9 % [facility] Lymphocytes Abs 3.9(H) 0.9 - 3.2 x10(3)/mc L [facility] Monocyte % 6.9 % [facility] Monocyte Abs 0.7 0.3 - 0.9 x10(3)/mc L [facility] Eos % 6.1 % [facility] Eosinophils Abs 0.6(H) 0.0 - 0.4 x10(3)/mc L [facility] Basophil % 0.9 % [facility] Baso Absolute 0.1 0.0 - 0.1 x10(3)/mc L [facility] Immature [...] Immature Gran Absolute 0.03 0.00 - 0.04 x10(3)/ L [facility] Blood specimen (specimen) 08/12/2018 3:45 PM EDT 08/12/2018 4:15 PM EDT Narrative Resulting Agency Comment Spec In Lab Mack Kirk MD HEMATOLOGY ORDERABLE S [facility] [place] [address] * (ABNORMAL) Hemogram (08/12/2018 3:45 PM EDT) White Blood Cell 10.0(H) 4.0 - 9.5 x10(3)/[facility] Red Blood Cell 4.70 4.00 - 5.21 x10(6)/[facility] Hemoglobin 14.5 11.7 - 15.5 gm/dL [...] CENTER LABORATORY Platelet 311 145 - 357 x10(3)/[facility] RDW Standard Deviation 40.9 37.0 - 46.0 fL [facility] RDW coefficient of variation 12.5 11.5 - 14.1 % [facility] Mean Platelet Volume 9.2 7.6 - 12.9 fL [facility] NRBC% auto 0.0 % [facility] NRBC Absolute 0.000 0.000 - 0.000 x10(3)/mc L [facility] Blood specimen (specimen) 08/12/2018 3:45 PM EDT 08/12/2018 4:15 PM EDT Narrative Resulting Agency Comment Spec In Lab Mack Kirk MD HEMATOLOGY ORDERABLE S [facility] [place] [address] * (ABNORMAL) Basic Metabolic Panel (non-fasting) (08/12/2018 [...] of body mass or the acutely ill. [email or web address] eGFR 120 >=60 mL/min/1. 73 m?? [facility] Comment: The eGFR was calculated using the CKD-EPI equation. As with all creatinine based estimates of kidney function, eGFR values calculated with the CKD-EPI equation are not accurate in patients with acute kidney failure, extremes of body mass or the acutely ill. [email or web address] Blood specimen (specimen) 08/12/2018 3:45 PM EDT 08/12/2018 4:15 PM EDT Narrative Resulting Agency Comment Spec In Lab Nathaniel Venegas MD CHEMISTRY ORDERABLES Performing Organization Address City/[facility]/ZIP Co de Phone Number [facility] [place] [address] * Urinalysis Microscopic Exam (08/12/2018 3:43 PM EDT) RBC, Urine 3 0 - 4 /HPF [facility] WBC, Urine 0 0 - 5 /HPF [facility] Urine specimen obtained by clean catch procedure (specimen) 08/12/2018 3:43 PM EDT 08/12/2018 4:18 PM EDT Narrative Resulting Agency Comment Spec In Lab Mack Kirk MD URINE ORDERABLES Performing Organization Address City/[facility]/ZIP Co de Phone Number [facility] [place] [address] * (ABNORMAL) Urinalysis with reflex Culture (08/12/2018 [...] CENTER LABORATORY Leukocytes, Urine Dipstick Negative Negative mcL [facility] Appearance, Urine Dipstick Clear Clear [facility] Specific [place] Urine Automated 1.013 1.002 - 1.030 [facility] Color, Urine Dipstick Yellow Yellow [facility] Reflex to Culture No [facility] Urine specimen obtained by clean catch procedure (specimen) 08/12/2018 3:43 PM EDT 08/12/2018 4:18 PM EDT Narrative Resulting Agency Comment Spec In Lab Nathaniel Venegas MD URINE ORDERABLES [facility] [place] [id number] * POCT urine (08/12/2018) POC Urine HCG [...] dose, Starting on Sat08/12/18 at 1944, Until Sat08/12/18 at 1945, Per [...] dose, Starting on Sat08/12/18 at 1944, Until Sat08/12/18 at 1945, Per Protocol, Warning Vesicant/Irritant Medication , Radiology Contrast, Routine 194 (Given - Provid er: Jamal Brady) documented in this encounter Care Teams Flavor Room Worker Relationship Specialty Start Date End Date Terri Thrasher, SUPER[employer] PCP - General Family Medicine 08/01/18 02/14/21 documented as of this encounter
--- OUTSIDE RECORDS SUMMARY | 2024-01-29 02:22 | XMS_ITS | Encounter Summary ---
Author Organization [facility] [place] [address] Care Team Providers Care Heat Regulator Name Role Phone Terri Thrasher NAMRATA Primary Care Provider + Encounter Details Date Type Department Care Team (Latest Contact Info) Description 08/12/2018 10:45 AM EDT - 08/12/2018 4:32 PM EDT Hospital Encounter XRay at [address] [place] [phone] Jaden Richter MD [facility] [place] [address] Left wrist pain Discharge Disposition: Home Social [...] 02/26/2024 10:10 AM [place] [address] Dennise Jaimes APRN [facility] [place] [address] 02/26/2024 11:00 AM EDT Office [place] [address] Clinic, Dr Alfaro Team None 03/05/2024 9:40 AM EDT TH Visit (TeleHealth) [place] [address] Dennise Jaimes APRN [facility] [place] [address] documented as of this encounter Procedures Procedure [...] forearm documented in this encounter Care Teams Heat Regulator Relationship Specialty Start Date End Date Terri Thrasher APRN PCP - General Family Medicine 08/01/18 02/14/21 documented as of this encounter
--- OUTSIDE RECORDS SUMMARY | 2024-01-29 02:22 | XMS_ITS | Encounter Summary ---
Author Organization [facility] [place] [address] Care Team Providers Care Tank Stave Assembler Name Role Phone Randell Haji MD Primary Care Provider [phone] Reason for Visit * Reason Comments Follow-up Encounter Details Date Type Department Care Team (Late st Contact Info) Description 02/27/2017 11:00 AM EDT Office [place] [address] Shabana Romo DESIGN COORDINATOR [facility] [place] [address] Chronic mastitis, unspecified laterality Social History Tobacco [...] October of 2015 to discuss management of manager terminal right gary ductal mastitis. 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 She does smoke (she andher plan [...] 02/26/2024 10:10 AM [place] [address] Dennise Jaimes APRN [facility] [place] [address] 02/26/2024 11:00 AM EDT Office [place] [address] Clinic, Dr Alfaro Team None 03/05/2024 9:40 AM EDT TH Visit (TeleHealth) Neurosurgery at [address] Dennise Jaimes APRN [facility] [place] [address] documented as of this encounter Visit Diagnoses Diagnosis Chronic mastitis, unspecified laterality documented in this encounter Care Teams Tank Stave Assembler Relationship Specialty Start Date End Date Randell Haji MD [address] [place] [phone] PCP - General 04/25/10 07/31/18 documented as of this encounter
--- OUTSIDE RECORDS SUMMARY | 2024-01-29 02:22 | XMS_ITS | Encounter Summary ---
Author Organization [facility] [place] [address] Care Team Providers Care Veneer Drier Name Role Phone Randell Haji MD Primary Care Provider [phone] Encounter Details Date Type Department Care Team (Late st Contact Info) Description 02/11/2017 Telephone [place] [address] Lola Kumar Social History Tobacco [...] [place] [address] Dennise Jaimes APRN [facility] [place] [address] 02/26/2024 11:00 AM EDT Office [place] [address] Clinic, Dr Alfaro Team None 03/05/2024 9:40 AM EDT TH Visit (TeleHealth) [place] [address] Dennise Jaimes APRN [facility] [place] [address] documented as of this encounter Visit Diagnoses Not on filedocumented in this encounter Care Teams Veneer Drier Relationship Specialty Start Date End Date Randell Haji MD [address] [place] [phone] PCP - General 04/25/10 07/31/18 documented as of this encounter
--- OUTSIDE RECORDS SUMMARY | 2024-01-29 02:22 | XMS_ITS | Encounter Summary ---
Author Organization [facility] [place] [address] Care Team Providers Care Radio Dispatcher Name Role Phone Randell Haji MD Primary Care Provider [phone] Encounter Details Date Type Department Care Team (Late st Contact Info) Description 09/15/2015 Orders Only Hematology and Oncology at [place] [phone] Shabana Romo SENIOR RESIDENT CARE DIRECTOR [facility] [place] [address] Breast pain Social History Tobacco Use Types [...] 02/26/2024 10:10 AM ED[place] [address] Dennise Jaimes SENIOR RESIDENT CARE DIRECTOR [facility] [place] [address] 02/26/2024 11:00 AM EDT Office [place] [address] Clinic, Dr Alfaro Team None 03/05/2024 9:40 AM EDT TH Visit (TeleHealth) [place] [address] Dennise Jaimes SENIOR RESIDENT CARE [facility] [place] [address] documented as of this encounter Visit Diagnoses Diagnosis Breast pain Mastodynia documented in this encounter Care Teams Radio Dispatcher Relationship Specialty Start Date End Date Randell Haji MD [address] [place] [phone] PCP - General 04/25/10 07/31/18 documented as of this encounter
--- OUTSIDE RECORDS SUMMARY | 2024-01-29 02:22 | XMS_ITS | Encounter Summary ---
Author Organization [facility] [place] [address] Care Team Providers Care Account Relationship Manager Name Role Phone Randell Haji MD Primary Care Provider [phone] Reason for Visit * Reason Onset Date Comments Follow-up 10/13/2015 Encounter Details Date Type Department Care Team (Late st Contact Info) Description 10/13/2015 Telephone [place] [address] Shabana Romo APRN [facility] [place] [address] Follow-up Social History Tobacco Use Types Packs/Day [...] 02/26/2024 10:10 AM EDT [place] [address] Dennise Jaimes, [facility] [place] [address] 02/26/2024 11:00 AM EDT Office [place] [address] Clinic, Dr Alfaro Team None 03/05/2024 9:40 AM EDT TH Visit (TeleHealth) [place] [address] Dennise Jaimes [facility] [place] [address] documented as of this encounter Visit Diagnoses Not on filedocumented in this encounter Care Teams Account Relationship Manager Relationship Specialty Start Date End Date Randell Haji MD [address] [place] [phone] PCP - General 04/25/10 07/31/18 documented as of this encounter
--- NOTE | 2024-01-29 11:15 | DI.MRI_ITS ---
Exam(s) MR LUMBAR SPINE WO EXAM: MR LUMBAR SPINE WO CLINICAL HISTORY: M54.50 LBP unspecified. TECHNIQUE: Multiplanar multisequence MRI of the Lumbar spine was performed. COMPARISON: CR XR LUMBAR SPINE COMPLETE from 12/17/2023 CR XR THORACIC SPINE COMPLETE from 12/17/2023 FINDINGS: Recent plain films revealed that there are 5 vertebrae of lumbar configuration and that the 12th ribs are rudimentary. Conus medullaris is at normal level. There is no evidence of conus mass nor subjacent clumping of in trathecal nerve roots to suggest arachnoiditis. The distal thecal sac appears unremarkable.There is no evidence of Tarlov intrasacral cysts nor other significant findings within the sacral canal Bones:There are no fractures nor ominous osseous lesions in the lumbar vertebral bodies and visualize d sacrum. With respect to the individual levels... T12-L1: Unremarkable L1-2: Normal disc height and signal. No disc herniation nor central canal stenosis.No foraminal steno sis L2-3: Normal disc height. No disc herniation nor central canal stenosis.No foraminal stenosis.No face t arthropathy. L3-4: Normal disc height. No disc herniation or central canal stenosis.No foraminal stenosis.No face t arthropathy. L4-5: Normal disc height and signal. No disc herniation or central canal stenosis. No foraminal ren nosis. No significant facet arthropathy. L5-S1: Normal disc height and signal. No evidence of disc herniation or central canal stenosis. No foraminal stenosis. There is some degenerative change in the facet joints at this level. There is a small degenerative synovial cyst off the posterior aspect of the right facet joint at this level. T his does not impinge upon the spinal canal/thecal sac. There are degenerative changes also noted in the left facet joint but there are no degenerative synovial cyst off the left L5-S1 facet. Soft tissues: paraspinal soft tissues appear unremarkable. IMPRESSION: 1. No evidence of disc height loss nor disc herniation in the lumbosacral spine. No evidence of cent ral canal stenosis nor foraminal stenosis at any level. 2. There is some facet joint degenerative change at L4-5 and L5-S1 levels, as described above. There is no degenerative listhesis evident. 3. No evidence of significant osseous lesions. DATA REPOSITORY:
== END 2024-01-29 02:21 ==
LOC: DI 02:01
PROVIDERS: PCP Physician Assistant Medical; Visit Provider Physician Assistant Medical
DX: M48.07 Spinal stenosis, lumbosacral region (principal)
CPT/HCPCS: 72148

== ENCOUNTER 2024-04-29 01:30 | Outpatient (CLI) | payer MEDICARE, MEDICAID, SELFPAY ==
--- NOTE | 2024-04-29 13:10 | DI.MRI_ITS ---
Exam(s) MR ANGIO BRAIN WO CLINICAL HISTORY: Aneurysm of ophthalmic artery, I67.1; JOAQUIN aneurysm,. TECHNIQUE: Multiplanar multisequence MRA of the brain was performed. 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 There is a conical shaped area at the origin of the left ophthalmic artery. It measures 2 mm in le ngth. The abdominal artery distally is normal in caliber. This may represent an infundibulum. Anterior Cerebral Arteries: Right: No aneurysm, occlusion or significant stenosis. Left: No aneurysm, occlusion or significant stenosis. Middle Cerebral Arteries: Right: No aneurysm, occlusion or significant stenosis. Left: No aneurysm, occlusion or significant stenosis. Posterior Cerebral Arteries: Right: No aneurysm, occlusion or significant stenosis. Left: No aneurysm, occlusion or significant stenosis. Vertebral Arteries: Right: No aneurysm, occlusion or significant stenosis. Left: No aneurysm, occlusion or significant stenosis. Basilar Artery: No aneurysm, occlusion or significant stenosis. IMPRESSION: 1. 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 2. Conical 2 mm appearance at the origin of the left ophthalmic artery which may represent an infundi bulum. DATA REPOSITORY:
== END 2024-04-29 01:50 ==
LOC: DI 01:30
PROVIDERS: PCP Family Medicine; Visit Provider Occupational Therapist
DX: I67.1 Cerebral aneurysm, nonruptured (principal)
CPT/HCPCS: 70544

== ENCOUNTER 2024-05-02 09:39 | Emergency (ER) | payer MEDICARE, MEDICAID, SELFPAY ==
[2024-05-02 09:43] VITALS: BP 139/66; PULSE 82; RESP 16; TEMP 37; O2SAT 99
--- OUTSIDE RECORDS SUMMARY | 2024-05-02 09:57 | XMS_ITS | Encounter Summary ---
Author Organization [facility] Address [address] [place] [address] Care Team Providers Care Centrifuge Separator Operator Name Role Phone Randell Haji MD Primary Care Provider [phone] Baron Hobson PA-C Primary Care Provider + Encounter Details Date Type Department Care Team (Latest Contact Info) Description 10/12/2022 Lab Requisition [facility] Pathology & Laboratory Medicine - [facility] [address] [place] [address] Baron Hobson PA-C [address] [place] [address] Encounter for gynecological examination (general) (routine) without abnormal findings Social History Tobacco Use Types Packs/Day Years Used Date Smoking Tobacco: Never Assessed Comments Unknown Sex and Gender Information Value Date Recorded Sex Assigned at Not on file Legal Sex Female 18:33 EST Gender Identity Choose not to disclose 13:02 EDT Sexual Orientation Not on file documented as of this encounter Plan of Treatment Not on file documented as of this encounter Procedures Procedure [...] Risk types, PCR Negative Negative 10/24/2022 16:42 [facility] Comment:No E6 or E7 mRNA is detected from HPV types 16,18,31,33,35,39,45,51,52,56,58,59,66, and 68 by health education specialist mediated amplification. Papanicolaou smear specimen (specimen) CERVIX UTERI STRUCTURE / Unknown 10/10/2022 14:30 EDT 10/23/2022 16:36 EDT us Baron Hobson PA-C MICROBIOLOGY - GENERAL O RDERABLES Final Result [facility] [address] [place] [address] * PAP TEST (10/10/2022 14:30 EDT) Specimens A. Cervix and/or Endocervix , ThinPrep Imaging System with Manual Evaluation 10/24/2022 16:42 [facility] Specimen Adequacy Satisfactory for Evaluation - transformation zone component present 10/24/2022 16:42 [facility] General Categorization Negative for intraepithelial lesion or malignancy 10/24/2022 16:42 [facility] Descriptive Diagnosis Reactive cellular changes associated with inflammation present (includes repair). 10/24/2022 16:42 [facility] Attestation By the signature below, the attending physician certifies that they have personally conducted a gross and/or microscopic examination of the described specimens and rendered or confirmed the above diagnosis. 10/24/2022 16:42 [facility] at 1641 Clinical History See below 10/25/19 16:42 [facility] HPV The result for the Human Papillomavirus (HPV) Detection-High Risk Types is Negative. No E6 or E7 mRNA is detected from HPV types 16,18,31,33,35,39 ,45,51,52,56,58,5 9,66, and 68 by health education specialist mediated amplification.Santa ting was performed on specimen [id number] and was resulted on 10/24/2022 1641 EDT by SARA, LAB INSTRUMENT RESULTS IN 10/24/2022 16:42 EDT [facility] Performing Lab [facility] 10/24/2022 16:42 EDT [facility] Scanned Images 10/24/2022 16:42 EDT [facility] Papanicolaou smear specimen (specimen) CERVIX UTERI STRUCTURE / Unknown 10/10/2022 14:30 EDT 10/12/2022 12:37 EDT us Baron Hobson PA-C PATHOLOGY ORDERABLES Fin al Result [facility] [address] [place] [address] documented in this encounter Visit Diagnoses Diagnosis Encounter for gynecological examination (general) (routine) without abnormal findings documented in this encounter Care Teams Centrifuge Separator Operator Relationship Specialty Start Date End Date Randell Haji MD [address] [place] [address] PCP - General 04/04/11 12/12/23 Baron Hobson PA-C [address] [place] [address] PCP - General 12/13/23 documented as of this encounter
--- OUTSIDE RECORDS SUMMARY | 2024-05-02 09:57 | XMS_ITS | Data Portability ---
Author Organization [place] - [facility], MAIN OFFICE [place] [address] Assessment Encounter Date Assessment Date Assessment LastModified [...] recorded. Lab lipid panel, serum 2021 022 [facility] (Registration ), [address] [place] [address] , [place], [address], 05:00:44 homocystein e, serum or plasma 2021 022 [facility] (Registration ), [address] [place] [address] [place], [address], 3 05:00:44 lipoprotein (a), quant, serum 2021 [facility] (Registration ), [address] [place] [address] [place], [address], 3 05:00:44 HbA1c (hemoglobin A1c), blood 2021 [facility] (Registration ), [address] [place] [address] [place], [address], 3 05:00:44 vitamin D3, 25-hydroxy, serum 2021 [facility] (Registration ), [address] [place] [address] [place], [address], 3 05:00:44 vitamin B6 (pyridoxine ), plasma 2021 [facility] (Registration ), [address] [place] [address] [place], [address], 3 05:00:44 T3, free, serum or plasma 2021 [facility] (Registration ), [address] [place] [address] [place], [address], 3 05:00:44 TSH + free T4, serum 2021 [facility] (Registration ), [address] [place] [address] [place], [address], 3 05:00:44 CMP, serum or plasma 2021 [facility] (Registration ), [address] [place] [address] [place], [address], 3 05:00:44 vitamin B12 + folate, serum or blood 2021 022 [facility] (Registration ), [address] [place] [address] [place], [address], 3 05:00:44 iron + TIBC + ferritin, serum 2021 022 [facility] (Registration ), [address] [place] [address] [place], [address], 3 05:00:44 Referral None recorded. Procedures None recorded. Surgeries None recorded. Imaging None recorded. Medication Orders None recorded. Patient TargetsNo targets recorded. Patient Instructions Encounter Date Encounter Id Patient Instructions Last Modified By Organization Details Last Modified Time 11/22/2021 [id number] 1. neurotransmitter- testing with melatonin 300.00 2. pure-genomics b complex- 1 cap/day 3. bloodwork above sent to [facility]- 4. herbal anxiolytic will discuss after bloodwork- 5. pur gum as sub for regular gum- can be found at [employer] or sometimes [employer] 6. OX bile 1 cap with meals especially if fatty like hamburger or hotdog or eggs and dairy Not available 12/12/2021 16:31:39 12/27/2021 [id number] diarrhea: care instructions Not available 01/14/2022 18:35:38 1 try [facility] for finding healthier gum and continue to [...] Address Organization Details Recorded Time Depressive disorder 96488257 Active 2021 Romi Eli ND [address] [place] [address], [place], [address], [facility] - [facility] 2 13:37:53 Anxiety 34507572 Active 2021 Romi Eli ND [address] [place] [address], [address], [facility] 2 13:50:42 Hyperlipide live 91158226 Active 2021 Romi Eli [address], [address], [facility] 2 13:51:07 Vitamin D deficiency 27851547 Active 2021 Romi Eli [address], [address], [facility] 2 13:55:38 Fatigue 12461531 Active 2021 [place] [address], [facility] 2 13:58:14 Numbness and tingling sensation of skin 846617454205 Active 2021 Romi Eli [place] [address], [facility] 2 14:14:46 Loose stool 366819486 Active [address], [address] [place] [address] 1, [facility] 2 17:50:44 Problem Notes None recorded. Medical Equipment None Reported. Allergies Allergen ID Allergen Name Allergen Category Reaction Reaction Severity Criticality Documentation Date Start Date Code Code System Note Provider Name and Address Organization Details Recorded Time 3822 amoxicill in medicatio n angioedem a severe high 11/22/2021 723 RxNorm passe d out, vomit ing, took to [facility]- Romi [address], [address], [facility] 2 13:31:00 Medications Name Sig Start [...] Address Organization Details Last Updated DateTime 2 22346.9 2 g 34.4 kg/m2 160.02 cm 74 /min 90 mm[Hg] 60 mm[Hg] Romi Eli ND [address] [place] [address], [address] [place] [address] 2 13:28:34 Social History None recorded. Functional Status None recorded. Mental Status None recorded. Family History Nothing Reported. Medical History No medical history recorded. Gynecological HistoryNo gynecological history recorded. Obstetrics History GPAL:G 0 P 0 0 0 0 Past Encounters Encounter ID Performer Location Encounter Start Date Encounter Closed Date Diagnosis/Indication Diagnosis SNOMED-CT Code Diagnosis ICD10 Code [id number] Romi Eli ND MAIN OFFICE [address] [place] [address] 11/22/2021 13:20:10 12/12/2021 16:31:52 Anxiety 76496416 F41.9 Hyperlipid emia screening 838869495 Z13.220 Family his tory of diabetes mellitus type 2 202367775 Z83.3 Vitamin D deficiency 347 [address]892 E55.9 Fatigue 92843854 R53.83 Numbness a nd tingling sensation of skin 7884169152 02 R20.2 [id number] Romi Eli ND MAIN OFFICE [address] [place] [address] 12/27/2021 12:42:29 01/14/2022 18:35:53 Anxiety 84301955 F41.9 Loose stool 846290281 R1 9.5 Health Concerns Section Related Observation LastModified by Organization Detai ls LastModified Time None Recorded Concern Status LastModified by Organization Details LastModified Time None Recorded Advance Directives Directive None Recorded Payers Encounter Date Sequence Insurance Name Policy Number Policy Brown Covered Member ID Brown Member ID Guarantor Name 11/22/2021 1 [facility] (MEDICAID) Holly Mcnally [id number] Holly Mcnally 12/27/2021 1 [facility] (MEDICAID) Holly Mcnally [id number] Holly Mcnally Notes Date Note Type Note Provider Name and Address Organization Details Recorded Time 11/22/2021 text/html she is changing diet and staying away from preservative free and sugar free- 1-2 months to get rid of it allpreservative free chips and fresh fruit- she had a severe diarhhea and vomiting to amxicillin an dshe was told it was anxiety- and didnt beieve she lost consciousnessbut not she doesnt touch it if her son has to take- she has been on disability for dpression and anxiety- hospitalized for suicide once as a child she had anxiety and as both-mother didnt acknowledge it- her grandmother address for her not on meds-she was 22- \she was put on diability after her brother diesd he was 27 and she was 27she is a ddicted to nicotene- 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- meds and stopped 12 yrs agoshe quit smoking in August-now she is averse to it-she chews gum alot-she got all her teeth pulled and she never got dentures she has noneher teeth were rotting when her mom was 21 her mother lost all of hers- OCD and possibly other [id number] that she on flutexitineshe would cry every day for months-she likes working independantly and not able to get pissed off- she gets structure-not structured with diet- she will not be hungry until 10 amwakes 3 am-she wakes a lot at 3 amptsd and anxiety-from dad-brother committed suicide-father- triggers-2019 porbation for 2 yrs-he goes to grandfathers with him-close to aunts and happier with him than she has full custody sleep she takes melatonin-2 mg- it helps but doesnt cure it-8:30/98pm to bed and she cant stay up past and then she cant go back to fam hx polycystic ovaries as well she gets bouts of diarhhea-she had her gallbladder out and ever since she gets loose stools especially with fatsox bile support discussed Romi Eli ND [address] [facility], [place], [address], [facility] - [facility] [employer] 12/12/2021 16:31:42 12/27/2021 text/html stoamch is much better and has nt had the need to take oxbile she is taking b- vitaminsshe feels better when she takes them- she will do really good for a weekAug she made a new appt for bloodwork- it was not done for todays appt she is eatign more homecooked meals-bowels are less loose when she eats this way she tried an alternative to dairy and is made her stmoach upset so she will NOT be stopping-coffee increases anxiety so she is trying to quit- she needs a better gum still she will keep looking- she was velarian root-she was having trauma and ptsd induced from her childrens dad-velarian helped but after 3 noghts of it she got headache and cramps- space case she saysshe took 2 caps and were 550plus milligrams they recommended 4 caps and she took 2herbs seem to make her have side effects- less is more for her-she us currently off lorazpamshe hasnt gone back to docotr to refill- discussed possible interactions and to stop if put back on lorazepam Romi Eli ND [address] [facility], [place], [address], [place] - [facility] [employer] 01/14/2022 18:35:43 OBGyn Episode No OBEpisode recorded.
--- OUTSIDE RECORDS SUMMARY | 2024-05-02 09:57 | XMS_ITS | Encounter Summary ---
Author Organization [facility] [place] [address] Care Team Providers Care Manager Bank Name Role Phone Baron Hobson Primary Care Provider [phone] Encounter Details Date Type Department Care Team (Late st Contact Info) Description 03/16/2024 [place] [address] Yaneth Ramirez RN Social History Tobacco Use Types Packs/Day [...] encounter Miscellaneous Notes * Telephone Encounter - Yaneth Ramirez RN - 03/16/2024 8:15 AM EDT Copied from [facility] #[id number]. Topic: Specialty Dept CRMs - Orders >> Mar 13, 2024 3:49 PM Maisha Nunez wrote: Orders Request Specialist: Jaimes Relationship (if other than patient-full name): Carmen [facility] Radiology MRI Scheduling Type of Request: [x] Send orders - Received order but is listed to be performed with [facility] and not external, need new order listed as external. Also need screening form done for the MRI, states she will fax to department fax number now. Type/Name of Order: Imaging If Labs and Imaging list name of specific test(s): MRI Angiogram Head wo Contrast (Generic) (Order [id number]) Date of Lab/Imaging/Testing Appt: x Date of Provider Appt: x Appt Type with Provider: Other: x Patient Requesting to Have Orders Sent to Facility Outside of [facility]: Yes -- Screening form needed as well, faxed to clinic fax. If Yes, Name of Facility: [facility] Address: [address] [place] [address] Dr [place] Phone #: [phone] Fax #: [phone] Orders re-faxed to [facility] by Neurosurgery Rate Manager. documented in this encounter Plan of Treatment Upcoming Encounters Date Type Department Care Team (Late st Contact Info) Description 07/08/2024 11:00 AM EST Office [place] [address] Clinic, Dr Alfaro Team None documented as of this encounter Visit Diagnoses Not on filedocumented in this encounter Care Teams Manager Bank Relationship Specialty Start Date End Date Baron Hobson PA [address] [place] [address] PCP - General Family Medicine 02/01/23 documented as of this encounter
--- OUTSIDE RECORDS SUMMARY | 2024-05-02 09:57 | XMS_ITS | Encounter Summary ---
Author Organization [facility] Address [address] [place] [address] Care Team Providers Care Sharepoint Solutions Architect Name Role Phone Unknown, Provider Primary Care Provider Unava ilable Encounter Details Date Type Department Care Team (Late st Contact Info) Description 03/15/2011 Results Only Imaging [facility] [phone] Boubacar Hough MD [address] [place] [address] [address] [place], [place] [id number] Social History Tobacco Use Types Packs/Day Years Used Date Smoking Tobacco: Never Assessed Comments Unknown Sex and Gender Information Value Date Recorded Sex Assigned at Not on file Legal Sex Female 18:33 EST Gender Identity Choose not to disclose 4 13:02 EDT Sexual Orientation Not on file documented as of this encounter Plan of Treatment Not on file documented as of this encounter Procedures Procedure Name Priority Date/Time Associated Diagnosis Comments SKILLED NURSING ULTRASCREEN (INCLUDES SEQUENTIAL SCREEN) 04/04/2011 16:12 EDT documented in this encounter Results * SKILLED NURSING ULTRASCREEN (04/04/2011 16:12 EDT) Anatomical Region Laterality [...] of Ultrasound Findings: Transabdominal US. U/S machine: Ikro 9. U/S view: limited by adiposity. Maternal Structures: Right Ovary: Normal w/ simple cyst. Cysts Right Ovary: Cyst 1: Mean value: 36 mm. D1: 33 mm. D2: 35 mm. D3: 39 mm. Volume: 24 ml. Simple cyst. Left Ovary: not examined. Report Summary: Impression: NOTE: This study was ordered as an NT ONLY so maternal and anatomy assessments were not performed. 51877 Nuchal translucency measurement This is a etienne [...] screening, you may still send serum to [facility] for MSAFP alone to screen for neural [...] of Ultrasound Findings: Transabdominal US. U/S machine: Ikro 9. U/S view: limited by adiposity. Maternal Structures: Right Ovary: Normal w/ simple cyst. Cysts Right Ovary: Cyst 1: Mean value: 36 mm. D1: 33 mm. D2: 35 mm. D3: 39 mm. Volume: 24 ml. Simple cyst. Left Ovary: not examined. Report Summary: Impression: NOTE: This study was ordered as an NT ONLY so maternal and anatomy assessments were not performed. 35711 Nuchal translucency measurement This is a etienne [...] screening, you may still send serum to [facility] for MSAFP alone to screen for neural [...] ... ... ... ... Boubacar Hough MD [facility] SKILLED NURSING ORDERABLES Final Resu lt documented in this encounter Visit Diagnoses Not on filedocumented in this encounter Care Teams Sharepoint Solutions Architect Relationship Specialty Start Date End Date Unknown, Provider, PCP - General 07/06/09 04/03/11 documented as of this encounter
--- OUTSIDE RECORDS SUMMARY | 2024-05-02 09:57 | XMS_ITS | Clinical Summary ---
Author Organization [facility] Address [address] [place] [address] Care Team Providers Care Senior Embedded Software Engineer Name Role Phone Baron Hobson PA-C Primary [...] Mass Index - - Plan of Treatment Health Maintenance Due Date Last Done Comments Hepatitis B Vaccine (1 of 3 - 19+ 3-dose series) 09/07 COVID-19 Vaccine (2023- season) 2024 Hepatitis C Screen Completed 08/14/2021 Procedures Procedure Name Priority Date/Time Associated Diagnosis Comments HEPATITIS C AB W REFLEX TO HCV RNA BY PCR Routine 08/14/2021 9:35 EDT from Last 3 Months or Most Recently Relevant to Health Maintenance Results * HEPATITIS C AB W REFLEX TO HCV RNA BY PCR (08/14/2021 9:35 EDT) Hep C Antibody Negative Negative 08/15/2021 9:58 EDT [facility] Blood VENOUS BLOOD / Unknown 08/14/2021 9:35 EDT 08/14/2021 17:03 EDT us Provider Outr Resulting Lab CHEMISTRY & BLOOD GA S ORDERABLES Final Result [facility] [address] [place] [address] from Last 3 Months or Most Recently Relevant to Health Maintenance Insurance MEDICARE Care Teams Senior Embedded Software Engineer Relationship Specialty Start Date End Date Baron Hobson PA-C [address] [place] [phone] PCP - General 12/13/23
--- OUTSIDE RECORDS SUMMARY | 2024-05-02 09:57 | XMS_ITS | Encounter Summary ---
Author Organization [facility] Address [address] [place] [address] Care Team Providers Care Credit And Loan Collections Supervisor Name Role Phone Randell Haji MD Primary Care Provider [phone] Baron Hobson PA-C Primary Care Provider + Encounter Details Date Type Department Care Team (Late st Contact Info) Description 06/19/2022 Lab Requisition [facility] Pathology & Laboratory Medicine - [address] [id number] Outr Resulting Lab, Provider Social History Tobacco [...] 97 - 169 ng/dL 06/19/2022 22:19 EST [facility] Blood VENOUS BLOOD / Unknown 06/19/2022 11:30 EST 06/19/2022 21:26 EST us Provider Outr Resulting Lab CHEMISTRY & BLOOD GA S ORDERABLES Final Result [facility] [address] [place] [address] documented in this encounter Visit Diagnoses Not on filedocumented in this encounter Care Teams Credit And Loan Collections Supervisor Relationship Specialty Start Date End Date Randell Haji MD [address] [place] [address] PCP - General 04/04/11 12/12/23 Baron Hobson PA-C [address] [place] [address] PCP - General 12/13/23 documented as of this encounter
--- OUTSIDE RECORDS SUMMARY | 2024-05-02 09:57 | XMS_ITS | Encounter Summary ---
Author Organization [facility] Address [address] [place] [address] Care Team Providers Care Eye Glass Frame Polisher Name Role Phone Randell Haji MD Primary Care Provider [phone] Baron Hobson PA-C Primary Care Provider + Encounter Details Date Type Department Care Team (Late st Contact Info) Description 11/13/2023 Lab Requisition [facility] Pathology & Laboratory Medicine - [address] [address] Outr Resulting Lab, Provider Social History Tobacco [...] Lyme Ab Negative Negative 11/14/2023 11:54 EDT [facility] Blood VENOUS BLOOD / Unknown 11/12/2023 12:15 EDT 11/13/2023 16:54 EDT us Provider Outr Resulting Lab IMMUNOLOGY AND SEROL OGY ORDERABLES Final Result [facility] [address] [place], [place] [address] documented in this encounter Visit Diagnoses Not on filedocumented in this encounter Care Teams Eye Glass Frame Polisher Relationship Specialty Start Date End Date Randell Haji MD [address] [place] [address] PCP - General 04/04/11 12/12/23 Baron Hobson PA-C [address] [place] [id number] PCP - General 12/13/23 documented as of this encounter
--- OUTSIDE RECORDS SUMMARY | 2024-05-02 09:57 | XMS_ITS | Encounter Summary ---
Author Organization [facility] Address [address] [place] [address] Care Team Providers Care Rotor Winder Name Role Phone Randell Haji MD Primary Care Provider [phone] Baron Hobson PA-C Primary Care Provider + Encounter Details Date Type Department Care Team (Late st Contact Info) Description 03/30/2021 Lab Requisition [facility] Pathology & Laboratory Medicine - [address] [id number] Outr Resulting Lab, Provider Social History Tobacco [...] Priority Date/Time Associated Diagnosis Comments ZZCOVID-19 TEST [facility] PCR Today 03/29/2021 14:30 EDT COVID-19 TESTING Routine 03/29/2021 14:3 0 EDT documented in this encounter Results * COVID-19 TEST [facility] PCR (03/29/2021 14:30 EDT) Swab ENTIRE NASOPHARYNX / Unknown 03/29/2021 14:30 EDT 03/30/2021 17:18 EDT us Provider Outr Resulting Lab MICROBIOLOGY - GENER AL ORDERABLES Final Result Performing Organization Address [facility] Co de Phone Number [facility] [address] [place] [address] * COVID-19 TESTING (03/29/2021 14:30 EDT) COVID-19 rt-PCR Result Negative Negative 03/31/2021 10:18 EDT [facility] Comment: This test has [...] performed using the enoch SARS-CoV-2 assay ([employer] on the Enoch 6800 System Performing Lab [address] [facility] Lab 03/31/2021 10:18 EDT [facility] Swab 03/29/2021 14:3 0 EDT 03/30/2021 17:18 EDT us Provider Outr Resulting Lab MICROBIOLOGY - GENER AL ORDERABLES Final Result Performing Organization Address [facility] Co de Phone Number [facility] [address] [place] [address] documented in this encounter Visit Diagnoses Not on filedocumented in this encounter Care Teams Rotor Winder Relationship Specialty Start Date End Date Randell Haji MD [address] [place] [address] PCP - General 04/04/11 12/12/23 Baron Hobson PA-C [address] [place] [phone] PCP - General 12/13/23 documented as of this encounter
--- OUTSIDE RECORDS SUMMARY | 2024-05-02 09:57 | XMS_ITS | Encounter Summary ---
Author Organization [facility] Address [address] [place] [address] Care Team Providers Care Senior Database Administrator Name Role Phone Randell Haji MD Primary Care Provider [phone] Baron Hobson PA-C Primary Care Provider + Encounter Details Date Type Department Care Team (Late st Contact Info) Description 08/14/2021 Lab Requisition [facility] Pathology & Laboratory Medicine - [address] [address] Outr Resulting Lab, Provider Social History Tobacco [...] C Antibody Negative Negative 08/15/2021 9:58 EDT [facility] Blood VENOUS BLOOD / Unknown 08/14/2021 9:35 EDT 08/14/2021 17:03 EDT us Provider Outr Resulting Lab CHEMISTRY & BLOOD GA S ORDERABLES Final Result [facility] [address] [place] [address] documented in this encounter Visit Diagnoses Not on filedocumented in this encounter Care Teams Senior Database Administrator Relationship Specialty Start Date End Date Randell Haji MD [address] [place] [address] PCP - General 04/04/11 12/12/23 Baron Hobson PA-C [address] [place] [address] PCP - General 12/13/23 documented as of this encounter
--- OUTSIDE RECORDS SUMMARY | 2024-05-02 09:57 | XMS_ITS | Referral Summary ---
Author Organization [facility] Address [address] [place] [address] Care Team Providers Care Subsystems Engineer Name Role Phone Arturash Baron Verdugo PA-C Primary Care Provider + Allergies No [...] Mass Index - - Plan of Treatment Not on file Procedures Procedure Name Priority Date/Time Associated Diagnosis Comments HEPATITIS C AB W REFLEX TO HCV RNA BY PCR Routine 08/14/2021 9:35 EDT from Last 3 Months or Most Recently Relevant to Health Maintenance Results * HEPATITIS C AB W REFLEX TO HCV RNA BY PCR (08/14/2021 9:35 EDT) Hep C Antibody Negative Negative 08/15/2021 9:58 EDT [facility] Blood VENOUS BLOOD / Unknown 08/14/2021 9:35 EDT 08/14/2021 17:03 EDT us Provider Outr Resulting Lab CHEMISTRY & BLOOD GA S ORDERABLES Final Result [facility] [address] [place] [address] from Last 3 Months or Most Recently Relevant to Health Maintenance Insurance MEDICARE Care Teams Subsystems Engineer Relationship Specialty Start Date End Date Baron Hobson PA-C [address] [place] [phone] PCP - General 12/13/23
--- OUTSIDE RECORDS SUMMARY | 2024-05-02 09:57 | XMS_ITS | Encounter Summary ---
Author Organization [facility] [place] [address] Care Team Providers Care Bar Assistant Name Role Phone Baron Hobson Primary Care Provider [phone] Reason for Referral * Diagnostic Test (Routine) - Authorized Specialty Diagnoses / Procedures Referred By Jesika t Referred To Contact Radiology Diagnoses Aneurysm of ophthalmic artery Procedures MRI Angiogram Head wo Contrast (Generic) Dennise Jaimes APRN [facility] [place] [address] [address] Referral ID Status Reason Start Date Expiration Date Visits Requested Visits Authorized [id number] Authorized Specialty Service Requested 4 10/29/2025 1 1 Encounter Details Date Type Department Care Team (Latest Contact Info) Description 05/01/2024 9:20 AM EST TH Visit (TeleHealth) [place] [address] Dennise Jaimes [address]N [facility] 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 Discussed low risk of rupture, that treatment could be considered, but given location of R ophthalmic artery based on DSA in 2019, this may be more risky. Currently treatment risk outweighs that of observation. Repeat MRA head 1 year at [facility] in [facility]. Symptoms of SAH reviewed; discussed that it can be challenging to distinguish SAH from other severeh/a, so ok to err on side of caution. 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 Cerebral angiogram 2019, broad necked, would require flow diverting stent. Followed with serial MRA by Dr. Hernandez. 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 Facial droop Chronic pain of left ankle Chronic mastitis of right breast HISTORY: Holly A Young Seen via video visit. Gets periodic headaches over the past year. Nothing that has not resolved or progressed. Unsure about family history, maybe on her mother's side. Wants to keep close tabs on aneurysm, as she is a single parent. PHYSICAL EXAM: No acute distress Awake, Alert, Interactive Fluent speech. IMAGING & OTHER RESULTS: MRA head 04/29/24 personally reviewed. Unchanged appearance of small JOAQUIN aneurysm and presumed L ICA infundibulum. 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 Discussed low risk of rupture, that treatment could be considered, but given location of R ophthalmic artery based on DSA in 2019, this may be more risky. Currently treatment risk outweighs that of observation. Repeat MRA head 1 year at [facility] in [facility]. Symptoms of SAH reviewed; discussed that it can be challenging to distinguish SAH from other severeh/a, so ok to err on side of caution. documented in this encounter Plan of Treatment Upcoming Encounters Date Type Department Care Team (Late st Contact Info) Description 07/08/2024 11:00 AM EST Office [place] [address] Clinic, Dr Alfaro Team None Scheduled Orders Name Type Priority Associated Diagnoses Orde r Schedule MRI Angiogram Head wo Contrast (Generic) Imaging Routine Aneurysm of ophthalmic artery Expected: 05/01/2025, Expires: 10/29/2025 documented as of this encounter Visit Diagnoses Diagnosis Aneurysm of ophthalmic artery Cerebral aneurysm, nonruptured documented in this encounter Care Teams Bar Assistant Relationship Specialty Start Date End Date Baron Hobson PA [address] [place] [address] PCP - General Family Medicine 02/01/23 documented as of this encounter
--- OUTSIDE RECORDS SUMMARY | 2024-05-02 09:57 | XMS_ITS | Encounter Summary ---
Author Organization [facility] [place] [address] Care Team Providers Care Sustainable Design Consultant Name Role Phone Baron Hobson Primary Care Provider [phone] Encounter Details Date Type Department Care Team (Late st Contact Info) Description 04/29/2024 7:55 PM EST Ancillary Procedure Radiology Library at [facility] [place] [phone] Dennise Jaimes POCKETS AND PIECES NECKTIE OPERATOR [facility] [place] [address] Arrived Social History Tobacco Use Types Packs/Day Years [...] 11:00 AM EST Office [place] [phone] Clinic, Dr Alfaro Team None documented as of this encounter Procedures Procedure Name Priority Date/Time Associated Diagnosis Comments FILM LIBRARY STORAGE ONLY MR HEAD Routine 04/29/2024 7:51 PM EST documented in this encounter Results * Film Library- Storage Only MR Head (04/29/2024 7:51 PM EST) Narrative RAD - 04/29/2024 7:51 PM EST This exam is auto-finalizing. It's purpose is for storage only. Dennise Jaimes APRN IMG FILM LIBRARY ORD ERABLES [place], [place] documented in this encounter Visit Diagnoses Not on filedocumented in this encounter Care Teams Sustainable Design Consultant Relationship Specialty Start Date End Date Baron Hobson PA [address] [place] [address] PCP - General Family Medicine 02/01/23 documented as of this encounter
--- OUTSIDE RECORDS SUMMARY | 2024-05-02 09:57 | XMS_ITS | Encounter Summary ---
Author Organization [facility] Address [address] [place] [address] Care Team Providers Care Therapeutic Massage Technician Name Role Phone Randell Haji MD Primary Care Provider [phone] Encounter Details Date Type Department Care Team (Latest Contact Info) Description 03/25/2015 9:52 EDT - 03/25/2015 23:59 EDT Hospital Encounter [address] [address] Unknown, Provider, Discharge Disposition: Home or Self [...] Code Departure Means Destination Home or Self Prison documented in this encounter Plan of Treatment Not on file documented as of this encounter Visit Diagnoses Not on filedocumented in this encounter Care Teams Therapeutic Massage Technician Relationship Specialty Start Date End Date Randell Haji MD [address] [place] [address] PCP - General 04/04/11 12/12/23 documented as of this encounter
--- OUTSIDE RECORDS SUMMARY | 2024-05-02 09:57 | XMS_ITS | Encounter Summary ---
Author Organization [facility] Address [address] [place] [address] Care Team Providers Care Peg Driver Name Role Phone Randell Haji MD Primary Care Provider [phone] Baron Hobson PA-C Primary Care Provider + Encounter Details Date Type Department Care Team (Late st Contact Info) Description 10/26/2021 Lab Requisition [facility] Pathology & Laboratory Medicine - [address] [id number] Outr Resulting Lab, Provider Social History Tobacco [...] Results * RHEUMATOID FACTOR (10/26/2021 11:35 EDT) Rheumatoid Factor <8.6 <12.0 IU/mL 10/26/2021 21:56 EDT [facility] Blood VENOUS BLOOD / Unknown 10/26/2021 11:35 EDT 10/26/2021 21:35 EDT Provider Outr Resulting Lab CHEMISTRY & BLOOD GA S ORDERABLES Final Result Performing Organization Address [facility] de Phone Number [facility] [address] [place] [address] * ANTI NUCLEAR AB (UZIEL), IFA (10/26/2021 11:35 EDT) Pathologist [facility] UZIEL Interpretation Negative Negative 2021 14:10 EDT [facility] Comment: Cytoplasmic Pattern Noted, Reticular/Mitochondrion-like No titer performed, UZIEL Screen is negative. Blood VENOUS BLOOD / Unknown 10/26/2021 11:35 EDT 10/26/2021 21:35 EDT Narrative [facility] - 10/27/2021 14:10 EDT Results were obtained with the [employer] NOVA Lite HEp-2 UZIEL Kit by indirect immunofluorescence. us Provider Outr Resulting Lab IMMUNOLOGY AND SEROL OGY ORDERABLES Final Result Performing Organization Address [facility] de Phone Number [facility] [address] [place] [address] * HIGH SENSITIVITY C-REACTIVE PROTEIN (CARDIOVASCULAR DISEASE) (10/26/2021 11:35 EDT) Pathologist [facility] High Sensitivity CRP 1.64 See Note mg/L 10/26/2021 21:56 EDT [facility] Comment: Reference Range: ??Low Risk: ? <1.0 mg/L ??Average Risk: ?? 1.0 - 3.0 mg/L ??High Risk: ?>3.0 mg/L ??Indeterminate*: >10.0 mg/L ??*May be an indication of another source of inflammation or infection Blood VENOUS BLOOD / Unknown 10/26/2021 11:35 EDT 10/26/2021 21:35 EDT us Provider Outr Resulting Lab CHEMISTRY & BLOOD GA S ORDERABLES Final Result [facility] [address] [place] [address] documented in this encounter Visit Diagnoses Not on filedocumented in this encounter Care Teams Peg Driver Relationship Specialty Start Date End Date Randell Haji MD [address] [place] [address] PCP - General 04/04/11 12/12/23 Baron Hobson PA-C [address] [place] [address] PCP - General 12/13/23 documented as of this encounter
--- OUTSIDE RECORDS SUMMARY | 2024-05-02 09:57 | XMS_ITS | Encounter Summary ---
[place] [address] Care Team Providers Care Orthopedics Nurse Name Role Phone Baron Hobson Primary Care Provider [phone] Encounter Details Date Type Department Care Team [...] 11:00 AM EST Office [place] [address] Clinic, Dr Alfaro Team None documented as of this encounter Visit Diagnoses Not on filedocumented in this encounter Care Teams Orthopedics Nurse Relationship Specialty Start Date End Date Baron Hobson PA [address] [place] [address] PCP - General Family Medicine 02/01/23 documented as of this encounter
--- OUTSIDE RECORDS SUMMARY | 2024-05-02 09:57 | XMS_ITS | Encounter Summary ---
Author Organization [facility] Address [address] [place] [address] Care Team Providers Care Gear Room Keeper Name Role Phone Randell Haji MD Primary Care Provider [phone] Baron Hobson PA-C Primary Care Provider + Encounter Details Date Type Department Care Team (Late st Contact Info) Description 07/26/2023 Lab Requisition [facility] Pathology & Laboratory Medicine - [address] [address] Outr Resulting Lab, Provider Social History Tobacco [...] <1.0 See Note ug/dL 07/26/2023 18:13 EST [facility] Comment: Reference Range: >= 1.8 ug/dL = non-suppression < 1.8 ug/dL = suppression (normal) Blood VENOUS BLOOD / Unknown 07/26/2023 8:05 EST 07/26/2023 17:18 EST Narrative [facility] - 07/26/2023 18:13 EST The results of this assay can be falsely elevated due to the consumption of Biotin. us Provider Outr Resulting Lab CHEMISTRY & BLOOD GA S ORDERABLES Final Result [facility] [address] [place] [address] documented in this encounter Visit Diagnoses Not on filedocumented in this encounter Care Teams Gear Room Keeper Relationship Specialty Start Date End Date Randell Haji MD [address] [place] [address] PCP - General 04/04/11 12/12/23 Baron Hobson PA-C [address] [place] [address] PCP - General 12/13/23 documented as of this encounter
--- OUTSIDE RECORDS SUMMARY | 2024-05-02 09:57 | XMS_ITS | Encounter Summary ---
Author Organization [facility] Address [address] [place] [address] Care Team Providers Care Contact And Service Clerks Supervisor Name Role Phone Unknown, Provider Primary Care Provider Unava ilable Encounter Details Date Type Department Care Team (Late st Contact Info) Description 03/15/2011 Results Only [facility] Laboratory Services - [facility] ([facility]) [address] [place], [place] [address] Rachelle Hough MD [address] [place] [address] [address] [place] [address] Social History Tobacco Use Types Packs/Day Years [...] ? YUNG MCNALLY ? Accession #: ? [id number] : ? 1980 (Age: 30) ??F ?Collect [...] End of Report [facility] 03/15/2011 03/16/2011 us Rachelle Hough MD PATHOLOGY ORDERABLES Final Resul t [facility] [address] [place] [address] documented in this encounter Visit Diagnoses Not on filedocumented in this encounter Care Teams Contact And Service Clerks Supervisor Relationship Specialty Start Date End Date Unknown, Provider, PCP - General 07/06/09 04/03/11 documented as of this encounter
--- OUTSIDE RECORDS SUMMARY | 2024-05-02 09:57 | XMS_ITS | Encounter Summary ---
Author Organization [facility] Address [address] [place] [address] Care Team Providers Care Hobber Name Role Phone Randell Haji MD Primary Care Provider [phone] Baron Hobson PA-C Primary Care Provider + Encounter Details Date Type Department Care Team (Late st Contact Info) Description 08/14/2021 Lab Requisition [facility] Pathology & Laboratory Medicine - [address] [address] Outr Resulting Lab, Provider Social History Tobacco [...] 4th Generation Negative Negative 08/15/2021 9:26 EDT [facility] Comment:If acute HIV-1 infec tion is suspected in a high risk patient, submit plasma specimen for HIV-1 RNA quantitation test. Blood VENOUS BLOOD / Unknown 08/14/2021 9:35 EDT 08/14/2021 17:02 EDT Narrative [facility] - 08/15/2021 9:26 EDT Fourth Generation assay performed on the [employer]ens [employer] XPT. us Provider Outr Resulting Lab IMMUNOLOGY AND SEROL OGY ORDERABLES Final Result [facility] [address] [place] [address] documented in this encounter Visit Diagnoses Not on filedocumented in this encounter Care Teams Hobber Relationship Specialty Start Date End Date Randell Haji MD [address] [place] [address] PCP - General 04/04/11 12/12/23 Baron Hobson PA-C [address] [place] [address] PCP - General 12/13/23 documented as of this encounter
--- OUTSIDE RECORDS SUMMARY | 2024-05-02 09:57 | XMS_ITS | Encounter Summary ---
Author Organization [facility] Address [address] [place] [address] Care Team Providers Care Fisher Hoop Net Name Role Phone Unknown, Provider Primary Care Provider Unava ilable Encounter Details Date Type Department Care Team (Late st Contact Info) Description 12/24/2003 Results Only [facility] [place] [address] [place] [address] Saurav Barker, MUCK OPERATOR Social History Tobacco Use Types Packs/Day [...] ? YUNG MCNALLY ? Accession #: ? [id number] : ? 1980 (Age: 23) ??F ?Collect Date: ? 12/24/2003 Location: ? [facility] ? Receive Date: ? 12/27/2003 Provider: ?SAURAV BARKER MUCK OPERATOR Copy to: ? Specimen/Source: ?ThinPrep Pap Test, [...] End of Report [facility] MONTIEL 12/24/2003 12/27/2003 us Saurav Barker MUCK OPERATOR PATHOLOGY ORDERABLES Fi nal Result [facility] MONTIEL [address] [place] [address] documented in this encounter Visit Diagnoses Not on filedocumented in this encounter Care Teams Fisher Hoop Net Relationship Specialty Start Date End Date Unknown, Provider, PCP - General 07/06/09 04/03/11 documented as of this encounter
--- OUTSIDE RECORDS SUMMARY | 2024-05-02 09:57 | XMS_ITS | Encounter Summary ---
Author Organization [facility] [place] [address] Care Team Providers Care Systems Development Manager Name Role Phone Baron Hobson Primary Care Provider [phone] Reason for Visit * Reason Onset Date Comments Appointment 03/16/2024 Encounter Details Date Type Department Care Team (Late st Contact Info) Description 03/16/2024 [place] [phone] Dennise Jaimes APRN [facility] [place] [address] Appointment Social History Tobacco Use Types Packs/Day Years [...] encounter Miscellaneous Notes * Telephone Encounter - Elena Lindsey - 03/25/2024 3:00 PM EDT Pt is scheduled on 05/01 at [address] [facility] video with Dennise Jaimes APRN No appt card needed Closing encounter * Telephone Encounter - Elena Lindsey - 03/16/2024 6:36 AM EDT Re- sent MRA order to [facility] through external referral. Once imaging has been scheduled at [facility], pt to re-schedule NS appt with Dennise Jaimes APRN . Updateappt notes with date of imaging. Postponing 1 wk to f/u with [facility] to verify MRA order received/ scheduled. documented in this encounter Plan of Treatment Upcoming Encounters Date Type Department Care Team (Late st Contact Info) Description 07/08/2024 11:00 AM EST Office [place] [address] Clinic, Dr Alfaro Team None documented as of this encounter Visit Diagnoses Not on filedocumented in this encounter Care Teams Systems Development Manager Relationship Specialty Start Date End Date Baron Hobson PA [address] [place] [address] PCP - General Family Medicine 02/01/23 documented as of this encounter
--- OUTSIDE RECORDS SUMMARY | 2024-05-02 09:57 | XMS_ITS | Encounter Summary ---
Author Organization [facility] Address [address] [place] [address] Care Team Providers Care Tennis Centre Manager Name Role Phone Randell Haji MD Primary Care Provider [phone] Encounter Details Date Type Department Care Team (Late st Contact Info) Description 04/04/2011 - 04/04/2011 23:59 EDT Hospital Encounter [address] [address] Amira Steen MD [address] [facility], [address] [place] [phone] Social History Tobacco Use Types Packs/Day Years Used Date Smoking Tobacco: Never Assessed Comments Unknown Sex and Gender Information Value Date Recorded Sex Assigned at Not on file Legal Sex Female 18:33 EST Gender Identity Choose not to disclose 13:02 EDT Sexual Orientation Not on file documented as of this encounter Miscellaneous Notes * Scanned Note-Null - Emt/Dispatcher, Scan - 04/05/2011 1100 EDT documented in this encounter Plan of Treatment Not on file documented as of this encounter Visit Diagnoses Not on filedocumented in this encounter Care Teams Tennis Centre Manager Relationship Specialty Start Date End Date Randell Haji MD [address] [place] [address] PCP - General 04/04/11 12/12/23 documented as of this encounter
--- OUTSIDE RECORDS SUMMARY | 2024-05-02 09:57 | XMS_ITS | Encounter Summary ---
Author Organization [facility] Address [facility] [place] [address] Care Team Providers Care Dry Placer Machine Operator Name Role Phone Baron Hobson Primary Care Provider +1- [phone] Reason for Referral * Diagnostic Test (Routine) - Closed Specialty Diagnoses / Procedures Referred By Contac t Referred To Contact Diagnoses Aneurysm of ophthalmic artery Procedures MRI Angiogram Head wo Contrast (Generic) Dennise Jaimes APRN [facility] [place] [address] [facility], [address] ZOIE JERRY [address] [place] [address] Referral ID Status Reason Start Date Expiration Date V isits Requested Visits Authorized [id number] Closed Specialty Service Requested 03/13/2024 09/11/2025 1 1 Encounter Details Date Type Department Care Team (Late st Contact Info) Description 03/13/2024 Orders [place] [address] Bindu Tamayo RN Aneurysm of ophthalmic artery Social History Tobacco [...] 11:00 AM EST Office [place] [address] Clinic, Dr Alfaro Team None Scheduled Orders Name Type Priority Associated Diagnoses Orde r Schedule MRI Angiogram Head wo Contrast (Generic) Imaging Routine Aneurysm of ophthalmic artery Expected: 03/14/2024, Expires: 06/13/2024 documented as of this encounter Visit Diagnoses Diagnosis Aneurysm of ophthalmic artery Cerebral aneurysm, nonruptured documented in this encounter Care Teams Dry Placer Machine Operator Relationship Specialty Start Date End Date Baron Hobson PA [address] [place] [address] PCP - General Family Medicine 02/01/23 documented as of this encounter
--- OUTSIDE RECORDS SUMMARY | 2024-05-02 09:57 | XMS_ITS | Clinical Summary ---
Author Organization [facility] Address [facility] [place] [address] Care Team Providers Care Account Underwriter Name Role Phone Baron Hobson Primary Care Provider [phone]- [phone] Allergies Active Allergy Reactions Criticality Noted Date [...] 01/10/2024 Aneurysm of ophthalmic artery 11/24/2021 Overview (05/01/2024): The aneurysm was discovered in 2019, R ophthalmic, 3mm. Cerebral angiogram 2019, broad necked, would require flow diverting stent. Followed with serial MRA by Dr. Hernandez. 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 Unclear history of cerebral aneurysm on mother's family. Assessment & Plan (05/01/2024 9:39 AM EST): Unchanged JOAQUIN aneurysm. Discussed low risk of rupture, that treatment could be considered, but given location of R ophthalmic artery based on DSA in 2019, this may be more risky. Currently treatment risk outweighs that of observation. Repeat MRA head 1 year at [facility] in [facility]. Symptoms of SAH reviewed; discussed that it can be challenging to distinguish SAH from other severe h/a, so ok to err on side of caution. Assessment & Plan (12/21/2022 1:45 PM EDT): [...] repeat your MRA in 1 year at [facility]. Please feel free to call in the [...] Encounters Date Type Department Care Team Description 05/01/2024 9:20 AM EST TH Visit (TeleHealth) Neurosurgery at [place] [phone] Dennise Jaimes APRN Aneurysm of ophthalmic artery 04/29/2024 7:55 PM EST Ancillary Procedure Radiology Library at [facility] [place] [address] Dennise Jaimes APRN Arrived 04/15/2024 Telephone Orthopaedics at [place] [phone] Clinic, Dr Alfaro Team 03/16/2024 [place] [address] Yaneth Ramirez RN 03/16/2024 [place] [address] Dennise Jaimes APRN Appointment 03/13/2024 Orders Only Neurosurgery at [place] [phone] Bindu Tamayo RN Aneurysm of ophthalmic artery from Last 3 Months Family History Medical [...] 11:00 AM EST Office [place] [address] Clinic, Dr Alfaro Team None Health Maintenance Due Date Last Done Comments Pneumococcal Vaccine: At-Risk 5-64yrs (1 of 2 - PCV) 0 1988 HIV screen 2000 Hepatitis C Screening 2000 Lipid Screening 2000 Hepatitis B vaccine (0-59 yrs) (1) 2001 Tetanus/Diphtheria/Pertussis Vaccines (1 - Tdap) 09/07 HPV test 2012 PAP Smear 2012 Breast Cancer Share Decision Needed 2022 Breast Cancer screening 2022 10/07/2015 Diabetes Screening (HgbA1C or Glucose) 2022 Covid-19 Vaccine ( - season) 2024 Influenza (Flu) vaccine (1 o f 1 - Influenza standard series) 02/02/2024 Procedures Procedure Name Priority Date/Time Associated Diagnosis Comments FILM LIBRARY STORAGE ONLY MR HEAD Routine 04/29/2024 7:51 PM EST MRI/MRA SCAN 04/29/2024 12:00 AM EST BASIC METABOLIC PANEL STAT 08/12/2018 3:45 PM EDT MAMMO 2D DIGITAL DIAG KENDELL WITH CAD BILATERAL Routine 10/07/2015 12:51 PM EDT Breast pain from Last 3 Months or Most Recently Relevant to Health Maintenance Results * Film Library- Storage Only MR Head (04/29/2024 7:51 PM EST) Narrative [facility] - 04/29/2024 7:51 PM EST This exam is auto-finalizing. It's purpose is for storage only. Dennise Jaimes APRN [facility] FILM LIBRARY ORD ERABLES [place], [place] * Scan Doc: MRI/MRA (04/29/2024 12:00 AM EST) Anatomical Region Laterality Modality Other Narrative 04/29/2024 12:00 AM EST Ordered by an unspecified provider. Scanning Provider MEDIA MGR SCAN EXT O RDR/RSLT * (ABNORMAL) Basic Metabolic Panel (non-fasting) (08/12/2018 3:45 PM EDT) Glucose 85 65 - 199 mg/dL [facility] Comment:Diabetes: >=200 mg/d L plus symptoms Blood Urea Nitrogen 7(L) 8 - 18 mg/dL [facility] Creatinine 0.75 0.70 - 1.20 mg/dL [facility] Sodium 143 135 - 145 mmol/L [facility] Potassium 3.9 3.5 - 5.0 mmol/L [facility] Comment: Please note: ??Patients with WBC >100,000 may have falsely elevated Potassium levels. ??For accurate Potassium quantification in these patients send serum separator tube (gold top) for subsequent determinations. ??Contact the Clinical Chemistry Laboratory if there are any questions. Chloride 103 98 - 107 mmol/L [facility] Carbon Dioxide 26 22 - 31 mmol/L [facility] Anion Gap 14 5 - 15 mmol/L [facility] Calcium 10.0 8.5 - 10.5 mg/dL [facility] Est Glomerular Filtration Rate 103 >=60 mL/min/1. 73 m?? [facility] Comment: The eGFR was calculated using the CKD-EPI equation. As with all creatinine based estimates of kidney function, eGFR values calculated with the CKD-EPI equation are not accurate in patients with acute kidney failure, extremes of body mass or the acutely ill. [email or web address] eGFR 120 >=60 mL/min/1. 73 m?? [facility] Comment: The eGFR was calculated using the CKD-EPI equation. As with all creatinine based estimates of kidney function, eGFR values calculated with the CKD-EPI equation are not accurate in patients with acute kidney failure, extremes of body mass or the acutely ill. [email or web address] Blood specimen (specimen) 08/12/2018 3:45 PM EDT 08/12/2018 4:15 PM EDT Narrative Resulting Agency Comment Spec In Lab Nathaniel Venegas MD CHEMISTRY ORDERABLES [facility] [place] [address] * Mammo Diag Kendell Bilateral (10/07/2015 12:51 [...] capacity to make decision: Yes Care Teams Account Underwriter Relationship Specialty Start Date End Date Baron Hobson PA [address] [place] [address] PCP - General Family Medicine 02/01/23
--- OUTSIDE RECORDS SUMMARY | 2024-05-02 09:57 | XMS_ITS | Encounter Summary ---
Author Organization [facility] Address [address] [place] [address] Care Team Providers Care Lawyer Criminal Name Role Phone Unknown, Provider Primary Care Provider Unava ilable Encounter Details Date Type Department Care Team (Late st Contact Info) Description 07/07/2009 7:41 EST - 07/07/2009 12:38 EST Hospital Encounter [facility] Perioperative Services- [address] [address] Ryan Thompson MD [address] [facility], Level [address] [place] [address] Discharge Disposition: Discharged to Other Facility Social [...] to be transported via ambulance back to [facility]. 1038--Dr Thompson in to speak to pt. Pt not required to void [facility]--Phone call from Dr Haji, referred to Dr Thompson fro questions re: Pt's disposition home vs. [facility] 1139--oral care given 1145--taking ice chips 1205--notified Dr Velez of headache, she will write order 1228--report to Amrita Esquivel RN of [facility] who will accompany pt in transport. IV saline locked for fluids in transit. Nose ring and pj pant returned to pt 1238--transferred out of PACU back to [facility] via ambulance service documented in this encounter Procedure Notes * Inpatient, Physician - 07/12/2009827 ESTAssociated Order(s): ORDERS - SCANNED * Inpatient, Physician - 07/12/2009827 EST * Inpatient, Physician - 07/12/2009827 ESTAssociated Order(s): ECG REPORT - SCANNED * [...] 07/12/2009 8:28 EST Physician Inpatient MD PROCEDURE/MINOR SURGICAL ORDERABLES Final Result * ORDERS - SCANNED (07/12/2009 8:28 EST) 07/12/2009 8:28 EST Narrative 07/12/2009 9:57 EST Ordered by an unspecified provider. Transcriptions Inpatient, Physician - 07/12/2009 8:28 EST Physician Inpatient MD ADMISSION ORDERABLES Radha l Result * [place] ERCP BILIARY SYSTEM (07/07/2009 9:54 [...] operative findings. Ryan Thompson MD IMG FLUOROSCOPY ORDERABLES Final Result documented in this encounter Visit Diagnoses Not on filedocumented in this encounter Administered Medications Inactive Administered Medications - up to 3 most recent administrations Medication Order MAR Action Action Date Dose Rate Site acetaminophen (TYLENOL) tablet 650 mg 650 mg, oral, EVERY 4 HOURS PRN, Starting on Dasha 2/10 at 1214, Until Dasha 2/10 at 1457, Pain, Routine Given 07/07/2009 12:23 EST 650 mg lactated ringers (LR) infusion at 75 mL/hr, intravenous, CONTINUOUS, Starting on Dasha 2/10 at 1000, Until Dasha 2/10 at 1457, Routine, Recovery (only) New Bag 07/07/2009 11:40 EST 75 mL/hr Rate Documented 07/07/2009 10:01 EST 75 mL/hr documented in this encounter Active and Recently Administered Medications Times are shown in EST. Continuous Medication Order 07/05/2009 07/06/2009 07/07/2009 lactated ringers (LR) infusion (CANCELED) at 75 mL/hr, intravenous, CONTINUOUS, Starting on Dasha 210 at 1000, Until Dasha 10 at 1457, Routine, Recovery (only) 1001 (Rate Documente d - Provider: Susan Meneses)1140 (New Bag - Provider: Susan Meneses) PRN Medication Order 07/05/2009 07/06/2009 07/07/2009 acetaminophen (TYLENOL) tablet 650 mg (CANCELED) 650 mg, oral, EVERY 4 HOURS PRN, Starting on Dasha 210 at 1214, Until Dasha 210 at 1457, Pain, Routine 1223 (Given - [...] 07/07/2009 documented in this encounter Care Teams Lawyer Criminal Relationship Specialty Start Date End Date Unknown, Provider, PCP - General 07/06/09 04/03/11 documented as of this encounter
--- OUTSIDE RECORDS SUMMARY | 2024-05-02 09:57 | XMS_ITS | Encounter Summary ---
Author Organization [facility] [place] [address] Care Team Providers Care Managed Care Liaison Name Role Phone Baron Hobson Primary Care Provider [phone]- [phone] Encounter Details Date Type Department Care Team (Late st Contact Info) Description 04/15/2024 [place] [id number] Clinic, Dr Alfaro Team None Social History Tobacco Use Types Packs/Day Years [...] encounter Miscellaneous Notes * Telephone Encounter - Juany Doe - 04/15/2024 9:49 AM EST Reviewed with Dianne Small PA-C. Would like to see patient back. No MRI at this point. Returned call to patient to let her know. No other questions or concerns. * Telephone Encounter - Juany Doe - 04/15/2024 8:50 AM EST Returned call to patient. She was seen on 08/14/[address] Alfaro team. Patient with PF degenerative joint disease. Has been doing PT but no improvement. Increased muscle spasms, experiencing locking and buckling and pain in the joint. Would like to get a MRI and follow up as scheduled. Plan: review with Dr. Alfaro team if MRI is indicated. If MRI indicated she would like to get this done at [facility]. Will return call to patient. * Telephone Encounter - Liset Blanco - 04/15/2024 8:12 AM EST Caller: Holly Mcnally Best Return Contact: [phone] Appointment: 04/15/20 cancelled due to her children being ill. Provider: Dr. Alfaro Questions: She would like Dr. Alfaro to order an MRI, she rescheduled her appointment to July, she could not come for the June opening and she is on the wait list. She declined an appointment with an associate provider and would like her appointment with Dr. Alfaro only. documented in this encounter Plan of Treatment Upcoming Encounters Date Type Department Care Team (Late st Contact Info) Description 07/08/2024 11:00 AM EST [place] [address] Clinic, Dr Alfaro Team None documented as of this encounter Visit Diagnoses Not on filedocumented in this encounter Care Teams Managed Care Liaison Relationship Specialty Start Date End Date Baron Hobson PA [address] [place] [address] PCP - General Family Medicine 02/01/23 documented as of this encounter
--- OUTSIDE RECORDS SUMMARY | 2024-05-02 09:57 | XMS_ITS | Encounter Summary ---
Author Organization [facility] Address [address] [place] [address] Care Team Providers Care Material Spreader Name Role Phone Randell Haji MD Primary Care Provider [phone] Encounter Details Date Type Department Care Team (Late st Contact Info) Description 06/16/2014 Results Only [facility] Laboratory Services - [facility] ([facility]) [address] [place], [place] [address] Rachelle Hough MD [address] [place] [address] [address] [place], [place] [id number] Social History Tobacco Use Types Packs/Day Years [...] ? YUNG MCNALLY ? Accession #: ? [id number] ? : ? 1980 (Age: 33) ??F [...] lumen throughout. ??Entirely submitted in B1-B5. Veda Hernandez 06/17/2014 09:59 AM End of Report [facility] 06/16/2014 8:15 EST 06/17/2014 8:15 EST us Rachelle Hough MD PATHOLOGY ORDERABLES Final Resul t [facility] [address] [place] [address] documented in this encounter Visit Diagnoses Not on filedocumented in this encounter Care Teams Material Spreader Relationship Specialty Start Date End Date Randell Haji MD [address] [place] [address] PCP - General 04/04/11 12/12/23 documented as of this encounter
--- OUTSIDE RECORDS SUMMARY | 2024-05-02 09:57 | XMS_ITS | Encounter Summary ---
Author Organization [facility] Address [address] [place] [address] Care Team Providers Care Color Paste Mixing Supervisor Name Role Phone Randell Haji MD Primary Care Provider [phone] Encounter Details Date Type Department Care Team (Late st Contact Info) Description 06/10/2014 Results Only [facility] Laboratory Services - [facility] ([facility]) [address] [place], [place] [id number] Rachelle Hough MD [address] [place] [address] [address] [place], [place] [id number] Social History Tobacco Use Types Packs/Day Years [...] ? YUNG MCNALLY ? Accession #: ? [id number] ? : [...] Document reviewed and electronically signed by: ? Kell Banerjee, [place](ASCP) ? Report ??Date: 06/17/2014 10:14 HPV with Pap Test ? Date Ordered: ? 06/17/2014 ? Status: ?? Signed Out ?Date Complete: ? 06/21/2014 ? By: ??System Interface ? Date Reported: ? 06/21/2014 ? Interpretation RESULT: Negative for HPV. No E6 or E7 mRNA is detected from HPV types 16,18,31,33,35, 39,45,51,52,56,58, 59,66, and 68 by manager retail store mediated amplification. Comments Document reviewed and electronically signed by: ? System Interface ? Report date: 06/21/2014 By the signature above, the attending physician certifies that he/she has personally conducted a gross and/or microscopic examination of the described specimens and rendered or confirmed the above diagnosis. End of Report [facility] 06/10/2014 06/14/2014 us Rachelle Hough MD PATHOLOGY ORDERABLES Final Resul t [facility] [address] [place] [address] documented in this encounter Visit Diagnoses Not on filedocumented in this encounter Care Teams Color Paste Mixing Supervisor Relationship Specialty Start Date End Date Randell Haji MD [address] [place] [address] PCP - General 04/04/11 12/12/23 documented as of this encounter
--- OUTSIDE RECORDS SUMMARY | 2024-05-02 09:57 | XMS_ITS | Encounter Summary ---
Author Organization [facility] Address [address] [place] [address] Care Team Providers Care Clinical Transplant Coordinator Name Role Phone Randell Haji MD Primary Care Provider [phone] Baron Hobson PA-C Primary Care Provider + Encounter Details Date Type Department Care Team (Late st Contact Info) Description 01/10/2021 Lab Requisition [facility] Pathology & Laboratory Medicine - [address] [address] Outr Resulting Lab, Provider Social History Tobacco [...] Comments ZZCOVID-19 TEST [facility] PCR Today 01/10/2021 14:30 EDT COVID-19 TESTING Routine 01/10/2021 14:3 0 EDT documented in this encounter Results * COVID-19 TEST [facility] PCR (01/10/2021 14:30 EDT) Swab ENTIRE NASOPHARYNX / Unknown 01/10/2021 14:30 EDT 01/11/2021 15:40 EDT us Provider Outr Resulting Lab MICROBIOLOGY - GENER AL ORDERABLES Final Result Performing Organization Address [facility] Co de Phone Number [facility] [address] [place] [address] * COVID-19 TESTING (01/10/2021 14:30 EDT) COVID-19 rt-PCR Result Negative Negative 01/12/2021 12:23 EDT [facility] Comment: This test [...] performed using the enoch SARS-CoV-2 assay ([employer] on the Enoch 6800 System Performing Lab [address]ch [address] [facility] Lab 01/12/2021 12:23 EDT [facility] Swab 01/10/2021 14:3 0 EDT 01/11/2021 15:40 EDT us Provider Outr Resulting Lab MICROBIOLOGY - GENER AL ORDERABLES Final Result Performing Organization Address [facility] Co de Phone Number [facility] [address] [place] [address] documented in this encounter Visit Diagnoses Not on filedocumented in this encounter Care Teams Clinical Transplant Coordinator Relationship Specialty Start Date End Date Randell Haji MD [address] [place] [address] PCP - General 04/04/11 12/12/23 Baron Hobson PA-C [address] [place] [phone] PCP - General 12/13/23 documented as of this encounter
--- OUTSIDE RECORDS SUMMARY | 2024-05-02 09:57 | XMS_ITS | Encounter Summary ---
[place] [address] Care Team Providers Care Set Up Mechanic Crown Assembly Machine Name Role Phone Baron Hobson Primary Care Provider [phone] Encounter Details Date Type Department Care Team (Latest Contact Info) Description 01/10/2024 1:25 PM EDT Laboratory Appointment Lab [address] [place] [address] Thyroid nodule Social History Tobacco Use Types [...] 11:00 AM EST [place] [address] Clinic, Dr Alfaro Team None documented as of this encounter Procedures Procedure Name Priority Date/Time Associated Diagnosis Comments TSH CASCADE Routine 01/10/2024 12:20 PM EDT Thyroid nodule documented in this encounter Results * TSH [place] (01/10/2024 12:20 PM EDT) Thyroid Stimulating Hormone 1.80 0.27 - 4.20 mcIU/mL 01/10/2024 1:18 PM EDT [facility] Comment: Reference Interval (mcIU/mL): ?? Females: ? First Trimester: 0.23-3.88 ? Second Trimester: 0.22-3.90 ? Third Trimester: 0.44-4.66 Blood VENOUS BLOOD SPECIMEN / Unknown Venipuncture / Unknown 01/10/2024 12:20 PM EDT 01/10/2024 12:20 PM EDT Poncho De La Cruz MD CHEMISTRY ORDERABLES [facility] [place] [address] documented in this encounter Visit Diagnoses Diagnosis Thyroid nodule Nontoxic uninodular goiter documented in this encounter Care Teams Set Up Mechanic Crown Assembly Machine Relationship Specialty Start Date End Date Baron Hobson PA [address] [place] [address] PCP - General Family Medicine 02/01/23 documented as of this encounter
--- OUTSIDE RECORDS SUMMARY | 2024-05-02 09:57 | XMS_ITS | Encounter Summary ---
Author Organization [facility] Address [address] [place] [address] Care Team Providers Care Hatchery Supervisor Name Role Phone Randell Haji MD Primary Care Provider [phone] Encounter Details Date Type Department Care Team (Late st Contact Info) Description 03/25/2015 Results Only [facility] [phone] Cande Tejada MD [address] [place], [place] [address] [address] Social History Tobacco Use Types Packs/Day [...] ? YUNG MCNALLY ? Accession #: ? [id number] ? : ? 1980 (Age: 34) ??F [...] lobulated adipose tissue. No masses are identified. Forestry Adviser sections are submitted as 1 and 2. Time removed from patient: 1010 hrs on 03/25/2015 Time in formalin: 1100 hrs on 03/25/2015 Time out of formalin: 1900 hrs on 03/28/2015 Ashwini Villa 03/28/2015 11:54 AM End of Report [facility] 03/25/2015 8:36 EDT 03/28/2015 8:36 EDT us Cande Tejada MD PATHOLOGY ORDERABLES Final Resu lt [facility] [address] [place] [address] documented in this encounter Visit Diagnoses Not on filedocumented in this encounter Care Teams Hatchery Supervisor Relationship Specialty Start Date End Date Randell Haji MD [address] [place] [address] PCP - General 04/04/11 12/12/23 documented as of this encounter
--- OUTSIDE RECORDS SUMMARY | 2024-05-02 09:58 | XMS_ITS | Encounter Summary ---
[place] [address] Care Team Providers Care Youth Leader Name Role Phone Terri Thrasher NAMRATA Primary Care Provider + Reason for Referral * Diagnostic Test (Routine) - Closed Specialty Diagnoses / Procedures Referred By Contac t Referred To Contact Radiology Diagnoses Cerebral aneurysm without rupture Procedures IR Arteriogram Cerebral [facility] [place] Neuro[facility] [address] [place] [address] [facility] [place] [address] Referral ID Status Reason Start Date Expiration Date V isits Requested Visits Authorized [id number] Closed Specialty Service Requested 09/08/2018 09/08/2019 1 1 Reason for Visit * Diagnostic Test (Routine) - Closed Specialty Diagnoses / Procedures Referred By Contac t Referred To Contact Radiology Diagnoses Cerebral aneurysm without rupture Procedures IR Arteriogram Cerebral [facility] [place] Neurosurgery [address] [place] [address] [facility] [place] [address] Referral ID Status Reason Start Date Expiration Date V isits Requested Visits Authorized [id number] Closed Specialty Service Requested 09/08/2018 09/08/2019 1 1 Encounter Details Date Type Department Care Team (Latest Contact Info) Description 10/07/2018 6:41 AM EDT - 10/07/2018 11:59 PM EDT Hospital Encounter [place] [address] Eugenio Hernandez MD [facility] [place] [address] Pre-op testing; Facial droop; Cerebral aneurysm without [...] Ojeda RN - 10/07/2018 8:39 AM EDT [facility] Interventional Radiology Post Angiography Instructions Procedure: [...] hoildays, call and ask for the residential assistant clinical operations consultant. OR Vascular Department at until 4:45pm. After 4:45pm call [phone] and ask for the Vascular resident clinical operations consultant. 10. If you are a diabetic and [...] documented in this encounter Progress Notes * TammyLul - 10/07/2018 8:57 AM EDT INTERVENTIONAL RADIOLOGY BRIEF PROCEDURE NOTE Patient Name: Yung Mcnally : 1980 Case Date: 10/07/2018 Operators: Attending: Shani Hernandez Fellow: Tammy Indication: Patient is a 37 y.o. 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 Name of Procedure Performed: Diagnostic cerebral angiography Brief description of the procedure: ?? R SPECIAL PROCEDURES TECHNOLOGIST access ?? R ICA selection and cerebral [...] : 1980 AGE: 38 y.o. ?? Address: [address] [address] (home) Mobile: Telephone Information: ?? Referring Provider: Eugenio Hernandez REASON FOR VISIT: Diagnostic cerebral angiogram Order Questions Answers Where will study be performed? [facility] [120] Is the patient on anticoagulant [...] Dot Garcia APRN ? * Lul Munoz - 10/07/2018 7:16 AM EDT INTERVENTIONAL RADIOLOGY [...] 11:00 AM EST Office [place] [address] Clinic, Dr Alfaro Team None [...] below. ? Electronically signed by: Eugenio Hernandez [facility] ([phone]), at 10/21/2018 5:57 PM Narrative 10/21/2018 5:57 [...] 125 cm Glidewire, 0.035 inch J-wire, 5 Zimbabwean Madison sheath, 5Fr vert catheter, Mynx vascular closure device. TECHNIQUE: The patient was brought to the angiography suite. The right groin was sterilely prepped and draped. Using micropuncture set, the femoral artery was accessed and the 5 Zimbabwean pinnacle sheath was placed, and double flushed. 5 Zimbabwean vert catheter was positioned in the descending [...] 0.035 125 cm Glidewire, 0.035 inch J-wire,5 Zimbabwean Madison sheath, 5Fr vert catheter, Mynx vascular closure device. TECHNIQUE: The patient was brought to the angiography suite. The rightgroin was sterilely prepped and draped. Using micropuncture set, the femoral arterywas accessed and the 5 Zimbabwean pinnacle sheath was placed, and double flushed.5 Zimbabwean vert catheter was positioned in the descending [...] contact the number below. Eugenio Hernandez MD IM IR ORDERABLES * Platelet count (10/07/2018 6:35 AM EDT) Platelet 292 145 - 357 x10(3)/mc L [facility] Immature Plt % 1.5 0.0 - 7.4 % [facility] Comment: Limitation of the Immature Platelet Fraction (IPF)-May be less reliable when the platelet count is less than 71w203/uL due to statistical imprecision. The IPF value [...] in a decreased state of production. References: [employer] The Clinical Value of the Immature Platelet Fraction (IPF) in Cell Recovery Document Number 10-1143 11/2010 [employer] The Role of the Immature Platelet Fraction (IPF) in the Differential Diagnosis of Thrombocytopenia, Document MKT-[id number] V05 P05/14 Blood specimen (specimen) 10/07/2018 6:35 AM EDT 10/07/2018 7:10 AM EDT Narrative Resulting Agency Comment Spec In Lab Eugenio Hernandez MD HEMATOLOGY ORDERABLE S [facility] [place] [address] documented in this encounter Visit Diagnoses Diagnosis [...] at 0738, Until Sat10/07/18 at 0755, JAIDEN OJEAD: cabinet override midazolam (PF) (VERSED) multi-dose injection [...] mLs documented in this encounter Care Teams Youth Leader Relationship Specialty Start Date End Date Terri Thrasher APRN PCP - General Family Medicine 08/01/18 02/14/21 documented as of this encounter
--- OUTSIDE RECORDS SUMMARY | 2024-05-02 09:58 | XMS_ITS | Encounter Summary ---
Author Organization [facility] [place] [address] Care Team Providers Care Grinding Machine Tender Name Role Phone Claudia vance NAMRATA Primary Care Provider [phone] Encounter Details Date Type Department Care Team (Late st Contact Info) Description 11/24/2021 Telephone [place] [address] Dennise Jaimes APRN [facility] [place] [address] Social History Tobacco Use Types Packs/Day Years [...] 11:00 AM EST Office [place] [address] Clinic, Dr Alfaro Team None documented as of this encounter Visit Diagnoses Not on filedocumented in this encounter Care Teams Grinding Machine Tender Relationship Specialty Start Date End Date Claudia Belle APRN [address] [place] [address] PCP - General Family Medicine 11/11/21 02/23/22 documented as of this encounter
--- OUTSIDE RECORDS SUMMARY | 2024-05-02 09:58 | XMS_ITS | Encounter Summary ---
[place] [address] Care Team Providers Care Professor Of Political Science Name Role Phone Terri Thrasher NAMRATA Primary Care Provider + Reason for Referral * Diagnostic Test (Routine) - Closed Specialty Diagnoses / Procedures Referred By Jesika maddox Referred To Contact Radiology Diagnoses Cerebral aneurysm without rupture Procedures MRI Angiogram Head wo Contrast (Generic) [facility] [address] [place] [address] [facility] [place] [address] Referral ID Status Reason Start Date Expiration Date V isits Requested Visits Authorized [id number] Closed Specialty Service Requested 08/17/2019 02/16/2021 1 1 Encounter Details Date Type Department Care Team (Late st Contact Info) Description 08/17/2019 [place] [address] Mallory Delgado RN Cerebral aneurysm [...] 11:00 AM EST [place] [address] Clinic, Dr Alfaro Team None documented as [...] below. ? Electronically signed by: Lillian Farnsworth [facility] ([phone]), at 11/11/2019 3:32 PM Narrative 11/11/2019 3:32 [...] number below. Electronically signed by: ROSETTA Tavares [facility] ([phone]),at 11/11/2019 3:32 PM Eugenio Hernandez MD IMG MRI ORDERABLES documented in this encounter Visit Diagnoses Diagnosis Cerebral aneurysm without rupture Cerebral aneurysm, nonruptured Cerebral aneurysm without rupture Cerebral aneurysm, nonruptured documented in this encounter Care Teams Professor Of Political Science Relationship Specialty Start Date End Date Terri Thrasher, NAMRATA PCP - General Family Medicine 08/01/18 02/14/21 documented as of this encounter
--- OUTSIDE RECORDS SUMMARY | 2024-05-02 09:58 | XMS_ITS | Encounter Summary ---
Author Organization [facility] [place] [address] Care Team Providers Care Lamina Searcher Name Role Phone Lashawn Mcnally NAMRATA Primary Care Provider [phone] Encounter Details Date Type Department Care Team (Late st Contact Info) Description 10/10/2021 Telephone Neurosurgery at [facility] [place] [address] Delma Jaimes Social History Tobacco Use Types [...] caller: Any Best number to reach caller: [phone] Reason for call: Pt calling to schedule [...] 11:00 AM EST Office [place] [address] Clinic, Dr Alfaro Team None documented as of this encounter Visit Diagnoses Not on filedocumented in this encounter Care Teams Lamina Searcher Relationship Specialty Start Date End Date Lashawn Mcnally APRN [address] [place] [address] PCP - General Family Medicine 02/15/21 11/10/21 documented as of this encounter
--- OUTSIDE RECORDS SUMMARY | 2024-05-02 09:58 | XMS_ITS | Encounter Summary ---
Author Organization [facility] [place] [address] Care Team Providers Care Generator Switchboard Operator Name Role Phone Terri Thrasher NAMRATA Primary Care Provider + Encounter Details Date Type Department Care Team (Late st Contact Info) Description 09/24/2018 [place] [address] Candace Hollingsworth TIPPING MACHINE OPERATOR [facility] [place] [address] Social History Tobacco Use Types Packs/Day Years [...] EDT Telephone note: Called by Nguyen Jones BOAT JOINER regarding patient Holly Mcnally. [place] [facility] [place]/o headache with visual disturbance (black [...] Hold anticoagulation/antiplatelets therapys (not currently on any) BOAT JOINER Robert was agreeable with this plan. We are available for any further questions or concerns. Candace Hollingsworth APRN documented in this encounter Plan of Treatment Upcoming Encounters Date Type Department Care Team (Late st Contact Info) Description 07/08/2024 11:00 AM EST [place] [address] Clinic, Dr Alfaro Team None documented as of this encounter Visit Diagnoses Not on filedocumented in this encounter Care Teams Generator Switchboard Operator Relationship Specialty Start Date End Date Terri Thrasher APRN PCP - General Family Medicine 08/01/18 02/14/21 documented as of this encounter
--- OUTSIDE RECORDS SUMMARY | 2024-05-02 09:58 | XMS_ITS | Encounter Summary ---
Author Organization [facility] [place] [address] Care Team Providers Care Ore Charger Name Role Phone Terri Thrasher NAMRATA Primary Care Provider + Reason for Visit * Reason Comments Nicotine Dependence * Consultation (Routine) - Closed Specialty Diagnoses / Procedures Referred By Contac t Referred To Contact Thoracic Surgery Diagnoses Nicotine dependence, cigarettes, uncomplicated Tobacco abuse counseling Eugenio Hernandez MD [facility] [place] [address] Dot Garcia APRN [facility] [place] [address] Referral ID Status Reason Start Date Expiration Date V isits Requested Visits Authorized [id number] Closed Consult, Test & Treat 09/03/2018 09/03/2019 1 1 Encounter Details Date Type Department Care Team (Late st Contact Info) Description 09/16/2018 12:30 PM EDT Office [place] [address] Dot Garcia APRN [facility] [place] [address] Nicotine dependence, cigarettes, uncomplicated; Tobacco abuse counseling [...] Nicotine Replacement Therapy , September 02, 2012: https://www.federalregister.gov/articles//2013-17538/modifications-to- icnwslqk-ou-wpswylsg-xqygusdgbto-ynbuyjf-sboaeaps-wvw-soqn-yiw-eelvsxl-figvw-ifz documented in this encounter Progress Notes * Dot Garcia APRN - 09/16/2018 12:30 PM EDT Thoracic Surgery - Tobacco Cessation Consultation Dot Garcia APRN [place] [address] FAX: HPI: Holly Mcnally is a 38 [...] file Gets together: Not on file Attends baptism service: Not on file Active member of [...] in places where it is forbidden ex [facility] No Yes ? 0 3. Which [...] APRN 09/16/18 Thoracic Surgery - Tobacco Cessation [facility] documented in this encounter Plan of Treatment Upcoming Encounters Date Type Department Care Team (Late st Contact Info) Description 07/08/2024 11:00 AM EST Office [place] [address] Clinic, Dr Alfaro Team None documented as of this encounter Visit Diagnoses Diagnosis Nicotine dependence, cigarettes, uncomplicated Tobacco abuse counseling Counseling on substance use and abuse documented in this encounter Care Teams Ore Charger Relationship Specialty Start Date End Date Terri Thrasher APRN PCP - General Family Medicine 08/01/18 02/14/21 documented as of this encounter
--- OUTSIDE RECORDS SUMMARY | 2024-05-02 09:58 | XMS_ITS | Encounter Summary ---
Author Organization [facility] Address [facility] [place] [address] Care Team Providers Care Legal Adviser Name Role Phone Terri Thrasher NAMRATA Primary Care Provider + Reason for Referral * Chiropractic (Routine) - Specialty Diagnoses / Procedures Referred By Jesika maddox Referred To Contact Diagnoses Cervicogenic headache Huang Nicole MD [facility] [place] [address] Referral ID Status Reason Start Date Expiration Date V isits Requested Visits Authorized [id number] Consult, Test & Treat 10/28/2018 04/26/2019 1 1 Reason for Visit * Consultation (Routine) - Closed Specialty Diagnoses / Procedures Referred By Jesika t Referred To Contact Neurology Mil Darby MD [facility] [place] [address] [facility] Neu[facility] [address] [place] [address] Referral ID Status Reason Start Date Expiration Date V isits Requested Visits Authorized [id number] Closed Consult, Test & Treat 08/12/2018 08/12/2019 1 1 Encounter Details Date Type Department Care Team (Late st Contact Info) Description 10/28/2018 9:45 AM EDT [place] [address] Huang Nicole MD [facility] [place] [address] Cervicogenic headache; Gillette palsy; Brain aneurysm Social [...] - 10/28/2018 9:45 AM EDT NEUROLOGY CLINIC [facility] [place] [address] 10/28/2018 Patient name: Holly Mcnally Date of : 1980 Referring provider: Mil Darby MD [facility] [place] [address] HISTORY ?? REASON FOR REFERRAL/CHIEF COMPLAINT: Headache [...] MRI / CT Scan and ultrasound at [facility] . She feels test results were [...] IR Arteriogram Cerebral 10/07/2018 Eugenio Hernandez MD 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 Smokes 8 cigarettes a day. No alcohol. [...] GENERAL THYROID: No results found for: TSH, R3UFBTB, FREET4, TT4, THYROIDAB, THGAB FolateNo results found for: SFOLATE ESRNo results found for: SEDRATE CRPNo results found for: CRP B12No results found for: VMUCVXPJ98 CKNo results found for: CK Angiotensin ConvertaseNo [...] LDLCHOL, LDLDIRECT JODIE 65No results found for: RAI64KW ANTI GM1,ANTI SGPG, MAG@RESUFAST (MAGAUTOAB,SGPG,MAGWB,GM1AB)@ HEAVY METAL [...] ANNA1, ANNA2, ANNA3, AGNA1, PCA1, PCA2, PCATYPETR, AMPHIPHYSIN,REWA2ZZZ, STRIATMSCLAB, CACHABPQTYPE, CACHABNTYPE, ACHRBINDAB, NEUROKCHAB, NMDARECEPTOR, QDX28GJ THROMBOSIS HOMEOCYSTEINENo results found for: HOMOCYSTEINE THROMBOSIS PANELNo results found for: ACAIGM, Q3NNHOUELYE FACTOR V LEIDEN No components found for: [...] of recent MRI and othertesting done at [facility]. IMPRESSION: ?? Cervicogenic headaches and migraines [...] and obtain recent imaging and labs from [facility]. Will consider additional testing as needed based on it. Follow up in 3 months. Huang Nicole MD Department of Neurology [facility] documented in this encounter Plan of Treatment Upcoming Encounters Date Type Department Care Team (Late st Contact Info) Description 07/08/2024 11:00 AM EST Office [place] [address] Clinic, Dr Alfaro Team None Scheduled Referrals Name Type Priority Associated Diagnoses Order Schedule Referral to Chiropractic Outpatient Referral Routine Cervicogenic headache Ordered: 10/28/2018 documented as of this encounter Visit Diagnoses Diagnosis Cervicogenic headache Headache Gillette palsy Gillette's palsy Brain aneurysm Cerebral aneurysm, nonruptured documented in this encounter Care Teams Legal Adviser Relationship Specialty Start Date End Date Terri Thrasher APRN PCP - General Family Medicine 08/01/18 02/14/21 documented as of this encounter
--- OUTSIDE RECORDS SUMMARY | 2024-05-02 09:58 | XMS_ITS | Encounter Summary ---
Author Organization [facility] [place] [address] Care Team Providers Care Contact And Service Clerks Supervisor Name Role Phone Lashawn Mcnally APRN Primary Care Provider Reason for Visit * Consultation (Routine) - Closed Specialty Diagnoses / Procedures Referred By Jesika maddox Referred To Contact Endocrinology Diagnoses Nontoxic single thyroid nodule BILAT THYROID NODULES Lashawn Mcnally APRN [address] [place] [address] [facility] Endocrinology [address] [place] [address] Referral ID Status Reason Start Date Expiration Date V isits Requested Visits Authorized [id number] Closed Consult, Test & Treat [facility] PCP Updated and/or Approved 02/07/2021 02/07/2022 12 12 Encounter Details Date Type Department Care Team (Late st Contact Info) Description 09/05/2021 11:00 AM EDT Office [place] [address] Hector Navas, [facility] [place] [address] Multinodular goiter Social History Tobacco Use Types [...] these were done just last month at [facility]. Review of Systems: Review of Systems [...] IR Arteriogram Cerebral 10/07/2018 Eugenio Hernandez MD [facility] INTERVENTIONL RAD Social History Socioeconomic History [...] We will try to obtain these from [facility]. Bedside ultrasound today reveals bilateral mixed [...] included. ENDOCRINOLOGY THYROID ULTRASOUND REPORT Patient:Holly Mcnally, [id number] Date of exam: 09/06/2021 Indication: thyroid nodule Comparison: 01/31/21 Performed by: Hector Navas DO, Real time images of the thyroid gland were obtained using a [employer] US machine. All measurements are given as [...] 11:00 AM EST Office [place] [address] Clinic, Dr Alfaro Team None documented as of this encounter Visit Diagnoses Diagnosis Multinodular goiter Nontoxic multinodular goiter documented in this encounter Care Teams Contact And Service Clerks Supervisor Relationship Specialty Start Date End Date Lashawn Mcnally APRN [address] [place] [address] PCP - General Family Medicine 02/15/21 11/10/21 documented as of this encounter
--- OUTSIDE RECORDS SUMMARY | 2024-05-02 09:58 | XMS_ITS | Encounter Summary ---
[place] [address] Care Team Providers Care Teacher Theater Arts Name Role Phone Baron Hobson Primary Care Provider [phone] Encounter Details Date Type Department Care Team [...] 11:00 AM EST Office [place] [address] Clinic, Dr Alfaro Team None documented as of this encounter Visit Diagnoses Not on filedocumented in this encounter Care Teams Teacher Theater Arts Relationship Specialty Start Date End Date Baron Hobson PA [address] [place] [address] PCP - General Family Medicine 02/01/23 documented as of this encounter
--- OUTSIDE RECORDS SUMMARY | 2024-05-02 09:58 | XMS_ITS | Encounter Summary ---
[place] [address] Care Team Providers Care Sourcing Consultant Name Role Phone Baron Hobson Primary Care Provider +- [phone] Encounter Details Date Type Department Care Team (Late st Contact Info) Description 02/01/2023 Transcribe Orders eDH Incoming Referrals [phone] Baron Hobson PA [address] [place], [place] [address] Social History Tobacco Use Types Packs/Day Years [...] 11:00 AM EST Office [place] [address] Clinic, Dr Alfaro Team None documented as of this encounter Visit Diagnoses Not on filedocumented in this encounter Care Teams Sourcing Consultant Relationship Specialty Start Date End Date Baron Hobson PA [address] [place] [address] PCP - General Family Medicine 02/01/23 documented as of this encounter
--- OUTSIDE RECORDS SUMMARY | 2024-05-02 09:58 | XMS_ITS | Encounter Summary ---
Author Organization [facility] [place] [address] Care Team Providers Care Stove Cleaner Name Role Phone Terri Thrasher APRN Primary Care Provider + Encounter Details Date Type Department Care Team (Late st Contact Info) Description 01/22/2021 6:45 PM EDT Ancillary Procedure Radiology Library at [facility] [place] [address] Timmy Altman MD [place] [address] Social History Tobacco Use Types Packs/Day Years [...] 11:00 AM EST Office Visit Orthopaedics at [facility] [place] [address] Clinic, Dr Alfaro Team None documented as of this encounter Procedures Procedure Name Priority Date/Time Associated Diagnosis Comments FILM LIBRARY STORAGE ONLY CT HEAD AND SPINE Routine 01/22/2021 6:43 PM EDT documented in this encounter Results * Film Library- Storage Only CT Head And Spine (01/22/2021 6:43 PM EDT) Narrative RAD - 01/22/2021 6:43 PM EDT This exam is auto-finalizing. It's purpose is for storage only. Timmy Altman MD IMG FILM LIBRARY ORD ERABLES [place], [place] documented in this encounter Visit Diagnoses Not on filedocumented in this encounter Care Teams Stove Cleaner Relationship Specialty Start Date End Date Terri Thrasher, SLEDGER PCP - General Family Medicine 08/01/18 02/14/21 documented as of this encounter
--- OUTSIDE RECORDS SUMMARY | 2024-05-02 09:58 | XMS_ITS | Encounter Summary ---
Author Organization [facility] [place] [address] Care Team Providers Care Bond Clerk Name Role Phone Baron Hobson Primary Care Provider [phone] Reason for Referral * Psychiatric (Routine) - Closed Specialty Diagnoses / Procedures Referred By Contac t Referred To Contact Psychiatry Diagnoses JODIE (generalized anxiety disorder) Post-traumatic stress disorder, unspecified Depression, unspecified depression type Baron Hobson PA [address] [place] [address] [facility] Psychiatry [address] [place] [phone] Referral ID Status Reason Start Date Expiration Date V isits Requested Visits Authorized [id number] Closed Consult, Test & Treat PCP Updated and/or Approved 02/01/2023 02/01/2024 6 6 Encounter Details Date Type Department Care Team (Latest Contact Info) Description 02/01/2023 Transcribe Orders eDH Incoming Referrals [phone] Baron Hobson PA [address] [place] [address] JODIE (generalized anxiety disorder); Post-traumatic [...] 11:00 AM EST Office [place] [address] Clinic, Dr Alfaro Team None Scheduled Referrals [...] type documented in this encounter Care Teams Bond Clerk Relationship Specialty Start Date End Date Baron Hobson PA [address] [place] [address] PCP - General Family Medicine 02/01/23 documented as of this encounter
--- OUTSIDE RECORDS SUMMARY | 2024-05-02 09:58 | XMS_ITS | Encounter Summary ---
[place] [address] Care Team Providers Care Metal Furniture Polisher Name Role Phone Terri Thrasher APRN Primary Care Provider + Encounter Details Date Type Department Care Team (Late st Contact Info) Description 10/07/2018 [place] [phone] Eugenio Hernandez MD [facility] [place] [address] Cerebral aneurysm without rupture Social History Tobacco [...] 11:00 AM EST Office [place] [phone] Clinic, Dr Alfaro Team None documented as of this encounter Visit Diagnoses Diagnosis Cerebral aneurysm without rupture Cerebral aneurysm, nonruptured documented in this encounter Care Teams Metal Furniture Polisher Relationship Specialty Start Date End Date Terri Thrasher APRN PCP - General Family Medicine 08/01/18 02/14/21 documented as of this encounter
--- OUTSIDE RECORDS SUMMARY | 2024-05-02 09:58 | XMS_ITS | Encounter Summary ---
[place] [address] Care Team Providers Care Mobile Application Engineer Name Role Phone BarbraLucasClaudiatony Gabriel APRN Primary Care Provider [phone] Reason for Referral * Diagnostic Test (Routine) - Closed Specialty Diagnoses / Procedures Referred By Contac t Referred To Contact Radiology Diagnoses Cerebral aneurysm Procedures MRI Angiogram Head wo Contrast (Generic) Dennise Jaimes APRN [facility] [place] [address] [place] [address] Referral ID Status Reason Start Date Expiration Date V isits Requested Visits Authorized [id number] Closed Specialty Service Requested 10/11/2021 04/12/2023 1 1 Reason for Visit * Diagnostic Test (Routine) - Closed Specialty Diagnoses / Procedures Referred By Contac t Referred To Contact Radiology Diagnoses Cerebral aneurysm Procedures MRI Angiogram Head wo Contrast (Generic) Dennise Jaimes TECHNICAL AID [facility] [place] [address] [place] [address] Referral ID Status Reason Start Date Expiration Date V isits Requested Visits Authorized [id number] Closed Specialty Service Requested 10/11/2021 04/12/2023 1 1 Encounter Details Date Type Department Care Team (Latest Contact Info) Description 11/24/2021 9:07 AM EDT - 11/24/2021 9:10 AM EDT Hospital Encounter MRI at [facility] [place] [address] Dennise Jaimes APRN [facility] [place] [address] Cerebral aneurysm Discharge Disposition: Home Social History [...] mcg/actuation HFA Aerosol Inhaler as needed. 10/08/2019 albuteroL 90 mcg/actuation HFA Aerosol Inhaler INHALE 2 PUFFS EVERY 6 HOURS NEEDED FOR SHORTNESS OF BREATH OR WHEEZING 10/14/2021 ascorbic acid, Vitamin C, (Vitamin C) 250 mg Tablet Take 250 mg by mouth as needed. When remembered LORazepam (Ativan) 0.5 mg Tablet TAKEONE TABLET BY MOUTH NEEDED 10/16/2021 12/21/2022 FLUoxetine (PROzac) 20 mg Capsule 1 capsule daily. 06/24/2019 08/14/2023 documented as of this encounter Progress Notes * Hans Ochoa LPN - 11/24/2021 9:20 AM EDT MRI PRE-SEDATION ASSESSMENT NOTE NAME: Holly Contreras Young AGE: 41 y.o. : 1980 [address] [facility] [address] Female [phone] (home) Telephone Information: Claudia Belle APRN No primary care provider on file. Allergies Allergen Reactions ??? Amoxicillin Nausea And Vomiting Passed out ??? Asa Buff (Mag Carb-Al Glyc) [Aspirin, Buffered] Anxiety ??? Codeine Nausea Only ??? Nsaids (Non-Steroidal Anti-Inflammatory Drug) Palpitations Date/Time of call: November 20, 2021/11:50 AM/ PREVIOUS MRI SCAN? Yes, w/o sedation HEIGHT: WEIGHT: SCHEDULED SCAN: MRI HEAD ANGIOGRAM WO CONTRAST [[id number]] Order Questions Answers Where will study be performed? [facility] Radiology [120] Is the patient ? Unknown SUBJECTIVE: Clautrophobia CAN YOU LAY FLAT? Yes AIRWAY/BREATHING ISSUES? No DO YOU HAVE ANY INVOLUNTARY MOVEMENTS? No DO YOU HAVE ANY PAIN? No DO YOU TAKE PAIN MED ON A DAILY BASIS? No ASSESSMENT: OK for PO sedation PLAN: Valium 5-10 mg PO ordered (CHRISTINA ) You must have a garbage collector driver present when you check in. This patient has been informed that they require a garbage collector driver to drive them home after this procedure. In the absence of a garbage collector driver, IR will not be able to sedate for your scan. Pt verbalized understanding of these instructions during the pre-procedure education via phone. Yes Name of garbage collector driver: Phone number: PRIOR SCAN DATE/S SEDATION TYPE SUCCESSFUL 10/07/18 Diagnostic Cerebral Ar[facility]iogram [facility]19 MRI Head wo ? 11/24/21 MRI head wo?Valium 5mg PO x 2 ? Revised 10/29/17 documented in this encounter Plan of Treatment Upcoming Encounters Date Type Department Care Team (Late st Contact Info) Description 07/08/2024 11:00 AM EST Office [place] [address] Clinic, Dr Alfaro Team None documented as [...] who have questions please contact the health family day carer that requested your imaging first. ? Electronically signed by: Nazario Cedillo MD, [facility] ([phone]), at 11/24/2021 2:42 PM Narrative 11/24/2021 2:42 PM EDT EXAMINATION: MRI ANGIOGRAM HEAD WO CONTRAST (GENERIC) CLINICAL HISTORY: right opthalmic aneurysm TECHNIQUE: MRA of the head performed without contrast. 3-D MIP reconstructions were created. 3-D [id number]-xy-ishyuq. Axial high-resolution T1 imaging through the [facility] was also performed COMPARISON: Previous MRA 11/02/2020 11/11/2019 and 10/17/2018 cerebral angiogram. 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 I have measured it on transverse 3-D ftkh-xe-eokish data images. It measures about 4 mm [...] contrast. 3-D MIP reconstructions were created. 3-D fkxd-oe-jzojnz. Axial high-resolution T1 imaging through [facility] was also performed COMPARISON: Previous MRA 11/02/2020 11/11/2019 and 10/17/2018 cerebral angiogram. FINDINGS: Again noted is a small aneurysm at the origin of the right ophthalmicartery. I have measured it on transverse 3-D ucbf-bq-ublogb data images. It measuresabout 4 mm in [...] patients who have questions please contactthe health family day carer that requested your imaging first. Electronically signed by: Nazario Cedillo MD, [facility]([phone]), at 11/24/2021 2:42 PM Dennise Jaimes APRN [facility] [place] ORDERABLES documented in this encounter Visit [...] mg documented in this encounter Care Teams Mobile Application Engineer Relationship Specialty Start Date End Date Claudia Belle APRN [address] [place] [address] PCP - General Family Medicine 11/11/21 02/23/22 documented as of this encounter
--- OUTSIDE RECORDS SUMMARY | 2024-05-02 09:58 | XMS_ITS | Encounter Summary ---
Author Organization [facility] [place] [address] Care Team Providers Care Vp Director Of Creative Strategy Name Role Phone Terri Thrasher APRN Primary Care Provider + Encounter Details Date Type Department Care Team (Late st Contact Info) Description 09/23/2018 9:10 PM EDT Ancillary Procedure Radiology Library at [facility] [place] [address] Leif Hoffman MD [facility] [address] [place] [address] Social History Tobacco Use Types Packs/Day Years [...] 11:00 AM EST Office [place] [address] Clinic, Dr Alfaro Team None documented as of this encounter Procedures Procedure Name Priority Date/Time Associated Diagnosis Comments FILM LIBRARY STORAGE ONLY CT HEAD Routine 09/23/2018 9:05 PM EDT documented in this encounter Results * Film Library- Storage Only CT Head (09/23/2018 9:05 PM EDT) Narrative [facility] - 09/23/2018 9:05 PM EDT This exam is auto-finalizing. It's purpose is for storage only. Leif Hoffman MD IM FILM LIBRARY ORD ERABLES [place], [place] documented in this encounter Visit Diagnoses Not on filedocumented in this encounter Care Teams Vp Director Of Creative Strategy Relationship Specialty Start Date End Date Terri Thrasher, CER[employer]ODUCTS SALES ENGINEER PCP - General Family Medicine 08/01/18 02/14/21 documented as of this encounter
--- OUTSIDE RECORDS SUMMARY | 2024-05-02 09:58 | XMS_ITS | Encounter Summary ---
[place] [address] Care Team Providers Care Negative Turner Name Role Phone Claudia Belle APRN Primary Care Provider [phone] Reason for Referral * Consultation (Routine) - Denied Specialty Diagnoses / Procedures Referred By Jesika t Referred To Contact Rheumatology Diagnoses Pain in joint, multiple sites Abnormal reflex Claudia Belle APRN [address] [place] [address] [facility] Rhe[facility] [address] [place] [phone] Referral ID Status Reason Start Date Expiration Date V isits Requested Visits Authorized [id number] Denied Consult, Test & Treat 11/13/2021 11/13/2022 6 0 Encounter Details Date Type Department Care Team (Late st Contact Info) Description 11/13/2021 Transcribe Orders eDH Incoming Referrals [phone] Claudia Belle APRN [address] [place], [place] [id number] Pain in joint, multiple sites; Abnormal reflex [...] 11:00 AM EST Office Visit [place] [address] Clinic, Dr Alfaro Team None Scheduled Referrals Name Type Priority Associated Diagnoses Order Schedule Referral to Rheumatology Outpatient Referral Routine Pain in joint, multiple sites Abnormal reflex Ordered: 11/13/2021 documented as of this encounter Visit Diagnoses Diagnosis Pain in joint, multiple sites Abnormal reflex documented in this encounter Care Teams Negative Turner Relationship Specialty Start Date End Date Claudia Belle, NAMRATA [address] [place] [address] PCP - General Family Medicine 11/11/21 02/23/22 documented as of this encounter
--- OUTSIDE RECORDS SUMMARY | 2024-05-02 09:58 | XMS_ITS | Encounter Summary ---
[place] [address] Care Team Providers Care Support Architect Name Role Phone Baron Hobson Primary Care Provider [phone] Reason for Referral * Consultation (Routine) - Closed Specialty Diagnoses / Procedures Referred By Jesika t Referred To Contact Orthopaedics Diagnoses Left knee pain, unspecified chronicity Baron Hobson PA [address] [place] [address] [facility] [address] [place] [phone] Referral ID Status Reason Start Date Expiration Date V isits Requested Visits Authorized [id number] Closed Second Opinion PCP Updated and/or Approved 02/01/2023 02/01/2024 12 12 Encounter Details Date Type Department Care Team (Latest Contact Info) Description 02/01/2023 Transcribe Orders eDH Incoming Referrals [phone] Baron Hobson PA [address] [place], [place] [address] Left knee pain, unspecified chronicity Social History [...] 11:00 AM EST Office [place] [address] Clinic, Dr Alfaro Team None Scheduled Referrals Name Type Priority Associated Diagnoses Orde r Schedule Referral to Orthopaedics Outpatient Referral Routine Left knee pain, unspecified chronicity Ordered: 02/01/2023 documented as of this encounter Visit Diagnoses Diagnosis Left knee pain, unspecified chronicity documented in this encounter Care Teams Support Architect Relationship Specialty Start Date End Date Baron Hobson PA [address] [place] [address] PCP - General Family Medicine 02/01/23 documented as of this encounter
--- OUTSIDE RECORDS SUMMARY | 2024-05-02 09:58 | XMS_ITS | Encounter Summary ---
[place] [address] Care Team Providers Care Diver Assistant Name Role Phone Lashawn Mcnally APRN Primary Care Provider [phone] Encounter Details Date Type Department Care Team (Late st Contact Info) Description 02/20/2021 Orders [place] [address] Poncho De La Cruz MD [facility] [place] [address] Thyroid nodule Social History Tobacco Use Types [...] 11:00 AM EST Office [place] [address] Clinic, Dr Alfaro Team None documented as of this encounter Visit Diagnoses Diagnosis Thyroid nodule Nontoxic uninodular goiter documented in this encounter Care Teams Diver Assistant Relationship Specialty Start Date End Date Lashawn Mcnally APRN [address] [place] [address] PCP - General Family Medicine 02/15/21 11/10/21 documented as of this encounter
--- OUTSIDE RECORDS SUMMARY | 2024-05-02 09:58 | XMS_ITS | Encounter Summary ---
[place] [address] Care Team Providers Care Manager Intelligence Name Role Phone Unknown Primary Care Provider [...] 11:00 AM EST Office [place] [address] Clinic, Dr Alfaro Team None documented as of this encounter Visit Diagnoses Not on filedocumented in this encounter Care Teams Manager Intelligence Relationship Specialty Start Date End Date Unknown None PCP - General 02/24/22 01/31/23 documented as of this encounter
--- OUTSIDE RECORDS SUMMARY | 2024-05-02 09:58 | XMS_ITS | Encounter Summary ---
[place] [address] Care Team Providers Care Check Embosser Name Role Phone Lashawn Mcnally NAMRATA Primary Care Provider [phone] Encounter Details Date Type Department Care Team (Late st Contact Info) Description 01/23/2021 [place] [address] Susan Lees Social History Tobacco [...] Caller: Patient Best number to reach caller: [phone] Reason for call: On and off pain in right congregation and neck, pressure in head, right side of head is hot/ not normal Seen yesterday in [facility] ED for similar sx- see Dr. Altman's note Recent Surgery?: no documented in this encounter Plan of Treatment Upcoming Encounters Date Type Department Care Team (Late st Contact Info) Description 07/08/2024 11:00 AM EST Office [place] [address] Clinic, Dr Alfaro Team None documented as of this encounter Visit Diagnoses Not on filedocumented in this encounter Care Teams Check Embosser Relationship Specialty Start Date End Date Lashawn Mcnally APRN [address] [place] [address] PCP - General Family Medicine 02/15/21 11/10/21 documented as of this encounter
--- OUTSIDE RECORDS SUMMARY | 2024-05-02 09:58 | XMS_ITS | Encounter Summary ---
Author Organization [facility] Address [facility] [place] [address] Care Team Providers Care Hosiery Operator Name Role Phone Unknown Primary Care Provider Unavailabl e Encounter Details Date Type Department Care Team (Late st Contact Info) Description 12/21/2022 1:00 PM EDT Office Visit Neurosurgery at [facility] [place] [address] Dennise Jaimes APRN [facility] [place] [address] Aneurysm of ophthalmic artery Social History Tobacco [...] this encounter Progress Notes * Dennise Jaimes, OFFBEARER - 12/21/2022 1:00 PM EDT ASSESSMENT/PLAN: Aneurysm [...] MRA in 1 year at [facility]. Please feel free to call in the [...] MRA in 1 year at [facility]. Please feel free to call in the [...] 11:00 AM EST Office [place] [address] Clinic, Dr Alfaro Team None documented as of this encounter Visit Diagnoses Diagnosis Aneurysm of ophthalmic artery Cerebral aneurysm, nonruptured documented in this encounter Care Teams Hosiery Operator Relationship Specialty Start Date End Date Unknown None PCP - General 02/24/22 01/31/23 documented as of this encounter
--- OUTSIDE RECORDS SUMMARY | 2024-05-02 09:58 | XMS_ITS | Encounter Summary ---
Author Organization [facility] Address [facility] [place] [address] Care Team Providers Care Processing Engineer Name Role Phone Terri Thrasher NAMRATA Primary Care Provider + Encounter Details Date Type Department Care Team (Late st Contact Info) Description 01/22/2021 Notes Only Neurology at [facility] [address] [place] [address] Timmy Altman MD [facility] [place] [address] Social History Tobacco Use Types Packs/Day Years [...] Altman MD - 01/22/2021 6:41 PM EDT [facility] Neurology Hollow Ware Maker Attending Neurologist note This note is to document a telephone conversation I had with: Dr. Jillian Otto From [facility] On Holly Mcnally 40 y.o. female 1980 [id number] Information Received: 40-year-old female with known left [...] for patient to contact her provider at [facility], Dr. Eugenio Hernandez, tomorrow. Question(s) from referring [...] will copy the patient's provider here at [facility] with this note. The referring physician was satisfied with the impressions and recommendations. Please note that I have not seen, examined, or evaluated this patient in person or via a video system. Therefore, my impressions and recommendations are based solely on the information received from the referring provider. Jax Altman MD Department of Neurology [facility] documented in this encounter Plan of Treatment Upcoming Encounters Date Type Department Care Team (Late st Contact Info) Description 07/08/2024 11:00 AM EST Office [place] [address] Clinic, Dr Alfaro Team None documented as of this encounter Visit Diagnoses Not on filedocumented in this encounter Care Teams Processing Engineer Relationship Specialty Start Date End Date Terri Thrasher APRN PCP - General Family Medicine 08/01/18 02/14/21 documented as of this encounter
--- OUTSIDE RECORDS SUMMARY | 2024-05-02 09:58 | XMS_ITS | Encounter Summary ---
Author Organization [facility] [place] [address] Care Team Providers Care Medical Education Specialist Name Role Phone Baron Hobson Primary Care Provider [phone] Reason for Referral * Physical Therapy (Routine) - Closed Specialty Diagnoses / Procedures Referred By Contac t Referred To Contact Physical Therapy Diagnoses Patellofemoral arthritis of right knee Dmitriy Earl MD [facility] DR ORTHOPAED[place] [address] Referral ID Status Reason Start Date Expiration Date V isits Requested Visits Authorized [id number] Closed Evaluate and Treat 08/14/2023 02/10/2024 12 12 Reason for Visit * Reason Comments Establish Care NXR LEFT KNEE PAIN NO INJURY 2ND OPINON * Consultation (Routine) - Closed Specialty Diagnoses / Procedures Referred By Contac tan Referred To Contact Orthopaedics Diagnoses Left knee pain, unspecified chronicity Baron Hobson PA [address] [place] [address] [facility] [address] [place] [phone] Referral ID Status Reason Start Date Expiration Date V isits Requested Visits Authorized [id number] Closed Second Opinion PCP Updated and/or Approved 02/01/2023 02/01/2024 12 12 Encounter Details Date Type Department Care Team (Latest Contact Info) Description 08/14/2023 10:40 AM EDT Office [place] [address] Clinic, Dr Youngblood Team None Patellofemoral arthritis [...] was referred from HIEN Sung [address] [place] [address] HISTORY OF PRESENT ILLNESS: Hloly Mcnally who is a 42 y.o. female who has a history of approximately 3 years of right knee pain which started insidiously. She denies any inciting event. She states she noted more knee pain whenshe would walk about a half a mile to the [facility]. It is worse with excessive knee [...] less than $25,000 # People Supported 4 Haitian, , No, not Haitian// Race White Health Literacy Extremely Currently working [...] IR Arteriogram Cerebral 10/07/2018 Eugenio Hernandez MD [facility] FAMILY HISTORY: Family history [...] 11:00 AM EST Office [place] [address] Clinic, Dr Youngblood Team None Scheduled Referrals Name Type Priority Associated Diagnoses Orde r Schedule Referral to Physical Therapy Outpatient Referral Routine Patellofemoral arthritis of right knee Ordered: 08/14/2023 documented as of this encounter Visit Diagnoses Diagnosis Patellofemoral arthritis of right knee documented in this encounter Care Teams Medical Education Specialist Relationship Specialty Start Date End Date Baron Hobson PA [address] [place] [address] PCP - General Family Medicine 02/01/23 documented as of this encounter
--- OUTSIDE RECORDS SUMMARY | 2024-05-02 09:58 | XMS_ITS | Encounter Summary ---
Author Organization [facility] [place] [address] Care Team Providers Care Aquatics Manager Name Role Phone UliLashanw NAMRATA Primary Care Provider [phone] Encounter Details Date Type Department Care Team (Late st Contact Info) Description 04/18/2021 Telephone Neurosurgery at [facility] [place] [address] Adelso Maravilla Social History Tobacco Use Types [...] 04/18/2021 9:30 AM EST Holly Contreras Uli [id number] 1980 Caller: Holly Reason for call: c/o [...] Caller: Patient Best number to reach caller: [phone] Reason for call: Patient calling to advise she has pain in her right pentecostal (location of aneurysm) that goes down into her jaw and neck. This is the 2nd or 3rd time this has happened. Recent Surgery?: No documented in this encounter Plan of Treatment Upcoming Encounters Date Type Department Care Team (Late st Contact Info) Description 07/08/2024 11:00 AM EST [place] [address] Clinic, Dr Alfaro Team None documented as of this encounter Visit Diagnoses Not on filedocumented in this encounter Care Teams Aquatics Manager Relationship Specialty Start Date End Date Lashawn Mcnally APRN [address] [place] [address] PCP - General Family Medicine 02/15/21 11/10/21 documented as of this encounter
--- OUTSIDE RECORDS SUMMARY | 2024-05-02 09:58 | XMS_ITS | Encounter Summary ---
Author [facility] [place] [address] Care Team Providers Care Bus Attendant Name Role Phone Terri Thrasher INTERNAL COMBUSTION ENGINEER Primary Care Provider + Encounter Details Date Type Department Care Team (Late st Contact Info) Description 09/23/2018 Telephone [place] [address] Veronica Michael Social History Tobacco Use Types [...] understanding of this * Telephone Encounter - MichaelAnnaVeronica G - 09/23/2018 3:52 PM EDT Caller: Patient [...] 11:00 AM EST Office [place] [address] Clinic, Dr Alfaro Team None documented as of this encounter Visit Diagnoses Not on filedocumented in this encounter Care Teams Bus Attendant Relationship Specialty Start Date End Date Terri Thrasher APRN PCP - General Family Medicine 08/01/18 02/14/21 documented as of this encounter
--- OUTSIDE RECORDS SUMMARY | 2024-05-02 09:58 | XMS_ITS | Encounter Summary ---
[place] [address] Care Team Providers Care Business Ethics Professor Name Role Phone Lashawn Mcnally APRN Primary Care Provider [phone] Reason for Referral * Diagnostic Test (Routine) - Closed Specialty Diagnoses / Procedures Referred By Jesika t Referred To Contact Radiology Diagnoses Cerebral aneurysm Procedures MRI Angiogram Head wo Contrast (Generic) Dennise Jaimes APRN [facility] [place] [address] [place] [address] Referral ID Status Reason Start Date Expiration Date V isits Requested Visits Authorized [id number] Closed Specialty Service Requested 10/11/2021 04/12/2023 1 1 Encounter Details Date Type Department Care Team (Late Contact Info) Description 10/10/2021 Orders [place] [address] Vanessa Frost RN Anterior cerebral [...] 11:00 AM EST Office [place] [address] Clinic, Dr Alfaro Team None documented as [...] ? Electronically signed by: Nazario Cedillo MD, [facility] ([phone]), at 11/24/2021 2:42 PM Narrative 11/24/2021 2:42 PM EDT EXAMINATION: MRI ANGIOGRAM HEAD WO CONTRAST (GENERIC) CLINICAL HISTORY: right opthalmic aneurysm TECHNIQUE: MRA of the head performed without contrast. 3-D MIP reconstructions were created. 3-D aokk-hl-gcthbq. Axial high-resolution T1 imaging through the sun'aq of Garcia was also performed COMPARISON: Previous MRA 11/02/2020 11/11/2019 and 10/17/2018 cerebral angiogram. 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 I have measured it on transverse 3-D mwgl-kk-eowsdh data images. It measures about 4 mm [...] contrast. 3-D MIP reconstructions were created. 3-D yalg-mw-xugowy. Axial high-resolution T1 imaging through thecircle of Garcia was also performed COMPARISON: Previous MRA 11/02/2020 11/11/2019 and 10/17/2018 cerebral angiogram. FINDINGS: Again noted is a small aneurysm at the origin of the right ophthalmicartery. I have measured it on transverse 3-D xjxv-dd-oivmbk data images. It measuresabout 4 mm in [...] first. Electronically signed by: Nazario Cedillo MD, [facility]([phone]), at 11/24/2021 2:42 PM Dennise Jaimes APRN [facility] MRI ORDERABLES documented in this encounter Visit Diagnoses Diagnosis Anterior cerebral artery aneurysm Cerebral aneurysm, nonruptured Cerebral aneurysm Cerebral aneurysm, nonruptured Cerebral aneurysm Cerebral aneurysm, nonruptured documented in this encounter Care Teams Business Ethics Professor Relationship Specialty Start Date End Date Lashawn Mcnally APRN [address] [place] [address] PCP - General Family Medicine 02/15/21 11/10/21 documented as of this encounter
--- OUTSIDE RECORDS SUMMARY | 2024-05-02 09:58 | XMS_ITS | Encounter Summary ---
Author Organization [facility] [place] [address] Care Team Providers Care Pork Cutlet Maker Name Role Phone Baron Hobson Primary Care Provider [phone] Encounter Details Date Type Department Care Team (Late st Contact Info) Description 11/08/2023 Telephone [place] [address] Bindu Tamayo RN Social History Tobacco Use [...] 11:00 AM EST Office Visit [place] [address] Clinic, Dr Alfaro Team None documented as of this encounter Visit Diagnoses Not on filedocumented in this encounter Care Teams Pork Cutlet Maker Relationship Specialty Start Date End Date Baron Hobson PA [address] [place] [address] PCP - General Family Medicine 02/01/23 documented as of this encounter
--- OUTSIDE RECORDS SUMMARY | 2024-05-02 09:58 | XMS_ITS | Encounter Summary ---
Author Organization [facility] [place] [address] Care Team Providers Care College President Name Role Phone Unknown Primary Care Provider Unavailabl e Encounter Details Date Type Department Care Team (Late st Contact Info) Description 06/29/2022 Ancillary Procedure Radiology Library at [facility] [place] [address] Baron Hobson PA [address] [place], [place] [address] Social History Tobacco Use Types Packs/Day Years [...] 11:00 AM EST Office Visit Orthopaedics at [facility] [place] [address] Clinic, Dr Alfaro Team None documented as of this encounter Procedures Procedure Name Priority Date/Time Associated Diagnosis Comments FILM LIBRARY STORAGE ONLY DX KNEE Routine 06/29/2022 12:00 AM EST documented in this encounter Results * Film Library- Storage Only DX Knee (06/29/2022 12:00 AM EST) Narrative [facility] - 02/11/2023 5:05 AM EDT This exam is auto-finalizing. It's purpose is for storage only. Baron STANFORD IMG FILM LIBRARY O RDERABLES Performing Organization Address City/State/[facility] Co de Phone Number [place], [place] documented in this encounter Visit Diagnoses Not on filedocumented in this encounter Care Teams College President Relationship Specialty Start Date End Date Unknown None PCP - General 02/24/22 01/31/23 documented as of this encounter
--- OUTSIDE RECORDS SUMMARY | 2024-05-02 09:58 | XMS_ITS | Encounter Summary ---
Author Organization [facility] [place] [address] Care Team Providers Care Job Estimator Name Role Phone Unknown Primary Care Provider Unavailabl e Encounter Details Date Type Department Care Team (Late st Contact Info) Description 10/04/2022 Telephone [place] [address] Juliet Gutierres RN Social History [...] 11:00 AM EST Office [place] [address] Clinic, Dr Alfaro Team None documented as of this encounter Visit Diagnoses Not on filedocumented in this encounter Care Teams Job Estimator Relationship Specialty Start Date End Date Unknown None PCP - General 02/24/22 01/31/23 documented as of this encounter
--- OUTSIDE RECORDS SUMMARY | 2024-05-02 09:58 | XMS_ITS | Encounter Summary ---
Author Organization [facility]ly [facility] [place] [address] Care Team Providers Care Tag Press Operator Name Role Phone Baron Hobson Primary Care Provider [phone] Encounter Details Date Type Department Care Team (Late st Contact Info) Description 09/30/2023 [place] [address] Eugenio Tee, RN Social History Tobacco Use [...] - 09/30/2023 9:33 AM EDT Copied from [facility] #[id number]. Topic: Specialty Dept CRMs - Generic Call >> Sep 30, 2023 8:52 AM Orquidea Nunez wrote: Specialist: Dennise Jaimes APRN Relationship (if other than patient-full name): Holly Mcnally Reason for Call: patient is scheduled for her annual follow up, on 01-02-24, is requesting medicationfor the MRI sedation and asking if a script can be sent to [facility], [address] [place] [address] , patient also has a question about WHEN to take the medication, pleasesend instructions through her [facility] portal, patient has someone driving her to this appointment. documented in this encounter Plan of Treatment Upcoming Encounters Date Type Department Care Team (Late st Contact Info) Description 07/08/2024 11:00 AM EST Office [place] [address] Clinic, Dr Alfaro Team None documented as of this encounter Visit Diagnoses Not on filedocumented in this encounter Care Teams Tag Press Operator Relationship Specialty Start Date End Date Baron Hobson PA [address] [place] [address] PCP - General Family Medicine 02/01/23 documented as of this encounter
--- OUTSIDE RECORDS SUMMARY | 2024-05-02 09:58 | XMS_ITS | Encounter Summary ---
Author Organization [facility] [address] Care Team Providers Care Rn Flight Name Role Phone Terri Thrasher NAMRATA Primary Care Provider + Encounter Details Date Type Department Care Team (Late st Contact Info) Description 10/28/2018 11:30 AM EDT Office [place] [address] Romi [place] Cigarette nicotine dependence without complication [...] - Tobacco Cessation Consultation JARETH Aguero (Kate) [place], [place] [address] FAX: HPI: Holly Mcnally is a 38 [...] [place] 10/28/18 Thoracic Surgery - Tobacco Cessation [facility] documented in this encounter Plan of Treatment Upcoming Encounters Date Type Department Care Team (Late st Contact Info) Description 07/08/2024 11:00 AM EST Office [place] [address] Clinic, Dr Alfaro Team None documented as of this encounter Visit Diagnoses Diagnosis Cigarette nicotine dependence without complication Tobacco use disorder documented in this encounter Care Teams Rn Flight Relationship Specialty Start Date End Date Terri Thrasher APRN PCP - General Family Medicine 08/01/18 02/14/21 documented as of this encounter
--- OUTSIDE RECORDS SUMMARY | 2024-05-02 09:58 | XMS_ITS | Encounter Summary ---
Author Organization [facility] [place] [address] Care Team Providers Care Retail Administrative Assistant Name Role Phone Baron Hobson Primary Care Provider +1- [phone] Encounter Details Date Type Department Care Team (Late st Contact Info) Description 11/08/2023 Telephone [place] [address] Bindu Tamayo RN Social History Tobacco Use [...] - 11/08/2023 10:02 AM EDT Copied from [facility] #[id number]. Topic: Specialty Dept CRMs - Triage >> [...] clinic at if possible. Please contact at [phone]. documented in this encounter Plan of Treatment Upcoming Encounters Date Type Department Care Team (Late st Contact Info) Description 07/08/2024 11:00 AM EST Office Visit [place] [address] Clinic, Dr Alfaro Team None documented as of this encounter Visit Diagnoses Not on filedocumented in this encounter Care Teams Retail Administrative Assistant Relationship Specialty Start Date End Date Baron Hobson PA [address] [place] [address] PCP - General Family Medicine 02/01/23 documented as of this encounter
--- OUTSIDE RECORDS SUMMARY | 2024-05-02 09:58 | XMS_ITS | Encounter Summary ---
Author Organization [facility] [place] [address] Care Team Providers Care Licensed Pharmacist Name Role Phone Unknown Primary Care Provider Unavailabl e Encounter Details Date Type Department Care Team (Late st Contact Info) Description 09/29/2022 Ancillary Procedure Radiology Library at [facility] [place] [address] Baron Hobson PA [address] [place], [place] [address] Social History Tobacco Use Types Packs/Day Years [...] AM EST Office Visit Orthopaedics at [facility] [place] [address] Clinic, Dr Alfaro Team None documented as of this encounter Procedures Procedure Name Priority Date/Time Associated Diagnosis Comments FILM LIBRARY STORAGE ONLY DX KNEE Routine 09/29/2022 12:00 AM EDT documented in this encounter Results * Film Library- Storage Only DX Knee (09/29/2022 12:00 AM EDT) Narrative [facility] - 02/11/2023 5:05 AM EDT This exam is auto-finalizing. It's purpose is for storage only. Baron STANF[facility] IMG FILM LIBRARY O RDERABLES DH [place], [place] documented in this encounter Visit Diagnoses Not on filedocumented in this encounter Care Teams Licensed Pharmacist Relationship Specialty Start Date End Date Unknown None PCP - General 02/24/22 01/31/23 documented as of this encounter
--- OUTSIDE RECORDS SUMMARY | 2024-05-02 09:58 | XMS_ITS | Encounter Summary ---
Author Organization [facility]ly [facility] [place] [address] Care Team Providers Care Fixture Repairer Fabricator Name Role Phone Terri Thrasher NAMRATA Primary Care Provider + Reason for Referral * Diagnostic Test (Routine) - Closed Specialty Diagnoses / Procedures Referred By Contac t Referred To Contact Radiology Diagnoses Cerebral aneurysm without rupture Procedures MRI Angiogram Head wo Contrast (Generic) [facility] [address] [place] [address] [place] [address] Referral ID Status Reason Start Date Expiration Date V isits Requested Visits Authorized [id number] Closed Specialty Service Requested 08/17/2019 02/16/2021 1 1 Reason for Visit * Diagnostic Test (Routine) - Closed Specialty Diagnoses / Procedures Referred By Contac t Referred To Contact Radiology Diagnoses Cerebral aneurysm without rupture Procedures MRI Angiogram Head wo Contrast (Generic) [facility] [address] [place] [address] [place] [address] Referral ID Status Reason Start Date Expiration Date V isits Requested Visits Authorized [id number] Closed Specialty Service Requested 08/17/2019 02/16/2021 1 1 Encounter Details Date Type Department Care Team (Latest Contact Info) Description 11/11/2019 12:13 PM EDT - 11/11/2019 11:59 PM EDT Hospital [place] [address] Eugenio Hernandez MD [facility] [place] [address] Cerebral aneurysm without rupture Discharge Disposition: Home [...] 11:00 AM EST Office [place] [address] Clinic, Dr Alfaro Team None documented as [...] below. ? Electronically signed by: Lillian Farnsworth [facility] ([phone]), at 11/11/2019 3:32 PM Narrative 11/11/2019 3:32 [...] number below. Electronically signed by: ROSETTA Tavares [facility] ([phone]),at 11/11/2019 3:32 PM Eugenio Hernandez MD IMG MRI ORDERABLES documented in this encounter Visit Diagnoses Diagnosis Cerebral aneurysm without rupture Cerebral aneurysm, nonruptured documented in this encounter Care Teams Fixture Repairer Fabricator Relationship Specialty Start Date End Date Terri Thrasher APRN PCP - General Family Medicine 08/01/18 02/14/21 documented as of this encounter
--- OUTSIDE RECORDS SUMMARY | 2024-05-02 09:58 | XMS_ITS | Encounter Summary ---
[place] [address] Care Team Providers Care Cloth Shrinker Name Role Phone Claudia vance Nery OTT Primary Care Provider [phone] Reason for Referral * Diagnostic Test (Routine) - Closed Specialty Diagnoses / Procedures Referred By Jesika t Referred To Contact Radiology Diagnoses Aneurysm of ophthalmic artery Procedures MRI Angiogram Head wo Contrast (Generic) Dennise Jaimes APRN [facility] [place] [address] [place] [address] Referral ID Status Reason Start Date Expiration Date V isits Requested Visits Authorized [id number] Closed Specialty Service Requested 11/24/2021 05/26/2023 1 1 Encounter Details Date Type Department Care Team (Late st Contact Info) Description 11/24/2021 1:00 PM EDT Office [place] [address] Dennise Jaimes APRN [facility] [place] [address] Aneurysm of ophthalmic artery Social History Tobacco [...] 11:00 AM EST Office [place] [address] Clinic, Dr Alfaro Team None [...] who have questions please contact the health physician locums urgent care that requested your imaging first. ? Narrative [...] patients who have questions please contactthe health physician locums urgent care that requested your imaging first. 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
--- OUTSIDE RECORDS SUMMARY | 2024-05-02 09:58 | XMS_ITS | Encounter Summary ---
Author Organization [facility] [place] [address] Care Team Providers Care Family Life Educator Name Role Phone Unknown Primary Care Provider Unavailabl e Encounter Details Date Type Department Care Team (Late st Contact Info) Description 12/27/2022 Telephone [place] [address] Dennise Jaimes APRN [facility] [place] [address] Social History Tobacco Use Types [...] 11:00 AM EST Office Visit [place] [address] Clinic, Dr Alfaro Team None documented as of this encounter Visit Diagnoses Not on filedocumented in this encounter Care Teams Family Life Educator Relationship Specialty Start Date End Date Unknown None PCP - General 02/24/22 01/31/23 documented as of this encounter
--- OUTSIDE RECORDS SUMMARY | 2024-05-02 09:58 | XMS_ITS | Encounter Summary ---
[place] [address] Care Team Providers Care Information Technology Technician Name Role Phone Terri Thrasher APRN Primary Care Provider + Encounter Details Date Type Department Care Team (Latest Contact Info) Description 10/07/2018 6:30 AM EDT Laboratory [place] [address] Pre-op testing; Facial droop; Aneurysm Social History [...] 11:00 AM EST Office Visit [place] [address] Clinic, Dr Alfaro Team None documented as [...] Thromboplastin Time 29 25 - 37 sec [facility] Comment: The PTT is NOT appropriate for heparin monitoring. Use the Anti-Xa level for heparin monitoring (HEP UFH) or LMWH monitoring (HEP LMW). A PTT less than 37 seconds generally indicates adequate hemostasis. Blood specimen (specimen) Venous Draw / Unknown 10/07/2018 6:35 AM EDT 10/07/2018 7:10 AM EDT Narrative Resulting Agency Comment Spec In Lab Carlos Meraz DO HEMATOLOGY ORDERABLE S Performing Organization Address [facility] Co de Phone Number [facility] [place] [address] * Prothrombin Time (10/07/2018 6:35 AM EDT) Pathologist [facility] Prothrombin Time 9.9 9.4 - 12.5 sec [facility] International Normalization Ratio 0.9 [facility] Comment: An INR <2.0 indicates adequate [...] MD HEMATOLOGY ORDERABLE S Performing Organization Address [facility]/ZIP Co de Phone Number [facility] [place] [address] * Platelet count (10/07/2018 6:35 AM EDT) Platelet 292 145 - 357 x10(3)/mc L [facility] Immature Plt % 1.5 0.0 - 7.4 % [facility] Comment: Limitation of the Immature Platelet Fraction (IPF)-May be less reliable when the platelet count is less than 63u996/uL due to statistical imprecision. The IPF value [...] in a decreased state of production. References: [employer] The Clinical Value of the Immature Platelet Fraction (IPF) in Cell Recovery Document Number [id number] 11/2010 [employer] The Role of the Immature Platelet Fraction (IPF) in the Differential Diagnosis of Thrombocytopenia, Document [id number] V010/12/13 P010/14 Blood specimen (specimen) 10/07/2018 6:35 AM EDT 10/07/2018 7:10 AM EDT Narrative Resulting Agency Comment Spec In Lab Eugenio Hernandez MD HEMATOLOGY ORDERABLE S Performing Organization Address City/State/[facility] Co de Phone Number [facility] [place] [address] documented in this encounter Visit Diagnoses Diagnosis Pre-op testing Preoperative examination, unspecified Facial droop Facial weakness Aneurysm Aneurysm of unspecified site documented in this encounter Care Teams Information Technology Technician Relationship Specialty Start Date End Date Terri Thrasher APRN PCP - General Family Medicine 08/01/18 02/14/21 documented as of this encounter
--- OUTSIDE RECORDS SUMMARY | 2024-05-02 09:58 | XMS_ITS | Encounter Summary ---
[place] [address] Care Team Providers Care Bill Of Lading Clerk Name Role Phone Claudia vance Nery OTT Primary Care Provider [phone] Reason for Visit * Diagnostic Test (Routine) - Closed Specialty Diagnoses / Procedures Referred By Jesika maddox Referred To Contact Radiology Diagnoses Cerebral aneurysm Procedures MRI Angiogram Head wo Contrast (Generic) Dennise Jaimes APRN [facility] [place] [address] [place] [address] Referral ID Status Reason Start Date Expiration Date V isits Requested Visits Authorized [id number] Closed Specialty Service Requested 10/11/2021 04/12/2023 1 1 Encounter Details Date Type Department Care Team (Latest Contact Info) Description 11/24/2021 9:11 AM EDT - 11/24/2021 11:59 PM EDT [place] [address] Dennise Jaimes APRN [facility] [place] [address] Discharge Disposition: Home Social History Tobacco Use [...] 11:00 AM EST [place] [address] Clinic, Dr Alfaro Team None documented as [...] have questions please contact the health career technology teacher that requested your imaging first. ? Electronically signed by: Nazario Cedillo MD, [facility] ([phone]), at 11/24/2021 2:42 PM Narrative 11/24/2021 2:42 PM EDT EXAMINATION: MRI ANGIOGRAM HEAD WO CONTRAST (GENERIC) CLINICAL HISTORY: right opthalmic aneurysm TECHNIQUE: MRA of the head performed without contrast. 3-D MIP reconstructions were created. 3-D vicr-cg-tervuw. Axial high-resolution T1 imaging through the paimiut of Garcia was also performed COMPARISON: Previous MRA 11/02/2020 11/11/2019 and 10/17/2018 cerebral angiogram. 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 I have measured it on transverse 3-D auoa-ad-naqhcr data images. It measures about 4 mm [...] contrast. 3-D MIP reconstructions were created. 3-D ojgg-uw-bgiqge. Axial high-resolution T1 imaging through thecircle of Garcia was also performed COMPARISON: Previous MRA 11/02/2020 11/11/2019 and 10/17/2018 cerebral angiogram. FINDINGS: Again noted is a small aneurysm at the origin of the right ophthalmicartery. I have measured it on transverse 3-D yafy-bv-afhjtq data images. It measuresabout 4 mm in [...] who have questions please contactthe health career technology teacher that requested your imaging first. Electronically signed by: Nazario Cedillo MD, [facility]([phone]), at 11/24/2021 2:42 PM Dennise Jaimes APRN IMG MRI ORDERABLES documented in this encounter Visit Diagnoses Not on filedocumented in this encounter Care Teams Bill Of Lading Clerk Relationship Specialty Start Date End Date Claudia Belle APRN [address] [place] [address] PCP - General Family Medicine 11/11/21 02/23/22 documented as of this encounter
--- OUTSIDE RECORDS SUMMARY | 2024-05-02 09:58 | XMS_ITS | Encounter Summary ---
Author Organization [facility] [place] [address] Care Team Providers Care Menhaden Vessel Pilot Name Role Phone Terri Thrasher APRN Primary Care Provider + Encounter Details Date Type Department Care Team (Late st Contact Info) Description 09/24/2018 12:10 AM EDT Ancillary Procedure Radiology Library at [facility] [place] [address] Huang Nicole MD [facility] [place] [address] Social History Tobacco Use Types Packs/Day Years [...] 11:00 AM EST Office Visit Orthopaedics at [facility] [place] [address] Clinic, Dr Alfaro Team None documented as of this encounter Procedures Procedure Name Priority Date/Time Associated Diagnosis Comments FILM LIBRARY STORAGE ONLY ULTRASOUND STUDY Routine 09/24/2018 12:10 AM EDT documented in this encounter Results * Film Library- Storage Only Ultrasound Study (09/24/2018 12:10 AM EDT) Narrative [facility] - 11/07/2018 10:31 AM EDT This exam is auto-finalizing. It's purpose is for storage only. Huang Nicole MD IMG FILM LIBRARY ORD ERABLES [place], [place] documented in this encounter Visit Diagnoses Not on filedocumented in this encounter Care Teams Menhaden Vessel Pilot Relationship Specialty Start Date End Date Terri Thrasher, ACCOUNTING RECONCILIATION CLERK PCP - General Family Medicine 08/01/18 02/14/21 documented as of this encounter
--- OUTSIDE RECORDS SUMMARY | 2024-05-02 09:58 | XMS_ITS | Encounter Summary ---
Author Organization [facility] [place] [address] Care Team Providers Care Hearing Screener Name Role Phone Unknown Primary Care Provider Unavailabl e Encounter Details Date Type Department Care Team (Late st Contact Info) Description 09/19/2022 Ancillary Procedure Radiology Library at [facility] [place] [address] Baron Hobson PA [address] [place], [place] [address] Social History Tobacco Use Types Packs/Day Years [...] 11:00 AM EST Office Visit Orthopaedics at [facility] [place] [address] Clinic, [address] Alfaro Team None documented as of this encounter Procedures Procedure Name Priority Date/Time Associated Diagnosis Comments FILM LIBRARY STORAGE ONLY MR KNEE Routine 09/19/2022 12:00 AM EDT documented in this encounter Results * Film Library- Storage Only MR Knee (09/19/2022 12:00 AM EDT) Narrative [facility] - 02/11/2023 5:05 AM EDT This exam is auto-finalizing. It's purpose is for storage only. Baron STANFORD IMG FILM LIBRARY O RDERABLES [place], [place] documented in this encounter Visit Diagnoses Not on filedocumented in this encounter Care Teams Hearing Screener Relationship Specialty Start Date End Date Unknown None PCP - General 02/24/22 01/31/23 documented as of this encounter
--- OUTSIDE RECORDS SUMMARY | 2024-05-02 09:58 | XMS_ITS | Encounter Summary ---
Author Organization [facility] [place] [address] Care Team Providers Care Licensed Loan Officer Assistant Name Role Phone Baron Hobson Primary Care Provider +1- [phone] Encounter Details Date Type Department Care Team (Late st Contact Info) Description 07/02/2023 Telephone [place] [address] Darwin Noel MD [facility] [place] [address] Social History Tobacco Use Types Packs/Day Years [...] is almost there. * Telephone Encounter - [facility] - 07/02/2023 8:47 AM EST Spoke with Patient. She was having shortness of breath. Tenderness on neck. Issues swallowing. Patient stated she was going to [facility] ED. documented in this encounter Plan of Treatment Upcoming Encounters Date Type Department Care Team (Late st Contact Info) Description 07/08/2024 11:00 AM EST Office [place] [address] Clinic, Dr Alfaro Team None documented as of this encounter Visit Diagnoses Not on filedocumented in this encounter Care Teams Licensed Loan Officer Assistant Relationship Specialty Start Date End Date Baron Hobson PA [address] [place] [address] PCP - General Family Medicine 02/01/23 documented as of this encounter
--- OUTSIDE RECORDS SUMMARY | 2024-05-02 09:58 | XMS_ITS | Encounter Summary ---
Author [place] [address] Care Team Providers Care Antique Automobiles Repairer Name Role Phone Unknown Primary Care Provider Unavailabl e Reason for Referral * Diagnostic Test (Routine) - Closed Specialty Diagnoses / Procedures Referred By Contac t Referred To Contact Radiology Diagnoses Aneurysm of ophthalmic artery Procedures MRI Angiogram Head wo Contrast (Generic) Dennise Jaimes APRN [facility] [place] [address] [place] [address] Referral ID Status Reason Start Date Expiration Date V isits Requested Visits Authorized [id number] Closed Specialty Service Requested 11/24/2021 05/26/2023 1 1 Reason for Visit * Diagnostic Test (Routine) - Closed Specialty Diagnoses / Procedures Referred By Contac t Referred To Contact Radiology Diagnoses Aneurysm of ophthalmic artery Procedures MRI Angiogram Head wo Contrast (Generic) Dennise Jaimes APRN [facility] [place] [address] [place] [address] Referral ID Status Reason Start Date Expiration Date V isits Requested Visits Authorized [id number] Closed Specialty Service Requested 11/24/2021 05/26/2023 1 1 Encounter Details Date Type Department Care Team (Latest Contact Info) Description 12/21/2022 11:10 AM EDT - 12/21/2022 11:59 PM EDT [place] [address] Dennise Jaimes APRN [facility] [place] [address] Aneurysm of ophthalmic artery Discharge Disposition: Home [...] mcg/actuation HFA Aerosol Inhaler as needed. 10/08/2019 EPINEPHrine 0.3 mg/0.3 mL Auto-Injector as needed. albuteroL 90 mcg/actuation HFA Aerosol Inhaler INHALE 2 PUFFS EVERY 6 HOURS NEEDED FOR SHORTNESS OF BREATH OR WHEEZING 10/14/2021 b complex vitamins Capsule Take 1 capsule by mouth daily. ascorbic acid, Vitamin C, (Vitamin C) 250 mg Tablet Take 250 mg by mouth as needed. When remembered FLUoxetine (PROzac) 20 mg Capsule 1 capsule daily. 06/24/2019 08/14/2023 documented as of this encounter Plan of Treatment Upcoming Encounters Date Type Department Care Team (Late st Contact Info) Description 07/08/2024 11:00 AM EST [place] [address] Clinic, Dr Alfaro Team None documented as [...] who have questions please contact the health resident care manager rn that requested your imaging first. ? Electronically signed by: Naazrio Cedillo MD, [facility] ([phone]), at 12/21/2022 6:39 PM Narrative 12/21/2022 6:39 [...] patients who have questions please contactthe health resident care manager rn that requested your imaging first. Electronically signed by: Nazario Cedillo MD, [facility]([phone]), at 12/21/2022 6:39 PM Dennise Jaimes APRN [facility] documented in this encounter Visit Diagnoses Diagnosis Aneurysm of ophthalmic artery Cerebral aneurysm, nonruptured documented in this encounter Care Teams Antique Automobiles Repairer Relationship Specialty Start Date End Date Unknown None PCP - General 02/24/22 01/31/23 documented as of this encounter
--- OUTSIDE RECORDS SUMMARY | 2024-05-02 09:58 | XMS_ITS | Encounter Summary ---
Author Organization [facility] [place] [address] Care Team Providers Care Warehouse Freight Handler Name Role Phone Terri Thrasher APRN Primary Care Provider + Encounter Details Date Type Department Care Team (Late st Contact Info) Description 09/24/2018 Ancillary Procedure Radiology Library at [facility] [place] [address] Huang Nicole MD [facility] [place] [address] Social History Tobacco Use Types Packs/Day Years [...] 11:00 AM EST Office Visit Orthopaedics at [facility] [place] [address] Clinic, Dr Alfaro Team None documented as of this encounter Procedures Procedure Name Priority Date/Time Associated Diagnosis Comments FILM LIBRARY STORAGE ONLY MR HEAD Routine 09/24/2018 12:00 AM EDT documented in this encounter Results * Film Library- Storage Only MR Head (09/24/2018 12:00 AM EDT) Narrative [facility] - 11/07/2018 10:16 AM EDT This exam is auto-finalizing. It's purpose is for storage only. Huang Nicole MD IMG FILM LIBRARY ORD ERABLES [place], [place] documented in this encounter Visit Diagnoses Not on filedocumented in this encounter Care Teams Warehouse Freight Handler Relationship Specialty Start Date End Date Terri Thrasher APRN PCP - General Family Medicine 08/01/18 02/14/21 documented as of this encounter
--- OUTSIDE RECORDS SUMMARY | 2024-05-02 09:58 | XMS_ITS | Encounter Summary ---
Author Organization [facility] Address [facility] [place] [address] Care Team Providers Care Rail Car Repair Carman Name Role Phone Unknown Primary Care Provider Unavailabl e Encounter Details Date Type Department Care Team (Late st Contact Info) Description 01/04/2023 10:30 AM EDT Office [place] [address] Darwin Noel MD [facility] [place] [address] Thyroid nodule (Primary Dx) Social History Tobacco [...] from previous office note on 09/05/21 from Hecotr Navas DO 40-year-old female presents for evaluation of thyroid nodules. She also has symptoms of decreased appetite with associated weight loss and cold intolerance. She reports that she recently has had thyroid labs checked but we do not have a copy of these. We will try to obtain these from [facility]. Bedside ultrasound today reveals bilateral mixed solid/cystic [...] tired. Gained 30 lbs in a year. Archbald something stuck in her throat. Denied dysphagia. [...] your patient. D/W Dr. Adali Noel MD [facility] [place] PGY-5, Fellow Pager #[phone] * Darwin Noel MD - 01/04/2023 10:30 AM EDT ENDOCRINOLOGY THYROID ULTRASOUND REPORT Patient:Holly Mcnally, [id number] Date of exam: 01/04/2023 Indication: thyroid nodules [...] US in 1 year. Darwin Noel MD [facility] [place] Endocrinology PGY-4, Fellow Pager #[phone] * EchtFrancisca MD - 01/04/2023 10:30 AM EDT Patient seen with Dr. Noel. I agree with the assessment and plan as documented and was involved in all medical decision making. Based on imaging, do not need to FNA her thyroid nodules but recommend repeat ultrasound in 1 year. Francisca Bro MD Semiconductor Wafers Etcher Strippercore winder machine operator Endocrinology Section [facility] documented in this encounter Plan of Treatment Upcoming Encounters Date Type Department Care Team (Late st Contact Info) Description 07/08/2024 11:00 AM EST Office [place] [address] Clinic, Dr Alfaro Team None documented as of this encounter Procedures Procedure Name Priority Date/Time Associated Diagnosis Comments TSH CASCADE Routine 01/04/2023 11:24 AM EDT Thyroid nodule documented in this encounter Results * TSH [place] (01/04/2023 11:24 AM EDT) Thyroid Stimulating Hormone 1.46 0.27 - 4.20 mcIU/mL [facility] Comment: Reference Interval (mcIU/mL): Females: ??First Trimester: 0.23-3.88 ??Second Trimester: 0.22-3.90 ??Third Trimester: 0.44-4.66 Blood 01/04/2023 11:2 4 AM EDT 01/04/2023 11:49 AM EDT Narrative Resulting Agency Comment Spec In Lab Francisca Bro MD CHEMISTRY ORDERABLES [facility] [place] [address] documented in this encounter Visit Diagnoses Diagnosis Thyroid nodule- Primary Nontoxic uninodular goiter documented in this encounter Care Teams Rail Car Repair Carman Relationship Specialty Start Date End Date Unknown None PCP - General 02/24/22 01/31/23 documented as of this encounter
--- OUTSIDE RECORDS SUMMARY | 2024-05-02 09:58 | XMS_ITS | Encounter Summary ---
Author Organization [facility] [place] [address] Care Team Providers Care Geospatial Applications Developer Name Role Phone Terri Thrasher NAMRATA Primary Care Provider + Reason for Visit * Reason Comments Nicotine Dependence Encounter Details Date Type Department Care Team (Late st Contact Info) Description 10/10/2018 [place] [address] Dot Garcia APRN [facility] [place] [address] Nicotine Dependence Social History Tobacco Use Types [...] 11:00 AM EST Office [place] [address] Clinic, Dr Alfaro Team None documented as of this encounter Visit Diagnoses Not on filedocumented in this encounter Care Teams Geospatial Applications Developer Relationship Specialty Start Date End Date Terri Thrasher APRN PCP - General Family Medicine 08/01/18 02/14/21 documented as of this encounter
--- OUTSIDE RECORDS SUMMARY | 2024-05-02 09:58 | XMS_ITS | Encounter Summary ---
[place] [address] Care Team Providers Care Campaign Director Name Role Phone Terri Thrasher APRN Primary Care Provider + Reason for Referral * Diagnostic Test (Routine) - Closed Specialty Diagnoses / Procedures Referred By Contjose t Referred To Contact Radiology Diagnoses Cerebral aneurysm without rupture Procedures MRI Angiogram Head wo Contrast (Generic) Eugenio Hernandez MD [facility] [place] [address] [place] [address] Referral ID Status Reason Start Date Expiration Date V isits Requested Visits Authorized [id number] Closed Specialty Service Requested 11/12/2019 05/13/2021 1 1 Reason for Visit * Reason Comments Follow-up Encounter Details Date Type Department Care Team (Late st Contact Info) Description 11/11/2019 3:30 PM EDT Office [place] [address] Eugenio Hernandez MD [facility] [place] [address] Cerebral aneurysm without rupture Social [...] 11:00 AM EST Office [place] [address] Clinic, Dr Alfaro Team None [...] have questions please contact the health care aid that requested your imaging first. ? Electronically signed by: Nazario Cedillo MD, [facility] ([phone]), at 11/02/2020 3:49 PM Narrative 11/02/2020 3:49 [...] motion artifact limiting the study however the [place] is fairly well visualized. The [...] motion artifact limiting the study however the [place] isfairly well visualized. The small [...] who have questions please contactthe health care aid that requested your imaging first. Electronically signed by: Nazario Cedillo MD, [facility]([phone]), at 11/02/2020 3:49 PM Eugenio Hernandez MD IMG MRI ORDERABLES documented in this encounter Visit Diagnoses Diagnosis Cerebral aneurysm without rupture Cerebral aneurysm, nonruptured Cerebral aneurysm without rupture Cerebral aneurysm, nonruptured documented in this encounter Care Teams Campaign Director Relationship Specialty Start Date End Date Terri Thrasher APRN PCP - General Family Medicine 08/01/18 02/14/21 documented as of this encounter
--- OUTSIDE RECORDS SUMMARY | 2024-05-02 09:58 | XMS_ITS | Encounter Summary ---
[place] [address] Care Team Providers Care Cistern Room Working Supervisor Name Role Phone Unknown Primary Care Provider [...] 11:00 AM EST Office [place] [address] Clinic, Dr Alfaro Team None documented as of this encounter Visit Diagnoses Not on filedocumented in this encounter Care Teams Cistern Room Working Supervisor Relationship Specialty Start Date End Date Unknown None PCP - General 02/24/22 01/31/23 documented as of this encounter
--- OUTSIDE RECORDS SUMMARY | 2024-05-02 09:58 | XMS_ITS | Encounter Summary ---
[place] [address] Care Team Providers Care Instant Powder Supervisor Name Role Phone Terri Thrasher NAMRATA Primary Care Provider + Reason for Referral * Diagnostic Test (Routine) - Closed Specialty Diagnoses / Procedures Referred By Jesika maddox Referred To Contact Radiology Diagnoses Cerebral aneurysm without rupture Procedures MRI Angiogram Head wo Contrast (Generic) Eugenio Hernandez MD [facility] [place] [address] [place] [address] Referral ID Status Reason Start Date Expiration Date V isits Requested Visits Authorized [id number] Closed Specialty Service Requested 11/12/2019 05/13/2021 1 1 Reason for Visit * Diagnostic Test (Routine) - Closed Specialty Diagnoses / Procedures Referred By Contac t Referred To Contact Radiology Diagnoses Cerebral aneurysm without rupture Procedures MRI Angiogram Head wo Contrast (Generic) Eugenio Hernandez MD [facility] [place] [address] [place] [address] Referral ID Status Reason Start Date Expiration Date V isits Requested Visits Authorized [id number] Closed Specialty Service Requested 11/12/2019 05/13/2021 1 1 Encounter Details Date Type Department Care Team (Latest Contact Info) Description 11/02/2020 1:31 PM EDT - 11/02/2020 11:59 PM EDT Hospital [place] [address] Eugenio Hernandez MD [facility] [place] [address] Cerebral aneurysm without rupture Discharge Disposition: Home [...] 11:00 AM EST Office [place] [address] Clinic, Dr Alfaro Team None [...] who have questions please contact the health life care planner that requested your imaging first. ? Electronically signed by: Nazario Cedillo MD, [facility] ([phone]), at 11/02/2020 3:49 PM Narrative 11/02/2020 3:49 [...] motion artifact limiting the study however the [place] is fairly well visualized. The [...] motion artifact limiting the study however the [place] isfairly well visualized. The small [...] patients who have questions please contactthe health life care planner that requested your imaging first. Electronically signed by: Nazario Cedillo MD, [facility]([phone]), at 11/02/2020 3:49 PM Eugenio Hernandez MD IMG MRI ORDERABLES documented in this encounter Visit Diagnoses Diagnosis Cerebral aneurysm without rupture Cerebral aneurysm, nonruptured documented in this encounter Care Teams Instant Powder Supervisor Relationship Specialty Start Date End Date Terri Thrasher APRN PCP - General Family Medicine 08/01/18 02/14/21 documented as of this encounter
--- OUTSIDE RECORDS SUMMARY | 2024-05-02 09:58 | XMS_ITS | Encounter Summary ---
Author Organization [facility] [place] [address] Care Team Providers Care Retail Service Lead Merchandiser Name Role Phone Terri Thrasher APRN Primary Care Provider + Encounter Details Date Type Department Care Team (Late st Contact Info) Description 11/02/2020 3:30 PM EDT [place] [address] Eugenio Hernandez MD [facility] [place] [address] Cerebral aneurysm without rupture Social History Tobacco [...] 11:00 AM EST Office [place] [address] Clinic, Dr Alfaro Team None documented as of this encounter Visit Diagnoses Diagnosis Cerebral aneurysm without rupture Cerebral aneurysm, nonruptured documented in this encounter Care Teams Retail Service Lead Merchandiser Relationship Specialty Start Date End Date Terri Thrasher APRN PCP - General Family Medicine 08/01/18 02/14/21 documented as of this encounter
--- OUTSIDE RECORDS SUMMARY | 2024-05-02 09:58 | XMS_ITS | Encounter Summary ---
Author Organization [facility] [place] [address] Care Team Providers Care Senior Software Analyst Name Role Phone Baron Hobson Primary Care Provider +1- [phone] Encounter Details Date Type Department Care Team (Late st Contact Info) Description 07/02/2023 Telephone [place] [address] Darwin Noel MD [facility] [place] [address] Social History Tobacco Use Types Packs/Day Years [...] 11:00 AM EST Office [place] [address] Clinic, Dr Alfaro Team None documented as of this encounter Visit Diagnoses Not on filedocumented in this encounter Care Teams Senior Software Analyst Relationship Specialty Start Date End Date Baron Hobson PA [address] [place] [address] PCP - General Family Medicine 02/01/23 documented as of this encounter
--- OUTSIDE RECORDS SUMMARY | 2024-05-02 09:58 | XMS_ITS | Encounter Summary ---
Author Organization [facility] [place] [address] Care Team Providers Care Insole Presser Name Role Phone Terri Thrasher APRN Primary Care Provider + Encounter Details Date Type Department Care Team (Late st Contact Info) Description 09/24/2018 12:05 AM EDT Ancillary Procedure Radiology Library at [place] [address] Huang Nicole MD [facility] [place] [address] Social History Tobacco Use Types Packs/Day Years [...] 11:00 AM EST Office Visit Orthopaedics at [facility] [place] [address] Clinic, Dr Alfaro Team None documented as of this encounter Procedures Procedure Name Priority Date/Time Associated Diagnosis Comments FILM LIBRARY STORAGE ONLY MR HEAD Routine 09/24/2018 12:05 AM EDT documented in this encounter Results * Film Library- Storage Only MR Head (09/24/2018 12:05 AM EDT) Narrative [facility] - 11/07/2018 10:29 AM EDT This exam is auto-finalizing. It's purpose is for storage only. Huang Nicole MD IMG FILM LIBRARY ORD ERABLES [place], [place] documented in this encounter Visit Diagnoses Not on filedocumented in this encounter Care Teams Insole Presser Relationship Specialty Start Date End Date Terri Thrasher, AIR CONDITIONING COIL ASSEMBLER PCP - General Family Medicine 08/01/18 02/14/21 documented as of this encounter
--- OUTSIDE RECORDS SUMMARY | 2024-05-02 09:58 | XMS_ITS | Encounter Summary ---
Author Organization [facility] [place] [address] Care Team Providers Care Fast Food Restaurant Manager Name Role Phone Terri Thrasher FIRST LINE SUPERVISOR Primary Care Provider + Encounter Details Date Type Department Care Team (Late st Contact Info) Description 05/22/2019 [place] [address] Jenny Ferrara Social History Tobacco Use Types [...] 11:00 AM EST Office [place] [address] Clinic, Dr Alfaro Team None documented as of this encounter Visit Diagnoses Not on filedocumented in this encounter Care Teams Fast Food Restaurant Manager Relationship Specialty Start Date End Date Terri Thrasher APRN PCP - General Family Medicine 08/01/18 02/14/21 documented as of this encounter
--- OUTSIDE RECORDS SUMMARY | 2024-05-02 09:58 | XMS_ITS | Encounter Summary ---
Author Organization [facility] [place] [address] Care Team Providers Care Scale Shooter Name Role Phone Baron Hobson Primary Care Provider [phone] Encounter Details Date Type Department Care Team (Late st Contact Info) Description 01/10/2024 11:30 AM EDT Office [place] [phone] Alma Delia Martinez MD [facility] [place] [address] Thyroid nodule Social History Tobacco Use Types [...] symptoms. She started following in our clinic [id number]. She has 3 TR4 nodules that we [...] 1.46 ENDOCRINOLOGY THYROID ULTRASOUND REPORT Patient:Holly Mcnally, [id number] Date of exam: 01/10/2024 Comparison: 01/2023 Real time images of the thyroid gland were obtained and saved using a [employer] US machine. All measurements are given as [...] with Dr. Comi. Alma Delia Martinez PGY-5 [facility] [place] * Alma Delia Martinez MD - 01/10/2024 11:30 AM EDT ENDOCRINOLOGY THYROID ULTRASOUND REPORT Patient:Holly Mcnally, [id number] Date of exam: 01/10/2024 Comparison: 01/2023 Real time images of the thyroid gland were obtained and saved using a [employer] US machine. All measurements are given as [...] the ultrasound procedure. Alma Delia Martinez PGY-5. [facility] [place]. * Poncho De La Cruz MD [...] 11:00 AM EST Office [place] [address] Clinic, Dr Alfaro Team None documented as of this encounter Results * TSH Schuyler (01/10/2024 12:20 PM EDT) Thyroid Stimulating Hormone 1.80 0.27 - 4.20 mcIU/mL 01/10/2024 1:18 PM EDT [facility] Comment: Reference Interval (mcIU/mL): ?? Females: ? First Trimester: 0.23-3.88 ? Second Trimester: 0.22-3.90 ? Third Trimester: 0.44-4.66 Blood VENOUS BLOOD SPECIMEN / Unknown Venipuncture / Unknown 01/10/2024 12:20 PM EDT 01/10/2024 12:20 PM EDT Poncho De La Cruz MD CHEMISTRY ORDERABLES [facility] [place] [address] documented in this encounter Visit Diagnoses Diagnosis Thyroid nodule Nontoxic uninodular goiter documented in this encounter Care Teams Scale Shooter Relationship Specialty Start Date End Date Baron Hobson PA [address] [place] [address] PCP - General Family Medicine 02/01/23 documented as of this encounter
--- OUTSIDE RECORDS SUMMARY | 2024-05-02 09:59 | XMS_ITS | Encounter Summary ---
Author [place] [address] Care Team Providers Care Sales Representative Metals Name Role Phone Randell Haji MD Primary Care Provider [phone] Encounter Details Date Type Department Care Team (Late st Contact Info) Description 02/11/2017 Telephone [place] [address] Lola Kumar Social History Tobacco [...] AM EST Office [place] [address] Clinic, Dr Alfaro Team None documented as of this encounter Visit Diagnoses Not on filedocumented in this encounter Care Teams Sales Representative Metals Relationship Specialty Start Date End Date Randell Haji MD [address] [place] [phone] PCP - General 04/25/10 07/31/18 documented as of this encounter
--- OUTSIDE RECORDS SUMMARY | 2024-05-02 09:59 | XMS_ITS | Encounter Summary ---
Author Organization [facility] [place] [address] Care Team Providers Care Auditor Internal Name Role Phone Randell Haji MD Primary Care Provider [phone] Encounter Details Date Type Department Care Team (Late st Contact Info) Description 04/30/2018 Ancillary Procedure Radiology Library at [facility] [place] [address] Terri Thrasher, OCULAR CARE TECHNICIAN [address] [place] [address] Social History Tobacco Use Types Packs/Day Years [...] 11:00 AM EST Office Visit Orthopaedics at [facility] [place] [address] Clinic, Dr Alfaro Team None documented as of this encounter Procedures Procedure Name Priority Date/Time Associated Diagnosis Comments FILM LIBRARY STORAGE ONLY DX ANKLE Routine 04/30/2018 12:00 AM EST documented in this encounter Results * Film Library- Storage Only DX Ankle (04/30/2018 12:00 AM EST) Narrative [facility] - 08/05/2018 2:00 PM EST This exam is for storage only and is auto-finalizing. Terri Thrasher APRN IMG FILM LIBRARY ORD ERABLES [facility] [place], [place] documented in this encounter Visit Diagnoses Not on filedocumented in this encounter Care Teams Auditor Internal Relationship Specialty Start Date End Date Randell Haji MD [address] [place] [phone] PCP - General 04/25/10 07/31/18 documented as of this encounter
--- OUTSIDE RECORDS SUMMARY | 2024-05-02 09:59 | XMS_ITS | Encounter Summary ---
Author Organization [facility] [place] [address] Care Team Providers Care Service Shop Foreman Name Role Phone Terri Thrasher NAMRATA Primary Care Provider + Encounter Details Date Type Department Care Team (Late st Contact Info) Description 09/08/2018 Telephone [place] [address] Jenny Ferrara Social History Tobacco Use Types [...] from school Best number to reach caller: [phone] Reason for call: Pt called to inquire [...] 11:00 AM EST Office [place] [address] Clinic, Dr Alfaro Team None documented as of this encounter Visit Diagnoses Not on filedocumented in this encounter Care Teams Service Shop Foreman Relationship Specialty Start Date End Date Terri Thrasher APRN PCP - General Family Medicine 08/01/18 02/14/21 documented as of this encounter
--- OUTSIDE RECORDS SUMMARY | 2024-05-02 09:59 | XMS_ITS | Encounter Summary ---
[place] [address] Care Team Providers Care Wood Lather Name Role Phone Terri Thrasher NAMRATA Primary Care Provider + Reason for Referral * Diagnostic Test (Routine) - Closed Specialty Diagnoses / Procedures Referred By Jesika maddox Referred To Contact Radiology Diagnoses Cerebral aneurysm without rupture Procedures IR Arteriogram [facility] [place] [facility] [address] [place] [address] [facility] [place] [address] Referral ID Status Reason Start Date Expiration Date V isits Requested Visits Authorized [id number] Closed Specialty Service Requested 09/08/2018 09/08/2019 1 1 Encounter Details Date Type Department Care Team (Late st Contact Info) Description 09/08/2018 Orders [place] [address] Mallory Delgado RN Cerebral aneurysm [...] 11:00 AM EST Office [place] [address] Clinic, Dr Alfaro Team None documented as [...] number below. ? Electronically signed by: Eugenio Hernandez, [facility] ([phone]), at 10/21/2018 5:57 PM Narrative 10/21/2018 5:57 [...] 125 cm Glidewire, 0.035 inch J-wire, 5 Eritrean Elizabeth sheath, 5Fr vert catheter, Mynx vascular closure device. TECHNIQUE: The patient was brought to the angiography suite. The right groin was sterilely prepped and draped. Using micropuncture set, the femoral artery was accessed and the 5 Eritrean pinnacle sheath was placed, and double flushed. 5 Eritrean vert catheter was positioned in the descending [...] Puncture is above the bifurcation. Procedure Note Eugenoi Hernandez MD - 10/21/2018 EXAMINATION: IR ARTERIOGRAM [...] 0.035 125 cm Glidewire, 0.035 inch J-wire,5 Eritrean Elizabeth sheath, 5Fr vert catheter, Mynx vascular closure device. TECHNIQUE: The patient was brought to the angiography suite. The rightgroin was sterilely prepped and draped. Using micropuncture set, the femoral arterywas accessed and the 5 Eritrean pinnacle sheath was placed, and double flushed.5 Eritrean vert catheter was positioned in the descending [...] nonruptured documented in this encounter Care Teams Wood Lather Relationship Specialty Start Date End Date Terri Thrasher APRN PCP - General Family Medicine 08/01/18 02/14/21 documented as of this encounter
--- OUTSIDE RECORDS SUMMARY | 2024-05-02 09:59 | XMS_ITS | Encounter Summary ---
Author Organization [facility] [place] [address] Care Team Providers Care Kitman Name Role Phone Terri Thrasher APRN Primary Care Provider + Encounter Details Date Type Department Care Team (Latest Contact Info) Description 08/12/2018 10:45 AM EDT - 08/12/2018 4:32 PM EDT Hospital Encounter XRay at [address] [place] [address] Jaden Richter MD [facility] [place] [address] Left wrist pain Discharge Disposition: Home Social [...] 11:00 AM EST Office [place] [phone] Clinic, Dr Alfaro Team None documented as [...] number below. ? Electronically signed by: ROSETTA García [facility] ([phone]), at 08/12/2018 1:28 PM Narrative 08/12/2018 1:28 PM EDT EXAMINATION: XR [...] forearm documented in this encounter Care Teams Kitman Relationship Specialty Start Date End Date Terri Thrasher APRN PCP - General Family Medicine 08/01/18 02/14/21 documented as of this encounter
--- OUTSIDE RECORDS SUMMARY | 2024-05-02 09:59 | XMS_ITS | Encounter Summary ---
Author Organization [facility] [place] [address] Care Team Providers Care Er Nurse Name Role Phone Terri Thrasher APRN Primary Care Provider + Encounter Details Date Type Department Care Team (Late st Contact Info) Description 09/04/2018 [place] [address] Veronica Michael Social History Tobacco Use Types [...] to be called into [facility] in [place]. Can you put in order too for angio? Veronica Soria * Telephone Encounter - Veronica Michael - 09/04/2018 9:13 AM EDT Spoke to pt she would like to proceed with angio and embo, needs plavix called into [facility] as well requesting order from Dr. Hernandez for 5/6. * Telephone Encounter - Jesi Lunsford - 09/04/2018 9:02 AM EDT [facility] [place] * Telephone Encounter - Veronica Michael [...] 11:00 AM EST Office [place] [address] Clinic, Dr Alfaro Team None documented as of this encounter Visit Diagnoses Not on filedocumented in this encounter Care Teams Er Nurse Relationship Specialty Start Date End Date Terri Thrasher APRN PCP - General Family Medicine 08/01/18 02/14/21 documented as of this encounter
--- OUTSIDE RECORDS SUMMARY | 2024-05-02 09:59 | XMS_ITS | Encounter Summary ---
Author Organization [place] [address] Care Team Providers Care Power Checker Name Role Phone Terri Thrasher [employer] Primary Care Provider + Reason for Visit * Reason Comments Establish Care NXR Shena Heller Pa in second Opinion * Consultation (Routine) - Closed Specialty Diagnoses / Procedures Referred By Jesika maddox Referred To Contact Orthopaedics Diagnoses LONG STANDING HX OF LEF TSIDED WRIST PAIN, DX WITH DE QUERVAIN'S TENSYNOVITIS Terri Thrasher, [employer] [address] [place] [address] [facility] [address] [place] [phone] Referral ID Status Reason Start Date Expiration Date V isits Requested Visits Authorized [id number] Closed Consult, Test & Treat [facility] 08/01/2018 08/01/2019 1 1 Encounter Details Date Type Department Care Team (Late st Contact Info) Description 09/16/2018 10:20 AM EDT Office [place] [address] Chronic pain of left ankle [...] 1/2 ppd No alcohol use Works in [employer] Lives in [place], [place]. PMH: Patient Active Problem List Diagnosis [...] 11:00 AM EST Office [place] [address] Clinic, Dr Alfaro Team None documented as of this encounter Visit Diagnoses Diagnosis Chronic pain of left ankle documented in this encounter Care Teams Power Checker Relationship Specialty Start Date End Date Terri Thrasher APRN PCP - General Family Medicine 08/01/18 02/14/21 documented as of this encounter
--- OUTSIDE RECORDS SUMMARY | 2024-05-02 09:59 | XMS_ITS | Encounter Summary ---
Author Organization [facility] [place] [address] Care Team Providers Care Registered Medical Assistant Name Role Phone Terri Thrasher APRN Primary Care Provider + Reason for Referral * Consultation (Routine) - Closed Specialty Diagnoses / Procedures Referred By Contac t Referred To Contact Neurology Mil Darby MD [facility] [place] [address] [facility] Neurology [address] [place] [phone] Referral ID Status Reason Start Date Expiration Date V isits Requested Visits Authorized [id number] Closed Consult, Test & Treat 08/12/2018 08/12/2019 1 1 * Consultation (Routine) - Closed Specialty Diagnoses / Procedures Referred By Contac t Referred To Contact Neurosurgery Diagnoses Right infundibulum vs 4mm outpouching on CTA without corresponding symptoms. Mil Darby MD [facility] [place] [address] Eugenio Hernandez MD [facility] [place] [address] Referral ID Status Reason Start Date Expiration Date V isits Requested Visits Authorized [id number] Closed Consult, Test & Treat 08/12/2018 08/12/2019 1 1 Reason for Visit * Reason Comments Dizziness Encounter Details Date Type Department Care Team (Late st Contact Info) Description 08/12/2018 4:33 PM EDT - 08/12/2018 11:26 PM EDT Emergency Emergency Department [facility] [place] [address] Nathaniel Venegas MD [facility] [place] [address] Dizziness Discharge Disposition: Home Social History Tobacco [...] be sent through Care Everywhere. * Dizziness (Tajik) * Migraine Headache (Tajik) documented in this encounter ED Notes * [...] L Elbow flexion 5/5 R, 5/5 L Enzyme Chemist LE: 5/5 R, 5/5 L Hip flexion [...] gait 1821 Normal sinus rhythm, normal axis, MA, QRS and QTC are within normal limits. There is no evidence of arrhythmia or ischemic changes. EKG 12 Lead Wed Aug 13, 2018202 Culture Reflexed: No 0204 4 mm outpouching of the right ophthalmic artery origin, question aneurysm versus infundibulum. Normal CTA neck CT Angiogram Carotids & [place] - Medications and fluid administered: [...] Negative mcL Appearance UA Clear Clear Spec [place] UA 1.013 1.002 - 1.030 Color UA [...] is significant for: CT Angiogram Carotids & [place] Final Result 4 mm outpouching [...] exertion 3. Family history of sudden The [place] Syncope Rule: 1. History of CHF 2. Hct<30 3. EKG abnormalities 4. Present SOB 5. SBP<90 [place] Syncope Criteria, (Chastity Emerg Med. 2005;47(5):455-6. Epub [...] She was seen in the ED at [facility] and received IV fluids, reports that [...] LMP was mid July. Social Lives in [facility]) w/ and 2 children (7 and [...] bilaterally in upper and lower extremities, normal [id number] bilaterally, mild intention tremor close to target, [...] Negative mcL Appearance UA Clear Clear Spec [place] UA 1.013 1.002 - 1.030 Color UA [...] changes Imaging EXAMINATION: CT ANGIOGRAM CAROTIDS AND [place] ?? FINDINGS: CTA neck: Great vessel origins are widely patent. Subclavian arteries are normal. Bilateral common and internal carotid arteries are normal course and caliber. The vertebral arteries are normal. ?? CTA HEAD: 4 mm outpouching at the origin of the right ophthalmic artery. Probable infundibulum of the left ophthalmic artery origin. The MCAs, production assembly supervisor, and ACAs are normal. Complete [place] of [place]. Intradural vertebral arteries, basilar artery, [...] 11:00 AM EST [place] [address] Clinic, Dr Alfaro Team None Scheduled Referrals Name Type Priority Associated Diagnoses Order Schedule Referral to Neuro Interventional Radiology Outpatient Referral Routine Ordered: 08/12/2018 Referral to Neurology Outpatient Referral Routine Ordered: 08/12/2018 documented as of this encounter Procedures Procedure Name Priority Date/Time Associated Diagnosis Comments CT CAROTIDS AND [place] W CONTRAST STAT 08/12/2018 7:57 [...] encounter Results * CT Angiogram Carotids & [place] (08/12/2018 7:57 PM EDT) Anatomical [...] PM EDT EXAMINATION: CT ANGIOGRAM CAROTIDS AND [place] CLINICAL HISTORY: patient off balance, [...] the left ophthalmic artery origin. The MCAs, production assembly supervisor, and ACAs are normal. Complete [place] of [place]. Intradural vertebral arteries, basilar artery, and hemorrhage branches are normal... Procedure Note Mily DeA nda MD - 08/12/2018 EXAMINATION: CT ANGIOGRAM CAROTIDS AND [place] CLINICAL HISTORY: patient off balance, [...] of the left ophthalmic artery origin. The MCAs,production assembly supervisor, and ACAs are normal. Complete [place] of [place]. Intradural vertebralarteries, basilar artery, and [...] (Bezet) 390 ms MUSE SYSTEM Calculated P [place] 27 degrees MUSE SYSTEM Calculated R [place] 27 degrees MUSE SYSTEM Calculated T [place] 29 degrees MUSE SYSTEM INTERPRETATION Sinus bradycardia Otherwise normal ECG No previous ECGs available Confirmed by MD COBOS ALAN ([id number]) on 08/12/2018 11:07:51 PM MUSE SYSTEM 08/12/2018 4:19 PM EDT 08/12/2018 11:07 PM EDT Nathaniel Venegas MD ECG ORDERABLES MUSE SYSTEM * Blue Tube HOLD (08/12/2018 3:45 PM EDT) [facility] Blue Hold Sample in lab. [facility] Blood specimen (specimen) Venous Draw / Unknown 08/12/2018 3:45 PM EDT 08/12/2018 4:15 PM EDT Mack Kirk MD HEMATOLOGY ORDERABLE S [facility] [place] [address] * (ABNORMAL) Differential, Automated (08/12/2018 3:45 PM EDT) Neutrophil % 46.9 % [facility] Neutrophil Absolute 4.68 1.70 - 6.10 x10(3)/mc L [facility] Lymph % 38.9 % [facility] Lymphocytes Abs 3.9(H) 0.9 - 3.2 x10(3)/[facility] Monocyte % 6.9 % [facility] Monocyte Abs 0.7 0.3 - 0.9 x10(3)/ L [facility] Eos % 6.1 % [facility] Eosinophils Abs 0.6(H) 0.0 - 0.4 x10(3)/[facility] Basophil % 0.9 % [facility] Baso Absolute 0.1 0.0 - 0.1 x10(3)/ L [facility] Immature Gran % 0.30 % [facility] Comment: Immature granulocytes(IG's)percentage and absolute count will include metamyelocytes, myelocytes, and promyelocytes. Blood smears from CBCs yielding IG's will be scanned manually for concordance. If this scan disagrees with the automated IG or if promyelocytes are noted, a manual differential will be performed. Immature Gran Absolute 0.03 0.00 - 0.04 x10(3)/mc L [facility] Blood specimen (specimen) 08/12/2018 3:45 PM EDT 08/12/2018 4:15 PM EDT Narrative Resulting Agency Comment Spec In Lab Mack Kirk MD HEMATOLOGY ORDERABLE S Performing Organization Address City/[facility]/ZIP Co de Phone Number [facility] [place] [address] * (ABNORMAL) Hemogram (08/12/2018 3:45 PM EDT) White Blood Cell 10.0(H) 4.0 - 9.5 x10(3)/mc L [facility] Red Blood Cell 4.70 4.00 - 5.21 x10(6)/mc L [facility] Hemoglobin 14.5 11.7 - 15.5 gm/dL [facility] Hematocrit 42.4 35.7 - 45.8 % [facility] Mean Cell Volume 90.2 82.6 - 94.4 fL [facility] Mean Cell Hemoglobin 30.9 27.1 - 32.0 pg [facility] Mean Cell Hemoglobin Concentration 34.2 31.7 - 35.0 gm/dL [facility] Platelet 311 145 - 357 x10(3)/mc L [facility] RDW Standard Deviation 40.9 37.0 - 46.0 fL [facility] RDW coefficient of variation 12.5 11.5 - 14.1 % [facility] Mean Platelet Volume 9.2 7.6 - 12.9 fL [facility] NRBC% auto 0.0 % [facility] NRBC Absolute 0.000 0.000 - 0.000 x10(3)/mc L [facility] Blood specimen (specimen) 08/12/2018 3:45 PM EDT 08/12/2018 4:15 PM EDT Narrative Resulting Agency Comment Spec In Lab Mack Kirk MD HEMATOLOGY ORDERABLE S Performing Organization Address City/[facility]/ZIP Co de Phone Number [facility] [place] [address] * (ABNORMAL) Basic Metabolic Panel (non-fasting) (08/12/2018 3:45 PM EDT) Glucose 85 65 - 199 mg/dL [facility] Comment:Diabetes: >=200 mg/d L plus symptoms Blood Urea Nitrogen 7(L) 8 - 18 mg/dL [facility] Creatinine 0.75 0.70 - 1.20 mg/dL [facility] Sodium 143 135 - 145 mmol/L [facility] Potassium 3.9 3.5 - 5.0 mmol/L [facility] Comment: Please note: ??Patients with WBC >100,000 may have falsely elevated Potassium levels. ??For accurate Potassium quantification in these patients send serum separator tube (gold top) for subsequent determinations. ??Contact the Clinical Chemistry Laboratory if there are any questions. Chloride 103 98 - 107 mmol/L [facility] Carbon Dioxide 26 22 - 31 mmol/L [facility] Anion Gap 14 5 - 15 mmol/L [facility] Calcium 10.0 8.5 - 10.5 mg/dL [facility] Est Glomerular Filtration Rate 103 >=60 mL/min/1. 73 m?? [facility] Comment: The eGFR was calculated using the CKD-EPI equation. As with all creatinine based estimates of kidney function, eGFR values calculated with the CKD-EPI equation are not accurate in patients with acute kidney failure, extremes of body mass or the acutely ill. http://[employer]/[facility] eGFR 120 >=60 mL/min/1. 73 m?? [facility] Comment: The eGFR was calculated using the CKD-EPI equation. As with all creatinine based estimates of kidney function, eGFR values calculated with the CKD-EPI equation are not accurate in patients with acute kidney failure, extremes of body mass or the acutely ill. http://[employer] Blood specimen (specimen) 08/12/2018 3:45 PM EDT 08/12/2018 4:15 PM EDT Narrative Resulting Agency Comment Spec In Lab Nathaniel Venegas MD CHEMISTRY ORDERABLES [facility] [place] [address] * Urinalysis Microscopic Exam (08/12/2018 3:43 PM EDT) RBC, Urine 3 0 - 4 /HPF [facility] WBC, Urine 0 0 - 5 /HPF [facility] Urine specimen obtained by clean catch procedure (specimen) 08/12/2018 3:43 PM EDT 08/12/2018 4:18 PM EDT Narrative Resulting Agency Comment Spec In Lab Mack Kirk MD URINE ORDERABLES Performing Organization Address [facility]/ZIP Co de Phone Number [facility] [place] [address] * (ABNORMAL) Urinalysis with reflex Culture (08/12/2018 3:43 PM EDT) Glucose, Urine Dipstick Negative Negative mg/dL [facility] Protein, Urine Dipstick Negative Negative mg/dL [facility] Bilirubin, Urine Dipstick Negative Negative mg/dL [facility] Comment: Clinical correlation required for positive Urine Bilirubin results as false positive may occur with some drugs and drug related products. If a false positive is suspected a serum total bilirubin should be considered if clinically indicated. Urobilinogen, Urine Dipstick Normal Normal mg/dL [facility] pH, Urn (dipstick) 6.0 5.0 - 8.0 [facility] Blood, Urine Dipstick Small(A) Negative mg/dL [facility] Ketone, Urine Dipstick Negative Negative mg/dL [facility] Nitrite, Urine Dipstick Negative Negative [facility] Leukocytes, Urine Dipstick Negative Negative [facility] Appearance, Urine Dipstick Clear Clear [facility] Specific [place] Urine Automated 1.013 1.002 - 1.030 [facility] Color, Urine Dipstick Yellow Yellow [facility] Reflex to Culture No [facility] Urine specimen obtained by clean catch procedure (specimen) 08/12/2018 3:43 PM EDT 08/12/2018 4:18 PM EDT Narrative Resulting Agency Comment Spec In Lab Nathaniel Venegas MD URINE ORDERABLES [facility] [place] [address] * POCT urine (08/12/2018) POC Urine HCG [...] 1833 (Given - Provid er: Joan Palencia, NANCY) lactated Ringers 1,000 mL IV bolus (COMPLETED) at 2,000 mL/hr, Intravenous, ONCE, 1 dose, On Sat08/12/18 at 1856 1856 (New Bag - Prov [...] Brady) documented in this encounter Care Teams Registered Medical Assistant Relationship Specialty Start Date End Date Terri Thrasher, SPA DIRECTOR PCP - General Family Medicine 08/01/18 02/14/21 documented as of this encounter
--- OUTSIDE RECORDS SUMMARY | 2024-05-02 09:59 | XMS_ITS | Encounter Summary ---
Author Organization [facility] Address [facility] [place] [address] Care Team Providers Care System Archive Analyst Name Role Phone Terri Thrasher TAPE FOLDING MACHINE OPERATOR Primary Care Provider + Reason for Visit * Reason Comments Establish Care left wrist pain * Consultation (Routine) - Closed Specialty Diagnoses / Procedures Referred By Jesika maddox Referred To Contact Orthopaedics Diagnoses Achilles tendinitis, left leg LEFT ACHILLES TENDINITIS Terri Thrasher, TAPE FOLDING MACHINE OPERATOR [address] [place] [address] [facility] Orthopaedics [address] [place] [phone] Referral ID Status Reason Start Date Expiration Date V isits Requested Visits Authorized [id number] Closed Consult, Test & Treat Connection Center 08/01/2018 08/01/2019 1 1 Encounter Details Date Type Department Care Team (Late st Contact Info) Description 08/12/2018 11:00 AM EDT Office [place] [phone] Agatha Barragan PA [facility] [place] [address] Carpal tunnel syndrome on left Social History [...] NAME: Holly Mcnally AGE: 37 y.o. MR#: [id number] DATE OF VISIT: 08/12/2018 CHIEF COMPLAINT: New [...] extension of MCP, PIP, DIP and isolation Daub Color Mixer strength: Comparable to contralateral side + tinnels [...] 11:00 AM EST Office [place] [address] Clinic, Dr Alfaro Team None documented as of this encounter Visit Diagnoses Diagnosis Carpal tunnel syndrome on left Carpal tunnel syndrome documented in this encounter Care Teams System Archive Analyst Relationship Specialty Start Date End Date Terri Thrasher APRN PCP - General Family Medicine 08/01/18 02/14/21 documented as of this encounter
--- OUTSIDE RECORDS SUMMARY | 2024-05-02 09:59 | XMS_ITS | Encounter Summary ---
Author Organization [facility] [place] [address] Care Team Providers Care Production Expediter Name Role Phone Randell Haji MD Primary Care Provider [phone] Reason for Visit * Reason Onset Date Comments Follow-up 10/13/2015 Encounter Details Date Type Department Care Team (Late st Contact Info) Description 10/13/2015 Telephone [place] [address] Shabana Romo APRN [facility] [place] [place] [address] Follow-up Social History Tobacco Use Types Packs/Day [...] 11:00 AM EST Office [place] [address] Clinic, Dr Alfaro Team None documented as of this encounter Visit Diagnoses Not on filedocumented in this encounter Care Teams Production Expediter Relationship Specialty Start Date End Date Randell Haji MD [address] [place] [phone] PCP - General 04/25/10 07/31/18 documented as of this encounter
--- OUTSIDE RECORDS SUMMARY | 2024-05-02 09:59 | XMS_ITS | Encounter Summary ---
Author Organization [facility] [place] [address] Care Team Providers Care Air Crew Officer Name Role Phone Randell Haji MD Primary Care Provider [phone] Encounter Details Date Type Department Care Team (Late st Contact Info) Description 06/08/2016 Ancillary Procedure Radiology Library at [facility] [place] [address] Eh Brunner PA [address] [place], [place] [address] Social History Tobacco Use Types Packs/Day Years [...] 11:00 AM EST Office Visit Orthopaedics at [facility] [place] [address] Clinic, Dr Alfaro Team None documented as [...] Eh [facility] FILM LIBRARY ORD ERABLES [facility] RAD [place], [place] documented in this encounter Visit Diagnoses Not on filedocumented in this encounter Care Teams Air Crew Officer Relationship Specialty Start Date End Date Randell Haji MD [address] [place] [phone] PCP - General 04/25/10 07/31/18 documented as of this encounter
--- OUTSIDE RECORDS SUMMARY | 2024-05-02 09:59 | XMS_ITS | Encounter Summary ---
Author Organization [facility] [place] [address] Care Team Providers Care Neurophysiology Tech Name Role Phone Randell Haji MD Primary Care Provider [phone] Encounter Details Date Type Department Care Team (Late st Contact Info) Description 09/15/2015 Orders Only [place]ematology [place] [phone] Shabana Romo [facility] [place] [address] Breast pain Social History Tobacco Use Types [...] 11:00 AM EST Office [place] [phone] Clinic, Dr Alfaro Team None documented as of this encounter Visit Diagnoses Diagnosis Breast pain Mastodynia documented in this encounter Care Teams Neurophysiology Tech Relationship Specialty Start Date End Date Randell Haji MD [address] [place] [phone] PCP - General 04/25/10 07/31/18 documented as of this encounter
--- OUTSIDE RECORDS SUMMARY | 2024-05-02 09:59 | XMS_ITS | Encounter Summary ---
Author Organization [facility] [place] [address] Care Team Providers Care Electrician Supervisor Name Role Phone Nathen Duffy MD Primary Care Provider [phone] Reason for Visit * Reason Comments Breast Problem * Consultation (Routine) - Closed Specialty Diagnoses / Procedures Referred By Contac t Referred To Contact Hematology and Oncology Diagnoses Breast pain Nathen Duffy MD [address] [place] [phone] [facility] Hem Onc [address] [place] [address] Referral ID Status Reason Start Date Expiration Date Visits Re quested Visits Authorized [id number] Closed 09/15/2015 09/14/2016 1 1 Encounter Details Date Type Department Care Team (Late st Contact Info) Description 10/07/2015 11:00 AM EDT Office [place] [phone] Shabana Romo, TWISTING DEPARTMENT END FINDER [facility] [place] [address] Chronic mastitis of right breast Social History [...] this encounter Progress Notes * Shabana Romo, TWISTING DEPARTMENT END FINDER - 10/07/2015 12:45 PM EDT Ms. Mcnally [...] Will have her outside mammogram reviewed at [facility]. Surgical follow up based on outcome of [...] 11:00 AM EST Office [place] [address] Clinic, Dr Alfaro Team None documented as of this encounter Visit Diagnoses Diagnosis Chronic mastitis of right breast documented in this encounter Care Teams Electrician Supervisor Relationship Specialty Start Date End Date Nathen Duffy MD [address] [place] [phone] PCP - General 04/25/10 07/31/18 documented as of this encounter
--- OUTSIDE RECORDS SUMMARY | 2024-05-02 09:59 | XMS_ITS | Encounter Summary ---
Author Organization [facility] [place] [address] Care Team Providers Care Professor Of Literacy Name Role Phone Randell Haji MD Primary Care Provider [phone] Reason for Visit * Reason Onset Date Comments Follow-up 10/12/2015 Encounter Details Date Type Department Care Team (Late st Contact Info) Description 10/12/2015 Telephone [place] [address] Shabana Romo APRN [facility] [place] [address] Follow-up Social History Tobacco Use Types Packs/Day [...] 11:00 AM EST Office [place] [address] Clinic, Dr Alfaro Team None documented as of this encounter Visit Diagnoses Not on filedocumented in this encounter Care Teams Professor Of Literacy Relationship Specialty Start Date End Date Randell Haji MD [address] [place] [phone] PCP - General 04/25/10 07/31/18 documented as of this encounter
--- OUTSIDE RECORDS SUMMARY | 2024-05-02 09:59 | XMS_ITS | Encounter Summary ---
Author Organization [facility] [place] [address] Care Team Providers Care Silk Blocker Name Role Phone Randell Haji MD Primary Care Provider [phone] Reason for Visit * Reason Comments Follow-up Encounter Details Date Type Department Care Team (Late st Contact Info) Description 02/27/2017 11:00 AM EDT Office [place] [address] Shabana Romo BODY CLEANER [facility] [place] [address] Chronic mastitis, unspecified laterality Social History Tobacco [...] October of 2015 to discuss management of usp right gary ductal mastitis. 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 She does smoke (she andher plan [...] 11:00 AM EST Office [place] [address] Clinic, Dr Alfaro Team None documented as of this encounter Visit Diagnoses Diagnosis Chronic mastitis, unspecified laterality documented in this encounter Care Teams Silk Blocker Relationship Specialty Start Date End Date Randell Haji MD [address] [place] [phone] PCP - General 04/25/10 07/31/18 documented as of this encounter
--- OUTSIDE RECORDS SUMMARY | 2024-05-02 09:59 | XMS_ITS | Encounter Summary ---
Author Organization [facility] [place] [address] Care Team Providers Care Geothermal Technician Name Role Phone Randell Haji MD Primary Care Provider [phone] Encounter Details Date Type Department Care Team (Latest Contact Info) Description 10/07/2015 12:31 PM EDT - 10/07/2015 11:59 PM EDT Hospital En[place] [phone] Melissa Lehman MD [facility] [address] Breast pain Discharge Disposition: Home Social History [...] 11:00 AM EST Office [place] [phone] Clinic, Dr Alfaro Team None documented as [...] Mastodynia documented in this encounter Care Teams Geothermal Technician Relationship Specialty Start Date End Date Randell Haji MD [address] [place] [phone] PCP - General 04/25/10 07/31/18 documented as of this encounter
--- OUTSIDE RECORDS SUMMARY | 2024-05-02 09:59 | XMS_ITS | Encounter Summary ---
Author Organization [facility] [place] [address] Care Team Providers Care Gut Sorter Name Role Phone Terri Thrasher APRN Primary Care Provider + Encounter Details Date Type Department Care Team (Late st Contact Info) Description 08/06/2018 Ancillary Procedure Radiology Library at [facility] [place] [address] Terri Thrasher APRN [address] [place] [address] Social History Tobacco Use Types Packs/Day Years [...] AM EST Office Visit Orthopaedics at [facility] [place] [address] Clinic, [address] Alfaro Team None documented as [...] Thrasher APRN IMG FILM LIBRARY ORD ERABLES Performing Organization Address City/State/[facility] Co de Phone Number [facility] [place], [place] documented in this encounter Visit Diagnoses Not on filedocumented in this encounter Care Teams Gut Sorter Relationship Specialty Start Date End Date Terri Thrasher APRN PCP - General Family Medicine 08/01/18 02/14/21 documented as of this encounter
--- OUTSIDE RECORDS SUMMARY | 2024-05-02 09:59 | XMS_ITS | Encounter Summary ---
Author Organization [facility] [place] [address] Care Team Providers Care Sustainability Specialist Name Role Phone Terri Thrasher NAMRATA Primary Care Provider + Reason for Referral * Consultation (Routine) - Closed Specialty Diagnoses / Procedures Referred By Contac t Referred To Contact Thoracic Surgery Diagnoses Nicotine dependence, cigarettes, uncomplicated Tobacco abuse counseling Eugenio Hernandez MD [facility] [place] [address] Dot Garcia APRN [facility] [place] [address] Referral ID Status Reason Start Date Expiration Date V isits Requested Visits Authorized [id number] Closed Consult, Test & Treat 09/03/2018 09/03/2019 1 1 Reason for Visit * Reason Comments Advice Only Right infundibulum v s 4mm outpouching on CTA * Consultation (Routine) - Closed Specialty Diagnoses / Procedures Referred By Contac t Referred To Contact Neurosurgery Diagnoses Right infundibulum vs 4mm outpouching on CTA without corresponding symptoms. Mil Darby MD [facility] [place] [address] Eugenio Hernandez MD [facility] [place] [address] Referral ID Status Reason Start Date Expiration Date V isits Requested Visits Authorized [id number] Closed Consult, Test & Treat 08/12/2018 08/12/2019 1 1 Encounter Details Date Type Department Care Team (Late st Contact Info) Description 09/03/2018 1:00 PM EDT Office Visit Neurosurgery at [facility] [place] [address] Eugenio Hernandez MD [facility] [place] [address] Nicotine dependence, cigarettes, uncomplicated; Tobacco abuse counseling; [...] Nicotine Replacement Therapy , September 02, 2012: https://www.federalregister.gov/articles//2013-78384/modifications-to- aarttwes-zq-bpgdhjcz-yckmgzvgfgj-poticsx-jmaictpr-hyt-uuio-qya-wfywmwu-cxgda-fms documented in this encounter Progress Notes * [...] 11:00 AM EST Office [place] [address] Clinic, Dr Alfaro Team None Scheduled Referrals [...] nonruptured documented in this encounter Care Teams Sustainability Specialist Relationship Specialty Start Date End Date Terri Thrasher, NAMRATA PCP - General Family Medicine 08/01/18 02/14/21 documented as of this encounter
--- OUTSIDE RECORDS SUMMARY | 2024-05-02 09:59 | XMS_ITS | Encounter Summary ---
Author Organization [facility] [place] [address] Care Team Providers Care Flame Gouger Name Role Phone Terri Thrasher FORKLIFT TRUCK OPERATOR Primary Care Provider + Encounter Details Date Type Department Care Team (Late st Contact Info) Description 09/09/2018 [place] [address] Veronica Michael Social History Tobacco Use Types [...] pt. * Telephone Encounter - Veronica Michael - 09/09/2018 11:10 AM EDT Images from the original note were not included. LM for pt to call back to reschedule angio. Eugenio Hernandez MD Fogg, Meredith L RN; Veronica Michael; Yelitza Nicole Neurosurgery Nurse [...] 11:00 AM EST [place] [address] Clinic, [address] Alfaro Team None documented as of this encounter Visit Diagnoses Not on filedocumented in this encounter Care Teams Flame Gouger Relationship Specialty Start Date End Date Terri Thrasher APRN PCP - General Family Medicine 08/01/18 02/14/21 documented as of this encounter
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
[2024-05-02] MEDS: Acetaminophen 325 MG TAB 650 MG PO (10:51)
[2024-05-02 12:27] LABS: *AMPHETAMINES SCREEN URINE Negative (Negative); *BARBITURATES SCREEN URINE Negative (Negative); *BENZODIAZEPINES SCREEN URINE Negative (Negative); Cannabinoids THC Negative (Negative); Cocaine Screen,Urine Negative (Negative); METHADONE URINE SCREEN Negative (Negative); OPIATES URINE SCREEN Negative (Negative)
[2024-05-02 12:30] LABS: Tricyclic Antidepressants Negative (Negative)
[2024-05-02 13:41] VITALS: BP 127/80; PULSE 75; RESP 18; O2SAT 97
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
== END 2024-05-02 13:42 | disposition home or self-care (01) ==
PROVIDERS: Emergency Provider Registered Nurse Emergency; PCP Family Medicine
DX: R45.851 Suicidal ideations (principal); S60.812A Abrasion of left wrist, initial encounter; Z87.891 Personal history of nicotine dependence; X78.1XXA Intentional self-harm by knife, initial encounter
CPT/HCPCS: 00123; 80307; 81025; 96127; 99284

== ENCOUNTER 2024-05-09 07:43 | Emergency (ER) | payer MEDICARE, MEDICAID, SELFPAY ==
[2024-05-09 07:48] VITALS: BP 134/84; PULSE 94; RESP 20; TEMP 36.6; O2SAT 97
--- NOTE | 2024-05-09 08:00 | DI.RAD_ITS ---
Exam(s) XR CHEST 2V PA LATERAL EXAM: XR CHEST 2V PA LATERAL CLINICAL HISTORY: cough TECHNIQUE: 2D digital imaging was performed. Two views. COMPARISON: CR XR CHEST 2V PA LATERAL from 07/02/2023 FINDINGS: HEART: Normal size. Aorta: Not dilated. PULMONARY VASCULATURE: Normal. MEDIASTINUM: Unremarkable. LUNGS: Clear. PLEURAL SPACE: No pleural effusion or pneumothorax. BONE:Unremarkable for age. SOFT TISSUES: Unremarkable. IMPRESSION: No acute abnormality. DATA REPOSITORY: RADIATION DOSE DELIVERED:
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
[2024-05-09] MEDS: Dexamethasone 4 MG TAB 10 MG PO (08:29)
[2024-05-09 08:36] LABS: COVID-19 PCR Negative (Negative); Influenza A PCR Negative (Negative); Influenza B PCR Negative (Negative); RSV PCR Negative (Negative)
[2024-05-09 08:38] LABS: Source Nasopharynx
[2024-05-09 08:39] VITALS: PULSE 94; RESP 20; O2SAT 97
[2024-05-09] MEDS: Albuterol/Ipratropium 3 ML UPD VIAL UPD (08:39)
== END 2024-05-09 09:16 | disposition home or self-care (01) ==
PROVIDERS: Emergency Provider Emergency Medicine; PCP Family Medicine
DX: J06.9 Acute upper respiratory infection, unspecified (principal)
CPT/HCPCS: 87637; 94640; 99284; 71046; J7620; J8540

== ENCOUNTER → 2024-05-21 08:02 | Outpatient (BNVA) | payer MEDICARE, MEDICAID, SELFPAY | PROVIDERS: PCP Family Medicine; Referring Provider Physician Assistant Medical; Visit Provider Psychiatry & Neurology Neurology | DX: G43.009 Migraine without aura, not intractable, without status migrainosus (principal); R20.2 Paresthesia of skin; I67.1 Cerebral aneurysm, nonruptured | CPT/HCPCS: 95910; 99215 ==

== ENCOUNTER 2024-12-18 06:29 | Emergency (ER) | payer MEDICARE, MEDICAID, SELFPAY ==
[2024-12-18 06:32] VITALS: BP 131/78; PULSE 88; RESP 18; TEMP 36.9; O2SAT 96
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
[2024-12-18] MEDS: Acetaminophen 325 MG TAB 650 MG PO (06:52)
[2024-12-18] MEDS: Chloraseptic Spray 117 ML BTL MM (07:18)
== END 2024-12-18 07:24 | disposition home or self-care (01) ==
PROVIDERS: Emergency Provider Student in an Organized Health Care Education/Training Program
DX: J02.9 Acute pharyngitis, unspecified (principal); Z87.891 Personal history of nicotine dependence
CPT/HCPCS: 87880; 99283; 87081

== ENCOUNTER 2025-01-08 00:41 | Outpatient (CLI) | payer MEDICARE, MEDICAID, SELFPAY ==
--- NOTE | 2025-01-08 12:25 | DI.RAD_ITS ---
Exam(s) XR ANKLE LT COMPLETE EXAM: XR ANKLE LT COMPLETE CLINICAL HISTORY: Lt ankle pain,M25.572-pain in lt ankle and joints of lt foot, progressively. TECHNIQUE: 2D digital imaging was performed. COMPARISON: CR XR ANKLE LT COMPLETE from 09/23/2023 FINDINGS: 3 views There is soft tissue swelling, more so medially than laterally. No evidence of fracture or widening the ankle mortise. Talar dome unremarkable. There are no degenerative changes in the tibiotalar and subtalar joints. Small inferior calcaneal spur is noted. There is no calcification in the plantar fascia. Tiny posterior calcaneal enthesophyte noted. No osseous tarsal coalition. IMPRESSION: Findings as above. No acute osseous findings. DATA REPOSITORY: RADIATION DOSE DELIVERED:
== END 2025-01-08 01:01 ==
LOC: DI 00:41
PROVIDERS: Visit Provider Family Medicine
DX: M25.572 Pain in left ankle and joints of left foot (principal)
CPT/HCPCS: 73610

== ENCOUNTER → 2025-04-12 02:24 | Outpatient (CLI) | payer MEDICARE, MEDICAID, SELFPAY ==
--- NOTE | 2025-04-12 | DI.MRI_ITS ---
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 The intra cavernous and supraclinoid ICAs are otherwise unremarkable. Both A1 segments are patent as are the anterior cerebral arteries and there is no evidence of aneurysm at the level the anterior communicating artery. Both middle cerebral arteries are patent with no significant stenosis nor thrombosis and there are no aneurysms in the cerebral arteries nor in the distal branches of the MCAs. POSTERIOR CIRCULATION: The basilar artery is formed by both vertebral arteries at the skull base. Basilar artery ascends with normal luminal diameter. Distally it gives off patent superior cerebellar arteries and above this level terminates as patent bilateral posterior cerebral arteries. The left posterior cerebral artery also receives flow from a posterior communicating artery on the left side of the [id number] (persistent circulation). IMPRESSION: 1. Findings at the origin of both ophthalmic arteries are unchanged from the prior MRA study of 04/29/2024. 2. Recommend follow-up CT angiography. The enhanced resolution of CT angiography may add information here with respect to the exact nature of these findings at the origin of the ophthalmic arteries off of the intra cavernous internal carotid arteries. 3. Other arteries in the brain appear unremarkable. DATA REPOSITORY:
== END ==
LOC: DI 02:24
PROVIDERS: Visit Provider Occupational Therapist
DX: I67.1 Cerebral aneurysm, nonruptured (principal)
CPT/HCPCS: 70544

== ENCOUNTER → 2025-05-19 00:02 | Outpatient (CLI) | payer MEDICARE, MEDICAID, SELFPAY ==
--- NOTE | 2025-05-19 10:50 | DI.US_ITS ---
Exam(s) US RENAL EXAM: US RENAL CLINICAL HISTORY: FAM HX POLYCYSTIC KIDNEY FATHER DX'D, SON W/ UNILATERAL RENAL AGENISIS. TECHNIQUE: Briggs scale imaging and color doppler were used. COMPARISON: No exams were available for comparison FINDINGS: Right kidney: 10.5cm Echogenicity: Normal Hydronephrosis: No Cyst or mass: No Nephrolithiasis: No Left kidney: 11.9cm Echogenicity: Normal Hydronephrosis: No Cyst or mass: No Nephrolithiasis: No Bladder:Normal. Both ureteral jets were visualized. Prevoid vol:134 cc Postvoid vol:23 cc IMPRESSION: Negative renal ultrasound. DATA REPOSITORY:
== END ==
PROVIDERS: PCP Family Medicine; Visit Provider Family Medicine
DX: Z82.71 Family history of polycystic kidney (principal)
CPT/HCPCS: 76770